=== PATIENT | female | born 1940 | race Caucasian/White ===

== ENCOUNTER → 2018-04-21 10:39 | Outpatient (CLI) | payer MEDICARE, SELFPAY | PROVIDERS: Family Provider Family Medicine; PCP Family Medicine; Visit Provider Family Medicine | DX: R00.0 Tachycardia, unspecified (principal); R42 Dizziness and giddiness | CPT/HCPCS: 93225; 93226 ==

== ENCOUNTER → 2020-01-16 06:46 | Outpatient (CLI) | payer MEDICARE, SELFPAY ==
--- NOTE | 2020-01-16 10:58 | STRESSREP ---
Stress Test Report Pharmacologic myocardial perfusion stress test. 79-year-old lady with a history of near syncope. Medications: Atorvastatin lisinopril hydrochlorothiazide. Stress protocol: Resting EKG demonstrates normal sinus rhythm with a rate of 65 bpm normal intervals are noted. Resting blood pressure is 162/80 mmHg. 0.4 mg of regadenoson was infused per usual protocol followed Intravenous saline flush injection continuous EKG monitoring was performed. The maximum heart rate attained was 90 bpm which was 63% of maximum predicted heart rate the maximum workload was 1 metabolic equivalent. At rest there were no ST or T wave changes noted to suggest ischemia at peak infusion nonspecific ST-T wave changes were noted. Occasional premature ventricular complexes present. The resting blood pressure 162/80 with a final blood pressure 130/78. Myocardial perfusion protocol. 15.0 mCi of technetium 99m sestamibi was injected at rest. 0.4 mg of regadenoson was infused per usual protocol. At peak infusion 45.0 mCi of technetium 99m sestamibi was injected stress images were obtained stress and rest images are reconstructed and compared in the short axis vertical long horizontal long axis. Gated images were also obtained per Perfusion SPECT analysis: Review of the stress images demonstrate normal uptake of tracer noted in all areas of the myocardium. The resting images similarly demonstrate normal uptake of tracer noted in all areas of the myocardium. No reversibility is noted to suggest ischemia no previous infarct is noted. Gated SPECT analysis: The gated ejection fraction is 66%. Conclusion: Normal pharmacologic myocardial perfusion stress test. Preserved ejection fraction.
== END ==
PROVIDERS: PCP Family Medicine; Referring Provider Family Medicine; Visit Provider Family Medicine
DX: R42 Dizziness and giddiness (principal); R55 Syncope and collapse; R07.89 Other chest pain
CPT/HCPCS: 78452; 93017; 93225; 93226; A9500; A4216; J2785

== ENCOUNTER → 2020-02-09 10:39 | Outpatient (CLI) | payer MEDICARE, SELFPAY ==
[2020-01-24 13:36] VITALS: BMI 40.6
--- NOTE | 2020-02-09 10:41 | ECHOD_ITS ---
Reason For Study: Chest tightness Procedure This was a 2D Doppler, Color Flow transthoracic echocardiogram. Exam performed in department. Left Ventricle Normal LV size. The estimated ejection fraction is 60 %. Stage 2 diastolic dysfunction. No regional wall motion abnormalities noted. Right Ventricle Normal RV size. Normal systolic function. Atria The left atrium is moderately enlarged. Normal right atrium. No doppler evidence for ASD. Mitral Valve There is no mitral valve stenosis. Mild (1+) mitral valve insufficiency. Tricuspid Valve There is no tricuspid stenosis. Trivial tricuspid valve insufficiency. Pulmonary artery systolic pressure is 35 mmHg. Aortic Valve Moderate diffuse aortic valve thickening. There is no aortic stenosis. No aortic valve insufficiency. Pulmonic Valve There is no pulmonic valvular stenosis. Mild (1+) pulmonic valve insufficiency. Great Vessels Normal aortic root. Pericardium/Pleural No pericardial effusion. MMode/2D Measurements & Calculations LVIDd: 4.7 cm IVSd: 1.4 cm LVOT diam: 2.1 cm LVIDs: 3.1 cm LVPWd: 0.94 cm LVOT area: 3.4 cm2 RVDd: 3.5 cm FS: 33.2 % Ao root diam: 3.8 cm LAV(MOD-bp): 76.0 ml LVAd ap4: 29.0 cm2 LAV(MOD-bp) Indexed: 36.8 ml/m2 EDV(MOD-sp4): 88.0 ml LAV(MOD-sp2): 66.5 ml EDV(sp4-el): 91.6 ml LAV(MOD-sp4): 84.1 ml LVAs ap4: 18.3 cm2 ESV(MOD-sp4): 42.9 ml ESV(sp4-el): 41.9 ml EF(MOD-sp4): 51.3 % EF(sp4-el): 54.2 % SV(MOD-sp4): 45.1 ml SV(sp4-el): 49.7 ml LA A4 area: 25.1 cm2 LA dimension(2D): 4.3 cm RA A4 area: 20.3 cm2 Doppler Measurements & Calculations MV E max candido: 88.9 cm/sec Lat Peak E' Candido: 5.5 cm/sec Med Peak E' Candido: 6.9 cm/sec MV A max candido: 91.5 cm/sec E/E' lat: 16.2 E/E' med: 13.0 MV E/A: 0.97 Ao V2 max: 167.4 cm/sec LV V1 max: 97.1 cm/sec PA V2 max: 75.8 cm/sec Ao max P.2 mmHg LV V1 max P.8 mmHg KAYY(V,D): 2.0 cm2 TR max candido: 255.5 cm/sec TR max P.1 mmHg Interpretation Summary The estimated ejection fraction is 60 %. Stage 2 diastolic dysfunction. Mild (1+) mitral valve insufficiency. Moderate diffuse aortic valve thickening. Ordering Physician: Michelle Luque Referring Physician: Norm Shankar Performed By: Valerie Mcfadden, WILIAM
== END ==
PROVIDERS: PCP Family Medicine; Referring Provider Specialist; Visit Provider Specialist
DX: R94.31 Abnormal electrocardiogram [ECG] [EKG] (principal); R07.9 Chest pain, unspecified; R42 Dizziness and giddiness
CPT/HCPCS: 93306

== ENCOUNTER → 2020-07-12 09:16 | Outpatient (CLI) | payer MEDICARE, SELFPAY ==
[2020-07-04 14:18] VITALS: BMI 42.3
--- NOTE | 2020-07-13 11:26 | PFT ---
INTRODUCTION: The patient is a 79-year-old female that presents for pulmonary function studies secondary to a diagnosis of shortness of breath. Respiratory therapy reports good patient effort. Bronchodilators were used during testing. INTERPRETATION: Forced expiration spirometry demonstrates no evidence of a large airways obstructive ventilatory defect. There was no significant response to aerosolized bronchodilators, based upon strict ATS criteria. There was, however, a rather robust mid flow bronchodilator response. Spirograms are of good quality and plateau normally. Body plethysmography was performed and revealed a trend towards hyperinflation. Diffusing capacity by single breath CO is within normal limits. IMPRESSION: Subtle stigmata of possible small airways disease. Clinical correlation is recommended.
== END ==
PROVIDERS: PCP Family Medicine; Referring Provider Specialist; Visit Provider Specialist
DX: R06.02 Shortness of breath (principal)
CPT/HCPCS: 94060; 94726; 94729

== ENCOUNTER → 2020-12-28 09:46 | Outpatient (CLI) | payer MEDICARE, SELFPAY ==
[2020-08-15 14:44] VITALS: BMI 42.7
--- NOTE | 2020-12-28 09:53 | RAD_ITS ---
PROCEDURE: Fluoroscopic guided left Hip Injection DATE: 12/28/2020. INDICATION: Female, 80 years old. Chronic left hip pain. PHYSICIAN: David Davey M.D. MEDICATIONS: 80 mg of KENALOG and 3 cc of 1% LIDOCAINE. 2% lidocaine administered subcutaneously for local anesthesia. ACCESS SITE: Left hip. NEEDLE: 22-gauge spinal needle. FLUOROSCOPY TIME (if supplied): (0:38) minutes/seconds. One image was obtained. FINDINGS: The risks, benefits, and alternatives to the procedure were explained to the patient. The specific risks of bleeding, infection, and neurovascular injury were detailed and accepted. Witnessed informed consent was obtained. A 22-gauge spinal needle was positioned under radiographic fluoroscopic localization. Approximately 2 cc of ISOVUE 300 instilled for localization purposes. Medication was then injected. The patient tolerated the procedure well without any immediate complications. RAD/Inj/Asp Kt Jt Should/Hip/Knee IMPRESSION: 1. Successful fluoroscopic guided hip injection. Electronically Signed: David Davey MD at 12:08 EDT , Service support ,
== END ==
PROVIDERS: PCP Family Medicine
DX: M16.12 Unilateral primary osteoarthritis, left hip (principal)
CPT/HCPCS: 20610; 77002; Q9967

== ENCOUNTER 2021-01-07 17:07 | Emergency (ER) | payer MEDICARE, SELFPAY ==
[2020-08-15 14:44] VITALS: BMI 42.7
[2021-01-07 17:08] VITALS: BP 164/78; PULSE 69; RESP 19; TEMP 36.2; O2SAT 97; BMI 42.5
--- NOTE | 2021-01-07 19:42 | CT_ITS ---
EXAM: CT HEAD WITHOUT INTRAVENOUS CONTRAST : 1940 CLINICAL INDICATION: fall/injury TECHNIQUE: Multiple axial images were obtained of the head without intravenous contrast. This CT exam was performed using one or more of the following dose reduction techniques: automated exposure control, adjustment of the mA and/or kV according to patient size, and/or use of iterative reconstruction technique. This report was created using [employer] report generation technology. COMPARISON: None. FINDINGS: BRAIN AND EXTRA-AXIAL SPACES: There is a 1.2 x 1.2 cm hypoechoic structure in the left basal ganglia may represent a remote lacunar infarct. No intra- or extra-axial hemorrhage. No intracranial mass or mass effect. Posterior fossa structures are unremarkable. Ventricles are appropriate for age. No hydrocephalus. Basal cisterns are patent. BONES/JOINTS: Unremarkable. No discrete lytic or blastic abnormalities. SINUSES: Unremarkable as visualized. Clear. MASTOID AIR CELLS: Unremarkable. Clear. ORBITS: Visualized globes, extraocular muscles, optic nerves and retrobulbar fat appear unremarkable. CT/Brain/Head without Contrast IMPRESSION: 1. No acute intracranial abnormality. 2. Remote left sided lacunar infarct. Individualized dose optimization techniques were used for this CT. at 2011 Reported and signed by: Francis Martinez MD Electronically Signed: Francis Martinez MD at 20:10 EDT Tel , Service support ,
--- NOTE | 2021-01-07 19:43 | EDS_ITS ---
HPI HPI - Fall History of Present Illness Chief Complaint: Fall Informant: patient Occured/Mechanism Occurred: Days (2) Mechanism/Context: Yes Same level fall and Yes trip Pain/Injury Pain Location: head and face Current Severity: Mild Maximum Severity: Mild Associated Symptoms Associated Symptoms: Negative for Parasthesias, Weakness, Loss of function, Inability to ambulate, Loss of consciousness and Amnesia Narrative Narrative: Patient states she had an injection in her left hip recently, it has been giving her some numbness in her left daley and ankle, as result he has been twisting at times, and it did so 2 days ago when she was walking on the sidewalk, this caused her to fall and hit her forehead and face on the concrete. She did not think anything of it because it was not bothering her too much, she has chronic headaches and has a headache but states she does not feel that the injury gave her 1. She had routine appointment at the eye doctor today, her vision and eyes were fine but with the periorbital ecchymosis around her right eye that is present now, it was recommended that she have a head scan. She denies any other injury. [facility] Medical History (Updated 01/07/21 @ 20:[address] Kapil Sy MD) Ankle fracture, bimalleolar, closed CKD (chronic kidney disease) stage 3, GFR 30-59 ml/min Essential hypertension Generalized osteoarthrosis, unspecified site History of solitary pulmonary nodule Holter monitor, abnormal Hyperlipidemia Home Medications multivitamin 1 tab PO QAM 01/20/20 [History Last Taken Unknown] biotin 5,000 mcg sublingual tablet 5,000 mcg SUBLINGUAL DAILY 05/01/20 [History Last Taken Unknown] aspirin 81 mg tablet,delayed release 81 mg PO DAILY 06/06/20 [History Last Taken Unknown] calcium carbonate 200 mg calcium (500 mg) chewable tablet 200 mg PO BID PRN 05/10 [History Last Taken Unknown] simethicone 125 mg chewable tablet 125 mg PO QD-BID PRN 06/06/20 [History Last Taken Unknown] coenzyme Q10 100 mg tablet 100 mg PO DAILY 07/04/20 [History Last Taken Unknown] hydrochlorothiazide 25 mg tablet mg PO 07/04/20 [History Last Taken Unknown] red yeast rice 600 mg capsule 600 mg PO BID 07/04/20 [History Last Taken Unknown] metoprolol succinate 100 mg tablet,extended release 24 hr 100 mg PO DAILY #90 tab 08/27/20 [Rx Last Taken Unknown] Allergy/AdvReac Type Severity Reaction Status Date / Time diltiazem AdvReac Intermediate Flushed, Verified 01/07/21 17:10 dizzy, h/a, sob, irreg HR Dgfbjni-Fix-Iso Reductase AdvReac Other Verified 01/07/21 17:11 Inhibitor Family History Mother Heart disease Hypertension Father Hypertension Kidney disease Surgical History History of arthroscopy of right knee History of carpal tunnel surgery of right wrist Social History (Updated 08/15/20 @ 16:[address] Michelle Luque MD) Smoking Status: Never smoker how long ago did patient quit smokin years ago alcohol intake: never substance use type: does not use caffeine: Yes Type: coffee Number of servings: 2 ROS ROS ED Constitutional Constitutional ED: Denies chills or fever(s) Eyes Eyes: Denies change in vision or diplopia ENT ENT ED: Denies rhinorrhea or sore throat Cardiovascular Cardiovascular: Denies chest pain or palpitations Respiratory/Chest Respiratory/Chest: Denies cough or dyspnea Gastrointestinal Gastrointestinal: Denies abdominal pain, diarrhea, nausea or vomiting Genitourinary Genitourinary ED: Denies dysuria or hematuria Musculoskeletal Musculoskeletal: Reports neck pain; Denies back pain Integumentary Reports Abrasions and other Details: contusion R forehead ; Denies abscess or rash Neurologic Neurologic: Denies paresthesias or weakness Psychiatric Psychiatric: Denies anxiety or suicidal thoughts EXAM Physical Exam Const Vital Signs: 01/07/21 17:08 01/07/21 19:59 Temperature 97.2 F L Temperature Source Temporal Pulse Rate 69 Respiratory Rate 19 H Respiratory Effort Normal Blood Pressure 164/78 H Blood Pressure Mean 106 Pulse Ox 97 Oxygen Delivery Method Room Air Positive well nourished and well developed General Appearance ED: well developed and NAD HEENT Reports moist mucous membranes HEENT Narrative: Mild tenderness right forehead without crepitance or depression. Right periorbital ecchymosis. Abrasion right chin. Full range of motion of the jaw without difficulty. normocephalic and trauma Eyes PERRL and EOMs intact bilaterally Neck full ROM and supple Neck Narrative: Mildly tender left paraspinal musculature base of neck, no midline tenderness General: tenderness Resp normal respiratory effort and clear to auscultation bilaterally Cardio regular rate, regular rhythm and no murmurs GI non-tender and non-distended Auscultation: normoactive bowel sounds Palpation: soft Back/Spine no CVA tenderness General Back: other FROM Extremity normal to inspection General Extremety ED: Negative for edema, pulses abnormal or tenderness General Extremity: Negative for edema or pulses abnormal Neuro oriented x3, CN's II-XII intact bilaterally and no sensory deficits noted Sensorium / Orientation: awake and alert Motor Exam: strength 5/5 throughout Skin no rashes or lesions noted MDM MDM MDM Narrative Medical decision making narrative: Patient is walking well without any leg weakness. I discussed the lacunar infarct seen on her CT scan, she has never had any clinical symptoms of a stroke, but she is having the numbness in the left lower extremity that we discussed, however she states this started just after hip joint cortisone injection 2 weeks ago and is probably related. I am comfortable letting her go home and follow-up. She is already on a full aspirin a day which I would continue. She was reassured with regards to her relatively minor injury, I suspect the contusion/hematoma on her forehead settled with gravity looking like a periorbital ecchymosis, but there is no evidence of an intracranial injury. We discussed reasons to return and follow-up and she is comfortable with that plan. We also discussed using an Francisco wrap or an ankle brace to give her more stability for her ankle. She does not have a foot drop. Radiography Diagnostic Testing: Radiology Impression Brain CT 01/07/21 19:42 IMPRESSION: 1. No acute intracranial abnormality. 2. Remote left sided lacunar infarct. Individualized dose optimization techniques were used for this CT. at 2011 Reported and signed by: Francis Martinez MD Electronically Signed: Francis Martinez MD at 20:10 EDT Tel , Service support , Discharge Plan Triage Chief Complaint: Fall ED Provider: Kapil Sy Dx/Rx/DC Orders Clinical Impression: Closed head injury without loss of consciousness, Accidental fall, Abrasion of face, Lacunar infarction Instructions: ED Head Injury (Adult) Prescriptions: No Action multivitamin Tablet 1 tab PO QAM RF: 0 biotin 5,000 mcg tablet, sublingual 5,000 mcg SUBLINGUAL DAILY RF: 0 aspirin [Adult Low Dose Aspirin] 81 mg tablet,delayed release (DR/EC) 81 mg PO DAILY RF: 0 simethicone [Gas-X Extra Strength] 125 mg tablet,chewable 125 mg PO QD-BID PRNRF: 0 calcium carbonate [Tums] 200 mg calcium (500 mg) tablet,chewable 200 mg PO BID PRNRF: 0 hydrochlorothiazide 25 mg tablet PO RF: 0 coenzyme Q10 100 mg tablet 100 mg tablet 100 mg PO DAILY RF: 0 red yeast rice 600 mg capsule 600 mg PO BID RF: 0 metoprolol succinate 100 mg tablet extended release 24 hr 100 mg PO DAILY Qty: 90 RF: 3 Primary Care Provider: Norm Shankar Referrals: Norm Shankar MD [Primary Care Provider] - As Needed Disposition Disposition: Home, self care
[2021-01-07 20:42] VITALS: RESP 18
== END 2021-01-07 20:42 | disposition home or self-care (01) ==
PROVIDERS: Emergency Provider Emergency Medicine; PCP Family Medicine
DX: S00.81XA Abrasion of other part of head, initial encounter (principal); W01.198A Fall on same level from slipping, tripping and stumbling with subsequent striking against other object, initial encounter; Y93.01 Activity, walking, marching and hiking; Y92.480 Sidewalk as the place of occurrence of the external cause; Y99.9 Unspecified external cause status; Z79.82 Long term (current) use of aspirin; Z86.73 Personal history of transient ischemic attack (TIA), and cerebral infarction without residual deficits; Z87.891 Personal history of nicotine dependence; I63.81 Other cerebral infarction due to occlusion or stenosis of small artery; I12.9 Hypertensive chronic kidney disease with stage 1 through stage 4 chronic kidney disease, or unspecified chronic kidney disease; N18.30 Chronic kidney disease, stage 3 unspecified; E78.5 Hyperlipidemia, unspecified
CPT/HCPCS: 70450; 99282

== ENCOUNTER 2022-04-18 11:50 | Inpatient (IN) | payer MEDICARE, SELFPAY ==
[2022-04-18] VITALS (28 sets, daily range): BP systolic 106–172; BP diastolic 44–121; PULSE 53–152; RESP 12–23; TEMP 36.1–36.8; O2SAT 92–98; BMI 40.3; BMI 40.6
--- NOTE | 2022-04-18 12:02 | EKG12_ITS ---
Test Reason : CP/PALPS Blood Pressure : / mmHG Vent. Rate : 134 BPM Atrial Rate : 000 BPM P-R Int : 000 ms QRS Dur : 086 ms QT Int : 300 ms P-R-T Axes : 000 025 052 degrees QTc Int : 448 ms Atrial fibrillation with rapid ventricular response Nonspecific ST and T wave abnormality Abnormal ECG Confirmed by MANUELA BERNSTEIN, FRANCK ([id number]), deputy editor in chief CLARISSE JOHNSON ([id number]) on 04/21/2022 10:08:23 AM Referred By: BETTY Confirmed By:FRANCK ROY MD
--- NOTE | 2022-04-18 12:07 | EDS_ITS ---
HPI History of Present Illness Chief Complaint: Chest Pain Informant: patient Narrative Narrative: Patient presents via EMS. She noticed a couple hours ago that she had some slight discomfort in her left upper chest that went to count of her shoulder base of the neck and back of the shoulder area. She checked her blood pressure and it was about 152/122. However, the monitor stated that her heart rate was very quick and very variable with its rate. She did not feel the palpitations. She did not feel short of breath. She did not feel nauseated or sweaty. She did feel slightly lightheaded but has had problems with feeling lightheaded for couple years. She was placed on metoprolol couple years ago and that did help but she has been having more intermittent episodes with this nonspecific lightheadedness recently. It is not normally associated with chest pressure. She does not know a bit pain associated with heart rhythm problems. She denies any history of heart rhythm abnormalities. However, her problem list has a listing of nonsustained V. tach and atrial tachycardia. She does have history of chronic kidney disease. There have been no recent medication changes. Nothing really makes her symptoms better or worse although her symptoms are gone now. She is still tachycardic but does not feel this. [facility] Medical History CKD (chronic kidney disease) stage 3, GFR 30-59 ml/min Essential hypertension Generalized osteoarthrosis, unspecified site History of solitary pulmonary nodule Hyperlipidemia Home Medications multivitamin 1 tab PO DAILY 01/20/20 [History Last Taken 04/17/22] aspirin 81 mg tablet,delayed release (Adult Low Dose Aspirin) 81 mg PO DAILY 06/06/20 [History Last Taken 04/17/22] hydrochlorothiazide 25 mg tablet 25 mg PO DAILY 07/04/20 [History Last Taken 04/18/22] ezetimibe 10 mg tablet (Zetia) 10 mg PO DAILY CHOLESTEROL 04/18/22 [History Last Taken 04/18/22] lisinopril 40 mg tablet 40 mg PO DAILY PRN BP 04/18/22 [History Last Taken 04/18/22] metoprolol succinate 100 mg tablet,extended release 24 hr 100 mg PO DAILY HEART 04/18/22 [History Last Taken 04/18/22] Allergy/AdvReac Type Severity Reaction Status Date / Time amlodipine [From [facility]] AdvReac Intermediate swelling Verified 04/18/22 12:54 diltiazem AdvReac Intermediate Flushed, Verified 04/18/22 12:54 dizzy, h/a, sob, irreg HR Ldfuyui-TMS-MvD Reductase AdvReac Other Verified 04/18/22 12:54 Inhibitor [Vsehfqk-Ouz-Iaz Reductase Inhibitor] Family History Mother Heart disease Hypertension Father Hypertension Kidney disease Surgical History History of arthroscopy of right knee History of carpal tunnel surgery of right wrist Social History Smoking Status: Never smoker how long ago did patient quit smokin years ago alcohol intake: never substance use type: does not use caffeine: Yes Type: coffee Number of servings: 2 ROS ROS ED Constitutional Constitutional ED: Denies chills or fever(s) Eyes Eyes: Denies change in vision ENT ENT ED: Denies sore throat Cardiovascular Cardiovascular: Reports chest pain; Denies palpitations or racing heartbeat Respiratory/Chest Respiratory/Chest: Denies cough or dyspnea Gastrointestinal Gastrointestinal: Denies nausea or vomiting Musculoskeletal Musculoskeletal: Reports neck pain; Denies arthralgias or back pain Integumentary Denies Abrasions or rash Neurologic Neurologic: Denies headache(s), paresthesias or weakness Endocrine Endocrinology: Denies polydipsia or polyuria Hematologic/Lymphatic Hematologic/Lymphatic: Denies easy bleeding, easy bruising or lymphadenopathy Allergic/Immunologic Allergic/Immunologic ED: Denies urticaria EXAM Physical Exam Const Vital Signs: 04/18/22 11:51 04/18/22 12:03 04/18/22 12:25 Temperature 96.9 F L Temperature Source Temporal Pulse Rate 140 H 150 H 144 H Respiratory Rate 13 20 H Blood Pressure 172/121 H 146/103 H Blood Pressure Mean 138 117 Blood Pressure Source Blood Pressure Position Blood Pressure Location Pulse Ox 96 92 Oxygen Delivery Method Room Air Room Air 04/18/22 12:25 04/18/22 12:28 04/18/22 12:32 Temperature Temperature Source Pulse Rate 133 H 138 H Respiratory Rate Blood Pressure Blood Pressure Mean Blood Pressure Source Blood Pressure Position Blood Pressure Location Pulse Ox 95 Oxygen Delivery Method Room Air 04/18/22 12:33 04/18/22 12:35 04/18/22 12:38 Temperature Temperature Source Pulse Rate 152 H 127 H 145 H Respiratory Rate 17 Blood Pressure 128/97 H Blood Pressure Mean 107 Blood Pressure Source Blood Pressure Position Blood Pressure Location Pulse Ox 94 Oxygen Delivery Method Room Air 04/18/22 12:41 04/18/22 12:44 04/18/22 12:45 Temperature Temperature Source Pulse Rate 133 H 126 H 143 H Respiratory Rate 19 H Blood Pressure 136/105 H Blood Pressure Mean 115 Blood Pressure Source Blood Pressure Position Blood Pressure Location Pulse Ox 93 Oxygen Delivery Method Room Air 04/18/22 14:23 04/18/22 14:30 Temperature 97.4 F L 97.4 F L Temperature Source Temporal Temporal Pulse Rate 145 H 132 H Respiratory Rate 23 H 21 H Blood Pressure 146/111 H 146/111 H Blood Pressure Mean 122 122 Blood Pressure Source Monitor Blood Pressure Position Semi-Fowlers Blood Pressure Location Right Arm Pulse Ox 95 98 Oxygen Delivery Method Room Air Room Air Positive well nourished General Appearance ED: NAD HEENT Reports moist mucous membranes Eyes General Eye ED: Negative for scleral icterus Neck supple and no JVD Chest Wall inspection of chest normal Resp normal respiratory effort Auscultation: Negative for rales, rhonchi or wheezes Cardio Negative for regular rate or regular rhythm Rate: tachycardic Rhythm: abnormal rhythm GI normal to inspection, nondistended, normoactive bowel sounds, soft to palpation and non-tender Back/Spine no CVA tenderness Extremity normal to inspection General Extremety ED: Negative for edema or pulses abnormal General Extremity: Negative for edema or pulses abnormal Neuro Sensorium / Orientation: awake and alert Psych mental status grossly normal Skin no rashes or lesions noted MDM MDM MDM Narrative Medical decision making narrative: Patient CBC is overall normal. Electrolytes are generally unremarkable. TSH troponin magnesium are good. Chest x-ray shows some poor inspiration and mild atelectasis. I give the patient 3 doses of metoprolol for a total of 15 mg. Her heart rate came down about 125. Her symptoms were gone. But the heart rate went back up to the 140s and she got a little of the chest tightness again. We did repeat that EKG. It showed fibrillation still but did not show any acute ST or T wave changes. I discussed the case with Dr. Mccarthy. My concern is that this patient is having progressive tachycardia unrelieved with metoprolol and an allergy to diltiazem. It was recommended we start amnio as a bolus and drip. This was done. I am talking with hospitalist about admission. Lab Data Attestation: I reviewed the patient's lab results. Labs: Laboratory Results - last 24 hr 04/18/22 04/18/22 12:03 12:03 WBC 8.6 RBC 4.29 Hgb 12.9 Hct 39.2 MCV 91.4 MCH 30.1 MCHC 32.9 RDW Std Deviation 40.9 RDW Coeff of Robyn 12.4 Plt Count 319 MPV 11.1 Immature Gran % (Auto) 0.200 Neut % (Auto) 67.7 Lymph % (Auto) 18.6 L [place] % (Auto) 11.8 H Eos % (Auto) 1.6 Baso % (Auto) 0.1 Absolute Neuts (auto) 5.8 Absolute Lymphs (auto) 1.60 Nucleated RBC % 0 Sodium 141 Potassium 4.2 Chloride 108 H Carbon Dioxide 28.0 Anion Gap 5 BUN 20 H Creatinine 0.86 Estim Creat Clear Calc 43.16 Est GFR (MDRD) Af Amer 81 Est GFR (MDRD) Non-Af 67 BUN/Creatinine Ratio 23.1 H Glucose 102 Calcium 9.3 Magnesium 2.3 Troponin I High Sens 13 TSH 3.50 Radiography Diagnostic Testing: Clinical Impression(s) from Imaging Studies Chest X-Ray 04/18/22 12:10 IMPRESSION: Poor inspiration with some bibasilar atelectasis. Electronically Signed: Deven Barton MD at 12:31 EDT , EKG Initial EKG: Comments: EKG done for rapid heart rate read by me shows atrial fibrillation with overall rate of 134 at this time. No ventricular ectopy is noted. No acute ST elevation or depression is noted. QRS duration and QTc are normal. This is a change from her EKG of 02 Feb 2015 where she was in a normal sinus rhythm. Discharge Plan Triage Chief Complaint: Chest Pain ED Provider: Minh Joe Dx/Rx/DC Orders Clinical Impression: New onset atrial fibrillation, Atrial fibrillation with rapid ventricular response, Chest pain Prescriptions: No Action multivitamin Tablet 1 tab PO DAILY aspirin [Adult Low Dose Aspirin] 81 mg tablet,delayed release (DR/EC) 81 mg PO DAILY hydrochlorothiazide 25 mg tablet 25 mg PO DAILY lisinopril 40 mg tablet 40 mg PO DAILY PRN (Reason: BP) ezetimibe [Zetia] 10 mg tablet 10 mg PO DAILY metoprolol succinate 100 mg tablet extended release 24 hr 100 mg PO DAILY Rx Instructions: TAKE 1 TABLET EVERY DAY Primary Care Provider: Norm Shankar Referrals: Norm Shankar MD [Primary Care Provider] - Disposition Disposition: Acute Care Hospital [facility]
--- NOTE | 2022-04-18 12:10 | RAD_ITS ---
STUDY: X-RAY CHEST REASON FOR EXAM: Female, 81 years old. chest pain TECHNIQUE: Single AP portable view of the chest. COMPARISON: 02/01/2015 FINDINGS: Poor inspiration with some bibasilar atelectasis. There is no demonstrated pleural abnormality. Normal size heart. Normal mediastinum and benito. Normal visualized pulmonary arteries. Normal visualized aortic arch and descending thoracic aorta. Normal visualized thoracic spine. Normal visualized ribs, clavicles, and shoulders. There is no demonstrated abnormality of the visualized soft tissue structures of the upper abdomen. RAD/Chest 1 View (Portable) IMPRESSION: Poor inspiration with some bibasilar atelectasis. Electronically Signed: Deven Barton MD at 12:31 EDT ,
[2022-04-18] MEDS: Metoprolol Tartrate 5 MG/5 ML Vial IV ×3 (12:24→12:38)
[2022-04-18 12:43] LABS: Absolute Neutrophil Count 5.8 X10^3/uL (2.0-7.7); Basophil# 0.01 X10^3/uL; Basophil% 0.1 % (0-1); Eosinophil# 0.14 X10^3/uL; Eosinophils% 1.6 % (0-5); Hematocrit 39.2 % (37-47); Hemoglobin 12.9 g/dL (12.0-15.0); Lymphocyte % 18.6 % (19-41); Mean Corp Hgb Conc 32.9 g/dL (32-36); Mean Corpuscular Hgb 30.1 pg (27.0-32.0); Mean Corpuscular Volume 91.4 fL (81-99); Mean Platelet Vol. 11.1 fl (6.2-12.0); Monocyte# 1.01 X10^3/uL; Monocyte% 11.8 % (0-10); NRBC Flagged by Analyzer 0 % (0-5); Neutrophil % 67.7 % (47-70); Platelet Count 319 K/mm3 (150-450); RBC Distribution Width CV 12.4 % (11.6-14.6); RBC Distribution Width SD 40.9 fl (35.1-43.9); Red Blood Count 4.29 M/mm3 (4.2-5.4); White Blood Count 8.6 K/mm3 (4.4-11.0)
[2022-04-18 12:47] LABS: Anion Gap 5 (5-15); BUN 20 mg/dL (7-18); BUN/Creat Ratio 23.1 RATIO (10-20); Calcium,Total 9.3 mg/dL (8.5-10.1); Chloride 108 mmol/L (98-107); Creatinine, Serum 0.86 mg/dL (0.55-1.02); EST Glomerular Filtration Rate 67 mL/min (>60); Est Glom Filt Rate - Afr Amer 81 mL/min (>60); Estimated Creatinine Clearance 43.16 ml/min; Glucose 102 mg/dL (74-106); Magnesium 2.3 mg/dL (1.6-2.6); Potassium 4.2 mmol/L (3.5-5.1); Sodium Level 141 mmol/L (136-145); Troponin-I HS (w/2H Reflex) 13 pg/mL (3.0-54.0)
--- NOTE | 2022-04-18 13:30 | EKG12_ITS ---
Test Reason : REPEAT-CHEST PAIN Blood Pressure : / mmHG Vent. Rate : 135 BPM Atrial Rate : 000 BPM P-R Int : 000 ms QRS Dur : 084 ms QT Int : 312 ms P-R-T Axes : 000 015 059 degrees QTc Int : 468 ms Atrial fibrillation with rapid ventricular response Abnormal ECG Confirmed by MANUELA BERNSTEIN, FRANCK ([id number]), editor sound CLARISSE JOHNSON ([id number]) on 04/21/2022 10:08:41 AM Referred By: BETTY Confirmed By:FRANCK ROY MD
[2022-04-18 14:16] LABS: Reflex Troponin-HS? (from REC) Y
--- NOTE | 2022-04-18 14:25 | NURSING ---
DR ROY IN ROOM
--- NOTE | 2022-04-18 14:30 | HP.PCM.HOS_ITS ---
HPI - General General Date of Admission: 04/18/22 Date of Service: 04/18/22 Chief Complaint: Chest pain HPI Narrative The patient is an 81 y/o F w/ PMHx: Former tobacco use, CT prior evidence CVA, HTN, HLD, Morbid Obesity, CKD stage III unclear subtype, Hx NSVT/Atrial tachycardia who presents to the [facility] ED on 04/18/22 with history of onset left upper chest discomfort described as a pressure, 3-5 out of 10 in severity with its onset that radiated into the base of her neck and her shoulder area with blood pressure assessment at home noted to be 150s over 120s with a heart rate noted to be very quick and variable although she did not significantly feel this heart rate increase nor any palpitations associated and no specific dyspnea, na usea, emesis or diaphoresis but did have associated mild lightheadedness although this is difficult to see she has had this on and off with intermittent episodes for couple years but she is never had chest discomfort specifically pressure associated prompting ED evaluation. Upon ED arrival she notes that her symptoms have improved despite her ongoing heart rate elevation. She denies any chest discomfort or pressure at this time or any lightheadedness or dizziness. 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 Work-up in the ED included T96.9, initially heart rate 140, BP initially 172/121, respiratory rate 13, 96% on room air with most recent vitals heart rate 132, BP 146/111, respiratory rate 21, 98% on room air, CBC with WC 8.6, hemoglobin 12.9, platelet 319 without marked shift, BMP with chloride 108, BUN/creat 20/0.86 otherwise unremarkable, magnesium 2.3, troponin 13, TSH 3.50, chest x-ray with poor inspiration with some bibasilar atelectasis, EKG with atrial fibrillation with RVR. In the ED patient administered amiodarone bolus and initiated on amiodarone drip. Heparin drip with bolus also initiated in the ED. [facility] Medical History (Updated 04/18/22 @ 15:[address] Trinidad Hernandez MD) CKD (chronic kidney disease) stage 3, GFR 30-59 ml/min Essential hypertension Former tobacco use Generalized osteoarthrosis, unspecified site History of solitary pulmonary nodule Hyperlipidemia Lacunar infarction Nonsustained ventricular tachycardia PAF (paroxysmal atrial fibrillation) Home Medications multivitamin 1 tab PO DAILY 01/20/20 [History Last Taken 04/17/22] aspirin 81 mg tablet,delayed release (Adult Low Dose Aspirin) 81 mg PO DAILY 06/06/20 [History Last Taken 04/17/22] hydrochlorothiazide 25 mg tablet 25 mg PO DAILY 07/04/20 [History Last Taken 04/18/22] ezetimibe 10 mg tablet (Zetia) 10 mg PO DAILY CHOLESTEROL 04/18/22 [History Last Taken 04/18/22] lisinopril 40 mg tablet 40 mg PO DAILY PRN BP 04/18/22 [History Last Taken 04/18/22] metoprolol succinate 100 mg tablet,extended release 24 hr 100 mg PO DAILY HEART 04/18/22 [History Last Taken 04/18/22] Allergy/AdvReac Type Severity Reaction Status Date / Time amlodipine [From [facility]] AdvReac Intermediate swelling Verified 04/18/22 12:54 diltiazem AdvReac Intermediate Flushed, Verified 04/18/22 12:54 dizzy, h/a, sob, irreg HR Kqcvxsh-EQD-JqH Reductase AdvReac Other Verified 04/18/22 12:54 Inhibitor [Qzinrxt-Euk-Gpo Reductase Inhibitor] Family History Mother Heart disease Hypertension Father Hypertension Kidney disease Surgical History (Updated 04/18/22 @ 15:[address] Trinidad Hernandez MD) History of ankle surgery History of arthroscopy of right knee History of carpal tunnel surgery of right wrist Social History (Updated 04/18/22 @ 15:[address] Trinidad Hernandez MD) household members: none Smoking Status: Former smoker how long ago did patient quit smokin years ago alcohol intake: never substance use type: does not use caffeine: Yes Type: coffee Number of servings: 2 ROS ROS Narrative Admission Review of Systems: CONSTITUTIONAL: No weight loss, fever, chills, + weakness or fatigue. HEENT: Eyes: No visual loss, blurred vision, double vision or yellow sclerae. Ears, Nose, Throat: No hearing loss, sneezing, congestion, runny nose or sore throat. SKIN: No rash or itching, lesions, wounds. CARDIOVASCULAR: + Chest pressure, lightheadedness/dizziness, No palpitations, edema, orthopnea, syncopal events. RESPIRATORY: No shortness of breath, cough or sputum, wheezing, hemoptysis. GASTROINTESTINAL: No anorexia, nausea, vomiting or diarrhea, abdominal pain, melena, BRBPR. GENITOURINARY: No dysuria, frequency, urgency or retention. NEUROLOGICAL: + LH/Dizziness. No headache, syncope, paralysis, ataxia, numbness or tingling in the extremities, focal weakness, change in bowel or bladder control, seizure. MUSCULOSKELETAL: + muscle, back pain, joint pain or stiffness. HEMATOLOGIC: + anemia, bleeding or bruising. LYMPHATICS: No enlarged nodes. No history of splenectomy. PSYCHIATRIC: No history of depression or anxiety. ENDOCRINOLOGIC: No reports of sweating, cold or heat intolerance. No polyuria or polydipsia. ALLERGIES: No history of asthma, hives, eczema or rhinitis. Vital Signs Vital Signs Vital Signs: 04/18/22 11:51 04/18/22 12:03 04/18/22 12:25 Temperature 96.9 F L Temperature Source Temporal Pulse Rate 140 H 150 H 144 H Respiratory Rate 13 20 H Blood Pressure 172/121 H 146/103 H Blood Pressure Mean 138 117 Blood Pressure Source Blood Pressure Position Blood Pressure Location Pulse Ox 96 92 Oxygen Delivery Method Room Air Room Air 04/18/22 12:25 04/18/22 12:28 04/18/22 12:32 Temperature Temperature Source Pulse Rate 133 H 138 H Respiratory Rate Blood Pressure Blood Pressure Mean Blood Pressure Source Blood Pressure Position Blood Pressure Location Pulse Ox 95 Oxygen Delivery Method Room Air 04/18/22 12:33 04/18/22 12:35 04/18/22 12:38 Temperature Temperature Source Pulse Rate 152 H 127 H 145 H Respiratory Rate 17 Blood Pressure 128/97 H Blood Pressure Mean 107 Blood Pressure Source Blood Pressure Position Blood Pressure Location Pulse Ox 94 Oxygen Delivery Method Room Air 04/18/22 12:41 04/18/22 12:44 04/18/22 12:45 Temperature Temperature Source Pulse Rate 133 H 126 H 143 H Respiratory Rate 19 H Blood Pressure 136/105 H Blood Pressure Mean 115 Blood Pressure Source Blood Pressure Position Blood Pressure Location Pulse Ox 93 Oxygen Delivery Method Room Air 04/18/22 14:23 Temperature 97.4 F L Temperature Source Temporal Pulse Rate 145 H Respiratory Rate 23 H Blood Pressure 146/111 H Blood Pressure Mean 122 Blood Pressure Source Monitor Blood Pressure Position Semi-Fowlers Blood Pressure Location Right Arm Pulse Ox 95 Oxygen Delivery Method Room Air Weight Weight: 227 lb 11.8 oz Body Mass Index (BMI) 40.3 Physical Exam Narrative Physical Examination: General: Awake, alert, oriented x 3 and cooperative, seated upright in the ED bed, no acute distress, notes symptoms of since resolved even though still A. fib RVR. Skin: Normal color, normal turgor, no icterus, no cyanosis. HEENT: AT/NC, EOMI, PERRLA, MMM, no carotid bruits or JVD noted. Lungs: Mildly diminished, greater bases, appropriate effort,, no rales, ronchi or wheezing. Heart: Irregular irregular; no gallop, rub audible. Abdomen: Soft, morbidly obese, NTTP, ND, distant normal BS, no HSM. Extremities: No cyanosis, clubbing, or edema. Neurological: Patient awake, alert, oriented as noted, cognitive function intact; pupils equally reactive to light and accommodation, cranial nerves II- XII grossly normal, moving all 4 extremities, no focal deficits, strength mildly to moderately globally Emma secondary to acute presentation, improving. Psychiatric: Affect appears mildly fatigued otherwise normal, no acute evidence of depressive or anxiety feelings. Results Lab / Micro Data Result Diagrams: 04/18/22 12:03 04/18/22 12:03 Labs: Laboratory Results - last 24 hr 04/18/22 12:03: WBC 8.6, RBC 4.29, Hgb 12.9, Hct 39.2, MCV 91.4, MCH 30.1, MCHC 32.9, RDW Std Deviation 40.9, RDW Coeff of Robyn 12.4, Plt Count 319, MPV 11.1, Immature Gran % (Auto) 0.200, Neut % (Auto) 67.7, Lymph % (Auto) 18.6 L, [place] % (Auto) 11.8 H, Eos % (Auto) 1.6, Baso % (Auto) 0.1, Absolute Neuts (auto) 5.8, Absolute Lymphs (auto) 1.60, Nucleated RBC % 0 04/18/22 12:03: Sodium 141, Potassium 4.2, Chloride 108 H, Carbon Dioxide 28.0, Anion Gap 5, BUN 20 H, Creatinine 0.86, Estim Creat Clear Calc 43.16, Est GFR (MDRD) Af Amer 81, Est GFR (MDRD) Non-Af 67, BUN/Creatinine Ratio 23.1 H, Glucose 102, Calcium 9.3, Magnesium 2.3, Troponin I High Sens 13, TSH 3.50 Radiology Impression Chest X-Ray 04/18/22 12:10 IMPRESSION: Poor inspiration with some bibasilar atelectasis. Electronically Signed: Deven Barton MD at 12:31 EDT , Assessment & Plan Assessment/Plan (1) New onset atrial fibrillation: PLAN: Plan The patient is an 81 y/o F w/ PMHx: Former tobacco use, CT prior evidence CVA, HTN, HLD, Morbid Obesity, CKD stage III unclear subtype, Hx NSVT/Atrial tachyc ardia who presents to the [facility] ED on 04/18/22 with history of onset left upper chest discomfort described as a pressure, 3-5 out of 10 in severity with its onset that radiated into the base of her neck and her shoulder area with blood pressure assessment at home noted to be 150s over 120s with a heart rate noted to be very quick and variable although she did not significantly feel this heart rate increase nor any palpitations associated and no specific dyspnea, nausea, emesis or diaphoresis but did have associated mild lightheadedness although this is difficult to see she has had this on and off with intermittent episodes for couple years. #1. New onset, Paroxsymal atrial fibrillation with associated Chest pain: EKG in ED w/ atrial fibrillation w/ RVR. Patient administered amiodarone bolus and transition to drip in ED. Will admit to PCU, maintain on telemetry, obtain cardiac enzyme serial set, magnesium level and TSH levels normal per ED, will obtain ECHO as last noted 02/09/20 with EF 60%, stage 2 diastolic dysfunction, mild MVI, moderate diffuse AV thickening. CHADs scoring appropriate for anticoagulation start with heparin drip per Cardiology preference. Will continue on amiodarone drip with continued cardiology consultation. Records from [facility] including most recent cardiac catheterization and carotid ultrasound requested per cardiology request. Will maintain n.p.o. after midnight with judicious IV fluids for possible cardioversion attempt. #2. Chronic Kidney Disease Stage III, unclear subtype: Admission BUN/Cr 20/0.86, baseline renal function similar noted to be 0.8-0.9 primarily, repeat BMP in AM. #3. Prior CT Evidence CVA: 01/2021 CT head w/ noted remote left sided lacunar infarct, given history potentially having PAF with RVR episodes, will maintain on eliquis as noted, continue HTN regimen with alterations pending RVR improvement with amiodarone as noted, statin intolerant, on zetia, no DM history. #4. Hypertension: Continue home regimen including hydrochlorothiazide, lisinopril, currently on IV amiodarone as noted therefore will hold metoprolol but defer resumption or alteration to cardiology service, PRN hydralazine. #5. Hyperlipidemia: We will continue patient home Zetia regimen, FLP in AM. Noted statin intolerance. #6. Morbid Obesity: Weight loss and lifestyle changes encouraged, nutrition consulted. #7. Former tobacco use: Encourage continued tobacco cessation. #8. DVT Prophylaxis: SCDs, heparin drip per cardiology preference as noted. #9. CODE status: Patient ERMELINDA is her daughter. She does not have a living will in place but this was discussed and encouraged her to discuss with case management/social work to assist in setting up. Discussed CODE status at length including difference between FULL code, DNR-CCA and DNR-CC status. Following discussions about the differences in these status, requested Full Code status. Advanced Care Planning Face to Face Time: 18 minutes. Charges/Coding Visit Charges Inpatient E&M: 07322 Init Hosp L3 Procedures Hospitalists Procedures: 25736 Advncd Care Plan 30 Min
--- NOTE | 2022-04-18 14:35 | NURSING ---
DR ROCHE FOR DR HERNÁNDEZ
--- NOTE | 2022-04-18 14:40 | NURSING ---
PCU WHITE AFIB RVR, CHEST PAIN
--- NOTE | 2022-04-18 14:54 | CON.PCM.CA_ITS ---
Assessment & Plan Assessment/Plan (1) Atrial fibrillation with rapid ventricular response: PLAN: The patient has been found to have atrial fibrillation with rapid ventricular response. This may be secondary to a combination of her age and history of hypertension. It is unclear at this time whether this is the reason that she has episodes of dizziness or lightheadedness. At the moment she is continuing to be monitored. Her initial cardiac enzymes are negative. Her initial ECG and repeat ECG demonstrated atrial fibrillation with RVR with no acute electrocardiographic changes. Her previous [facility] noninvasive studies were reviewed. At the moment she will continue rate control therapy with her beta-bety. An attempt will be made to use IV amiodarone to assist with her rate control and potentially regain sinus rhythm. She will be started on anticoagulant therapy with IV heparin. She may need to be considered for an attempt at synchronized biphasic DC cardioversion. She will also be asked to have follow-up evaluation of her atrial size and her ventricular size, wall motion, and systolic function with a transthoracic echocardiogram. Her [facility] medical records will be requested for continuity of care. (2) Hyperlipidemia: PLAN: The patient has a history of hyperlipidemia. She apparently is intolerant to statins. She has been on medical therapy with Zetia. (3) Essential hypertension: PLAN: The patient has a history of hypertension. It is noted her blood pressure was reported as elevated at home as well as in the emergency department. This may be a contributing factor to her atrial fibrillation. She will need to have her blood pressure monitored. Her medications may need to be adjusted to help bring her pressure under better control. (4) Chest pain: PLAN: The patient did describe chest discomfort. This may be secondary to her rapid ventricular response. Based upon the patient's report she has been evaluated less than a year ago with a diagnostic cardiac catheterization at [facility] which was reportedly unremarkable for any significant CAD. The patient's initial cardiac enzymes are negative. Her initial ECG is without acute ECG changes. She will continue to be followed. An attempt will be made to receive her [facility] records for continuity of care. Addt'l Comments The patient case has been discussed and reviewed with the patient as well as with Dr. Bacon of the [facility] emergency department staff and Dr. Hernandez of the [facility] hospital staff. This note was generated using a voice recognition system and there may be incorrect words, spelling or punctuation that were not noted when reviewing the office note prior to saving. HPI Consult Data Date of Consult: 04/18/22 HPI Narrative HPI Narrative: DAYANARA CH, is a 81 year old white female who presents for [facility] emergency department cardiovascular consultation for concerns of atrial fibrillation with rapid ventricular response superimposed upon a history of underlying PACs, possible ectopic atrial tachycardia, PVCs, and an episode of a nonsustained wide-complex tachycardia (5 beats-previous Holter monitor on 01-17-2020), hyperlipidemia, and hypertension previously evaluated by Dr. Rebel GOMEZ, and currently following with Dr. Vj Mullins of [facility] cardiology. She states that since her last outpatient cardiovascular visit with PATRICIA on 02-20-2021 she has been following with Dr. Mullins of [facility] cardiology. She states this is been for her episodes of dizziness and lightheadedness. She has undergone evaluation which she states included another outpatient ambulatory event monitor, carotid artery duplex study, and a diagnostic cardiac catheterization-all performed through the [facility] system. To the best of her knowledge these findings were unremarkable. She states that today she noted the onset of chest discomfort with radiation to her left upper extremity and her back. She did not become nauseated, short of breath, or diaphoretic. She did not sense palpitations or rapid heart rates. She states she did feel somewhat lightheaded. She did not lose consciousness. She presented to the EMS system and subsequently to the [facility] emergency department for further evaluation. She was found to be in atrial fibrillation with a rapid ventricular response. She has already been on medical management with metoprolol. She received additional IV metoprolol 5 mg x 3 in the emergency department with no significant improvement in her ventricular rate. She reports a concern of an allergy or side effect to diltiazem therapy (flushing, shortness of breath, dizziness, and irregular heart rate). Thus she is now starting additional medical therapy with IV amiodarone and attempt to slow her rate and/or regain sinus rhythm. She has undergone previous noninvasive valuation at [facility]. This is included a Holter monitor, a transthoracic echocardiogram, and an exercise tolerance test/nuclear imaging study. Those studies are noted below. Her [facility] studies are unavailable at this time for review. She has not been complaining of any obvious orthopnea or PND. She states she always has an element of peripheral pitting edema in the right ankle. She attributes this to a previous right ankle fracture and ORIF procedure. She also states that in July 2020 she had left hip replacement therapy. She states approximately 3 months ago she had her right knee replaced. She notes both surgeries went without apparent cardiovascular concerns. [facility] Medical History (Updated 04/18/22 @ 15:[address] Trinidad Hernandez MD) CKD (chronic kidney disease) stage 3, GFR 30-59 ml/min Essential hypertension Former tobacco use Generalized osteoarthrosis, unspecified site History of solitary pulmonary nodule Hyperlipidemia Lacunar infarction Nonsustained ventricular tachycardia PAF (paroxysmal atrial fibrillation) Home Medications multivitamin 1 tab PO DAILY 01/20/20 [History Last Taken 04/17/22] aspirin 81 mg tablet,delayed release (Adult Low Dose Aspirin) 81 mg PO DAILY 06/06/20 [History Last Taken 04/17/22] hydrochlorothiazide 25 mg tablet 25 mg PO DAILY 07/04/20 [History Last Taken 04/18/22] ezetimibe 10 mg tablet (Zetia) 10 mg PO DAILY CHOLESTEROL 04/18/22 [History Last Taken 04/18/22] lisinopril 40 mg tablet 40 mg PO DAILY PRN BP 04/18/22 [History Last Taken 04/18/22] metoprolol succinate 100 mg tablet,extended release 24 hr 100 mg PO DAILY HEART 04/18/22 [History Last Taken 04/18/22] Allergy/AdvReac Type Severity Reaction Status Date / Time amlodipine [From [facility]] AdvReac Intermediate swelling Verified 04/18/22 12:54 diltiazem AdvReac Intermediate Flushed, Verified 04/18/22 12:54 dizzy, h/a, sob, irreg HR Qtskvye-SYW-AfT Reductase AdvReac Other Verified 04/18/22 12:54 Inhibitor [Edqtruj-Fnm-Hds Reductase Inhibitor] Family History Mother Heart disease Hypertension Father Hypertension Kidney disease Surgical History (Updated 04/18/22 @ 15:[address] Trinidad Hernandez MD) History of ankle surgery History of arthroscopy of right knee History of carpal tunnel surgery of right wrist Social History (Updated 04/18/22 @ 15:[address] Trinidad Hernandez MD) household members: none Smoking Status: Former smoker how long ago did patient quit smokin years ago alcohol intake: never substance use type: does not use caffeine: Yes Type: coffee Number of servings: 2 ROS Constitutional Constitutional: Reports as per HPI Eyes Eyes: Reports as per HPI ENT HEENT: Reports as per HPI Cardiovascular Cardiovascular: Reports chest pain and lightheadedness Respiratory/Chest Respiratory/Chest: Reports as per HPI Gastrointestinal Gastrointestinal: Reports as per HPI Genitourinary Genitourinary: Reports as per HPI Musculoskeletal Musculoskeletal: Reports as per HPI Integumentary Integumentary: Reports as per HPI Neurologic Neurologic: Reports as per HPI Physical Exam Const alert, oriented x3, no apparent distress and healthy appearing Orientation / Consciousness: awake HEENT normocephalic, head/scalp atraumatic and hearing grossly normal bilaterally Eyes PERRL, EOMs intact bilaterally, conjunctivae normal and no scleral icterus Neck full ROM, supple and no JVD Carotids: normal carotid upstroke Resp normal respiratory effort and clear to auscultation bilaterally Cardio S1 normal heart sound and S2 normal heart sound Rate: tachycardic Rhythm: abnormal rhythm irregularly irregular GI normal to inspection, nondistended, normoactive bowel sounds Extremity General Extremity: edema bilateral lower extremity (Right greater than left) Details: mild Skin no rashes or lesions noted Psych mental status grossly normal Risk Stratification Risk Stratification Applicable: Yes Age >/= 65: Yes >/= 3 CAD Risk Factors (HTN, HLD, DM, family hx of CAD, or current smoker): Yes Aspirin Use in the Past 7 Days: Yes Severe Angina (>/= episodes in 24 hours): Yes EKG ST Changes >/= 0.5mm: No Positive Cardiac Marker: No HUDSON Risk Stratification Score: 4 HUDSON % Risk: 20% Risk Objective Data Vital Signs: Vital Signs Temp Pulse Resp BP Pulse Ox O2 Del Method 97.4 F L 132 H 21 H 146/111 H 98 Room Air 04/18/22 14:30 04/18/22 14:30 04/18/22 14:30 04/18/22 14:30 04/18/22 14:30 04/18/22 14:30 Oxygen Delivery Method Room Air Weight: 227 lb 11.8 oz Body Mass Index (BMI) 40.3 Lab / Micro Data Result Diagrams: 04/18/22 12:03 04/18/22 12:03 Labs: Laboratory Results - last 24 hr 04/18/22 12:03: WBC 8.6, RBC 4.29, Hgb 12.9, Hct 39.2, MCV 91.4, MCH 30.1, MCHC 32.9, RDW Std Deviation 40.9, RDW Coeff of Robyn 12.4, Plt Count 319, MPV 11.1, Immature Gran % (Auto) 0.200, Neut % (Auto) 67.7, Lymph % (Auto) 18.6 L, Rutherford % (Auto) 11.8 H, Eos % (Auto) 1.6, Baso % (Auto) 0.1, Absolute Neuts (auto) 5.8, Absolute Lymphs (auto) 1.60, Nucleated RBC % 0 04/18/22 12:03: Sodium 141, Potassium 4.2, Chloride 108 H, Carbon Dioxide 28.0, Anion Gap 5, BUN 20 H, Creatinine 0.86, Estim Creat Clear Calc 43.16, Est GFR (MDRD) Af Amer 81, Est GFR (MDRD) Non-Af 67, BUN/Creatinine Ratio 23.1 H, Glucose 102, Calcium 9.3, Magnesium 2.3, Troponin I High Sens 13, TSH 3.50 Cardiology Labs/Tests 04/18/22 12:03: WBC 8.6, RBC 4.29, Hgb 12.9, Hct 39.2, MCV 91.4, MCH 30.1, MCHC 32.9, Plt Count 319, MPV 11.1, Immature Gran % (Auto) 0.200, Neut % (Auto) 67.7, Lymph % (Auto) 18.6 L, Rutherford % (Auto) 11.8 H, Eos % (Auto) 1.6, Baso % (Auto) 0.1, Absolute Neuts (auto) 5.8, Nucleated RBC % 0 04/18/22 12:03: Sodium 141, Potassium 4.2, Chloride 108 H, Carbon Dioxide 28.0, Anion Gap 5, BUN 20 H, Creatinine 0.86, Est GFR (MDRD) Af Amer 81, Est GFR (MDRD) Non-Af 67, BUN/Creatinine Ratio 23.1 H, Glucose 102, Calcium 9.3, Magnesium 2.3 Rhythm: Atrial fibrillation EKG: Atrial fibrillation; nonspecific ST segment abnormality ECHO: 02-09-2020 Interpretation Summary The estimated ejection fraction is 60 %. Stage 2 diastolic dysfunction. Mild (1+) mitral valve insufficiency. Moderate diffuse aortic valve thickening. Stress Test: 01-16-2020 Stress Test Report Pharmacologic myocardial perfusion stress test. 79-year-old lady with a history of near syncope. Medications: Atorvastatin lisinopril hydrochlorothiazide. Stress protocol: Resting EKG demonstrates normal sinus rhythm with a rate of 65 bpm normal intervals are noted.? Resting blood pressure is 162/80 mmHg.? 0.4 mg of re gadenoson was infused per usual protocol followed Intravenous saline flush injection continuous EKG monitoring was performed.? The maximum heart rate attained was 90 bpm which was 63% of maximum predicted heart rate the maximum workload was 1 metabolic equivalent.? At rest there were no ST or T wave changes noted to suggest ischemia at peak infusion nonspecific ST-T wave changes were noted.? Occasional premature ventricular complexes present.? The resting blood pressure 162/80 with a final blood pressure 130/78. Myocardial perfusion protocol. 15.0 mCi of technetium 99m sestamibi was injected at rest.? 0.4 mg of regadenoson was infused per usual protocol.? At peak infusion 45.0 mCi of techn etium 99m sestamibi was injected stress images were obtained stress and rest images are reconstructed and compared in the short axis vertical long horizontal long axis.? Gated images were also obtained per Perfusion SPECT analysis: Review of the stress images demonstrate normal uptake of tracer noted in all areas of the myocardium.? The resting images similarly demonstrate normal uptake of tracer noted in all areas of the myocardium.? No reversibility is noted to suggest ischemia no previous infarct is noted. Gated SPECT analysis: The gated ejection fraction is 66%. Conclusion: Normal pharmacologic myocardial perfusion stress test. Preserved ejection fraction. Holter monitor: 01-16-2020 Sinus rhythm PACs/PVCs Ectopic atrial rhythm/tachycardia Nonsustained wide-complex tachycardia Radiography Diagnostic Testing: Radiology Impression Chest X-Ray 04/18/22 12:10 IMPRESSION: Poor inspiration with some bibasilar atelectasis. Electronically Signed: eDven Barton MD at 12:31 EDT ,
--- NOTE | 2022-04-18 15:21 | ED.RN ---
THIS RN AT BEDSIDE TO HANG AMIODARONE MAINTENANCE DRIP. PT CARDIAC RHYTHM OBSERVED, PT NOW IN SINUS RHYTHM WITH HEART RATE 59. RN CALLED FOR EKG. DR. HERNÁNDEZ AND DR. ROCHE INFORMED. PER BETTY HOLD AMIODARONE MAINTENANCE DRIP AT THIS TIME. SEE MAR. PER DR. HERNÁNDEZ VERBAL ORDER CONTINUE HEPARIN GTT AND BOLUS.
[2022-04-18] MEDS: Heparin Injection (Vial) 5,000 UNIT/ML VIAL 8000 UNIT IV (15:24)
[2022-04-18] MEDS: HEPARIN/D5w 25,000 UNITS 25,000 UNITS/250 ML IV.SOLN. 15 UNITS CONT INF (15:24)
--- NOTE | 2022-04-18 15:30 | EKG12_ITS ---
Test Reason : REPEAT-RHYTHM CHANGE Blood Pressure : / mmHG Vent. Rate : 057 BPM Atrial Rate : 057 BPM P-R Int : 176 ms QRS Dur : 084 ms QT Int : 426 ms P-R-T Axes : 067 023 046 degrees QTc Int : 414 ms Sinus bradycardia with marked sinus arrhythmia Otherwise normal ECG Confirmed by MANUELA BERNSTEIN, FRANCK ([id number]), book editor CLARISSE JOHNSON ([id number]) on 04/21/2022 10:13:30 AM Referred By: BETTY Confirmed By:FRANCK ROY MD
[2022-04-18 15:31] LABS: Prothrombin Time (Protime)PT. 12.8 SECONDS (11.7-14.9)
[2022-04-18 15:32] LABS: Partial Thromboplast Time 28.9 Seconds (24.1-36.2)
[2022-04-18 15:34] LABS: Troponin-I HS 29 pg/mL (3.0-54.0)
[2022-04-18] MEDS: Amiodarone 360 MG in Dextrose 5% Viaflo Bag 192.8 ML 16.7 MG CONT INF (15:39)
--- NOTE | 2022-04-18 16:29 | ECHOD_ITS ---
Reason For Study: PAF Procedure This was a 2D Doppler, Color Flow transthoracic echocardiogram. The exam was of adequate technical quality. Exam performed portable in patient room. Left Ventricle Normal LV size. Apical false tendon noted. Left ventricular systolic function is normal. The estimated ejection fraction is 65 %. Stage 2 diastolic dysfunction. No regional wall motion abnormalities noted. Right Ventricle Normal RV size. Normal systolic function. Atria The left atrium is mildly enlarged. The right atrium is mildly enlarged. No doppler evidence for ASD. Mitral Valve There is mild mitral annular calcification. Normal mitral valve. Mild-Moderate (1-2+) mitral valve insufficiency. Tricuspid Valve Normal tricuspid valve. Mild to moderate (1-2+) tricuspid valve insufficiency. Right ventricular systolic pressure estimated to be 37 mmHg. Aortic Valve Trisinus/trileaflet aortic valve. Mild diffuse aortic valve thickening. Mild focal aortic valve calcification. Aortic valve sclerosis/mild aortic valve stenosis. Pulmonic Valve The pulmonic valve is not well visualized. Mild (1+) pulmonic valve insufficiency. Great Vessels Normal sized aortic root. Pericardium/Pleural No pericardial effusion. MMode/2D Measurements & Calculations LVIDd: 4.9 cm IVSd: 1.2 cm LVOT diam: 2.1 cm LVIDs: 3.7 cm LVPWd: 1.2 cm LVOT area: 3.3 cm2 RVDd: 2.4 cm FS: 23.4 % Ao root diam: 3.5 cm LAV(MOD-bp): 82.0 ml LVAd ap4: 27.0 cm2 LAV(MOD-bp) Indexed: 39.9 ml/m2 LVLd ap4: 7.9 cm LAV(MOD-sp2): 84.7 ml EDV(MOD-sp4): 76.6 ml LAV(MOD-sp4): 67.6 ml EDV(sp4-el): 78.2 ml LVAs ap4: 14.5 cm2 LVLs ap4: 6.4 cm ESV(MOD-sp4): 29.2 ml ESV(sp4-el): 27.9 ml EF(MOD-sp4): 61.9 % EF(sp4-el): 64.3 % SV(MOD-sp4): 47.5 ml SV(sp4-el): 50.3 ml LA A4 area: 22.9 cm2 LA dimension(2D): 4.6 cm RA A4 area: 20.3 cm2 Time Measurements MV dec time: 0.17 sec Doppler Measurements & Calculations MV E max candido: 102.6 cm/sec Lat Peak E' Candido: 9.5 cm/sec Med Peak E' Candido: 6.9 cm/sec MV A max candido: 86.0 cm/sec E/E' lat: 10.8 E/E' med: 14.9 MV E/A: 1.2 MV V2 max: 101.4 cm/sec Ao V2 max: 175.3 cm/sec MV max P.1 mmHg MV dec slope: 591.5 cm/sec2 Ao max P.3 mmHg MV V2 mean: 58.3 cm/sec Ao V2 mean: 117.4 cm/sec MV mean P.6 mmHg Ao mean P.3 mmHg MV V2 VTI: 37.3 cm Ao V2 VTI: 43.8 cm MVA(VTI): 2.5 cm2 KAYY(I,D): 2.1 cm2 KAYY(V,D): 1.9 cm2 LV V1 max: 98.2 cm/sec SV(LVOT): 94.1 ml PA V2 max: 66.8 cm/sec LV V1 max P.9 mmHg LV V1 mean P.2 mmHg LV V1 mean: 69.8 cm/sec LV V1 VTI: 28.2 cm PI dec slope: 181.2 cm/sec2 TR max candido: 289.5 cm/sec TR max P.5 mmHg ECHO/Echo Complete Interpretation Summary Left ventricular systolic function is normal. The estimated ejection fraction is 65 %. Apical false tendon noted. The left atrium is mildly enlarged. The right atrium is mildly enlarged. Mild-Moderate (1-2+) mitral valve insufficiency. Mild to moderate (1-2+) tricuspid valve insufficiency. Aortic valve sclerosis/mild aortic valve stenosis. Mild (1+) pulmonic valve insufficiency. Right ventricular systolic pressure estimated to be 37 mmHg. Stage 2 diastolic dysfunction. Ordering Physician: Trinidad Hernandez Referring Physician: LAGO. MAHAN Performed By: Sharron San RCS
[2022-04-18] MEDS: 0.9% Normal Saline 1,000 ML 75 ML IV (17:25)
[2022-04-18 19:11] LABS: Troponin-I HS 99 pg/mL (3.0-54.0)
--- NOTE | 2022-04-18 19:13 | ED.RN ---
AT 1410, CORDARONE MAINTENANCE DOSE GIVEN PER DR. ROY VERBAL ORDER. MANUELA AWARE OF VS AND HEART RHYTHM AT TIME OF ADMINISTRATION.
[2022-04-18 22:02] LABS: Partial Thromboplast Time 244.3 Seconds (24.1-36.2)
[2022-04-19] VITALS (18 sets, daily range): BP systolic 104–167; BP diastolic 57–106; PULSE 50–65; RESP 13–20; TEMP 36.4–36.7; O2SAT 94–97
[2022-04-19] MEDS: Amiodarone 360 MG in Dextrose 5% Viaflo Bag 192.8 ML 16.7 MG CONT INF (02:08)
[2022-04-19] MEDS: 0.9% Normal Saline 1,000 ML 75 ML IV ×2 (05:01→18:12)
--- NOTE | 2022-04-19 06:39 | PN.HOSP_ITS ---
Subjective Subjective Patient overnight with conversion to sinus rhythm however given patient presentation per cardiology request amiodarone drip was run through to completion with 04/19/2022 transition to oral taper regimen. Patient denies any further anterior chest discomfort but still notes some discomfort to her bilateral shoulder blades ongoing unchanged, potentially worsened by certain movement and positional changes. She denies any palpitations, lightheadedness, dizziness. Discussed elevating records from [facility] for cardiology review to assure no further potential catheterization needs. Patient denies fevers, chills, nausea, emesis, abdominal pain, dyspnea. Objective Data Objective Data Vital Signs: Vital Signs Temp Pulse Resp BP Pulse Ox O2 Del Method 97.6 F L 50 L 18 149/94 H 96 Room Air 04/19/22 03:00 04/19/22 06:00 04/19/22 03:00 04/19/22 06:00 04/19/22 03:00 04/19/22 03:00 Oxygen Delivery Method Room Air Weight: 230 lb 2.601 oz Body Mass Index (BMI) 40.6 Intake & Output: Intake and Output for Last 24 Hours 04/17/22 04/18/22 04/19/22 23:59 23:59 23:59 Intake Total 564.75 / 581.45 986.90 / 986.90 Balance 564.75 / 581.45 986.90 / 986.90 Lab / Micro Data Result Diagrams: 04/19/22 06:20 04/19/22 06:20 Labs: Laboratory Results - last 24 hr 04/18/22 12:03: WBC 8.6, RBC 4.29, Hgb 12.9, Hct 39.2, MCV 91.4, MCH 30.1, MCHC 32.9, RDW Std Deviation 40.9, RDW Coeff of Robyn 12.4, Plt Count 319, MPV 11.1, Immature Gran % (Auto) 0.200, Neut % (Auto) 67.7, Lymph % (Auto) 18.6 L, [place] % (Auto) 11.8 H, Eos % (Auto) 1.6, Baso % (Auto) 0.1, Absolute Neuts (auto) 5.8, Absolute Lymphs (auto) 1.60, Nucleated RBC % 0 04/18/22 12:03: Sodium 141, Potassium 4.2, Chloride 108 H, Carbon Dioxide 28.0, Anion Gap 5, BUN 20 H, Creatinine 0.86, Estim Creat Clear Calc 43.16, Est GFR (MDRD) Af Amer 81, Est GFR (MDRD) Non-Af 67, BUN/Creatinine Ratio 23.1 H, Glucose 102, Calcium 9.3, Magnesium 2.3, Troponin I High Sens 13, TSH 3.50 04/18/22 15:05: Troponin I High Sens 29 04/18/22 15:05: PT 12.8, INR 1.0, APTT 28.9 04/18/22 18:30: Troponin I High Sens 99 H 04/18/22 21:30: APTT 244.3 H* Radiography Diagnostic Testing: Radiology Impression Chest X-Ray 04/18/22 12:10 IMPRESSION: Poor inspiration with some bibasilar atelectasis. Electronically Signed: Deven Barton MD at 12:31 EDT Reading Location ID and State: [facility] / [place] Tel , Service support , Physical Exam Narrative Physical Examination: General: Awake, alert, oriented x 3 and cooperative, seated upright in the PCU bed, no acute distress, remains in sinus rhythm Skin: Normal color, normal turgor, no icterus, no cyanosis. HEENT: AT/NC, EOMI, PERRLA, MMM. Lungs: Mildly diminished, greater bases, appropriate effort, no rales, ronchi or wheezing. Heart: Mildly bradycardic with regular rhythm; no gallop, rub audible. Abdomen: Soft, morbidly obese, NTTP, ND, mildly hyperactive BS. Extremities: No cyanosis, clubbing, or edema. Neurological: Patient awake, alert, oriented x 3, cognitive function intact; pupils equally reactive to light and accommodation, cranial nerves II-XII grossly normal, moving all 4 extremities, no focal deficits, strength improving, mildly global decrease. Psychiatric: Affect appears mildly fatigued otherwise normal, no acute evidence of depressive or anxiety feelings. Assessment & Plan Assessment/Plan (1) Atrial fibrillation with rapid ventricular response: PLAN: Plan The patient is an 81 y/o F w/ PMHx: Former tobacco use, CT prior evidence CVA, HTN, HLD, Morbid Obesity, CKD stage III unclear subtype, Hx NSVT/Atrial tachycardia who presents to the [facility] ED on 04/18/22 with history of onset left upper chest discomfort described as a pressure, 3-5 out of 10 in severity with its onset that radiated into the base of her neck and her shoulder area with blood pressure assessment at home noted to be 150s over 120s with a heart rate noted to be very quick and variable although she did not significantly feel this heart rate increase nor any palpitations associated and no specific dyspnea, nausea, emesis or diaphoresis but did have associated mild lightheadedness although this is difficult to see she has had this on and off with intermittent episodes for couple years. #1.? New onset, Paroxsymal atrial fibrillation with associated Chest pain with associated mild indeterminate troponin rise: EKG in ED w/ atrial fibrillation w/ RVR. Patient administered amiodarone bolus and transition to drip in ED. while in the ED patient did fortunately convert however per cardiology discretion continued to completion of amiodarone drip. Patient was transitioned to PCU, maintain on telemetry, serial cardiac enzymes initial 13 -> 29 -> 99 -> most recent 56, TSH 3.50, mag 2.3. 04/19/2022 following completion of IV amiodarone drip transitioned per cardiology to oral amiodarone with likely plan to taper per review of current list. Transition off heparin drip to Eliquis therapy. Had been awaiting records from [facility] but given the were not available as of yet was able to at least clean his sink search and discussed with cardiology noted brief catheterization op note 02/14/2022 by database reporting consultant Dr. Mullins with noted normal left main, large-caliber vessel left anterior descending with proximal vessel mild diffuse less than 30% luminal narrowing, circumflex large caliber nondominant vessel with large obtuse marginal branch which extends to the apical lateral wall with mild diffuse disease, right coronary artery large-caliber dominant vessel with mild diffuse disease with no collaterals with no interventions and recommended medical therapy at that time. Also most recent carotid ultrasound noted 04/16/2022 with right and left-sided 20 to 39% stenosis with patent and antegrade flow bilaterally with a left-sided subclavian artery plaque visualized but no evidence of hemodynamically significant stenosis. Unable to find any Holter monitor records thus [facility] records are still pending on this front. We will continue to monitor and likely discharge 04/20/2022 if oral amiodarone transition tolerated. #2. Normocytic anemia: Admission hemoglobin 12.9, baseline prior to this was also 12, repeat 04/19/2022 hemoglobin 10.6 MCV 93.8, will repeat hemoglobin in a.m. and if drops further we will obtain guaiac especially given new anticoagulation plan but was certainly hydrated since presentation. #2.? Chronic Kidney Disease Stage III, unclear subtype: Admission BUN/Cr 20/0.86, baseline renal function similar noted to be 0.8-0.9 primarily, 04/19/2022 BUN/creatinine 22/0.91. #4.? Prior CT Evidence CVA: 01/2021 CT head w/ noted remote left sided lacunar i nfarct, given history potentially having PAF with RVR episodes, transition back from heparin to Eliquis, maintain on hypertensive regimen with amiodarone as noted, noted statin intolerance and continued on Zetia. #5.? Hypertension: Continue home regimen including hydrochlorothiazide, lisinopril, transitioning off IV amiodarone to oral taper as noted. #6.? Hyperlipidemia: We will continue patient home Zetia regimen, FLP obtained.? Noted statin intolerance. #7.? Morbid Obesity: Weight loss and lifestyle changes encouraged. #8.? Former tobacco use: Encourage continued tobacco cessation. #9.? DVT Prophylaxis: SCDs, heparin drip per cardiology preference initially, transition 04/19/2022 to oral Eliquis #10.? CODE status: Full Code status. Charges/Coding Visit Charges Inpatient E&M: 69185 Subs Hosp L2
[2022-04-19 06:42] LABS: Absolute Lymphocyte Count 1.52 X10^3/uL (0.83-4.51); Absolute Neutrophil Count 3.6 X10^3/uL (2.0-7.7); Basophil# 0.03 X10^3/uL; Basophil% 0.5 % (0-1); Eosinophils% 3.3 % (0-5); Hematocrit 33.3 % (37-47); Hemoglobin 10.6 g/dL (12.0-15.0); Lymphocyte # 1.52 X10^3/ul (0.83-4.51); Lymphocyte % 24.8 % (19-41); Mean Corp Hgb Conc 31.8 g/dL (32-36); Mean Corpuscular Hgb 29.9 pg (27.0-32.0); Mean Corpuscular Volume 93.8 fL (81-99); Mean Platelet Vol. 10.7 fl (6.2-12.0); Monocyte# 0.77 X10^3/uL; Monocyte% 12.6 % (0-10); NRBC Flagged by Analyzer 0 % (0-5); Neutrophil % 58.6 % (47-70); Platelet Count 250 K/mm3 (150-450); RBC Distribution Width CV 12.5 % (11.6-14.6); RBC Distribution Width SD 43.4 fl (35.1-43.9); Red Blood Count 3.55 M/mm3 (4.2-5.4); White Blood Count 6.1 K/mm3 (4.4-11.0)
[2022-04-19 06:58] LABS: Partial Thromboplast Time 125.5 Seconds (24.1-36.2)
[2022-04-19 07:16] LABS: ALB/GLOB Ratio 0.9 RATIO (0.9-2.4); AST(SGOT) 20 U/L (15-37); Alanine Aminotransfer ALT/SGPT 17 U/L (13-56); Albumin, Serum 3.1 g/dL (3.2-5.0); Alkaline Phosphatase 50 U/L (45-117); Anion Gap 4 (5-15); BUN 22 mg/dL (7-18); BUN/Creat Ratio 24.1 RATIO (10-20); Calcium,Total 8.5 mg/dL (8.5-10.1); Chloride 110 mmol/L (98-107); Cholesterol 190 mg/dL (200); Creatinine, Serum 0.91 mg/dL (0.55-1.02); EST Glomerular Filtration Rate 63 mL/min (>60); Est Glom Filt Rate - Afr Amer 76 mL/min (>60); Estimated Creatinine Clearance 40.79 ml/min; Globulin 3.4 g/dL (2.2-4.2); Glucose 98 mg/dL (74-106); High Density Lipoprotein 58 mg/dL; Potassium 3.8 mmol/L (3.5-5.1); Protein, Total 6.5 g/dL (6.4-8.2); Sodium Level 141 mmol/L (136-145); Triglycerides 121 mg/dL; Very Low Density Lipoprotein 24 mg/dL (5-40)
[2022-04-19] MEDS: 0.9% Saline Lock 10 ML Syringe IV (10:41)
[2022-04-19] MEDS: Lisinopril 40 MG Tablet PO (10:42)
[2022-04-19] MEDS: Aspirin E.C. 81 MG Tablet PO (10:43)
[2022-04-19] MEDS: Ezetimibe 10 MG Tablet PO (10:43)
[2022-04-19] MEDS: hydroCHLOROthiazide 25 MG Tablet PO (10:43)
--- NOTE | 2022-04-19 10:43 | PCM.PN.CARD ---
Subjective Subjective The patient states she feels better overall. She is not complaining of any acute symptoms at this time. Objective Data Vital Signs: Vital Signs Temp Pulse Resp BP Pulse Ox O2 Del Method 97.8 F 52 L 16 148/57 H 95 Room Air 04/19/22 09:00 04/19/22 09:00 04/19/22 09:00 04/19/22 09:00 04/19/22 09:00 04/19/22 09:00 Oxygen Delivery Method Room Air Weight: 230 lb 2.601 oz Body Mass Index (BMI) 40.6 Intake & Output: Intake and Output for Last 24 Hours 04/17/22 04/18/22 04/19/22 23:59 23:59 23:59 Intake Total 564.75 / 581.45 1121.00 / 1121.00 Balance 564.75 / 581.45 1121.00 / 1121.00 Lab / Micro Data Result Diagrams: 04/19/22 06:20 04/19/22 06:20 Labs: Laboratory Results - last 24 hr 04/18/22 12:03: WBC 8.6, RBC 4.29, Hgb 12.9, Hct 39.2, MCV 91.4, MCH 30.1, MCHC 32.9, RDW Std Deviation 40.9, RDW Coeff of Robyn 12.4, Plt Count 319, MPV 11.1, Immature Gran % (Auto) 0.200, Neut % (Auto) 67.7, Lymph % (Auto) 18.6 L, [place] % (Auto) 11.8 H, Eos % (Auto) 1.6, Baso % (Auto) 0.1, Absolute Neuts (auto) 5.8, Absolute Lymphs (auto) 1.60, Nucleated RBC % 0 04/18/22 12:03: Sodium 141, Potassium 4.2, Chloride 108 H, Carbon Dioxide 28.0, Anion Gap 5, BUN 20 H, Creatinine 0.86, Estim Creat Clear Calc 43.16, Est GFR (MDRD) Af Amer 81, Est GFR (MDRD) Non-Af 67, BUN/Creatinine Ratio 23.1 H, Glucose 102, Calcium 9.3, Magnesium 2.3, Troponin I High Sens 13, TSH 3.50 04/18/22 15:05: Troponin I High Sens 29 04/18/22 15:05: PT 12.8, INR 1.0, APTT 28.9 04/18/22 18:30: Troponin I High Sens 99 H 04/18/22 21:30: APTT 244.3 H* 04/19/22 06:20: WBC 6.1, RBC 3.55 L, Hgb 10.6 L, Hct 33.3 L, MCV 93.8, MCH 29.9, MCHC 31.8 L, RDW Std Deviation 43.4, RDW Coeff of Robyn 12.5, Plt Count 250, MPV 10.7, Immature Gran % (Auto) 0.200, Neut % (Auto) 58.6, Lymph % (Auto) 24.8, [place] % (Auto) 12.6 H, Eos % (Auto) 3.3, Baso % (Auto) 0.5, Absolute Neuts (auto) 3.6, Absolute Lymphs (auto) 1.52, Nucleated RBC % 0 04/19/22 06:20: Sodium 141, Potassium 3.8, Chloride 110 H, Carbon Dioxide 27.0, Anion Gap 4 L, BUN 22 H, Creatinine 0.91, Estim Creat Clear Calc 40.79, Est GFR (MDRD) Af Amer 76, Est GFR (MDRD) Non-Af 63, BUN/Creatinine Ratio 24.1 H, Glucose 98, Calcium 8.5, Total Bilirubin 0.40, AST 20, ALT 17, Alkaline Phosphatase 50, Total Protein 6.5, Albumin 3.1 L, Globulin 3.4, Albumin/Globulin Ratio 0.9, Triglycerides 121, Cholesterol 190, LDL Cholesterol 108, VLDL Cholesterol 24, HDL Cholesterol 58 04/19/22 06:20: APTT 125.5 H* Cardiology Labs/Tests 04/18/22 12:03: WBC 8.6, RBC 4.29, Hgb 12.9, Hct 39.2, MCV 91.4, MCH 30.1, MCHC 32.9, Plt Count 319, MPV 11.1, Immature Gran % (Auto) 0.200, Neut % (Auto) 67.7, Lymph % (Auto) 18.6 L, [place] % (Auto) 11.8 H, Eos % (Auto) 1.6, Baso % (Auto) 0.1, Absolute Neuts (auto) 5.8, Nucleated RBC % 0 04/18/22 12:03: Sodium 141, Potassium 4.2, Chloride 108 H, Carbon Dioxide 28.0, Anion Gap 5, BUN 20 H, Creatinine 0.86, Est GFR (MDRD) Af Amer 81, Est GFR (MDRD) Non-Af 67, BUN/Creatinine Ratio 23.1 H, Glucose 102, Calcium 9.3, Magnesium 2.3 04/18/22 15:05: PT 12.8, INR 1.0, APTT 28.9 04/18/22 21:30: APTT 244.3 H* 04/19/22 06:20: WBC 6.1, RBC 3.55 L, Hgb 10.6 L, Hct 33.3 L, MCV 93.8, MCH 29.9, MCHC 31.8 L, Plt Count 250, MPV 10.7, Immature Gran % (Auto) 0.200, Neut % (Auto) 58.6, Lymph % (Auto) 24.8, [place] % (Auto) 12.6 H, Eos % (Auto) 3.3, Baso % (Auto) 0.5, Absolute Neuts (auto) 3.6, Nucleated RBC % 0 04/19/22 06:20: Sodium 141, Potassium 3.8, Chloride 110 H, Carbon Dioxide 27.0, Anion Gap 4 L, BUN 22 H, Creatinine 0.91, Est GFR (MDRD) Af Amer 76, Est GFR (MDRD) Non-Af 63, BUN/Creatinine Ratio 24.1 H, Glucose 98, Calcium 8.5, Total Bilirubin 0.40, Triglycerides 121, Cholesterol 190, LDL Cholesterol 108, VLDL Cholesterol 24, HDL Cholesterol 58 04/19/22 06:20: APTT 125.5 H* Rhythm: Sinus rhythm EKG: Sinus rhythm; no acute ECG changes ECHO: Pending Radiography Diagnostic Testing: Radiology Impression Chest X-Ray 04/18/22 12:10 IMPRESSION: Poor inspiration with some bibasilar atelectasis. Electronically Signed: Deven Barton MD at 12:31 EDT , Physical Exam Const alert, oriented x3, no apparent distress and healthy appearing Orientation / Consciousness: awake HEENT normocephalic, head/scalp atraumatic and hearing grossly normal bilaterally Eyes PERRL, EOMs intact bilaterally, conjunctivae normal and no scleral icterus Neck full ROM, supple and no JVD Carotids: normal carotid upstroke Resp normal respiratory effort and clear to auscultation bilaterally Cardio regular rate, regular rhythm, S1 normal heart sound and S2 normal heart sound GI normal to inspection, nondistended, normoactive bowel sounds Extremity General Extremity: edema bilateral lower extremity (Right greater than left) Details: mild Skin no rashes or lesions noted Psych mental status grossly normal Assessment & Plan Assessment/Plan (1) Atrial fibrillation with rapid ventricular response: PLAN: The patient has been found to have atrial fibrillation with rapid ventricular response. She has now converted to sinus rhythm. This may be secondary to a combination of her age and history of hypertension. It is unclear at this time whether this is the reason that she has episodes of dizziness or lightheadedness. At the moment she is continuing to be monitored. Her cardiac enzymes have demonstrated an increase. Her troponin I level will be reassessed. Her initial ECG and repeat ECG demonstrated atrial fibrillation with RVR with no acute electrocardiographic changes. Her follow-up ECG demonstrates sinus rhythm with no acute ECG changes. Her previous [facility] noninvasive studies were reviewed. At the moment she will continue rate control therapy with her beta-bety. Her IV amiodarone will be altered to oral amiodarone therapy. Her IV heparin will be altered to oral anticoagulant therapy. An echocardiogram is pending to reassess her atrial size and ventricular size, wall motion, and systolic function. A request has been made to retrieve her [facility] medical records for continuity of care. (2) Abnormal cardiac enzyme level: PLAN: The patient's third high-sensitivity troponin I level did increase. This will be rechecked. Her ECG in sinus rhythm demonstrates no acute ECG changes. This may be a type II finding secondary to her atrial fibrillation with RVR especially noting her report that her relatively recent cardiac catheterization performed at [facility] was unremarkable for any obvious CAD. (3) Chest pain: PLAN: The patient did describe chest discomfort. This may be secondary to her rapid ventricular response. Based upon the patient's report she has been evaluated less than a year ago with a diagnostic cardiac catheterization at [facility] which was reportedly unremarkable for any significant CAD. The patient's cardiac enzymes did increase. They will be checked. This may be secondary to her atrial fibrillation with RVR as opposed to a primary type I acute coronary syndrome event specially by her report that her previous cardiac catheterization was unremarkable with respect to any findings of CAD. She will continue to be followed. An attempt will be made to receive her [facility] records for continuity of care. (4) Hyperlipidemia: PLAN: The patient has a history of hyperlipidemia. She apparently is intolerant to statins. She has been on medical therapy with Zetia. (5) Essential hypertension: PLAN: The patient has a history of hypertension. It is noted her blood pressure was reported as elevated at home as well as in the emergency department. This may be a contributing factor to her atrial fibrillation. She will need to have her blood pressure monitored. Her medications may need to be adjusted to help bring her pressure under better control. Addt'l Comments Overall, at the present time, the patient will be monitored. An attempt will be made to alter her IV medications to oral medications. An echocardiogram is pending. A request has been made to retrieve her [facility] records for continuity of care. Hopefully, if the patient remains symptomatically and hemodynamically stable and tolerating her medications and if there does not appear to be a definitive reason to proceed with additional noninvasive or invasive cardiovascular studies then she will be able to be released home in the near future to continue to follow with her F director of product development-Dr. Mullins. This note was generated using a voice recognition system and there may be incorrect words, spelling or punctuation that were not noted when reviewing the office note prior to saving. Procedure Criteria Type of Procedure Procedure Type: Elective Elective Risks - COVID COVID Risk Discussion: The surgeon/proceduralist and patient have discussed in detail the risk of exposure to and/or potential harm posed by the COVID-19 virus with having a surgery/procedure at this time versus the risk of delaying the surgery/procedure. It is not possible to know either the risk of delaying the surgery or procedure or chance of getting an infection with perfect accuracy, but a joint decision was made between the patient and the surgeon/proceduralist to proceed at this time with the scheduled surgery/procedure as indicated on the consent form.
[2022-04-19 11:11] LABS: Troponin-I HS 56 pg/mL (3.0-54.0)
[2022-04-19] MEDS: Amiodarone 200 MG Tablet PO ×2 (11:16→21:02)
--- NOTE | 2022-04-19 19:08 | CASEMGMT ---
Face to Face with patient for initial transition planning/care coordination assessment. KYLEE KRUGER introduced self and role at [facility], voices understanding. Pt alert and agreeable to discussion with pt's daughter at bedside. Care providers, pharmacy, and demographics verified. PCP: Raad Specialists: Harpreet (cardiology), Fran (orthopedics), Pablito Arciniega (dermatology/skin CA) Preferred Pharmacy: [facility] Insurance: [employer] [facility] Prescription Benefit: Yes LNOK: DaughterKaitlynn Living Arrangements: Pt lives daughter, son-in-law and grandchildren in a two story home. Pt stays on the first floor. There are two steps to enter. Pt reports to be independent with ADLs and household tasks but family able to assist as needed. Transportation: Pt drives and still works for a local [employer]. DME: [employer], raised toilet seat, cane, lift chair, hand held shower, walker, rollator (doesn't use), and has a Cpap on order but has not received yet. SNF/HH: pt has had a previous stay at [facility] after her hip surgery and has not used Home health skilled services. Plan: Pt plans to return home with the support of her family. Discussed possible anticoagulation at discharge. Pt states she wants to be on the cheapest one. Discount card will be provided for Eliquis as this is what is currently ordered. Will continue to follow and assist needs are identified. Sarah Porras RN CM
--- NOTE | 2022-04-19 19:58 | CASEMGMT ---
Attempted to provide pt with Eliquis free 30 day trial card. Pt states that medication is too expensive and she does not want to start on one and have to change. Encouraged pt to discuss medication choice with Dr. Mccarthy. Free card placed on the front of pt's chart in case this is needed. Sarah Porras RN CM
[2022-04-19] MEDS: APIXABAN 5 MG TABLET PO (21:02)
[2022-04-20] VITALS (7 sets, daily range): BP systolic 122–160; BP diastolic 53–75; PULSE 54–68; RESP 18; TEMP 35.6–36.4; O2SAT 94–98
[2022-04-20] MEDS: Amiodarone 200 MG Tablet PO (05:15)
[2022-04-20] MEDS: 0.9% Normal Saline 1,000 ML 75 ML IV (05:15)
--- NOTE | 2022-04-20 06:27 | PN.HOSP_ITS ---
Objective Data Objective Data Vital Signs: Vital Signs Temp Pulse Resp BP Pulse Ox O2 Del Method 96.0 F L 64 18 160/75 H 94 Room Air 04/20/22 03:00 04/20/22 03:09 04/20/22 03:00 04/20/22 03:00 04/20/22 03:00 04/20/22 03:00 Oxygen Delivery Method Room Air Weight: 230 lb 2.601 oz Body Mass Index (BMI) 40.6 Intake & Output: Intake and Output for Last 24 Hours 04/18/22 04/19/22 04/20/22 23:59 23:59 23:59 Intake Total 564.75 / 581.45 2878.58 / 2878.58 1068.75 / 1068.75 Balance 564.75 / 581.45 2878.58 / 2878.58 1068.75 / 1068.75 Lab / Micro Data Result Diagrams: 04/19/22 06:20 04/19/22 06:20 Labs: Laboratory Results - last 24 hr 04/19/22 06:20: WBC 6.1, RBC 3.55 L, Hgb 10.6 L, Hct 33.3 L, MCV 93.8, MCH 29.9, MCHC 31.8 L, RDW Std Deviation 43.4, RDW Coeff of Robyn 12.5, Plt Count 250, MPV 10.7, Immature Gran % (Auto) 0.200, Neut % (Auto) 58.6, Lymph % (Auto) 24.8, [place] % (Auto) 12.6 H, Eos % (Auto) 3.3, Baso % (Auto) 0.5, Absolute Neuts (auto) 3.6, Absolute Lymphs (auto) 1.52, Nucleated RBC % 0 04/19/22 06:20: Sodium 141, Potassium 3.8, Chloride 110 H, Carbon Dioxide 27.0, Anion Gap 4 L, BUN 22 H, Creatinine 0.91, Estim Creat Clear Calc 40.79, Est GFR (MDRD) Af Amer 76, Est GFR (MDRD) Non-Af 63, BUN/Creatinine Ratio 24.1 H, Glucose 98, Calcium 8.5, Total Bilirubin 0.40, AST 20, ALT 17, Alkaline Phosphatase 50, Total Protein 6.5, Albumin 3.1 L, Globulin 3.4, Albumin/Globulin Ratio 0.9, Triglycerides 121, Cholesterol 190, LDL Cholesterol 108, VLDL Myrna sterol 24, HDL Cholesterol 58 04/19/22 06:20: APTT 125.5 H* 04/19/22 06:20: Troponin I High Sens 56 H Radiography Diagnostic Testing: Radiology Impression Echocardiogram 04/18/22 16:29 Interpretation Summary Left ventricular systolic function is normal. The estimated ejection fraction is 65 %. Apical false tendon noted. The left atrium is mildly enlarged. The right atrium is mildly enlarged. Mild-Moderate (1-2+) mitral valve insufficiency. Mild to moderate (1-2+) tricuspid valve insufficiency. Aortic valve sclerosis/mild aortic valve stenosis. Mild (1+) pulmonic valve insufficiency. Right ventricular systolic pressure estimated to be 37 mmHg. Stage 2 diastolic dysfunction. Ordering Physician: Trinidad Hernandez Referring Physician: LAGO. MAHAN Performed By: Sharron San RCS
[2022-04-20 06:51] LABS: Absolute Lymphocyte Count 1.54 X10^3/uL (0.83-4.51); Absolute Neutrophil Count 4.1 X10^3/uL (2.0-7.7); Basophil# 0.04 X10^3/uL; Basophil% 0.6 % (0-1); Eosinophil# 0.14 X10^3/uL; Eosinophils% 2.1 % (0-5); Hematocrit 35.8 % (37-47); Hemoglobin 11.4 g/dL (12.0-15.0); Lymphocyte # 1.54 X10^3/ul (0.83-4.51); Lymphocyte % 23.3 % (19-41); Mean Corp Hgb Conc 31.8 g/dL (32-36); Mean Corpuscular Hgb 29.8 pg (27.0-32.0); Mean Corpuscular Volume 93.5 fL (81-99); Mean Platelet Vol. 10.9 fl (6.2-12.0); Monocyte# 0.78 X10^3/uL; Monocyte% 11.8 % (0-10); NRBC Flagged by Analyzer 0 % (0-5); Neutrophil % 61.9 % (47-70); Platelet Count 244 K/mm3 (150-450); RBC Distribution Width CV 12.4 % (11.6-14.6); RBC Distribution Width SD 42.5 fl (35.1-43.9); Red Blood Count 3.83 M/mm3 (4.2-5.4); White Blood Count 6.6 K/mm3 (4.4-11.0)
[2022-04-20 07:14] LABS: ALB/GLOB Ratio 0.9 RATIO (0.9-2.4); AST(SGOT) 18 U/L (15-37); Alanine Aminotransfer ALT/SGPT 14 U/L (13-56); Albumin, Serum 3.2 g/dL (3.2-5.0); Alkaline Phosphatase 52 U/L (45-117); Anion Gap 5 (5-15); BUN 15 mg/dL (7-18); Calcium,Total 8.5 mg/dL (8.5-10.1); Chloride 110 mmol/L (98-107); Creatinine, Serum 0.84 mg/dL (0.55-1.02); EST Glomerular Filtration Rate 70 mL/min (>60); Est Glom Filt Rate - Afr Amer 84 mL/min (>60); Estimated Creatinine Clearance 44.19 ml/min; Globulin 3.4 g/dL (2.2-4.2); Glucose 94 mg/dL (74-106); Potassium 3.9 mmol/L (3.5-5.1); Protein, Total 6.6 g/dL (6.4-8.2); Sodium Level 141 mmol/L (136-145)
[2022-04-20] MEDS: Ezetimibe 10 MG Tablet PO (09:51)
[2022-04-20] MEDS: Aspirin E.C. 81 MG Tablet PO (09:51)
[2022-04-20] MEDS: APIXABAN 5 MG TABLET PO (09:51)
[2022-04-20] MEDS: hydroCHLOROthiazide 25 MG Tablet PO (09:52)
--- NOTE | 2022-04-20 10:26 | PCM.DC ---
Discharge Instructions Diet Discharge Diet: Low fat / Low cholesterol Activity Discharge Activity: Return to Normal Activity May resume sexual activity in: No Restrictions Dressing / Incision Call your doctor if you observe: Fever of 101 or Higher, Numbness or Tingling, Shortness of breath, Dizziness, Chest pain, Increased palpitations (irregular heartbeat) and Uncontrolled pain Follow Up Care Test Results: Test results from this visit will be discussed in further detail at your follow-up appointment, if applicable. Discharge Plan Admission Admit Date/Time: 04/18/22 14:36 Primary Reason for Your Visit: PAF with RVR Attending Provider: Trinidad Hernandez Primary Care Provider: Norm Shankar Consulting Providers: Lenny Mccarthy Instructions Patient Instructions: What Is Atrial Flutter/Atrial Fibrillation?, ED AFIB, AFib Preventing Stroke Discharge Orders/Prescriptions Prescriptions: New Eliquis 5 mg Tablet 5 mg PO BID 30 Days Qty: 60 0RF amiodarone 200 mg Tablet 200 mg PO DAILY 30 Days Qty: 30 0RF Rx Instructions: Complete 04/20/22 TID regimen->transition 04/21/22 to BID x 1 week then transition to daily. amiodarone 200 mg Tablet 200 mg PO BID 7 Days Qty: 14 0RF Rx Instructions: Once 04/20/22 TID regimen complete transition to BID x 1 week then daily. amiodarone 200 mg Tablet 200 mg PO TID 1 Days Qty: 3 0RF Rx Instructions: Complete 04/20/22 TID regimen then transition to BID x 1 week then daily. Continued multivitamin Tablet 1 tab PO DAILY aspirin [Adult Low Dose Aspirin] 81 mg tablet,delayed release (DR/EC) 81 mg PO DAILY hydrochlorothiazide 25 mg tablet 25 mg PO DAILY lisinopril 40 mg tablet 40 mg PO DAILY PRN (Reason: BP) ezetimibe [Zetia] 10 mg tablet 10 mg PO DAILY Discontinued metoprolol succinate 100 mg tablet extended release 24 hr 100 mg PO DAILY Rx Instructions: TAKE 1 TABLET EVERY DAY Referrals / Follow Up: Vj Mullins MD [Non-Staff] - (Please contact your primary wetlands technician Thursday and review recent admission and plan follow-up visit at their recommendation if you prefer.) Lenny Mccarthy MD [Med Staff - Active Staff] - (Follow-up as discussed with Dr. Moodispaw in the office.) Norm Shankar MD [Primary Care Provider] - (Follow-up with your PCP to review admission in 3-5 days.) Disposition Disposition (needs filled in before D/C Order can be placed): Home, Self Care
--- NOTE | 2022-04-20 11:36 | PCM.PN.CARD ---
Subjective Subjective The patient states she feels well at this time. Objective Data Vital Signs: Vital Signs Temp Pulse Resp BP Pulse Ox O2 Del Method 97.5 F L 62 18 122/53 H 98 Room Air 04/20/22 10:49 04/20/22 11:00 04/20/22 10:49 04/20/22 10:49 04/20/22 10:49 04/20/22 10:49 Oxygen Delivery Method Room Air Weight: 230 lb 6.129 oz Body Mass Index (BMI) 40.6 Intake & Output: Intake and Output for Last 24 Hours 04/18/22 04/19/22 04/20/22 23:59 23:59 23:59 Intake Total 564.75 / 581.45 2878.58 / 2878.58 1068.75 / 1068.75 Balance 564.75 / 581.45 2878.58 / 2878.58 1068.75 / 1068.75 Lab / Micro Data Result Diagrams: 04/20/22 05:35 04/20/22 05:35 Labs: Laboratory Results - last 24 hr 04/20/22 05:35: WBC 6.6, RBC 3.83 L, Hgb 11.4 L, Hct 35.8 L, MCV 93.5, MCH 29.8, MCHC 31.8 L, RDW Std Deviation 42.5, RDW Coeff of Robyn 12.4, Plt Count 244, MPV 10.9, Immature Gran % (Auto) 0.300, Neut % (Auto) 61.9, Lymph % (Auto) 23.3, Ralls % (Auto) 11.8 H, Eos % (Auto) 2.1, Baso % (Auto) 0.6, Absolute Neuts (auto) 4.1, Absolute Lymphs (auto) 1.54, Nucleated RBC % 0 04/20/22 05:35: Sodium 141, Potassium 3.9, Chloride 110 H, Carbon Dioxide 26.0, Anion Gap 5, BUN 15, Creatinine 0.84, Estim Creat Clear Calc 44.19, Est GFR (MDRD) Af Amer 84, Est GFR (MDRD) Non-Af 70, BUN/Creatinine Ratio 18.0, Glucose 94, Calcium 8.5, Total Bilirubin 0.40, AST 18, ALT 14, Alkaline Phosphatase 52, Total Protein 6.6, Albumin 3.2, Globulin 3.4, Albumin/Globulin Ratio 0.9 Cardiology Labs/Tests 04/20/22 05:35: WBC 6.6, RBC 3.83 L, Hgb 11.4 L, Hct 35.8 L, MCV 93.5, MCH 29.8, MCHC 31.8 L, Plt Count 244, MPV 10.9, Immature Gran % (Auto) 0.300, Neut % (Auto) 61.9, Lymph % (Auto) 23.3, Ralls % (Auto) 11.8 H, Eos % (Auto) 2.1, Baso % (Auto) 0.6, Absolute Neuts (auto) 4.1, Nucleated RBC % 0 04/20/22 05:35: Sodium 141, Potassium 3.9, Chloride 110 H, Carbon Dioxide 26.0, Anion Gap 5, BUN 15, Creatinine 0.84, Est GFR (MDRD) Af Amer 84, Est GFR (MDRD) Non-Af 70, BUN/Creatinine Ratio 18.0, Glucose 94, Calcium 8.5, Total Bilirubin 0.40 Rhythm: Sinus rhythm Cardiac catheterization: 02-14-2022: [facility]: Coronary artery disease isolated; right coronary dominant system; normal left ventricular end-diastolic pressure; recommendation for continued medical therapy and risk factor modification Radiography Diagnostic Testing: Radiology Impression Echocardiogram 04/18/22 16:29 Interpretation Summary Left ventricular systolic function is normal. The estimated ejection fraction is 65 %. Apical false tendon noted. The left atrium is mildly enlarged. The right atrium is mildly enlarged. Mild-Moderate (1-2+) mitral valve insufficiency. Mild to moderate (1-2+) tricuspid valve insufficiency. Aortic valve sclerosis/mild aortic valve stenosis. Mild (1+) pulmonic valve insufficiency. Right ventricular systolic pressure estimated to be 37 mmHg. Stage 2 diastolic dysfunction. Ordering Physician: Trinidad Hernandez Referring Physician: LAGO. MAHAN Performed By: Sharron San RCS Physical Exam Const alert, oriented x3, no apparent distress and healthy appearing Orientation / Consciousness: awake HEENT normocephalic, head/scalp atraumatic and hearing grossly normal bilaterally Eyes PERRL, EOMs intact bilaterally, conjunctivae normal and no scleral icterus Neck full ROM, supple and no JVD Carotids: normal carotid upstroke Resp normal respiratory effort and clear to auscultation bilaterally Cardio regular rate, regular rhythm, S1 normal heart sound and S2 normal heart sound GI normal to inspection, nondistended, normoactive bowel sounds Extremity General Extremity: edema bilateral lower extremity (Right greater than left) Details: mild Skin no rashes or lesions noted Psych mental status grossly normal Assessment & Plan Assessment/Plan (1) Atrial fibrillation with rapid ventricular response: PLAN: The patient has been found to have atrial fibrillation with rapid ventricular response. She has now converted to sinus rhythm. This may be secondary to a combination of her age and history of hypertension. It is unclear at this time whether this is the reason that she has episodes of dizziness or lightheadedness. At the moment she is continuing to be monitored. Her cardiac enzymes have demonstrated an increase. Her troponin I level subsequently decreased. Her initial ECG and repeat ECG demonstrated atrial fibrillation with RVR with no acute electrocardiographic changes. Her follow-up ECG demonstrates sinus rhythm with no acute ECG changes. Her previous [facility] noninvasive studies were reviewed. Her repeat transthoracic echocardiogram was reviewed. Her recent [facility] cardiac catheterization report was reviewed. At the moment she will continue rate control therapy with her beta-bety. She has been converted to oral amiodarone therapy. She has been converted to oral anticoagulant therapy. (2) Abnormal cardiac enzyme level: PLAN: The patient's third high-sensitivity troponin I level did increase and then decrease. Her ECG in sinus rhythm demonstrates no acute ECG changes. Based upon review of her clinical course and objective studies this appears to be secondary to a type II event related to her atrial fibrillation with RVR. (3) Chest pain: PLAN: The patient did describe chest discomfort. This may be secondary to her rapid ventricular response. Based upon review of her recent [facility] cardiac catheterization it appears her symptoms may be related to her atrial fibrillation with rapid ventricular response as she does not have any angiographically significant appearing CAD. She does appear to be symptomatically improved as she returned to sinus rhythm. She will continue medical therapy. (4) Hyperlipidemia: PLAN: The patient has a history of hyperlipidemia. She apparently is intolerant to statins. She has been on medical therapy with Zetia. (5) Essential hypertension: PLAN: The patient has a history of hypertension. It is noted her blood pressure was reported as elevated at home as well as in the emergency department. This may be a contributing factor to her atrial fibrillation. She will need to have her blood pressure monitored. Her medications may need to be adjusted to help bring her pressure under better control. Addt'l Comments At the present time she will continue medical management. She is going to continue her outpatient follow-up with Dr. Mullins from [facility] cardiology. The patient's case was discussed and reviewed with patient and Dr. Hernandez. This note was generated using a voice recognition system and there may be incorrect words, spelling or punctuation that were not noted when reviewing the office note prior to saving.
--- NOTE | 2022-04-20 13:23 | PCM.DC.SUM ---
Providers Date of Admission: 04/18/22 Date of Discharge: 04/20/22 Primary Care Physician: Dr. Norm Shankar MD Consultations 04/18/22 16:29 Consult: Cardiology Routine Consulting Provider: Lenny Mccarthy Reason for Consult: PAF with RVR EMERGENT Consult: No MD Notified: Yes Date Notified: 04/18/22 Time Notified: 14:40 Method of Notification: ED Physician Initiated Reason For Visit: PAF WITH RVR Diagnosis Discharge Diagnosis (1) Atrial fibrillation with rapid ventricular response: Status: Acute Code(s): I48.91 - Unspecified atrial fibrillation (2) Abnormal cardiac enzyme level: Status: Acute Code(s): R74.8 - Abnormal levels of other serum enzymes (3) Chest pain: Status: Acute Code(s): R07.9 - Chest pain, unspecified (4) Hyperlipidemia: Status: Chronic Code(s): E78.5 - Hyperlipidemia, unspecified (5) Essential hypertension: Status: Chronic Code(s): I10 - Essential (primary) hypertension Medications at Discharge Home Medications multivitamin 1 tab PO DAILY 01/20/20 aspirin 81 mg tablet,delayed release (Adult Low Dose Aspirin) 81 mg PO DAILY 06/06/20 hydrochlorothiazide 25 mg tablet 25 mg PO DAILY 07/04/20 ezetimibe 10 mg tablet (Zetia) 10 mg PO DAILY CHOLESTEROL 04/18/22 lisinopril 40 mg tablet 40 mg PO DAILY PRN BP 04/18/22 amiodarone 200 mg tablet 200 mg PO BID 7 days #14 tabs 04/20/22 amiodarone 200 mg tablet 200 mg PO DAILY 30 days #30 tabs 04/20/22 amiodarone 200 mg tablet 200 mg PO TID 1 day #3 tabs 04/20/22 apixaban 5 mg tablet (Eliquis) 5 mg PO BID 30 days #60 tabs 04/20/22 Hospital Course Operations None Procedures 2-D Echocardiogram and EKG Summary of Care Provided Minutes Spent on Discharge: 45 Hospital Course: ATTENDING PHYSICIAN DISCHARGE NOTE: Discharge Diagnoses: #1.? New onset, Paroxsymal atrial fibrillation with associated Chest pain with associated mild indeterminate troponin rise #2.? Normocytic anemia #2.? Chronic Kidney Disease Stage III, unclear subtype (baseline renal function similar noted to be 0.8-0.9 primarily) #4.? Prior CT Evidence CVA #5.? Hypertension #6.? Hyperlipidemia #7.? Morbid Obesity #8.? Former tobacco use #9.? CODE status: Full Code status Discharge Summary: The patient is an 81 y/o F w/ PMHx: Former tobacco use, CT prior evidence CVA, HTN, HLD, Morbid Obesity, CKD stage III unclear subtype, Hx NSVT/Atrial tachycardia who presented to the [facility] ED on 04/18/22 with history of onset left upper chest discomfort described as a pressure, 3-5 out of 10 in severity with its onset that radiated into the base of her neck and her shoulder area with blood pressure assessment at home noted to be 150s over 120s with a heart rate noted to be very quick and variable although she did not significantly feel this heart rate increase nor any palpitations associated and no specific dyspnea, nausea, emesis or diaphoresis but did have associated mild lightheadedness although this is difficult to see she has had this on and off with intermittent episodes for couple years. EKG in ED w/ atrial fibrillation w/ RVR. Patient administered amiodarone bolus and transition to drip in ED. while in the ED patient did fortunately convert however per cardiology discretion continued to completion of amiodarone drip.? Patient was transitioned to PCU, maintain on telemetry, serial cardiac enzymes initial 13 -> 29 -> 99 -> most recent 56, TSH 3.50, mag 2.3.? 04/19/2022 following completion of IV amiodarone drip transitioned per cardiology to oral amiodarone with likely plan to taper per review of current list.? Transition off heparin drip to Eliquis therapy.? Had been awaiting records from [facility] but given the were not available as of yet was able to at least clean his sink search and discussed with cardiology noted brief catheterization op note 02/14/[address] youth services specialist Dr. Mullins with noted normal left main, large-caliber vessel left anterior descending with proximal vessel mild diffuse less than 30% luminal narrowing, circumflex large caliber nondominant vessel with large obtuse marginal branch which extends to the apical lateral wall with mild diffuse disease, right coronary artery large-caliber dominant vessel with mild diffuse disease with no collaterals with no interventions and recommended medical therapy at that time.? Also most recent carotid ultrasound noted 04/16/2022 with right and left-sided 20 to 39% stenosis with patent and antegrade flow bilaterally with a left-sided subclavian artery plaque visualized but no evidence of hemodynamically significant stenosis.? Patient tolerated amiodarone transition without significant bradycardia therefore metoprolol discontinued and amiodarone taper transition ordered per cardiology and sent to patient's pharmacy. Additionally investigated cost for Eliquis therapy which was discussed at length with patient and she was amenable to the cost of approximately $40 per month at this time. Additionally had been some concern over patient's normocytic anemia with admission hemoglobin 12.9 with baseline prior approximately 12 however repeat 04/20/2020 211.4, stable, encourage continued outpatient follow-up with her PCP as well as her rectifying operator to assure labs remained stable. Dr. Mccarthy offered patient to follow-up with him however she prefers to continue with the [facility] and will call her rectifying operator first thing Thursday. During admission did discuss prior CT evidence 01/2020 one of the remote left-sided lacunar infarct at that time and noted that if patient has been unfortunately going in and out of this rhythm that has likely led to this increase stroke risk and recommended strongly she continue the anticoagulant therapy. Patient clinically improved, range in sinus rhythm therefore discharged home 04/20/2022. Discharge Time: > 35 Minutes DAY OF DISCHARGE PROGRESS NOTE: Subjective: Patient without acute event overnight per self and nursing report. Patient remained in sinus rhythm without events overnight. She denies any further episodes of chest discomfort. Patient denies fever, chills, nausea, emesis, abdominal pain or dyspnea. Patient agreeable to discharge to home with new medications including amiodarone with taper as well as Eliquis with discontinuation of metoprolol. Patient will be discharged with follow-up with primary care physician in addition to recommended call first thing Thursday to her rectifying operator to relay events and have appointment set up. Objective: T97.5, heart rate 68, BP 09/28/1951, respiratory rate 18, 98% on room air. Physical Examination: General: awake, alert, oriented x 3 and cooperative, seated upright in the PCU bed, denies any further chest discomfort Skin: normal color, turgor, no icterus, cyanosis. HEENT: AT/NC, EOMI, PERRLA, MMM. Lungs: Mild diminished, greater bases, poor effort, no rales, ronchi or wheezing; Heart: Remains in sinus rhythm, regular rate and rhythm; no gallop, rub audible. Abdomen: soft, morbidly obese, NTTP, ND, distant normal BS. Extremities: no cyanosis, clubbing, or edema. Neurological: patient awake, alert, oriented x 3; cognitive function appears intact upon questioning,; pupils equally reactive to light and accomodation; cranial nerves II-XII grossly normal, moving all 4 extremities, strength improved, appropriate. Psychiatric: affect appears normal, no acute evidence of depressive or anxiety feelings. Assessment and Plan: Please see hospital summary above. Weight / BMI Weight Weight: 230 lb 6.129 oz Body Mass Index (BMI) 40.6 ABG / Lab / Microbiology Data Result Diagrams: 04/20/22 05:35 04/20/22 05:35 Laboratory: Laboratory Results - last 24 hr 04/20/22 05:35: WBC 6.6, RBC 3.83 L, Hgb 11.4 L, Hct 35.8 L, MCV 93.5, MCH 29.8, MCHC 31.8 L, RDW Std Deviation 42.5, RDW Coeff of Robyn 12.4, Plt Count 244, MPV 10.9, Immature Gran % (Auto) 0.300, Neut % (Auto) 61.9, Lymph % (Auto) 23.3, [place] % (Auto) 11.8 H, Eos % (Auto) 2.1, Baso % (Auto) 0.6, Absolute Neuts (auto) 4.1, Absolute Lymphs (auto) 1.54, Nucleated RBC % 0 04/20/22 05:35: Sodium 141, Potassium 3.9, Chloride 110 H, Carbon Dioxide 26.0, Anion Gap 5, BUN 15, Creatinine 0.84, Estim Creat Clear Calc 44.19, Est GFR (MDRD) Af Amer 84, Est GFR (MDRD) Non-Af 70, BUN/Creatinine Ratio 18.0, Glucose 94, Calcium 8.5, Total Bilirubin 0.40, AST 18, ALT 14, Alkaline Phosphatase 52, Total Protein 6.6, Albumin 3.2, Globulin 3.4, Albumin/Globulin Ratio 0.9 D/C Instructions Discharge Diet: Low fat / Low cholesterol May resume sexual activity in: No Restrictions Call your doctor if you observe: Fever of 101 or Higher, Numbness or Tingling, Shortness of breath, Dizziness, Chest pain, Increased palpitations (irregular heartbeat) and Uncontrolled pain Meaningful Use Info Meaningful Use Diagnoses (Choose all that apply): None applicable Discharge Plan Admission Admit Date/Time: 04/18/22 14:36 Primary Reason for Your Visit: PAF with RVR Attending Provider: Trinidad Hernandez Primary Care Provider: Norm Shankar Consulting Providers: Lenny Mccarthy Instructions Patient Instructions: What Is Atrial Flutter/Atrial Fibrillation?, AFib Preventing Stroke, ED AFIB Discharge Orders/Prescriptions Prescriptions: New Eliquis 5 mg Tablet 5 mg PO BID 30 Days Qty: 60 0RF amiodarone 200 mg Tablet 200 mg PO DAILY 30 Days Qty: 30 0RF Rx Instructions: Complete 04/20/22 TID regimen->transition 04/21/22 to BID x 1 week then transition to daily. amiodarone 200 mg Tablet 200 mg PO BID 7 Days Qty: 14 0RF Rx Instructions: Once 04/20/22 TID regimen complete transition to BID x 1 week then daily. amiodarone 200 mg Tablet 200 mg PO TID 1 Days Qty: 3 0RF Rx Instructions: Complete 04/20/22 TID regimen then transition to BID x 1 week then daily. Continued multivitamin Tablet 1 tab PO DAILY aspirin [Adult Low Dose Aspirin] 81 mg tablet,delayed release (DR/EC) 81 mg PO DAILY hydrochlorothiazide 25 mg tablet 25 mg PO DAILY lisinopril 40 mg tablet 40 mg PO DAILY PRN (Reason: BP) ezetimibe [Zetia] 10 mg tablet 10 mg PO DAILY Discontinued metoprolol succinate 100 mg tablet extended release 24 hr 100 mg PO DAILY Rx Instructions: TAKE 1 TABLET EVERY DAY Referrals / Follow Up: Vj Mullins MD [Non-Staff] - (Please contact your primary rectifying operator Thursday and review recent admission and plan follow-up visit at their recommendation if you prefer.) Lenny Mccarthy MD [Med Staff - Active Staff] - (Follow-up as discussed with Dr. Mccarthy in the office.) Norm Shankar MD [Primary Care Provider] - (Follow-up with your PCP to review admission in 3-5 days.) Disposition Disposition (needs filled in before D/C Order can be placed): Home, Self Care Charges/Coding Visit Charges Inpatient E&M: 81976 Disch Hosp
== END 2022-04-20 12:53 | disposition home or self-care (01) | DRG 309 ==
LOC: ED 14:51 → PCU 14:53
PROVIDERS: Internal Medicine Cardiovascular Disease; Admitting Provider Family Medicine; Emergency Provider Emergency Medicine; PCP Family Medicine; Visit Provider Family Medicine
DX: I48.0 Paroxysmal atrial fibrillation (principal); Z68.41 Body mass index [BMI] 40.0-44.9, adult; E11.22 Type 2 diabetes mellitus with diabetic chronic kidney disease; E66.01 Morbid (severe) obesity due to excess calories; D64.9 Anemia, unspecified; E78.5 Hyperlipidemia, unspecified; N18.30 Chronic kidney disease, stage 3 unspecified; I12.9 Hypertensive chronic kidney disease with stage 1 through stage 4 chronic kidney disease, or unspecified chronic kidney disease; R77.8 Other specified abnormalities of plasma proteins; Z87.891 Personal history of nicotine dependence; Z79.01 Long term (current) use of anticoagulants; Z79.82 Long term (current) use of aspirin; R07.9 Chest pain, unspecified; Z86.73 Personal history of transient ischemic attack (TIA), and cerebral infarction without residual deficits
CPT/HCPCS: 36415; 71045; 80048; 80053; 80061; 83735; 84443; 84484; 85025; 85610; 85730; 93005; 93306; 99251; 99285; J7030; Q9957; A4216; G0463

== ENCOUNTER 2022-09-05 10:29 | Emergency (ER) | payer MEDICARE, SELFPAY ==
[2022-09-05 10:30] VITALS: BP 184/90; PULSE 70; RESP 18; TEMP 36.6; O2SAT 100; BMI 40.9
[2022-09-05 11:00] VITALS: BP 158/78; PULSE 63
--- NOTE | 2022-09-05 11:50 | CT_ITS ---
STUDY: CT ABDOMEN AND PELVIS WITH CONTRAST REASON FOR EXAM: Female, 82 years old. Bloody diarrhea, peritoneal findings -- Concern for C. difficile RADIATION DOSAGE (If Supplied By Facility): CTDIvol = ( 24.89 ) mGy, DLP = ( 1645.04 ) mGycm TECHNIQUE: CT images were obtained from the dome of the diaphragm to the symphysis pubis. IV 100mL Isovue-370 was administered. Sagittal and coronal images were reconstructed. Post-processing of the angiographic images was performed, with multiplanar reformation and 3D reconstruction including MIPS in 3 planes on a standalone workstation for the angiographic portion of the exam. Individualized dose optimization techniques were used for this CT. COMPARISON: None. FINDINGS: There is left basal atelectasis. There are no pleural effusions. Normal liver. Normal gallbladder and extrahepatic biliary system. Normal spleen. Normal pancreas. Normal bilateral adrenal glands. Normal right kidney. Normal left kidney. There is a simple exophytic left upper pole cyst. This does not require follow-up imaging. There is thickening of the descending and sigmoid with diverticulosis. There is no perforation or abscess. Aorta is normal caliber . There is no retroperitoneal lymphadenopathy. Normal urinary bladder. Normal abdominal wall. Normal osseous structures. There is left hip replacement. CT/Abdomen/Pelvis W IV Cont ONLY IMPRESSION: 1. Descending and sigmoid colitis, possibly C. difficile. Electronically Signed: Varsha Cano MD at 14:09 EST ,
--- NOTE | 2022-09-05 11:50 | EKG12_ITS ---
Test Reason : Blood Pressure : / mmHG Vent. Rate : 062 BPM Atrial Rate : 000 BPM P-R Int : 000 ms QRS Dur : 090 ms QT Int : 452 ms P-R-T Axes : 000 001 028 degrees QTc Int : 458 ms Junctional rhythm Nonspecific T wave abnormality Abnormal ECG Confirmed by MANUELA BERNSTEIN, FRANCK ([id number]), makeup editor CLARISSE JOHNSON ([id number]) on 09/10/2022 10:01:50 AM Referred By: MADONNA Confirmed By:FRANCK ROY MD
[2022-09-05] MEDS: 0.9% Normal Saline 1,000 ML 250 ML IV (12:04)
[2022-09-05] MEDS: Ondansetron 4 MG/2 ML Vial IV (12:05)
[2022-09-05 12:10] VITALS: BP 164/88; PULSE 71
[2022-09-05 12:23] LABS: Absolute Lymphocyte Count 1.58 X10^3/uL (0.83-4.51); Absolute Neutrophil Count 6.6 X10^3/uL (2.0-7.7); Basophil# 0.03 X10^3/uL; Basophil% 0.3 % (0-1); Eosinophil# 0.25 X10^3/uL; Eosinophils% 2.7 % (0-5); Hematocrit 33.1 % (37-47); Hemoglobin 10.7 g/dL (12.0-15.0); Lymphocyte # 1.58 X10^3/ul (0.83-4.51); Mean Corp Hgb Conc 32.3 g/dL (32-36); Mean Corpuscular Hgb 29.6 pg (27.0-32.0); Mean Corpuscular Volume 91.4 fL (81-99); Mean Platelet Vol. 10.9 fl (6.2-12.0); Monocyte# 0.82 X10^3/uL; Monocyte% 8.8 % (0-10); NRBC Flagged by Analyzer 0 % (0-5); Neutrophil # 6.58 X10^3/uL (2.7-7.7); Neutrophil % 70.6 % (47-70); Platelet Count 261 K/mm3 (150-450); RBC Distribution Width CV 13.2 % (11.6-14.6); RBC Distribution Width SD 43.6 fl (35.1-43.9); Red Blood Count 3.62 M/mm3 (4.2-5.4); White Blood Count 9.3 K/mm3 (4.4-11.0)
[2022-09-05 12:24] LABS: International Normalized Ratio 1.4; Prothrombin Time (Protime)PT. 16.6 SECONDS (11.7-14.9)
[2022-09-05 12:31] LABS: ALB/GLOB Ratio 0.9 RATIO (0.9-2.4); AST(SGOT) 29 U/L (15-37); Alanine Aminotransfer ALT/SGPT 23 U/L (13-56); Albumin, Serum 3.4 g/dL (3.2-5.0); Alkaline Phosphatase 60 U/L (45-117); Anion Gap 4 (5-15); BUN 31 mg/dL (7-18); BUN/Creat Ratio 25.4 RATIO (10-20); Calcium,Total 8.7 mg/dL (8.5-10.1); Chloride 107 mmol/L (98-107); Creatinine, Serum 1.22 mg/dL (0.55-1.02); EST Glomerular Filtration Rate 45 mL/min (>60); Est Glom Filt Rate - Afr Amer 54 mL/min (>60); Estimated Creatinine Clearance 31.23 ml/min; Globulin 3.7 g/dL (2.2-4.2); Glucose 88 mg/dL (74-106); Potassium 3.1 mmol/L (3.5-5.1); Protein, Total 7.1 g/dL (6.4-8.2); Sodium Level 141 mmol/L (136-145)
[2022-09-05 12:35] LABS: Lactic Acid 0.6 mmol/L (0.4-1.9)
--- NOTE | 2022-09-05 12:47 | ED.VIS.GI ---
HPI HPI - GI History of Present Illness Chief Complaint: GI Bleed Detail of Chief Complaint: Bloody stool/diarrhea Informant: patient Abdominal Pain/Flank Pain Onset: Today Context: Sudden Onset Timing: Continuous Quality: Aching (Bilateral lower quadrants) Location: RLQ and LLQ Current Severity: Mild Maximum Severity: Moderate Worsened by: Nothing Relieved by: Nothing Nausea/Vomiting/Emesis GI Symptom: Positive for Nausea; Negative for Vomiting Onset: Yesterday Diarrhea/Melena/Hematochezia GI Symptom: Positive for Diarrhea (For loose stools) and Hematochezia; Negative for Melena Onset: Yesterday Stool Quality: Positive for Loose and Watery Severity: Moderate Associated Symptoms Associated Symptoms: Negative for Dysuria, Frequency, Hematuria or Urgency Narrative Narrative: Patient is a 82-year-old woman with history of tension, on anticoagulant as well as aspirin who was recently placed on antibiotic because of elevated white count. Source of infection is unknown. She also was recently started on levothyroxine for hypothyroidism. Patient denies fever, chills night sweats. She denies headache, visual, ocular auditory symptoms. She denies cardiac respiratory symptoms. She does complain of an achy crampy bilateral lower quadrant abdominal pain. Diarrhea started yesterday. Blood was noted today. She does report odor to the stool. She is presently on doxycycline. She denies prior history of pseudomembranous enterocolitis. She denies dysuria, frequency, urgency or hematuria. She denies change in the color of her urine. She does bruise easily due to anticoagulant. She denies bleeding of her gums or blood in her urine. Prior similar symptoms: No Recent Illness/Hospitalization: Yes [facility] Medical History Abnormal cardiac enzyme level Atrial fibrillation with rapid ventricular response CKD (chronic kidney disease) stage 3, GFR 30-59 ml/min Essential hypertension Former tobacco use Generalized osteoarthrosis, unspecified site History of solitary pulmonary nodule Hyperlipidemia Lacunar infarction New onset atrial fibrillation Nonsustained ventricular tachycardia PAF (paroxysmal atrial fibrillation) Home Medications multivitamin 1 tab PO DAILY 01/20/20 [History Last Taken 04/17/22] aspirin 81 mg tablet,delayed release (Adult Low Dose Aspirin) 81 mg PO DAILY 06/06/20 [History Last Taken 04/17/22] hydrochlorothiazide 25 mg tablet 25 mg PO DAILY 07/04/20 [History Last Taken 04/18/22] ezetimibe 10 mg tablet (Zetia) 10 mg PO DAILY CHOLESTEROL 04/18/22 [History Last Taken 04/18/22] lisinopril 40 mg tablet 40 mg PO DAILY PRN BP 04/18/22 [History Last Taken 04/18/22] amiodarone 200 mg tablet 200 mg PO BID 7 days #14 tabs 04/20/22 [Rx Last Taken Unknown] amiodarone 200 mg tablet 200 mg PO DAILY 30 days #30 tabs 04/20/22 [Rx Last Taken Unknown] amiodarone 200 mg tablet 200 mg PO TID 1 day #3 tabs 04/20/22 [Rx Last Taken Unknown] apixaban 5 mg tablet (Eliquis) 5 mg PO BID 30 days #60 tabs 04/20/22 [Rx Last Taken Unknown] doxycycline monohydrate 100 mg tablet 100 mg PO DAILY 09/05/22 [History Last Taken Unknown] levothyroxine 50 mcg tablet 50 mcg PO DAILY 09/05/22 [History Last Taken Unknown] vancomycin 125 mg capsule 125 mg PO Q6H 10 days #40 caps 09/05/22 [Rx Last Taken Unknown] Allergy/AdvReac Type Severity Reaction Status Date / Time amlodipine [From [facility]] AdvReac Intermediate swelling Verified 04/18/22 12:54 diltiazem AdvReac Intermediate Flushed, Verified 04/18/22 12:54 dizzy, h/a, sob, irreg HR [id number] Reductase AdvReac Other Verified 04/18/22 12:54 Inhibitor [Cawdxei-Tte-Alq Reductase Inhibitor] Family History Mother Heart disease Hypertension Father Hypertension Kidney disease Surgical History History of ankle surgery History of arthroscopy of right knee History of carpal tunnel surgery of right wrist Social History household members: none Smoking Status: Former smoker how long ago did patient quit smokin years ago alcohol intake: never substance use type: does not use caffeine: Yes Type: coffee Number of servings: 2 ROS ROS ED Constitutional Constitutional ED: Reports chills; Denies fever(s), subjective, sweats or weight loss ENT ENT ED: Denies ear pain, rhinorrhea or sore throat Cardiovascular Cardiovascular: Denies chest pain, palpitations or racing heartbeat Respiratory/Chest Respiratory/Chest: Denies cough, dyspnea or dyspnea on exertion Gastrointestinal Gastrointestinal: Reports abdominal pain, diarrhea and nausea; Denies constipation, melena or vomiting Genitourinary Genitourinary ED: Denies dysuria, hematuria or urinary frequency Musculoskeletal Musculoskeletal: Denies arthralgias, back pain, myalgias or neck pain Integumentary Denies abscess or rash Neurologic Neurologic: Denies headache(s), paresthesias or weakness Psychiatric Psychiatric: Denies anxiety or depression Endocrine Endocrinology: Denies polydipsia, polyphagia or polyuria Hematologic/Lymphatic Hematologic/Lymphatic: Reports easy bruising; Denies easy bleeding Allergic/Immunologic Allergic/Immunologic ED: Denies mouth swelling or tongue swelling EXAM Physical Exam Const Vital Signs: 09/05/22 10:30 09/05/22 11:00 09/05/22 12:10 Temperature 98 F Temperature Source Temporal Pulse Rate 70 63 71 Respiratory Rate 18 Blood Pressure 184/90 H 158/78 H 164/88 H Blood Pressure Mean 121 104 113 Pulse Ox 100 Oxygen Delivery Method Room Air 09/05/22 13:00 Temperature Temperature Source Pulse Rate 86 Respiratory Rate Blood Pressure 162/82 H Blood Pressure Mean 108 Pulse Ox Oxygen Delivery Method Positive well nourished, well developed and obese; Negative for cachectic, contractures or unkempt General Appearance ED: well developed, NAD and pallor; Negative for unkempt, cachectic or contractures Nutritional Appearance: obese; Negative for cachectic HEENT Reports TM's clear and moist mucous membranes normocephalic and atraumatic Tympanic Membrane ED: Yes TM's clear Eyes PERRL and EOMs intact bilaterally General Eye ED: Yes pale conjunctiva and scleral icterus Neck no lymphadenopathy, supple and no JVD Resp normal respiratory effort and clear to auscultation bilaterally Cardio regular rate, regular rhythm, S1 normal heart sound, S2 normal heart sound and no murmurs GI no masses; Negative for non-tender or non-distended Inspection: abdominal distention Auscultation: hyperactive bowel sounds Palpation: tender LLQ and RLQ and guarding LLQ; Negative for rigid, hepatomegaly, splenomegaly, hernia, mass or pulsatile mass Back/Spine no CVA tenderness Cervical Spine: Negative for cervical spine tenderness Thoracic Spine / Upper Back: Negative for thoracic spinal tenderness Extremity full ROM General Extremety ED: Negative for edema or tenderness General Extremity: Negative for edema Neuro CN's II-XII intact bilaterally, moves all extremities and no sensory deficits noted Sensorium / Orientation: alert Psych Appearance: Negative for unkempt Skin no wounds General Skin Exam: pallor; Negative for jaundice Lesions: no lesions Rashes: no rashes Trauma: abrasion MDM MDM MDM Narrative Medical decision making narrative: On rectal exam there is no obvious fissures, fistulas or hemorrhoids noted. There is mucousy bloody material noted. Patient had minimal discomfort on rectal exam. Will perform anoscopy. Based on anoscopy findings need to evaluate for infectious diarrhea and specifically Pseudomonas enterocolitis also need to consider ischemic colitis. Bleeding may be worse because patient is on anticoagulant apixaban. Because patient has mild peritoneal findings CT was obtained. Patient was reexamined at 09/11/2000. She no longer has percussion tenderness or guarding. She does have mild tenderness predominantly in the left lower quadrant. Since she has a normal white count, and no peritoneal findings she was discharged to home with prescription for vancomycin. She was instructed to discontinue the doxycycline and do not take the new antibiotic she was prescribed. Patient was encouraged to drink more fluids since her creatinine is up slightly from baseline. Lab Data Attestation: I reviewed the patient's lab results. Lab results narrative: White count is normal. Differential reveals mild shift with no anemia. There is mild and EMEA and did. Coags indicates slight elevation of PT comprehensive metabolic panel reveals a creatinine of 1.22 with a GFR of 45. BUN/creatinine ratio is elevated 25-1. AK-Yang is normal. Labs: Laboratory Results - last 24 hr 09/05/22 09/05/22 09/05/22 11:05 11:05 11:05 WBC 9.3 RBC 3.62 L Hgb 10.7 L Hct 33.1 L MCV 91.4 MCH 29.6 MCHC 32.3 RDW Std Deviation 43.6 RDW Coeff of Robyn 13.2 Plt Count 261 MPV 10.9 Immature Gran % (Auto) 0.600 Neut % (Auto) 70.6 H Lymph % (Auto) 17.0 L Archer % (Auto) 8.8 Eos % (Auto) 2.7 Baso % (Auto) 0.3 Absolute Neuts (auto) 6.6 Absolute Lymphs (auto) 1.58 Nucleated RBC % 0 PT 16.6 H INR 1.4 APTT 36.0 Sodium 141 Potassium 3.1 L Chloride 107 Carbon Dioxide 30.0 Anion Gap 4 L BUN 31 H Creatinine 1.22 H Estim Creat Clear Calc 31.23 Est GFR (MDRD) Af Amer 54 L Est GFR (MDRD) Non-Af 45 L BUN/Creatinine Ratio 25.4 H Glucose 88 Lactic Acid Calcium 8.7 Total Bilirubin 0.40 AST 29 ALT 23 Alkaline Phosphatase 60 Total Protein 7.1 Albumin 3.4 Globulin 3.7 Albumin/Globulin Ratio 0.9 09/05/22 11:05 WBC RBC Hgb Hct MCV MCH MCHC RDW Std Deviation RDW Coeff of Robyn Plt Count MPV Immature Gran % (Auto) Neut % (Auto) Lymph % (Auto) Archer % (Auto) Eos % (Auto) Baso % (Auto) Absolute Neuts (auto) Absolute Lymphs (auto) Nucleated RBC % PT INR APTT Sodium Potassium Chloride Carbon Dioxide Anion Gap BUN Creatinine Estim Creat Clear Calc Est GFR (MDRD) Af Amer Est GFR (MDRD) Non-Af BUN/Creatinine Ratio Glucose Lactic Acid 0.6 Calcium Total Bilirubin AST ALT Alkaline Phosphatase Total Protein Albumin Globulin Albumin/Globulin Ratio Radiography Diagnostic Testing: Clinical Impression(s) from Imaging Studies Abdomen/Pelvis CT 09/05/22 11:50 IMPRESSION: 1. Descending and sigmoid colitis, possibly C. difficile. Electronically Signed: Varsha Cano MD at 14:09 EST , EKG Initial EKG: Attestation: I personally reviewed and interpreted this EKG as follows: Interpretation: Sinus Rhythm (Ventricular rate is 62. This is not junctional as interpreted by computer. IA interval is normal. QRS duration is 90 ms. QT duration is 452. [place] is normal. The EKG is normal) Procedures Other Procedures Procedure(s): Anoscopy was performed. There is no evidence of hemorrhoids or active bleeding. Patient does have bloody mucoid brownish material noted. There appears to be pseudomembranes. Discharge Plan Triage Chief Complaint: GI Bleed ED Provider: Milton Nguyen Dx/Rx/DC Orders Clinical Impression: Pseudomembranous enterocolitis, Intestinal infection due to bacteria causing bloody diarrhea, Anticoagulant long-term use, Acute kidney insufficiency Instructions: Clostridium Difficile Infection, ED Renal Insufficiency Prescriptions: New vancomycin 125 mg capsule 125 mg PO Q6H 10 Days Qty: 40 0RF No Action multivitamin Tablet 1 tab PO DAILY aspirin [Adult Low Dose Aspirin] 81 mg tablet,delayed release (DR/EC) 81 mg PO DAILY hydrochlorothiazide 25 mg tablet 25 mg PO DAILY lisinopril 40 mg tablet 40 mg PO DAILY PRN (Reason: BP) ezetimibe [Zetia] 10 mg tablet 10 mg PO DAILY Eliquis 5 mg Tablet 5 mg PO BID 30 Days Qty: 60 0RF amiodarone 200 mg Tablet 200 mg PO DAILY 30 Days Qty: 30 0RF Rx Instructions: Complete 04/20/22 TID regimen->transition 04/21/22 to BID x 1 week then transition to daily. amiodarone 200 mg Tablet 200 mg PO BID 7 Days Qty: 14 0RF Rx Instructions: Once 04/20/22 TID regimen complete transition to BID x 1 week then daily. amiodarone 200 mg Tablet 200 mg PO TID 1 Days Qty: 3 0RF Rx Instructions: Complete 04/20/22 TID regimen then transition to BID x 1 week then daily. doxycycline monohydrate 100 mg tablet 100 mg PO DAILY levothyroxine 50 mcg tablet 50 mcg PO DAILY Label Comments: TAKE 1 TABLET BY MOUTH ONCE DAILY ON AN EMPTY STOMACH FOR THYROID Primary Care Provider: Norm Shankar Referrals: Norm Shankar MD [Primary Care Provider] - 3-5 Days if not improving Activity Restrictions/Additional Instructions: Do not take Eliquis for the next 3 days Discontinue taking the doxycycline Do not take any of the new antibiotics her doctor prescribed you Take the vancomycin as prescribed, 4 times a day for 10 days Disposition Disposition: Home, Self Care
[2022-09-05 13:00] VITALS: BP 162/82; PULSE 86
[2022-09-05] MEDS: Vancomycin 125 MG/5 ML Susp PO.SYRINGE PO (15:14)
--- NOTE | 2022-09-05 19:05 | CM.ED ---
SW was advised that patient needs PA for vancomycin. SW [facility] to [facility] and the cost of her meds was $70.52. SW called [facility] and it was confirmed that the cost of meds was $70.52.BIANCA called patient and she said that she has no copay and only pays $133 for eliquis for 3 months. She requested PA for her meds. SW called cover my meds and spoke to [facility]. [facility] gave authorization for medication. Authorization [id number]. BIANCA received fax regarding authorization. BIANCA called [facility] and was advised that copay was $90.50. SW updated patient that there was a PA approved and the copay cost. Patient said that she got a text that her vancomycin at [facility] was $70.52 (through [facility]) and thus would use that. updated. Arleth KARIMI
== END 2022-09-05 15:33 | disposition home or self-care (01) ==
PROVIDERS: Emergency Provider Emergency Medicine; PCP Family Medicine; Visit Provider Emergency Medicine
DX: A04.72 Enterocolitis due to Clostridium difficile, not specified as recurrent (principal); N18.30 Chronic kidney disease, stage 3 unspecified; R10.32 Left lower quadrant pain; R10.31 Right lower quadrant pain; R10.814 Left lower quadrant abdominal tenderness; I12.9 Hypertensive chronic kidney disease with stage 1 through stage 4 chronic kidney disease, or unspecified chronic kidney disease; E78.5 Hyperlipidemia, unspecified; R19.7 Diarrhea, unspecified; Z79.01 Long term (current) use of anticoagulants; Z79.82 Long term (current) use of aspirin; Z87.891 Personal history of nicotine dependence; E66.9 Obesity, unspecified
CPT/HCPCS: 74177; 80053; 83605; 85025; 85610; 85730; 93005; 99283; J7030; Q9967; A4216; J2405

== ENCOUNTER 2022-11-12 19:41 | Emergency (ER) | payer MEDICARE, SELFPAY ==
[2022-11-12 19:42] VITALS: BP 196/80; PULSE 63; RESP 16; TEMP 36.2; O2SAT 100; BMI 43.4
--- NOTE | 2022-11-12 20:54 | ED.VIS.LOWEX ---
HPI History of Present Illness Chief Complaint: Lower Extremity Injury Narrative Narrative: 2-year-old female presenting with bilateral foot pain. This is not a new issue. Its on the dorsum of her bilateral feet worse on the left than the right. She states she has burning pain in these places. It also thompson in the distal tibial region. She denies any trauma. She states that her feet are sometimes more purple/red than usual on the heels. She notes a little bit of edema in the left ankle which is also not new. She was seen by her primary care physician who did ABIs today and told her that her blood flow was good. She is also on Eliquis 5 mg p.o. twice daily. She does deny chest pain, shortness of breath, orthopnea, dyspnea on exertion. [facility] Medical History Abnormal cardiac enzyme level Atrial fibrillation with rapid ventricular response CKD (chronic kidney disease) stage 3, GFR 30-59 ml/min Essential hypertension Former tobacco use Generalized osteoarthrosis, unspecified site History of solitary pulmonary nodule Hyperlipidemia Lacunar infarction New onset atrial fibrillation Nonsustained ventricular tachycardia PAF (paroxysmal atrial fibrillation) Home Medications multivitamin 1 tab PO DAILY 01/20/20 [History Last Taken 04/17/22] aspirin 81 mg tablet,delayed release (Adult Low Dose Aspirin) 81 mg PO DAILY 06/06/20 [History Last Taken 04/17/22] hydrochlorothiazide 25 mg tablet 25 mg PO DAILY 07/04/20 [History Last Taken 04/18/22] ezetimibe 10 mg tablet (Zetia) 10 mg PO DAILY CHOLESTEROL 04/18/22 [History Last Taken 04/18/22] lisinopril 40 mg tablet 40 mg PO DAILY PRN BP 04/18/22 [History Last Taken 04/18/22] amiodarone 200 mg tablet 200 mg PO BID 7 days #14 tabs 04/20/22 [Rx Last Taken Unknown] amiodarone 200 mg tablet 200 mg PO DAILY 30 days #30 tabs 04/20/22 [Rx Last Taken Unknown] amiodarone 200 mg tablet 200 mg PO TID 1 day #3 tabs 04/20/22 [Rx Last Taken Unknown] apixaban 5 mg tablet (Eliquis) 5 mg PO BID 30 days #60 tabs 04/20/22 [Rx Last Taken Unknown] doxycycline monohydrate 100 mg tablet 100 mg PO DAILY 09/05/22 [History Last Taken Unknown] levothyroxine 50 mcg tablet 50 mcg PO DAILY 09/05/22 [History Last Taken Unknown] vancomycin 125 mg capsule 125 mg PO Q6H 10 days #40 caps 09/05/22 [Rx Last Taken Unknown] Allergy/AdvReac Type Severity Reaction Status Date / Time amlodipine [From [facility]] AdvReac Intermediate swelling Verified 11/12/22 19:45 diltiazem AdvReac Intermediate Flushed, Verified 11/12/22 19:45 dizzy, h/a, sob, irreg HR [id number] Reductase AdvReac Other Verified 11/12/22 19:45 Inhibitor [Ypciyoh-Dxs-Qgn Reductase Inhibitor] Family History Mother Heart disease Hypertension Father Hypertension Kidney disease Surgical History History of ankle surgery History of arthroscopy of right knee History of carpal tunnel surgery of right wrist Social History household members: none Smoking Status: Former smoker how long ago did patient quit smokin years ago alcohol intake: never substance use type: does not use caffeine: Yes Type: coffee Number of servings: 2 ROS ROS ED Constitutional Constitutional ED: Denies chills, fever(s) or sweats Eyes Eyes: Denies blurry vision or change in vision ENT ENT ED: Denies ear pain or sore throat Cardiovascular Cardiovascular: Denies chest pain, palpitations or racing heartbeat Respiratory/Chest Respiratory/Chest: Denies cough, dyspnea or sputum Gastrointestinal Gastrointestinal: Denies abdominal pain, constipation, diarrhea, nausea or vomiting Genitourinary Genitourinary ED: Denies dysuria, hematuria or urinary frequency Musculoskeletal Musculoskeletal: Denies arthralgias, myalgias or neck pain Integumentary Denies abscess, Abrasions or rash Neurologic Neurologic: Denies headache(s), paresthesias or weakness Psychiatric Psychiatric: Denies anxiety, depression, suicidal ideation or suicidal thoughts Endocrine Endocrinology: Denies polydipsia or polyuria EXAM Physical Exam Const Vital Signs: 11/12/22 19:42 11/12/22 20:10 Temperature 97.2 F L Temperature Source Temporal Pulse Rate 63 Respiratory Rate 16 Blood Pressure 196/80 H Blood Pressure Mean 118 Pulse Ox 100 Oxygen Delivery Method Room Air Room Air Positive well nourished General Appearance ED: NAD HEENT Reports moist mucous membranes Resp normal respiratory effort and no retractions Cardio regular rate and regular rhythm Extremity Right Lower Extremity: lower leg other (Compartments of the calf are soft. No cords palpated.) and foot and digits Positive for other (Neurovascular intact brisk cap refill to all 5 toes. DP/PT +2/4 and symmetric bilaterally) Left Lower Extremity: lower leg other (Compartments of the calf are soft. No cords palpated.) and foot and digits Positive for inspection, palpation, ROM and other (Neurovascular intact brisk cap refill to all 5 toes. DP/PT +2/4 and symmetric bilaterally) Neuro oriented x3 Sensorium / Orientation: alert Motor Exam: strength 5/5 throughout MDM MDM MDM Narrative Medical decision making narrative: Patient presenting at the request of her primary care physician. She reported to them that her feet were purple and red. She was referred to the emergency room. She had ABIs done earlier today. I spoke with Dr. Yanes who is on-call for Dr. Shankar who stated that per his notes he just wanted to make sure she had good pulses and neurologic exam of her feet. Her physical exam is relatively unremarkable with exception of a little bit of discoloration to the heels/calcaneus bilaterally. This is not new per the patient. I suspect she might have a peripheral neuropathy. This was discussed with Dr. Yanes I do not believe she needs any blood work or imaging. She was amenable to this. She is to follow-up with her primary care doctor tomorrow. Impression: 1. Peripheral neuropathy Discharge Plan Triage Chief Complaint: Lower Extremity Injury ED Provider: Vaibhav Nielson Dx/Rx/DC Orders Prescriptions: No Action multivitamin Tablet 1 tab PO DAILY aspirin [Adult Low Dose Aspirin] 81 mg tablet,delayed release (DR/EC) 81 mg PO DAILY hydrochlorothiazide 25 mg tablet 25 mg PO DAILY lisinopril 40 mg tablet 40 mg PO DAILY PRN (Reason: BP) ezetimibe [Zetia] 10 mg tablet 10 mg PO DAILY Eliquis 5 mg Tablet 5 mg PO BID 30 Days Qty: 60 0RF amiodarone 200 mg Tablet 200 mg PO DAILY 30 Days Qty: 30 0RF Rx Instructions: Complete 04/20/22 TID regimen->transition 04/21/22 to BID x 1 week then transition to daily. amiodarone 200 mg Tablet 200 mg PO BID 7 Days Qty: 14 0RF Rx Instructions: Once 04/20/22 TID regimen complete transition to BID x 1 week then daily. amiodarone 200 mg Tablet 200 mg PO TID 1 Days Qty: 3 0RF Rx Instructions: Complete 04/20/22 TID regimen then transition to BID x 1 week then daily. doxycycline monohydrate 100 mg tablet 100 mg PO DAILY levothyroxine 50 mcg tablet 50 mcg PO DAILY Label Comments: TAKE 1 TABLET BY MOUTH ONCE DAILY ON AN EMPTY STOMACH FOR THYROID vancomycin 125 mg capsule 125 mg PO Q6H 10 Days Qty: 40 0RF Primary Care Provider: Norm Shankar Referrals: Norm Shankar MD [Primary Care Provider] -
== END 2022-11-12 21:41 | disposition home or self-care (01) ==
PROVIDERS: Emergency Provider Student in an Organized Health Care Education/Training Program; PCP Family Medicine; Visit Provider Student in an Organized Health Care Education/Training Program
DX: G62.9 Polyneuropathy, unspecified (principal); I48.0 Paroxysmal atrial fibrillation; N18.30 Chronic kidney disease, stage 3 unspecified; Z87.891 Personal history of nicotine dependence; E78.5 Hyperlipidemia, unspecified; M79.671 Pain in right foot; M79.672 Pain in left foot; I12.9 Hypertensive chronic kidney disease with stage 1 through stage 4 chronic kidney disease, or unspecified chronic kidney disease; Z79.82 Long term (current) use of aspirin
CPT/HCPCS: 99282

== ENCOUNTER → 2023-11-06 | Outpatient (CLI) | payer MEDICARE, SELFPAY ==
[2023-11-06 17:45] LABS: Absolute Lymphocyte Count 1.31 X10^3/uL (0.83-4.51); Basophil# 0.02 X10^3/uL; Basophil% 0.3 % (0-1); Eosinophil# 0.29 X10^3/uL; Eosinophils% 4.6 % (0-5); Hematocrit 36.3 % (37-47); Hemoglobin 11.5 g/dL (12.0-15.0); Lymphocyte # 1.31 X10^3/ul (0.83-4.51); Lymphocyte % 20.7 % (19-41); Mean Corp Hgb Conc 31.7 g/dL (32-36); Mean Corpuscular Hgb 29.1 pg (27.0-32.0); Mean Corpuscular Volume 91.9 fL (81-99); Mean Platelet Vol. 10.5 fl (6.2-12.0); Monocyte# 0.71 X10^3/uL; Monocyte% 11.2 % (0-10); NRBC Flagged by Analyzer 0 % (0-5); Neutrophil # 3.98 X10^3/uL (2.7-7.7); Neutrophil % 62.9 % (47-70); Platelet Count 294 K/mm3 (150-450); RBC Distribution Width CV 12.8 % (11.6-14.6); RBC Distribution Width SD 43.1 fl (35.1-43.9); Red Blood Count 3.95 M/mm3 (4.2-5.4); White Blood Count 6.3 K/mm3 (4.4-11.0)
--- OUTSIDE RECORDS SUMMARY | 2023-11-06 17:59 | XMS RPT_ITS | CCD ---
Author Name Unknown Address [address] [place] [address] Organization [facility] Care Team Providers Care Welfare Case Worker Name Role Phone Norm Sharif MD Primary Care Provider Deshawn Tang Unavailable Unavailable LACEY, DR RAFA Juarez Admitting Unavailable KOLE, NORM BERNSTEIN Referring Unavailable KOLE, NORM BERNSTEIN Consulting Unavailable LACEY, DR RAFA Juarez Attending Unavailable LACEY, DR RAFA Juarez Primary Care Unavailable PROVIDER, UNKNOWN Consulting Unavailable Cristobal RN, Radha Unavailable [phone] Norm Sharif MD Primary Care Provider Cristobal RN, Radha Unavailable Norm Sharif MD Primary Care Provider Cristobal RN, Radha Unavailable [phone] Norm Sharif MD Primary Care Provider Cristobal RN, Radha Unavailable Jamaal RN, Darlene Juarez Unavailable Unavailable Jamaal PICHARDO, Darlene Juarez Unavailable Unavailable NORM SHARIF Primary Care Unavailable NORM SHARIF Referring Unavailable NORM SHARIF Attending Unavailable NORM SHARIF Primary Care Unavailable NORM SHARIF Primary Care Unavailable NORM SHARIF Referring Unavailable NORM SHARIF Primary Care Unavailable REJI PRAKASH Attending Unavailable NORM SHARIF Referring Unavailable NORM SHARIF Primary Care Unavailable MARY TAYLOR Attending Unavailable NORM SHARIF Primary Care Unavailable MARY TAYLOR Referring Unavailable NORM SHARIF Primary Care Unavailable NORM SHARIF Primary Care Unavailable KAPIL YADAV Referring Unavailable NORM SHARIF Primary Care Unavailable Julio KERNS Referring Unavailable NORM SHARIF Primary Care Unavailable REJI PRAKASH Referring Unavailable NORM SHARIF Primary Care Unavailable NORM SHARIF Referring Unavailable REJI BARKSDALE Attending Unavailable NORM SHARIF Primary Care Unavailable KOLENORM Referring Unavailable KOLENORM Ortega Attending Unavailable NORM SHARIF Primary Care Unavailable KOLE, NORM Henson Primary Care Unavailable KOLE, NORM Henson Primary Care Unavailable Julio KERNS Referring Unavailable REJI PRAKASH Attending Unavailable NORM SHARIF Referring Unavailable NORM SHARIF Primary Care Unavailable KOLE, NORM Henson Referring Unavailable KOLE, NORM Henson Primary Care Unavailable KOLE, NORM Henson Primary Care Unavailable Julio KERNS Attending Unavailable KOLE, NORM Henson Primary Care Unavailable KAPIL YADAV Referring Unavailable KAPIL YADAV Attending Unavailable KOLENORM Referring Unavailable KOLE, NORM Henson Primary Care Unavailable KOLE, NORM Henson Primary Care Unavailable KOLE, NORM Henson Attending Unavailable KOLE, NORM Henson Referring Unavailable KOLE, NORM Henson Primary Care Unavailable KOLE, NORM Henson Primary Care Unavailable Julio KERNS Referring Unavailable KOLENORM Primary Care Unavailable KOLENORM Attending Unavailable KOLENORM Attending Unavailable KOLE, NORM Henson Primary Care Unavailable Allergies Allergy Classification Reported Allergen(s) Allergy Type Date of Onset Reaction(s) Facility (15 sources) HMG-CoA reductase inhibitor; Translations: [[id number] REDUCTASE INHIBITORS] Drug Intolerance 0 Myalgia [facility] Work Phone: (15 sources) Non-steroidal anti-inflammato ry agent; Translations: [NSAIDS (NON-STEROIDAL ANTI-INFLAMMATO RY DRUG)] Propensity to adverse reactions to drug 2 Other: See Comments [facility] Work Phone: (20 sources) HMG-CoA reductase inhibitor Drug Intolerance 0 Myalgia [facility] Work Phone: (20 sources) Non-steroidal anti-inflammato ry agent Propensity to adverse reactions to drug 2 Other: See Comments [facility] Work Phone: Medications Current Medications Medication Drug Class(es) Dates Sig (Normalized) Sig (Original) apixaban 5 mg oral tablet (20 sources) Factor Xa Inhibitor Start: 04-20-2022 End: 10-04-2024 take 1 tablet by mouth twice daily apixaban (ELIQUIS) 5 mg tab(s) Take 1 tablet by mouth two times a day. 180 tablet 3 10/05/2023 10/04/2024 Active Completed/Discontinued Medications Medication Drug Class(es) Dates Sig (Normalized) Sig (Original) acetaminophen 500 mg oral tablet (20 sources) Start: 12-26-2021 take 2 tablets by mouth every eight hours as needed acetaminophen (TYLENOL) 500 mg tablet Take 2 tablets by mouth every 8 hours as needed for pain. 90 tablet 0 12/26/2021 Active Problems Active Problems Problem Classification Problem Date Documented Da te Episodic/Chronic Cardiac dysrhythmias (20 sources) Atrial tachycardia; Translations: [Supraventricular tachycardia] Onset: 11-05-2020 Chronic Chronic kidney disease (20 sources) Chronic kidney disease stage 3; Translations: [Stage 3 chronic kidney disease, unspecified whether stage 3a or 3b CKD (HCC)] Onset: 11-23-2018 Chronic Chronic kidney disease (1 source) Chronic kidney disease; Translations: [Stage 3 chronic kidney disease, unspecified whether stage 3a or 3b CKD (HCC)] Onset: 11-23-2018 Chronic obstructive pulmonary disease and bronchiectasis (1 source) Bronchitis; Translations: [Bronchitis, not specified as acute or chronic] Episodic Coronary atherosclerosis and other heart disease (20 sources) Coronary atherosclerosis; Translations: [Atherosclerotic heart disease of [place] coronary artery without angina pectoris] Onset: 02-20-2022 Chronic Deficiency and other anemia (1 source) Anemia; Translations: [Anemia, unspecified] Episodic Disorders of lipid metabolism (20 sources) Mixed hyperlipidemia; Translations: [Mixed hyperlipidemia] Onset: 07-19-2008 Chronic Essential hypertension (20 sources) Benign essential hypertension; Translations: [Essential (primary) hypertension] Onset: 08-03-2012 Chronic Gastrointestinal hemorrhage (3 sources) Rectal hemorrhage; Translations: [Hemorrhage of anus and rectum] Episodic Genitourinary symptoms and ill-defined conditions (1 source) Urinary incontinence; Translations: [Unspecified urinary incontinence] Chronic Noninfectious gastroenteritis (2 sources) Colitis; Translations: [Noninfective gastroenteritis and colitis, unspecified] Episodic Occlusion or stenosis of precerebral arteries (20 sources) Bilateral stenosis of carotid arteries; Translations: [Occlusion and stenosis of bilateral carotid arteries] Onset: 02-04-2023 Chronic Osteoarthritis (20 sources) Osteoarthritis of right knee joint; Translations: [Unilateral primary osteoarthritis, right knee] Onset: 03-31-2011 Chronic Other bone disease and musculoskeletal deformities (1 source) Disorder of bone; Translations: [Disorder of bone, unspecified] 06-23-2023 Episodic Other circulatory disease (1 source) Ecchymosis; Translations: [Hemorrhage, not elsewhere classified] 10-26-2023 Episodic Other connective tissue disease (20 sources) History of total replacement of left hip joint; Translations: [Presence of left artificial hip joint] Onset: 07-17-2021 Chronic Other connective tissue disease (5 sources) History of total knee arthroplasty; Translations: [Presence of right artificial knee joint] Chronic Other connective tissue disease (3 sources) History of right total knee replacement; Translations: [Presence of right artificial knee joint] Chronic Other connective tissue disease (1 source) History of repair of hip joint; Translations: [Presence of left artificial hip joint] Chronic Other connective tissue disease (1 source) Presence of left artificial hip joint; Translations: [History of left hip replacement] Onset: 08-04-2023 Chronic Other connective tissue disease (1 source) Presence of right artificial knee joint; Translations: [History of total right knee replacement] Onset: 03-02-2023 Chronic Other connective tissue disease (1 source) Pain in bilateral legs; Translations: [Pain in right leg] 06-22-2023 Episodic Other gastrointestinal disorders (1 source) Acute constipation; Translations: [Constipation, unspecified] Episodic Other gastrointestinal disorders (2 sources) Diarrhea; Translations: [Diarrhea, unspecified] Episodic Other hematologic conditions (1 source) ESR raised; Translations: [Elevated erythrocyte sedimentation rate] 07-24-2023 Episodic Other hematologic conditions (1 source) Elevated erythrocyte sedimentation rate; Translations: [Elevated sed rate] Onset: 09-01-2023 Episodic Other inflammatory condition of skin (1 source) Itching ; Translations: [Pruritus, unspecified] 06-22-2023 Episodic Other non-traumatic joint disorders (3 sources) Multiple joint pain; Translations: [Pain in unspecified joint] 06-23-2023 Episodic Other non-traumatic joint disorders (1 source) Pain in unspecified joint; Translations: [Polyarthralgia] Onset: 09-01-2023 Episodic Other non-traumatic joint disorders (1 source) Pain in left hip; Translations: [Pain of left hip] Onset: 08-04-2023 Episodic Other nutritional; endocrine; and metabolic disorders (20 sources) Morbid obesity; Translations: [Morbid (severe) obesity due to excess calories] Onset: 06-06-2016 Chronic Other nutritional; endocrine; and metabolic disorders (20 sources) Body mass index 40+ - severely obese; Translations: [Morbid (severe) obesity due to excess calories] Onset: 01-27-2022 01-27-2022 Chronic Other nutritional; endocrine; and metabolic disorders (1 source) Hypermagnesemia; Translations: [Hypermagnesemia] 06-23-2023 Chronic Other nutritional; endocrine; and metabolic disorders (1 source) Hypermagnesemia; Translations: [Hypermagnesemia] Onset: 07-06-2023 Chronic Other screening for suspected conditions (not mental disorders or infectious disease) (1 source) Decreased thyroid stimulating hormone level; Translations: [Other specified abnormal findings of blood chemistry] Episodic Other skin disorders (1 source) Eruption; Translations: [Rash and other nonspecific skin eruption] Episodic Residual codes; unclassified (3 sources) Obstructive sleep apnea syndrome; Translations: [Obstructive sleep apnea (adult) (pediatric)] Chronic Residual codes; unclassified (1 source) Procedure not done; Translations: [Procedure and treatment not carried out, unspecified reason] Episodic Residual codes; unclassified (1 source) Bilateral lower limb edema; Translations: [Localized edema] Episodic Residual codes; unclassified (1 source) Family history of arthritis; Translations: [Family history of rheumatoid arthritis] Onset: 09-01-2023 Episodic Spondylosis; intervertebral disc disorders; other back problems (3 sources) Degeneration of cervical intervertebral disc; Translations: [Other cervical disc degeneration, unspecified cervical region] 06-24-2023 Chronic Spondylosis; intervertebral disc disorders; other back problems (20 sources) Chronic low back pain; Translations: [Lumbago with sciatica, right side] Onset: 11-16-2020 Episodic Thyroid disorders (20 sources) Acquired hypothyroidism; Translations: [Hypothyroidism, unspecified] Onset: 09-03-2022 Chronic Unclassified (1 source) Ventricular tachycardia, nonsustained (HCC); Translations: [Ventricular tachycardia, nonsustained (HCC)] Onset: 02-14-2022 Past or Other Problems Problem Classification Problem Date Documented Da te Episodic/Chronic Cardiac dysrhythmias (20 sources) Palpitations; Translations: [Palpitations] Onset: 12-16-2021 Episodic Conditions associated with dizziness or vertigo (20 sources) Lightheadedness; Translations: [Dizziness and giddiness] Onset: 01-05-2020 01-05-2020 Episodic Immunizations and screening for infectious disease (2 sources) Patient encounter status; Translations: [Encounter for immunization] Onset: 06-22-2023 06-22-2023 Episodic Other and unspecified benign neoplasm (20 sources) Glomus tumor; 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] Onset: 06-27-2010 Episodic Other bone disease and musculoskeletal deformities (1 source) Disorder of bone, unspecified; Translations: [Disorder of bone] Onset: 07-06-2023 Episodic Other connective tissue disease (1 source) Pain in right leg; Translations: [Pain in both lower extremities] Onset: 06-22-2023 Episodic Other connective tissue disease (1 source) Pain in left leg; Translations: [Pain in both lower extremities] Onset: 06-22-2023 Episodic Other inflammatory condition of skin (1 source) Pruritus, unspecified; Translations: [Itching] Onset: 06-22-2023 Episodic Other lower respiratory disease (20 sources) Nodule of lung; Translations: [Solitary pulmonary nodule] Onset: 06-09-2016 Episodic Other lower respiratory disease (20 sources) Dyspnea on exertion; Translations: [Dyspnea, unspecified] Onset: 02-14-2022 Episodic Other skin disorders (20 sources) Pyogenic granuloma; Translations: [Pyogenic granuloma] Onset: 06-27-2010 06-27-2010 Episodic Other skin disorders (1 source) Disorder of pigmentation, unspecified; Translations: [Discoloration of skin of foot] Onset: 11-03-2022 Episodic Other upper respiratory infections (2 sources) Posterior rhinorrhea; Translations: [Postnasal drip] Onset: 06-22-2023 06-22-2023 Episodic Residual codes; unclassified (20 sources) Other specified health status; Translations: [Other drug allergy] Onset: 06-02-2022 Episodic Screening and history of mental health and substance abuse codes (20 sources) Ex-smoker; Translations: [Personal history of nicotine dependence] Onset: 07-10-2021 Episodic Syncope (20 sources) Syncope; Translations: [Syncope and collapse] Onset: 12-16-2021 Episodic Results Test Name Value Interpretation Reference Range Facil ity Vital Signs Date Time Vital Sign Value Performing Clinician Taiwo melara 10-26-2023 11:34-0500 Diastolic blood pressure 86 mm[Hg] Norm Sharif MD Work Phone: [facility] 10-26-2023 11:34-0500 Systolic blood pressure 134 mm[Hg] Norm Sharif MD Work Phone: [facility] 10-26-2023 11:03-0500 Body weight 108.41 kg Norm Sharif MD Work Phone: [facility] 10-26-2023 11:03-0500 Heart rate 66 /min Norm Sharif MD Work Phone: [facility] 10-26-2023 11:03-0500 SaO2% (BldA) [Mass fraction] 96 % Norm Sharif MD Work Phone: [facility] 10-23-2023 09:12-0500 Body height 161.3 cm Reji ROSENTHAL-C Work Phone: [facility] 10-23-2023 09:12-0500 Body weight 108 kg Reji ROSENTHAL-C Work Phone: [facility] 10-23-2023 09:12-0500 Diastolic blood pressure 61 mm[Hg] Reji ROSENTHAL-C Work Phone: [facility] 10-23-2023 09:12-0500 Heart rate 65 /min Reji ROSENTHAL-C Work Phone: [facility] 10-23-2023 09:12-0500 SaO2% (BldA) [Mass fraction] 97 % Reji NAVASC Work Phone: [facility] 10-23-2023 09:12-0500 Systolic blood pressure 147 mm[Hg] Reji ROSENTHAL-C Work Phone: [facility] 07-27-2023 16:10-0500 Body weight 107.96 kg Reji Prakash MD Work Phone: [facility] 07-27-2023 16:10-0500 Diastolic blood pressure 77 mm[Hg] Reji Prakash MD Work Phone: [facility] 07-27-2023 16:10-0500 Heart rate 72 /min Reji Prakash MD Work Phone: [facility] 07-27-2023 16:10-0500 SaO2% (BldA) [Mass fraction] 98 % Reji Prakash MD Work Phone: [facility] 07-27-2023 16:10-0500 Systolic blood pressure 146 mm[Hg] Reji Prakash MD Work Phone: [facility] 07-24-2023 13:52-0500 Body weight 107.5 kg NA Kerns PA-C Work Phone: [facility] 07-24-2023 13:52-0500 Diastolic blood pressure 76 mm[Hg] NA Kerns PA-C Work Phone: [facility] 07-24-2023 13:52-0500 Heart rate 68 /min NA Kerns PA-C Work Phone: [facility] 07-24-2023 13:52-0500 Respiratory rate 16 /min NA Kerns PA-C Work Phone: [facility] 07-24-2023 13:52-0500 SaO2% (BldA) [Mass fraction] 97 % NA Kerns PA-C Work Phone: [facility] 07-24-2023 13:52-0500 Systolic blood pressure 128 mm[Hg] NA Kerns PA-C Work Phone: [facility] 06-22-2023 10:48-0400 Diastolic blood pressure 86 mm[Hg] Norm Sharif MD Work Phone: [facility] 06-22-2023 10:48-0400 Systolic blood pressure 138 mm[Hg] Norm Sharif MD Work Phone: [facility] 06-22-2023 10:29-0400 Body weight 107.5 kg Norm Sharif MD Work Phone: [facility] 06-22-2023 10:29-0400 Heart rate 67 /min Norm Sharif MD Work Phone: [facility] 06-22-2023 10:29-0400 SaO2% (BldA) [Mass fraction] 97 % Nomr Sharif MD Work Phone: [facility] 02-09-2023 08:57-0400 Body weight 107.05 kg Reji Prakash MD Work Phone: [facility] 02-09-2023 08:57-0400 Diastolic blood pressure 84 mm[Hg] Reji Prakash MD Work Phone: [facility] 02-09-2023 08:57-0400 Heart rate 58 /min Reji Prakash MD Work Phone: [facility] 02-09-2023 08:57-0400 SaO2% (BldA) [Mass fraction] 98 % Reji Prakash MD Work Phone: [facility] 02-09-2023 08:57-0400 Systolic blood pressure 132 mm[Hg] Reji Prakash MD Work Phone: [facility] 12-31-2022 11:13-0400 Body temperature 97.2 [degF] Iza Madyson SALES ORDER ADMINISTRATOR.RN SURGERY Work Phone: [facility] 12-31-2022 11:13-0400 Body weight 110.68 kg Iza Madyson SALES ORDER ADMINISTRATOR.RN SURGERY Work Phone: [facility] 12-31-2022 11:13-0400 Diastolic blood pressure 80 mm[Hg] Iza Madyson SALES ORDER ADMINISTRATOR.RN SURGERY Work Phone: [facility] 12-31-2022 11:13-0400 Heart rate 82 /min Iza Madyson SALES ORDER ADMINISTRATOR.RN SURGERY Work Phone: [facility] 12-31-2022 11:13-0400 Respiratory rate 18 /min Iza Madyson SALES ORDER ADMINISTRATOR.RN SURGERY Work Phone: [facility] 12-31-2022 11:13-0400 SaO2% (BldA) [Mass fraction] 95 % Iza Madyson SALES ORDER ADMINISTRATOR.RN SURGERY Work Phone: [facility] 12-31-2022 11:13-0400 Systolic blood pressure 130 mm[Hg] Iza Coughlin APRN.RN SURGERY Work Phone: [facility] 12-17-2022 10:58-0400 Diastolic blood pressure 82 mm[Hg] Norm Sharif MD Work Phone: [facility] 12-17-2022 10:58-0400 Systolic blood pressure 138 mm[Hg] Norm Sharif MD Work Phone: [facility] 12-17-2022 10:32-0400 Body weight 107.05 kg Norm Sharif MD Work Phone: [facility] 12-17-2022 10:32-0400 Heart rate 58 /min Norm Sharif MD Work Phone: [facility] 12-17-2022 10:32-0400 Respiratory rate 18 /min Norm Sharif MD Work Phone: [facility] 12-17-2022 10:32-0400 SaO2% (BldA) [Mass fraction] 98 % Norm Sharif MD Work Phone: [facility] 10-20-2022 15:56-0500 Diastolic blood pressure 75 mm[Hg] Mi Nurse Work Phone: [facility] 10-20-2022 15:56-0500 Heart rate 57 /min Mi Nurse Work Phone: [facility] 10-20-2022 15:56-0500 Systolic blood pressure 150 mm[Hg] Mi Nurse Work Phone: [facility] 10-06-2022 13:15-0500 Body height 160 cm Reji Prakash MD Work Phone: [facility] 10-06-2022 13:15-0500 Body weight 107.96 kg Reji Prakash MD Work Phone: [facility] 10-06-2022 13:15-0500 Diastolic blood pressure 76 mm[Hg] Reji Prakash MD Work Phone: [facility] 10-06-2022 13:15-0500 Heart rate 78 /min Reji Prakash MD Work Phone: [facility] 10-06-2022 13:15-0500 Respiratory rate 20 /min Reji Prakash MD Work Phone: [facility] 10-06-2022 13:15-0500 SaO2% (BldA) [Mass fraction] 97 % Reji Prakash MD Work Phone: [facility] 10-06-2022 13:15-0500 Systolic blood pressure 152 mm[Hg] Reji Prakash MD Work Phone: [facility] 10-02-2022 12:45-0500 Body height 160 cm Deven Chavez MD Work Phone: [facility] 10-02-2022 12:45-0500 Body temperature 97.39 [degF] Deven Chavez MD Work Phone: [facility] 10-02-2022 12:45-0500 Body weight 107.78 kg Deven Chavez MD Work Phone: [facility] 10-02-2022 12:45-0500 Diastolic blood pressure 82 mm[Hg] Deven Chavez MD Work Phone: [facility] 10-02-2022 12:45-0500 Heart rate 77 /min Deven Chavez MD Work Phone: [facility] 10-02-2022 12:45-0500 SaO2% (BldA) [Mass fraction] 97 % Deven Chavez MD Work Phone: [facility] 10-02-2022 12:45-0500 Systolic blood pressure 130 mm[Hg] Deven Chavez MD Work Phone: [facility] 09-17-2022 11:12-0500 Body weight 107.5 kg Norm Sharif MD Work Phone: [facility] 09-17-2022 11:12-0500 Diastolic blood pressure 92 mm[Hg] Norm Sharif MD Work Phone: [facility] 09-17-2022 11:12-0500 Heart rate 72 /min Norm Sharif MD Work Phone: [facility] 09-17-2022 11:12-0500 SaO2% (BldA) [Mass fraction] 100 % Norm Sharif MD Work Phone: [facility] 09-17-2022 11:12-0500 Systolic blood pressure 162 mm[Hg] Norm Sharif MD Work Phone: [facility] 09-10-2022 14:53-0500 Body weight 107.96 kg Norm Sharif MD Work Phone: [facility] 09-10-2022 14:53-0500 Diastolic blood pressure 82 mm[Hg] Norm Sharif MD Work Phone: [facility] 09-10-2022 14:53-0500 Heart rate 72 /min Norm Sharif MD Work Phone: [facility] 09-10-2022 14:53-0500 SaO2% (BldA) [Mass fraction] 99 % Norm Sharif MD Work Phone: [facility] 09-10-2022 14:53-0500 Systolic blood pressure 142 mm[Hg] Norm Sharif MD Work Phone: [facility] 08-27-2022 10:58-0500 Body height 160 cm Norm Sharif MD Work Phone: [facility] 08-27-2022 10:58-0500 Body temperature 99.39 [degF] Norm Sharif MD Work Phone: [facility] 08-27-2022 10:58-0500 Body weight 107.96 kg Norm Sharif MD Work Phone: [facility] 08-27-2022 10:58-0500 Diastolic blood pressure 78 mm[Hg] Norm Sharif MD Work Phone: [facility] 08-27-2022 10:58-0500 Heart rate 79 /min Norm Sharif MD Work Phone: [facility] 08-27-2022 10:58-0500 SaO2% (BldA) [Mass fraction] 96 % Norm Sharif MD Work Phone: [facility] 08-27-2022 10:58-0500 Systolic blood pressure 158 mm[Hg] Norm Sharif MD Work Phone: [facility] 06-02-2022 11:28-0400 Body weight 105.69 kg Reji Prakash MD Work Phone: [facility] 06-02-2022 11:28-0400 Diastolic blood pressure 76 mm[Hg] Reji Prakash MD Work Phone: [facility] 06-02-2022 11:28-0400 Heart rate 72 /min Reji Prakash MD Work Phone: [facility] 06-02-2022 11:28-0400 SaO2% (BldA) [Mass fraction] 98 % Reji Prakash MD Work Phone: [facility] 06-02-2022 11:28-0400 Systolic blood pressure 150 mm[Hg] Reji Prakash MD Work Phone: [facility] 03-31-2022 15:28-0400 Body weight 104.78 kg Kori Palm SALES ORDER ADMINISTRATOR.RN SURGERY Work Phone: [facility] 03-31-2022 15:28-0400 Diastolic blood pressure 80 mm[Hg] Kori Palm SALES ORDER ADMINISTRATOR.RN SURGERY Work Phone: [facility] 03-31-2022 15:28-0400 Heart rate 60 /min Kori Palm SALES ORDER ADMINISTRATOR.RN SURGERY Work Phone: [facility] 03-31-2022 15:28-0400 Systolic blood pressure 130 mm[Hg] Kori Palm SALES ORDER ADMINISTRATOR.RN SURGERY Work Phone: [facility] 03-02-2022 12:42-0400 Body temperature 97.39 [degF] Charles Glez SALES ORDER ADMINISTRATOR.RN SURGERY Work Phone: [facility] 03-02-2022 12:42-0400 Body weight 105.87 kg Charles Pendlebury SALES ORDER ADMINISTRATOR.RN SURGERY Work Phone: [facility] 03-02-2022 12:42-0400 Diastolic blood pressure 72 mm[Hg] Charles Chulabury SALES ORDER ADMINISTRATOR.RN SURGERY Work Phone: [facility] 03-02-2022 12:42-0400 Heart rate 67 /min Charles Glez SALES ORDER ADMINISTRATOR.RN SURGERY Work Phone: [facility] 03-02-2022 12:42-0400 Respiratory rate 18 /min [facility] SALES ORDER ADMINISTRATOR.RN SURGERY Work Phone: [facility] 03-02-2022 12:42-0400 SaO2% (BldA) [Mass fraction] 97 % Charles Glez SALES ORDER ADMINISTRATOR.RN SURGERY Work Phone: [facility] 03-02-2022 12:42-0400 Systolic blood pressure 128 mm[Hg] Charles Glez SALES ORDER ADMINISTRATOR.RN SURGERY Work Phone: [facility] 02-20-2022 10:37-0400 Body weight 104.33 kg Norm Sharif MD Work Phone: [facility] 02-20-2022 10:37-0400 Diastolic blood pressure 82 mm[Hg] Norm Sharif MD Work Phone: [facility] 02-20-2022 10:37-0400 Heart rate 64 /min Norm Sharif MD Work Phone: [facility] 02-20-2022 10:37-0400 Systolic blood pressure 122 mm[Hg] Norm Sharif MD Work Phone: [facility] 12-16-2021 14:06-0400 Body height 161.3 cm Reji Prakash MD Work Phone: [facility] 12-16-2021 14:06-0400 Body weight 106.59 kg Reji Prakash MD Work Phone: [facility] 12-16-2021 14:06-0400 Diastolic blood pressure 72 mm[Hg] Reji Prakash MD Work Phone: [facility] 12-16-2021 14:06-0400 Heart rate 63 /min Reji Prakash MD Work Phone: [facility] 12-16-2021 14:06-0400 SaO2% (BldA) [Mass fraction] 97 % Reji Prakash MD Work Phone: [facility] 12-16-2021 14:06-0400 Systolic blood pressure 126 mm[Hg] Reji Prakash MD Work Phone: [facility] 12-09-2021 14:21-0400 Body height 162.6 cm Pacc 1 Work Phone: [facility] 12-09-2021 14:21-0400 Body temperature 97.7 [degF] Pacc 1 Work Phone: [facility] 12-09-2021 14:21-0400 Body weight 106.14 kg Pacc 1 Work Phone: [facility] 12-09-2021 14:21-0400 Diastolic blood pressure 58 mm[Hg] Pacc 1 Work Phone: [facility] 12-09-2021 14:21-0400 Heart rate 71 /min Pacc 1 Work Phone: [facility] 12-09-2021 14:21-0400 Respiratory rate 20 /min Pacc 1 Work Phone: [facility] 12-09-2021 14:21-0400 SaO2% (BldA) [Mass fraction] 97 % Pacc 1 Work Phone: [facility] 12-09-2021 14:21-0400 Systolic blood pressure 122 mm[Hg] Pacc 1 Work Phone: [facility] Encounters Encounter Date Encounter Type Care Provider Facility Start: 10-26-2023 End: 10-26-2023 ambulatory NORM SHARIF Facility:[facility] Start: 10-26-2023 End: 10-26-2023 Patient encounter procedure Norm Sharif MD Work Phone: [facility] Procedures Date Procedure Procedure Detail Performing Clinician Start: 06-22-2023 INFLUENZA VACCINE, P RSV FREE, AGE 65+ YR, HIGH DOSE, QUADRIVALENT (FLUZONE HIGH-DOSE) Norm Sharif MD Work Phone: Start: 03-02-2023 Radiologic exam knee complete 4/more views Kapil Yadav MD Work Phone: Start: 09-11-2022 Inf agent det nuclei c acid clostridium amp probe Norm Sharif MD Work Phone: Start: 04-16-2022 Duplex scan extracra nial art compl bi study Kori Gill Arpita SALES ORDER ADMINISTRATOR.RN SURGERY Work Phone: Start: 03-07-2022 Radiologic exam knee complete 4/more views Micheline Vepeggyvibecka PA-C Work Phone: Start: 02-20-2022 Adult depression scr eening assessment Norm Sharif MD Work Phone: Start: 01-06-2022 Radiologic exam knee complete 4/more views Micheline Vetovitz PA-C Work Phone: Start: 07-10-2021 Antibody screen Plan of Treatment Date Care Activity Detail Author Start: 07-06-2026 [facility]: 06-08-2026 [facility] Start: 09-10-2025 DIABETES SCREEN DIABETES SCREEN [facility] Start: 09-10-2025 Diabetes Scre[address] Diabetes Screenin [facility] Start: 08-27-2025 DIABETES SCREEN DIABETES SCREEN [facility] Start: 08-22-2025 DIABETES SCREEN DIABETES SCREEN [facility] Start: 05-07-2025 DIABETES SCREEN DIABETES SCREEN [facility] Start: 04-28-2025 DIABETES SCREEN DIABETES SCREEN [facility] Start: 02-04-2025 DIABETES SCREEN DIABETES SCREEN [facility] Start: 12-25-2024 DIABETES SCREEN DIABETES SCREEN [facility] Start: 12-09-2024 DIABETES SCREEN DIABETES SCREEN [facility] Start: 09-01-2024 Covid-19 Vaccine () Covid-19 Vaccine () [facility] Immunizations Immunization Date Immunization Notes Care Provider Dagmar breen 06-22-2023 influenza (HD-IIV4) vaccine, age 65+ yr, high dose, quadrivalent, PF (FLUZONE HIGH-DOSE) Norm Sharif MD Work Phone: [facility] 04-19-2021 COVID-19 vaccine, ag e 12+ yr (PFIZER-BIONTECH - PURPLE TOP) Pacc 1 Work Phone: [facility] 03-26-2021 COVID-19 vaccine, ag e 12+ yr (PFIZER-BIONTECH - PURPLE TOP) Pacc 1 Work Phone: [facility] 05-26-2019 influenza, high dose seasonal, preservative-free Pacc 1 Work Phone: [facility] 05-26-2019 influenza virus vacc ine, unspecified formulation Phuong Chowdary RN Work Phone: [facility] 05-25-2018 influenza, high dose seasonal, preservative-free Pacc 1 Work Phone: [facility] 07-28-2017 influenza, high dose seasonal, preservative-free Pacc 1 Work Phone: [facility] 05-26-2016 influenza, high dose seasonal, preservative-free Pacc 1 Work Phone: [facility] 10-29-2015 pneumococcal conjuga te vaccine, 13 valent Pacc 1 Work Phone: [facility] 06-02-2014 influenza, seasonal, injectable Pacc 1 Work Phone: [facility] 06-21-2013 influenza virus vacc ine, unspecified formulation Pacc 1 Work Phone: [facility] 05-14-2012 influenza virus vacc ine, unspecified formulation Pacc 1 Work Phone: [facility] Work Phone: 07-19-2008 pneumococcal polysaccharide vaccine, 23 valent Pacc 1 Work Phone: [facility] Work Phone: Payers Date Payer Category Payer Medicare [employer] MEDICARE HU[employer] MEDICARE PPO [id number] 2021-Present [phone] [address] [address] [place] [address] PPO [id number] 2018 Medicare [id number] 2018 Medicare [id number] 1940 Unknown [id number] Social History Date Type Detail Facility Start: 11-08-2020 End: 04-22-2022 Tobacco smoking status NHIS Ex-smoker [facility] Work Phone: End: 11-08-2000 History of tobacco use Current smoker [facility] End: 11-08-2000 History of tobacco use Cigarette Smoker [facility] Start: 12-09-2021 End: 10-26-2023 Alcohol intake Current non-drinker of alcohol (finding) [facility] Start: 05-28-2020 End: 11-01-2020 History SDOH Alcohol Frequency 1 [facility] Start: 01-25-2020 End: 05-28-2020 History SDOH Alcohol Std Drinks 98 [facility] Start: 01-25-2020 End: 11-01-2020 History SDOH Social Connections Phone 2 [facility] Start: 01-03-2020 End: 01-25-2020 History SDOH Social Connections Sabianism 3 [facility] Start: 01-03-2020 End: 01-25-2020 History SDOH Social Connections Living 4 [facility] Start: 01-03-2020 Education 12 [facility] Start: 12-31-2006 End: 04-22-2022 Tobacco Comment 2004 quit [facility] Start: 1940 Sex Assigned At Female [facility] Start: 11-29-2021 End: 07-14-2022 Exposure to SARS-CoV-2 (event) Not sure [facility] Start: 11-08-2020 End: 02-09-2023 Cigarettes smoked current (pack per day) - Reported 0.5 [facility] Work Phone: Start: 11-08-2020 End: 04-22-2022 Tobacco use and exposure Smokeless tobacco non-user [facility] Work Phone: Start: 02-09-2023 End: 03-02-2023 Tobacco use panel [facility] Work Phone: Adult Depression Screening Assessment 0 [facility] Work Phone: Start: 05-08-2021 Gender identity Identifies as female gender (finding) [facility] Do you belong to any clubs or organizations such as religion groups, [employer], [employer]ingp[employer]on or athletic groups, or school groups? Yes [facility] Are you now , , , , never or living with a partner? [facility] How often to you hav e a drink containing alcohol? Never [facility] Work Phone: How hard is it for y ou to pay for the very basics like food, housing, medical care, and heating Not very hard [facility] Do you feel stress - tense, restless, nervous, or anxious, or unable to sleep at night because your mind is troubled all the time - these days [OSQ] To some extent [facility] (I/We) worried wherobby er (my/our) food would run out before (I/we) got money to buy more. Never true [facility] In the past 12 month s, was there a time when you were not able to pay the mortgage or rent on time? No [facility] Medical Equipment Procedure Code Equipment Code Equipment Origin al Text Equipment Identifier Dates Liner Mdm 42mm E Cocr Acetabular 2 Mobility Modular Hip - [id number] Start: 07-17-2021 Head V40 28mm 0m m Offset Taper Biolox Delta Femoral Hip - [id number] Start: 07-17-2021 Insert Adm Mobil e Bearing Hip Islam 48mm 28mm 0d X3 6.9mm Acetabular - [id number] Start: 07-17-2021 Shell Trident Ii 52mm E Tritanium Acetabular 5 Screw Hole Cluster Sterile - [id number] Start: 07-17-2021 Stem Accolade Ii 3 132d Femoral - [id number] Start: 07-17-2021 Screw Trident Ii 6.5mm 25mm Bone Low Profile Hexagonal Sterile - [id number] Start: 07-17-2021 Cement Simplex B one High Viscosity - [id number] Start: 12-25-2021 Component Triath selene 5 Femoral Cruciate Retain Cemented Knee Right - [id number] Start: 12-25-2021 Insert Triathlon 4 11mm Tibial Bearing Condylar Stabilize Sterile Knee [id number] Start: 12-25-2021 Component Triath selene 35mm 10mm Patellar Asymmetric Knee - [id number] Start: 12-25-2021 Baseplate Triath selene 4 [place] Cocr Tibial Total Stabilize Cemented Knee - [id number] Start: 12-25-2021 Goals Date Patient Goal Desired Activity /State Personal health goal Clinical Notes 09-30-2013 to 10-26-2023 Norm Sharif MD - 10/26/2023 11:05 AM Reji Toscano PA-C - 10/23/2023 8:57 AM Darlene Alonso RN - 10/14/2023 11:27 AM Darlene Alonso RN - 08/19/2023 10:49 AM EST Note Date & Type Note Facility 10-26-2023 Note HNO ID: [id number] Author: NORM SHARIF MD Service: ? Author Type: Physician Type: Progress Notes Filed: 10/26/2023 11:38 Note Text: Patient presents with: Follow Up HPI: Patient presents today for office visit for follow up. Saw spine for back. Since not having pain not much to do. Her complaint is weakness. Sees [facility] coming up soon. Will be seein Dr Martin. Again offered neurologist or neurosurgeon. She would prefer to wait until she sees rheumatology. She would like to resume therapy. No falls. No new chest pain. She feels more winded when she exerts herself. She thinks it is related to doing as much. She wants to wait to work it up. Red flags for re-assessment reviewed with patient in detail. Sees cardiology in the next month. Does bruise easily is on eliquis. Does not recall an injury. No new headache. No focal numbness other than some finger tingling that the left hand. The last few weeks. Worse when raises hand. If she changes position goes away. Has had on and off in the past. Has had carpal tunnel in the past She thinks it is arthritic. See te: Hip xray was negative. 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 We had been following her elevated inflammatory markers. Her polyarthralgia we had seen her before for had improved with stopping her zetia. Stopping the zetia in hind sight believes did not help her. She feels her polyarthralgia is worse again. Has issues tolerating steroids. Has issues with hand pain. Some shoulder pain as well. Has dry eyes. No issues with dry eyes. Her mother had RA. Wants to hold on further meds for now. Has widespread muscle pain. Currently: still using the cane. Has not been back to physical therapy. Feels it is irritating her muscles. Still has pain in both thighs. Does get pain down the left leg now. At times can be numb in the legs. No new issues with bowel or bladder. Still with back pain. Some mild achiness of her arms. No neck pain. No numbness or weakness. See previous hpi: HPI: Patient presents today for office visit for left hip pain that started on Thursday07/29/23. Pain is from hip to groin. Woke up that morning fine. Pain started in afternoon. No fall or injury. No lifting, pushing or pulling of any heavy objects. Pain is persistent and has gotten worse. Now to the point where she can't hardly lift her leg. Hurts to walk and put pressure on it. Ambulating with cane. Prior to , she felt much better. Stopping the zetia seems to have helped with her myalgias. The therapy had been helping as well. Overall only her legs were bothering her and had improved. Saw PT yesterday and was advised to see PCP. Was not able to participate in much of PT exercises except use of recumbent bike. No falls. Feels similar to hip issues she had prior to replacement a few years ago. Can bear weight. No numbness or weakness. Is mostly in the groin. No swelling in the leg. No issues controlling bowel or bladder. Has to find a certain position to get better. Took tylenol once this week before bed but didn't notice relief. Has not tried any other OTC meds. MEDICATIONS: Current Outpatient Medications Medication Sig apixaban (ELIQUIS) 5 mg tab(s) Take 1 tablet by mouth two times a day. metoprolol succinate ER (TOPROL XL) 25 mg 24 hr tablet Take 1 tablet by mouth once daily. ezetimibe (ZETIA) 10 mg tablet Take 1 tablet by mouth once daily. HOLD 07/24/2023 hydroCHLOROthiazide 25 mg tablet Take 1 tablet by mouth once daily. levothyroxine (LEVOXYL) 112 mcg tablet Take 1 tablet by mouth once daily. Take on empty stomach. For thyroid. lisinopril (ZESTRIL) 40 mg tablet Take 1 tablet by mouth once daily. CPAP Initiate Auto PAP @ 5-20 cm of water with humidification. Mask (per patient preference) optional chin strap (if indicated) , filters, tubing, humidifier and lifetime supplies. aspirin, enteric coated (ECOTRIN LOW STRENGTH) 81 mg EC tablet Take 1 tablet by mouth twice daily. (Patient taking differently: Take 81 mg by mouth two times a day. Once daily) fluticasone (FLONASE) 50 mcg/actuation nasal spray Use 2 Sprays in each nostril once daily. Rinse mouth after use. acetaminophen (TYLENOL) 500 mg tablet Take 2 tablets by mouth every 8 hours as needed for pain. multivitamin tablet Take 1 tablet by mouth once daily. (Patient not taking: Reported on 10/23/2023) No current facility-administered medications for this visit. ALLERGIES: ALLERGIES Allergen Reactions Nsaids (Non-Steroid* Other: See Comments Pt. states has cautioned her not to use due to kidney disease Qkyjcnz-Xob-Yqi Red* Myalgia PAST MEDICAL HISTORY Diagnosis Date Diarrhea Generalized osteoarthrosis, unspecified site HTN (hypertension) Lung nodule repeat ct in spring, benign Other and unspecified hyperlipidemia Rectal bleeding PAST SURGICAL HISTORY Procedure Laterality Date COLON (more content not included)... [facility] 10-26-2023 History of Present illness Narrative Patient presents with: Follow Up HPI: Patient presents today for office visit for follow up. Saw spine for back. Since not having pain not much to do. Her complaint is weakness. Sees [facility] coming up soon. Will be seein Dr Martin. Again offered neurologist or neurosurgeon. She would prefer to wait until she sees rheumatology. She would like to resume therapy. No falls. No new chest pain. She feels more winded when she exerts herself. She thinks it is related to doing as much. She wants to wait to work it up. Red flags for re-assessment reviewed with patient in detail. Sees cardiology in the next month. Does bruise easily is on eliquis. Does not recall an injury. No new headache. No focal numbness other than some finger tingling that the left hand. The last few weeks. Worse when raises hand. If she changes position goes away. Has had on and off in the past. Has had carpal tunnel in the past She thinks it is arthritic. See te: Hip xray was negative. 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 We had been following her elevated inflammatory markers. Her polyarthralgia we had seen her before for had improved with stopping her zetia. Stopping the zetia in hind sight believes did not help her. She feels her polyarthralgia is worse again. Has issues tolerating steroids. Has issues with hand pain. Some shoulder pain as well. Has dry eyes. No issues with dry eyes. Her mother had RA. Wants to hold on further meds for now. Has widespread muscle pain. Currently: still using the cane. Has not been back to physical therapy. Feels it is irritating her muscles. Still has pain in both thighs. Does get pain down the left leg now. At times can be numb in the legs. No new issues with bowel or bladder. Still with back pain. Some mild achiness of her arms. No neck pain. No numbness or weakness. See previous hpi: HPI: Patient presents today for office visit for left hip pain that started on Thursday07/29/23. Pain is from hip to groin. Woke up that morning fine. Pain started in afternoon. No fall or injury. No lifting, pushing or pulling of any heavy objects. Pain is persistent and has gotten worse. Now to the point where she can't hardly lift her leg. Hurts to walk and put pressure on it. Ambulating with cane. Prior to Thanksgiving, she felt much better. Stopping the zetia seems to have helped with her myalgias. The therapy had been helping as well. Overall only her legs were bothering her and had improved. Saw PT yesterday and was advised to see PCP. Was not able to participate in much of PT exercises except use of recumbent bike. No falls. Feels similar to hip issues she had prior to replacement a few years ago. Can bear weight. No numbness or weakness. Is mostly in the groin. No swelling in the leg. No issues controlling bowel or bladder. Has to find a certain position to get better. Took tylenol once this week before bed but didn't notice relief. Has not tried any other OTC meds. MEDICATIONS: Current Outpatient Medications Medication Sig apixaban (ELIQUIS) 5 mg tab(s) Take 1 tablet by mouth two times a day. metoprolol succinate ER (TOPROL XL) 25 mg 24 hr tablet Take 1 tablet by mouth once daily. ezetimibe (ZETIA) 10 mg tablet Take 1 tablet by mouth once daily. HOLD 07/24/2023 hydroCHLOROthiazide 25 mg tablet Take 1 tablet by mouth once daily. levothyroxine (LEVOXYL) 112 mcg tablet Take 1 tablet by mouth once daily. Take on empty stomach. For thyroid. lisinopril (ZESTRIL) 40 mg tablet Take 1 tablet by mouth once daily. CPAP Initiate Auto PAP @ 5-20 cm of water with humidification. Mask (per patient preference) optional chin strap (if indicated) , filters, tubing, humidifier and lifetime supplies. aspirin, enteric coated (ECOTRIN LOW STRENGTH) 81 mg EC tablet Take 1 tablet by mouth twice daily. (Patient taking differently: Take 81 mg by mouth two times a day. Once daily) fluticasone (FLONASE) 50 mcg/actuation nasal spray Use 2 Sprays in each nostril once daily. Rinse mouth after use. acetaminophen (TYLENOL) 500 mg tablet Take 2 tablets by mouth every 8 hours as needed for pain. multivitamin tablet Take 1 tablet by mouth once daily. (Patient not taking: Reported on 10/23/2023) No current facility-administered medications for this visit. ALLERGIES: ALLERGIES Allergen Reactions Nsaids (Non-Steroid* Other: See Comments Pt. states has cautioned her not to use due to kidney disease Rlezsql-Cka-Dzd Red* Myalgia PAST MEDICAL HISTORY Diagnosis Date Diarrhea Generalized osteoarthrosis, unspecified site HTN (hypertension) Lung nodule repeat ct in spring, benign Other and unspecified hyperlipidemia Rectal bleeding PAST SURGICAL HISTORY Procedure Laterality Date COLONOSCOPY 08/26/2005 [facility] - scattered tic EGD 08/26/2005 [facility] - normal PAST SURGICAL HISTORY OF Right carpal tunnel on the right hand PAST SURGICAL HISTORY OF Right arthoscopy on the right knee PAST SURGICAL HISTORY OF Right 01/2016 ORIF right ankle, 2 small screws remain by Dr. Bedoya PAST SURGICAL HISTORY OF N/A 01/2023 Dental work. Extracted all teeth, dentures now in place. TOTAL HIP REPLACEMENT Left 07/17/2021 Left total hip arthroplasty TOTAL KNEE REPLACEMENT Right 12/25/2021 Right total knee replacement UNSPECIFIED ORAL SURGERY PROCEDURE, BY REPORT wisdom teeth removed. FAMILY HISTORY Problem Relation Age of Onset Heart Mother Hypertension Mother Hypertension Father Renal Disease Father Asthma No Family History COPD No Family History Social History Tobacco Use Smoking status: Former Packs/day: 0.50 Years: 20.00 Additional pack years: 0.00 Total pack years: 10.00 Types: Cigarettes Quit date: 11/08/2000 Years since quittin.9 Smokeless tobacco: Never Tobacco comments: 2003 quit Vaping Use Vaping Use: Never used Substance Use Topics Alcohol use: No Drug use: No Reviewed current medications, allergies, past medical history, surgical history, family history and social history today. REVIEW OF SYSTEMS All other reviewed and negative other than HPI. HEALTH MAINTENANCE: Reviewed health maintenance issues today and recommended the following in detail. Advance Directive Discussion -daughter is dpoa. Depression Assessment due on 09/07/2023 VITALS: BP 134/86 Pulse 66 Wt 108.4 kg (239 lb) SpO2 96% BMI 41.67 kg/m Last 4 Encounter Wt Readings: Date: Wt: 10/23/2023 108 kg (238 lb 1.6 oz) 09/01/2023 107.3 kg (236 lb 9.6 oz) 08/04/2023 107.8 kg (237 lb 9.6 oz) 07/27/2023 108 kg (238 lb) PHYSICAL EXAMINATION: General appearance: Well appearing, alert, in no acute distress, well-hydrated, well nourished. Skin: Skin color, texture, turgor normal, no suspicious rashes or lesions Lungs: Lungs clear to auscultation. No wheezing, rhonchi, rales Heart: RRR without murmur, gallop, or rubs. No ectopy Abdomen: Normal abdominal exam, Abdomen soft, non-tender. Bowel sounds normal. No masses, organomegaly Extremities: No deformities, edema, skin discoloration, clubbing or cyanosis. Good capillary refill. , bruising on left hand. Peripheral pulses: Normal Neuro: Negative. ASSESSMENT/PLAN: 1. Polyarthralgia - ICD9: 719.49, ICD10: M25.50 (primary diagnosis) - can resume physical therapy when interested. Wants to see rheum first. 2. Spinal stenosis of lumbar region, unspecified whether neurogenic claudication present - ICD9: 724.02, ICD10: M48.061 - offered neuro or neurosurgery. Will onsider. 3. Ecchymosis - ICD9: 459.89, ICD10: R58 - heat. Red flags for re-assessment reviewed with patient in detail. - Call if symptoms worsen at all or if not better in one to two weeks Norm Sharif MD documented in this encounter [facility] 10-23-2023 Note HNO ID: [id number] Author: REJI BARKSDALE PA-C Service: ? Author Type: Physician Electronic Resources Librarian Type: Progress Notes Filed: 10/23/2023 10:16 Note Text: Reji Barksdale PA-C [facility] [address] [place] [address] [place] [address] 10/23/2023 ASSESSMENT AND PLAN: Assessment : Encounter Diagnosis ICD-10-CM 1. Spinal stenosis of lumbar region, unspecified whether neurogenic claudication present M48.061 2. Morbid obesity due to excess calories (HCC) E66.01 Discussion: Ms. Gonzalez is a very pleasant 83-year-old female brought in to the office today by her son. The patient is here for evaluation of bilateral gradual lower extremity weakness noted over a number of years gradually worsening. She tried physical therapy a couple months ago and tried to work very hard in it but seem to not get any better and felt that maybe she even became slightly weaker as a result. She uses a cane in her right hand to help her get around. She does have some separate LEFT groin area pain and anterior left thigh pain. She comes in with a new MRI scan and recent lumbar plain radiographs. She underwent LEFT RACHEL about 2 and half years ago and recently saw her orthopedist who indicated that the hip replacement does look very good. EXAM Highlights: She is quite slow to mobilize from sitting to standing posture and she tends to lean slightly forward as she walks. She leans on her cane in the right hand fairly heavily and take short steps slightly favoring the left Low back motion is not fully tested during today's visit because she is unstable/unsteady on her feet. She does not have any point tenderness to the low back or bony prominences of the pelvis I cannot detect focal weakness in lower extremities She is hyporeflexic throughout bilateral lower extremities and there is no positivity to Babinski's. Clonus is normal. IMAGING: We spent a lengthy time reviewing her MRI study and x-rays. She has very severe degenerative findings throughout the lumbar region at every level. She has severe stenosis at L to 3, L3-4, L4-5 and to a little lesser extent at L5-S1. At L2-3 on the left, there appears to be a facet cyst but it is not specifically noted by the radiologist. This may be the one thing that correlates most closely with her left groin and anterior thigh radiating symptoms SUMMARY/PLAN: We also had a lengthy discussion regarding the fact that her pain and overall symptoms are MUCH less than expected based on the findings of the x-rays and MRI study. I offered consideration of LEFT L2-3 TFESI to try to address the left groin pain and anterior thigh pain I offered consideration of gabapentin I offered neurosurgical consultation In the end, decision was made to hold off on all of the above. Somehow, she is just not symptomatic enough to want to do anything about these treatment options right now. We discussed the importance of weight loss in context of overall spine health She will let me know if she would like to consider any of the above options that we discussed. It seems that her main thing that drives her decision will end up being her day-to-day functioning level and strength rather than her pain. Plan : ACTIVITY RECOMMENDATIONS: -The patient is encouraged to avoid bed rest and maintain normal activity. NUTRITION RECOMMENDATIONS: -The patient is carrying a significant amount of weight above an ideal BMI. We discussed how this impacts overall health and back pain. FOLLOW-UP: -The patient is instructed to return as needed. This document has been created with the use of voice recognition technology. It may contain inaccuracies: (e.g. misspellings, inaccurate syntax or word sense) that have escaped review. Time spent: 45 minutes today with this patient visit. This includes uhrh-ep-[id number] time, review of chart records regarding conservative care history, spine-pertinent imaging, and communication/care coordination with referring provider, problem-specific history-taking and counseling/education regarding treatment options. cc: Norm Sharif [id number] [facility] [id number] Results of consultation to be transmitted via electronic medical record for those providers who practice within [facility] or with access to [facility] via [facility], or via letter. ____ ################################## ################################## #### CHIEF COMPLAINT: Patient is here for both legs pain but left is worse. Has this pain for years and it is getting worse. Pain starts in the left groin and goes down to the leg. When she is walking, or do something she will have weakness in the both legs. Also if she's moves wrong, or do something sudden then she will be in pain. And pain in the both knees. No pain at this moment. (more content not included)... [facility] 10-23-2023 History of Present illness Narrative Images from the original note were not included. Reji Barksdale PA-C [facility] [address] [facility] [address] [place] [address] 10/23/2023 ASSESSMENT AND PLAN: Assessment : Encounter Diagnosis ICD-10-CM 1. Spinal stenosis of lumbar region, unspecified whether neurogenic claudication present M48.061 2. Morbid obesity due to excess calories (HCC) E66.01 Discussion: Ms. Gonzalez is a very pleasant 83-year-old female brought in to the office today by her son. The patient is here for evaluation of bilateral gradual lower extremity weakness noted over a number of years gradually worsening. She tried physical therapy a couple months ago and tried to work very hard in it but seem to not get any better and felt that maybe she even became slightly weaker as a result. She uses a cane in her right hand to help her get around. She does have some separate LEFT groin area pain and anterior left thigh pain. She comes in with a new MRI scan and recent lumbar plain radiographs. She underwent LEFT RACHEL about 2 and half years ago and recently saw her orthopedist who indicated that the hip replacement does look very good. EXAM Highlights: She is quite slow to mobilize from sitting to standing posture and she tends to lean slightly forward as she walks. She leans on her cane in the right hand fairly heavily and take short steps slightly favoring the left Low back motion is not fully tested during today's visit because she is unstable/unsteady on her feet. She does not have any point tenderness to the low back or bony prominences of the pelvis I cannot detect focal weakness in lower extremities She is hyporeflexic throughout bilateral lower extremities and there is no positivity to Babinski's. Clonus is normal. IMAGING: We spent a lengthy time reviewing her MRI study and x-rays. She has very severe degenerative findings throughout the lumbar region at every level. She has severe stenosis at L to 3, L3-4, L4-5 and to a little lesser extent at L5-S1. At L2-3 on the left, there appears to be a facet cyst but it is not specifically noted by the radiologist. This may be the one thing that correlates most closely with her left groin and anterior thigh radiating symptoms SUMMARY/PLAN: We also had a lengthy discussion regarding the fact that her pain and overall symptoms are MUCH less than expected based on the findings of the x-rays and MRI study. I offered consideration of LEFT L2-3 TFESI to try to address the left groin pain and anterior thigh pain I offered consideration of gabapentin I offered neurosurgical consultation In the end, decision was made to hold off on all of the above. Somehow, she is just not symptomatic enough to want to do anything about these treatment options right now. We discussed the importance of weight loss in context of overall spine health She will let me know if she would like to consider any of the above options that we discussed. It seems that her main thing that drives her decision will end up being her day-to-day functioning level and strength rather than her pain. Plan : ACTIVITY RECOMMENDATIONS: -The patient is encouraged to avoid bed rest and maintain normal activity. NUTRITION RECOMMENDATIONS: -The patient is carrying a significant amount of weight above an ideal BMI. We discussed how this impacts overall health and back pain. FOLLOW-UP: -The patient is instructed to return as needed. This document has been created with the use of voice recognition technology. It may contain inaccuracies: (e.g. misspellings, inaccurate syntax or word sense) that have escaped review. Time spent: 45 minutes today with this patient visit. This includes ryed-wz-[id number] time, review of chart records regarding conservative care history, spine-pertinent imaging, and communication/care coordination with referring provider, problem-specific history-taking and counseling/education regarding treatment options. cc: Norm Sharif [id number] [facility] [id number] Results of consultation to be transmitted via electronic medical record for those providers who practice within [facility] or with access to [facility] via [facility], or via letter. ____ ################################## ################################## #### CHIEF COMPLAINT: Patient is here for both legs pain but left is worse. Has this pain for years and it is getting worse. Pain starts in the left groin and goes down to the leg. When she is walking, or do something she will have weakness in the both legs. Also if she's moves wrong, or do something sudden then she will be in pain. And pain in the both knees. No pain at this moment. HPI: see Discussion above History of bowel or bladder dysfunction (not IBS or constipation): No History of previous spinal surgery: No History of spinal fracture: No Work Status: retired NON-OPERATIVE CARE: Medication(s): She has tried the following for relief of her symptoms: OTC Tylenol Physical Therapy: She has had physical therapy for her current symptoms. This was completed 2 months ago. The therapy did not provide any significant relief. Was making pain worse. Spinal Injections: She has not gotten prior spinal injections. Other: None Current Outpatient Medications Medication Sig Dispense Refill apixaban (ELIQUIS) 5 mg tab(s) Take 1 tablet by mouth two times a day. 180 tablet 3 metoprolol succinate ER (TOPROL XL) 25 mg 24 hr tablet Take 1 tablet by mouth once daily. 90 tablet 3 ezetimibe (ZETIA) 10 mg tablet Take 1 tablet by mouth once daily. HOLD 07/24/2023 90 tablet 3 hydroCHLOROthiazide 25 mg tablet Take 1 tablet by mouth once daily. 90 tablet 1 levothyroxine (LEVOXYL) 112 mcg tablet Take 1 tablet by mouth once daily. Take on empty stomach. For thyroid. 90 tablet 1 lisinopril (ZESTRIL) 40 mg tablet Take 1 tablet by mouth once daily. 90 tablet 3 fluticasone (FLONASE) 50 mcg/actuation nasal spray Use 2 Sprays in each nostril once daily. Rinse mouth after use. 1 Each 2 CPAP Initiate Auto PAP @ 5-20 cm of water with humidification. Mask (per patient preference) optional chin strap (if indicated) , filters, tubing, humidifier and lifetime supplies. 1 Each 0 acetaminophen (TYLENOL) 500 mg tablet Take 2 tablets by mouth every 8 hours as needed for pain. 90 tablet 0 aspirin, enteric coated (ECOTRIN LOW STRENGTH) 81 mg EC tablet Take 1 tablet by mouth twice daily. (Patient taking differently: Take 81 mg by mouth two times a day. Once daily) 60 tablet 0 multivitamin tablet Take 1 tablet by mouth once daily. (Patient not taking: Reported on 10/23/2023) No current facility-administered medications for this visit. Allergies: Nsaids (Non-Steroidal Anti-Inflammatory Drug) and Eqnzclk-Qjx-Jmd Reductase Inhibitors PAST MEDICAL HISTORY Diagnosis Date Diarrhea Generalized osteoarthrosis, unspecified site HTN (hypertension) Lung nodule repeat ct in spring, benign Other and unspecified hyperlipidemia Rectal bleeding PAST SURGICAL HISTORY Procedure Laterality Date COLONOSCOPY 08/26/2005 VJ - scattered tic EGD 08/26/2005 VJ - normal PAST SURGICAL HISTORY OF Right carpal tunnel on the right hand PAST SURGICAL HISTORY OF Right arthoscopy on the right knee PAST SURGICAL HISTORY OF Right 01/2016 ORIF right ankle, 2 small screws remain by Dr. Bedoya PAST SURGICAL HISTORY OF N/A 01/2023 Dental work. Extracted all teeth, dentures now in place. TOTAL HIP REPLACEMENT Left 07/17/2021 Left total hip arthroplasty TOTAL KNEE REPLACEMENT Right 12/25/2021 Right total knee replacement UNSPECIFIED ORAL SURGERY PROCEDURE, BY REPORT wisdom teeth removed. Social History Tobacco Use Smoking status: Former Packs/day: 0.50 Years: 20.00 Additional pack years: 0.00 Total pack years: 10.00 Types: Cigarettes Quit date: 11/08/2000 Years since quittin.9 Smokeless tobacco: Never Tobacco comments: 2003 quit Vaping Use Vaping Use: Never used Substance Use Topics Alcohol use: No Drug use: No FAMILY HISTORY Problem Relation Age of Onset Heart Mother Hypertension Mother Hypertension Father Renal Disease Father Asthma No Family History COPD No Family History REVIEW OF SYSTEMS: Constitutional: (-) Fever/Chills (-) Night Sweats (-) Weight Gain (-) Weight Loss Gastrointestinal: (-) Abdominal Pain (-) Diarrhea (+) Constipation (-) Heart Burn Cardiovascular: (-) Chest Pain (-) Palpitations (+) Lightheadedness (-) Hx Heart Surgery/Stent Respiratory: (+) Short of Breath (+) Cough (-) Snoring Neurologic: (-) Headache (-) Blurry Vision (-) Fainting Skin: (-) Rashes (+) Itching (+) Other Lesions skin cancer removed on couple spot Psychiatric: (-) Depression (-) Anxiety (-) Suicidal Thoughts Genitourinary: (+) Frequency (+) Urgency Endocrine: (+) Thyroid Disorder (-) Diabetes Hematologic: (-) Prolonged Bleeding (+) Easy Bruising ################################## ################################## ################################## ########################### PHYSICAL EXAM: Blood pressure 147/61, pulse 65, height 161.3 cm (5' 3.5 ), weight 108 kg (238 lb 1.6 oz), SpO2 97%. Body mass index is 41.52 kg/m . General: Patient is a(n) average historian. The patient appears approximately the recorded age and is sitting comfortably in the examining room. The patient is average height in stature and is obese in appearance. This individual has difficulty arising from a sitting position and does have difficulty acquiring a full, upright position when standing. Station and Gait: flexed posture and antalgic gait leaning forward, favoring the left lower extremity, flexed posture and gait using a cane, short strides, and slow pace The patient is unable to walk in a tandem gait. MENTAL STATUS EXAMINATION: The patient was well groomed and casually attired. The patient had excellent eye contact and rapport was easy to establish. The patient appeared to be alert and oriented in all spheres. The patient's overall medical judgment appeared to be good.The patient's motivation for treatment was judged based on today's encounter to be fair. SPINE: Lumbar Lordosis: Decreased/flattened Thoracic Kyphosis: Increased PALPATION TENDERNESS: No tenderness to palpation throughout axial spine and posterior pelvic bony prominences Hyperesthesia present: No Regional symptoms present: No Increased pain with axial loading: No Distraction: Normal Pain responses: appropriate NEUROLOGIC EXAM: MOTOR: Requires verbal cues to minimize cog-wheel or give-way resistance: No Hip Flexor R: 5/5 L: 5/5 Hip Abductor R: 5/5 L: 5/5 Hip Adductor R: 5/5 L: 5/5 Knee Extension R: 5/5 L: 5/5 Foot Dorsiflexion R: 5/5 L: 5/5 Foot Plantar Flexion R: 5/5 L: 5/5 Ext Hallicus Longus R: 5/5 L: 5/5 Toe Extensors R: 5/5 L: 5/5 SENSATION to Light Touch: Lumbar: L2-S1 symmetrically normal. REFLEXES: Lower Extremity: Patella tendon: R: 1+ L: 1+ Achilles tendon: R: 1+ L: 1+ Clonus: R: 0 beats/Normal L: 0 beats/Normal Babinski Sign: Negative bilaterally. VASCULAR: Skin appearance: Right: Warm/pink Left: Warm/pink Capillary refill: Right: brisk Left: brisk ADDITIONAL MUSCULOSKELETAL EXAM: HIP/PELVIS EXAM: Tenderness over the PSIS: Right: No Left: No Greater Trochanteric pain: Right: No Left: No Motion restriction: Right: No Left: Yes Pain: Right: No Left: No SPECIAL TESTS: Straight Leg Raise: negative bilaterally Contralateral Straight Leg Raise: negative bilaterally IMAGING STUDIES: See discussion above documented in this encounter [facility] 10-15-2023 Note Patient Outreach ([facility]) DAYANARA GONZALEZ ([id number]) 1940 F FNS Date Time Provider Department 10/15/23 DARLENE TATE During your visit today, we recorded the following information about you: Darlene Tate, RN 10/15/2023 11:16 AM Signed CD Telephonic Outreach Provider Action/FYI Social Determinants updated Transportation Needs and Food Insecurity. Contacted for: Routine Telephonic Outreach Contact made with patient: Yes Patient identified by name and date of . Discussed care with patient Are you experiencing any new or worsening symptoms you need to talk about today? No Disease Specific Do you check your blood pressure at home? Yes, Enter readings: has not checked lately. Do you have new or worsening shortness of breath with activity? No Do you feel like you are dehydrated for any reason, including not being able to eat or drink normally, or having less urine/much darker urine than normal for you? Yes Do you check your daily weight at home? 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 Routed to: No Action Needed MICHELLE Education Provided this Outreach: No Darlene Tate RN October 15, 2023 11:12 AM Allergies As of Date: 10/15/2023 Noted Allergy Reaction NSAIDS (NON-STEROIDAL ANTI-INFLAM*11/07/2021 14 - Other: See Comments Comments: Pt. states has cautioned her not to use due to kidney disease [id number] REDUCTASE INHIBIT*07/05/2020 17 - Myalgia Date Reviewed: 09/01/2023 Reviewed by: Lexis Barone LPN - Fully Assessed Reason for Visit: CDM [Other] Cmt: Telephonic Outreach Prescriptions as of 10/15/2023 - apixaban (ELIQUIS) 5 mg tab(s) Take 1 tablet by mouth two times a day. - metoprolol succinate ER (TOPROL XL) 25 mg 24 hr tablet Take 1 tablet by mouth once daily. - ezetimibe (ZETIA) 10 mg tablet Take 1 tablet by mouth once daily. HOLD 07/24/2023 - hydroCHLOROthiazide 25 mg tablet Take 1 tablet by mouth once daily. - levothyroxine (LEVOXYL) 112 mcg tablet Take 1 tablet by mouth once daily. Take on empty stomach. For thyroid. - lisinopril (ZESTRIL) 40 mg tablet Take 1 tablet by mouth once daily. - fluticasone (FLONASE) 50 mcg/actuation nasal spray Use 2 Sprays in each nostril once daily. Rinse mouth after use. - CPAP Initiate Auto PAP @ 5-20 cm of water with humidification. Mask (per patient preference) optional chin strap (if indicated) , filters, tubing, humidifier and lifetime supplies. - acetaminophen (TYLENOL) 500 mg tablet Take 2 tablets by mouth every 8 hours as needed for pain. - aspirin, enteric coated (ECOTRIN LOW STRENGTH) 81 mg EC tablet Take 1 tablet by mouth twice daily. - multivitamin tablet Take 1 tablet by mouth once daily. 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 Neoplasm of uncertain behavior of skin [D48.5] 06/27/2010 01/29/2012 Disturbance of Skin Sensation: tenderness//pain*06/27/2010 01/29/2012 Osteoarthritis [M19.90] 03/31/2011 Essential hypertension, benign [I10] 08/03/2012 Dizziness and giddiness [R42] 09/30/2013 05/26/2016 Morbid obesity due to excess calories (HCC) [E6*06/06/2016 Lung nodule [R91.1] 06/09/2016 CKD (chronic kidney disease) stage 3, GFR 30-59*11/23/2018 Lightheaded [R42] 01/05/2020 12/17/2022 Atrial tachycardia (HCC) [I47.19] 11/05/2020 Ventricular tachycardia, nonsustained (HCC) [I4*11/05/2020 Chronic right-sided low back pain with right-si*11/16/2020 Primary osteoarthritis of right knee [M17.11] 07/10/2021 Former smoker [Z87.891] 07/10/2021 History of total hip arthroplasty, left [Z96.64*07/17/2021 Syncope, cardiogenic [R55] 12/16/2021 Palpitations [R00.2] 12/16/2021 Obesity, Class III, BMI >= 40 [E66.01] 01/27/2022 Atrial fibrillation, persistent (HCC) [I48.19] 01/27/2022 01/27/2022 Dyspnea on exertion [R06.09] 02/14/2022 12/17/2022 Coronary artery disease involving [place] dubose*02/20/2022 Statin intolerance [Z78.9] 06/02/2022 Paroxysmal atrial fibrillation (HCC) [I48.0] 06/02/2022 Hypothyroidism, acquired [E03.9] 09/03/2022 Bilateral carotid artery stenosis [I65.23] 02/04/2023 Encounter Status:Closed by DARLENE TATE on 10/15/23 [facility] 10-15-2023 Note HNO ID: [id number] Author: DARLENE TATE RN Service: ? Author Type: Registered Nurse Type: Progress Notes Filed: 10/15/2023 11:16 Note Text: CDM Telephonic Outreach Provider Action/FYI Social Determinants updated Transportation Needs and Food Insecurity. Contacted for: Routine Telephonic Outreach Contact made with patient: Yes Patient identified by name and date of . Discussed care with patient Are you experiencing any new or worsening symptoms you need to talk about today? No Disease Specific Do you check your blood pressure at home? Yes, Enter readings: has not checked lately. Do you have new or worsening shortness of breath with activity? No Do you feel like you are dehydrated for any reason, including not being able to eat or drink normally, or having less urine/much darker urine than normal for you? Yes Do you check your daily weight at home? 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 Routed to: No Action Needed MICHELLE Education Provided this Outreach: No Darlene Tate RN October 15, 2023 11:[address] [facility] 10-14-2023 Note Patient Outreach (AM [facility]) DAYANARA GONZALEZ ([id number]) 1940 F FNS Date Time Provider Department 10/14/[address] [facility] [place] your visit today, we recorded the following information about you: Darlene Tate RN 10/14/2023 11:30 AM Signed [facility] Telephonic Outreach Provider Action/FYI Contact made with patient. Not a good time to talk. Requesting a call back tomorrow. Contacted for: Routine Telephonic Outreach Contact made with patient: Yes, see FYI. Darlene Tate RN October 14, 2023 11:30 AM Allergies As of Date: 10/14/2023 Noted Allergy Reaction NSAIDS (NON-STEROIDAL ANTI-INFLAM*11/07/2021 14 - Other: See Comments Comments: Pt. states has cautioned her not to use due to kidney disease [id number] REDUCTASE INHIBIT*07/05/2020 17 - Myalgia Date Reviewed: 09/01/2023 Reviewed by: Lexis Barone LPN - Fully Assessed Reason for Visit: CDM [Other] Cmt: Telephonic Outreach Prescriptions as of 10/14/2023 - apixaban (ELIQUIS) 5 mg tab(s) Take 1 tablet by mouth two times a day. - metoprolol succinate ER (TOPROL XL) 25 mg 24 hr tablet Take 1 tablet by mouth once daily. - ezetimibe (ZETIA) 10 mg tablet Take 1 tablet by mouth once daily. HOLD 07/24/2023 - hydroCHLOROthiazide 25 mg tablet Take 1 tablet by mouth once daily. - levothyroxine (LEVOXYL) 112 mcg tablet Take 1 tablet by mouth once daily. Take on empty stomach. For thyroid. - lisinopril (ZESTRIL) 40 mg tablet Take 1 tablet by mouth once daily. - fluticasone (FLONASE) 50 mcg/actuation nasal spray Use 2 Sprays in each nostril once daily. Rinse mouth after use. - CPAP Initiate Auto PAP @ 5-20 cm of water with humidification. Mask (per patient preference) optional chin strap (if indicated) , filters, tubing, humidifier and lifetime supplies. - acetaminophen (TYLENOL) 500 mg tablet Take 2 tablets by mouth every 8 hours as needed for pain. - aspirin, enteric coated (ECOTRIN LOW STRENGTH) 81 mg EC tablet Take 1 tablet by mouth twice daily. - multivitamin tablet Take 1 tablet by mouth once daily. 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 Neoplasm of uncertain behavior of skin [D48.5] 06/27/2010 01/29/2012 Disturbance of Skin Sensation: tenderness//pain*06/27/2010 01/29/2012 Osteoarthritis [M19.90] 03/31/2011 Essential hypertension, benign [I10] 08/03/2012 Dizziness and giddiness [R42] 09/30/2013 05/26/2016 Morbid obesity due to excess calories (HCC) [E6*06/06/2016 Lung nodule [R91.1] 06/09/2016 CKD (chronic kidney disease) stage 3, GFR 30-59*11/23/2018 Lightheaded [R42] 01/05/2020 12/17/2022 Atrial tachycardia (HCC) [I47.19] 11/05/2020 Ventricular tachycardia, nonsustained (HCC) [I4*11/05/2020 Chronic right-sided low back pain with right-si*11/16/2020 Primary osteoarthritis of right knee [M17.11] 07/10/2021 Former smoker [Z87.891] 07/10/2021 History of total hip arthroplasty, left [Z96.64*07/17/2021 Syncope, cardiogenic [R55] 12/16/2021 Palpitations [R00.2] 12/16/2021 Obesity, Class III, BMI >= 40 [E66.01] 01/27/2022 Atrial fibrillation, persistent (HCC) [I48.19] 01/27/2022 01/27/2022 Dyspnea on exertion [R06.09] 02/14/2022 12/17/2022 Coronary artery disease involving [place]ose*02/20/2022 Statin intolerance [Z78.9] 06/02/2022 Paroxysmal atrial fibrillation (HCC) [I48.0] 06/02/2022 Hypothyroidism, acquired [E03.9] 09/03/2022 Bilateral carotid artery stenosis [I65.23] 02/04/2023 Encounter Status:Closed by DARLENE TATE on 10/14/23 [facility] 10-14-2023 Note HNO ID: [id number] Author: DARLENE TATE RN Service: ? Author Type: Registered Nurse Type: Progress Notes Filed: 10/14/2023 11:30 Note Text: CDM Telephonic Outreach Provider Action/FYI Contact made with patient. Not a good time to talk. Requesting a call back tomorrow. Contacted for: Routine Telephonic Outreach Contact made with patient: Yes, see FYI. Darlene Tate RN October 14, 2023 11:[address] [facility] 10-14-2023 History of Present illness Narrative CDM Telephonic Outreach Provider Action/FYI Contact made with patient. Not a good time to talk. Requesting a call back tomorrow. Contacted for: Routine Telephonic Outreach Contact made with patient: Yes, see FYI. Darlene Tate RN October 14, 2023 11:30 AM documented in this encounter [facility] 10-05-2023 Note HNO ID: [id number] Author: SHIRA RAY RT(R) Service: ? Author Type: Technologist Type: Progress Notes Filed: 10/05/2023 14:19 Note Text: Radiology Service Progress Note PATIENT NAME: Dayanara Gonzalez DATE OF SERVICE: October 05, 2023 TIME: 2:19 PM PATIENT IDENTITY VERIFICATION COMPLETED USING TWO (2) IDENTIFIERS: Name and Date of confirmed by patient verbally. FALL SCREENING: Has the patient had 2 falls in the last year or 1 fall with injury or currently using an Ambulatory Assistive Device (Walker, Cane, Wheelchair, Crutches, etc.)? Yes, Patient High Risk for Falls What interventions were put in place to prevent falls during this visit? Instructed Patient to Call for Help if Needed, Offered Assistance with Transfers/Clothing, Instructed Patient to Remain Seated (Not on Exam Table) Until Exam, and Increased Observations by Caregivers PATIENT GENDER DATA: Female. status: : No status: NO. PATIENT RELEVANT IMPLANT DATA REVIEWED: Yes PATIENT PRESENTS WITH AN IMPLANTABLE OR ATTACHED GOLF COURSE ASSISTANT: No RADIOLOGY DEPARTMENT: MR; Exam(s) Completed: Spine: Lumbar spine PERIPHERAL IV DATA: Not applicable SIGNED BY: RT Reagan(R) October 05, 2023 2:[address] [facility] 09-17-2023 Note Patient Outreach (AM [facility] [place]) JINGDAYANARA Julio ([id number]) 1940 F FNS Date Time Provider Department 09/17/[address] [facility] [place] your visit today, we recorded the following information about you: Darlene Tate RN 09/17/2023 9:33 AM Signed CDM Telephonic Outreach Provider Action/FYI #2 attempt to contact patient. Contacted for: Routine Telephonic Outreach Contact made with patient: No, left message. Darlene Tate RN September 17, 2023 9:33 AM Allergies As of Date: 09/17/2023 Noted Allergy Reaction NSAIDS (NON-STEROIDAL ANTI-INFLAM*11/07/2021 14 - Other: See Comments Comments: Pt. states has cautioned her not to use due to kidney disease VROXCBL-HEY-HUN REDUCTASE INHIBIT*07/05/2020 17 - Myalgia Date Reviewed: 09/01/2023 Reviewed by: Lexis Barone LPN - Fully Assessed Reason for Visit: CDM [Other] Cmt: Telephonic Outreach Prescriptions as of 09/17/2023 - nystatin (MYCOSTATIN) powder Apply 1 application to affected area two times a day. - ezetimibe (ZETIA) 10 mg tablet Take 1 tablet by mouth once daily. HOLD 07/24/2023 - hydroCHLOROthiazide 25 mg tablet Take 1 tablet by mouth once daily. - levothyroxine (LEVOXYL) 112 mcg tablet Take 1 tablet by mouth once daily. Take on empty stomach. For thyroid. - lisinopril (ZESTRIL) 40 mg tablet Take 1 tablet by mouth once daily. - fluticasone (FLONASE) 50 mcg/actuation nasal spray Use 2 Sprays in each nostril once daily. Rinse mouth after use. - apixaban (ELIQUIS) 5 mg tab(s) Take 1 tablet by mouth two times a day. - metoprolol succinate ER (TOPROL XL) 25 mg 24 hr tablet Take 1 tablet by mouth once daily. - CPAP Initiate Auto PAP @ 5-20 cm of water with humidification. Mask (per patient preference) optional chin strap (if indicated) , filters, tubing, humidifier and lifetime supplies. - acetaminophen (TYLENOL) 500 mg tablet Take 2 tablets by mouth every 8 hours as needed for pain. - aspirin, enteric coated (ECOTRIN LOW STRENGTH) 81 mg EC tablet Take 1 tablet by mouth twice daily. - multivitamin tablet Take 1 tablet by mouth once daily. 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 Neoplasm of uncertain behavior of skin [D48.5] 06/27/2010 01/29/2012 Disturbance of Skin Sensation: tenderness//pain*06/27/2010 01/29/2012 Osteoarthritis [M19.90] 03/31/2011 Essential hypertension, benign [I10] 08/03/2012 Dizziness and giddiness [R42] 09/30/2013 05/26/2016 Morbid obesity due to excess calories (HCC) [E6*06/06/2016 Lung nodule [R91.1] 06/09/2016 CKD (chronic kidney disease) stage 3, GFR 30-59*11/23/2018 Lightheaded [R42] 01/05/2020 12/17/2022 Atrial tachycardia (HCC) [I47.19] 11/05/2020 Ventricular tachycardia, nonsustained (HCC) [I4*11/05/2020 Chronic right-sided low back pain with right-si*11/16/2020 Primary osteoarthritis of right knee [M17.11] 07/10/2021 Former smoker [Z87.891] 07/10/2021 History of total hip arthroplasty, left [Z96.64*07/17/2021 Syncope, cardiogenic [R55] 12/16/2021 Palpitations [R00.2] 12/16/2021 Obesity, Class III, BMI >= 40 [E66.01] 01/27/2022 Atrial fibrillation, persistent (HCC) [I48.19] 01/27/2022 01/27/2022 Dyspnea on exertion [R06.09] 02/14/2022 12/17/2022 Coronary artery disease involving [place] dubose*02/20/2022 Statin intolerance [Z78.9] 06/02/2022 Paroxysmal atrial fibrillation (HCC) [I48.0] 06/02/2022 Hypothyroidism, acquired [E03.9] 09/03/2022 Bilateral carotid artery stenosis [I65.23] 02/04/2023 Encounter Status:Closed by DARLENE TATE on 09/17/23 [facility] 09-17-2023 Note HNO ID: [id number] Author: DARLENE TATE RN Service: ? Author Type: Registered Nurse Type: Progress Notes Filed: 09/17/2023 09:33 Note Text: CDM Telephonic Outreach Provider Action/FYI #2 attempt to contact patient. Contacted for: Routine Telephonic Outreach Contact made with patient: No, left message. Darlene Tate RN September 17, 2023 9:[address] [facility] 09-16-2023 Note HNO ID: [id number] Author: DARLENE TATE RN Service: ? Author Type: Registered Nurse Type: Progress Notes Filed: 09/16/2023 13:56 Note Text: CDM Telephonic Outreach Provider Action/FYI #1 attempt to contact patient. Contacted for: Routine Telephonic Outreach Contact made with patient: No, unable to leave message. Busy signal received. Will reattempt call Darlene Tate RN September 16, 2023 1:54 PM and Goals/Falls/ADL Update Contact made with patient: No, unable to leave message. Busy signal received. Will reattempt call Darlene Tate RN September 16, 2023 1:[address] [facility] 09-16-2023 Note Patient Outreach (AM [facility]) DAYANARA GONZALEZ ([id number]) 1940 F FNS Date Time Provider Department 09/16/23 DARLENE TATE [facility] During your visit today, we recorded the following information about you: Darlene Tate RN 09/16/2023 1:56 PM Signed [facility] Telephonic Outreach Provider Action/FYI #1 attempt to contact patient. Contacted for: Routine Telephonic Outreach Contact made with patient: No, unable to leave message. Busy signal received. Will reattempt call Darlene Tate RN September 16, 2023 1:54 PM and Goals/Falls/ADL Update Contact made with patient: No, unable to leave message. Busy signal received. Will reattempt call Darlene Tate RN September 16, 2023 1:54 PM Allergies As of Date: 09/16/2023 Noted Allergy Reaction NSAIDS (NON-STEROIDAL ANTI-INFLAM*11/07/2021 14 - Other: See Comments Comments: Pt. states has cautioned her not to use due to kidney disease [id number]-LDM-[id number] REDUCTASE INHIBIT*07/05/2020 17 - Myalgia Date Reviewed: 09/01/2023 Reviewed by: Lexis Barone LPN - Fully Assessed Reason for Visit: CDM [Other] Cmt: Telephonic Outreach Prescriptions as of 09/16/2023 - nystatin (MYCOSTATIN) powder Apply 1 application to affected area two times a day. - ezetimibe (ZETIA) 10 mg tablet Take 1 tablet by mouth once daily. HOLD 07/24/2023 - hydroCHLOROthiazide 25 mg tablet Take 1 tablet by mouth once daily. - levothyroxine (LEVOXYL) 112 mcg tablet Take 1 tablet by mouth once daily. Take on empty stomach. For thyroid. - lisinopril (ZESTRIL) 40 mg tablet Take 1 tablet by mouth once daily. - fluticasone (FLONASE) 50 mcg/actuation nasal spray Use 2 Sprays in each nostril once daily. Rinse mouth after use. - apixaban (ELIQUIS) 5 mg tab(s) Take 1 tablet by mouth two times a day. - metoprolol succinate ER (TOPROL XL) 25 mg 24 hr tablet Take 1 tablet by mouth once daily. - CPAP Initiate Auto PAP @ 5-20 cm of water with humidification. Mask (per patient preference) optional chin strap (if indicated) , filters, tubing, humidifier and lifetime supplies. - acetaminophen (TYLENOL) 500 mg tablet Take 2 tablets by mouth every 8 hours as needed for pain. - aspirin, enteric coated (ECOTRIN LOW STRENGTH) 81 mg EC tablet Take 1 tablet by mouth twice daily. - multivitamin tablet Take 1 tablet by mouth once daily. 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 Neoplasm of uncertain behavior of skin [D48.5] 06/27/2010 01/29/2012 Disturbance of Skin Sensation: tenderness//pain*06/27/2010 01/29/2012 Osteoarthritis [M19.90] 03/31/2011 Essential hypertension, benign [I10] 08/03/2012 Dizziness and giddiness [R42] 09/30/2013 05/26/2016 Morbid obesity due to excess calories (HCC) [E6*06/06/2016 Lung nodule [R91.1] 06/09/2016 CKD (chronic kidney disease) stage 3, GFR 30-59*11/23/2018 Lightheaded [R42] 01/05/2020 12/17/2022 Atrial tachycardia (HCC) [I47.19] 11/05/2020 Ventricular tachycardia, nonsustained (HCC) [I4*11/05/2020 Chronic right-sided low back pain with right-si*11/16/2020 Primary osteoarthritis of right knee [M17.11] 07/10/2021 Former smoker [Z87.891] 07/10/2021 History of total hip arthroplasty, left [Z96.64*07/17/2021 Syncope, cardiogenic [R55] 12/16/2021 Palpitations [R00.2] 12/16/2021 Obesity, Class III, BMI >= 40 [E66.01] 01/27/2022 Atrial fibrillation, persistent (HCC) [I48.19] 01/27/2022 01/27/2022 Dyspnea on exertion [R06.09] 02/14/2022 12/17/2022 Coronary artery disease involving [place]ose*02/20/2022 Statin intolerance [Z78.9] 06/02/2022 Paroxysmal atrial fibrillation (HCC) [I48.0] 06/02/2022 Hypothyroidism, acquired [E03.9] 09/03/2022 Bilateral carotid artery stenosis [I65.23] 02/04/2023 Encounter Status:Closed by DARLENE TATE on 09/16/23 [facility] 09-01-2023 Note HNO ID: [id number] Author: Norm Sharif MD Service: ? Author Type: Physician Type: Progress Notes Filed: 09/01/2023 2:04 PM Note Text: Patient presents with: Follow Up: For L hip pain HPI: Patient presents today for office visit for follow up. Hip xray was negative. 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 We had been following her elevated inflammatory markers. Her polyarthralgia we had seen her before for had improved with stopping her zetia. Stopping the zetia in hind sight believes did not help her. She feels her polyarthralgia is worse again. Has issues tolerating steroids. Has issues with hand pain. Some shoulder pain as well. Has dry eyes. No issues with dry eyes. Her mother had RA. Wants to hold on further meds for now. Has widespread muscle pain. Currently: still using the cane. Has not been back to physical therapy. Feels it is irritating her muscles. Still has pain in both thighs. Does get pain down the left leg now. At times can be numb in the legs. No new issues with bowel or bladder. Still with back pain. Some mild achiness of her arms. No neck pain. No numbness or weakness. See previous hpi: HPI: Patient presents today for office visit for left hip pain that started on Thursday07/29/23. Pain is from hip to groin. Woke up that morning fine. Pain started in afternoon. No fall or injury. No lifting, pushing or pulling of any heavy objects. Pain is persistent and has gotten worse. Now to the point where she can't hardly lift her leg. Hurts to walk and put pressure on it. Ambulating with cane. Prior to Thanksgiving, she felt much better. Stopping the zetia seems to have helped with her myalgias. The therapy had been helping as well. Overall only her legs were bothering her and had improved. Saw PT yesterday and was advised to see PCP. Was not able to participate in much of PT exercises except use of recumbent bike. No falls. Feels similar to hip issues she had prior to replacement a few years ago. Can bear weight. No numbness or weakness. Is mostly in the groin. No swelling in the leg. No issues controlling bowel or bladder. Has to find a certain position to get better. Took tylenol once this week before bed but didn't notice relief. Has not tried any other OTC meds. MEDICATIONS: Current Outpatient Medications Medication Sig hydroCHLOROthiazide 25 mg tablet Take 1 tablet by mouth once daily. levothyroxine (LEVOXYL) 112 mcg tablet Take 1 tablet by mouth once daily. Take on empty stomach. For thyroid. lisinopril (ZESTRIL) 40 mg tablet Take 1 tablet by mouth once daily. fluticasone (FLONASE) 50 mcg/actuation nasal spray Use 2 Sprays in each nostril once daily. Rinse mouth after use. apixaban (ELIQUIS) 5 mg tab(s) Take 1 tablet by mouth two times a day. metoprolol succinate ER (TOPROL XL) 25 mg 24 hr tablet Take 1 tablet by mouth once daily. CPAP Initiate Auto PAP @ 5-20 cm of water with humidification. Mask (per patient preference) optional chin strap (if indicated) , filters, tubing, humidifier and lifetime supplies. acetaminophen (TYLENOL) 500 mg tablet Take 2 tablets by mouth every 8 hours as needed for pain. multivitamin tablet Take 1 tablet by mouth once daily. aspirin, enteric coated (ECOTRIN LOW STRENGTH) 81 mg EC tablet Take 1 tablet by mouth twice daily. (Patient taking differently: Take 81 mg by mouth two times a day. Once daily) No current facility-administered medications for this visit. ALLERGIES: ALLERGIES Allergen Reactions Nsaids (Non-Steroid* Other: See Comments Pt. states Dr. has cautioned her not to use due to kidney disease Bueufgn-Bgm-Gfg Red* Myalgia PAST MEDICAL HISTORY Diagnosis Date Diarrhea Generalized osteoarthrosis, unspecified site HTN (hypertension) Lung nodule repeat ct in spring, benign Other and unspecified hyperlipidemia Rectal bleeding PAST SURGICAL HISTORY Procedure Laterality Date COLONOSCOPY 08/26/2005 VJ - scattered tic EGD 08/26/2005 VJ - normal PAST SURGICAL HISTORY OF Right carpal tunnel on the right hand PAST SURGICAL HISTORY OF Right arthoscopy on the right knee PAST SURGICAL HISTORY OF Right 01/2016 ORIF right ankle, 2 small screws remain by Dr. Bedoya PAST SURGICAL HISTORY OF N/A 01/2023 Dental work. Extracted all teeth, dentures now in place. TOTAL HIP REPLACEMENT Left 07/17/2021 Left total hip arthroplasty TOTAL KNEE REPLACEMENT Right 12/25/2021 Right total knee replacement UNSPECIFIED ORAL SURGERY PROCEDURE, BY REPORT wisdom teeth removed. FAMILY HISTORY Problem Relation Age of Onset Heart Mother Hypertension Mother Hypertension Father Renal Disease Father Asthma No Family History COPD No Family History Social History Tobacco Use Smoking status: Former Packs/day: 0.50 Years: 20.00 Additional pack years: 0.00 Total pack years: 10.00 Types: Cigarettes Quit date: 11/08/2000 Years since nain (more content not included)... [facility] 08-24-2023 Miscellaneous Notes Letter on desk to sign and mail to patient. Printed. Pt called and requesting a letter to get out of Jury Duty. She has Arthritis issues, bladder issues and has a hearing problem. Asking to have the letter mailed to her today. She lives an hour away can can't pick it up. Please advise pt if there is a problem. Mary Xiao LPN documented in this encounter [facility] 08-20-2023 Note Patient Outreach (AM [facility] [place]) DAYANARA GONZALEZ ([id number]) 1940 F FNS Date Time Provider Department 08/20/23 DARLENE TATE [facility] During your visit today, we recorded the following information about you: Darlene Tate, RN 08/20/2023 10:36 AM Signed [facility]M Telephonic Outreach Provider Action/FYI Falls and ADLs updated. Contacted for: Routine Telephonic Outreach Contact made with patient: Yes Patient identified by name and date of . Discussed care with patient Are you experiencing any new or worsening symptoms you need to talk about today? No Disease Specific Do you check your blood pressure at home? Yes, Enter readings: Been good per patient. Do you have new or worsening shortness of breath with activity? No Do you feel like you are dehydrated for any reason, including not being able to eat or drink normally, or having less urine/much darker urine than normal for you? No Do you check your daily weight at home? 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 Routed to: No Action Needed MICHELLE Education Provided this Outreach: No Darlene Tate RN August 20, 2023 10:35 AM Allergies As of Date: 08/20/2023 Noted Allergy Reaction NSAIDS (NON-STEROIDAL ANTI-INFLAM*11/07/2021 14 - Other: See Comments Comments: Pt. states has cautioned her not to use due to kidney disease [id number]-[id number] REDUCTASE INHIBIT*07/05/2020 17 - Myalgia Date Reviewed: 08/04/2023 Reviewed by: Azul Garner - Fully Assessed Reason for Visit: CDM [Other] Cmt: Telephonic Outreach Prescriptions as of 08/20/2023 - hydroCHLOROthiazide 25 mg tablet Take 1 tablet by mouth once daily. - levothyroxine (LEVOXYL) 112 mcg tablet Take 1 tablet by mouth once daily. Take on empty stomach. For thyroid. - lisinopril (ZESTRIL) 40 mg tablet Take 1 tablet by mouth once daily. - fluticasone (FLONASE) 50 mcg/actuation nasal spray Use 2 Sprays in each nostril once daily. Rinse mouth after use. - apixaban (ELIQUIS) 5 mg tab(s) Take 1 tablet by mouth two times a day. - metoprolol succinate ER (TOPROL XL) 25 mg 24 hr tablet Take 1 tablet by mouth once daily. - CPAP Initiate Auto PAP @ 5-20 cm of water with humidification. Mask (per patient preference) optional chin strap (if indicated) , filters, tubing, humidifier and lifetime supplies. - acetaminophen (TYLENOL) 500 mg tablet Take 2 tablets by mouth every 8 hours as needed for pain. - aspirin, enteric coated (ECOTRIN LOW STRENGTH) 81 mg EC tablet Take 1 tablet by mouth twice daily. - multivitamin tablet Take 1 tablet by mouth once daily. 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 Neoplasm of uncertain behavior of skin [D48.5] 06/27/2010 01/29/2012 Disturbance of Skin Sensation: tenderness//pain*06/27/2010 01/29/2012 Osteoarthritis [M19.90] 03/31/2011 Essential hypertension, benign [I10] 08/03/2012 Dizziness and giddiness [R42] 09/30/2013 05/26/2016 Morbid obesity due to excess calories (HCC) [E6*06/06/2016 Lung nodule [R91.1] 06/09/2016 CKD (chronic kidney disease) stage 3, GFR 30-59*11/23/2018 Lightheaded [R42] 01/05/2020 12/17/2022 Atrial tachycardia (HCC) [I47.19] 11/05/2020 Ventricular tachycardia, nonsustained (HCC) [I4*11/05/2020 Chronic right-sided low back pain with right-si*11/16/2020 Primary osteoarthritis of right knee [M17.11] 07/10/2021 Former smoker [Z87.891] 07/10/2021 History of total hip arthroplasty, left [Z96.64*07/17/2021 Syncope, cardiogenic [R55] 12/16/2021 Palpitations [R00.2] 12/16/2021 Obesity, Class III, BMI >= 40 [E66.01] 01/27/2022 Atrial fibrillation, persistent (HCC) [I48.19] 01/27/2022 01/27/2022 Dyspnea on exertion [R06.09] 02/14/2022 12/17/2022 Coronary artery disease involving [place]*02/20/2022 Statin intolerance [Z78.9] 06/02/2022 Paroxysmal atrial fibrillation (HCC) [I48.0] 06/02/2022 Hypothyroidism, acquired [E03.9] 09/03/2022 Bilateral carotid artery stenosis [I65.23] 02/04/2023 Encounter Status:Closed by DARLENE TATE on 08/20/23 [facility] 08-20-2023 Note HNO ID: [id number] Author: Darlene Tate, RN Service: ? Author Type: Registered Nurse Type: Progress Notes Filed: 08/20/2023 10:36 AM Note Text: CDM Telephonic Outreach Provider Action/FYI Falls and ADLs updated. Contacted for: Routine Telephonic Outreach Contact made with patient: Yes Patient identified by name and date of . Discussed care with patient Are you experiencing any new or worsening symptoms you need to talk about today? No Disease Specific Do you check your blood pressure at home? Yes, Enter readings: Been good per patient. Do you have new or worsening shortness of breath with activity? No Do you feel like you are dehydrated for any reason, including not being able to eat or drink normally, or having less urine/much darker urine than normal for you? No Do you check your daily weight at home? 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 Routed to: No Action Needed MICHELLE Education Provided this Outreach: No Darlene Tate RN August 20, 2023 10:[address] [facility] 08-19-2023 Note Patient Outreach (AM [facility]) DAYANARA GONZALEZ ([id number]) 1940 F FNS Date Time Provider Department 08/19/23 DARLENE TATE [facility] During your visit today, we recorded the following information about you: Darlene Tate RN 08/19/2023 11:08 AM Signed [facility] Telephonic Outreach Provider Action/FYI Contact made with patient. She is busy right now and requesting a call back tomorrow. Contacted for: Routine Telephonic Outreach Contact made with patient: Yes, see FYI. Darlene Tate RN August 19, 2023 11:07 AM and Goals/Falls/ADL Update Contact made with patient: Yes, see FYI. Darlene Tate RN August 19, 2023 11:07 AM Allergies As of Date: 08/19/2023 Noted Allergy Reaction NSAIDS (NON-STEROIDAL ANTI-INFLAM*11/07/2021 14 - Other: See Comments Comments: Pt. states has cautioned her not to use due to kidney disease ILNIONG-WVD-HBT REDUCTASE INHIBIT*07/05/2020 17 - Myalgia Date Reviewed: 08/04/2023 Reviewed by: Azul Garner - Fully Assessed Reason for Visit: CDM [Other] Cmt: Telephonic Outreach Prescriptions as of 08/19/2023 - hydroCHLOROthiazide 25 mg tablet Take 1 tablet by mouth once daily. - levothyroxine (LEVOXYL) 112 mcg tablet Take 1 tablet by mouth once daily. Take on empty stomach. For thyroid. - lisinopril (ZESTRIL) 40 mg tablet Take 1 tablet by mouth once daily. - fluticasone (FLONASE) 50 mcg/actuation nasal spray Use 2 Sprays in each nostril once daily. Rinse mouth after use. - apixaban (ELIQUIS) 5 mg tab(s) Take 1 tablet by mouth two times a day. - metoprolol succinate ER (TOPROL XL) 25 mg 24 hr tablet Take 1 tablet by mouth once daily. - CPAP Initiate Auto PAP @ 5-20 cm of water with humidification. Mask (per patient preference) optional chin strap (if indicated) , filters, tubing, humidifier and lifetime supplies. - acetaminophen (TYLENOL) 500 mg tablet Take 2 tablets by mouth every 8 hours as needed for pain. - aspirin, enteric coated (ECOTRIN LOW STRENGTH) 81 mg EC tablet Take 1 tablet by mouth twice daily. - multivitamin tablet Take 1 tablet by mouth once daily. 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 Neoplasm of uncertain behavior of skin [D48.5] 06/27/2010 01/29/2012 Disturbance of Skin Sensation: tenderness//pain*06/27/2010 01/29/2012 Osteoarthritis [M19.90] 03/31/2011 Essential hypertension, benign [I10] 08/03/2012 Dizziness and giddiness [R42] 09/30/2013 05/26/2016 Morbid obesity due to excess calories (HCC) [E6*06/06/2016 Lung nodule [R91.1] 06/09/2016 CKD (chronic kidney disease) stage 3, GFR 30-59*11/23/2018 Lightheaded [R42] 01/05/2020 12/17/2022 Atrial tachycardia (HCC) [I47.19] 11/05/2020 Ventricular tachycardia, nonsustained (HCC) [I4*11/05/2020 Chronic right-sided low back pain with right-si*11/16/2020 Primary osteoarthritis of right knee [M17.11] 07/10/2021 Former smoker [Z87.891] 07/10/2021 History of total hip arthroplasty, left [Z96.64*07/17/2021 Syncope, cardiogenic [R55] 12/16/2021 Palpitations [R00.2] 12/16/2021 Obesity, Class III, BMI >= 40 [E66.01] 01/27/2022 Atrial fibrillation, persistent (HCC) [I48.19] 01/27/2022 01/27/2022 Dyspnea on exertion [R06.09] 02/14/2022 12/17/2022 Coronary artery disease involving [place] [place]*02/20/2022 Statin intolerance [Z78.9] 06/02/2022 Paroxysmal atrial fibrillation (HCC) [I48.0] 06/02/2022 Hypothyroidism, acquired [E03.9] 09/03/2022 Bilateral carotid artery stenosis [I65.23] 02/04/2023 Encounter Status:Closed by DARLENE TATE on 08/19/23 [facility] 08-19-2023 Note HNO ID: [id number] Author: Darlene Tate RN Service: ? Author Type: Registered Nurse Type: Progress Notes Filed: 08/19/2023 11:08 AM Note Text: CDM Telephonic Outreach Provider Action/FYI Contact made with patient. She is busy right now and requesting a call back tomorrow. Contacted for: Routine Telephonic Outreach Contact made with patient: Yes, see FYI. Darlene Tate RN August 19, 2023 11:07 AM and Goals/Falls/ADL Update Contact made with patient: Yes, see FYI. Darlene Tate RN August 19, 2023 11:[address] [facility] 08-19-2023 History of Present illness Narrative CDM Telephonic Outreach Provider Action/FYI Contact made with patient. She is busy right now and requesting a call back tomorrow. Contacted for: Routine Telephonic Outreach Contact made with patient: Yes, see FYI. Darlene Tate RN August 19, 2023 11:07 AM and Goals/Falls/ADL Update Contact made with patient: Yes, see FYI. Darlene Tate RN August 19, 2023 11:07 AM documented in this encounter [facility] 08-18-2023 Miscellaneous Notes Pt. notified. Voices understanding. Alison Sanchez RN ----- Message from Reji Prakash MD sent at 08/18/2023 11:55 AM EST ----- Please call the patient to let her know the Monitor results are ok Jeffry Prakash documented in this encounter [facility] 08-18-2023 Note Patient Outreach (AM [facility]) DAYANARA GONAZLEZ ([id number]) 1940 F FNS Date Time Provider Department 08/18/23 DARLENE TATEG During your visit today, we recorded the following information about you: Darlene Tate RN 08/18/2023 11:43 AM Signed CDM Telephonic Outreach Provider Action/FYI #1 attempt to contact patient. Contacted for: Routine Telephonic Outreach Contact made with patient: No, left message. Darlene Tate RN August 18, 2023 11:42 AM and Goals/Falls/ADL Update Contact made with patient: No, left message. Darlene Tate RN August 18, 2023 11:42 AM Allergies As of Date: 08/18/2023 Noted Allergy Reaction NSAIDS (NON-STEROIDAL ANTI-INFLAM*11/07/2021 14 - Other: See Comments Comments: Pt. states has cautioned her not to use due to kidney disease [id number] REDUCTASE INHIBIT*07/05/2020 17 - Myalgia Date Reviewed: 08/04/2023 Reviewed by: Azul Garner - Fully Assessed Reason for Visit: CDM [Other] Cmt: Telephonic Outreach Prescriptions as of 08/18/2023 - fluticasone (FLONASE) 50 mcg/actuation nasal spray Use 2 Sprays in each nostril once daily. Rinse mouth after use. - apixaban (ELIQUIS) 5 mg tab(s) Take 1 tablet by mouth two times a day. - hydroCHLOROthiazide 25 mg tablet Take 1 tablet by mouth once daily. - levothyroxine (LEVOXYL) 112 mcg tablet Take 1 tablet by mouth once daily. Take on empty stomach. For thyroid. - metoprolol succinate ER (TOPROL XL) 25 mg 24 hr tablet Take 1 tablet by mouth once daily. - lisinopril (ZESTRIL, PRINIVIL) 40 mg tablet Take 1 tablet by mouth once daily. - CPAP Initiate Auto PAP @ 5-20 cm of water with humidification. Mask (per patient preference) optional chin strap (if indicated) , filters, tubing, humidifier and lifetime supplies. - acetaminophen (TYLENOL) 500 mg tablet Take 2 tablets by mouth every 8 hours as needed for pain. - aspirin, enteric coated (ECOTRIN LOW STRENGTH) 81 mg EC tablet Take 1 tablet by mouth twice daily. - multivitamin tablet Take 1 tablet by mouth once daily. 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 Neoplasm of uncertain behavior of skin [D48.5] 06/27/2010 01/29/2012 Disturbance of Skin Sensation: tenderness//pain*06/27/2010 01/29/2012 Osteoarthritis [M19.90] 03/31/2011 Essential hypertension, benign [I10] 08/03/2012 Dizziness and giddiness [R42] 09/30/2013 05/26/2016 Morbid obesity due to excess calories (HCC) [E6*06/06/2016 Lung nodule [R91.1] 06/09/2016 CKD (chronic kidney disease) stage 3, GFR 30-59*11/23/2018 Lightheaded [R42] 01/05/2020 12/17/2022 Atrial tachycardia (HCC) [I47.19] 11/05/2020 Ventricular tachycardia, nonsustained (HCC) [I4*11/05/2020 Chronic right-sided low back pain with right-si*11/16/2020 Primary osteoarthritis of right knee [M17.11] 07/10/2021 Former smoker [Z87.891] 07/10/2021 History of total hip arthroplasty, left [Z96.64*07/17/2021 Syncope, cardiogenic [R55] 12/16/2021 Palpitations [R00.2] 12/16/2021 Obesity, Class III, BMI >= 40 [E66.01] 01/27/2022 Atrial fibrillation, persistent (HCC) [I48.19] 01/27/2022 01/27/2022 Dyspnea on exertion [R06.09] 02/14/2022 12/17/2022 Coronary artery disease involving [place]*02/20/2022 Statin intolerance [Z78.9] 06/02/2022 Paroxysmal atrial fibrillation (HCC) [I48.0] 06/02/2022 Hypothyroidism, acquired [E03.9] 09/03/2022 Bilateral carotid artery stenosis [I65.23] 02/04/2023 Encounter Status:Closed by DARLENE TATE on 08/18/23 [facility] 08-18-2023 Note HNO ID: [id number] Author: Darlene Tate RN Service: ? Author Type: Registered Nurse Type: Progress Notes Filed: 08/18/2023 11:43 AM Note Text: [facility] Telephonic Outreach Provider Action/FYI #1 attempt to contact patient. Contacted for: Routine Telephonic Outreach Contact made with patient: No, left message. Darlene Tate RN August 18, 2023 11:42 AM and Goals/Falls/ADL Update Contact made with patient: No, left message. Darlene Tate RN August 18, 2023 11:[address] [facility] 08-18-2023 History of Present illness Narrative [facility] Telephonic Outreach Provider Action/FYI #1 attempt to contact patient. Contacted for: Routine Telephonic Outreach Contact made with patient: No, left message. Darlene Tate RN August 18, 2023 11:42 AM and Goals/Falls/ADL Update Contact made with patient: No, left message. Darlene Tate RN August 18, 2023 11:42 AM documented in this encounter [facility] documented in this encounter [facility]12-11-2023 Miscellaneous Notes* Telephone Encounter - Bradley Loo - 08/17/2023 1:39 PM EST ART 08/04/23 NOV 09/01/23 * Telephone Encounter - Norma Izaguirre - 08/17/2023 10:33 AM EST Patient has been identified by name and date of : Yes Requested Prescriptions Pending Prescriptions Disp Refills hydroCHLOROthiazide 25 mg tablet 90 tablet 1 Sig: Take 1 tablet by mouth once daily. levothyroxine (LEVOXYL) 112 mcg tablet 90 tablet 1 Sig: Take 1 tablet by mouth once daily. Take on empty stomach. For thyroid. lisinopril (ZESTRIL) 40 mg tablet 90 tablet 3 Sig: Take 1 tablet by mouth once daily. RX INSTRUCTIONS: Patient aware RX escripted to mail away pharmacy. No need to notify patient. [facility]a [facility]errano [facility] Miscellaneous Notes* Telephone Encounter - Bradley Loo - 08/07/2023 10:33 AM EST Pt notified. She verbalized understanding. rBadley Loo * Telephone Encounter - Norm Sharif MD - 08/07/2023 9:26 AM EST Agree, use ice alternating with heat and tylenol * Telephone Encounter - Cinthia Russell RN - 08/07/2023 9:19 AM EST Patient calls to let provider know that she took one Zanaflex for left hip pain on Thursday and about a 1/2 hour after she took it she started to feel dizzy. She then started to have trouble with vision (blurry and seeing black spots), with difficulty standing. She said the symptoms lasted about 4-5 hours and she felt like she was going to pass out. she felt groggy . Today, patient feels fine. Back to her normal self. She reports that she isn't going to take any more of the Zanaflex. Cinthia Russell RN [facility] NoteHNO ID: [id number] Author: Nicole Langley RT(R) Service: Radiology Author Type: Technologist Type: Progress Notes Filed: 08/04/2023 2:51 PM Note Text: Radiology Service Progress Note PATIENT NAME: Dayanara Gonzalez DATE OF SERVICE: August 04, 2023 TIME: 2:36 PM PATIENT IDENTITY VERIFICATION COMPLETED USING TWO (2) IDENTIFIERS: Name and Date of confirmed by patient verbally. FALL SCREENING: Has the patient had 2 falls in the last year or 1 fall with injury or currently using an Ambulatory Assistive Device (Walker, Cane, Wheelchair, Crutches, etc.)? Yes, Patient High Risk for Falls What interventions were put in place to prevent falls during this visit? Offered Assistance with Transfers/Clothing and Instructed Patient to Remain Seated (Not on Exam Table) Until Exam PATIENT GENDER DATA: Female. status: : No status: NO. PATIENT RELEVANT IMPLANT DATA REVIEWED: Not Applicable RADIOLOGY DEPARTMENT: General X-ray: Exam(s) Completed: Pelvis X-Ray: Pelvis with Hip Left PERIPHERAL IV DATA: Not applicable SIGNED BY: RT Shabbir(Mary) August 04, 2023 2:36 [facility]11-28-2023 NoteHNO ID: [id number] Author: Norm Sharif MD Service: ? Author Type: Physician Type: Progress Notes Filed: 08/04/2023 2:23 PM Note Text: Patient presents with: Hip Pain HPI: Patient presents today for office visit for left hip pain that started on Thursday07/29/23. Pain is from hip to groin. Woke up that morning fine. Pain started in afternoon. No fall or injury. No lifting, pushing or pulling of any heavy objects. Pain is persistent and has gotten worse. Now to the point where she can't hardly lift her leg. Hurts to walk and put pressure on it. Ambulating with cane. Prior to Thanksgiving, she felt much better. Stopping the zetia seems to have helped with her myalgias. The therapy had been helping as well. Overall only her legs were bothering her and had improved. Saw PT yesterday and was advised to see PCP. Was not able to participate in much of PT exercises except use of recumbent bike. No falls. Feels similar to hip issues she had prior to replacement a few years ago. Can bear weight. No numbness or weakness. Is mostly in the groin. No swelling in the leg. No issues controlling bowel or bladder. Has to find a certain position to get better. Took tylenol once this week before bed but didn't notice relief. Has not tried any other OTC meds. MEDICATIONS: Current Outpatient Medications Medication Sig fluticasone (FLONASE) 50 mcg/actuation nasal spray Use 2 Sprays in each nostril once daily. Rinse mouth after use. apixaban (ELIQUIS) 5 mg tab(s) Take 1 tablet by mouth two times a day. hydroCHLOROthiazide 25 mg tablet Take 1 tablet by mouth once daily. levothyroxine (LEVOXYL) 112 mcg tablet Take 1 tablet by mouth once daily. Take on empty stomach. For thyroid. metoprolol succinate ER (TOPROL XL) 25 mg 24 hr tablet Take 1 tablet by mouth once daily. lisinopril (ZESTRIL, PRINIVIL) 40 mg tablet Take 1 tablet by mouth once daily. CPAP Initiate Auto PAP @ 5-20 cm of water with humidification. Mask (per patient preference) optional chin strap (if indicated) , filters, tubing, humidifier and lifetime supplies. acetaminophen (TYLENOL) 500 mg tablet Take 2 tablets by mouth every 8 hours as needed for pain. aspirin, enteric coated (ECOTRIN LOW STRENGTH) 81 mg EC tablet Take 1 tablet by mouth twice daily. (Patient taking differently: Take 81 mg by mouth two times a day. Once daily) multivitamin tablet Take 1 tablet by mouth once daily. No current facility-administered medications for this visit. ALLERGIES: ALLERGIES Allergen Reactions Nsaids (Non-Steroid* Other: See Comments Pt. states has cautioned her not to use due to kidney disease Rplpouh-Tlj-Giw Red* Myalgia PAST MEDICAL HISTORY Diagnosis Date Diarrhea Generalized osteoarthrosis, unspecified site HTN (hypertension) Lung nodule repeat ct in spring, benign Other and unspecified hyperlipidemia Rectal bleeding PAST SURGICAL HISTORY Procedure Laterality Date COLONOSCOPY 08/26/2005 VJ - scattered tic EGD 08/26/2005 VJ - normal PAST SURGICAL HISTORY OF Right carpal tunnel on the right hand PAST SURGICAL HISTORY OF Right arthoscopy on the right knee PAST SURGICAL HISTORY OF Right 01/2016 ORIF right ankle, 2 small screws remain by Dr. Bedoya PAST SURGICAL HISTORY OF N/A 01/2023 Dental work. Extracted all teeth, dentures now in place. TOTAL HIP REPLACEMENT Left 07/17/2021 Left total hip arthroplasty TOTAL KNEE REPLACEMENT Right 12/25/2021 Right total knee replacement UNSPECIFIED ORAL SURGERY PROCEDURE, BY REPORT wisdom teeth removed. FAMILY HISTORY Problem Relation Age of Onset Heart Mother Hypertension Mother Hypertension Father Renal Disease Father Asthma No Family History COPD No Family History Social History Tobacco Use Smoking status: Former Packs/day: 0.50 Years: 20.00 Additional pack years: 0.00 Total pack years: 10.00 Types: Cigarettes Quit date: 11/08/2000 Years since quittin.7 Smokeless tobacco: Never Tobacco comments: 2003 quit Vaping Use Vaping Use: Never used Substance Use Topics Alcohol use: No Drug use: No Reviewed current medications, allergies, past medical history, surgical history, family history and social history today. REVIEW OF SYSTEMS All other reviewed and negative other than HPI. VITALS: BP 122/76 Pulse 71 Ht 160 cm (5' 3 ) Wt 107.8 kg (237 lb 9.6 oz) BMI 42.09 kg/m? Last 4 Encounter Wt Readings: Date: Wt: 07/27/2023 108 kg (238 lb) 07/24/2023 107.5 kg (237 lb) 06/22/2023 107.5 kg (237 lb) 02/09/2023 107 kg (236 lb) PHYSICAL EXAMINATION: General appearance: Well appearing, alert, in no acute distress, well-hydrated, well nourished. Skin: Skin color, texture, turgor normal, no suspicious rashes or lesions Head: Normocephalic, no masses, lesions, tenderness or abnormalities Back negative. Normal dtrs Extremities: No deformities, edema, skin discoloration, clubbing or cya (more content not included)...[facility]11-20-2023 NoteHNO ID: [id number] Author: Alison Sanchez RN Service: ? Author Type: Registered Nurse Type: Progress Notes Filed: 07/27/2023 5:05 PM Note Text: EVENT MONITOR DISPOSABLE PATCH INSTRUCTIONS Patient Name: Dayanara Gonzalez [facility] Number: [id number] Skin prepped and cleansed with alcohol Patch secured to prepped area Monitor Activated Serial #: [id number] Patient Instructed: Prescribed order timeframe Bathing guidelines Usage of event button and diary documentation Return of monitor at the end of prescribed order Call with problems [phone] or [phone] ext. [phone] Patient expresses a good understanding of instructions Alison [facility] NoteHNO ID: [id number] Author: Reji Prakash MD Service: ? Author Type: Physician Type: Progress Notes Filed: 07/27/2023 5:05 PM Note Text: [facility] [address] [facility] [id number] OUTPATIENT VISIT DATE 07/27/2023 PRIMARY CARE PHYSICIAN: Norm Sharif [address] [place] [address] HISTORY OF PRESENT ILLNESS: Ms. Gonzalez is a 82 year old woman who underwent catheterization in February 2022 after she was found to have ventricular tachycardia on outpatient monitoring. She had mild coronary artery disease. She had new onset atrial fibrillation in April 2022. She is also treated for hypertension and dyslipidemia. She presents the office for routine follow-up. She reports occasional episodes of sudden onset heart racing associated with lightheadedness. Is happening 2 or 3 times a week. It is becoming a little more frequent since her last visit. She has not had sustained symptoms. She tells me the symptoms will usually last for about 30 seconds to a minute. She denies symptoms concerning for CHF including PND, orthopnea, or lower extremity edema. PAST MEDICAL HISTORY Diagnosis Date Diarrhea Generalized osteoarthrosis, unspecified site HTN (hypertension) Lung nodule repeat ct in spring, benign Other and unspecified hyperlipidemia Rectal bleeding PAST SURGICAL HISTORY Procedure Laterality Date COLONOSCOPY 08/26/2005 VJ - scattered tic EGD 08/26/2005 VJ - normal PAST SURGICAL HISTORY OF Right carpal tunnel on the right hand PAST SURGICAL HISTORY OF Right arthoscopy on the right knee PAST SURGICAL HISTORY OF Right 01/2016 ORIF right ankle, 2 small screws remain by Dr. Bedoya PAST SURGICAL HISTORY OF N/A 01/2023 Dental work. Extracted all teeth, dentures now in place. TOTAL HIP REPLACEMENT Left 07/17/2021 Left total hip arthroplasty TOTAL KNEE REPLACEMENT Right 12/25/2021 Right total knee replacement UNSPECIFIED ORAL SURGERY PROCEDURE, BY REPORT wisdom teeth removed. SOCIAL HISTORY Social History Tobacco Use Smoking status: Former Packs/day: 0.50 Years: 20.00 Additional pack years: 0.00 Total pack years: 10.00 Types: Cigarettes Quit date: 11/08/2000 Years since quittin.7 Smokeless tobacco: Never Tobacco comments: 2003 quit Vaping Use Vaping Use: Never used Substance Use Topics Alcohol use: No Drug use: No FAMILY HISTORY Problem Relation Age of Onset Heart Mother Hypertension Mother Hypertension Father Renal Disease Father Asthma No Family History COPD No Family History ALLERGIES: ALLERGIES Allergen Reactions Nsaids (Non-Steroid* Other: See Comments Pt. states has cautioned her not to use due to kidney disease Lxlnbxi-Bpj-Xam Red* Myalgia MEDICATIONS: gabapentin (NEURONTIN) 300 mg capsule Take 1 capsule by mouth three times a day for 90 days. fluticasone (FLONASE) 50 mcg/actuation nasal spray Use 2 Sprays in each nostril once daily. Rinse mouth after use. apixaban (ELIQUIS) 5 mg tab(s) Take 1 tablet by mouth two times a day. hydroCHLOROthiazide 25 mg tablet Take 1 tablet by mouth once daily. levothyroxine (LEVOXYL) 112 mcg tablet Take 1 tablet by mouth once daily. Take on empty stomach. For thyroid. famotidine (PEPCID) 20 mg tablet Take 1 tablet by mouth at bedtime as needed. metoprolol succinate ER (TOPROL XL) 25 mg 24 hr tablet Take 1 tablet by mouth once daily. lisinopril (ZESTRIL, PRINIVIL) 40 mg tablet Take 1 tablet by mouth once daily. CPAP Initiate Auto PAP @ 5-20 cm of water with humidification. Mask (per patient preference) optional chin strap (if indicated) , filters, tubing, humidifier and lifetime supplies. acetaminophen (TYLENOL) 500 mg tablet Take 2 tablets by mouth every 8 hours as needed for pain. multivitamin tablet Take 1 tablet by mouth once daily. ezetimibe (ZETIA) 10 mg tablet Take 1 tablet by mouth once daily. HOLD 07/24/2023 clotrimazole (LOTRIMIN AF, CLOTRIMAZOLE,) 1 % cream Apply to affected area twice daily. (Patient not taking: No sig reported) triamcinolone acetonide (KENALOG) 0.1 % cream Apply 1 application to affected area three times daily. Apply sparingly to area for rash/itching. (Patient not taking: No sig reported) cetirizine (ZYRTEC) 10 mg tablet Take 1 tablet by mouth once daily. (Patient not taking: No sig reported) benzonatate (TESSALON PERLES) 100 mg capsule Take 1 capsule by mouth three times daily as needed for cough. (Patient not taking: No sig reported) aspirin, enteric coated (ECOTRIN LOW STRENGTH) 81 mg EC tablet Take 1 tablet by mouth twice daily. (Patient taking differently: Take 81 mg by mouth two times a day. Once daily) REVIEW OF SYSTEMS: Review of Systems Constitutional: Negative for chills, fever, malaise/fatigue and weight loss. HENT: Negative (more content not included)...[facility] 07-27-2023 History of Present illness Narrative* Alison Sanchez RN - 07/27/2023 4:57 PM EST EVENT MONITOR DISPOSABLE PATCH INSTRUCTIONS Patient Name: Dayanara Gonzalez [facility] Number: [id number] Skin prepped and cleansed with alcohol Patch secured to prepped area Monitor Activated Serial #: [id number] Patient Instructed: Prescribed order timeframe Bathing guidelines Usage of event button and diary documentation Return of monitor at the end of prescribed order Call with problems [phone] or [phone]. [phone] Patient expresses a good understanding of instructions Alison Sanchez RN * Reji Prakash MD - 07/27/2023 4:20 PM EST Images from the original note were not included. [facility] Cardiology ([facility]) [address] [facility] [id number] OUTPATIENT VISIT DATE 07/27/2023 PRIMARY CARE PHYSICIAN: Norm Sharif [address] [place] [address] HISTORY OF PRESENT ILLNESS: Ms. Gonzalez is a 82 year old woman who underwent catheterization in February 2022 after she was found tohave ventricular tachycardia on outpatient monitoring. She had mild coronary artery disease. She had new onset atrial fibrillation in April 2022. She is also treated for hypertension and dyslipidemia. She presents the office for routine follow-up. She reports occasional episodes of sudden onset heart racing associated with lightheadedness. Is happening 2 or 3 times a week. It is becoming a little more frequent since her last visit. She has not had sustained symptoms. She tells me the symptoms will usually last for about 30 seconds to a minute. She denies symptoms concerning for CHF includingPND, orthopnea, or lower extremity edema. PAST MEDICAL HISTORY Diagnosis Date Diarrhea Generalized osteoarthrosis, unspecified site HTN (hypertension) Lung nodule repeat ct in spring, benign Other and unspecified hyperlipidemia Rectal bleeding PAST SURGICAL HISTORY Procedure Laterality Date COLONOSCOPY 08/26/2005 VJ - scattered tic EGD 08/26/2005 VJ - normal PAST SURGICAL HISTORY OF Right carpal tunnel on the right hand PAST SURGICAL HISTORY OF Right arthoscopy on the right knee PAST SURGICAL HISTORY OF Right 01/2016 ORIF right ankle, 2 small screws remain by Dr. Bedoya PAST SURGICAL HISTORY OF N/A 01/2023 Dental work. Extracted all teeth, dentures now in place. TOTAL HIP REPLACEMENT Left 07/17/2021 Left total hip arthroplasty TOTAL KNEE REPLACEMENT Right 12/25/2021 Right total knee replacement UNSPECIFIED ORAL SURGERY PROCEDURE, BY REPORT wisdom teeth removed. SOCIAL HISTORY Social History Tobacco Use Smoking status: Former Packs/day: 0.50 Years: 20.00 Additional pack years: 0.00 Total pack years: 10.00 Types: Cigarettes Quit date: 11/08/2000 Years since quittin.7 Smokeless tobacco: Never Tobacco comments: 2003 quit Vaping Use Vaping Use: Never used Substance Use Topics Alcohol use: No Drug use: No FAMILY HISTORY Problem Relation Age of Onset Heart Mother Hypertension Mother Hypertension Father Renal Disease Father Asthma No Family History COPD No Family History ALLERGIES: ALLERGIES Allergen Reactions Nsaids (Non-Steroid* Other: See Comments Pt. states has cautioned her not to use due to kidney disease Xmuhnoc-Qab-Nqz Red* Myalgia MEDICATIONS: gabapentin (NEURONTIN) 300 mg capsule Take 1 capsule by mouth three times a day for 90 days. fluticasone (FLONASE) 50 mcg/actuation nasal spray Use 2 Sprays in each nostril once daily. Rinse mouth after use. apixaban (ELIQUIS) 5 mg tab(s) Take 1 tablet by mouth two times a day. hydroCHLOROthiazide 25 mg tablet Take 1 tablet by mouth once daily. levothyroxine (LEVOXYL) 112 mcg tablet Take 1 tablet by mouth once daily. Take on empty stomach. For thyroid. famotidine (PEPCID) 20 mg tablet Take 1 tablet by mouth at bedtime as needed. metoprolol succinate ER (TOPROL XL) 25 mg 24 hr tablet Take 1 tablet by mouth once daily. lisinopril (ZESTRIL, PRINIVIL) 40 mg tablet Take 1 tablet by mouth once daily. CPAP Initiate Auto PAP @ 5-20 cm of water with humidification. Mask (per patient preference) optional chin strap (if indicated) , filters, tubing, humidifier and lifetime supplies. acetaminophen (TYLENOL) 500 mg tablet Take 2 tablets by mouth every 8 hours as needed for pain. multivitamin tablet Take 1 tablet by mouth once daily. ezetimibe (ZETIA) 10 mg tablet Take 1 tablet by mouth once daily. HOLD 07/24/2023 clotrimazole (LOTRIMIN AF, CLOTRIMAZOLE,) 1 % cream Apply to affected area twice daily. (Patient not taking: No sig reported) triamcinolone acetonide (KENALOG) 0.1 % cream Apply 1 application to affected area three times daily. Apply sparingly to area for rash/itching. (Patient not taking: No sig reported) cetirizine (ZYRTEC) 10 mg tablet Take 1 tablet by mouth once daily. (Patient not taking: No sig reported) benzonatate (TESSALON PERLES) 100 mg capsule Take 1 capsule by mouth three times daily as needed for cough. (Patient not taking: No sig reported) aspirin, enteric coated (ECOTRIN LOW STRENGTH) 81 mg EC tablet Take 1 tablet by mouth twice daily. (Patient taking differently: Take 81 mg by mouth two times a day. Once daily) REVIEW OF SYSTEMS: Review of Systems Constitutional: Negative for chills, fever, malaise/fatigue and weight loss. HENT: Negative for hearing loss and sore throat. Eyes: Negative for blurred vision and double vision. Respiratory: Positive for shortness of breath. Cardiovascular: Positive for palpitations. Gastrointestinal: Negative. Genitourinary: Negative for dysuria, frequency, hematuria and urgency. Musculoskeletal: Negative. Skin: Negative. Neurological: Negative for dizziness, seizures, loss of consciousness, weakness and headaches. Endo/Heme/Allergies: Negative for environmental allergies. Does not bruise/bleed easily. Psychiatric/Behavioral: Negative for depression. PHYSICAL EXAMINATION: BP 146/77 Pulse 72 Wt 238 lb (108.0kg) SpO2 98% Repeat blood pressure right arm: 132/82 mmHg General: Pleasant woman sitting appears comfortable no apparent distress. She is alert and orientedx3 HEENT: Carotid upstrokes are brisk without bruits no JVD appreciated. Pulmonary: Lungs are clear no rales, wheezes, rhonchi Cardiovascular: Normal S1, S2 with regular rate and rhythm. No murmurs, rubs, or gallops Extremities: Warm, well-perfused, no lower extremity edema. Distal pulses are 2- 3+ and symmetric. CARDIOVASCULAR MEDICINE TESTING: ECG in the office 02/09/2023: Sinus bradycardia with normal axis and intervals. No significant ST or wave changes Cardiac Catheterization 02/14/2022: Hemodynamics: LVEDP: 13 mmHg LV - AORTA: No gradient. Coronary Angiography: Left Main: Normal Left Anterior Descending: Large caliber vessel. The proximal vessel has mild diffuse <30% luminal narrowing. Circumflex: Large-caliber nondominant vessel with a large obtuse marginal branch which extends to the apical lateral wall. There is mild diffuse disease Right Coronary Artery: Large-caliber dominant vessel with mild diffuse disease Echocardiogram 04/18/2022 Left Ventricle Normal LV size. Apical false tendon noted. Left ventricular systolic function is normal. The estimated ejection fraction is 65 %. Stage 2 diastolic dysfunction. No regional wallmotion abnormalities noted. Right Ventricle Normal RV size. Normal systolic function. Atria The left atrium is mildly enlarged. The right atrium is mildly enlarged. No doppler evidence forASD. Mitral Valve There is mild mitral annular calcification. Normal mitral valve. Mild-Moderate (1-2+) mitral valveinsufficiency. Tricuspid Valve Normal tricuspid valve. Mild to moderate (1-2+) tricuspid valve insufficiency. Right ventricularsystolic pressure estimated to be 37 mmHg. Aortic Valve Trisinus/trileaflet aortic valve. Mild diffuse aortic valve thickening. Mild focal aortic valve calcification. Aortic valve sclerosis/mild aortic valve stenosis. Pulmonic Valve The pulmonic valve is not well visualized. Mild (1+) pulmonic valve insufficiency. Great Vessels Normal sized aortic root. Pericardium/Pleural No pericardial effusion. Echocardiogram 01/23/2022: - Technically difficult exam due to body habitus. - Exam indication: Palpitations - The left ventricle is normal in size. There is mild concentric left ventricular hypertrophy. Left ventricular systolic function is normal. EF = 65 5% (2D biplane) Indeterminate left ventricular diastolic dysfunction due to inconsistent or technically suboptimal data. - The right ventricle is normal in size. Right ventricular systolic function is normal. - The visualized aorta is borderline dilated with a maximal dimension of 3.8 cm. - Exam was compared with the prior CC echocardiographic exam performed on 04/16/2018, no significant change. Echocardiogram 04/16/2018 CONCLUSIONS: - Technically difficult exam due to body habitus. - Exam indication: Tachycardia - The left ventricle is normal in size. There is mild concentric left ventricular hypertrophy. Leftventricular systolic function is normal. EF = 62 5% (2D 4-ch.) Definity contrast used for endocardial border detection. Normal left ventricular diastolic function. - The right ventricle is normal in size. Right ventricular systolic function is normal. - There are no significant valvular abnormalities. - The patient has not had a prior [facility] echocardiographic exam for comparison. Carotid Ultrasound 04/16/2022: IMPRESSION RIGHT SIDE Internal carotid artery: 20-39% stenosis. Vertebral artery: Patent and antegrade flow noted. Innominate artery: Unable to visualize. LEFT SIDE Internal carotid artery: 20-39% stenosis. Vertebral artery: Patent and antegrade flow noted. Subclavian artery: Plaque visualized without evidence of hemodynamically significant stenosis. Zio Monitor 01/06-01/20/22: Patient had a min HR of 52 bpm, max HR of 218 bpm, and avg HR of 70 bpm. Predominant underlying rhythm was Sinus Rhythm. 2 Ventricular Tachycardia runs occurred, the run with the fastest interval lasting 9 beats with a max rate of 218 bpm, the longest lasting 10 beats with an avg rate of 184 bpm. 88 Supraventricular Tachycardia runsoccurred, the run with the fastest interval lasting 9 beats with a max rate of 200 bpm, the longestlasting 15.8 secs with an avg rate of 115 bpm. Isolated SVEs were rare (<1.0%), SVE Couplets were rare (<1.0%), and SVE Triplets were rare (<1.0%). Isolated VEs were rare (<1.0%), VE Couplets were rare (<1.0%), and no VE Triplets were present. IMPRESSION: Ms. Gonzalez is a 82 year old woman with mild coronary artery disease on catheterization February 2022, paroxysmal atrial fibrillation, hypertension, and dyslipidemia with severe statin intolerance who presents the office for follow-up. PLAN AND RECOMMENDATIONS: 1. Coronary artery disease involving [place] coronary artery of [place] heart without angina pectoris- ICD9: 414.01, ICD10: I25.10 (primary diagnosis) Mild disease on catheterization 2021. Continue current medical therapy and risk factor modification 2. Paroxysmal atrial fibrillation (HCC) - ICD9: 427.31, ICD10: I48.0 We will repeat extended Holter monitor. If she has increasing frequency of atrial fibrillation may need to consider addition of antiarrhythmic or referred to electrophysiology - OUTSIDE VENDOR CARDIAC OUTPATIENT EXTENDED RHYTHM RECORDING (WITHOUT TELEMETRY) 3. Ventricular tachycardia, nonsustained (HCC) - ICD9: 427.1, ICD10: I47.29 4. Essential hypertension, benign - ICD9: 401.1, ICD10: I10 Has been well controlled on current regimen. 5. Mixed hyperlipidemia - ICD9: 272.2, ICD10: E78.2 Patient with severe statin intolerance. Fasting blood work from June 2023 was reviewed. LDL cholesterol 144 mg/dL. 6. Bilateral carotid artery stenosis - ICD9: 433.10, 433.30, ICD10: I65.23 Mild disease on carotid ultrasound April 2022. Reji Prakash MD documented [facility] Instructions* Patient Instructions* Reji Prakash MD - 07/27/2023 4:39 PM EST We are fitting you with a monitor today documented in this encounterWay[facility]11-17-2023 NoteHNO ID: [id number] Author: Julio Kerns PA-C Service: ? Author Type: Physician Electronic Resources Librarian Type: Progress Notes Filed: 07/24/2023 5:50 PM Note Text: 82 year old female essentially new to me with c/o from 06/22/2023 visit. Pain persistent, especially getting up at night No always achy, only since arthritis got worse, maybe 20 years ago. Retired 4th time last year from [employer]. Has been using Tylenol Having leg and hand cramps. If does therapy and goes out to shop has to take Tylenol. Can walk a couple hundred feet and has tos top r/t back pain. Has to sit down. Can shop leaning on cart. Able to sleep, wakes to urinate, stiff. Took prednisone as directed by Dr. Sharif, noted some improvement by the fourth the fifth day. Dr. Jean Carlos Renteria had her on prednisone in past: was intolerant with flushing and rapid heart rate. Notes she is on ezetimibe, intolerant to statins 06/22/[address] Sharif notes: Muscle pain in bilateral thighs. Has exercises that she does daily. About the past 6-8 month gets a burning in her muscles in thighs when trying to do them. No new back pain. Not on statins. Is intolerant of statins. Left arm pain. Whole arm hurts and has a tingling in her hand. Does admit to some pain in her neck also. Has been there for three or four months. No trauma. No weakness. Phone notes 07/07/2023 Pt called and is notified of providers results and questions. Pt voices understanding. She states she hasn't been having any headaches. She says her joint pain, leg, and muscle pain are all about the same. They are rough on a normal day she rates it a 6/10, but after therapy it's a 10/10 burning/aching. She says that when she isn't moving she isn't too bad, but moving and therapy make it worse. Pt denies trying ice or heat, and states she hasn't tried using the cream the provider ordered her. Pt also reports that last time she talked with the nurse she forgot to tell them she had quit taking her probiotic. She was taking this to help her have regular bowel movements. She said after she stopped this her Magnesium came back down to normal. Pt is asking what she can take to help her have normal Bms. Amanda Cummins, RN Response Dr. Sharif: Add a stool softener a day. Add prednisone 20 mg a day for 5 days and then follow up in two weeks. Check labs in one week. Component Latest Ref Rng AND Units 06/08/2023 06/22/2023 07/06/2023 07/20/2023 WBC 3.70 - 11.00 k/uL 8.54 RBC 3.90 - 5.20 m/uL 4.12 Hemoglobin 11.5 - 15.5 g/dL 12.2 Hematocrit 36.0 - 46.0 % 37.2 MCV 80.0 - 100.0 fL 90.3 MCH 26.0 - 34.0 pg 29.6 MCHC 30.5 - 36.0 g/dL 32.8 RDW-CV 11.5 - 15.0 % 12.9 Platelet Count 150 - 400 k/uL 279 MPV 9.0 - 12.7 fL 10.4 Neut% % 66.7 Abs Neut (ANC) 1.45 - 7.50 k/uL 5.70 Lymph% % 18.4 Abs Lymph 1.00 - 4.00 k/uL 1.57 [place]% % 10.7 Abs [place] <0.87 k/uL 0.91 (H) Eosin% % 3.5 Abs Eosin <0.46 k/uL 0.30 Baso% % 0.6 Abs Baso <0.11 k/uL 0.05 Immature Gran % % 0.1 IMMATURE GRANS (ABS) <0.10 k/uL <0.03 NRBC /100 WBC 0.0 Absolute nRBC <0.01 k/uL <0.01 DTYPE Auto Protein, Total 6.3 - 8.0 g/dL 7.1 Albumin 3.9 - 4.9 g/dL 4.1 Calcium 8.5 - 10.2 mg/dL 8.8 8.8 Bilirubin, Total 0.2 - 1.3 mg/dL 0.3 Alkaline Phosphatase 34 - 123 U/L 59 AST 13 - 35 U/L 18 ALT 7 - 38 U/L 9 Glucose 74 - 99 mg/dL 84 88 BUN 7 - 21 mg/dL 25 (H) 17 Creatinine 0.58 - 0.96 mg/dL 0.95 0.89 Sodium 136 - 144 mmol/L 140 138 Potassium 3.7 - 5.1 mmol/L 4.2 4.4 Chloride 97 - 105 mmol/L 102 103 CO2 22 - 30 mmol/L 23 26 Anion Gap 9 - 18 mmol/L 15 9 eGFR >=60 mL/min/1.73mA? 60 65 Cholesterol, Total <200 mg/dL 229 (H) Triglyceride <150 mg/dL 104 HDL Cholesterol >39 mg/dL 64 Non HDL Cholesterol <130 mg/dL 165 (H) Fasting Time hrs 12 VLDL Cholesterol <30 mg/dL 21 TC:HDL Ratio <5.10 3.58 LDL Cholesterol <100 mg/dL 144 (H) LDL:HDL Ratio <2.54 2.25 Normalized Calcium 1.08 - 1.30 mmol/L 1.22 Ionized Calcium 1.08 - 1.30 mmol/L 1.29 Magnesium 1.7 - 2.3 mg/dL 2.7 (H) 2.0 WSR 0 - 20 mm/hr 49 (H) 55 (H) 47 (H) CRP <0.9 mg/dL 1.8 (H) 2.1 (H) 3.3 (H) TSH 0.270 - 4.200 mIU/L 1.870 Rheumatoid Factor <16 IU/mL <10 STEPH Scr Qual Negative Negative Vitamin D 25 Hydroxy 31.0 - 80.0 ng/mL 33.7 PTH, Intact 15 - 65 pg/mL 35 06/22/2023 XR lumbar 3 view/AP RESULT: 5 nonrib-bearing lumbar type vertebrae. For numbering purposes, L4-5 is at the level of the iliac crest. Moderate spondylosis and osteophytosis throughout. Multilevel moderate to severe disc space narrowing. Degenerative change involving the posterior elements from L3 through S1. Mild posterior position of L2 on L3 and L3 on L4. Mild anterior position of L4 on L5. Dextroscoliosis of 16 degrees as measured from inferior L1 to inferior L4. 06/22/2023 x-ray cervical spine 4 view: Moderate to severe disc space narrowing and osteophytosis is seen at C3-4, C4-5, C5-6 and C6-7. Normal alignment. No fracture or pre (more content not included)...[facility]11-17-[facility] Instructions* Patient Instructions* Julio Kerns PA-C - 07/24/2023 2:28 PM EST Hold ezetimibe for 4 weeks and let me know if and when pain goes away. If it doesn't go away, start gabapentin as discussed starting with 300mg at bedtime and then if okay, morning, and then afternoon if tolerates. Gabapentin (Patient Education - Adult Medication) You must carefully read the Consumer Information Use and Disclaimer below in order to understand and correctly use this information Pronunciation (GA ba pen tin) Brand Names: USGralise; Gralise Starter; Neurontin Brand Names: [place]ACT Gabapentin [DSC]; AG-Gabapentin; APO-Gabapentin; Auro- Gabapentin; BCI Gabapentin [DSC]; BIO-Gabapentin; DOM-Gabapentin; GD-Gabapentin; GLN-Gabapentin; JAMP-Gabapentin; Mar-Gabapentin; MYLAN-Gabapentin [DSC]; Neurontin; PHL-Gabapentin [DSC]; PMS-Gabapentin; Priva-Gabapentin; PRO- Gabapentin; RAN-Gabapentin; MARY-Gabapentin; TARO-Gabapentin; TEVA-Gabapentin; VAN-Gabapentin [DSC] What is this drug used for? It is used to treat seizures. It is used to treat painful nerve diseases. It may be given to you for other reasons. Talk with the doctor. What do I need to tell my doctor BEFORE I take this drug? If you have an allergy to gabapentin or any other part of this drug. If you are allergic to any drugs like this one, any other drugs, foods, or other substances. Tell your doctor about the allergy and what signs you had, like rash; hives; itching; shortness of breath;wheezing; cough; swelling of face, lips, tongue, or throat; or any other signs. If you have kidney disease or are on dialysis. This is not a list of all drugs or health problems that interact with this drug. Tell your doctor and pharmacist about all of your drugs (prescription or OTC, natural products, vitamins) and health problems. You must check to make sure that it is safe for you to take this drug with all of your drugs and health problems. Do not start, stop, or change the dose of any drug withoutchecking with your doctor. What are some things I need to know or do while I take this drug? Tell all of your health care providers that you take this drug. This includes your doctors, nurses,pharmacists, and dentists. Avoid driving and doing other tasks or actions that call for you to be alert until you see how thisdrug affects you. This drug may affect certain lab tests. Tell all of your health care providers and lab workers thatyou take this drug. Have blood work checked as you have been told by the doctor. Talk with the doctor. Talk with your doctor before you drink alcohol or use other drugs and natural products that slow your actions. This drug is not the same as gabapentin enacarbil (Horizant ). Do not use in its place. Talk with the doctor. A severe and sometimes deadly reaction has happened. Most of the time, this reaction has signs likefever, rash, or swollen glands with problems in body organs like the liver, kidney, blood, heart, muscles and joints, or lungs. If you have questions, talk with the doctor. Do not stop taking this drug all of a sudden without calling your doctor. You may have a greater risk of side effects. If you need to stop this drug, you will want to slowly stop it as ordered by your doctor. If you are 65 or older, use this drug with care. You could have more side effects. Use with care in children. Talk with the doctor. Tell your doctor if you are or plan on getting . You will need to talk about the benefits and risks of using this drug while you are . Tell your doctor if you are breast-feeding. You will need to talk about any risks to your baby. What are some side effects that I need to call my doctor about right away? WARNING/CAUTION: Even though it may be rare, some people may have very bad and sometimes deadly side effects when taking a drug. Tell your doctor or get medical help right away if you have any of thefollowing signs or symptoms that may be related to a very bad side effect: Signs of an allergic reaction, like rash; hives; itching; red, swollen, blistered, or peeling skin with or without fever; wheezing; tightness in the chest or throat; trouble breathing, swallowing, ortalking; unusual hoarseness; or swelling of the mouth, face, lips, tongue, or throat. Signs of liver problems like dark urine, feeling tired, not hungry, upset stomach or stomach pain, light-colored stools, throwing up, or yellow skin or eyes. Signs of kidney problems like unable to pass urine, change in how much urine is passed, blood in the urine, or a big weight gain. Trouble controlling body movements, twitching, change in balance, trouble swallowing or speaking. Memory problems or loss. Change in eyesight. Feeling confused. Shakiness. Shortness of breath, a big weight gain, or swelling in the arms or legs. Feeling very tired or weak. Not able to control eye movements. If seizures are worse or not the same after starting this drug. Any unexplained bruising or bleeding. Swollen gland. Fever or chills. Sore throat. Muscle pain or weakness. Not able to focus. Very bad dizziness or passing out. Patients who take this drug may be at a greater risk of having thoughts or actions of suicide. The risk may be greater in people who have had these thoughts or actions in the past. Call the doctor right away if signs like low mood (depression), nervousness, restlessness, grouchiness, panic attacks,or changes in mood or actions are new or worse. Call the doctor right away if any thoughts or actions of suicide occur. What are some other side effects of this drug? All drugs may cause side effects. However, many people have no side effects or only have minor sideeffects. Call your doctor or get medical help if any of these side effects or any other side effects bother you or do not go away: Dizziness. Feeling sleepy. Upset stomach or throwing up. Diarrhea. Dry mouth. Feeling tired or weak. These are not all of the side effects that may occur. If you have questions about side effects, call your doctor. Call your doctor for medical advice about side effects. You may report side effects to your national health agency. How is this drug best taken? Use this drug as ordered by your doctor. Read all information given to you. Follow all instructionsclosely. All products: Keep taking this drug as you have been told by your doctor or other health care provider, even if you feel well. To gain the most benefit, do not miss doses. If you are taking an antacid that has aluminum or magnesium in it, take this drug at least 2 hours after taking the antacid. Gralise: Take with the evening meal. Swallow whole. Do not chew, break, or crush. All other products: Take with or without food. Take with food if it causes an upset stomach. Capsules: Swallow whole with a full glass of water. Tablets: You may break the tablet in half. Do not chew or crush. If you break the tablet in half, use the other half of the tablet for the next dose, as told by thedoctor. Throw away half-tablets not used within 28 days. Liquid (solution): Measure liquid doses carefully. Use the measuring device that comes with this drug. If there is none, ask the pharmacist for a device to measure this drug. What do I do if I miss a dose? Take a missed dose as soon as you think about it. If it is close to the time for your next dose, skip the missed dose and go back to your normal time. Do not take 2 doses at the same time or extra doses. How do I store and/or throw out this drug? Liquid (solution): Store in a refrigerator. Do not freeze. All other products: Store at room temperature. Store in a dry place. Do not store in a bathroom. All dose forms: Keep all drugs in a safe place. Keep all drugs out of the reach of children and pets. Throw away unused or drugs. Do not flush down a toilet or pour down a drain unless you are told to do so. Check with your pharmacist if you have questions about the best way to throw out drugs. There may be drug take-back programs in your area. General drug facts If your symptoms or health problems do not get better or if they become worse, call your doctor. Do not share your drugs with others and do not take anyone else's drugs. Keep a list of all your drugs (prescription, natural products, vitamins, OTC) with you. Give this list to your doctor. Talk with the doctor before starting any new drug, including prescription or OTC, natural products,or vitamins. Some drugs may have another patient information leaflet. If you have any questions about this drug,please talk with your doctor, nurse, pharmacist, or other health care provider. If you think there has been an overdose, call your poison control center or get medical care right away. Be ready to tell or show what was taken, how much, and when it happened. Last Reviewed Date 2017-12-11 documented [facility] History of Present illness Narrative* Julio Kerns PA-C - 07/24/2023 2:00 PM EST 82 year old female essentially new to me with c/o from 06/22/2023 visit. Pain persistent, especially getting up at night No always achy, only since arthritis got worse, maybe 20 years ago. Retired 4th time last year from [employer]. Has been using Tylenol Having leg and hand cramps. If does therapy and goes out to shop has to take Tylenol. Can walk a couple hundred feet and has tos top r/t back pain. Has to sit down. Can shop leaning on cart. Able to sleep, wakes to urinate, stiff. Took prednisone as directed by Dr. Sharif, noted some improvement by the fourth the fifth day. Dr. Jean Carlos Renteria had her on prednisone in past: was intolerant with flushing and rapid heart rate. Notes she is on ezetimibe, intolerant to statins 06/22/[address] Sharif notes: Muscle pain in bilateral thighs. Has exercises that she does daily. About the past 6-8 month gets a burning in her muscles in thighswhen trying to do them. No new back pain. Not on statins. Is intolerant of statins. Left arm pain. Whole arm hurts and has a tingling in her hand. Does admit to some pain in her neck also. Has been there for three or four months. No trauma. No weakness. Phone notes 07/07/2023 Pt called and is notified of providers results and questions. Pt voices understanding. She states she hasn't been having any headaches. She says her joint pain, leg, and muscle pain are all about the same. They are rough on a normal day she rates it a 6/10, but after therapy it's a 10/10 burning/aching. She says that when she isn't moving she isn't too bad, but moving and therapy make it worse. Pt denies trying ice or heat, and states she hasn't tried using the cream the provider ordered her. Pt also reports that last time she talked with the nurse she forgot to tell them she had quit taking her probiotic. She was taking this to help her have regular bowel movements. She said after she stopped this her Magnesium came back down to normal. Pt is asking what she can take to help her have normal Bms. Amanda Cummins, RN Response Dr. Sharif: Add a stool softener a day. Add prednisone 20 mg a day for 5 days and then follow up in two weeks. Check labs in one week. Component Latest Ref Rng & Units 06/08/2023 06/22/2023 07/06/2023 07/20/2023 WBC 3.70 - 11.00 k/uL 8.54 RBC 3.90 - 5.20 m/uL 4.12 Hemoglobin 11.5 - 15.5 g/dL 12.2 Hematocrit 36.0 - 46.0 % 37.2 MCV 80.0 - 100.0 fL 90.3 MCH 26.0 - 34.0 pg 29.6 MCHC 30.5 - 36.0 g/dL 32.8 RDW-CV 11.5 - 15.0 % 12.9 Platelet Count 150 - 400 k/uL 279 MPV 9.0 - 12.7 fL 10.4 Neut% % 66.7 Abs Neut (ANC) 1.45 - 7.50 k/uL 5.70 Lymph% % 18.4 Abs Lymph 1.00 - 4.00 k/uL 1.57 [place]% % 10.7 Abs [place] <0.87 k/uL 0.91 (H) Eosin% % 3.5 Abs Eosin <0.46 k/uL 0.30 Baso% % 0.6 Abs Baso <0.11 k/uL 0.05 Immature Gran % % 0.1 IMMATURE GRANS (ABS) <0.10 k/uL <0.03 NRBC /100 WBC 0.0 Absolute nRBC <0.01 k/uL <0.01 DTYPE Auto Protein, Total 6.3 - 8.0 g/dL 7.1 Albumin 3.9 - 4.9 g/dL 4.1 Calcium 8.5 - 10.2 mg/dL 8.8 8.8 Bilirubin, Total 0.2 - 1.3 mg/dL 0.3 Alkaline Phosphatase 34 - 123 U/L 59 AST 13 - 35 U/L 18 ALT 7 - 38 U/L 9 Glucose 74 - 99 mg/dL 84 88 BUN 7 - 21 mg/dL 25 (H) 17 Creatinine 0.58 - 0.96 mg/dL 0.95 0.89 Sodium 136 - 144 mmol/L 140 138 Potassium 3.7 - 5.1 mmol/L 4.2 4.4 Chloride 97 - 105 mmol/L 102 103 CO2 22 - 30 mmol/L 23 26 Anion Gap 9 - 18 mmol/L 15 9 eGFR >=60 mL/min/1.73m 60 65 Cholesterol, Total <200 mg/dL 229 (H) Triglyceride <150 mg/dL 104 HDL Cholesterol >39 mg/dL 64 Non HDL Cholesterol <130 mg/dL 165 (H) Fasting Time hrs 12 VLDL Cholesterol <30 mg/dL 21 TC:HDL Ratio <5.10 3.58 LDL Cholesterol <100 mg/dL 144 (H) LDL:HDL Ratio <2.54 2.25 Normalized Calcium 1.08 - 1.30 mmol/L 1.22 Ionized Calcium 1.08 - 1.30 mmol/L 1.29 Magnesium 1.7 - 2.3 mg/dL 2.7 (H) 2.0 WSR 0 - 20 mm/hr 49 (H) 55 (H) 47 (H) CRP <0.9 mg/dL 1.8 (H) 2.1 (H) 3.3 (H) TSH 0.270 - 4.200 mIU/L 1.870 Rheumatoid Factor <16 IU/mL <10 STEPH Scr Qual Negative Negative Vitamin D 25 Hydroxy 31.0 - 80.0 ng/mL 33.7 PTH, Intact 15 - 65 pg/mL 35 06/22/2023 XR lumbar 3 view/AP RESULT: 5 nonrib-bearing lumbar type vertebrae. For numbering purposes, L4-5 is at the level of the iliac crest. Moderate spondylosis and osteophytosis throughout. Multilevel moderate to severe disc space narrowing. Degenerative change involving the posterior elements from L3 through S1. Mild posterior position of L2 on L3 and L3 on L4. Mild anterior position of L4 on L5. Dextroscoliosis of 16 degrees as measured from inferior L1 to inferior L4. 06/22/2023 x-ray cervical spine 4 view: Moderate to severe disc space narrowing and osteophytosis is seen at C3-4, C4-5, C5-6 and C6-7. Normal alignment. No fracture or prevertebral swelling. Multilevel moderate foraminal encroachment from C3-3-4 through C6-7 bilaterally. HISTORIES FAMILY HISTORY Problem Relation Age of Onset Heart Mother Hypertension Mother Hypertension Father Renal Disease Father Asthma No Family History COPD No Family History PAST MEDICAL HISTORY Diagnosis Date Diarrhea Generalized osteoarthrosis, unspecified site HTN (hypertension) Lung nodule repeat ct in spring, benign Other and unspecified hyperlipidemia Rectal bleeding PAST SURGICAL HISTORY Procedure Laterality Date COLONOSCOPY 08/26/2005 VJ - scattered tic EGD 08/26/2005 VJ - normal PAST SURGICAL HISTORY OF Right carpal tunnel on the right hand PAST SURGICAL HISTORY OF Right arthoscopy on the right knee PAST SURGICAL HISTORY OF Right 01/2016 ORIF right ankle, 2 small screws remain by Dr. Bedoya PAST SURGICAL HISTORY OF N/A 01/2023 Dental work. Extracted all teeth, dentures now in place. TOTAL HIP REPLACEMENT Left 07/17/2021 Left total hip arthroplasty TOTAL KNEE REPLACEMENT Right 12/25/2021 Right total knee replacement UNSPECIFIED ORAL SURGERY PROCEDURE, BY REPORT wisdom teeth removed. Social History Tobacco Use Smoking status: Former Packs/day: 0.50 Years: 20.00 Additional pack years: 0.00 Total pack years: 10.00 Types: Cigarettes Quit date: 11/08/2000 Years since quittin.7 Smokeless tobacco: Never Tobacco comments: 2003 quit Vaping Use Vaping Use: Never used Substance Use Topics Alcohol use: No Drug use: No ACTIVE PROBLEM LIST Mixed Hyperlipidemia Pyogenic Granuloma Glomus Tumor Osteoarthritis Essential Hypertension, Benign Morbid Obesity Due to Excess Calories (Hcc) Lung Nodule Ckd (Chronic Kidney Disease) Stage 3, Gfr 30-59 Ml/Min (Hcc) Atrial Tachycardia Ventricular Tachycardia, Nonsustained (Hcc) Chronic Right-Sided Low Back Pain With Right-Sided Sciatica Primary Osteoarthritis of Right Knee Former Smoker History of Total Hip Arthroplasty, Left Syncope, Cardiogenic Palpitations Obesity, Class III, BMI >= 40 Coronary Artery Disease Involving [place] Coronary Artery of [place] Heart Without Angina Pectoris Statin Intolerance Paroxysmal Atrial Fibrillation (Hcc) Hypothyroidism, Acquired Bilateral Carotid Artery Stenosis Current Outpatient Medications Medication Sig Dispense Refill fluticasone (FLONASE) 50 mcg/actuation nasal spray Use 2 Sprays in each nostril once daily. Rinse mouth after use. 1 Each 2 apixaban (ELIQUIS) 5 mg tab(s) Take 1 tablet by mouth two times a day. 180 tablet 3 hydroCHLOROthiazide 25 mg tablet Take 1 tablet by mouth once daily. 90 tablet 1 levothyroxine (LEVOXYL) 112 mcg tablet Take 1 tablet by mouth once daily. Take on empty stomach. For thyroid. 90 tablet 1 clotrimazole (LOTRIMIN AF, CLOTRIMAZOLE,) 1 % cream Apply to affected area twice daily. (Patient not taking: No sig reported) 45 g 0 triamcinolone acetonide (KENALOG) 0.1 % cream Apply 1 application to affected area three times daily. Apply sparingly to area for rash/itching. (Patient not taking: No sig reported) 80 g 0 famotidine (PEPCID) 20 mg tablet Take 1 tablet by mouth at bedtime as needed. 28 tablet 0 cetirizine (ZYRTEC) 10 mg tablet Take 1 tablet by mouth once daily. (Patient not taking: No sig reported) 30 tablet 0 metoprolol succinate ER (TOPROL XL) 25 mg 24 hr tablet Take 1 tablet by mouth once daily. 90 tablet3 ezetimibe (ZETIA) 10 mg tablet Take 1 tablet by mouth once daily. 90 tablet 3 benzonatate (TESSALON PERLES) 100 mg capsule Take 1 capsule by mouth three times daily as needed for cough. (Patient not taking: No sig reported) 30 capsule 0 lisinopril (ZESTRIL, PRINIVIL) 40 mg tablet Take 1 tablet by mouth once daily. 90 tablet 3 CPAP Initiate Auto PAP @ 5-20 cm of water with humidification. Mask (per patient preference) optional chin strap (if indicated) , filters, tubing, humidifier and lifetime supplies. 1 Each 0 acetaminophen (TYLENOL) 500 mg tablet Take 2 tablets by mouth every 8 hours as needed for pain. 90 tablet 0 aspirin, enteric coated (ECOTRIN LOW STRENGTH) 81 mg EC tablet Take 1 tablet by mouth twice daily. (Patient taking differently: Take 81 mg by mouth two times a day. Once daily) 60 tablet 0 multivitamin tablet Take 1 tablet by mouth once daily. No current facility-administered medications for this visit. RSV Vaccine(1 - 1-dose 60+ series) Never done Covid-19 Vaccine(2022- season) due on 05/08/2023 EXAM: BP 128/76 Pulse 68 Resp 16 Wt 107.5 kg (237 lb) SpO2 97% BMI 41.98 kg/m Pleasant older woman, overweight, in no acute distress. Alert and oriented all spheres. Normal affect and cognition. Speech normal. No deficits to learning or comprehension. Skin warm, dry, pink to lips and nailbeds. Normal turgor. Respirations regular and unlabored. Speaking in full sentences. HEENT: NCAT. No scleral icterus or conjunctival injection. 1/4+ TM's clear. Nose and oropharynx free from injection or lesion. Oral membranes moist and pink. No cervical lymph nodes. Thyroid non-tender, no masses, or enlargement. Carotids pulses 2+/4+ without bruits. No JVD with HOB at 30 degrees. Chest is normal shape. Lungs are clear to all shah with good air exchange through out. HRRR without murmur or gallop. No lifts, heaves, or rubs. Extrem: no clubbing or cyanosis. Edema: 0-1/4+. Extremities are warm and pink with prompt capillaryrefill. Positive muscle tender trigger points multiple areas including neck, left shoulder, upper back, upper arms, forearms, low back, bilateral thighs, calves. ASSESSMENT/PLAN: 1. Polyarthralgia - ICD9: 719.49, ICD10: M25.50 (primary diagnosis) Patient has age-related degenerative arthritis multiple areas 2. Mixed hyperlipidemia - ICD9: 272.2, ICD10: E78.[address]zetimibe on hold as this may also cause muscle aching. - EZETIMIBE 10 MG TABLET 3. Lumbar stenosis with neurogenic claudication - ICD9: 724.03, ICD10: M48.062 4. DDD (degenerative disc disease), cervical - ICD9: 722.4, ICD10: M50.30 5. Elevated sed rate - ICD9: 790.1, ICD10: R70.0 Sed rate is in mild to moderate elevation range Going to have her hold ezetimibe, if her aches and pains improved significantly over 2 to 4 weeks we will hold off on gabapentin. If she fails to improve, we will proceed with gabapentin trial 300 mg starting at at bedtime, progressing to AM and then midday as tolerated. Patient's renal function is normal. I feel patient's symptoms correspond more likely to spinal stenosis, cervical stenosis, generalizedarthritis. Patient will follow-up with notifications on progress with above regimen. We will schedule III month for follow-up as a touch point otherwise. Julio Kerns PA-C documented in this encounterWay[facility]23 NotePatient Outreach ([facility]) DAYANARA GONZALEZ ([id number]) 1940 F FNS Date Time Provider Department 07/08/23 DARLENE TATE [facility] During your visit today, we recorded the following information about you: Darlene Tate RN 07/08/2023 10:06 AM Signed CDM Telephonic Outreach Provider Action/FYI #2 attempt to contact patient. Contacted for: Routine Telephonic Outreach Contact made with patient: No, left message. Darlene Tate RN July 08, 2023 10:06 AM and Goals/Falls/ADL Update Contact made with patient: No, left message. Darlene Tate RN July 08, 2023 10:06 AM Allergies As of Date: 07/08/2023 Noted Allergy Reaction NSAIDS (NON-STEROIDAL ANTI-INFLAM*11/07/2021 14 - Other: See Comments Comments: Pt. states has cautioned her not to use due to kidney disease [id number] REDUCTASE INHIBIT*07/05/2020 17 - Myalgia Date Reviewed: 06/22/2023 Reviewed by: Nona Webb LPN - Fully Assessed Reason for Visit: CDM [Other] Cmt: Telephonic Outreach Prescriptions as of 07/08/2023 - predniSONE (DELTASONE) 20 mg tablet Take 1 tablet by mouth once daily for 5 days. Take daily with food. - fluticasone (FLONASE) 50 mcg/actuation nasal spray Use 2 Sprays in each nostril once daily. Rinse mouth after use. - apixaban (ELIQUIS) 5 mg tab(s) Take 1 tablet by mouth two times a day. - hydroCHLOROthiazide 25 mg tablet Take 1 tablet by mouth once daily. - levothyroxine (LEVOXYL) 112 mcg tablet Take 1 tablet by mouth once daily. Take on empty stomach. For thyroid. - clotrimazole (LOTRIMIN AF, CLOTRIMAZOLE,) 1 % cream Apply to affected area twice daily. - triamcinolone acetonide (KENALOG) 0.1 % cream Apply 1 application to affected area three times daily. Apply sparingly to area for rash/itching. - famotidine (PEPCID) 20 mg tablet Take 1 tablet by mouth at bedtime as needed. - cetirizine (ZYRTEC) 10 mg tablet Take 1 tablet by mouth once daily. - metoprolol succinate ER (TOPROL XL) 25 mg 24 hr tablet Take 1 tablet by mouth once daily. - ezetimibe (ZETIA) 10 mg tablet Take 1 tablet by mouth once daily. - benzonatate (TESSALON PERLES) 100 mg capsule Take 1 capsule by mouth three times daily as needed for cough. - lisinopril (ZESTRIL, PRINIVIL) 40 mg tablet Take 1 tablet by mouth once daily. - CPAP Initiate Auto PAP @ 5-20 cm of water with humidification. Mask (per patient preference) optional chin strap (if indicated) , filters, tubing, humidifier and lifetime supplies. - acetaminophen (TYLENOL) 500 mg tablet Take 2 tablets by mouth every 8 hours as needed for pain. - aspirin, enteric coated (ECOTRIN LOW STRENGTH) 81 mg EC tablet Take 1 tablet by mouth twice daily. - multivitamin tablet Take 1 tablet by mouth once daily. 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 Neoplasm of uncertain behavior of skin [D48.5] 06/27/2010 01/29/2012 Disturbance of Skin Sensation: tenderness//pain*06/27/2010 01/29/2012 Osteoarthritis [M19.90] 03/31/2011 Essential hypertension, benign [I10] 08/03/2012 Dizziness and giddiness [R42] 09/30/2013 05/26/2016 Morbid obesity due to excess calories (HCC) [E6*06/06/2016 Lung nodule [R91.1] 06/09/2016 CKD (chronic kidney disease) stage 3, GFR 30-59*11/23/2018 Lightheaded [R42] 01/05/2020 12/17/2022 Atrial tachycardia (HCC) [I47.19] 11/05/2020 Ventricular tachycardia, nonsustained (HCC) [I4*11/05/2020 Chronic right-sided low back pain with right-si*11/16/2020 Primary osteoarthritis of right knee [M17.11] 07/10/2021 Former smoker [Z87.891] 07/10/2021 History of total hip arthroplasty, left [Z96.64*07/17/2021 Syncope, cardiogenic [R55] 12/16/2021 Palpitations [R00.2] 12/16/2021 Obesity, Class III, BMI >= 40 [E66.01] 01/27/2022 Atrial fibrillation, persistent (HCC) [I48.19] 01/27/2022 01/27/2022 Dyspnea on exertion [R06.09] 02/14/2022 12/17/2022 Coronary artery disease involving [place] dubose*02/20/2022 Statin intolerance [Z78.9] 06/02/2022 Paroxysmal atrial fibrillation (HCC) [I48.0] 06/02/2022 Hypothyroidism, acquired [E03.9] 09/03/2022 Bilateral carotid artery stenosis [I65.23] 02/04/2023 Encounter Status:Closed by DARLENE TATE on 07/08/23[facility]11-01-2023 NoteHNO ID: [id number] Author: Darlene Tate, RN Service: ? Author Type: Registered Nurse Type: Progress Notes Filed: 07/08/2023 10:06 AM Note Text: [facility] Telephonic Outreach Provider Action/FYI #2 attempt to contact patient. Contacted for: Routine Telephonic Outreach Contact made with patient: No, left message. Darlene Tate RN July 08, 2023 10:06 AM and Goals/Falls/ADL Update Contact made with patient: No, left message. Darlene Tate RN July 08, 2023 10:[address] [facility]11-01-2023 History of Present illness Narrative* Darlene Tate RN - 07/08/2023 10:05 AM EDT [facility] Telephonic Outreach Provider Action/FYI #2 attempt to contact patient. Contacted for: Routine Telephonic Outreach Contact made with patient: No, left message. Darlene Tate RN July 08, 2023 10:06 AM and Goals/Falls/ADL Update Contact made with patient: No, left message. Darlene Tate RN July 08, 2023 10:06 AM documented in this encounterWayne [facility]10-31-2023 NotePatient Outreach ([facility]) DAYANARA GONZALEZ ([id number]) 1940 F FNS Date Time Provider Department 07/07/23 DARLENE TATEG During your visit today, we recorded the following information about you: Darlene Tate RN 07/07/2023 9:46 AM Signed CDM Telephonic Outreach Provider Action/FYI #1 attempt to contact patient. Contacted for: Routine Telephonic Outreach Contact made with patient: No, left message. Darlene Tate RN July 07, 2023 9:45 AM and Goals/Falls/ADL Update Contact made with patient: No, left message. Darlene Tate RN July 07, 2023 9:45 AM Allergies As of Date: 07/07/2023 Noted Allergy Reaction NSAIDS (NON-STEROIDAL ANTI-INFLAM*11/07/2021 14 - Other: See Comments Comments: Pt. states has cautioned her not to use due to kidney disease [id number] REDUCTASE INHIBIT*07/05/2020 17 - Myalgia Date Reviewed: 06/22/2023 Reviewed by: Nona Webb LPN - Fully Assessed Reason for Visit: CDM [Other] Cmt: Telephonic Outreach Prescriptions as of 07/07/2023 - fluticasone (FLONASE) 50 mcg/actuation nasal spray Use 2 Sprays in each nostril once daily. Rinse mouth after use. - apixaban (ELIQUIS) 5 mg tab(s) Take 1 tablet by mouth two times a day. - hydroCHLOROthiazide 25 mg tablet Take 1 tablet by mouth once daily. - levothyroxine (LEVOXYL) 112 mcg tablet Take 1 tablet by mouth once daily. Take on empty stomach. For thyroid. - clotrimazole (LOTRIMIN AF, CLOTRIMAZOLE,) 1 % cream Apply to affected area twice daily. - triamcinolone acetonide (KENALOG) 0.1 % cream Apply 1 application to affected area three times daily. Apply sparingly to area for rash/itching. - famotidine (PEPCID) 20 mg tablet Take 1 tablet by mouth at bedtime as needed. - cetirizine (ZYRTEC) 10 mg tablet Take 1 tablet by mouth once daily. - metoprolol succinate ER (TOPROL XL) 25 mg 24 hr tablet Take 1 tablet by mouth once daily. - ezetimibe (ZETIA) 10 mg tablet Take 1 tablet by mouth once daily. - benzonatate (TESSALON PERLES) 100 mg capsule Take 1 capsule by mouth three times daily as needed for cough. - lisinopril (ZESTRIL, PRINIVIL) 40 mg tablet Take 1 tablet by mouth once daily. - CPAP Initiate Auto PAP @ 5-20 cm of water with humidification. Mask (per patient preference) optional chin strap (if indicated) , filters, tubing, humidifier and lifetime supplies. - acetaminophen (TYLENOL) 500 mg tablet Take 2 tablets by mouth every 8 hours as needed for pain. - aspirin, enteric coated (ECOTRIN LOW STRENGTH) 81 mg EC tablet Take 1 tablet by mouth twice daily. - multivitamin tablet Take 1 tablet by mouth once daily. 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 Neoplasm of uncertain behavior of skin [D48.5] 06/27/2010 01/29/2012 Disturbance of Skin Sensation: tenderness//pain*06/27/2010 01/29/2012 Osteoarthritis [M19.90] 03/31/2011 Essential hypertension, benign [I10] 08/03/2012 Dizziness and giddiness [R42] 09/30/2013 05/26/2016 Morbid obesity due to excess calories (HCC) [E6*06/06/2016 Lung nodule [R91.1] 06/09/2016 CKD (chronic kidney disease) stage 3, GFR 30-59*11/23/2018 Lightheaded [R42] 01/05/2020 12/17/2022 Atrial tachycardia (HCC) [I47.19] 11/05/2020 Ventricular tachycardia, nonsustained (HCC) [I4*11/05/2020 Chronic right-sided low back pain with right-si*11/16/2020 Primary osteoarthritis of right knee [M17.11] 07/10/2021 Former smoker [Z87.891] 07/10/2021 History of total hip arthroplasty, left [Z96.64*07/17/2021 Syncope, cardiogenic [R55] 12/16/2021 Palpitations [R00.2] 12/16/2021 Obesity, Class III, BMI >= 40 [E66.01] 01/27/2022 Atrial fibrillation, persistent (HCC) [I48.19] 01/27/2022 01/27/2022 Dyspnea on exertion [R06.09] 02/14/2022 12/17/2022 Coronary artery disease involving [place]*02/20/2022 Statin intolerance [Z78.9] 06/02/2022 Paroxysmal atrial fibrillation (HCC) [I48.0] 06/02/2022 Hypothyroidism, acquired [E03.9] 09/03/2022 Bilateral carotid artery stenosis [I65.23] 02/04/2023 Encounter Status:Closed by DARLENE TATE on 07/07/23[facility]10-31-2023 NoteHNO ID: [id number] Author: Darlene Tate RN Service: ? Author Type: Registered Nurse Type: Progress Notes Filed: 07/07/2023 9:46 AM Note Text: [facility] Telephonic Outreach Provider Action/FYI #1 attempt to contact patient. Contacted for: Routine Telephonic Outreach Contact made with patient: No, left message. Darlene Tate RN July 07, 2023 9:45 AM and Goals/Falls/ADL Update Contact made with patient: No, left message. Darlene Tate RN July 07, 2023 9:[address] [facility]10-31-2023 History of Present illness Narrative* Darlene Tate RN - 07/07/2023 9:19 AM EDT [facility] Telephonic Outreach Provider Action/FYI #1 attempt to contact patient. Contacted for: Routine Telephonic Outreach Contact made with patient: No, left message. Darlene Tate RN July 07, 2023 9:45 AM and Goals/Falls/ADL Update Contact made with patient: No, left message. Darlene Tate RN July 07, 2023 9:45 AM documented in this encounterWay[facility]10-20-2023 Miscellaneous Notes* Telephone Encounter - Nona Webb LPN - 06/26/2023 10:54 AM EDT Faxed as requested. * Telephone Encounter - Norm Sharif MD - 06/26/2023 9:13 AM EDT Printed. * Telephone Encounter - Bradley Loo LPN - 06/24/2023 11:14 AM EDT Pt notified. She states she is ok to wait until provider returns on Thursday. Bradley Loo LPN * Telephone Encounter - Norm Sharif MD - 06/24/2023 11:03 AM EDT I can place order but cannot print until Thursday * Telephone Encounter - Maral Carroll RN - 06/24/2023 9:37 AM EDT Patient calls and states that she needs CPAP supplies. Patient asking if provider can place an order for these? Patient states that she uses [facility] Fax number [phone]. Please review and advise, Maral Carroll RN documented in this encounterWayne [facility]10-18-2023 NoteHNO ID: [id number] Author: Darlene Tate RN Service: ? Author Type: Registered Nurse Type: Progress Notes Filed: 06/24/2023 4:28 PM Note Text: Care Coordination Deferred Outreach Provider Action / FYI: Patient had appointment with PCP Norm Sharif MD on 06-22-23. Deferred outreach to patient at this time due to: Chart Review Only and recent provider visit. Next Outreach date: 07-06-23 Darlene Tate RN June 24, 2023 4:27 [facility]10-18-2023 History of Present illness Narrative* Darlene Tate RN - 06/24/2023 4:27 PM EDT Care Coordination Deferred Outreach Provider Action / FYI: Patient had appointment with PCP Norm Sharif MD on 06-22-23. Deferred outreach to patient at this time due to: Chart Review Only and recent provider visit. Next Outreach date: 07-06-23 Darlene Tate RN June 24, 2023 4:27 PM documented in this encounterWay[facility]10-18-2023 NotePatient Outreach ([facility]) DAYANARA GONZALEZ ([id number]) 1940 F FNS Date Time Provider Department 06/24/23 DARLENE TATE [facility] During your visit today, we recorded the following information about you: Darlene Tate RN 06/24/2023 4:28 PM Signed Care Coordination Deferred Outreach Provider Action / FYI: Patient had appointment with PCP Norm Sharif MD on 06-22-23. Deferred outreach to patient at this time due to: Chart Review Only and recent provider visit. Next Outreach date: 07-06-23 Darlene Tate RN June 24, 2023 4:27 PM Allergies As of Date: 06/24/2023 Noted Allergy Reaction NSAIDS (NON-STEROIDAL ANTI-INFLAM*11/07/2021 14 - Other: See Comments Comments: Pt. states has cautioned her not to use due to kidney disease [id number]-[id number]-EHH REDUCTASE INHIBIT*07/05/2020 17 - Myalgia Date Reviewed: 06/22/2023 Reviewed by: Nona Webb LPN - Fully Assessed Reason for Visit: CDM [Other] Cmt: Telephonic Outreach Prescriptions as of 06/24/2023 - fluticasone (FLONASE) 50 mcg/actuation nasal spray Use 2 Sprays in each nostril once daily. Rinse mouth after use. - apixaban (ELIQUIS) 5 mg tab(s) Take 1 tablet by mouth two times a day. - hydroCHLOROthiazide 25 mg tablet Take 1 tablet by mouth once daily. - levothyroxine (LEVOXYL) 112 mcg tablet Take 1 tablet by mouth once daily. Take on empty stomach. For thyroid. - clotrimazole (LOTRIMIN AF, CLOTRIMAZOLE,) 1 % cream Apply to affected area twice daily. - triamcinolone acetonide (KENALOG) 0.1 % cream Apply 1 application to affected area three times daily. Apply sparingly to area for rash/itching. - famotidine (PEPCID) 20 mg tablet Take 1 tablet by mouth at bedtime as needed. - cetirizine (ZYRTEC) 10 mg tablet Take 1 tablet by mouth once daily. - metoprolol succinate ER (TOPROL XL) 25 mg 24 hr tablet Take 1 tablet by mouth once daily. - ezetimibe (ZETIA) 10 mg tablet Take 1 tablet by mouth once daily. - benzonatate (TESSALON PERLES) 100 mg capsule Take 1 capsule by mouth three times daily as needed for cough. - lisinopril (ZESTRIL, PRINIVIL) 40 mg tablet Take 1 tablet by mouth once daily. - CPAP Initiate Auto PAP @ 5-20 cm of water with humidification. Mask (per patient preference) optional chin strap (if indicated) , filters, tubing, humidifier and lifetime supplies. - acetaminophen (TYLENOL) 500 mg tablet Take 2 tablets by mouth every 8 hours as needed for pain. - aspirin, enteric coated (ECOTRIN LOW STRENGTH) 81 mg EC tablet Take 1 tablet by mouth twice daily. - multivitamin tablet Take 1 tablet by mouth once daily. 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 Neoplasm of uncertain behavior of skin [D48.5] 06/27/2010 01/29/2012 Disturbance of Skin Sensation: tenderness//pain*06/27/2010 01/29/2012 Osteoarthritis [M19.90] 03/31/2011 Essential hypertension, benign [I10] 08/03/2012 Dizziness and giddiness [R42] 09/30/2013 05/26/2016 Morbid obesity due to excess calories (HCC) [E6*06/06/2016 Lung nodule [R91.1] 06/09/2016 CKD (chronic kidney disease) stage 3, GFR 30-59*11/23/2018 Lightheaded [R42] 01/05/2020 12/17/2022 Atrial tachycardia (HCC) [I47.19] 11/05/2020 Ventricular tachycardia, nonsustained (HCC) [I4*11/05/2020 Chronic right-sided low back pain with right-si*11/16/2020 Primary osteoarthritis of right knee [M17.11] 07/10/2021 Former smoker [Z87.891] 07/10/2021 History of total hip arthroplasty, left [Z96.64*07/17/2021 Syncope, cardiogenic [R55] 12/16/2021 Palpitations [R00.2] 12/16/2021 Obesity, Class III, BMI >= 40 [E66.01] 01/27/2022 Atrial fibrillation, persistent (HCC) [I48.19] 01/27/2022 01/27/2022 Dyspnea on exertion [R06.09] 02/14/2022 12/17/2022 Coronary artery disease involving [place]*02/20/2022 Statin intolerance [Z78.9] 06/02/2022 Paroxysmal atrial fibrillation (HCC) [I48.0] 06/02/2022 Hypothyroidism, acquired [E03.9] 09/03/2022 Bilateral carotid artery stenosis [I65.23] 02/04/2023 Encounter Status:Closed by DARLENE TATE on 06/24/23[facility]10-18-2023 Miscellaneous Notes* Telephone Encounter - Bradley Loo LPN - 06/24/2023 11:14 AM EDT Order faxed to [facility] ([phone]). Bradley Loo LPN * Telephone Encounter - Norm Sharif MD - 06/24/2023 11:02 AM EDT Order placed. * Telephone Encounter - Azul Garner - 06/24/2023 9:09 AM EDT Spoke with patient and informed of results. She's willing to try PT. Would like order faxed to [facility] in [place]. Azul Garner * Telephone Encounter - Norm Sharif MD - 06/23/2023 5:22 PM EDT Xrays show degenerative changes. Let me know if interested in trying physical therapy. [facility] in [facility]23 Miscellaneous Notes* Telephone Encounter - Florinda Null LPN - 06/23/2023 10:43 AM EDT Pt notified of same. Verbalizes understanding. Florinda Null LPN * Telephone Encounter - Norm Sharif MD - 06/23/2023 10:31 AM EDT Sometimes it can be due to issues like hydration or calcium etc. Recheck additional labs for that but push fluids. * Telephone Encounter - Dayan Espinal LPN - 06/23/2023 9:41 AM EDT Pt notified of results and provider message. Pt reports she does not take any otc magnesium or multivitamins. Dayan Espinal LPN * Telephone Encounter - Florinda Null LPN - 06/23/2023 8:31 AM EDT Left message for pt to contact office. Florinda Null PATTERN ASSEMBLER * Telephone Encounter - Norm Sharif MD - 06/23/2023 8:18 AM EDT Her thyroid is good. Her inflammatory markers are mildly up Recheck labs in two weeks. Call if any signs of infection etc. Her magnesium is up. Is she taking any otc mag or vitamins that include magnesium. documented in this encounterWay[facility]10-16-2023 NoteHNO ID: [id number] Author: Nicole Langley RT(R) Service: Radiology Author Type: Technologist Type: Progress Notes Filed: 06/22/2023 11:53 AM Note Text: Radiology Service Progress Note PATIENT NAME: Dayanara Gonzalez DATE OF SERVICE: June 22, 2023 TIME: 11:31 AM PATIENT IDENTITY VERIFICATION COMPLETED USING TWO (2) IDENTIFIERS: Name and Date of confirmed by patient verbally. FALL SCREENING: Has the patient had 2 falls in the last year or 1 fall with injury or currently using an Ambulatory Assistive Device (Walker, Cane, Wheelchair, Crutches, etc.)? Yes, Patient High Risk for Falls What interventions were put in place to prevent falls during this visit? Offered Assistance with Transfers/Clothing and Instructed Patient to Remain Seated (Not on Exam Table) Until Exam PATIENT GENDER DATA: Female. status: : No status: NO. PATIENT RELEVANT IMPLANT DATA REVIEWED: Not Applicable RADIOLOGY DEPARTMENT: General X-ray: Exam(s) Completed: Spine X-Ray(s): Cervical AP / LAT / OBL and Lumbar AP / LAT / L5-S1 PERIPHERAL IV DATA: Not applicable SIGNED BY: Nicole Langley RT(R) June 22, 2023 11:[address] [facility]10-16-2023 NoteHNO ID: [id number] Author: Norm Sharif MD Service: ? Author Type: Physician Type: Progress Notes Filed: 06/22/2023 11:11 AM Note Text: Patient presents with: 6 Month Exam HPI: Patient presents today for office visit for follow up. Muscle pain in bilateral thighs. Has exercises that she does daily. About the past 6-8 month gets a burning in her muscles in thighs when trying to do them. No new back pain. Not on statins. Is intolerant of statins. Left arm pain. Whole arm hurts and has a tingling in her hand. Does admit to some pain in her neck also. Has been there for three or four months. No trauma. No weakness. HTN: Patient is compliant with meds Yes Monitors bp at home: brings reading to office. Home bp has been good. Denies side effects: yes. Chest pain: No. Dyspnea: No. Edema: stable. Palpitations: No. Syncope: No. Headache: yes. Dizziness: No. Has a dry cough. Tickle that will get so bad causing her to dry heave. Is on lio. Has been at least a month. No gerd started with a runny nose. CATHERINE: uses CPAP regularly. Not right now. Trouble with [employer] ordered supplies in February. Going to speak with insurance about changing. Has generalized itching for three to four months. Can get welts if she scratches. No jaundice. No heartburn. Has a trigger finger on her right index. Declines ortho. Component Latest Ref Rng AND Units 06/08/2023 WBC 3.70 - 11.00 k/uL 8.54 RBC 3.90 - 5.20 m/uL 4.12 Hemoglobin 11.5 - 15.5 g/dL 12.2 Hematocrit 36.0 - 46.0 % 37.2 MCV 80.0 - 100.0 fL 90.3 MCH 26.0 - 34.0 pg 29.6 MCHC 30.5 - 36.0 g/dL 32.8 RDW-CV 11.5 - 15.0 % 12.9 Platelet Count 150 - 400 k/uL 279 MPV 9.0 - 12.7 fL 10.4 Neut% % 66.7 Abs Neut (ANC) 1.45 - 7.50 k/uL 5.70 Lymph% % 18.4 Abs Lymph 1.00 - 4.00 k/uL 1.57 [place]% % 10.7 Abs [place] <0.87 k/uL 0.91 (H) Eosin% % 3.5 Abs Eosin <0.46 k/uL 0.30 Baso% % 0.6 Abs Baso <0.11 k/uL 0.05 Immature Gran % % 0.1 IMMATURE GRANS (ABS) <0.10 k/uL <0.03 NRBC /100 WBC 0.0 Absolute nRBC <0.01 k/uL <0.01 DTYPE Auto Protein, Total 6.3 - 8.0 g/dL 7.1 Albumin 3.9 - 4.9 g/dL 4.1 Calcium 8.5 - 10.2 mg/dL 8.8 Bilirubin, Total 0.2 - 1.3 mg/dL 0.3 Alkaline Phosphatase 34 - 123 U/L 59 AST 13 - 35 U/L 18 ALT 7 - 38 U/L 9 Glucose 74 - 99 mg/dL 84 BUN 7 - 21 mg/dL 25 (H) Creatinine 0.58 - 0.96 mg/dL 0.95 Sodium 136 - 144 mmol/L 140 Potassium 3.7 - 5.1 mmol/L 4.2 Chloride 97 - 105 mmol/L 102 CO2 22 - 30 mmol/L 23 Anion Gap 9 - 18 mmol/L 15 eGFR >=60 mL/min/1.73mA? 60 Cholesterol, Total <200 mg/dL 229 (H) Triglyceride <150 mg/dL 104 HDL Cholesterol >39 mg/dL 64 Non HDL Cholesterol <130 mg/dL 165 (H) Fasting Time hrs 12 VLDL Cholesterol <30 mg/dL 21 TC:HDL Ratio <5.10 3.58 LDL Cholesterol <100 mg/dL 144 (H) LDL:HDL Ratio <2.54 2.25 MEDICATIONS: Current Outpatient Medications Medication Sig acetaminophen (TYLENOL) 500 mg tablet Take 2 tablets by mouth every 8 hours as needed for pain. apixaban (ELIQUIS) 5 mg tab(s) Take 1 tablet by mouth two times a day. aspirin, enteric coated (ECOTRIN LOW STRENGTH) 81 mg EC tablet Take 1 tablet by mouth twice daily. (Patient taking differently: Take 81 mg by mouth twice daily. Once daily) benzonatate (TESSALON PERLES) 100 mg capsule Take 1 capsule by mouth three times daily as needed for cough. (Patient not taking: No sig reported) cetirizine (ZYRTEC) 10 mg tablet Take 1 tablet by mouth once daily. (Patient not taking: No sig reported) clotrimazole (LOTRIMIN AF, CLOTRIMAZOLE,) 1 % cream Apply to affected area twice daily. (Patient not taking: No sig reported) CPAP Initiate Auto PAP @ 5-20 cm of water with humidification. Mask (per patient preference) optional chin strap (if indicated) , filters, tubing, humidifier and lifetime supplies. ezetimibe (ZETIA) 10 mg tablet Take 1 tablet by mouth once daily. famotidine (PEPCID) 20 mg tablet Take 1 tablet by mouth at bedtime as needed. (Patient not taking: No sig reported) hydroCHLOROthiazide 25 mg tablet Take 1 tablet by mouth once daily. levothyroxine (LEVOXYL) 112 mcg tablet Take 1 tablet by mouth once daily. Take on empty stomach. For thyroid. lisinopril (ZESTRIL, PRINIVIL) 40 mg tablet Take 1 tablet by mouth once daily. metoprolol succinate ER (TOPROL XL) 25 mg 24 hr tablet Take 1 tablet by mouth once daily. multivitamin tablet Take 1 tablet by mouth once daily. (Patient not taking: No sig reported) triamcinolone acetonide (KENALOG) 0.1 % cream Apply 1 application to affected area three times daily. Apply sparingly to area for rash/itching. (Patient not taking: No sig reported) No current facility-administered medications for this visit. ALLERGIES: ALLERGIES Allergen Reactions Nsaids (Non-Steroid* Other: See Comments Pt. states has cautioned her not to use due to kidney disease Uumqaud-Ptb-Ico Red* Myalgia PAST MEDICAL HISTORY Diagnosis Date Diarrhea Generaliz (more content not included)...[facility]10-16-2023 History of Present illness Narrative* Norm Sharif MD - 06/22/2023 10:18 AM EDT Patient presents with: 6 Month Exam HPI: Patient presents today for office visit for follow up. Muscle pain in bilateral thighs. Has exercises that she does daily. About the past 6-8 month gets aburning in her muscles in thighs when trying to do them. No new back pain. Not on statins. Is intolerant of statins. Left arm pain. Whole arm hurts and has a tingling in her hand. Does admit to some pain in her neck also. Has been there for three or four months. No trauma. No weakness. HTN: Patient is compliant with meds Yes Monitors bp at home: brings reading to office. Home bp has been good. Denies side effects: yes. Chest pain: No. Dyspnea: No. Edema: stable. Palpitations: No. Syncope: No. Headache: yes. Dizziness: No. Has a dry cough. Tickle that will get so bad causing her to dry heave. Is on lio. Has been at leasta month. No gerd started with a runny nose. CATHERINE: uses CPAP regularly. Not right now. Trouble with [employer] ordered supplies in February. Going to speak with insurance about changing. Has generalized itching for three to four months. Can get welts if she scratches. No jaundice. No heartburn. Has a trigger finger on her right index. Declines ortho. Component Latest Ref Rng & Units 06/08/2023 WBC 3.70 - 11.00 k/uL 8.54 RBC 3.90 - 5.20 m/uL 4.12 Hemoglobin 11.5 - 15.5 g/dL 12.2 Hematocrit 36.0 - 46.0 % 37.2 MCV 80.0 - 100.0 fL 90.3 MCH 26.0 - 34.0 pg 29.6 MCHC 30.5 - 36.0 g/dL 32.8 RDW-CV 11.5 - 15.0 % 12.9 Platelet Count 150 - 400 k/uL 279 MPV 9.0 - 12.7 fL 10.4 Neut% % 66.7 Abs Neut (ANC) 1.45 - 7.50 k/uL 5.70 Lymph% % 18.4 Abs Lymph 1.00 - 4.00 k/uL 1.57 [place]% % 10.7 Abs [place] <0.87 k/uL 0.91 (H) Eosin% % 3.5 Abs Eosin <0.46 k/uL 0.30 Baso% % 0.6 Abs Baso <0.11 k/uL 0.05 Immature Gran % % 0.1 IMMATURE GRANS (ABS) <0.10 k/uL <0.03 NRBC /100 WBC 0.0 Absolute nRBC <0.01 k/uL <0.01 DTYPE Auto Protein, Total 6.3 - 8.0 g/dL 7.1 Albumin 3.9 - 4.9 g/dL 4.1 Calcium 8.5 - 10.2 mg/dL 8.8 Bilirubin, Total 0.2 - 1.3 mg/dL 0.3 Alkaline Phosphatase 34 - 123 U/L 59 AST 13 - 35 U/L 18 ALT 7 - 38 U/L 9 Glucose 74 - 99 mg/dL 84 BUN 7 - 21 mg/dL 25 (H) Creatinine 0.58 - 0.96 mg/dL 0.95 Sodium 136 - 144 mmol/L 140 Potassium 3.7 - 5.1 mmol/L 4.2 Chloride 97 - 105 mmol/L 102 CO2 22 - 30 mmol/L 23 Anion Gap 9 - 18 mmol/L 15 eGFR >=60 mL/min/1.73m 60 Cholesterol, Total <200 mg/dL 229 (H) Triglyceride <150 mg/dL 104 HDL Cholesterol >39 mg/dL 64 Non HDL Cholesterol <130 mg/dL 165 (H) Fasting Time hrs 12 VLDL Cholesterol <30 mg/dL 21 TC:HDL Ratio <5.10 3.58 LDL Cholesterol <100 mg/dL 144 (H) LDL:HDL Ratio <2.54 2.25 MEDICATIONS: Current Outpatient Medications Medication Sig acetaminophen (TYLENOL) 500 mg tablet Take 2 tablets by mouth every 8 hours as needed for pain. apixaban (ELIQUIS) 5 mg tab(s) Take 1 tablet by mouth two times a day. aspirin, enteric coated (ECOTRIN LOW STRENGTH) 81 mg EC tablet Take 1 tablet by mouth twice daily. (Patient taking differently: Take 81 mg by mouth twice daily. Once daily) benzonatate (TESSALON PERLES) 100 mg capsule Take 1 capsule by mouth three times daily as needed for cough. (Patient not taking: No sig reported) cetirizine (ZYRTEC) 10 mg tablet Take 1 tablet by mouth once daily. (Patient not taking: No sig reported) clotrimazole (LOTRIMIN AF, CLOTRIMAZOLE,) 1 % cream Apply to affected area twice daily. (Patient not taking: No sig reported) CPAP Initiate Auto PAP @ 5-20 cm of water with humidification. Mask (per patient preference) optional chin strap (if indicated) , filters, tubing, humidifier and lifetime supplies. ezetimibe (ZETIA) 10 mg tablet Take 1 tablet by mouth once daily. famotidine (PEPCID) 20 mg tablet Take 1 tablet by mouth at bedtime as needed. (Patient not taking: No sig reported) hydroCHLOROthiazide 25 mg tablet Take 1 tablet by mouth once daily. levothyroxine (LEVOXYL) 112 mcg tablet Take 1 tablet by mouth once daily. Take on empty stomach. For thyroid. lisinopril (ZESTRIL, PRINIVIL) 40 mg tablet Take 1 tablet by mouth once daily. metoprolol succinate ER (TOPROL XL) 25 mg 24 hr tablet Take 1 tablet by mouth once daily. multivitamin tablet Take 1 tablet by mouth once daily. (Patient not taking: No sig reported) triamcinolone acetonide (KENALOG) 0.1 % cream Apply 1 application to affected area three times daily. Apply sparingly to area for rash/itching. (Patient not taking: No sig reported) No current facility-administered medications for this visit. ALLERGIES: ALLERGIES Allergen Reactions Nsaids (Non-Steroid* Other: See Comments Pt. states has cautioned her not to use due to kidney disease Fvmxslc-Ptn-Sqi Red* Myalgia PAST MEDICAL HISTORY Diagnosis Date Diarrhea Generalized osteoarthrosis, unspecified site HTN (hypertension) Lung nodule repeat ct in spring, benign Other and unspecified hyperlipidemia Rectal bleeding PAST SURGICAL HISTORY Procedure Laterality Date COLONOSCOPY 08/26/2005 VJ - scattered tic EGD 08/26/2005 VJ - normal PAST SURGICAL HISTORY OF Right carpal tunnel on the right hand PAST SURGICAL HISTORY OF Right arthoscopy on the right knee PAST SURGICAL HISTORY OF Right 01/2016 ORIF right ankle, 2 small screws remain by Dr. Bedoya PAST SURGICAL HISTORY OF N/A 01/2023 Dental work. Extracted all teeth, dentures now in place. TOTAL HIP REPLACEMENT Left 07/17/2021 Left total hip arthroplasty TOTAL KNEE REPLACEMENT Right 12/25/2021 Right total knee replacement UNSPECIFIED ORAL SURGERY PROCEDURE, BY REPORT wisdom teeth removed. FAMILY HISTORY Problem Relation Age of Onset Heart Mother Hypertension Mother Hypertension Father Renal Disease Father Asthma No Family History COPD No Family History Social History Tobacco Use Smoking status: Former Packs/day: 0.50 Years: 20.00 Additional pack years: 0.00 Total pack years: 10.00 Types: Cigarettes Quit date: 11/08/2000 Years since quittin.6 Smokeless tobacco: Never Tobacco comments: 2003 quit Vaping Use Vaping Use: Never used Substance Use Topics Alcohol use: No Drug use: No Reviewed current medications, allergies, past medical history, surgical history, family history andsocial history today. REVIEW OF SYSTEMS All other reviewed and negative other than HPI. HEALTH MAINTENANCE: Reviewed health maintenance issues today and recommended the following in detail. Influenza Vaccine(1) due on 05/08/2023 Covid-19 Vaccine(2022- season) due on 05/08/2023 VITALS: BP 138/86 Pulse 67 Wt 107.5 kg (237 lb) SpO2 97% BMI 41.98 kg/m Last 4 Encounter Wt Readings: Date: Wt: 02/09/2023 107 kg (236 lb) 12/31/2022 110.7 kg (244 lb) 12/17/2022 107 kg (236 lb) 10/06/2022 108 kg (238 lb) PHYSICAL EXAMINATION: General appearance: Well appearing, alert, in no acute distress, well-hydrated, well nourished. Skin: Skin color, texture, turgor normal, no suspicious rashes or lesions. No dermatographism. Use lotion to help with dry skin. Head: Normocephalic, no masses, lesions, tenderness or abnormalities Back: Normal exam Lungs: Lungs clear to auscultation. No wheezing, rhonchi, rales Heart: RRR without murmur, gallop, or rubs. No ectopy Abdomen: Normal abdominal exam, Abdomen soft, non-tender. Bowel sounds normal. No masses, organomegaly ASSESSMENT/PLAN: 1. Itching - ICD9: 698.9, ICD10: L29.9 (primary diagnosis) - can use claritin prn. Cbc and liver are ok. Consider derm Call if symptoms worsen at all or if not better in one to two weeks - Red flags for re-assessment reviewed with patient in detail. - SED RATE WESTERGREN - C-REACTIVE PROTEIN (CRP) 2. Encounter for immunization - ICD9: V03.89, ICD10: Z23 - INFLUENZA VACCINE, PRSV FREE, AGE 65+ YR, HIGH DOSE, QUADRIVALENT (FLUZONE HIGH-DOSE) 3. Neck pain - ICD9: 723.1, ICD10: M54.2 - consider therapy - XR CERV OTHER 4V AP/LAT/OBL 4. Pain in both lower extremities - ICD9: 729.5, ICD10: M79.604, M79.605 -consider therapy. - XR LUMBAR GENERAL 3V AP/LAT/L5-S1 5. Postnasal drip - ICD9: 784.91, ICD10: R09.82 - Discussed risks and benefits of new medication with the patient. Advised them to call if any sideeffects or questions. Red flags for re-assessment reviewed with patient in detail. Call if symptoms worsen at all or if not better in one to two weeks Reviewed diagnosis and treatment options in detail. Questions were answered. Patient expressed understanding of treatment plan. - consider chest xray and switching bp meds. - FLUTICASONE PROPIONATE 50 MCG/ACTUATION NASAL SPRAY,SUSPENSION 6. Mixed hyperlipidemia - ICD9: 272.2, ICD10: E78.2 - MAGNESIUM BLD 7. Essential hypertension, benign - ICD9: 401.1, ICD10: I10 - check labs 8. Coronary artery disease involving [place] coronary artery of [place] heart without angina pectoris- ICD9: 414.01, ICD10: I25.10 - per cardiology 9. Paroxysmal atrial fibrillation (HCC) - ICD9: 427.31, ICD10: I48.0 - per cardiology 10. Hypothyroidism, acquired - ICD9: 244.9, ICD10: E03.9 - check labs. - TSH BLD 11. Stage 3 chronic kidney disease, unspecified whether stage 3a or 3b CKD (HCC) - ICD9: 585.3, ICD10: N18.30 - stable. Norm Sharif MD documented in this encounterWay[facility]09-21-2023 NoteHNO ID: [id number] Author: Phuong Chowdary RN Service: ? Author Type: Registered Nurse Type: Progress Notes Filed: 05/28/2023 12:11 PM Note Text: CDM Telephonic Outreach Provider Action/FYI CKD outreach Doing very well, no needs or concerns today Contacted for: Routine Telephonic Outreach Contact made with patient: Yes Patient identified by name and date of . Discussed care with patient Are you experiencing any new or worsening symptoms you need to talk about today? No Disease Specific Do you check your blood pressure at home? Yes, Enter readings: WNL Do you have new or worsening shortness of breath with activity? No Do you feel like you are dehydrated for any reason, including not being able to eat or drink normally, or having less urine/much darker urine than normal for you? No Do you check your daily weight at home? Yes, Have you noticed a sudden gain in weight greater than three pounds in a day or three pounds in a week? 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 Routed to: No Action Needed MICHELLE Education Provided this Outreach: No Phuong Chowdary RN May 28, 2023 12:10 [facility]09-21-2023 NotePatient Outreach ([facility]) DAYANARA GONZALEZ ([id number]) 1940 F FNS Date Time Provider Department 05/28/23 PHUONG CHOWDARY During your visit today, we recorded the following information about you: Phuong Chowdary RN 05/28/2023 12:11 PM Signed [facility] Telephonic Outreach Provider Action/FYI CKD outreach Doing very well, no needs or concerns today Contacted for: Routine Telephonic Outreach Contact made with patient: Yes Patient identified by name and date of . Discussed care with patient Are you experiencing any new or worsening symptoms you need to talk about today? No Disease Specific Do you check your blood pressure at home? Yes, Enter readings: WNL Do you have new or worsening shortness of breath with activity? No Do you feel like you are dehydrated for any reason, including not being able to eat or drink normally, or having less urine/much darker urine than normal for you? No Do you check your daily weight at home? Yes, Have you noticed a sudden gain in weight greater than three pounds in a day or three pounds in a week? 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 Routed to: No Action Needed MICHELLE Education Provided this Outreach: No Phuong Chowdary RN May 28, 2023 12:10 PM Allergies As of Date: 05/28/2023 Noted Allergy Reaction NSAIDS (NON-STEROIDAL ANTI-INFLAM*11/07/2021 14 - Other: See Comments Comments: Pt. states has cautioned her not to use due to kidney disease [id number]-[id number]-HCH REDUCTASE INHIBIT*07/05/2020 17 - Myalgia Date Reviewed: 03/02/2023 Reviewed by: Kapil Yadav MD - Fully Assessed Reason for Visit: community monitoring outreach [Other] Cmt: CDM outreach Prescriptions as of 05/28/2023 - hydroCHLOROthiazide 25 mg tablet Take 1 tablet by mouth once daily. - levothyroxine (LEVOXYL) 112 mcg tablet Take 1 tablet by mouth once daily. Take on empty stomach. For thyroid. - clotrimazole (LOTRIMIN AF, CLOTRIMAZOLE,) 1 % cream Apply to affected area twice daily. - triamcinolone acetonide (KENALOG) 0.1 % cream Apply 1 application to affected area three times daily. Apply sparingly to area for rash/itching. - famotidine (PEPCID) 20 mg tablet Take 1 tablet by mouth at bedtime as needed. - cetirizine (ZYRTEC) 10 mg tablet Take 1 tablet by mouth once daily. - metoprolol succinate ER (TOPROL XL) 25 mg 24 hr tablet Take 1 tablet by mouth once daily. - ezetimibe (ZETIA) 10 mg tablet Take 1 tablet by mouth once daily. - benzonatate (TESSALON PERLES) 100 mg capsule Take 1 capsule by mouth three times daily as needed for cough. - lisinopril (ZESTRIL, PRINIVIL) 40 mg tablet Take 1 tablet by mouth once daily. - CPAP Initiate Auto PAP @ 5-20 cm of water with humidification. Mask (per patient preference) optional chin strap (if indicated) , filters, tubing, humidifier and lifetime supplies. - acetaminophen (TYLENOL) 500 mg tablet Take 2 tablets by mouth every 8 hours as needed for pain. - aspirin, enteric coated (ECOTRIN LOW STRENGTH) 81 mg EC tablet Take 1 tablet by mouth twice daily. - multivitamin tablet Take 1 tablet by mouth once daily. 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 Neoplasm of uncertain behavior of skin [D48.5] 06/27/2010 01/29/2012 Disturbance of Skin Sensation: tenderness//pain*06/27/2010 01/29/2012 Osteoarthritis [M19.90] 03/31/2011 Essential hypertension, benign [I10] 08/03/2012 Dizziness and giddiness [R42] 09/30/2013 05/26/2016 Morbid obesity due to excess calories (HCC) [E6*06/06/2016 Lung nodule [R91.1] 06/09/2016 CKD (chronic kidney disease) stage 3, GFR 30-59*11/23/2018 Lightheaded [R42] 01/05/2020 12/17/2022 Atrial tachycardia (HCC) [I47.1] 11/05/2020 Ventricular tachycardia, nonsustained (HCC) [I4*11/05/2020 Chronic right-sided low back pain with right-si*11/16/2020 Primary osteoarthritis of right knee [M17.11] 07/10/2021 Former smoker [Z87.891] 07/10/2021 History of total hip arthroplasty, left [Z96.64*07/17/2021 Syncope, cardiogenic [R55] 12/16/2021 Palpitations [R00.2] 12/16/2021 Obesity, Class III, BMI >= 40 [E66.01] 01/27/2022 Atrial fibrillation, persistent (HCC) [I48.19] 01/27/2022 01/27/2022 Dyspnea on exertion [R06.09] 02/14/2022 12/17/2022 Coronary artery disease involving [place] dubose*02/20/2022 Statin intolerance [Z78.9] 06/02/2022 Paroxysmal atrial fibrillation (HCC) [I48.0] 06/02/2022 Hypothyroidism, acquired [E03.9] 09/03/2022 Bilateral carotid artery stenosis [I65.23] 02/04/2023 Encounter Status:Closed by PHUONG CHOWDARY on 05/28/23[facility] 05-28-2023 History of Present illness Narrative* Phuong Chowdary RN - 05/28/2023 12:07 PM EDT CDM Telephonic Outreach Provider Action/FYI CKD outreach Doing very well, no needs or concerns today Contacted for: Routine Telephonic Outreach Contact made with patient: Yes Patient identified by name and date of . Discussed care with patient Are you experiencing any new or worsening symptoms you need to talk about today? No Disease Specific Do you check your blood pressure at home? Yes, Enter readings: WNL Do you have new or worsening shortness of breath with activity? No Do you feel like you are dehydrated for any reason, including not being able to eat or drink normally, or having less urine/much darker urine than normal for you? No Do you check your daily weight at home? Yes, Have you noticed a sudden gain in weight greater than three pounds in a day or three pounds in a week? 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 Routed to: No Action Needed MICHELLE Education Provided this Outreach: No Phuong Chowdary RN May 28, 2023 12:10 PM documented in this encounterWayne [facility]08-22-2023 NoteHNO ID: [id number] Author: Darlene Tate RN Service: ? Author Type: Registered Nurse Type: Progress Notes Filed: 04/28/2023 3:52 PM Note Text: CDM Telephonic Outreach Provider Action/FYI No new concerns or complaints related to chronic disease management. Patient does report muscle pain to above her knees. Patient has history of knee replacement surgery and does still do home exercises. If persists she plans to reach out to knee replacement surgeon for recommendations. Contacted for: Routine Telephonic Outreach Contact made with patient: Yes Patient identified by name and date of . Discussed care with patient Are you experiencing any new or worsening symptoms you need to talk about today? No Disease Specific Do you check your blood pressure at home? Yes, Enter readings: 04-23-23 8 am 149/88 In the evening 136/83 in the evening pulse 76. Do you have new or worsening shortness of breath with activity? No Do you feel like you are dehydrated for any reason, including not being able to eat or drink normally, or having less urine/much darker urine than normal for you? No Do you check your daily weight at home? 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 Routed to: No Action Needed MICHELLE Education Provided this Outreach: No Darlene Tate RN April 28, 2023 3:48 [facility]08-22-2023 NotePatient Outreach ([facility]) DAYANARA GONZALEZ ([id number]) 1940 F S Date Time Provider Department 04/28/23 DARLENE TATE [facility] During your visit today, we recorded the following information about you: Darlene Tate RN 04/28/2023 3:52 PM Signed [facility] Telephonic Outreach Provider Action/FYI No new concerns or complaints related to chronic disease management. Patient does report muscle pain to above her knees. Patient has history of knee replacement surgery and does still do home exercises. If persists she plans to reach out to knee replacement surgeon for recommendations. Contacted for: Routine Telephonic Outreach Contact made with patient: Yes Patient identified by name and date of . Discussed care with patient Are you experiencing any new or worsening symptoms you need to talk about today? No Disease Specific Do you check your blood pressure at home? Yes, Enter readings: 04-23-23 8 am 149/88 In the evening 136/83 in the evening pulse 76. Do you have new or worsening shortness of breath with activity? No Do you feel like you are dehydrated for any reason, including not being able to eat or drink normally, or having less urine/much darker urine than normal for you? No Do you check your daily weight at home? 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 Routed to: No Action Needed MICHELLE Education Provided this Outreach: No Darlene Tate RN April 28, 2023 3:48 PM Allergies As of Date: 04/28/2023 Noted Allergy Reaction NSAIDS (NON-STEROIDAL ANTI-INFLAM*11/07/2021 14 - Other: See Comments Comments: Pt. states has cautioned her not to use due to kidney disease [id number] REDUCTASE INHIBIT*07/05/2020 17 - Myalgia Date Reviewed: 03/02/2023 Reviewed by: Kapil Yadav MD - Fully Assessed Reason for Visit: CDM [Other] Cmt: Telephonic Outreach Prescriptions as of 04/28/2023 - hydroCHLOROthiazide 25 mg tablet Take 1 tablet by mouth once daily. - levothyroxine (LEVOXYL) 112 mcg tablet Take 1 tablet by mouth once daily. Take on empty stomach. For thyroid. - clotrimazole (LOTRIMIN AF, CLOTRIMAZOLE,) 1 % cream Apply to affected area twice daily. - triamcinolone acetonide (KENALOG) 0.1 % cream Apply 1 application to affected area three times daily. Apply sparingly to area for rash/itching. - famotidine (PEPCID) 20 mg tablet Take 1 tablet by mouth at bedtime as needed. - cetirizine (ZYRTEC) 10 mg tablet Take 1 tablet by mouth once daily. - metoprolol succinate ER (TOPROL XL) 25 mg 24 hr tablet Take 1 tablet by mouth once daily. - ezetimibe (ZETIA) 10 mg tablet Take 1 tablet by mouth once daily. - benzonatate (TESSALON PERLES) 100 mg capsule Take 1 capsule by mouth three times daily as needed for cough. - lisinopril (ZESTRIL, PRINIVIL) 40 mg tablet Take 1 tablet by mouth once daily. - apixaban (ELIQUIS) 5 mg tab(s) Take 1 tablet by mouth twice daily. - CPAP Initiate Auto PAP @ 5-20 cm of water with humidification. Mask (per patient preference) optional chin strap (if indicated) , filters, tubing, humidifier and lifetime supplies. - acetaminophen (TYLENOL) 500 mg tablet Take 2 tablets by mouth every 8 hours as needed for pain. - aspirin, enteric coated (ECOTRIN LOW STRENGTH) 81 mg EC tablet Take 1 tablet by mouth twice daily. - multivitamin tablet Take 1 tablet by mouth once daily. 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 Neoplasm of uncertain behavior of skin [D48.5] 06/27/2010 01/29/2012 Disturbance of Skin Sensation: tenderness//pain*06/27/2010 01/29/2012 Osteoarthritis [M19.90] 03/31/2011 Essential hypertension, benign [I10] 08/03/2012 Dizziness and giddiness [R42] 09/30/2013 05/26/2016 Morbid obesity due to excess calories (HCC) [E6*06/06/2016 Lung nodule [R91.1] 06/09/2016 CKD (chronic kidney disease) stage 3, GFR 30-59*11/23/2018 Lightheaded [R42] 01/05/2020 12/17/2022 Atrial tachycardia (HCC) [I47.1] 11/05/2020 Ventricular tachycardia, nonsustained (HCC) [I4*11/05/2020 Chronic right-sided low back pain with right-si*11/16/2020 Primary osteoarthritis of right knee [M17.11] 07/10/2021 Former smoker [Z87.891] 07/10/2021 History of total hip arthroplasty, left [Z96.64*07/17/2021 Syncope, cardiogenic [R55] 12/16/2021 Palpitations [R00.2] 12/16/2021 Obesity, Class III, BMI >= 40 [E66.01] 01/27/2022 Atrial fibrillation, persistent (HCC) [I48.19] 01/27/2022 01/27/2022 Dyspnea on exertion [R06.09] 02/14/2022 12/17/2022 Coronary artery disease involving [place]*02/20/2022 Statin intolerance [Z78.9] 06/02/2022 Paroxysmal atrial fibrillation (HCC) [I48.0] 06/02/2022 Hypothyroidism, acquire (more content not included)...[facility] 04-02-2023 NotePatient Outreach ([facility]) DAYANARA GONZALEZ ([id number]) 1940 F FNS Date Time Provider Department 04/02/[address] [facility] [place] your visit today, we recorded the following information about you: Darlene Tate RN 04/02/2023 10:24 AM Signed [facility] Telephonic Outreach Provider Action/FYI #2 attempt to contact patient. Contacted for: Routine Telephonic Outreach Contact made with patient: No, left message. Darlene Tate RN April 02, 2023 10:23 AM Allergies As of Date: 04/02/2023 Noted Allergy Reaction NSAIDS (NON-STEROIDAL ANTI-INFLAM*11/07/2021 14 - Other: See Comments Comments: Pt. states has cautioned her not to use due to kidney disease [id number] REDUCTASE INHIBIT*07/05/2020 17 - Myalgia Date Reviewed: 03/02/2023 Reviewed by: Kapil Yadav MD - Fully Assessed Reason for Visit: CDM [Other] Cmt: Telephonic Outreach Prescriptions as of 04/02/2023 - hydroCHLOROthiazide 25 mg tablet Take 1 tablet by mouth once daily. - levothyroxine (LEVOXYL) 112 mcg tablet Take 1 tablet by mouth once daily. Take on empty stomach. For thyroid. - clotrimazole (LOTRIMIN AF, CLOTRIMAZOLE,) 1 % cream Apply to affected area twice daily. - triamcinolone acetonide (KENALOG) 0.1 % cream Apply 1 application to affected area three times daily. Apply sparingly to area for rash/itching. - famotidine (PEPCID) 20 mg tablet Take 1 tablet by mouth at bedtime as needed. - cetirizine (ZYRTEC) 10 mg tablet Take 1 tablet by mouth once daily. - metoprolol succinate ER (TOPROL XL) 25 mg 24 hr tablet Take 1 tablet by mouth once daily. - ezetimibe (ZETIA) 10 mg tablet Take 1 tablet by mouth once daily. - benzonatate (TESSALON PERLES) 100 mg capsule Take 1 capsule by mouth three times daily as needed for cough. - lisinopril (ZESTRIL, PRINIVIL) 40 mg tablet Take 1 tablet by mouth once daily. - apixaban (ELIQUIS) 5 mg tab(s) Take 1 tablet by mouth twice daily. - CPAP Initiate Auto PAP @ 5-20 cm of water with humidification. Mask (per patient preference) optional chin strap (if indicated) , filters, tubing, humidifier and lifetime supplies. - acetaminophen (TYLENOL) 500 mg tablet Take 2 tablets by mouth every 8 hours as needed for pain. - aspirin, enteric coated (ECOTRIN LOW STRENGTH) 81 mg EC tablet Take 1 tablet by mouth twice daily. - multivitamin tablet Take 1 tablet by mouth once daily. 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 Neoplasm of uncertain behavior of skin [D48.5] 06/27/2010 01/29/2012 Disturbance of Skin Sensation: tenderness//pain*06/27/2010 01/29/2012 Osteoarthritis [M19.90] 03/31/2011 Essential hypertension, benign [I10] 08/03/2012 Dizziness and giddiness [R42] 09/30/2013 05/26/2016 Morbid obesity due to excess calories (HCC) [E6*06/06/2016 Lung nodule [R91.1] 06/09/2016 CKD (chronic kidney disease) stage 3, GFR 30-59*11/23/2018 Lightheaded [R42] 01/05/2020 12/17/2022 Atrial tachycardia (HCC) [I47.1] 11/05/2020 Ventricular tachycardia, nonsustained (HCC) [I4*11/05/2020 Chronic right-sided low back pain with right-si*11/16/2020 Primary osteoarthritis of right knee [M17.11] 07/10/2021 Former smoker [Z87.891] 07/10/2021 History of total hip arthroplasty, left [Z96.64*07/17/2021 Syncope, cardiogenic [R55] 12/16/2021 Palpitations [R00.2] 12/16/2021 Obesity, Class III, BMI >= 40 [E66.01] 01/27/2022 Atrial fibrillation, persistent (HCC) [I48.19] 01/27/2022 01/27/2022 Dyspnea on exertion [R06.09] 02/14/2022 12/17/2022 Coronary artery disease involving [place]*02/20/2022 Statin intolerance [Z78.9] 06/02/2022 Paroxysmal atrial fibrillation (HCC) [I48.0] 06/02/2022 Hypothyroidism, acquired [E03.9] 09/03/2022 Bilateral carotid artery stenosis [I65.23] 02/04/2023 Encounter Status:Closed by DARLENE TATE on 04/02/23[facility]07-27-2023 NoteHNO ID: [id number] Author: Darlene Tate RN Service: ? Author Type: Registered Nurse Type: Progress Notes Filed: 04/02/2023 10:24 AM Note Text: [facility] Telephonic Outreach Provider Action/FYI #2 attempt to contact patient. Contacted for: Routine Telephonic Outreach Contact made with patient: No, left message. Darlene Tate RN April 02, 2023 10:[address] [facility]07-27-2023 History of Present illness Narrative* Darlene Tate RN - 04/02/2023 10:22 AM EDT [facility] Telephonic Outreach Provider Action/FYI #2 attempt to contact patient. Contacted for: Routine Telephonic Outreach Contact made with patient: No, left message. Darlene Tate RN April 02, 2023 10:23 AM [facility] NoteHNO ID: [id number] Author: Darlene Tate RN Service: ? Author Type: Registered Nurse Type: Progress Notes Filed: 04/01/2023 3:10 PM Note Text: [facility] Telephonic Outreach Provider Action/FYI #1 attempt to contact patient. Contacted for: Routine Telephonic Outreach Contact made with patient: No, left message. Darlene Tate RN April 01, 2023 3:10 [facility]07-26-2023 History of Present illness Narrative* Darlene Tate RN - 04/01/2023 2:47 PM EDT [facility] Telephonic Outreach Provider Action/FYI #1 attempt to contact patient. Contacted for: Routine Telephonic Outreach Contact made with patient: No, left message. Darlene Tate RN April 01, 2023 3:10 PM [facility] NotePatient Outreach ([facility]) DAYANARA GONZALEZ ([id number]) 1940 F FNS Date Time Provider Department 04/01/23 DARLENE TATE [facility] During your visit today, we recorded the following information about you: Darlene Tate RN 04/01/2023 3:10 PM Signed [facility] Telephonic Outreach Provider Action/FYI #1 attempt to contact patient. Contacted for: Routine Telephonic Outreach Contact made with patient: No, left message. Darlene Tate RN April 01, 2023 3:10 PM Allergies As of Date: 04/01/2023 Noted Allergy Reaction NSAIDS (NON-STEROIDAL ANTI-INFLAM*11/07/2021 14 - Other: See Comments Comments: Pt. states has cautioned her not to use due to kidney disease [id number] REDUCTASE INHIBIT*07/05/2020 17 - Myalgia Date Reviewed: 03/02/2023 Reviewed by: Kapil Yadav MD - Fully Assessed Reason for Visit: CDM [Other] Cmt: Telephonic Outreach Prescriptions as of 04/01/2023 - hydroCHLOROthiazide 25 mg tablet Take 1 tablet by mouth once daily. - levothyroxine (LEVOXYL) 112 mcg tablet Take 1 tablet by mouth once daily. Take on empty stomach. For thyroid. - clotrimazole (LOTRIMIN AF, CLOTRIMAZOLE,) 1 % cream Apply to affected area twice daily. - triamcinolone acetonide (KENALOG) 0.1 % cream Apply 1 application to affected area three times daily. Apply sparingly to area for rash/itching. - famotidine (PEPCID) 20 mg tablet Take 1 tablet by mouth at bedtime as needed. - cetirizine (ZYRTEC) 10 mg tablet Take 1 tablet by mouth once daily. - metoprolol succinate ER (TOPROL XL) 25 mg 24 hr tablet Take 1 tablet by mouth once daily. - ezetimibe (ZETIA) 10 mg tablet Take 1 tablet by mouth once daily. - benzonatate (TESSALON PERLES) 100 mg capsule Take 1 capsule by mouth three times daily as needed for cough. - lisinopril (ZESTRIL, PRINIVIL) 40 mg tablet Take 1 tablet by mouth once daily. - apixaban (ELIQUIS) 5 mg tab(s) Take 1 tablet by mouth twice daily. - CPAP Initiate Auto PAP @ 5-20 cm of water with humidification. Mask (per patient preference) optional chin strap (if indicated) , filters, tubing, humidifier and lifetime supplies. - acetaminophen (TYLENOL) 500 mg tablet Take 2 tablets by mouth every 8 hours as needed for pain. - aspirin, enteric coated (ECOTRIN LOW STRENGTH) 81 mg EC tablet Take 1 tablet by mouth twice daily. - multivitamin tablet Take 1 tablet by mouth once daily. 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 Neoplasm of uncertain behavior of skin [D48.5] 06/27/2010 01/29/2012 Disturbance of Skin Sensation: tenderness//pain*06/27/2010 01/29/2012 Osteoarthritis [M19.90] 03/31/2011 Essential hypertension, benign [I10] 08/03/2012 Dizziness and giddiness [R42] 09/30/2013 05/26/2016 Morbid obesity due to excess calories (HCC) [E6*06/06/2016 Lung nodule [R91.1] 06/09/2016 CKD (chronic kidney disease) stage 3, GFR 30-59*11/23/2018 Lightheaded [R42] 01/05/2020 12/17/2022 Atrial tachycardia (HCC) [I47.1] 11/05/2020 Ventricular tachycardia, nonsustained (HCC) [I4*11/05/2020 Chronic right-sided low back pain with right-si*11/16/2020 Primary osteoarthritis of right knee [M17.11] 07/10/2021 Former smoker [Z87.891] 07/10/2021 History of total hip arthroplasty, left [Z96.64*07/17/2021 Syncope, cardiogenic [R55] 12/16/2021 Palpitations [R00.2] 12/16/2021 Obesity, Class III, BMI >= 40 [E66.01] 01/27/2022 Atrial fibrillation, persistent (HCC) [I48.19] 01/27/2022 01/27/2022 Dyspnea on exertion [R06.09] 02/14/2022 12/17/2022 Coronary artery disease involving [place]*02/20/2022 Statin intolerance [Z78.9] 06/02/2022 Paroxysmal atrial fibrillation (HCC) [I48.0] 06/02/2022 Hypothyroidism, acquired [E03.9] 09/03/2022 Bilateral carotid artery stenosis [I65.23] 02/04/2023 Encounter Status:Closed by DARLENE TATE on 04/01/23[facility]06-28-2023 Miscellaneous Notes* Telephone Encounter - Nona Webb LPN - 03/04/2023 11:34 AM EDT Patient notified. * Telephone Encounter - Norm Sharif MD - 03/04/2023 10:39 AM EDT Sent. Once stable, we check them once a year. * Telephone Encounter - Maral Carroll RN - 03/04/2023 9:11 AM EDT Patient calls and states that she knows that TSH is in [place] per message from provider. Patient asking if she should remain on synthroid 112 mcg? Patient states that if she is going to continueon this dosage, patient needs prescription sent to [facility]. Patient also asking when should TSH be checked again? Order pended for [facility] pharmacy if patient is to continue 112 mcg. Patient has enough medication for 1 week. Please review and advise, Maral Carroll RN documented in this encounterWay[facility]06-28-2023 Miscellaneous Notes* Telephone Encounter - Alicia Serrano - 03/04/2023 9:05 AM EDT Patient has been identified by name and date of : Yes Last office visit in this department: 12/17/2022 RX INSTRUCTIONS: Patient aware RX will be sent to pharmacy. No need to notify patient. Patient phones requesting refills as follows: Requested Prescriptions Pending Prescriptions Disp Refills hydroCHLOROthiazide 25 mg tablet 90 tablet 1 Sig: Take 1 tablet by mouth once daily. Please review and advise. Alicia Yadav Pss documented in this encounterWay[facility]06-27-2023 NotePatient Outreach ([facility]) DAYANARA GONZALEZ ([id number]) 1940 F FNS Date Time Provider Department 03/03/23 DARLENE TATE [facility] During your visit today, we recorded the following information about you: Darlene Tate RN 03/03/2023 10:08 AM Signed [facility] Telephonic Outreach Provider Action/FYI No new concerns or complaints related to chronic disease management. Contacted for: Routine Telephonic Outreach Contact made with patient: Yes Patient identified by name and date of . Discussed care with patient Are you experiencing any new or worsening symptoms you need to talk about today? No Disease Specific Do you check your blood pressure at home? Yes, Enter readings: Checking BP at home and has no concerns. Do you have new or worsening shortness of breath with activity? No Do you feel like you are dehydrated for any reason, including not being able to eat or drink normally, or having less urine/much darker urine than normal for you? No Do you check your daily weight at home? 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 Routed to: No Action Needed MICHELLE Education Provided this Outreach: No Darlene Tate RN March 03, 2023 10:03 AM Allergies As of Date: 03/03/2023 Noted Allergy Reaction NSAIDS (NON-STEROIDAL ANTI-INFLAM*11/07/2021 14 - Other: See Comments Comments: Pt. states has cautioned her not to use due to kidney disease [id number] REDUCTASE INHIBIT*07/05/2020 17 - Myalgia Date Reviewed: 03/02/2023 Reviewed by: Kapil Yadav MD - Fully Assessed Reason for Visit: CDM [Other] Cmt: Telephonic Outreach Prescriptions as of 03/03/2023 - clotrimazole (LOTRIMIN AF, CLOTRIMAZOLE,) 1 % cream Apply to affected area twice daily. - triamcinolone acetonide (KENALOG) 0.1 % cream Apply 1 application to affected area three times daily. Apply sparingly to area for rash/itching. - famotidine (PEPCID) 20 mg tablet Take 1 tablet by mouth at bedtime as needed. - cetirizine (ZYRTEC) 10 mg tablet Take 1 tablet by mouth once daily. - levothyroxine (LEVOXYL) 112 mcg tablet Take 1 tablet by mouth once daily. Take on empty stomach. For thyroid. - metoprolol succinate ER (TOPROL XL) 25 mg 24 hr tablet Take 1 tablet by mouth once daily. - ezetimibe (ZETIA) 10 mg tablet Take 1 tablet by mouth once daily. - hydroCHLOROthiazide (HYDRODIURIL, ESIDRIX) 25 mg tablet Take 1 tablet by mouth once daily. - benzonatate (TESSALON PERLES) 100 mg capsule Take 1 capsule by mouth three times daily as needed for cough. - lisinopril (ZESTRIL, PRINIVIL) 40 mg tablet Take 1 tablet by mouth once daily. - apixaban (ELIQUIS) 5 mg tab(s) Take 1 tablet by mouth twice daily. - CPAP Initiate Auto PAP @ 5-20 cm of water with humidification. Mask (per patient preference) optional chin strap (if indicated) , filters, tubing, humidifier and lifetime supplies. - acetaminophen (TYLENOL) 500 mg tablet Take 2 tablets by mouth every 8 hours as needed for pain. - aspirin, enteric coated (ECOTRIN LOW STRENGTH) 81 mg EC tablet Take 1 tablet by mouth twice daily. - multivitamin tablet Take 1 tablet by mouth once daily. 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 Neoplasm of uncertain behavior of skin [D48.5] 06/27/2010 01/29/2012 Disturbance of Skin Sensation: tenderness//pain*06/27/2010 01/29/2012 Osteoarthritis [M19.90] 03/31/2011 Essential hypertension, benign [I10] 08/03/2012 Dizziness and giddiness [R42] 09/30/2013 05/26/2016 Morbid obesity due to excess calories (HCC) [E6*06/06/2016 Lung nodule [R91.1] 06/09/2016 CKD (chronic kidney disease) stage 3, GFR 30-59*11/23/2018 Lightheaded [R42] 01/05/2020 12/17/2022 Atrial tachycardia (HCC) [I47.1] 11/05/2020 Ventricular tachycardia, nonsustained (HCC) [I4*11/05/2020 Chronic right-sided low back pain with right-si*11/16/2020 Primary osteoarthritis of right knee [M17.11] 07/10/2021 Former smoker [Z87.891] 07/10/2021 History of total hip arthroplasty, left [Z96.64*07/17/2021 Syncope, cardiogenic [R55] 12/16/2021 Palpitations [R00.2] 12/16/2021 Obesity, Class III, BMI >= 40 [E66.01] 01/27/2022 Atrial fibrillation, persistent (HCC) [I48.19] 01/27/2022 01/27/2022 Dyspnea on exertion [R06.09] 02/14/2022 12/17/2022 Coronary artery disease involving [place]*02/20/2022 Statin intolerance [Z78.9] 06/02/2022 Paroxysmal atrial fibrillation (HCC) [I48.0] 06/02/2022 Hypothyroidism, acquired [E03.9] 09/03/2022 Bilateral caroti (more content not included)...[facility] 03-03-2023 NoteHNO ID: [id number] Author: Darlene Tate RN Service: ? Author Type: Registered Nurse Type: Progress Notes Filed: 03/03/2023 10:08 AM Note Text: [facility] Telephonic Outreach Provider Action/FYI No new concerns or complaints related to chronic disease management. Contacted for: Routine Telephonic Outreach Contact made with patient: Yes Patient identified by name and date of . Discussed care with patient Are you experiencing any new or worsening symptoms you need to talk about today? No Disease Specific Do you check your blood pressure at home? Yes, Enter readings: Checking BP at home and has no concerns. Do you have new or worsening shortness of breath with activity? No Do you feel like you are dehydrated for any reason, including not being able to eat or drink normally, or having less urine/much darker urine than normal for you? No Do you check your daily weight at home? 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 Routed to: No Action Needed MICHELLE Education Provided this Outreach: No Darlene Tate RN March 03, 2023 10:[address] [facility]06-26-2023 NotePatient Outreach ([facility]) DAYANARA GONZALEZ ([id number]) 1940 F FNS Date Time Provider Department 03/02/23 DARLENE TATE [facility] During your visit today, we recorded the following information about you: Darlene Tate RN 03/02/2023 11:10 AM Signed Care Coordination Deferred Outreach Provider Action / FYI: Patient had appointment with Orthopedics today. Deferred outreach to patient at this time due to: Visit with provider today Next Outreach date: 03-03-23 Darlene Tate RN March 02, 2023 11:09 AM Allergies As of Date: 03/02/2023 Noted Allergy Reaction NSAIDS (NON-STEROIDAL ANTI-INFLAM*11/07/2021 14 - Other: See Comments Comments: Pt. states has cautioned her not to use due to kidney disease [id number] REDUCTASE INHIBIT*07/05/2020 17 - Myalgia Date Reviewed: 02/09/2023 Reviewed by: Reji Prakash MD - Fully Assessed Reason for Visit: CDM [Other] Cmt: Telephonic Outreach Prescriptions as of 03/02/2023 - clotrimazole (LOTRIMIN AF, CLOTRIMAZOLE,) 1 % cream Apply to affected area twice daily. - triamcinolone acetonide (KENALOG) 0.1 % cream Apply 1 application to affected area three times daily. Apply sparingly to area for rash/itching. - famotidine (PEPCID) 20 mg tablet Take 1 tablet by mouth at bedtime as needed. - cetirizine (ZYRTEC) 10 mg tablet Take 1 tablet by mouth once daily. - levothyroxine (LEVOXYL) 112 mcg tablet Take 1 tablet by mouth once daily. Take on empty stomach. For thyroid. - metoprolol succinate ER (TOPROL XL) 25 mg 24 hr tablet Take 1 tablet by mouth once daily. - ezetimibe (ZETIA) 10 mg tablet Take 1 tablet by mouth once daily. - hydroCHLOROthiazide (HYDRODIURIL, ESIDRIX) 25 mg tablet Take 1 tablet by mouth once daily. - benzonatate (TESSALON PERLES) 100 mg capsule Take 1 capsule by mouth three times daily as needed for cough. - lisinopril (ZESTRIL, PRINIVIL) 40 mg tablet Take 1 tablet by mouth once daily. - apixaban (ELIQUIS) 5 mg tab(s) Take 1 tablet by mouth twice daily. - CPAP Initiate Auto PAP @ 5-20 cm of water with humidification. Mask (per patient preference) optional chin strap (if indicated) , filters, tubing, humidifier and lifetime supplies. - acetaminophen (TYLENOL) 500 mg tablet Take 2 tablets by mouth every 8 hours as needed for pain. - aspirin, enteric coated (ECOTRIN LOW STRENGTH) 81 mg EC tablet Take 1 tablet by mouth twice daily. - multivitamin tablet Take 1 tablet by mouth once daily. 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 Neoplasm of uncertain behavior of skin [D48.5] 06/27/2010 01/29/2012 Disturbance of Skin Sensation: tenderness//pain*06/27/2010 01/29/2012 Osteoarthritis [M19.90] 03/31/2011 Essential hypertension, benign [I10] 08/03/2012 Dizziness and giddiness [R42] 09/30/2013 05/26/2016 Morbid obesity due to excess calories (HCC) [E6*06/06/2016 Lung nodule [R91.1] 06/09/2016 CKD (chronic kidney disease) stage 3, GFR 30-59*11/23/2018 Lightheaded [R42] 01/05/2020 12/17/2022 Atrial tachycardia (HCC) [I47.1] 11/05/2020 Ventricular tachycardia, nonsustained (HCC) [I4*11/05/2020 Chronic right-sided low back pain with right-si*11/16/2020 Primary osteoarthritis of right knee [M17.11] 07/10/2021 Former smoker [Z87.891] 07/10/2021 History of total hip arthroplasty, left [Z96.64*07/17/2021 Syncope, cardiogenic [R55] 12/16/2021 Palpitations [R00.2] 12/16/2021 Obesity, Class III, BMI >= 40 [E66.01] 01/27/2022 Atrial fibrillation, persistent (HCC) [I48.19] 01/27/2022 01/27/2022 Dyspnea on exertion [R06.09] 02/14/2022 12/17/2022 Coronary artery disease involving [place]ose*02/20/2022 Statin intolerance [Z78.9] 06/02/2022 Paroxysmal atrial fibrillation (HCC) [I48.0] 06/02/2022 Hypothyroidism, acquired [E03.9] 09/03/2022 Bilateral carotid artery stenosis [I65.23] 02/04/2023 Encounter Status:Closed by DARLENE TATE on 03/02/23[facility]06-26-2023 NoteHNO ID: [id number] Author: Kapil Yadav MD Service: ? Author Type: Physician Type: Progress Notes Filed: 03/26/2023 8:00 AM Note Text: Kapil Yadav MD Department of Orthopaedics Orthopaedics [address] [facility] [address] Dept: [phone] Dept March 02, 2023 CHIEF COMPLAINT: Established Patient and Post Op of the Right Knee HPI Pt presents for one year follow up s/p right TKA. Pt states pain is the worst in the morning when waking up, but gets better through the day beginning as a sharp pain on the front of the knee with a more dull pain to the back of the knee. At rest, pain is 3/10. Pt states it also hurts to touch the knee. This has been ongoing for about 6 months. Pt c/o of a snap when doing squats and other exercises. Patient presents with: Right Knee - Established Patient, Post Op AMB ROOMING INTAKE FLOWSHEET DATA Pain Pain Level: 3 Pain Location: Knee-Right Description: Sharp Duration Amount of Time: 6 Duration Units: Months Frequency: Continuous Intervention/Comfort measure: Exercise ASSESSMENT: Z96.651 Status post total knee replacement, right (primary encounter diagnosis) PLAN: Exam and plain films look excellent. I recommended just a bit of strengthening. Otherwise, some normal mechanical symptoms that she is feeling at times. She can follow-up both for the hip and knee 3 to 5-year intervals. OBJECTIVE: Ms. Dayanara Gonzalez is a pleasant 82 year old in no apparent distress. Gen:There were no vitals taken for this visit. nl development, obese, no deformities ENT: Normocephalic, normal hearing, moist mucosa CV: Pulses:DP/PT= 2+ and symmetric, capillary refill < 2 secs, no peripheral edema/varicosities Skin: no rash, bruising or lesions. Good turgor. Psych: cooperative and appropriate, alert and oriented x 3, good mood and affect. Musculoskeletal: Walking without any troubles. Healed incision. No effusion. A few degrees lacking full extension and flexion of 120 Imaging: IMPRESSION: RIGHT TOTAL KNEE REPLACEMENT UNCHANGED COMPARED TO THE PREVIOUS EXAM. Youth Development Professional: PSCB Transcribe Date/Time: Mar 04 2023 6:12P Dictated by : CHARU VALLE MD This examination was interpreted and the report reviewed and electronically signed by: CHARU VALLE MD on Mar 04 2023 6:14PM EST Results-Findings * * *Final Report* * * DATE OF EXAM: Mar 02 2023 11:07AM WRX [id number] - XR KNEE 4V AP/PA BOTH+LAT/ROBERTO RT / PROCEDURE REASON: multiple diagnoses * * * * Physician Interpretation * * * * EXAM: RIGHT KNEE: 4 VIEWS HISTORY: 82-year-old female with right knee replacement TECHNIQUE: AP, lateral , merchant, standing tunnel COMPARISON: 03/07/2022 RESULT: Status post right total knee arthroplasty embedded in methacrylate with patella resurfacing in near anatomic alignment. No evidence of loosening, fracture or dislocation. Small joint effusion. No change compared to the previous exam. Degenerative changes of left knee. Supporting Subjective Information Below: Past Surgical History: PAST SURGICAL HISTORY Procedure Laterality Date COLONOSCOPY 08/26/2005 VJ - scattered tic EGD 08/26/2005 VJ - normal PAST SURGICAL HISTORY OF Right carpal tunnel on the right hand PAST SURGICAL HISTORY OF Right arthoscopy on the right knee PAST SURGICAL HISTORY OF Right 01/2016 ORIF right ankle, 2 small screws remain by Dr. Bedoya PAST SURGICAL HISTORY OF N/A 01/2023 Dental work. Extracted all teeth, dentures now in place. TOTAL HIP REPLACEMENT Left 07/17/2021 Left total hip arthroplasty TOTAL KNEE REPLACEMENT Right 12/25/2021 Right total knee replacement UNSPECIFIED ORAL SURGERY PROCEDURE, BY REPORT wisdom teeth removed. Medications: Current Outpatient Medications Medication Sig levothyroxine (LEVOXYL) 112 mcg tablet Take 1 tablet by mouth once daily. Take on empty stomach. For thyroid. metoprolol succinate ER (TOPROL XL) 25 mg 24 hr tablet Take 1 tablet by mouth once daily. ezetimibe (ZETIA) 10 mg tablet Take 1 tablet by mouth once daily. hydroCHLOROthiazide (HYDRODIURIL, ESIDRIX) 25 mg tablet Take 1 tablet by mouth once daily. lisinopril (ZESTRIL, PRINIVIL) 40 mg tablet Take 1 tablet by mouth once daily. apixaban (ELIQUIS) 5 mg tab(s) Take 1 tablet by mouth twice daily. CPAP Initiate Auto PAP @ 5-20 cm of water with humidification. Mask (per patient preference) optional chin strap (if indicated) , filters, tubing, humidifier and lifetime supplies. acetaminophen (TYLENOL) 500 mg tablet Take 2 tablets by mouth every 8 hours as needed for pain. aspirin, enteric coated (ECOTRIN LOW STRENGTH) 81 mg EC tablet Take 1 tablet by mouth twice daily. (Patient taking differently: Take 81 mg by mouth twice daily. Once daily) clotrimazole (LOTRIMIN AF, CLOTRIMAZOLE,) 1 % cream Apply to affected area twice daily. (Patient not taking: No sig reported) triamcino (more content not included)...[facility]06-26-2023 NoteHNO ID: [id number] Author: Darlene Tate RN Service: ? Author Type: Registered Nurse Type: Progress Notes Filed: 03/02/2023 11:10 AM Note Text: Care Coordination Deferred Outreach Provider Action / FYI: Patient had appointment with Orthopedics today. Deferred outreach to patient at this time due to: Visit with provider today Next Outreach date: 03-03-23 Darlene Tate RN March 02, 2023 11:[address] [facility]06-26-2023 NoteHNO ID: [id number] Author: Dejon Pastor, RT(R) Service: ? Author Type: Technologist Type: Progress Notes Filed: 03/02/2023 11:14 AM Note Text: Radiology Service Progress Note PATIENT NAME: Dayanara Gonzalez DATE OF SERVICE: March 02, 2023 TIME: 11:14 AM PATIENT IDENTITY VERIFICATION COMPLETED USING TWO (2) IDENTIFIERS: Name and Date of confirmed by patient verbally. FALL SCREENING: Has the patient had 2 falls in the last year or 1 fall with injury or currently using an Ambulatory Assistive Device (Walker, Cane, Wheelchair, Crutches, etc.)? No PATIENT GENDER DATA: Female. status: : No status: NO. PATIENT RELEVANT IMPLANT DATA REVIEWED: Not Applicable RADIOLOGY DEPARTMENT: General X-ray: Exam(s) Completed: Lower Extremity X-Ray(s): Knee, AP / Lat / Tunne / Merchant Right and Wt. Bearing PERIPHERAL IV DATA: Not applicable SIGNED BY: RT Noel(R) March 02, 2023 11:[address] [facility]06-26-2023 History of Present illness Narrative* Kapil Yadav MD - 03/02/2023 11:21 AM EDT Kapil Yadav MD Department of Orthopaedics Orthopaedics [address] [facility] [address] Dept: [phone] Dept March 02, 2023 CHIEF COMPLAINT: Established Patient and Post Op of the Right Knee HPI Pt presents for one year follow up s/p right TKA. Pt states pain is the worst in the morning when waking up, but gets better through the day beginning as a sharp pain on the front of the knee with a more dull pain to the back of the knee. At rest, pain is 3/10. Pt states it also hurts to touch the knee. This has been ongoing for about 6 months. Pt c/o of a snap when doing squats and other exercises. Patient presents with: Right Knee - Established Patient, Post Op AMB ROOMING INTAKE FLOWSHEET DATA Pain Pain Level: 3 Pain Location: Knee-Right Description: Sharp Duration Amount of Time: 6 Duration Units: Months Frequency: Continuous Intervention/Comfort measure: Exercise ASSESSMENT: Z96.651 Status post total knee replacement, right (primary encounter diagnosis) PLAN: Exam and plain films look excellent. I recommended just a bit of strengthening. Otherwise, some normal mechanical symptoms that she is feeling at times. She can follow-up both for the hip and knee 3 to 5-year intervals. OBJECTIVE: Ms. Dayanara Gonzalez is a pleasant 82 year old in no apparent distress. Gen:There were no vitals taken for this visit. nl development, obese, no deformities ENT: Normocephalic, normal hearing, moist mucosa CV: Pulses:DP/PT= 2+ and symmetric, capillary refill < 2 secs, no peripheral edema/varicosities Skin: no rash, bruising or lesions. Good turgor. Psych: cooperative and appropriate, alert and oriented x 3, good mood and affect. Musculoskeletal: Walking without any troubles. Healed incision. No effusion. A few degrees lacking full extension and flexion of 120 Imaging: IMPRESSION: RIGHT TOTAL KNEE REPLACEMENT UNCHANGED COMPARED TO THE PREVIOUS EXAM. Youth Development Professional: PSCB Transcribe Date/Time: Mar 04 2023 6:12P Dictated by : CHARU VALLE MD This examination was interpreted and the report reviewed and electronically signed by: CHARU VALLE MD on Mar 04 2023 6:14PM EST Results-Findings * * *Final Report* * * DATE OF EXAM: Mar 02 2023 11:07AM WRX [id number] - XR KNEE 4V AP/PA BOTH+LAT/ROBERTO RT / PROCEDURE REASON: multiple diagnoses * * * * Physician Interpretation * * * * EXAM: RIGHT KNEE: 4 VIEWS HISTORY: 82-year-old female with right knee replacement TECHNIQUE: AP, lateral , merchant, standing tunnel COMPARISON: 03/07/2022 RESULT: Status post right total knee arthroplasty embedded in methacrylate with patella resurfacing in near anatomic alignment. No evidence of loosening, fracture or dislocation. Small joint effusion. No change compared to the previous exam. Degenerative changes of left knee. Supporting Subjective Information Below: Past Surgical History: PAST SURGICAL HISTORY Procedure Laterality Date COLONOSCOPY 08/26/2005 VJ - scattered tic EGD 08/26/2005 VJ - normal PAST SURGICAL HISTORY OF Right carpal tunnel on the right hand PAST SURGICAL HISTORY OF Right arthoscopy on the right knee PAST SURGICAL HISTORY OF Right 01/2016 ORIF right ankle, 2 small screws remain by Dr. Bedoya PAST SURGICAL HISTORY OF N/A 01/2023 Dental work. Extracted all teeth, dentures now in place. TOTAL HIP REPLACEMENT Left 07/17/2021 Left total hip arthroplasty TOTAL KNEE REPLACEMENT Right 12/25/2021 Right total knee replacement UNSPECIFIED ORAL SURGERY PROCEDURE, BY REPORT wisdom teeth removed. Medications: Current Outpatient Medications Medication Sig levothyroxine (LEVOXYL) 112 mcg tablet Take 1 tablet by mouth once daily. Take on empty stomach. For thyroid. metoprolol succinate ER (TOPROL XL) 25 mg 24 hr tablet Take 1 tablet by mouth once daily. ezetimibe (ZETIA) 10 mg tablet Take 1 tablet by mouth once daily. hydroCHLOROthiazide (HYDRODIURIL, ESIDRIX) 25 mg tablet Take 1 tablet by mouth once daily. lisinopril (ZESTRIL, PRINIVIL) 40 mg tablet Take 1 tablet by mouth once daily. apixaban (ELIQUIS) 5 mg tab(s) Take 1 tablet by mouth twice daily. CPAP Initiate Auto PAP @ 5-20 cm of water with humidification. Mask (per patient preference) optional chin strap (if indicated) , filters, tubing, humidifier and lifetime supplies. acetaminophen (TYLENOL) 500 mg tablet Take 2 tablets by mouth every 8 hours as needed for pain. aspirin, enteric coated (ECOTRIN LOW STRENGTH) 81 mg EC tablet Take 1 tablet by mouth twice daily. (Patient taking differently: Take 81 mg by mouth twice daily. Once daily) clotrimazole (LOTRIMIN AF, CLOTRIMAZOLE,) 1 % cream Apply to affected area twice daily. (Patient not taking: No sig reported) triamcinolone acetonide (KENALOG) 0.1 % cream Apply 1 application to affected area three times daily. Apply sparingly to area for rash/itching. (Patient not taking: No sig reported) famotidine (PEPCID) 20 mg tablet Take 1 tablet by mouth at bedtime as needed. (Patient not taking: No sig reported) cetirizine (ZYRTEC) 10 mg tablet Take 1 tablet by mouth once daily. (Patient not taking: No sig reported) benzonatate (TESSALON PERLES) 100 mg capsule Take 1 capsule by mouth three times daily as needed for cough. (Patient not taking: No sig reported) multivitamin tablet Take 1 tablet by mouth once daily. (Patient not taking: No sig reported) Current Facility-Administered Medications Medication Dose Route Frequency perflutren lipid microspheres 1.3 mL in NaCl (PF) 0.9% 10 mL injection (DEFINITY) INTRAVENOUS DIRECTED PRN sodium chloride 0.9 % (flush) 10 mL (BD POSIFLUSH) 10 mL INTRAVENOUS DIRECTED PRN Allergies: Nsaids (Non-Steroidal Anti-Inflammatory Drug) and Qmfylve-Jtt-Udt Reductase Inhibitors ROS: General (negative for fatigue, malaise, weight loss/gain) HEENT (negative for headache, earache, recent vision changes, sinus pain, sore throat) Respiratory (no recent shortness of breath, hemoptysis) CV (negative for chest tightness, palpitations) Musculoskeletal (see HPI) Psych (no depression, anxiety) Kapil Yadav MD [facility] of Present illness Narrative* Dalrene Tate RN - 03/02/2023 11:09 AM EDT Care Coordination Deferred Outreach Provider Action / FYI: Patient had appointment with Orthopedics today. Deferred outreach to patient at this time due to: Visit with provider today Next Outreach date: 03-03-23 Darlene Tate RN March 02, 2023 11:09 AM documented in [facility] encounterWay[facility] History of Present illness Narrative* Dejon Pastor RT(R) - 03/02/2023 10:50 AM EDT Radiology Service Progress Note PATIENT NAME: Dayanara Gonzalez DATE OF SERVICE: March 02, 2023 TIME: 11:14 AM PATIENT IDENTITY VERIFICATION COMPLETED USING TWO (2) IDENTIFIERS: Name and Date of confirmedby patient verbally. FALL SCREENING: Has the patient had 2 falls in the last year or 1 fall with injury or currently using an Ambulatory Assistive Device (Walker, Cane, Wheelchair, Crutches, etc.)? No PATIENT GENDER DATA: Female. status: : No status: NO. PATIENT RELEVANT IMPLANT DATA REVIEWED: Not Applicable RADIOLOGY DEPARTMENT: General X-ray: Exam(s) Completed: Lower Extremity X- Ray(s): Knee, AP / Lat / Tunne / Merchant Right and Wt. Bearing PERIPHERAL IV DATA: Not applicable SIGNED BY: RT Noel(R) March 02, 2023 11:14 AM documented in this encounterWay[facility]-2023 NotePatient Outreach ([facility]) DAYANARA GONZALEZ ([id number]) 1940 F FNS Date Time Provider Department 02/10/23 DARLENE TATE During your visit today, we recorded the following information about you: Darlene Tate RN 02/19/2023 9:05 AM Addendum Care Coordination Deferred Outreach Provider Action / FYI: Patient had office visit with Dr. Prakash Cardiology yesterday 02-09-23. Deferred outreach to patient at this time due to: Visit with provider yesterday. Next Outreach date: 02-24-23 Darlene Tate RN February 10, 2023 10:20 AM Allergies As of Date: 02/10/2023 Noted Allergy Reaction NSAIDS (NON-STEROIDAL ANTI-INFLAM*11/07/2021 14 - Other: See Comments Comments: Pt. states has cautioned her not to use due to kidney disease [id number] REDUCTASE INHIBIT*07/05/2020 17 - Myalgia Date Reviewed: 02/09/2023 Reviewed by: Reji Prakash MD - Fully Assessed Reason for Visit: CDM [Other] Cmt: Telephonic Outreach Prescriptions as of 02/19/2023 - clotrimazole (LOTRIMIN AF, CLOTRIMAZOLE,) 1 % cream Apply to affected area twice daily. - triamcinolone acetonide (KENALOG) 0.1 % cream Apply 1 application to affected area three times daily. Apply sparingly to area for rash/itching. - famotidine (PEPCID) 20 mg tablet Take 1 tablet by mouth at bedtime as needed. - cetirizine (ZYRTEC) 10 mg tablet Take 1 tablet by mouth once daily. - levothyroxine (LEVOXYL) 112 mcg tablet Take 1 tablet by mouth once daily. Take on empty stomach. For thyroid. - metoprolol succinate ER (TOPROL XL) 25 mg 24 hr tablet Take 1 tablet by mouth once daily. - ezetimibe (ZETIA) 10 mg tablet Take 1 tablet by mouth once daily. - hydroCHLOROthiazide (HYDRODIURIL, ESIDRIX) 25 mg tablet Take 1 tablet by mouth once daily. - benzonatate (TESSALON PERLES) 100 mg capsule Take 1 capsule by mouth three times daily as needed for cough. - lisinopril (ZESTRIL, PRINIVIL) 40 mg tablet Take 1 tablet by mouth once daily. - apixaban (ELIQUIS) 5 mg tab(s) Take 1 tablet by mouth twice daily. - CPAP Initiate Auto PAP @ 5-20 cm of water with humidification. Mask (per patient preference) optional chin strap (if indicated) , filters, tubing, humidifier and lifetime supplies. - acetaminophen (TYLENOL) 500 mg tablet Take 2 tablets by mouth every 8 hours as needed for pain. - aspirin, enteric coated (ECOTRIN LOW STRENGTH) 81 mg EC tablet Take 1 tablet by mouth twice daily. - multivitamin tablet Take 1 tablet by mouth once daily. 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 Neoplasm of uncertain behavior of skin [D48.5] 06/27/2010 01/29/2012 Disturbance of Skin Sensation: tenderness//pain*06/27/2010 01/29/2012 Osteoarthritis [M19.90] 03/31/2011 Essential hypertension, benign [I10] 08/03/2012 Dizziness and giddiness [R42] 09/30/2013 05/26/2016 Morbid obesity due to excess calories (HCC) [E6*06/06/2016 Lung nodule [R91.1] 06/09/2016 CKD (chronic kidney disease) stage 3, GFR 30-59*11/23/2018 Lightheaded [R42] 01/05/2020 12/17/2022 Atrial tachycardia (HCC) [I47.1] 11/05/2020 Ventricular tachycardia, nonsustained (HCC) [I4*11/05/2020 Chronic right-sided low back pain with right-si*11/16/2020 Primary osteoarthritis of right knee [M17.11] 07/10/2021 Former smoker [Z87.891] 07/10/2021 History of total hip arthroplasty, left [Z96.64*07/17/2021 Syncope, cardiogenic [R55] 12/16/2021 Palpitations [R00.2] 12/16/2021 Obesity, Class III, BMI >= 40 [E66.01] 01/27/2022 Atrial fibrillation, persistent (HCC) [I48.19] 01/27/2022 01/27/2022 Dyspnea on exertion [R06.09] 02/14/2022 12/17/2022 Coronary artery disease involving [place]ose*02/20/2022 Statin intolerance [Z78.9] 06/02/2022 Paroxysmal atrial fibrillation (HCC) [I48.0] 06/02/2022 Hypothyroidism, acquired [E03.9] 09/03/2022 Bilateral carotid artery stenosis [I65.23] 02/04/2023 Encounter Status:Closed by DARLENE TATE on 02/10/23[facility] 02-10-2023 NoteHNO ID: [id number] Author: Darlene Tate RN Service: ? Author Type: Registered Nurse Type: Progress Notes Filed: 02/19/2023 9:05 AM Note Text: Care Coordination Deferred Outreach Provider Action / FYI: Patient had office visit with Dr. Prakash Cardiology yesterday 02-09-23. Deferred outreach to patient at this time due to: Visit with provider yesterday. Next Outreach date: 02-24-23 Darlene Tate RN February 10, 2023 10:[address] [facility]06-06-2023 History of Present illness Narrative* Darlene Tate RN - 02/10/2023 10:20 AM EDT Care Coordination Deferred Outreach Provider Action / FYI: Patient had office visit with Dr. Prakash Cardiology yesterday 02-09-23. Deferred outreach to patient at this time due to: Visit with provider yesterday. Next Outreach date: 02-16-23 Darlene Tate RN February 10, 2023 10:20 AM documented in this encounterWay[facility]06[facility]23 NoteHNO ID: [id number] Author: Reji Prakash MD Service: ? Author Type: Physician Type: Progress Notes Filed: 02/09/2023 10:00 AM Note Text: [facility] Cardiology ([address]) [address] [place] [facility] [id number] OUTPATIENT VISIT DATE 02/09/2023 PRIMARY CARE PHYSICIAN: Norm Sharif [address] [place] [address] HISTORY OF PRESENT ILLNESS: Ms. Gonzalez is a 82 year old woman who underwent catheterization in February 2022 after she was found to have ventricular tachycardia on outpatient monitoring. She had mild coronary artery disease. She had new onset atrial fibrillation in April 2022. She is also treated for hypertension and dyslipidemia. She presents the office for routine follow-up. She has been feeling a little bit better as her thyroid is becoming less of an issue. She has been placed on Synthroid with marked improvement. She was taken off amiodarone due to thyroid dysfunction. She has occasional episodes of palpitations but they are very rare. She usually develops a funny feeling in her chest associated with lightheadedness. Her symptoms are occurring less than once per month and are usually not sustained. She has not had symptoms concerning for CHF including PND, orthopnea, or lower extremity edema. PAST MEDICAL HISTORY Diagnosis Date Diarrhea Generalized osteoarthrosis, unspecified site HTN (hypertension) Lung nodule repeat ct in spring, benign Other and unspecified hyperlipidemia Rectal bleeding PAST SURGICAL HISTORY Procedure Laterality Date COLONOSCOPY 08/26/2005 VJ - scattered tic EGD 08/26/2005 VJ - normal PAST SURGICAL HISTORY OF Right carpal tunnel on the right hand PAST SURGICAL HISTORY OF Right arthoscopy on the right knee PAST SURGICAL HISTORY OF Right 01/2016 ORIF right ankle, 2 small screws remain by Dr. Bedoya TOTAL HIP REPLACEMENT Left 07/17/2021 Left total hip arthroplasty TOTAL KNEE REPLACEMENT Right 12/25/2021 Right total knee replacement UNSPECIFIED ORAL SURGERY PROCEDURE, BY REPORT wisdom teeth removed. SOCIAL HISTORY Social History Tobacco Use Smoking status: Former Packs/day: 0.50 Years: 20.00 Pack years: 10.00 Types: Cigarettes Quit date: 11/08/2000 Years since quittin.2 Smokeless tobacco: Never Tobacco comments: 2003 quit Vaping Use Vaping Use: Never used Substance Use Topics Alcohol use: No Drug use: No FAMILY HISTORY Problem Relation Age of Onset Heart Mother Hypertension Mother Hypertension Father Renal Disease Father Asthma No Family History COPD No Family History ALLERGIES: ALLERGIES Allergen Reactions Nsaids (Non-Steroid* Other: See Comments Pt. states has cautioned her not to use due to kidney disease Zgdejgl-Bta-Yjg Red* Myalgia MEDICATIONS: levothyroxine (LEVOXYL) 112 mcg tabletTake 1 tablet by mouth once daily. Take on empty stomach. For thyroid.Disp: 30 tabletRfl: 2 metoprolol succinate ER (TOPROL XL) 25 mg 24 hr tabletTake 1 tablet by mouth once daily.Disp: 90 tabletRfl: 3 ezetimibe (ZETIA) 10 mg tabletTake 1 tablet by mouth once daily.Disp: 90 tabletRfl: 3 hydroCHLOROthiazide (HYDRODIURIL, ESIDRIX) 25 mg tabletTake 1 tablet by mouth once daily.Disp: 90 tabletRfl: 1 lisinopril (ZESTRIL, PRINIVIL) 40 mg tabletTake 1 tablet by mouth once daily.Disp: 90 tabletRfl: 3 apixaban (ELIQUIS) 5 mg tab(s)Take 1 tablet by mouth twice daily.Disp: 180 tabletRfl: 3 CPAPInitiate Auto PAP @ 5-20 cm of water with humidification. Mask (per patient preference) optional chin strap (if indicated) , filters, tubing, humidifier and lifetime supplies.Disp: 1 EachRfl: 0 acetaminophen (TYLENOL) 500 mg tabletTake 2 tablets by mouth every 8 hours as needed for pain.Disp: 90 tabletRfl: 0 aspirin, enteric coated (ECOTRIN LOW STRENGTH) 81 mg EC tabletTake 1 tablet by mouth twice daily.Disp: 60 tabletRfl: 0 (Patient taking differently: Take 81 mg by mouth twice daily. Once daily) clotrimazole (LOTRIMIN AF, CLOTRIMAZOLE,) 1 % creamApply to affected area twice daily.Disp: 45 gRfl: 0 (Patient not taking: Reported on 02/09/2023) triamcinolone acetonide (KENALOG) 0.1 % creamApply 1 application to affected area three times daily. Apply sparingly to area for rash/itching.Disp: 80 gRfl: 0 (Patient not taking: Reported on 02/09/2023) famotidine (PEPCID) 20 mg tabletTake 1 tablet by mouth at bedtime as needed.Disp: 28 tabletRfl: 0 (Patient not taking: Reported on 02/09/2023) cetirizine (ZYRTEC) 10 mg tabletTake 1 tablet by mouth once daily.Disp: 30 tabletRfl: 0 (Patient not taking: Reported on 02/09/2023) benzonatate (TESSALON PERLES) 100 mg capsuleTake 1 capsule by mouth three times daily as needed for cough.Disp: 30 capsuleRfl: 0 (Patient not taking: No sig reported) multivitamin tabletTake 1 tablet by mouth once daily.Disp: Rfl: (Patie (more content not included)...[facility]06-05-2023 History of Present illness Narrative* Reji Prakash MD - 02/09/2023 9:00 AM EDT Images from the original note were not included. [facility] SE[facility]ARDIOLOGY [facility] [address] [facility] [id number] OUTPATIENT VISIT DATE 02/09/2023 PRIMARY CARE PHYSICIAN: Norm Sharif [address] [place] [address] HISTORY OF PRESENT ILLNESS: Ms. Gonzalez is a 82 year old woman who underwent catheterization in February 2022 after she was found tohave ventricular tachycardia on outpatient monitoring. She had mild coronary artery disease. She had new onset atrial fibrillation in April 2022. She is also treated for hypertension and dyslipidemia. She presents the office for routine follow-up. She has been feeling a little bit better as her thyroid is becoming less of an issue. She has been placed on Synthroid with marked improvement. She was taken off amiodarone due to thyroid dysfunction. She has occasional episodes of palpitations but they are very rare. She usually develops a funny feeling in her chest associated with lightheadedness. Her symptoms are occurring less than once per month and are usually not sustained. She has not hadsymptoms concerning for CHF including PND, orthopnea, or lower extremity edema. PAST MEDICAL HISTORY Diagnosis Date Diarrhea Generalized osteoarthrosis, unspecified site HTN (hypertension) Lung nodule repeat ct in spring, benign Other and unspecified hyperlipidemia Rectal bleeding PAST SURGICAL HISTORY Procedure Laterality Date COLONOSCOPY 08/26/2005 VJ - scattered tic EGD 08/26/2005 VJ - normal PAST SURGICAL HISTORY OF Right carpal tunnel on the right hand PAST SURGICAL HISTORY OF Right arthoscopy on the right knee PAST SURGICAL HISTORY OF Right 01/2016 ORIF right ankle, 2 small screws remain by Dr. Bedoya TOTAL HIP REPLACEMENT Left 07/17/2021 Left total hip arthroplasty TOTAL KNEE REPLACEMENT Right 12/25/2021 Right total knee replacement UNSPECIFIED ORAL SURGERY PROCEDURE, BY REPORT wisdom teeth removed. SOCIAL HISTORY Social History Tobacco Use Smoking status: Former Packs/day: 0.50 Years: 20.00 Pack years: 10.00 Types: Cigarettes Quit date: 11/08/2000 Years since quittin.2 Smokeless tobacco: Never Tobacco comments: 2003 quit Vaping Use Vaping Use: Never used Substance Use Topics Alcohol use: No Drug use: No FAMILY HISTORY Problem Relation Age of Onset Heart Mother Hypertension Mother Hypertension Father Renal Disease Father Asthma No Family History COPD No Family History ALLERGIES: ALLERGIES Allergen Reactions Nsaids (Non-Steroid* Other: See Comments Pt. states has cautioned her not to use due to kidney disease Qdomfxc-Lwk-Bkm Red* Myalgia MEDICATIONS: levothyroxine (LEVOXYL) 112 mcg tablet^Take 1 tablet by mouth once daily. Take on empty stomach. For thyroid.^Disp: 30 tablet^Rfl: 2 metoprolol succinate ER (TOPROL XL) 25 mg 24 hr tablet^Take 1 tablet by mouth once daily.^Disp: 90 tablet^Rfl: 3 ezetimibe (ZETIA) 10 mg tablet^Take 1 tablet by mouth once daily.^Disp: 90 tablet^Rfl: 3 hydroCHLOROthiazide (HYDRODIURIL, ESIDRIX) 25 mg tablet^Take 1 tablet by mouth once daily.^Disp: 90tablet^Rfl: 1 lisinopril (ZESTRIL, PRINIVIL) 40 mg tablet^Take 1 tablet by mouth once daily.^Disp: 90 tablet^Rfl:3 apixaban (ELIQUIS) 5 mg tab(s)^Take 1 tablet by mouth twice daily.^Disp: 180 tablet^Rfl: 3 CPAP^Initiate Auto PAP @ 5-20 cm of water with humidification. Mask (per patient preference) optional chin strap (if indicated) , filters, tubing, humidifier and lifetime supplies.^Disp: 1 Each^Rfl: 0 acetaminophen (TYLENOL) 500 mg tablet^Take 2 tablets by mouth every 8 hours as needed for pain.^Disp: 90 tablet^Rfl: 0 aspirin, enteric coated (ECOTRIN LOW STRENGTH) 81 mg EC tablet^Take 1 tablet by mouth twice daily.^Disp: 60 tablet^Rfl: 0 (Patient taking differently: Take 81 mg by mouth twice daily. Once daily) clotrimazole (LOTRIMIN AF, CLOTRIMAZOLE,) 1 % cream^Apply to affected area twice daily.^Disp: 45 g^Rfl: 0 (Patient not taking: Reported on 02/09/2023) triamcinolone acetonide (KENALOG) 0.1 % cream^Apply 1 application to affected area three times daily. Apply sparingly to area for rash/itching.^Disp: 80 g^Rfl: 0 (Patient not taking: Reported on 02/09/2023) famotidine (PEPCID) 20 mg tablet^Take 1 tablet by mouth at bedtime as needed.^Disp: 28 tablet^Rfl: 0 (Patient not taking: Reported on 02/09/2023) cetirizine (ZYRTEC) 10 mg tablet^Take 1 tablet by mouth once daily.^Disp: 30 tablet^Rfl: 0 (Patientnot taking: Reported on 02/09/2023) benzonatate (TESSALON PERLES) 100 mg capsule^Take 1 capsule by mouth three times daily as needed for cough.^Disp: 30 capsule^Rfl: 0 (Patient not taking: No sig reported) multivitamin tablet^Take 1 tablet by mouth once daily.^Disp: ^Rfl: (Patient not taking: Reported on02/09/2023) REVIEW OF SYSTEMS: Review of Systems Constitutional: Negative for chills, fever, malaise/fatigue and weight loss. HENT: Negative for hearing loss and sore throat. Eyes: Negative for blurred vision and double vision. Respiratory: Positive for shortness of breath. Cardiovascular: Positive for palpitations. Gastrointestinal: Negative. Genitourinary: Negative for dysuria, frequency, hematuria and urgency. Musculoskeletal: Negative. Skin: Negative. Neurological: Negative for dizziness, seizures, loss of consciousness, weakness and headaches. Endo/Heme/Allergies: Negative for environmental allergies. Does not bruise/bleed easily. Psychiatric/Behavioral: Negative for depression. PHYSICAL EXAMINATION: BP 132/84 Pulse 58 Wt 236 lb (107.0kg) SpO2 98% Repeat blood pressure right arm: 132/82 mmHg General: Pleasant woman sitting appears comfortable no apparent distress. She is alert and orientedx3 HEENT: Carotid upstrokes are brisk without bruits no JVD appreciated. Pulmonary: Lungs are clear no rales, wheezes, rhonchi Cardiovascular: Normal S1, S2 with regular rate and rhythm. No murmurs, rubs, or gallops Extremities: Warm, well-perfused, no lower extremity edema. Distal pulses are 2- 3+ and symmetric. CARDIOVASCULAR MEDICINE TESTING: ECG in the office 02/09/2023: Sinus bradycardia with normal axis and intervals. No significant ST or wave changes Cardiac Catheterization 02/14/2022: Hemodynamics: LVEDP: 13 mmHg LV - AORTA: No gradient. Coronary Angiography: Left Main: Normal Left Anterior Descending: Large caliber vessel. The proximal vessel has mild diffuse <30% luminal narrowing. Circumflex: Large-caliber nondominant vessel with a large obtuse marginal branch which extends to the apical lateral wall. There is mild diffuse disease Right Coronary Artery: Large-caliber dominant vessel with mild diffuse disease Echocardiogram 04/18/2022 Left Ventricle Normal LV size. Apical false tendon noted. Left ventricular systolic function is normal. The estimated ejection fraction is 65 %. Stage 2 diastolic dysfunction. No regional wallmotion abnormalities noted. Right Ventricle Normal RV size. Normal systolic function. Atria The left atrium is mildly enlarged. The right atrium is mildly enlarged. No doppler evidence forASD. Mitral Valve There is mild mitral annular calcification. Normal mitral valve. Mild-Moderate (1-2+) mitral valveinsufficiency. Tricuspid Valve Normal tricuspid valve. Mild to moderate (1-2+) tricuspid valve insufficiency. Right ventricularsystolic pressure estimated to be 37 mmHg. Aortic Valve Trisinus/trileaflet aortic valve. Mild diffuse aortic valve thickening. Mild focal aortic valve calcification. Aortic valve sclerosis/mild aortic valve stenosis. Pulmonic Valve The pulmonic valve is not well visualized. Mild (1+) pulmonic valve insufficiency. Great Vessels Normal sized aortic root. Pericardium/Pleural No pericardial effusion. Echocardiogram 01/23/2022: - Technically difficult exam due to body habitus. - Exam indication: Palpitations - The left ventricle is normal in size. There is mild concentric left ventricular hypertrophy. Left ventricular systolic function is normal. EF = 65 5% (2D biplane) Indeterminate left ventricular diastolic dysfunction due to inconsistent or technically suboptimal data. - The right ventricle is normal in size. Right ventricular systolic function is normal. - The visualized aorta is borderline dilated with a maximal dimension of 3.8 cm. - Exam was compared with the prior CC echocardiographic exam performed on 04/16/2018, no significant change. Echocardiogram 04/16/2018 CONCLUSIONS: - Technically difficult exam due to body habitus. - Exam indication: Tachycardia - The left ventricle is normal in size. There is mild concentric left ventricular hypertrophy. Leftventricular systolic function is normal. EF = 62 5% (2D 4-ch.) Definity contrast used for endocardial border detection. Normal left ventricular diastolic function. - The right ventricle is normal in size. Right ventricular systolic function is normal. - There are no significant valvular abnormalities. - The patient has not had a prior CC echocardiographic exam for comparison. Carotid Ultrasound 04/16/2022: IMPRESSION RIGHT SIDE Internal carotid artery: 20-39% stenosis. Vertebral artery: Patent and antegrade flow noted. Innominate artery: Unable to visualize. LEFT SIDE Internal carotid artery: 20-39% stenosis. Vertebral artery: Patent and antegrade flow noted. Subclavian artery: Plaque visualized without evidence of hemodynamically significant stenosis. Zio Monitor 01/06-01/20/22: Patient had a min HR of 52 bpm, max HR of 218 bpm, and avg HR of 70 bpm. Predominant underlying rhythm was Sinus Rhythm. 2 Ventricular Tachycardia runs occurred, the run with the fastest interval lasting 9 beats with a max rate of 218 bpm, the longest lasting 10 beats with an avg rate of 184 bpm. 88 Supraventricular Tachycardia runsoccurred, the run with the fastest interval lasting 9 beats with a max rate of 200 bpm, the longestlasting 15.8 secs with an avg rate of 115 bpm. Isolated SVEs were rare (<1.0%), SVE Couplets were rare (<1.0%), and SVE Triplets were rare (<1.0%). Isolated VEs were rare (<1.0%), VE Couplets were rare (<1.0%), and no VE Triplets were present. IMPRESSION: Ms. Gonzalez is a 82 year old woman with mild coronary artery disease on catheterization February 2022, paroxysmal atrial fibrillation, hypertension, and dyslipidemia with severe statin intolerance who presents the office for follow-up. PLAN AND RECOMMENDATIONS: 1. Coronary artery disease involving [place] coronary artery of [place] heart without angina pectoris- ICD9: 414.01, ICD10: I25.10 (primary diagnosis) She is doing well without symptoms concerning for angina. Continue current medical therapy and riskfactor modification - ECG COMPLETE 2. 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 She is now 6 months since her last doseof amnio. She has persistent atrial fibrillation symptoms may need to consider addition of flecainide. At present she is doing well on Toprol. Continue Eliquis for stroke risk reduction 3. Palpitations - ICD9: 785.1, ICD10: R00.2 4. Ventricular tachycardia, nonsustained (HCC) - ICD9: 427.1, ICD10: I47.29 5. Essential hypertension, benign - ICD9: 401.1, ICD10: I10 Well-controlled on current regimen. 6. Mixed hyperlipidemia - ICD9: 272.2, ICD10: E78.2 Difficult to control due to statin intolerance. 7. Statin intolerance - ICD9: 995.27, ICD10: Z78.9 8. Bilateral carotid artery stenosis - ICD9: 433.10, 433.30, ICD10: I65.23 Mild bilateral disease on most recent carotid ultrasound April 2022. No symptoms concerning for TIA or CVA. Reji Prakash MD documented in [facility] encounter[facility] Miscellaneous Notes* Telephone Encounter - Bradley Loo LPN - 01/27/2023 10:28 AM EDT Pt read result note through . Bradley Loo LPN * Telephone Encounter - Julio Kerns PA-C - 01/26/2023 8:38 PM EDT Recheck TSH in 4 weeks- too soon for thyroid to be stabilized. Telephone on 01/26/23 TSH BLD Thanks, Martir Kerns PA-C documented in this encounterWayne [facility]05-08-2023 NoteHNO ID: [id number] Author: Radha Martines RN Service: ? Author Type: Registered Nurse Type: Progress Notes Filed: 01/12/2023 1:24 PM Note Text: [facility] Telephonic Outreach Provider Action/FYI Contacted for: Routine Telephonic Outreach Contact made with patient: Yes Patient identified by name and date of . Discussed care with patient Are you experiencing any new or worsening symptoms you need to talk about today? No Disease Specific Do you check your blood pressure at home? Yes, Enter readings: good normal range Do you have new or worsening shortness of breath with activity? Yes Has had more SOB but is outside more and trying to do things. Has OV with [facility] on 02-09-23 and will discuss it with him Do you feel like you are dehydrated for any reason, including not being able to eat or drink normally, or having less urine/much darker urine than normal for you? No Do you check your daily weight at home? 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 Routed to: No Action Needed MICHELLE Education Provided this Outreach: No Radha Martines RN January 12, 2023 1:04 [facility]05-08-2023 NotePatient Outreach ([facility]) DAYANARA GONZALEZ ([id number]) 1940 F FNS Date Time Provider Department 01/12/23 RADHA MARTINES During your visit today, we recorded the following information about you: Radha Martines RN 01/12/2023 1:24 PM Signed [facility] Telephonic Outreach Provider Action/FYI Contacted for: Routine Telephonic Outreach Contact made with patient: Yes Patient identified by name and date of . Discussed care with patient Are you experiencing any new or worsening symptoms you need to talk about today? No Disease Specific Do you check your blood pressure at home? Yes, Enter readings: good normal range Do you have new or worsening shortness of breath with activity? Yes Has had more SOB but is outside more and trying to do things. Has OV with [facility] on 02-09-23 and will discuss it with him Do you feel like you are dehydrated for any reason, including not being able to eat or drink normally, or having less urine/much darker urine than normal for you? No Do you check your daily weight at home? 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 Routed to: No Action Needed MICHELLE Education Provided this Outreach: No Radha Martines, KYLEE January 12, 2023 1:04 PM Allergies As of Date: 01/12/2023 Noted Allergy Reaction NSAIDS (NON-STEROIDAL ANTI-INFLAM*11/07/2021 14 - Other: See Comments Comments: Pt. states has cautioned her not to use due to kidney disease CLDNEFE-FSQ-MBS REDUCTASE INHIBIT*07/05/2020 17 - Myalgia Date Reviewed: 12/31/2022 Reviewed by: Roma Gutierrez - Fully Assessed Reason for Visit: Community Monitoring Outreach [Other] Cmt: [facility] Telephonic Outreach - Routine Prescriptions as of 01/12/2023 - clotrimazole (LOTRIMIN AF, CLOTRIMAZOLE,) 1 % cream Apply to affected area twice daily. - triamcinolone acetonide (KENALOG) 0.1 % cream Apply 1 application to affected area three times daily. Apply sparingly to area for rash/itching. - famotidine (PEPCID) 20 mg tablet Take 1 tablet by mouth at bedtime as needed. - cetirizine (ZYRTEC) 10 mg tablet Take 1 tablet by mouth once daily. - levothyroxine (LEVOXYL) 112 mcg tablet Take 1 tablet by mouth once daily. Take on empty stomach. For thyroid. - metoprolol succinate ER (TOPROL XL) 25 mg 24 hr tablet Take 1 tablet by mouth once daily. - ezetimibe (ZETIA) 10 mg tablet Take 1 tablet by mouth once daily. - hydroCHLOROthiazide (HYDRODIURIL, ESIDRIX) 25 mg tablet Take 1 tablet by mouth once daily. - benzonatate (TESSALON PERLES) 100 mg capsule Take 1 capsule by mouth three times daily as needed for cough. - lisinopril (ZESTRIL, PRINIVIL) 40 mg tablet Take 1 tablet by mouth once daily. - apixaban (ELIQUIS) 5 mg tab(s) Take 1 tablet by mouth twice daily. - CPAP Initiate Auto PAP @ 5-20 cm of water with humidification. Mask (per patient preference) optional chin strap (if indicated) , filters, tubing, humidifier and lifetime supplies. - acetaminophen (TYLENOL) 500 mg tablet Take 2 tablets by mouth every 8 hours as needed for pain. - aspirin, enteric coated (ECOTRIN LOW STRENGTH) 81 mg EC tablet Take 1 tablet by mouth twice daily. - multivitamin tablet Take 1 tablet by mouth once daily. 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 Neoplasm of uncertain behavior of skin [D48.5] 06/27/2010 01/29/2012 Disturbance of Skin Sensation: tenderness//pain*06/27/2010 01/29/2012 Osteoarthritis [M19.90] 03/31/2011 Essential hypertension, benign [I10] 08/03/2012 Dizziness and giddiness [R42] 09/30/2013 05/26/2016 Morbid obesity due to excess calories (HCC) [E6*06/06/2016 Lung nodule [R91.1] 06/09/2016 CKD (chronic kidney disease) stage 3, GFR 30-59*11/23/2018 Lightheaded [R42] 01/05/2020 12/17/2022 Atrial tachycardia (HCC) [I47.1] 11/05/2020 Ventricular tachycardia, nonsustained (HCC) [I4*11/05/2020 Chronic right-sided low back pain with right-si*11/16/2020 Primary osteoarthritis of right knee [M17.11] 07/10/2021 Former smoker [Z87.891] 07/10/2021 History of total hip arthroplasty, left [Z96.64*07/17/2021 Syncope, cardiogenic [R55] 12/16/2021 Palpitations [R00.2] 12/16/2021 Obesity, Class III, BMI >= 40 [E66.01] 01/27/2022 Atrial fibrillation, persistent (HCC) [I48.19] 01/27/2022 01/27/2022 Dyspnea on exertion [R06.09] 02/14/2022 12/17/2022 Coronary artery disease involving [place]*02/20/2022 Statin intolerance [Z78.9] 06/02/2022 Paroxysmal atrial fibrillation (HCC) [I48.0] 06/02/2022 Hypothyroidism (more content not included)...[facility] 01-12-2023 History of Present illness Narrative* Radha Martines, KYLEE - 01/12/2023 12:59 PM EDT [facility] Telephonic Outreach Provider Action/FYI Contacted for: Routine Telephonic Outreach Contact made with patient: Yes Patient identified by name and date of . Discussed care with patient Are you experiencing any new or worsening symptoms you need to talk about today? No Disease Specific Do you check your blood pressure at home? Yes, Enter readings: good normal range Do you have new or worsening shortness of breath with activity? Yes Has had more SOB but is outsidemore and trying to do things. Has OV with [facility] on 6-5-23 and will discuss it with him Do you feel like you are dehydrated for any reason, including not being able to eat or drink normally, or having less urine/much darker urine than normal for you? No Do you check your daily weight at home? 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 Routed to: No Action Needed MICHELLE Education Provided this Outreach: No Radha Martines RN January 12, 2023 1:04 PM documented in this encounterWay[facility]-2023 NoteHNO ID: [id number] Author: Radha Martines RN Service: ? Author Type: Registered Nurse Type: Progress Notes Filed: 01/09/2023 4:09 PM Note Text: [facility] Telephonic Outreach Provider Action/FYI Contacted for: Routine Telephonic Outreach Contact made with patient: No, left message. Radha Martines RN January 09, 2023 4:08 [facility]05-05-2023 History of Present illness Narrative* Radha Martines RN - 01/09/2023 4:06 PM EDT [facility] Telephonic Outreach Provider Action/FYI Contacted for: Routine Telephonic Outreach Contact made with patient: No, left message. Radha Martines RN January 09, 2023 4:08 PM documented in this encounterWay[facility]-2023 NotePatient Outreach ([facility]) DAYANARA GONZALEZ ([id number]) 1940 F FNS Date Time Provider Department 01/09/23 RADHA MARTINES During your visit today, we recorded the following information about you: Radha Martines RN 01/09/2023 4:09 PM Signed [facility] Telephonic Outreach Provider Action/FYI Contacted for: Routine Telephonic Outreach Contact made with patient: No, left message. Radha Martines RN January 09, 2023 4:08 PM Allergies As of Date: 01/09/2023 Noted Allergy Reaction NSAIDS (NON-STEROIDAL ANTI-INFLAM*11/07/2021 14 - Other: See Comments Comments: Pt. states has cautioned her not to use due to kidney disease CIAVKDA-DFS-WKO REDUCTASE INHIBIT*07/05/2020 17 - Myalgia Date Reviewed: 12/31/2022 Reviewed by: Roma Gutierrez - Fully Assessed Reason for Visit: Community Monitoring Outreach [Other] Cmt: [facility] Telephonic Outreach - Routine Prescriptions as of 01/09/2023 - clotrimazole (LOTRIMIN AF, CLOTRIMAZOLE,) 1 % cream Apply to affected area twice daily. - triamcinolone acetonide (KENALOG) 0.1 % cream Apply 1 application to affected area three times daily. Apply sparingly to area for rash/itching. - famotidine (PEPCID) 20 mg tablet Take 1 tablet by mouth at bedtime as needed. - cetirizine (ZYRTEC) 10 mg tablet Take 1 tablet by mouth once daily. - levothyroxine (LEVOXYL) 112 mcg tablet Take 1 tablet by mouth once daily. Take on empty stomach. For thyroid. - metoprolol succinate ER (TOPROL XL) 25 mg 24 hr tablet Take 1 tablet by mouth once daily. - ezetimibe (ZETIA) 10 mg tablet Take 1 tablet by mouth once daily. - hydroCHLOROthiazide (HYDRODIURIL, ESIDRIX) 25 mg tablet Take 1 tablet by mouth once daily. - benzonatate (TESSALON PERLES) 100 mg capsule Take 1 capsule by mouth three times daily as needed for cough. - lisinopril (ZESTRIL, PRINIVIL) 40 mg tablet Take 1 tablet by mouth once daily. - apixaban (ELIQUIS) 5 mg tab(s) Take 1 tablet by mouth twice daily. - CPAP Initiate Auto PAP @ 5-20 cm of water with humidification. Mask (per patient preference) optional chin strap (if indicated) , filters, tubing, humidifier and lifetime supplies. - acetaminophen (TYLENOL) 500 mg tablet Take 2 tablets by mouth every 8 hours as needed for pain. - aspirin, enteric coated (ECOTRIN LOW STRENGTH) 81 mg EC tablet Take 1 tablet by mouth twice daily. - multivitamin tablet Take 1 tablet by mouth once daily. 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 Neoplasm of uncertain behavior of skin [D48.5] 06/27/2010 01/29/2012 Disturbance of Skin Sensation: tenderness//pain*06/27/2010 01/29/2012 Osteoarthritis [M19.90] 03/31/2011 Essential hypertension, benign [I10] 08/03/2012 Dizziness and giddiness [R42] 09/30/2013 05/26/2016 Morbid obesity due to excess calories (HCC) [E6*06/06/2016 Lung nodule [R91.1] 06/09/2016 CKD (chronic kidney disease) stage 3, GFR 30-59*11/23/2018 Lightheaded [R42] 01/05/2020 12/17/2022 Atrial tachycardia (HCC) [I47.1] 11/05/2020 Ventricular tachycardia, nonsustained (HCC) [I4*11/05/2020 Chronic right-sided low back pain with right-si*11/16/2020 Primary osteoarthritis of right knee [M17.11] 07/10/2021 Former smoker [Z87.891] 07/10/2021 History of total hip arthroplasty, left [Z96.64*07/17/2021 Syncope, cardiogenic [R55] 12/16/2021 Palpitations [R00.2] 12/16/2021 Obesity, Class III, BMI >= 40 [E66.01] 01/27/2022 Atrial fibrillation, persistent (HCC) [I48.19] 01/27/2022 01/27/2022 Dyspnea on exertion [R06.09] 02/14/2022 12/17/2022 Coronary artery disease involving [place]ose*02/20/2022 Statin intolerance [Z78.9] 06/02/2022 Paroxysmal atrial fibrillation (HCC) [I48.0] 06/02/2022 Hypothyroidism, acquired [E03.9] 09/03/2022 Encounter Status:Closed by RADHA MARTINES on 01/09/23[facility] 12-31-2022 NoteHNO ID: [id number] Author: Iza Coughlin APRN.RN SURGERY Service: ? Author Type: Nurse Practitioner Type: Progress Notes Filed: 12/31/2022 11:45 AM Note Text: Subjective The history is provided by the patient. No sign language instructor was used. HPI Dayanara Gonzalez is a 82 year old female who presents today for CC of itchy rash on neck, and underarms for 3 weeks and not going away The patients reports no new exposures, no recent contact with unusual or new material, no recent change in detergents, soap, or shampoo, and no other family members with the same rash. The rash is discribed as Erythema, raised, itchy Past treatments No Does the patient have a personal history of: Seasonal allergies: yes: Recent travel: no Recent infections: no Beginning a new medication: no Symptoms are triggered by: nothing Other symtoms include: none of the following - appetite change, weight change, fever, chills, malaise, and fatigue BP 130/80 Pulse 82 Temp 36.2 ?C (97.2 ?F) Resp 18 Wt 110.7 kg (244 lb) SpO2 95% BMI 43.22 kg/m? Social History Tobacco Use Smoking status: Former Packs/day: 0.50 Years: 20.00 Pack years: 10.00 Types: Cigarettes Quit date: 11/08/2000 Years since quittin.1 Smokeless tobacco: Never Tobacco comments: 2003 quit Vaping Use Vaping Use: Never used Substance Use Topics Alcohol use: No Drug use: No PAST MEDICAL HISTORY Diagnosis Date Diarrhea Generalized osteoarthrosis, unspecified site HTN (hypertension) Lung nodule repeat ct in spring, benign Other and unspecified hyperlipidemia Rectal bleeding I have confirmed and edited as necessary, the [facility] Review of Systems Constitutional: Negative for chills and fever. HENT: Negative for congestion, ear pain, sinus pain and sore throat. Respiratory: Negative for cough, sputum production, shortness of breath and wheezing. Cardiovascular: Negative for chest pain. Musculoskeletal: Negative for myalgias. Skin: Positive for rash. Neurological: Negative for headaches. Objective Physical Exam Vitals and nursing note reviewed. Cardiovascular: Rate and Rhythm: Normal rate and regular rhythm. Pulmonary: Effort: Pulmonary effort is normal. Breath sounds: Normal breath sounds. Skin: General: Skin is warm and dry. Findings: Erythema and rash present. Rash is macular and papular. Neurological: Mental Status: She is alert and oriented to person, place, and time. Psychiatric: Mood and Affect: Affect normal. ASSESSMENT/PLAN: 1. Rash - ICD9: 782.1, ICD10: R21 Differential DX - dermatitis, irritant, contact, possible yeast underarms Pepcid/zyrtec as needed for itching Triamcinolone cream Lotrimin for underarms No improvement follow up with dermatology. Diagnosis and treatment plan were discussed and questions were answered to the patient's satisfaction. Pt acknowledged understanding of concepts and follow up plan. Specific signs and symptoms that would indicate the need for higher level of care were discussed in detail warranting prompt ER evaluation. [facility]oughlin [facility]N.[facility] History of Present illness Narrative* zIa Coughlin APRN.[facility] - 12/31/2022 11:36 AM EDT Images from the original note were not included. Subjective The history is provided by the patient. No sign language instructor was used. HPI Dayanara Gonzalez is a 82 year old female who presents today for CC of itchy rash on neck, and underarms for 3 weeks and not going away The patients reports no new exposures, no recent contact with unusual or new material, no recent change in detergents, soap, or shampoo, and no other family members with the same rash. The rash is discribed as Erythema, raised, itchy Past treatments No Does the patient have a personal history of: Seasonal allergies: yes: Recent travel: no Recent infections: no Beginning a new medication: no Symptoms are triggered by: nothing Other symtoms include: none of the following - appetite change, weight change, fever, chills, malaise, and fatigue BP 130/80 Pulse 82 Temp 36.2 C (97.2 F) Resp 18 Wt 110.7 kg (244 lb) SpO2 95% BMI 43.22kg/m Social History Tobacco Use Smoking status: Former Packs/day: 0.50 Years: 20.00 Pack years: 10.00 Types: Cigarettes Quit date: 11/08/2000 Years since quittin.1 Smokeless tobacco: Never Tobacco comments: 2003 quit Vaping Use Vaping Use: Never used Substance Use Topics Alcohol use: No Drug use: No PAST MEDICAL HISTORY Diagnosis Date Diarrhea Generalized osteoarthrosis, unspecified site HTN (hypertension) Lung nodule repeat ct in spring, benign Other and unspecified hyperlipidemia Rectal bleeding I have confirmed and edited as necessary, the [facility] Review of Systems Constitutional: Negative for chills and fever. HENT: Negative for congestion, ear pain, sinus pain and sore throat. Respiratory: Negative for cough, sputum production, shortness of breath and wheezing. Cardiovascular: Negative for chest pain. Musculoskeletal: Negative for myalgias. Skin: Positive for rash. Neurological: Negative for headaches. Objective Physical Exam Vitals and nursing note reviewed. Cardiovascular: Rate and Rhythm: Normal rate and regular rhythm. Pulmonary: Effort: Pulmonary effort is normal. Breath sounds: Normal breath sounds. Skin: General: Skin is warm and dry. Findings: Erythema and rash present. Rash is macular and papular. Neurological: Mental Status: She is alert and oriented to person, place, and time. Psychiatric: Mood and Affect: Affect normal. ASSESSMENT/PLAN: 1. Rash - ICD9: 782.1, ICD10: R21 Differential DX - dermatitis, irritant, contact, possible yeast underarms Pepcid/zyrtec as needed for itching Triamcinolone cream Lotrimin for underarms No improvement follow up with dermatology. Diagnosis and treatment plan were discussed and questions were answered to the patient's satisfaction. Pt acknowledged understanding of concepts and follow up plan. Specific signs and symptoms that would indicate the need for higher level of care were discussed indetail warranting prompt ER evaluation. Iza Coughlin APRN.RN SURGERY documented in this [facility]04-26-2023 Instructions* Patient Instructions* Iza Coughlin APRN.CNP - 12/31/2022 11:34 AM EDT Zyrtec 10 mg By mouth daily at bedtime Pepcid 20 mg twice a day Use lotrimin (clotrimazole) cream underarms, if no improvement or worsens change to triamcinolone cream Triamcinolone cream to neck area. [facility] NoteHNO ID: [id number] Author: Radha Martines RN Service: ? Author Type: Registered Nurse Type: Progress Notes Filed: 12/26/2022 2:32 PM Note Text: [facility] Telephonic Outreach Provider Action/FYI Contacted for: Routine Telephonic Outreach Contact made with patient: No, left message. Radha Martines RN December 26, 2022 2:31 [facility]04-21-2023 History of Present illness Narrative* Radha Martines RN - 12/26/2022 2:28 PM EDT [facility] Telephonic Outreach Provider Action/FYI Contacted for: Routine Telephonic Outreach Contact made with patient: No, left message. Radha Martines RN December 26, 2022 2:31 PM documented in this [facility]04-21-2023 NotePatient Outreach [place] [place] DAYANARA GONZALEZ ([id number]) 1940 F FNS Date Time Provider Department 12/26/22 RADHA MARTINESG During your visit today, we recorded the following information about you: Radha Martines RN 12/26/2022 2:32 PM Signed [facility] Telephonic Outreach Provider Action/FYI Contacted for: Routine Telephonic Outreach Contact made with patient: No, left message. Radha Martines RN December 26, 2022 2:31 PM Allergies As of Date: 12/26/2022 Noted Allergy Reaction NSAIDS (NON-STEROIDAL ANTI-INFLAM*11/07/2021 14 - Other: See Comments Comments: Pt. states has cautioned her not to use due to kidney disease SURAOQO-RAQ-VMO REDUCTASE INHIBIT*07/05/2020 17 - Myalgia Date Reviewed: 12/17/2022 Reviewed by: Lulu Powell LPN - Fully Assessed Reason for Visit: Community Monitoring Outreach [Other] Cmt: [facility] Telephonic Outreach - Routine Prescriptions as of 12/26/2022 - levothyroxine (LEVOXYL) 112 mcg tablet Take 1 tablet by mouth once daily. Take on empty stomach. For thyroid. - metoprolol succinate ER (TOPROL XL) 25 mg 24 hr tablet Take 1 tablet by mouth once daily. - ezetimibe (ZETIA) 10 mg tablet Take 1 tablet by mouth once daily. - hydroCHLOROthiazide (HYDRODIURIL, ESIDRIX) 25 mg tablet Take 1 tablet by mouth once daily. - benzonatate (TESSALON PERLES) 100 mg capsule Take 1 capsule by mouth three times daily as needed for cough. - lisinopril (ZESTRIL, PRINIVIL) 40 mg tablet Take 1 tablet by mouth once daily. - apixaban (ELIQUIS) 5 mg tab(s) Take 1 tablet by mouth twice daily. - CPAP Initiate Auto PAP @ 5-20 cm of water with humidification. Mask (per patient preference) optional chin strap (if indicated) , filters, tubing, humidifier and lifetime supplies. - acetaminophen (TYLENOL) 500 mg tablet Take 2 tablets by mouth every 8 hours as needed for pain. - aspirin, enteric coated (ECOTRIN LOW STRENGTH) 81 mg EC tablet Take 1 tablet by mouth twice daily. - multivitamin tablet Take 1 tablet by mouth once daily. 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 Neoplasm of uncertain behavior of skin [D48.5] 06/27/2010 01/29/2012 Disturbance of Skin Sensation: tenderness//pain*06/27/2010 01/29/2012 Osteoarthritis [M19.90] 03/31/2011 Essential hypertension, benign [I10] 08/03/2012 Dizziness and giddiness [R42] 09/30/2013 05/26/2016 Morbid obesity due to excess calories (HCC) [E6*06/06/2016 Lung nodule [R91.1] 06/09/2016 CKD (chronic kidney disease) stage 3, GFR 30-59*11/23/2018 Lightheaded [R42] 01/05/2020 12/17/2022 Atrial tachycardia (HCC) [I47.1] 11/05/2020 Ventricular tachycardia, nonsustained (HCC) [I4*11/05/2020 Chronic right-sided low back pain with right-si*11/16/2020 Primary osteoarthritis of right knee [M17.11] 07/10/2021 Former smoker [Z87.891] 07/10/2021 History of total hip arthroplasty, left [Z96.64*07/17/2021 Syncope, cardiogenic [R55] 12/16/2021 Palpitations [R00.2] 12/16/2021 Obesity, Class III, BMI >= 40 [E66.01] 01/27/2022 Atrial fibrillation, persistent (HCC) [I48.19] 01/27/2022 01/27/2022 Dyspnea on exertion [R06.09] 02/14/2022 12/17/2022 Coronary artery disease involving [place]*02/20/2022 Statin intolerance [Z78.9] 06/02/2022 Paroxysmal atrial fibrillation (HCC) [I48.0] 06/02/2022 Hypothyroidism, acquired [E03.9] 09/03/2022 Encounter Status:Closed by RADHA MARTINES on 12/26/22[facility] 12-25-2022 NoteHNO ID: [id number] Author: Radha Martines RN Service: ? Author Type: Registered Nurse Type: Progress Notes Filed: 12/25/2022 1:25 PM Note Text: CD Telephonic Outreach Provider Action/FYI Contacted for: Routine Telephonic Outreach Contact made with patient: No, left message. Radha Martines RN December 25, 2022 1:24 [facility] NotePatient Outreach [place] [place] DAYANARA GONZALEZ ([id number]) 1940 F FNS Date Time Provider Department 12/25/22 RADHA MARTINES During your visit today, we recorded the following information about you: Radha Martines RN 12/25/2022 1:25 PM Signed CD Telephonic Outreach Provider Action/FYI Contacted for: Routine Telephonic Outreach Contact made with patient: No, left message. Radha Martines RN December 25, 2022 1:24 PM Allergies As of Date: 12/25/2022 Noted Allergy Reaction NSAIDS (NON-STEROIDAL ANTI-INFLAM*11/07/2021 14 - Other: See Comments Comments: Pt. states has cautioned her not to use due to kidney disease JEBVNUY-YWV-ODY REDUCTASE INHIBIT*07/05/2020 17 - Myalgia Date Reviewed: 12/17/2022 Reviewed by: Lulu Powell LPN - Fully Assessed Reason for Visit: Community Monitoring Outreach [Other] Cmt: [facility] Telephonic Outreach - Routine Prescriptions as of 12/25/2022 - levothyroxine (LEVOXYL) 112 mcg tablet Take 1 tablet by mouth once daily. Take on empty stomach. For thyroid. - metoprolol succinate ER (TOPROL XL) 25 mg 24 hr tablet Take 1 tablet by mouth once daily. - ezetimibe (ZETIA) 10 mg tablet Take 1 tablet by mouth once daily. - hydroCHLOROthiazide (HYDRODIURIL, ESIDRIX) 25 mg tablet Take 1 tablet by mouth once daily. - benzonatate (TESSALON PERLES) 100 mg capsule Take 1 capsule by mouth three times daily as needed for cough. - lisinopril (ZESTRIL, PRINIVIL) 40 mg tablet Take 1 tablet by mouth once daily. - apixaban (ELIQUIS) 5 mg tab(s) Take 1 tablet by mouth twice daily. - CPAP Initiate Auto PAP @ 5-20 cm of water with humidification. Mask (per patient preference) optional chin strap (if indicated) , filters, tubing, humidifier and lifetime supplies. - acetaminophen (TYLENOL) 500 mg tablet Take 2 tablets by mouth every 8 hours as needed for pain. - aspirin, enteric coated (ECOTRIN LOW STRENGTH) 81 mg EC tablet Take 1 tablet by mouth twice daily. - multivitamin tablet Take 1 tablet by mouth once daily. 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 Neoplasm of uncertain behavior of skin [D48.5] 06/27/2010 01/29/2012 Disturbance of Skin Sensation: tenderness//pain*06/27/2010 01/29/2012 Osteoarthritis [M19.90] 03/31/2011 Essential hypertension, benign [I10] 08/03/2012 Dizziness and giddiness [R42] 09/30/2013 05/26/2016 Morbid obesity due to excess calories (HCC) [E6*06/06/2016 Lung nodule [R91.1] 06/09/2016 CKD (chronic kidney disease) stage 3, GFR 30-59*11/23/2018 Lightheaded [R42] 01/05/2020 12/17/2022 Atrial tachycardia (HCC) [I47.1] 11/05/2020 Ventricular tachycardia, nonsustained (HCC) [I4*11/05/2020 Chronic right-sided low back pain with right-si*11/16/2020 Primary osteoarthritis of right knee [M17.11] 07/10/2021 Former smoker [Z87.891] 07/10/2021 History of total hip arthroplasty, left [Z96.64*07/17/2021 Syncope, cardiogenic [R55] 12/16/2021 Palpitations [R00.2] 12/16/2021 Obesity, Class III, BMI >= 40 [E66.01] 01/27/2022 Atrial fibrillation, persistent (HCC) [I48.19] 01/27/2022 01/27/2022 Dyspnea on exertion [R06.09] 02/14/2022 12/17/2022 Coronary artery disease involving [place]*02/20/2022 Statin intolerance [Z78.9] 06/02/2022 Paroxysmal atrial fibrillation (HCC) [I48.0] 06/02/2022 Hypothyroidism, acquired [E03.9] 09/03/2022 Encounter Status:Closed by RADHA MARTINES on 12/25/22[facility] 12-17-2022 NoteHNO ID: [id number] Author: Norm Sharif MD Service: ? Author Type: Physician Type: Progress Notes Filed: 12/17/2022 11:00 AM Note Text: Patient presents with: Recheck: 3 month HPI: Patient presents today for office visit for follow up. Hypothyroid: Meds were adjusted. Tsh is improving. Component Latest Ref Rng AND Units 10/20/2022 12/10/2022 TSH 0.270 - 4.200 mIU/L 42.900 (H) 7.260 (H) Free T4 0.9 - 1.7 ng/dL 1.4 CARDIO: changed her from amiodarone to metoprolol. No chest pain or shortness of breath. Mild lightheadedness. See them again soon. No palpitations. CATHERINE:still using her cpap when she can. Is benefiting from it. Having allergy issues. Suggested flonase otc which she has. No issues with zetia. No bleeding or bruising issues that are new. MEDICATIONS: Current Outpatient Medications Medication Sig levothyroxine (LEVOXYL) 112 mcg tablet Take 1 tablet by mouth once daily. Take on empty stomach. For thyroid. metoprolol succinate ER (TOPROL XL) 25 mg 24 hr tablet Take 1 tablet by mouth once daily. ezetimibe (ZETIA) 10 mg tablet Take 1 tablet by mouth once daily. hydroCHLOROthiazide (HYDRODIURIL, ESIDRIX) 25 mg tablet Take 1 tablet by mouth once daily. benzonatate (TESSALON PERLES) 100 mg capsule Take 1 capsule by mouth three times daily as needed for cough. lisinopril (ZESTRIL, PRINIVIL) 40 mg tablet Take 1 tablet by mouth once daily. apixaban (ELIQUIS) 5 mg tab(s) Take 1 tablet by mouth twice daily. CPAP Initiate Auto PAP @ 5-20 cm of water with humidification. Mask (per patient preference) optional chin strap (if indicated) , filters, tubing, humidifier and lifetime supplies. acetaminophen (TYLENOL) 500 mg tablet Take 2 tablets by mouth every 8 hours as needed for pain. aspirin, enteric coated (ECOTRIN LOW STRENGTH) 81 mg EC tablet Take 1 tablet by mouth twice daily. (Patient taking differently: Take 81 mg by mouth twice daily. Once daily) multivitamin tablet Take 1 tablet by mouth once daily. Current Facility-Administered Medications Medication Dose Route Frequency perflutren lipid microspheres 1.3 mL in NaCl (PF) 0.9% 10 mL injection (DEFINITY) INTRAVENOUS DIRECTED PRN sodium chloride 0.9 % (flush) 10 mL (BD POSIFLUSH) 10 mL INTRAVENOUS DIRECTED PRN ALLERGIES: ALLERGIES Allergen Reactions Nsaids (Non-Steroid* Other: See Comments Pt. states has cautioned her not to use due to kidney disease Tdmstgb-Vsy-Yls Red* Myalgia PAST MEDICAL HISTORY Diagnosis Date Diarrhea Generalized osteoarthrosis, unspecified site HTN (hypertension) Lung nodule repeat ct in spring, benign Other and unspecified hyperlipidemia Rectal bleeding PAST SURGICAL HISTORY Procedure Laterality Date COLONOSCOPY 08/26/2005 VJ - scattered tic EGD 08/26/2005 VJ - normal PAST SURGICAL HISTORY OF Right carpal tunnel on the right hand PAST SURGICAL HISTORY OF Right arthoscopy on the right knee PAST SURGICAL HISTORY OF Right 01/2016 ORIF right ankle, 2 small screws remain by Dr. Bedoya TOTAL HIP REPLACEMENT Left 07/17/2021 Left total hip arthroplasty TOTAL KNEE REPLACEMENT Right 12/25/2021 Right total knee replacement UNSPECIFIED ORAL SURGERY PROCEDURE, BY REPORT wisdom teeth removed. FAMILY HISTORY Problem Relation Age of Onset Heart Mother Hypertension Mother Hypertension Father Renal Disease Father Asthma No Family History COPD No Family History Social History Tobacco Use Smoking status: Former Packs/day: 0.50 Years: 20.00 Pack years: 10.00 Types: Cigarettes Quit date: 11/08/2000 Years since quittin.1 Smokeless tobacco: Never Tobacco comments: 2003 quit Vaping Use Vaping Use: Never used Substance Use Topics Alcohol use: No Drug use: No Reviewed current medications, allergies, past medical history, surgical history, family history and social history today. REVIEW OF SYSTEMS All other reviewed and negative other than HPI. HEALTH MAINTENANCE: Reviewed health maintenance issues today and recommended the following in detail. DTAP,TDAP,TD(1 - Tdap) Never done SHINGRIX VACCINE(1 of 2) Never done ADVANCE DIRECTIVE DISCUSSION- has a dpoa, daughter and son have them. DEPRESSION ASSESSMENT Never done VITALS: BP 138/82 Pulse (!) 58 Resp 18 Wt 107 kg (236 lb) SpO2 98% BMI 41.81 kg/m? Last 4 Encounter Wt Readings: Date: Wt: 12/17/2022 107 kg (236 lb) 10/06/2022 108 kg (238 lb) 10/02/2022 107.8 kg (237 lb 9.6 oz) 09/17/2022 107.5 kg (237 lb) PHYSICAL EXAMINATION: General appearance: Well appearing, alert, in no acute distress, well-hydrated, well nourished. Skin: Skin color, texture, turgor normal, no suspicious rashes or lesions Head: Normocephalic, no masses, lesions, tenderness or abnormalities Lungs: Lungs clear to auscultation. No wheezing, rhonchi, rales Heart: RRR without murmur, gallop, or rubs. No ectopy Abdomen: Normal abdominal exam, Abdomen soft, (more content not included)... [facility]04-12-[facility] History of Present illness Narrative* Norm Sharif MD - 12/17/2022 10:47 AM EDT Patient presents with: Recheck: 3 month HPI: Patient presents today for office visit for follow up. Hypothyroid: Meds were adjusted. Tsh is improving. Component Latest Ref Rng & Units 10/20/2022 12/10/2022 TSH 0.270 - 4.200 mIU/L 42.900 (H) 7.260 (H) Free T4 0.9 - 1.7 ng/dL 1.4 CARDIO: changed her from amiodarone to metoprolol. No chest pain or shortness of breath. Mild lightheadedness. See them again soon. No palpitations. CATHERINE:still using her cpap when she can. Is benefiting from it. Having allergy issues. Suggested flonase otc which she has. No issues with zetia. No bleeding or bruising issues that are new. MEDICATIONS: Current Outpatient Medications Medication Sig levothyroxine (LEVOXYL) 112 mcg tablet Take 1 tablet by mouth once daily. Take on empty stomach. For thyroid. metoprolol succinate ER (TOPROL XL) 25 mg 24 hr tablet Take 1 tablet by mouth once daily. ezetimibe (ZETIA) 10 mg tablet Take 1 tablet by mouth once daily. hydroCHLOROthiazide (HYDRODIURIL, ESIDRIX) 25 mg tablet Take 1 tablet by mouth once daily. benzonatate (TESSALON PERLES) 100 mg capsule Take 1 capsule by mouth three times daily as needed for cough. lisinopril (ZESTRIL, PRINIVIL) 40 mg tablet Take 1 tablet by mouth once daily. apixaban (ELIQUIS) 5 mg tab(s) Take 1 tablet by mouth twice daily. CPAP Initiate Auto PAP @ 5-20 cm of water with humidification. Mask (per patient preference) optional chin strap (if indicated) , filters, tubing, humidifier and lifetime supplies. acetaminophen (TYLENOL) 500 mg tablet Take 2 tablets by mouth every 8 hours as needed for pain. aspirin, enteric coated (ECOTRIN LOW STRENGTH) 81 mg EC tablet Take 1 tablet by mouth twice daily. (Patient taking differently: Take 81 mg by mouth twice daily. Once daily) multivitamin tablet Take 1 tablet by mouth once daily. Current Facility-Administered Medications Medication Dose Route Frequency perflutren lipid microspheres 1.3 mL in NaCl (PF) 0.9% 10 mL injection (DEFINITY) INTRAVENOUS DIRECTED PRN sodium chloride 0.9 % (flush) 10 mL (BD POSIFLUSH) 10 mL INTRAVENOUS DIRECTED PRN ALLERGIES: ALLERGIES Allergen Reactions Nsaids (Non-Steroid* Other: See Comments Pt. states has cautioned her not to use due to kidney disease Orwkgqt-Fhx-Gbj Red* Myalgia PAST MEDICAL HISTORY Diagnosis Date Diarrhea Generalized osteoarthrosis, unspecified site HTN (hypertension) Lung nodule repeat ct in spring, benign Other and unspecified hyperlipidemia Rectal bleeding PAST SURGICAL HISTORY Procedure Laterality Date COLONOSCOPY 08/26/2005 [facility]J - scattered tic EGD 08/26/2005 VJ - normal PAST SURGICAL HISTORY OF Right carpal tunnel on the right hand PAST SURGICAL HISTORY OF Right arthoscopy on the right knee PAST SURGICAL HISTORY OF Right 01/2016 ORIF right ankle, 2 small screws remain by Dr. Bedoya TOTAL HIP REPLACEMENT Left 07/17/2021 Left total hip arthroplasty TOTAL KNEE REPLACEMENT Right 12/25/2021 Right total knee replacement UNSPECIFIED ORAL SURGERY PROCEDURE, BY REPORT wisdom teeth removed. FAMILY HISTORY Problem Relation Age of Onset Heart Mother Hypertension Mother Hypertension Father Renal Disease Father Asthma No Family History COPD No Family History Social History Tobacco Use Smoking status: Former Packs/day: 0.50 Years: 20.00 Pack years: 10.00 Types: Cigarettes Quit date: 11/08/2000 Years since quittin.1 Smokeless tobacco: Never Tobacco comments: 2003 quit Vaping Use Vaping Use: Never used Substance Use Topics Alcohol use: No Drug use: No Reviewed current medications, allergies, past medical history, surgical history, family history andsocial history today. REVIEW OF SYSTEMS All other reviewed and negative other than HPI. HEALTH MAINTENANCE: Reviewed health maintenance issues today and recommended the following in detail. DTAP,TDAP,TD(1 - Tdap) Never done SHINGRIX VACCINE(1 of 2) Never done ADVANCE DIRECTIVE DISCUSSION- has a dpoa, daughter and son have them. DEPRESSION ASSESSMENT Never done VITALS: BP 138/82 Pulse (!) 58 Resp 18 Wt 107 kg (236 lb) SpO2 98% BMI 41.81 kg/m Last 4 Encounter Wt Readings: Date: Wt: 12/17/2022 107 kg (236 lb) 10/06/2022 108 kg (238 lb) 10/02/2022 107.8 kg (237 lb 9.6 oz) 09/17/2022 107.5 kg (237 lb) PHYSICAL EXAMINATION: General appearance: Well appearing, alert, in no acute distress, well-hydrated, well nourished. Skin: Skin color, texture, turgor normal, no suspicious rashes or lesions Head: Normocephalic, no masses, lesions, tenderness or abnormalities Lungs: Lungs clear to auscultation. No wheezing, rhonchi, rales Heart: RRR without murmur, gallop, or rubs. No ectopy Abdomen: Normal abdominal exam, Abdomen soft, non-tender. Bowel sounds normal. No masses, organomegaly Extremities: No deformities, edema, skin discoloration, clubbing or cyanosis. Good capillary refill. Musculoskeletal: No joint swelling, deformity, or tenderness ASSESSMENT/PLAN: 1. Atrial tachycardia (HCC) - ICD9: 427.89, ICD10: I47.1 (primary diagnosis) - stable. 2. Ventricular tachycardia, nonsustained (HCC) - ICD9: 427.1, ICD10: I47.29 - doing well. 3. Coronary artery disease involving [place] coronary artery of [place] heart without angina pectoris- ICD9: 414.01, ICD10: I25.10 - per cardiology. 4. Paroxysmal atrial fibrillation (HCC) - ICD9: 427.31, ICD10: I48.0 - continue meds. 5. Essential hypertension, benign - ICD9: 401.1, ICD10: I10 - good control - Continue current medication(s) - Goal of BP <130/80 6. Mixed hyperlipidemia - ICD9: 272.2, ICD10: E78.2 - good control - Continue current medication. - LIPID PANEL BASIC 7. Stage 3 chronic kidney disease, unspecified whether stage 3a or 3b CKD (HCC) - ICD9: 585.3, ICD10: N18.30 - follow labs. - CBC + DIFF - COMP METABOLIC PANEL 8. Hypothyroidism, acquired - ICD9: 244.9, ICD10: E03.9 - improving. Recheck labs in six weeks 9. Morbid obesity due to excess calories (HCC) - ICD9: 278.01, ICD10: E66.01 - stable. Norm Sharif MD documented [facility] NoteHNO ID: [id number] Author: Radha Martines RN Service: ? Author Type: Registered Nurse Type: Progress Notes Filed: 11/28/2022 3:27 PM Note Text: [facility]IGHT [facility] TELEPHONIC OUTREACH Provider Action/FYI: Contact made with patient: Yes Patient identified by name and . Discussed care with patient It?s nice talking to you again. As a reminder, this is our bi-weekly check-in where I will be asking you questions about your health. This will only take a few minutes of your time. Is this a good time? Yes Symptoms What Chronic Disease(s) does the patient have: CKD Do you check your blood pressures at home? Yes, Enter readings: 134/76 Do you have new or worse shortness of breath with activity? Yes a little bit more than usual for the past few weeks. Some days are worse than others. Wants to discuss with PCP at NOV. Does not want to discuss with PCP sooner or want a sooner OV with PCP Do you feel like you are dehydrated for any reason, including not being able to eat or drink normally, or having less urine/much darker urine than normal for you? No Do you check your daily weight at home? No Are you having any other symptoms that your PCP needs to know about? No Symptoms: Symptom Escalation MICHELLE Education Ordered -: No The patient required an escalation for symptom(s)? No Medications Do you have any questions about taking your medication or which medications you should be on? No Do you need any medication refills at this time, including any of the medications you might take only when needed? No Social We would like to make sure you have what you need so that your basic needs are met- including your personal safety, food, housing, transportation and medications? Would you like to speak with a social work team foreman to help give you support for any of these needs? No It can be normal to feel anxious or down during a time like this. Would you like to talk to a mental health professional about how you have been feeling? No Closing Thank you for taking the time to talk with me today. We want to work with you to ensure that we are keeping your medical condition(s) well-controlled and to keep you healthy and out of the doctor's office or hospital. It?s also not too late for me to sign you up for automated weekly questionnaires through [employer]. This is an easy way for us to stay connected each week. Are you interested? No, I understand. We can always sign you up in the future if you change your mind. Just as a reminder, will continue to call you every other week to check in on your health. Our calls should take 10-15 minutes or less. Remember, if you have concerns in between our calls, please call your PCP's office right away. Thank you. Enter next patient outreach date for two weeks on the same day of the week as today in the Track Pt Outreach and End outreach.[facility] 11-28-2022 History of Present illness Narrative* Radha Martines RN - 11/28/2022 3:06 PM EDT INSIGHT CDM TELEPHONIC OUTREACH Provider Action/FYI: Contact made with patient: Yes Patient identified by name and . Discussed care with patient It s nice talking to you again. As a reminder, this is our bi-weekly check-in where I will be asking you questions about your health. This will only take a few minutes of your time. Is this a good time? Yes Symptoms What Chronic Disease(s) does the patient have: CKD Do you check your blood pressures at home? Yes, Enter readings: 134/76 Do you have new or worse shortness of breath with activity? Yes a little bit more than usual for the past few weeks. Some days are worse than others. Wants to discuss with PCP at NOV. Does not want to discuss with PCP sooner or want a sooner OV with PCP Do you feel like you are dehydrated for any reason, including not being able to eat or drink normally, or having less urine/much darker urine than normal for you? No Do you check your daily weight at home? No Are you having any other symptoms that your PCP needs to know about? No Symptoms: Symptom Escalation MICHELLE Education Ordered -: No The patient required an escalation for symptom(s)? No Medications Do you have any questions about taking your medication or which medications you should be on? No Do you need any medication refills at this time, including any of the medications you might take only when needed? No Social We would like to make sure you have what you need so that your basic needs are met- including your personal safety, food, housing, transportation and medications? Would you like to speak with a social work team foreman to help give you support for any of these needs? No It can be normal to feel anxious or down during a time like this. Would you like to talk to a mental health professional about how you have been feeling? No Closing Thank you for taking the time to talk with me today. We want to work with you to ensure that we arekeeping your medical condition(s) well-controlled and to keep you healthy and out of the doctor's office or hospital. It s also not too late for me to sign you up for automated weekly questionnaires through [employer]. This is an easy way for us to stay connected each week. Are you interested? No, I understand. We can always sign you up in the future if you change your mind. Just as a reminder, will continue to call you every other week to check in on your health. Our calls should take 10-15 minutes or less. Remember, if you have concerns in between our calls, please call your PCP's office right away. Thank you. Enter next patient outreach date for two weeks on the same day of the week as today in the Track PtOutreach and End outreach. documented in this encounterWay[facility]03-24-2023 NotePatient Outreach (ROMIEG) DAYANARA GONZALEZ ([id number]) 1940 F FNS Date Time Provider Department 11/28/22 RADHA MARTINES During your visit today, we recorded the following information about you: Radha Martines RN 11/28/2022 3:27 PM Signed [facility]IGHT [facility] TELEPHONIC OUTREACH Provider Action/FYI: Contact made with patient: Yes Patient identified by name and . Discussed care with patient It?s nice talking to you again. As a reminder, this is our bi-weekly check-in where I will be asking you questions about your health. This will only take a few minutes of your time. Is this a good time? Yes Symptoms What Chronic Disease(s) does the patient have: CKD Do you check your blood pressures at home? Yes, Enter readings: 134/76 Do you have new or worse shortness of breath with activity? Yes a little bit more than usual for the past few weeks. Some days are worse than others. Wants to discuss with PCP at NOV. Does not want to discuss with PCP sooner or want a sooner OV with PCP Do you feel like you are dehydrated for any reason, including not being able to eat or drink normally, or having less urine/much darker urine than normal for you? No Do you check your daily weight at home? No Are you having any other symptoms that your PCP needs to know about? No Symptoms: Symptom Escalation MICHELLE Education Ordered -: No The patient required an escalation for symptom(s)? No Medications Do you have any questions about taking your medication or which medications you should be on? No Do you need any medication refills at this time, including any of the medications you might take only when needed? No Social We would like to make sure you have what you need so that your basic needs are met- including your personal safety, food, housing, transportation and medications? Would you like to speak with a social work team foreman to help give you support for any of these needs? No It can be normal to feel anxious or down during a time like this. Would you like to talk to a mental health professional about how you have been feeling? No Closing Thank you for taking the time to talk with me today. We want to work with you to ensure that we are keeping your medical condition(s) well-controlled and to keep you healthy and out of the doctor's office or hospital. It?s also not too late for me to sign you up for automated weekly questionnaires through [employer]. This is an easy way for us to stay connected each week. Are you interested? No, I understand. We can always sign you up in the future if you change your mind. Just as a reminder, will continue to call you every other week to check in on your health. Our calls should take 10-15 minutes or less. Remember, if you have concerns in between our calls, please call your PCP's office right away. Thank you. Enter next patient outreach date for two weeks on the same day of the week as today in the Track Pt Outreach and End outreach. Allergies As of Date: 11/28/2022 Noted Allergy Reaction NSAIDS (NON-STEROIDAL ANTI-INFLAM*11/07/2021 14 - Other: See Comments Comments: Pt. states has cautioned her not to use due to kidney disease [id number] REDUCTASE INHIBIT*07/05/2020 17 - Myalgia Date Reviewed: 11/03/2022 Reviewed by: Bradley Loo LPN - Fully Assessed Reason for Visit: Community Monitoring Outreach [Other] Cmt: CDM telephonic outreach Prescriptions as of 11/28/2022 - levothyroxine (LEVOXYL) 100 mcg tablet Take 1 tablet by mouth once daily. Take on empty stomach. For Thyroid. - metoprolol succinate ER (TOPROL XL) 25 mg 24 hr tablet Take 1 tablet by mouth once daily. - ezetimibe (ZETIA) 10 mg tablet Take 1 tablet by mouth once daily. - hydroCHLOROthiazide (HYDRODIURIL, ESIDRIX) 25 mg tablet Take 1 tablet by mouth once daily. - benzonatate (TESSALON PERLES) 100 mg capsule Take 1 capsule by mouth three times daily as needed for cough. - lisinopril (ZESTRIL, PRINIVIL) 40 mg tablet Take 1 tablet by mouth once daily. - apixaban (ELIQUIS) 5 mg tab(s) Take 1 tablet by mouth twice daily. - CPAP Initiate Auto PAP @ 5-20 cm of water with humidification. Mask (per patient preference) optional chin strap (if indicated) , filters, tubing, humidifier and lifetime supplies. - acetaminophen (TYLENOL) 500 mg tablet Take 2 tablets by mouth every 8 hours as needed for pain. - aspirin, enteric coated (ECOTRIN LOW STRENGTH) 81 mg EC tablet Take 1 tablet by mouth twice daily. - multivitamin tablet Take 1 tablet by mouth once daily. Facility-Administered Medications as of 11/28/2022 - perflutren lipid microspheres 1.3 mL in NaCl (PF) 0.9% 10 mL injection (DEFINITY) - sodium chloride 0.9 % (flush) 10 mL (BD POSIFLUSH) Problem List As Of Date 11/28/2022 Noted Resolved MIXED HYPERLIPIDEMIA [E78.2] 07/19/2008 Urticaria [L50.9] 12/12/2009 05/ (more content not included)...[facility]03-23-2023 NoteHNO ID: [id number] Author: Radha Martines RN Service: ? Author Type: Registered Nurse Type: Progress Notes Filed: 11/27/2022 3:00 PM Note Text: [facility] TELEPHONIC OUTREACH Provider Action/FYI: Contact made with patient: No - Left message Hyun my name is Radha Martines RN your Field Operations Manager [facility] the [facility] I am calling today for your bi-weekly check in. I am sorry I missed your call. I will reach out to you again tomorrow. (if the third call I will reach out to you again next week) Enter next patient outreach date for the following business day using the Track Pt Outreach. End outreach.[facility]03-23-2023 History of Present illness Narrative* Radha Martines RN - 11/27/2022 2:57 PM EDT [facility] TELEPHONIC OUTREACH Provider Action/FYI: Contact made with patient: No - Left message Hyun my name is Radha Martines RN your Field Operations Manager from the [facility] I am calling today for your bi-weekly check in. I am sorry I missed your call. I will reach out to you again tomorrow. (if the third call I will reach out to you again next week) Enter next patient outreach date forthe following using the Track Pt Outreach. End outreach. documented in this encounterWay[facility]-2023 NotePatient Outreach ([facility]) GONZALEZDAYANARA ([id number]) 1940 F S Date Time Provider Department 11/27/22 RADHA MARTINES During your visit today, we recorded the following information about you: Radha Martines RN 11/27/2022 3:00 PM Signed [facility]IGHT [facility] TELEPHONIC OUTREACH Provider Action/FYI: Contact made with patient: No - Left message Hello my name is Radha Martines RN your Field Operations Manager from the [facility] I am calling today for your bi-weekly check in. I am sorry I missed your call. I will reach out to you again tomorrow. (if the third call I will reach out to you again next week) Enter next patient outreach date for the following using the Track Pt Outreach. End outreach. Allergies As of Date: 11/27/2022 Noted Allergy Reaction NSAIDS (NON-STEROIDAL ANTI-INFLAM*11/07/2021 14 - Other: See Comments Comments: Pt. states has cautioned her not to use due to kidney disease [id number] REDUCTASE INHIBIT*07/05/2020 17 - Myalgia Date Reviewed: 11/03/2022 Reviewed by: Bradley Loo LPN - Fully Assessed Reason for Visit: Community Monitoring Outreach [Other] Cmt: [facility] telephonic outreach Prescriptions as of 11/27/2022 - levothyroxine (LEVOXYL) 100 mcg tablet Take 1 tablet by mouth once daily. Take on empty stomach. For Thyroid. - metoprolol succinate ER (TOPROL XL) 25 mg 24 hr tablet Take 1 tablet by mouth once daily. - ezetimibe (ZETIA) 10 mg tablet Take 1 tablet by mouth once daily. - hydroCHLOROthiazide (HYDRODIURIL, ESIDRIX) 25 mg tablet Take 1 tablet by mouth once daily. - benzonatate (TESSALON PERLES) 100 mg capsule Take 1 capsule by mouth three times daily as needed for cough. - lisinopril (ZESTRIL, PRINIVIL) 40 mg tablet Take 1 tablet by mouth once daily. - apixaban (ELIQUIS) 5 mg tab(s) Take 1 tablet by mouth twice daily. - CPAP Initiate Auto PAP @ 5-20 cm of water with humidification. Mask (per patient preference) optional chin strap (if indicated) , filters, tubing, humidifier and lifetime supplies. - acetaminophen (TYLENOL) 500 mg tablet Take 2 tablets by mouth every 8 hours as needed for pain. - aspirin, enteric coated (ECOTRIN LOW STRENGTH) 81 mg EC tablet Take 1 tablet by mouth twice daily. - multivitamin tablet Take 1 tablet by mouth once daily. 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 Neoplasm of uncertain behavior of skin [D48.5] 06/27/2010 01/29/2012 Disturbance of Skin Sensation: tenderness//pain*06/27/2010 01/29/2012 Osteoarthritis [M19.90] 03/31/2011 Essential hypertension, benign [I10] 08/03/2012 Dizziness and giddiness [R42] 09/30/2013 05/26/2016 Morbid obesity due to excess calories (HCC) [E6*06/06/2016 Lung nodule [R91.1] 06/09/2016 CKD (chronic kidney disease) stage 3, GFR 30-59*11/23/2018 Lightheaded [R42] 01/05/2020 Atrial tachycardia (HCC) [I47.1] 11/05/2020 Ventricular tachycardia, nonsustained (HCC) [I4*11/05/2020 Chronic right-sided low back pain with right-si*11/16/2020 Primary osteoarthritis of right knee [M17.11] 07/10/2021 Former smoker [Z87.891] 07/10/2021 History of total hip arthroplasty, left [Z96.64*07/17/2021 Syncope, cardiogenic [R55] 12/16/2021 Palpitations [R00.2] 12/16/2021 Obesity, Class III, BMI >= 40 [E66.01] 01/27/2022 Atrial fibrillation, persistent (HCC) [I48.19] 01/27/2022 01/27/2022 Dyspnea on exertion [R06.09] 02/14/2022 Coronary artery disease involving [place] dubose*02/20/2022 Statin intolerance [Z78.9] 06/02/2022 Paroxysmal atrial fibrillation (HCC) [I48.0] 06/02/2022 Hypothyroidism, acquired [E03.9] 09/03/2022 Encounter Status:Closed by RADHA MARTINES on 11/27/22[facility] 11-14-2022 Miscellaneous Notes* Telephone Encounter - Jessica Piedra RN - 11/14/2022 2:06 PM EST Patient reports she went to [facility] ER on 11/12 as advised for left foot/leg swelling, tenderness and stiffness as well as pain in feet when walking. Patient would like Dr. Sharif to know that she was evaluated and discharged and was told she had peripheral neuropathy. No new medications were prescribed. Pt has appt with Dr. Sharif in December and states she will follow up then, unless condition worsens/changes. Jessica Piedra RN documented in this encounterWay[facility]03-[facility]-2023 NotePatient Outreach (BOAZ) DAYANARA GONZALEZ ([id number]) 1940 F F[place] Date Time Provider Department 11/13/22 RADHA MARTINES During your visit today, we recorded the following information about you: Radha Martines RN 11/13/2022 9:48 AM Signed [facility]IGHT [facility] TELEPHONIC OUTREACH Provider Action/FYI: Contact made with patient: No - Left message Hyun my name is Radha Martines, RN your Field Operations Manager from the [facility] I am calling today for your bi-weekly check in. I am sorry I missed your call. I will reach out to you again tomorrow. (if the third call I will reach out to you again next week) Enter next patient outreach date for the following day using the Track Pt Outreach. End outreach. Allergies As of Date: 11/13/2022 Noted Allergy Reaction NSAIDS (NON-STEROIDAL ANTI-INFLAM*11/07/2021 14 - Other: See Comments Comments: Pt. states has cautioned her not to use due to kidney disease [id number]-OHF-[id number] REDUCTASE INHIBIT*07/05/2020 17 - Myalgia Date Reviewed: 11/03/2022 Reviewed by: Bradley Loo LPN - Fully Assessed Reason for Visit: Community Monitoring Outreach [Other] Cmt: [facility] telephonic outreach Prescriptions as of 11/13/2022 - levothyroxine (LEVOXYL) 100 mcg tablet Take 1 tablet by mouth once daily. Take on empty stomach. For Thyroid. - metoprolol succinate ER (TOPROL XL) 25 mg 24 hr tablet Take 1 tablet by mouth once daily. - ezetimibe (ZETIA) 10 mg tablet Take 1 tablet by mouth once daily. - hydroCHLOROthiazide (HYDRODIURIL, ESIDRIX) 25 mg tablet Take 1 tablet by mouth once daily. - benzonatate (TESSALON PERLES) 100 mg capsule Take 1 capsule by mouth three times daily as needed for cough. - lisinopril (ZESTRIL, PRINIVIL) 40 mg tablet Take 1 tablet by mouth once daily. - apixaban (ELIQUIS) 5 mg tab(s) Take 1 tablet by mouth twice daily. - CPAP Initiate Auto PAP @ 5-20 cm of water with humidification. Mask (per patient preference) optional chin strap (if indicated) , filters, tubing, humidifier and lifetime supplies. - acetaminophen (TYLENOL) 500 mg tablet Take 2 tablets by mouth every 8 hours as needed for pain. - aspirin, enteric coated (ECOTRIN LOW STRENGTH) 81 mg EC tablet Take 1 tablet by mouth twice daily. - multivitamin tablet Take 1 tablet by mouth once daily. 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 Neoplasm of uncertain behavior of skin [D48.5] 06/27/2010 01/29/2012 Disturbance of Skin Sensation: tenderness//pain*06/27/2010 01/29/2012 Osteoarthritis [M19.90] 03/31/2011 Essential hypertension, benign [I10] 08/03/2012 Dizziness and giddiness [R42] 09/30/2013 05/26/2016 Morbid obesity due to excess calories (HCC) [E6*06/06/2016 Lung nodule [R91.1] 06/09/2016 CKD (chronic kidney disease) stage 3, GFR 30-59*11/23/2018 Lightheaded [R42] 01/05/2020 Atrial tachycardia (HCC) [I47.1] 11/05/2020 Ventricular tachycardia, nonsustained (HCC) [I4*11/05/2020 Chronic right-sided low back pain with right-si*11/16/2020 Primary osteoarthritis of right knee [M17.11] 07/10/2021 Former smoker [Z87.891] 07/10/2021 History of total hip arthroplasty, left [Z96.64*07/17/2021 Syncope, cardiogenic [R55] 12/16/2021 Palpitations [R00.2] 12/16/2021 Obesity, Class III, BMI >= 40 [E66.01] 01/27/2022 Atrial fibrillation, persistent (HCC) [I48.19] 01/27/2022 01/27/2022 Dyspnea on exertion [R06.09] 02/14/2022 Coronary artery disease involving [place] dubose*02/20/2022 Statin intolerance [Z78.9] 06/02/2022 Paroxysmal atrial fibrillation (HCC) [I48.0] 06/02/2022 Hypothyroidism, acquired [E03.9] 09/03/2022 Encounter Status:Closed by RADHA MARTINES on 11/13/22[facility] 11-13-2022 NoteHNO ID: [id number] Author: Radha Martines RN Service: ? Author Type: Registered Nurse Type: Progress Notes Filed: 11/13/2022 9:48 AM Note Text: [facility] TELEPHONIC OUTREACH Provider Action/FYI: Contact made with patient: No - Left message Thelmapaolo my name is Radha Martines RN your Field Operations Manager from the [facility] I am calling today for your bi-weekly check in. I am sorry I missed your call. I will reach out to you again tomorrow. (if the third call I will reach out to you again next week) Enter next patient outreach date for the following business day using the Track Pt Outreach. End outreach.[facility]03-09-2023 History of Present illness Narrative* Radha Martines RN - 11/13/2022 9:46 AM EST [facility] TELEPHONIC OUTREACH Provider Action/FYI: Contact made with patient: No - Left message Hyun my name is Radha Martines RN your Field Operations Manager from the [facility] I am calling today for your bi-weekly check in. I am sorry I missed your call. I will reach out to you again tomorrow. (if the third call I will reach out to you again next week) Enter next patient outreach date forthe following business day using the Track Pt Outreach. End outreach. documented in this encounter[facility]23 Miscellaneous Notes* Telephone Encounter - Bradley Loo LPN - 11/12/2022 4:09 PM EST Pt notified. She is agreeable to going to ER. She states she will likely go to [facility]. Bradley Loo LPN * Telephone Encounter - Norm Sharif MD - 11/12/2022 3:34 PM EST To Er . What was tested was just to check pulses. * Telephone Encounter - Jessica Piedra RN - 11/12/2022 3:23 PM EST Patient returned call and results below were given. Pt would like Dr. Sharif to know that since Tuesday 11/07, her left foot, left toes, left ankle and lower left leg have been swollen. -States when she has had foot swelling in past, it always went down at night. Pt reports this has not went down in left leg/foot. -Reports if she presses on her left lower leg it makes an indent from her finger -Left foot/leg is very tender and stiff . -Reports both of her feet hurt when walking and it is getting harder to walk -Reports right foot with no swelling at this time -continued purplish discoloration of the bilateral toes and heels, but also some redness to sides of left foot and around toes -both feet continue with burning feeling almost all the time -left and right feet and legs same temperature, on the cooler side Please advise patient. Thank you. * Telephone Encounter - Nona Webb LPN - 11/12/2022 1:00 PM EST Left message for patient to call office. * Telephone Encounter - Norm Sharif MD - 11/12/2022 12:47 PM EST Circulation test is overall ok. There is some slight decrease in the right foot toes but that can even be the blood vessels getting smaller due to cold air. documented in this encounterWay[facility]-2023 NotePatient Outreach ([facility]) JINGDAYANARA M ([id number]) 1940 F FNS Date Time Provider Department 11/12/22 RADHA MARTINES During your visit today, we recorded the following information about you: Radha Martines RN 11/12/2022 10:03 AM Signed [facility] TELEPHONIC OUTREACH Provider Action/I: Agrees to call later today or tomorrow Contact made with patient: Yes Patient identified by name and . Discussed care with patient It?s nice talking to you again. As a reminder, this is our bi-weekly check-in where I will be asking you questions about your health. This will only take a few minutes of your time. Is this a good time? No - today is not a good time for the patient. Agree on a call back time and connect with the patient then. If applicable, update the next patient outreach date using the Track Pt Outreach. End outreach Allergies As of Date: 11/12/2022 Noted Allergy Reaction NSAIDS (NON-STEROIDAL ANTI-INFLAM*11/07/2021 14 - Other: See Comments Comments: Pt. states has cautioned her not to use due to kidney disease [id number] REDUCTASE INHIBIT*07/05/2020 17 - Myalgia Date Reviewed: 11/03/2022 Reviewed by: Bradley Loo LPN - Fully Assessed Reason for Visit: Community Monitoring Outreach [Other] Cmt: [facility] telephonic outreach Prescriptions as of 11/12/2022 - levothyroxine (LEVOXYL) 100 mcg tablet Take 1 tablet by mouth once daily. Take on empty stomach. For Thyroid. - metoprolol succinate ER (TOPROL XL) 25 mg 24 hr tablet Take 1 tablet by mouth once daily. - ezetimibe (ZETIA) 10 mg tablet Take 1 tablet by mouth once daily. - hydroCHLOROthiazide (HYDRODIURIL, ESIDRIX) 25 mg tablet Take 1 tablet by mouth once daily. - benzonatate (TESSALON PERLES) 100 mg capsule Take 1 capsule by mouth three times daily as needed for cough. - lisinopril (ZESTRIL, PRINIVIL) 40 mg tablet Take 1 tablet by mouth once daily. - apixaban (ELIQUIS) 5 mg tab(s) Take 1 tablet by mouth twice daily. - CPAP Initiate Auto PAP @ 5-20 cm of water with humidification. Mask (per patient preference) optional chin strap (if indicated) , filters, tubing, humidifier and lifetime supplies. - acetaminophen (TYLENOL) 500 mg tablet Take 2 tablets by mouth every 8 hours as needed for pain. - aspirin, enteric coated (ECOTRIN LOW STRENGTH) 81 mg EC tablet Take 1 tablet by mouth twice daily. - multivitamin tablet Take 1 tablet by mouth once daily. 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 Neoplasm of uncertain behavior of skin [D48.5] 06/27/2010 01/29/2012 Disturbance of Skin Sensation: tenderness//pain*06/27/2010 01/29/2012 Osteoarthritis [M19.90] 03/31/2011 Essential hypertension, benign [I10] 08/03/2012 Dizziness and giddiness [R42] 09/30/2013 05/26/2016 Morbid obesity due to excess calories (HCC) [E6*06/06/2016 Lung nodule [R91.1] 06/09/2016 CKD (chronic kidney disease) stage 3, GFR 30-59*11/23/2018 Lightheaded [R42] 01/05/2020 Atrial tachycardia (HCC) [I47.1] 11/05/2020 Ventricular tachycardia, nonsustained (HCC) [I4*11/05/2020 Chronic right-sided low back pain with right-si*11/16/2020 Primary osteoarthritis of right knee [M17.11] 07/10/2021 Former smoker [Z87.891] 07/10/2021 History of total hip arthroplasty, left [Z96.64*07/17/2021 Syncope, cardiogenic [R55] 12/16/2021 Palpitations [R00.2] 12/16/2021 Obesity, Class III, BMI >= 40 [E66.01] 01/27/2022 Atrial fibrillation, persistent (HCC) [I48.19] 01/27/2022 01/27/2022 Dyspnea on exertion [R06.09] 02/14/2022 Coronary artery disease involving [place] dubose*02/20/2022 Statin intolerance [Z78.9] 06/02/2022 Paroxysmal atrial fibrillation (HCC) [I48.0] 06/02/2022 Hypothyroidism, acquired [E03.9] 09/03/2022 Encounter Status:Closed by RADHA MARTINES on 11/12/22[facility] 11-12-2022 NoteHNO ID: [id number] Author: Radha Martines RN Service: ? Author Type: Registered Nurse Type: Progress Notes Filed: 11/12/2022 10:03 AM Note Text: [facility] TELEPHONIC OUTREACH Provider Action/FYI: Agrees to call later today or tomorrow Contact made with patient: Yes Patient identified by name and . Discussed care with patient It?s nice talking to you again. As a reminder, this is our bi-weekly check-in where I will be asking you questions about your health. This will only take a few minutes of your time. Is this a good time? No - today is not a good time for the patient. Agree on a call back time and connect with the patient then. If applicable, update the next patient outreach date using the Track Pt Outreach. End outreachSt[facility] History of Present illness Narrative* Radha Martines RN - 11/12/2022 10:00 AM EST [facility] TELEPHONIC OUTREACH Provider Action/FYI: Agrees to call later today or tomorrow Contact made with patient: Yes Patient identified by name and . Discussed care with patient It s nice talking to you again. As a reminder, this is our bi-weekly check-in where I will be asking you questions about your health. This will only take a few minutes of your time. Is this a good time? No - today is not a good time for the patient. Agree on a call back time and connect with the patient then. If applicable, update the next patient outreach date using the Track Pt Outreach. End outreach documented in this encounterWay[facility]03-07-2023 NoteHNO ID: [id number] Author: Radha Martines RN Service: ? Author Type: Registered Nurse Type: Progress Notes Filed: 11/11/2022 3:32 PM Note Text: KASHIF [facility] TELEPHONIC OUTREACH Provider Action/FYI: Busy x 3 attempts Contact made with patient: No - Unable to leave message Entered next patient outreach date for the following business day, if third call please enter next outreach date for one week in the Track Pt. Outreach - End [facility]reachSt[facility] History of Present illness Narrative* Radha Martines RN - 11/11/2022 3:28 PM EST [facility] TELEPHONIC OUTREACH Provider Action/FYI: Busy x 3 attempts Contact made with patient: No - Unable to leave message Entered next patient outreach date for the following business day, if third call please enter next outreach date for one week in the Track Pt. Outreach - End Outreach documented in this encounterWayne [facility]03-[facility]-2023 NotePatient Outreach ([facility]) DAYANARA GONZALEZ ([id number]) 1940 F FNS Date Time Provider Department 11/11/22 RADHA MARTINES During your visit today, we recorded the following information about you: Radha Martines RN 11/11/2022 3:32 PM Signed [facility] TELEPHONIC OUTREACH Provider Action/FYI: Busy x 3 attempts Contact made with patient: No - Unable to leave message Entered next patient outreach date for the following day, if third call please enter next outreach date for one week in the Track Pt. Outreach - End Outreach Allergies As of Date: 11/11/2022 Noted Allergy Reaction NSAIDS (NON-STEROIDAL ANTI-INFLAM*11/07/2021 14 - Other: See Comments Comments: Pt. states has cautioned her not to use due to kidney disease [id number]-IET-[id number] REDUCTASE INHIBIT*07/05/2020 17 - Myalgia Date Reviewed: 11/03/2022 Reviewed by: Bradley Loo LPN - Fully Assessed Reason for Visit: Community Monitoring Outreach [Other] Cmt: [facility] telephonic outreach Prescriptions as of 11/11/2022 - levothyroxine (LEVOXYL) 100 mcg tablet Take 1 tablet by mouth once daily. Take on empty stomach. For Thyroid. - metoprolol succinate ER (TOPROL XL) 25 mg 24 hr tablet Take 1 tablet by mouth once daily. - ezetimibe (ZETIA) 10 mg tablet Take 1 tablet by mouth once daily. - hydroCHLOROthiazide (HYDRODIURIL, ESIDRIX) 25 mg tablet Take 1 tablet by mouth once daily. - benzonatate (TESSALON PERLES) 100 mg capsule Take 1 capsule by mouth three times daily as needed for cough. - lisinopril (ZESTRIL, PRINIVIL) 40 mg tablet Take 1 tablet by mouth once daily. - apixaban (ELIQUIS) 5 mg tab(s) Take 1 tablet by mouth twice daily. - CPAP Initiate Auto PAP @ 5-20 cm of water with humidification. Mask (per patient preference) optional chin strap (if indicated) , filters, tubing, humidifier and lifetime supplies. - acetaminophen (TYLENOL) 500 mg tablet Take 2 tablets by mouth every 8 hours as needed for pain. - aspirin, enteric coated (ECOTRIN LOW STRENGTH) 81 mg EC tablet Take 1 tablet by mouth twice daily. - multivitamin tablet Take 1 tablet by mouth once daily. 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 Neoplasm of uncertain behavior of skin [D48.5] 06/27/2010 01/29/2012 Disturbance of Skin Sensation: tenderness//pain*06/27/2010 01/29/2012 Osteoarthritis [M19.90] 03/31/2011 Essential hypertension, benign [I10] 08/03/2012 Dizziness and giddiness [R42] 09/30/2013 05/26/2016 Morbid obesity due to excess calories (HCC) [E6*06/06/2016 Lung nodule [R91.1] 06/09/2016 CKD (chronic kidney disease) stage 3, GFR 30-59*11/23/2018 Lightheaded [R42] 01/05/2020 Atrial tachycardia (HCC) [I47.1] 11/05/2020 Ventricular tachycardia, nonsustained (HCC) [I4*11/05/2020 Chronic right-sided low back pain with right-si*11/16/2020 Primary osteoarthritis of right knee [M17.11] 07/10/2021 Former smoker [Z87.891] 07/10/2021 History of total hip arthroplasty, left [Z96.64*07/17/2021 Syncope, cardiogenic [R55] 12/16/2021 Palpitations [R00.2] 12/16/2021 Obesity, Class III, BMI >= 40 [E66.01] 01/27/2022 Atrial fibrillation, persistent (HCC) [I48.19] 01/27/2022 01/27/2022 Dyspnea on exertion [R06.09] 02/14/2022 Coronary artery disease involving [place]ose*02/20/2022 Statin intolerance [Z78.9] 06/02/2022 Paroxysmal atrial fibrillation (HCC) [I48.0] 06/02/2022 Hypothyroidism, acquired [E03.9] 09/03/2022 Encounter Status:Closed by RADHA MARTINES on 11/11/22[facility] 11-03-2022 NoteHNO ID: [id number] Author: Mary Taylor APRN.RN SURGERY Service: ? Author Type: Nurse Practitioner Type: Progress Notes Filed: 11/03/2022 1:29 PM Note Text: This is a 82 year old female who presents today with: Patient presents with: Recheck: BP check HISTORY OF PRESENT ILLNESS: Dayanara Gonzalez is a 82 year old female. Patient presents with: Recheck: BP check HTN: Patient is compliant with meds Yes Monitors bp at home: Yes. -- refers up and down. Higher in the morning (130-140 in the morning; 110 in the evening). Denies side effects: Yes. Chest pain: No. Dyspnea: chronic. Edema: a little. Palpitations: No. Syncope: No. Headache: No. Dizziness: a little -- anytime -- can be sitting/standing. Trying to drink water. Concerned because she gets some discoloration of her feet and heels. Will get some burning sensation. Worsens when dependent. PAST MEDICAL HISTORY: PAST MEDICAL HISTORY Diagnosis Date Diarrhea Generalized osteoarthrosis, unspecified site HTN (hypertension) Lung nodule repeat ct in spring, benign Other and unspecified hyperlipidemia Rectal bleeding PAST SURGICAL HISTORY Procedure Laterality Date COLONOSCOPY 08/26/2005 VJ - scattered tic EGD 08/26/2005 VJ - normal PAST SURGICAL HISTORY OF Right carpal tunnel on the right hand PAST SURGICAL HISTORY OF Right arthoscopy on the right knee PAST SURGICAL HISTORY OF Right 01/2016 ORIF right ankle, 2 small screws remain by Dr. Bedoya TOTAL HIP REPLACEMENT Left 07/17/2021 Left total hip arthroplasty TOTAL KNEE REPLACEMENT Right 12/25/2021 Right total knee replacement UNSPECIFIED ORAL SURGERY PROCEDURE, BY REPORT wisdom teeth removed. ALLERGIES Nsaids (Non-Steroidal Anti-Inflammatory Drug) and Fgnemyo-Rth-Bys Reductase Inhibitors MEDICATIONS Current Outpatient Medications Medication Sig levothyroxine (LEVOXYL) 100 mcg tablet Take 1 tablet by mouth once daily. Take on empty stomach. For Thyroid. metoprolol succinate ER (TOPROL XL) 25 mg 24 hr tablet Take 1 tablet by mouth once daily. ezetimibe (ZETIA) 10 mg tablet Take 1 tablet by mouth once daily. hydroCHLOROthiazide (HYDRODIURIL, ESIDRIX) 25 mg tablet Take 1 tablet by mouth once daily. benzonatate (TESSALON PERLES) 100 mg capsule Take 1 capsule by mouth three times daily as needed for cough. lisinopril (ZESTRIL, PRINIVIL) 40 mg tablet Take 1 tablet by mouth once daily. apixaban (ELIQUIS) 5 mg tab(s) Take 1 tablet by mouth twice daily. CPAP Initiate Auto PAP @ 5-20 cm of water with humidification. Mask (per patient preference) optional chin strap (if indicated) , filters, tubing, humidifier and lifetime supplies. acetaminophen (TYLENOL) 500 mg tablet Take 2 tablets by mouth every 8 hours as needed for pain. aspirin, enteric coated (ECOTRIN LOW STRENGTH) 81 mg EC tablet Take 1 tablet by mouth twice daily. (Patient taking differently: Take 81 mg by mouth twice daily. Once daily) multivitamin tablet Take 1 tablet by mouth once daily. Current Facility-Administered Medications Medication Dose Route Frequency perflutren lipid microspheres 1.3 mL in NaCl (PF) 0.9% 10 mL injection (DEFINITY) INTRAVENOUS DIRECTED PRN sodium chloride 0.9 % (flush) 10 mL (BD POSIFLUSH) 10 mL INTRAVENOUS DIRECTED PRN FAMILY HISTORY Problem Relation Age of Onset Heart Mother Hypertension Mother Hypertension Father Renal Disease Father Asthma No Family History COPD No Family History Social History Tobacco Use Smoking status: Former Packs/day: 0.50 Years: 20.00 Pack years: 10.00 Types: Cigarettes Quit date: 11/08/2000 Years since quittin.0 Smokeless tobacco: Never Tobacco comments: 2003 quit Vaping Use Vaping Use: Never used Substance Use Topics Alcohol use: No Drug use: No EXAM: BP 140/78 Pulse 60 Resp 18 SpO2 97% 134/78 PHYSICAL EXAM: General Appearance: Well appearing, alert, in no acute distress, well-hydrated, well nourished. Skin: Skin color, texture, turgor normal, no suspicious rashes or lesions. Head: Normocephalic, no masses, lesions, tenderness or abnormalities. Eyes: Anicteric sclera. Extraocular movements are intact. . Lungs: Lungs clear to auscultation. No wheezing, rhonchi, rales.. Heart: RRR without murmur, gallop, or rubs. No ectopy. Extremities: No deformities, edema, clubbing or cyanosis. Good capillary refill. +1 pedal pulses. Some purplish discoloration of the bilateral toes and heels. Heels cool to touch. Neurologic: Gait normal. ASSESSMENT/PLAN: 1. Essential hypertension, benign - ICD9: 401.1, ICD10: I10 (primary diagnosis) Improved control. Parameters of monitoring explained to patient. - Continue current medication(s) - Recommended regular aerobic exercise. - Recommend home blood pressure monitoring, to bring results in on next visit - Goal of BP <130/80 2. Discoloration of skin of foot - ICD9: 709.00, ICD10: L81.9 Will get GEORGINA. (more content not included)...[facility]02-15-[facility] Miscellaneous Notes* Telephone Encounter - Arleth Patel LPN - 10/22/2022 2:02 PM EST Phoned patient and went over results, notes from Martir ROSENTHAL with understanding. Patient aware rx sent to pharmacy. Patient wrote down notes so she could remember what she needs to do. She has appt with CEL[facility] end of Oct and appt with Dr Sharif mid December scheduled already. * Telephone Encounter - Julio Kerns PA-C - 10/22/2022 12:57 PM EST Please advise TSH still remains quite low. 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 Her last TSH was checked a little too early. It generally takes 2 months for thyroid to adjust. Nonetheless her thyroid levels remain significantly low Increase levothyroxine to 100 mcg daily on a 1 hour empty stomach. Recheck overnight fasting lab in 2 months. In the interim if she has any unusual symptoms or does not feel well she should notify us. She should have follow-up at some point in the next 2 to 3 months for recheck on blood pressure and weight. Telephone on 10/22/22 TSH BLD T4 FREE/FREE THYROX The following approved medication requests have been transmitted electronically. Requested Prescriptions Signed Prescriptions Disp Refills levothyroxine (LEVOXYL) 100 mcg tablet 30 tablet 2 Sig: Take 1 tablet by mouth once daily. Take on empty stomach. For Thyroid. Authorizing Provider: Julio KERNS PA-C documented in this encounterWayne [facility]02-13-2023 Miscellaneous Notes* Telephone Encounter - Sasha Walker Ma - 10/20/2022 5:05 PM EST Pt called and notified of message below from [employer] PROFESSION[employer], she verbalized understanding. Scheduled with on11/03/22 for 2 wk bp check. Sasha Walker Ma * Telephone Encounter - Mary Taylor APRN.CNP - 10/20/2022 4:57 PM EST It looks like cardiology just started her on metoprolol 2 weeks ago. Lets have her continue this and have her back for a BP check in 2 weeks. * Telephone Encounter - Christina Gibson LPN - 10/20/2022 3:37 PM EST Manual Readin/87 Pulse: 56 Home Cuff: 172/88 P: 58 BP Matt average: 150/75 P: 57 Repeat BP Check: 158/70 P56 #1 152/79 P55 #2 145/81 P60 #3 141/65 P58 #4 153/76 P56 #5 148/77 P56 #6 Reason for blood pressure check - Last BP elevated Patient is: Taking medication as prescribed Yes Took medication today Yes If no, date medication last taken N/A Experiencing side effects No BP was elevated at last appt 09/17/22. No BP medication changes were made at that time. Taking all medications as prescribed. Home readings have ranged 121-170/78-97. Denies any chest pain, unusual shortness of breath, or dizziness. Has been having daily headaches; not treating with anything. Drinksdecaf. Past personal history of tobacco use; no current exposure. Alert and oriented. Pt has been identified by name and birthdate: Yes Allergies reviewed: Yes Latex allergy: no. Medication - prescribed and OTC reviewed and updated: Yes Do you need any prescription refills prior to your next visit: No Health Maintenance: Reviewed and not up to date and provider notified Patient advised that she would be contacted after review by Dr mutton puncher. Christina Gibson LPN documented in this encounterWayne [facility]02-13-2023 History of Present illness Narrative* Christina Gibson LPN - 10/20/2022 3:35 PM EST Manual Readin/87 Pulse: 56 Home Cuff: 172/88 P: 58 BP Matt average: 150/75 P: 57 Repeat BP Check: 158/70 P56 #1 152/79 P55 #2 145/81 P60 #3 141/65 P58 #4 153/76 P56 #5 148/77 P56 #6 Reason for blood pressure check - Last BP elevated Patient is: Taking medication as prescribed Yes Took medication today Yes If no, date medication last taken N/A Experiencing side effects No BP was elevated at last appt 09/17/22. No BP medication changes were made at that time. Taking all medications as prescribed. Home readings have ranged 121-170/78-97. Denies any chest pain, unusual shortness of breath, or dizziness. Has been having daily headaches; not treating with anything. Drinksdecaf. Past personal history of tobacco use; no current exposure. Alert and oriented. Pt has been identified by name and birthdate: Yes Allergies reviewed: Yes Latex allergy: no. Medication - prescribed and OTC reviewed and updated: Yes Do you need any prescription refills prior to your next visit: No Health Maintenance: Reviewed and not up to date and provider notified Patient advised that she would be contacted after review by Dr mutton puncher. Christina Gibson LPN documented in this encounterWayne [facility]02-08-2023 History of Present illness Narrative* Radha Martines, RN - 10/15/2022 12:17 PM EST [facility] TELEPHONIC OUTREACH Provider Action/FYI: Mrs. Gonzalez states she has noticed a little increase in SOB when she goes from room to room in the past month. Denies coughing or wheezing Denies weight gain Declined assistance making OV with PCP Does not feels she needs to be seen Contact made with patient: Yes Patient identified by name and . Discussed care with patient It s nice talking to you again. As a reminder, this is our bi-weekly check-in where I will be asking you questions about your health. This will only take a few minutes of your time. Is this a good time? Yes Symptoms What Chronic Disease(s) does the patient have: CKD Do you check your blood pressures at home? No purchased one and will start checking Do you have new or worse shortness of breath with activity? Yes Do you feel like you are dehydrated for any reason, including not being able to eat or drink normally, or having less urine/much darker urine than normal for you? No Do you check your daily weight at home? Yes, Have you noticed a sudden gain in weight greater than three pounds in a day or three pounds in a week? No Are you having any other symptoms that your PCP needs to know about? No Symptoms: Symptom Escalation MICHELLE Education Ordered -: Yes The patient required an escalation for symptom(s)? No Medications Do you have any questions about taking your medication or which medications you should be on? No Do you need any medication refills at this time, including any of the medications you might take only when needed? No Social We would like to make sure you have what you need so that your basic needs are met- including your personal safety, food, housing, transportation and medications? Would you like to speak with a social work team foreman to help give you support for any of these needs? No It can be normal to feel anxious or down during a time like this. Would you like to talk to a mental health professional about how you have been feeling? No Closing Thank you for taking the time to talk with me today. We want to work with you to ensure that we arekeeping your medical condition(s) well-controlled and to keep you healthy and out of the doctor's office or hospital. It s also not too late for me to sign you up for automated weekly questionnaires through [employer]. This is an easy way for us to stay connected each week. Are you interested? No, I understand. We can always sign you up in the future if you change your mind. Just as a reminder, will continue to call you every other week to check in on your health. Our calls should take 10-15 minutes or less. Remember, if you have concerns in between our calls, please call your PCP's office right away. Thank you. Enter next patient outreach date for two weeks on the same day of the week as today in the Track PtOutreach and End outreach. [facility] Evaluation [facility]* Diagnosis Stage 3 chronic kidney disease, unspecified whether stage 3a or 3b CKD (HCC)- Primary documented in this encounter [facility] History of Present illness Narrative* Deven Chavez MD - 10/07/2022 7:04 PM EST HISTORY AND PHYSICAL Dayanaradillan Gonzalez 1940 REFERRING PHYSICIAN: Norm Sharif MD CHIEF COMPLAINT: Consult (ER follow up, rectal bleeding, diarrhea and colitis) HPI: The patient is a 82 year old female with a complaint of bloody diarrhea. The patient noted onset of bloody diarrhea and presented to the [facility] department on September 05, 2022 with those complaints. She had recent been placed on oral antibiotics for an elevated white blood cell countwas felt to be due to a an infection of unknown origin. The patient then developed crampy abdominaldiscomfort and bloody diarrhea. In the emergency department she had a CT scan of the abdomen and pelvis which demonstrated left-sided colitis. Her white blood cell count with is in normal range. She was felt to most likely have C. difficile colitis although stool for C. difficile was not obtained. The patient was given vancomycin. She noted resolution of her bloody stools and diarrhea. She was referred to me for some continued loose stools. Her previous colonoscopy was in 2013 was unremarkable. She was noting no colon difficulties before taking antibiotics and starting this bloody diarrhea.. The patient is being seen by me today at the request of Dr. Norm Sharif MD for my opinion and advice regarding recent episode of likely C. difficile colitis. PAST MEDICAL HISTORY Diagnosis Date Diarrhea Generalized osteoarthrosis, unspecified site HTN (hypertension) Lung nodule repeat ct in spring, benign Other and unspecified hyperlipidemia Rectal bleeding PAST SURGICAL HISTORY Procedure Laterality Date COLONOSCOPY 08/26/2005 VJ - scattered tic EGD 08/26/2005 VJ - normal PAST SURGICAL HISTORY OF Right carpal tunnel on the right hand PAST SURGICAL HISTORY OF Right arthoscopy on the right knee PAST SURGICAL HISTORY OF Right 01/2016 ORIF right ankle, 2 small screws remain by Dr. Bedoay TOTAL HIP REPLACEMENT Left 07/17/2021 Left total hip arthroplasty TOTAL KNEE REPLACEMENT Right 12/25/2021 Right total knee replacement UNSPECIFIED ORAL SURGERY PROCEDURE, BY REPORT wisdom teeth removed. Current Outpatient Medications Medication Sig ezetimibe (ZETIA) 10 mg tablet Take 1 tablet by mouth once daily. levothyroxine (SYNTHROID) 50 mcg tablet Take 1 tablet by mouth once daily. Take on empty stomach. For Thyroid. hydroCHLOROthiazide (HYDRODIURIL, ESIDRIX) 25 mg tablet Take 1 tablet by mouth once daily. benzonatate (TESSALON PERLES) 100 mg capsule Take 1 capsule by mouth three times daily as needed for cough. lisinopril (ZESTRIL, PRINIVIL) 40 mg tablet Take 1 tablet by mouth once daily. apixaban (ELIQUIS) 5 mg tab(s) Take 1 tablet by mouth twice daily. CPAP Initiate Auto PAP @ 5-20 cm of water with humidification. Mask (per patient preference) optional chin strap (if indicated) , filters, tubing, humidifier and lifetime supplies. acetaminophen (TYLENOL) 500 mg tablet Take 2 tablets by mouth every 8 hours as needed for pain. multivitamin tablet Take 1 tablet by mouth once daily. metoprolol succinate ER (TOPROL XL) 25 mg 24 hr tablet Take 1 tablet by mouth once daily. aspirin, enteric coated (ECOTRIN LOW STRENGTH) 81 mg EC tablet Take 1 tablet by mouth twice daily. (Patient taking differently: Take 81 mg by mouth twice daily. Once daily) Current Facility-Administered Medications Medication Dose Route Frequency perflutren lipid microspheres 1.3 mL in NaCl (PF) 0.9% 10 mL injection (DEFINITY) INTRAVENOUS DIRECTED PRN sodium chloride 0.9 % (flush) 10 mL (BD POSIFLUSH) 10 mL INTRAVENOUS DIRECTED PRN ALLERGIES: Nsaids (Non-Steroidal Anti-Inflammatory Drug) and Whunbbu-Yko-Yzi Reductase Inhibitors PERSONAL HISTORY: Social History Tobacco Use Smoking status: Former Packs/day: 0.50 Years: 20.00 Pack years: 10.00 Types: Cigarettes Quit date: 11/08/2000 Years since quittin.9 Smokeless tobacco: Never Tobacco comments: 2003 quit Vaping Use Vaping Use: Never used Substance Use Topics Alcohol use: No Drug use: No FAMILY HISTORY: FAMILY HISTORY Problem Relation Age of Onset Heart Mother Hypertension Mother Hypertension Father Renal Disease Father Asthma No Family History COPD No Family History REVIEW OF SYMPTOMS: The review of systems data was entered by the nurse and reviewed by wi Nursing Notes: Radha Velásquez RN 10/02/2022 12:55 PM Signed REVIEW OF SYSTEMS: General: The patient NOTES fatigue, denies weight loss, denies weight gain, denies feeling hot, anddenies feelings of cold. Eyes: The patient denies glaucoma, denies eye injury/surgery, wears glasses or contacts. Ear/Nose/Throat: The patient NOTES allergies, denies hayfever, denies ear infections, and denies bloody noses. Cardiovascular: The patient denies chest pain, denies heart disease, NOTES high blood pressure,denies cardiac stent, denies prior heart attack, denies irregular heart beat, NOTES high cholesterol, denies poor circulation, NOTES heart failure, other cardiac issues, denies claudication, denies cold feet, denies peripheral arterial stent. Respiratory: The patient denies tuberculosis, denies pneumonia, denies frequent cough, denies pulmonary embolism, denies shortness of breath, and denies coughing up blood. Gastrointestinal: The patient denies difficulty swallowing, denies acid reflux, denies ulcers, denies vomiting, denies jaundice/hepatitis, denies gallbladder problems, denies black or tarry stools, denies hemorrhoids, NOTES bleeding from rectum, denies diverticulitis, NOTES constipation, NOTES diarrhea, denies loss of stool control, and denies hernias. Kidney/Bladder: The patient denies kidney stones, denies urine infections, and denies bloody urine. Skin: The patient NOTES a history of skin cancer, denies bleeding/changing moles, and denies a history of skin rash. Neurologic: The patient denies a history of epilepsy/convulsions, denies headaches, denies head/spinal injuries, and denies stroke/TIA. Psychiatric: The patient denies psychiatric medications, denies depression, and denies voices, denies substance abuse. Endocrine: The patient NOTES thyroid disorders, denies diabetes, and denies hormonal problems. Hematologic: The patient NOTES a history of bruising, denies bleeding, and denies anemia, denies blood clots. Infections: The patient denies a history of measles and mumps, denies rheumatic fever, and denies sexually transmitted diseases. Musculoskeletal: The patient NOTES back pain/injury, denies back problems, NOTES sciatica, denies knee/foot trouble, NOTES arthritis, or denies gout. When was patient's last Mammogram screening? 06/01/2019 Last Colonoscopy: Radha Velásquez RN PHYSICAL EXAMINATION: General: The patient is 82 year old female, well nourished, well hydrated in no acute distress. Thepatient is oriented to time, place, and person. VITALS: Blood pressure 130/82, pulse 77, temperature 36.3 C (97.4 F), height 160 cm (5' 3 ), hpgewy820.8 kg (237 lb 9.6 oz), SpO2 97 %. HEENT: Normal cephalic, ataumatic, pupils are equally round, sclera are anicteric, mucous membranesare moist, oropharynx is clear. Neck has no masses, asymmetry or lymphadenopathy. Thyroid is unremarkable. Respiratory: Clear to auscultation and percussion. Normal respiratory excursion and pattern. Cardiac: Examination is regular rate and rhythm. Abdominal exam: Soft, nontender, with no palpable masses. No hepatosplenomegaly. No palpable hernias. Rectal exam: exam deferred Extremities: no clubbing, cyanosis or edema. No adenopathy. Other: LABORATORY VALUES: As Noted RADIOLOGIC STUDIES: As Noted Assessment IMPRESSION: Likely C. difficile colitis. PLAN: I actually asked for the CT scan images to be pushed and to evaluate labs to make sure C. difficile was not obtained. I reviewed the CT scan images on nothing other than the left-sided colitis.Also reviewed that C. difficile was not actually obtained but her history is good for C. difficile colitis. The patient states that she no longer has loose stools and if anything she has smaller pellet-like stools that are harder for her to pass. At this point in time I recommend fiber supplementation probiotics and noncaffeinated beverage to see if her stools returned to normal. If she is still having challenges in the next few weeks then I would ask her to recontact the office and that we would plan for colonoscopy but at this point in time the patient does not wish to undergo colonoscopy. Diagnoses: (K62.5) Rectal bleeding (primary encounter diagnosis) My findings have been communicated to Dr. Norm Sharif MD via shared medical record. This note will be forwarded to Dr. Norm Sharif MD. Return to Clinic: The patient is instructed to follow-up with me as needed. Deven Chavez MD [facility] Instructions* Patient Instructions* Reji Prakash MD - 10/06/2022 1:31 PM EST We are stopping the Amiodarone We are starting Metoprolol Succinate 25 mg once per day If you are getting dental work then hold the Eliquis for 48 hours prior to your procedure documented in [facility] History of Present illness Narrative* Reji Prakash MD - 10/06/2022 1:20 PM EST Images from the original note were not included. [facility] Cardiology ([address]) [address] [facility] [id number] OUTPATIENT VISIT DATE 10/06/2022 PRIMARY CARE PHYSICIAN: Norm Sharif [address] [place] [address] HISTORY OF PRESENT ILLNESS: Ms. Gonzalez is a 82 year old woman who underwent catheterization in February 2022 after she was found tohave ventricular tachycardia on outpatient monitoring. She had mild coronary artery disease. She had new onset atrial fibrillation in April 2022. She is also treated for hypertension and dyslipidemia. She presents the office for routine follow-up. Since her last visit, she tells me she has been doing well. She has occasional flutters in her chest which happen near the end of the day and are usually brief and self-limited. She has not had recurrent episodes of atrial fibrillation. She continuesto work 4 to 5 days a week. She has not had a decline in her functional capacity. She denies symptoms concerning for congestive heart failure including PND, orthopnea, or lower extremity edema. PAST MEDICAL HISTORY Diagnosis Date Diarrhea Generalized osteoarthrosis, unspecified site HTN (hypertension) Lung nodule repeat ct in spring, benign Other and unspecified hyperlipidemia Rectal bleeding PAST SURGICAL HISTORY Procedure Laterality Date COLONOSCOPY 08/26/2005 VJ - scattered tic EGD 08/26/2005 VJ - normal PAST SURGICAL HISTORY OF Right carpal tunnel on the right hand PAST SURGICAL HISTORY OF Right arthoscopy on the right knee PAST SURGICAL HISTORY OF Right 01/2016 ORIF right ankle, 2 small screws remain by Dr. Bedoya TOTAL HIP REPLACEMENT Left 07/17/2021 Left total hip arthroplasty TOTAL KNEE REPLACEMENT Right 12/25/2021 Right total knee replacement UNSPECIFIED ORAL SURGERY PROCEDURE, BY REPORT wisdom teeth removed. SOCIAL HISTORY Social History Tobacco Use Smoking status: Former Packs/day: 0.50 Years: 20.00 Pack years: 10.00 Types: Cigarettes Quit date: 11/08/2000 Years since quittin.9 Smokeless tobacco: Never Tobacco comments: 2003 quit Vaping Use Vaping Use: Never used Substance Use Topics Alcohol use: No Drug use: No FAMILY HISTORY Problem Relation Age of Onset Heart Mother Hypertension Mother Hypertension Father Renal Disease Father Asthma No Family History COPD No Family History ALLERGIES: ALLERGIES Allergen Reactions Nsaids (Non-Steroid* Other: See Comments Pt. states has cautioned her not to use due to kidney disease [id number]-Qmy-Xpv Red* Myalgia MEDICATIONS: ezetimibe (ZETIA) 10 mg tablet^Take 1 tablet by mouth once daily.^Disp: 90 tablet^Rfl: 3 levothyroxine (SYNTHROID) 50 mcg tablet^Take 1 tablet by mouth once daily. Take on empty stomach. For Thyroid.^Disp: 30 tablet^Rfl: 11 hydroCHLOROthiazide (HYDRODIURIL, ESIDRIX) 25 mg tablet^Take 1 tablet by mouth once daily.^Disp: 90tablet^Rfl: 1 benzonatate (TESSALON PERLES) 100 mg capsule^Take 1 capsule by mouth three times daily as needed for cough.^Disp: 30 capsule^Rfl: 0 lisinopril (ZESTRIL, PRINIVIL) 40 mg tablet^Take 1 tablet by mouth once daily.^Disp: 90 tablet^Rfl:3 apixaban (ELIQUIS) 5 mg tab(s)^Take 1 tablet by mouth twice daily.^Disp: 180 tablet^Rfl: 3 CPAP^Initiate Auto PAP @ 5-20 cm of water with humidification. Mask (per patient preference) optional chin strap (if indicated) , filters, tubing, humidifier and lifetime supplies.^Disp: 1 Each^Rfl: 0 acetaminophen (TYLENOL) 500 mg tablet^Take 2 tablets by mouth every 8 hours as needed for pain.^Disp: 90 tablet^Rfl: 0 aspirin, enteric coated (ECOTRIN LOW STRENGTH) 81 mg EC tablet^Take 1 tablet by mouth twice daily.^Disp: 60 tablet^Rfl: 0 (Patient taking differently: Take 81 mg by mouth twice daily. Once daily) multivitamin tablet^Take 1 tablet by mouth once daily.^Disp: ^Rfl: metoprolol succinate ER (TOPROL XL) 25 mg 24 hr tablet^Take 1 tablet by mouth once daily.^Disp: 90 tablet^Rfl: 3 REVIEW OF SYSTEMS: Review of Systems Constitutional: Negative for chills, fever, malaise/fatigue and weight loss. HENT: Negative for hearing loss and sore throat. Eyes: Negative for blurred vision and double vision. Respiratory: Positive for shortness of breath. Cardiovascular: Positive for palpitations. Gastrointestinal: Negative. Genitourinary: Negative for dysuria, frequency, hematuria and urgency. Musculoskeletal: Negative. Skin: Negative. Neurological: Negative for dizziness, seizures, loss of consciousness, weakness and headaches. Endo/Heme/Allergies: Negative for environmental allergies. Does not bruise/bleed easily. Psychiatric/Behavioral: Negative for depression. PHYSICAL EXAMINATION: BP 152/76[Dr. Prakash notified[ Pulse 78 Resp 20 Ht 5' 3 (1.60m) Wt 238 lb (108.0kg) SpO2 97% BMI 42.17 kg/(m^2). Repeat blood pressure right arm: 132/82 mmHg General: Pleasant woman sitting appears comfortable no apparent distress. She is alert and orientedx3 HEENT: Carotid upstrokes are brisk without bruits no JVD appreciated. Pulmonary: Lungs are clear no rales, wheezes, rhonchi Cardiovascular: Normal S1, S2 with regular rate and rhythm. No murmurs, rubs, or gallops Extremities: Warm, well-perfused, no lower extremity edema. Distal pulses are 2- 3+ and symmetric. CARDIOVASCULAR MEDICINE TESTING: Cardiac Catheterization 02/14/2022: Hemodynamics: LVEDP: 13 mmHg LV - AORTA: No gradient. Coronary Angiography: Left Main: Normal Left Anterior Descending: Large caliber vessel. The proximal vessel has mild diffuse <30% luminal narrowing. Circumflex: Large-caliber nondominant vessel with a large obtuse marginal branch which extends to the apical lateral wall. There is mild diffuse disease Right Coronary Artery: Large-caliber dominant vessel with mild diffuse disease Echocardiogram 04/18/2022 Left Ventricle Normal LV size. Apical false tendon noted. Left ventricular systolic function is normal. The estimated ejection fraction is 65 %. Stage 2 diastolic dysfunction. No regional wallmotion abnormalities noted. Right Ventricle Normal RV size. Normal systolic function. Atria The left atrium is mildly enlarged. The right atrium is mildly enlarged. No doppler evidence forASD. Mitral Valve There is mild mitral annular calcification. Normal mitral valve. Mild-Moderate (1-2+) mitral valveinsufficiency. Tricuspid Valve Normal tricuspid valve. Mild to moderate (1-2+) tricuspid valve insufficiency. Right ventricularsystolic pressure estimated to be 37 mmHg. Aortic Valve Trisinus/trileaflet aortic valve. Mild diffuse aortic valve thickening. Mild focal aortic valve calcification. Aortic valve sclerosis/mild aortic valve stenosis. Pulmonic Valve The pulmonic valve is not well visualized. Mild (1+) pulmonic valve insufficiency. Great Vessels Normal sized aortic root. Pericardium/Pleural No pericardial effusion. Echocardiogram 01/23/2022: - Technically difficult exam due to body habitus. - Exam indication: Palpitations - The left ventricle is normal in size. There is mild concentric left ventricular hypertrophy. Left ventricular systolic function is normal. EF = 65 5% (2D biplane) Indeterminate left ventricular diastolic dysfunction due to inconsistent or technically suboptimal data. - The right ventricle is normal in size. Right ventricular systolic function is normal. - The visualized aorta is borderline dilated with a maximal dimension of 3.8 cm. - Exam was compared with the prior CC echocardiographic exam performed on 04/16/2018, no significant change. Echocardiogram 04/16/2018 CONCLUSIONS: - Technically difficult exam due to body habitus. - Exam indication: Tachycardia - The left ventricle is normal in size. There is mild concentric left ventricular hypertrophy. Leftventricular systolic function is normal. EF = 62 5% (2D 4-ch.) Definity contrast used for endocardial border detection. Normal left ventricular diastolic function. - The right ventricle is normal in size. Right ventricular systolic function is normal. - There are no significant valvular abnormalities. - The patient has not had a prior CC echocardiographic exam for comparison. Carotid Ultrasound 04/16/2022: IMPRESSION RIGHT SIDE Internal carotid artery: 20-39% stenosis. Vertebral artery: Patent and antegrade flow noted. Innominate artery: Unable to visualize. LEFT SIDE Internal carotid artery: 20-39% stenosis. Vertebral artery: Patent and antegrade flow noted. Subclavian artery: Plaque visualized without evidence of hemodynamically significant stenosis. Zio Monitor 01/06-01/20/22: Patient had a min HR of 52 bpm, max HR of 218 bpm, and avg HR of 70 bpm. Predominant underlying rhythm was Sinus Rhythm. 2 Ventricular Tachycardia runs occurred, the run with the fastest interval lasting 9 beats with a max rate of 218 bpm, the longest lasting 10 beats with an avg rate of 184 bpm. 88 Supraventricular Tachycardia runsoccurred, the run with the fastest interval lasting 9 beats with a max rate of 200 bpm, the longestlasting 15.8 secs with an avg rate of 115 bpm. Isolated SVEs were rare (<1.0%), SVE Couplets were rare (<1.0%), and SVE Triplets were rare (<1.0%). Isolated VEs were rare (<1.0%), VE Couplets were rare (<1.0%), and no VE Triplets were present. IMPRESSION: Ms. Gonzalez is a 82 year old woman with mild coronary artery disease on catheterization February 2022, paroxysmal atrial fibrillation, hypertension, and dyslipidemia with severe statin intolerance who presents the office for follow-up. PLAN AND RECOMMENDATIONS: 1. Coronary artery disease involving [place] coronary artery of [place] heart without angina pectoris- ICD9: 414.01, ICD10: I25.10 (primary diagnosis) Mild coronary artery disease noted on prior catheterization. Continue current medical therapy and risk factor modification 2. 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 I recommended discontinuation of amiodarone. I have started her on Toprol 25 mg daily. May consider addition of flecainide to her medical regimen once she has undergone appropriate time. For washout of the amiodarone 3. Essential hypertension, benign - ICD9: 401.1, ICD10: I10 Well-controlled on current regimen 4. Dyspnea on exertion - ICD9: 786.09, ICD10: R06.09 5. Mixed hyperlipidemia - ICD9: 272.2, ICD10: E78.2 Difficult to control due to severe statin intolerance. Blood work from August 2022 was reviewed. 6. Statin intolerance - ICD9: 995.27, ICD10: Z78.9 7. Morbid obesity due to excess calories (HCC) - ICD9: 278.01, ICD10: E66.01 Reji Prakash MD documented in this [facility]23 Nurse Note* Radha Velásquez RN - 10/02/2022 12:54 PM EST REVIEW OF SYSTEMS: General: The patient NOTES fatigue, denies weight loss, denies weight gain, denies feeling hot, anddenies feelings of cold. Eyes: The patient denies glaucoma, denies eye injury/surgery, wears glasses or contacts. Ear/Nose/Throat: The patient NOTES allergies, denies hayfever, denies ear infections, and denies bloody noses. Cardiovascular: The patient denies chest pain, denies heart disease, NOTES high blood pressure,denies cardiac stent, denies prior heart attack, denies irregular heart beat, NOTES high cholesterol, denies poor circulation, NOTES heart failure, other cardiac issues, denies claudication, denies cold feet, denies peripheral arterial stent. Respiratory: The patient denies tuberculosis, denies pneumonia, denies frequent cough, denies pulmonary embolism, denies shortness of breath, and denies coughing up blood. Gastrointestinal: The patient denies difficulty swallowing, denies acid reflux, denies ulcers, denies vomiting, denies jaundice/hepatitis, denies gallbladder problems, denies black or tarry stools, denies hemorrhoids, NOTES bleeding from rectum, denies diverticulitis, NOTES constipation, NOTES diarrhea, denies loss of stool control, and denies hernias. Kidney/Bladder: The patient denies kidney stones, denies urine infections, and denies bloody urine. Skin: The patient NOTES a history of skin cancer, denies bleeding/changing moles, and denies a history of skin rash. Neurologic: The patient denies a history of epilepsy/convulsions, denies headaches, denies head/spinal injuries, and denies stroke/TIA. Psychiatric: The patient denies psychiatric medications, denies depression, and denies voices, denies substance abuse. Endocrine: The patient NOTES thyroid disorders, denies diabetes, and denies hormonal problems. Hematologic: The patient NOTES a history of bruising, denies bleeding, and denies anemia, denies blood clots. Infections: The patient denies a history of measles and mumps, denies rheumatic fever, and denies sexually transmitted diseases. Musculoskeletal: The patient NOTES back pain/injury, denies back problems, NOTES sciatica, denies knee/foot trouble, NOTES arthritis, or denies gout. When was patient's last Mammogram screening? 06/01/2019 Last Colonoscopy: Radha Velásquez RN documented in this [facility]23 Miscellaneous Notes* Telephone Encounter - Maame Cleary - 10/02/2022 10:56 AM EST Patient has been identified by name and date of : Yes Requested Prescriptions Pending Prescriptions Disp Refills ezetimibe (ZETIA) 10 mg tablet 90 tablet 3 Sig: Take 1 tablet by mouth once daily. RX INSTRUCTIONS: Patient aware RX will be sent to pharmacy. No need to notify patient. Maame Cleary documented in this encounterWay[facility]01-13-2023 Miscellaneous Notes* Telephone Encounter - Love Naidu MA - 09/19/2022 11:19 AM EST Patient notified of results. Love Naidu MA * Telephone Encounter - Norm Sharif MD - 09/19/2022 10:38 AM EST Repeat anemia labs are ok. Thyroid is improving but was done too early by lab. Please recheck in one month documented in this encounterWay[facility]23 History of Present illness Narrative* Norm Sharif MD - 09/17/2022 11:08 AM EST Patient presents with: Follow Up: 1 week follow up HPI: Patient presents today for office visit for follow up. 1 week follow up. No more diarrhea. Still having frequent BM's. Finished vanco. Had diarrhea and rectal bleeding. Er did an anoscopy and empirically started her on vanco for presumptive c diff without stool studies. Stool studies here were all negative. Ct showed colitis. No further bleeding. Still with frequent loose stools. 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 No abd pain. Drinking well. Occasionally lightheaded. Got follow up labs today. No fever. Just received CPAP on Thursday. Hasn't started using yet needs to get distilled water for it. Lab johanna thyroid a month early. Now on thyroid meds. Component Latest Ref Rng & Units 09/11/2022 Shigella spp./Enteroinvasive E.coli DNA Not Detected Not detected Campylobacter jejuni/coli DNA Not Detected Not detected Shiga toxin-producing gene(s) Not Detected Not detected Salmonella spp. DNA Not Detected Not detected Cryptosporidium Antigen by EIA Negative Negative for Cryptosporidium by EIA. Giardia Antigen by EIA Negative Negative for Giardia lamblia by EIA. Test Results Negative Negative for lactoferrin, which may indicate the absence of fecal white bloodcells Component Latest Ref Rng & Units 09/10/2022 WBC 3.70 - 11.00 k/uL 9.23 RBC 3.90 - 5.20 m/uL 3.77 (L) Hemoglobin 11.5 - 15.5 g/dL 11.4 (L) Hematocrit 36.0 - 46.0 % 35.6 (L) MCV 80.0 - 100.0 fL 94.4 MCH 26.0 - 34.0 pg 30.2 MCHC 30.5 - 36.0 g/dL 32.0 RDW-CV 11.5 - 15.0 % 13.5 Platelet Count 150 - 400 k/uL 209 MPV 9.0 - 12.7 fL 11.9 Neut% % 64.2 Abs Neut (ANC) 1.45 - 7.50 k/uL 5.92 Lymph% % 19.9 Abs Lymph 1.00 - 4.00 k/uL 1.84 [place]% % 11.8 Abs [place] <0.87 k/uL 1.09 (H) Eosin% % 2.9 Abs Eosin <0.46 k/uL 0.27 Baso% % 0.8 Abs Baso <0.11 k/uL 0.07 Immature Gran % % 0.4 IMMATURE GRANS (ABS) <0.10 k/uL 0.04 NRBC /100 WBC 0.0 Absolute nRBC <0.01 k/uL <0.01 DTYPE Auto Glucose 74 - 99 mg/dL 66 (L) BUN 7 - 21 mg/dL 16 Creatinine 0.58 - 0.96 mg/dL 1.09 (H) Sodium 136 - 144 mmol/L 141 Potassium 3.7 - 5.1 mmol/L 4.3 Chloride 97 - 105 mmol/L 103 CO2 22 - 30 mmol/L 24 Anion Gap 9 - 18 mmol/L 14 Calcium 8.5 - 10.2 mg/dL 9.3 eGFR >=60 mL/min/1.73m 51 (L) MEDICATIONS: Current Outpatient Medications Medication Sig levothyroxine (SYNTHROID) 50 mcg tablet Take 1 tablet by mouth once daily. Take on empty stomach. For Thyroid. hydroCHLOROthiazide (HYDRODIURIL, ESIDRIX) 25 mg tablet Take 1 tablet by mouth once daily. benzonatate (TESSALON PERLES) 100 mg capsule Take 1 capsule by mouth three times daily as needed for cough. lisinopril (ZESTRIL, PRINIVIL) 40 mg tablet Take 1 tablet by mouth once daily. apixaban (ELIQUIS) 5 mg tab(s) Take 1 tablet by mouth twice daily. amiodarone (PACERONE) 200 mg tablet Take 1 tablet by mouth once daily. CPAP Initiate Auto PAP @ 5-20 cm of water with humidification. Mask (per patient preference) optional chin strap (if indicated) , filters, tubing, humidifier and lifetime supplies. acetaminophen (TYLENOL) 500 mg tablet Take 2 tablets by mouth every 8 hours as needed for pain. aspirin, enteric coated (ECOTRIN LOW STRENGTH) 81 mg EC tablet Take 1 tablet by mouth twice daily. ezetimibe (ZETIA) 10 mg tablet Take 1 tablet by mouth once daily. multivitamin tablet Take 1 tablet by mouth once daily. Current Facility-Administered Medications Medication Dose Route Frequency perflutren lipid microspheres 1.3 mL in NaCl (PF) 0.9% 10 mL injection (DEFINITY) INTRAVENOUS DIRECTED PRN sodium chloride 0.9 % (flush) 10 mL (BD POSIFLUSH) 10 mL INTRAVENOUS DIRECTED PRN ALLERGIES: ALLERGIES Allergen Reactions Nsaids (Non-Steroid* Other: See Comments Pt. states has cautioned her not to use due to kidney disease Qafcgix-Akg-Wuk Red* Myalgia PAST MEDICAL HISTORY Diagnosis Date Generalized osteoarthrosis, unspecified site HTN (hypertension) Lung nodule repeat ct in spring, benign Other and unspecified hyperlipidemia PAST SURGICAL HISTORY Procedure Laterality Date COLONOSCOPY 08/26/2005 VJ - scattered tic EGD 08/26/2005 VJ - normal PAST SURGICAL HISTORY OF Right carpal tunnel on the right hand PAST SURGICAL HISTORY OF Right arthoscopy on the right knee PAST SURGICAL HISTORY OF Right 01/2016 ORIF right ankle, 2 small screws remain by Dr. Bedoya TOTAL HIP REPLACEMENT Left 07/17/2021 Left total hip arthroplasty TOTAL KNEE REPLACEMENT Right 12/25/2021 Right total knee replacement UNSPECIFIED ORAL SURGERY PROCEDURE, BY REPORT wisdom teeth removed. FAMILY HISTORY Problem Relation Age of Onset Heart Mother Hypertension Mother Hypertension Father Renal Disease Father Asthma No Family History COPD No Family History Social History Tobacco Use Smoking status: Former Packs/day: 0.50 Years: 20.00 Pack years: 10.00 Types: Cigarettes Quit date: 11/08/2000 Years since quittin.8 Smokeless tobacco: Never Tobacco comments: 2003 quit Vaping Use Vaping Use: Never used Substance Use Topics Alcohol use: No Drug use: No Reviewed current medications, allergies, past medical history, surgical history, family history andsocial history today. REVIEW OF SYSTEMS All other reviewed and negative other than HPI. VITALS: BP 162/92 Pulse 72 Wt 107.5 kg (237 lb) SpO2 100% BMI 41.98 kg/m Last 4 Encounter Wt Readings: Date: Wt: 09/10/2022 108 kg (238 lb) 08/27/2022 108 kg (238 lb) 06/02/2022 105.7 kg (233 lb) 03/31/2022 104.8 kg (231 lb) PHYSICAL EXAMINATION: General appearance: Well appearing, alert, in no acute distress, well-hydrated, well nourished. Skin: Skin color, texture, turgor normal, no suspicious rashes or lesions Head: Normocephalic, no masses, lesions, tenderness or abnormalities Lungs: Lungs clear to auscultation. No wheezing, rhonchi, rales Heart: RRR without murmur, gallop, or rubs. No ectopy Abdomen: Normal abdominal exam, Abdomen soft, non-tender. Bowel sounds normal. No masses, organomegaly Extremities: No deformities, edema, skin discoloration, clubbing or cyanosis. Good capillary refill. ASSESSMENT/PLAN: 1. Colitis - ICD9: 558.9, ICD10: K52.9 (primary diagnosis) -? Etiology. See above. Red flags for re-assessment reviewed with patient in detail. - CONSULT TO GENERAL SURGERY 2. Hypothyroidism, acquired - ICD9: 244.9, ICD10: E03.9 - now on meds. Will follow. 3. Stage 3 chronic kidney disease, unspecified whether stage 3a or 3b CKD (HCC) - ICD9: 585.3, ICD10: - await labs. 4. Diarrhea, unspecified type - ICD9: 787.91, ICD10: R19.7 - CONSULT TO GENERAL SURGERY 5. Rectal bleeding - ICD9: 569.3, ICD10: K62.5 - await labs. - CONSULT TO GENERAL SURGERY Norm Sharif BP check in one month. Rto in three months documented in this encounterWay[facility]-2023 Miscellaneous Notes* Telephone Encounter - Nona Webb LPN - 09/11/2022 2:08 PM EST Patient notified. * Telephone Encounter - Norm Sharif MD - 09/11/2022 1:29 PM EST Kidney function is stable. Slightly anemic. Likely from the bleeding. Recheck cbc and other anemia labs in one week. documented in this encounterWay[facility]01-04-2023 History of Present illness Narrative* Norm Sharif MD - 09/10/2022 2:48 PM EST Patient presents with: ER F/U HPI: Patient presents today for office visit for follow up. HOSPITAL/ER FOLLOW UP: Reason for visit: bloody diarrhea, vomiting Which facility: [facility] (report in Epic) Date of visit: 09/05/22 Diagnosis: GI bleed, ? pseudomembranous enterocolitis Testing done: CT abd/pelvis, CBC, CMP, EKG. No stool studies were done by ED. They diagnosed it presumed to be c diff based on ct and exam. Treatment given: vanco, Eliquis stopped for 3 days Current symptoms: feels bloated No more bleeding Was passing bloody mucousy stool. Is moving bowels about three times a day. Is loose but not as much. Still on vanco. Her had c diff but she states it smells different that his did etc. She is wondering if that is truly what it was. No travel hx. Non one else is ill. Last colonoscopy was 2013. MEDICATIONS: Current Outpatient Medications Medication Sig levothyroxine (SYNTHROID) 50 mcg tablet Take 1 tablet by mouth once daily. Take on empty stomach. For Thyroid. hydroCHLOROthiazide (HYDRODIURIL, ESIDRIX) 25 mg tablet Take 1 tablet by mouth once daily. benzonatate (TESSALON PERLES) 100 mg capsule Take 1 capsule by mouth three times daily as needed for cough. lisinopril (ZESTRIL, PRINIVIL) 40 mg tablet Take 1 tablet by mouth once daily. apixaban (ELIQUIS) 5 mg tab(s) Take 1 tablet by mouth twice daily. amiodarone (PACERONE) 200 mg tablet Take 1 tablet by mouth once daily. CPAP Initiate Auto PAP @ 5-20 cm of water with humidification. Mask (per patient preference) optional chin strap (if indicated) , filters, tubing, humidifier and lifetime supplies. acetaminophen (TYLENOL) 500 mg tablet Take 2 tablets by mouth every 8 hours as needed for pain. aspirin, enteric coated (ECOTRIN LOW STRENGTH) 81 mg EC tablet Take 1 tablet by mouth twice daily. ezetimibe (ZETIA) 10 mg tablet Take 1 tablet by mouth once daily. multivitamin tablet Take 1 tablet by mouth once daily. Current Facility-Administered Medications Medication Dose Route Frequency perflutren lipid microspheres 1.3 mL in NaCl (PF) 0.9% 10 mL injection (DEFINITY) INTRAVENOUS DIRECTED PRN sodium chloride 0.9 % (flush) 10 mL (BD POSIFLUSH) 10 mL INTRAVENOUS DIRECTED PRN ALLERGIES: ALLERGIES Allergen Reactions Nsaids (Non-Steroid* Other: See Comments Pt. states has cautioned her not to use due to kidney disease Vochxnc-Ite-Sox Red* Myalgia PAST MEDICAL HISTORY Diagnosis Date Generalized osteoarthrosis, unspecified site HTN (hypertension) Lung nodule repeat ct in spring, benign Other and unspecified hyperlipidemia PAST SURGICAL HISTORY Procedure Laterality Date COLONOSCOPY 08/26/2005 VJ - scattered tic EGD 08/26/2005 VJ - normal PAST SURGICAL HISTORY OF Right carpal tunnel on the right hand PAST SURGICAL HISTORY OF Right arthoscopy on the right knee PAST SURGICAL HISTORY OF Right 01/2016 ORIF right ankle, 2 small screws remain by Dr. Bedoya TOTAL HIP REPLACEMENT Left 07/17/2021 Left total hip arthroplasty TOTAL KNEE REPLACEMENT Right 12/25/2021 Right total knee replacement UNSPECIFIED ORAL SURGERY PROCEDURE, BY REPORT wisdom teeth removed. FAMILY HISTORY Problem Relation Age of Onset Heart Mother Hypertension Mother Hypertension Father Renal Disease Father Asthma No Family History COPD No Family History Social History Tobacco Use Smoking status: Former Packs/day: 0.50 Years: 20.00 Pack years: 10.00 Types: Cigarettes Quit date: 11/08/2000 Years since quittin.8 Smokeless tobacco: Never Tobacco comments: 2003 quit Vaping Use Vaping Use: Never used Substance Use Topics Alcohol use: No Drug use: No Reviewed current medications, allergies, past medical history, surgical history, family history andsocial history today. REVIEW OF SYSTEMS All other reviewed and negative other than HPI. VITALS: BP 142/82 Pulse 72 Wt 108 kg (238 lb) SpO2 99% BMI 42.16 kg/m Last 4 Encounter Wt Readings: Date: Wt: 08/27/2022 108 kg (238 lb) 06/02/2022 105.7 kg (233 lb) 03/31/2022 104.8 kg (231 lb) 03/02/2022 105.9 kg (233 lb 6.4 oz) PHYSICAL EXAMINATION: General appearance: Well appearing, alert, in no acute distress, well-hydrated, well nourished. Skin: Skin color, texture, turgor normal, no suspicious rashes or lesions Head: Normocephalic, no masses, lesions, tenderness or abnormalities Lungs: Lungs clear to auscultation. No wheezing, rhonchi, rales Heart: RRR without murmur, gallop, or rubs. No ectopy Abdomen: Normal abdominal exam, Abdomen soft, mild lower abd tenderness. Bowel sounds normal. No masses, organomegaly Extremities: No deformities, edema, skin discoloration, clubbing or cyanosis. Good capillary refill. ASSESSMENT/PLAN: 1. Diarrhea, unspecified type - ICD9: 787.91, ICD10: R19.7 (primary diagnosis) - treating per Er for possible c diff. Discussed we could at least try stool samples to see if I can confirm. Red flags for re-assessment reviewed with patient in detail. - check labs as well. Continue vanco. Consider repeat colonoscopy. Recheck one week. 2. Morbid obesity with BMI of 40.0-44.9, adult (HCC) - ICD9: 278.01, V85.41, ICD10: E66.01, Z68.41 3. Atrial tachycardia (HCC) - ICD9: 427.89, ICD10: I47.1 4. Chronic kidney disease, stage 3a (HCC) - ICD9: 585.3, ICD10: N18.31 - follow 5. Colitis - ICD9: 558.9, ICD10: K52.9 - C. DIFFICILE PCR - CRYPTOSPORIDIUM AND GIARDIA ANTIGENS BY EIA - ENTERIC BACTERIAL PANEL BY PCR - FECAL LACTOFERRIN/LEUKOCYTES 6. Rectal bleeding - ICD9: 569.3, ICD10: K62.5 - CBC + DIFF - BASIC METABOLIC PNL Norm Sharif MD documented in this encounterWay[facility]12-30-2022 Miscellaneous Notes* Telephone Encounter - Jessica Piedra RN - 09/05/2022 4:40 PM EST Pt contacted and F/U appt made for next week with Dr. Sharif. Jessica Piedra RN * Telephone Encounter - Norm Sharif MD - 09/05/2022 4:31 PM EST Follow up in next week. Call if worsens at all. * Telephone Encounter - Amanda Cummins RN - 09/05/2022 4:25 PM EST Pt called in and reports she went to [facility] ER, and they will send the report to the provider. She states they found out she has C diff and had he stop the antibiotic the provider had put her on and started her on Vancomycin. They had her stop the Eliquis for 3 days due to the bleeding. Pt was just calling to update provider. documented in this encounterWay[facility]12-28-2022 Miscellaneous Notes* Telephone Encounter - Amee Lyle Ma - 09/03/2022 9:01 AM EST Pt notified of results via [employer] [facility]. Amee Lyle Ma * Telephone Encounter - Norm Sharif MD - 09/03/2022 8:07 AM EST Thyroid is definitely underactive. Start synthroid and recheck tsh in six weeks. Follow up with one of us after lab draw documented in this encounterWay[facility]12-22-2022 Miscellaneous Notes* Telephone Encounter - Jessica Piedra RN - 08/28/2022 1:53 PM EST Patient returned call and given provider's message below and patient verbalized understanding. Patricia Piedra RN * Telephone Encounter - Jessica Piedra RN - 08/28/2022 1:44 PM EST VM left for patient to call PCP office for provider's message below. Jessica Piedra RN * Telephone Encounter - Norm Sharif MD - 08/28/2022 12:22 PM EST Waiting on urine culture. Urine could be infected. Rx sent. Thyroid may well be underactive. Recheck labs(is on pacerone which can cause.) documented in this encounterWay[facility]12-21-2022 History of Present illness Narrative* Norm Sharif MD - 08/27/2022 10:58 AM EST Patient presents with: 6 Month Exam HPI: Patient presents today for office visit for follow up. Concerns of severe bronchial cough X 6wks. Coughing fits at night. Causing headaches and chest discomfort. Complaints of nausea X 2wks A lot of drainage. Did not do home covid. Has a lot of sinus pressure. Still has not received CPAP. Machine has been on back order Not sleeping well. HTN: no chest pain Some shortness of breath with above cough. No dizziness Mild edema. Usually resolves at night No palpitations No syncope Urology: Nocturia. Getting up about every two hours to urinate. Urge and stress incontinence X 4-5 mos. Does not see urology. Denies hematuria. Cardiology: Sees Dr. Prakash. Due for appointment in September. 10/06/22. See Mary's last note:04/28 Started recently again with constipation. Discussed using miralax. Has been that way for three months. No bloody or black stools. Admitted to [facility] on 04/18/22. Refers that she was feeling right and had some left sided chest discomfort that radiated to the left arm and back. Daughter called for EMS. Reports EMS told her that her heart was jumping all over the place, so taken into the ER. EKG in the ER revealed A. fib with RVR. She initially was given 3 doses of IV Lopressor for total of 15 mg which did bring her heart rate down to approximately 125; however: Her heart rate went back up to the 140s and she developed chest tightness again. She is a previous history of not tolerating diltiazem. At that time she was started on an amiodarone drip and did convert to sinus rhythm in the emergencyroom. The amiodarone drip was completed. On completion of the amiodarone drip, she was converted to oral amiodarone. During her hospitalization she was treated with a heparin drip, but was transitioned to Eliquis. Metoprolol was discontinued. During her hospitalization she did have an echocardiogram which showed her EF to be 65%. It also showed left atrium and right atrium are mildly enlarged. Mild to moderate mitral valve insufficiency. Mild to moderate tricuspid valve insufficiency. Aortic valve sclerosis/mild aortic valve stenosis. Mild pulmonic valve insufficiency. Right ventricular systolic pressure estimated to be 37 mmHg. StageII diastolic dysfunction. Was discharged on 04/20. Feeling okay, other than a little fuzzy headed and jittery. Eating and drinking okay. Gets a little winded -- thinks related to weather and masks -- really not much different than before . No CP. No palpitations. Urinating and moving bowels. Denies any s/s of bleeding. 04/20/22 labs H/H - 11.4/35.8 BUN/Creat/GFR - 15/0.84/70 Component Latest Ref Rng & Units 08/22/2022 WBC 3.70 - 11.00 k/uL 8.91 RBC 3.90 - 5.20 m/uL 3.89 (L) Hemoglobin 11.5 - 15.5 g/dL 12.0 Hematocrit 36.0 - 46.0 % 36.6 MCV 80.0 - 100.0 fL 94.1 MCH 26.0 - 34.0 pg 30.8 MCHC 30.5 - 36.0 g/dL 32.8 RDW-CV 11.5 - 15.0 % 13.0 Platelet Count 150 - 400 k/uL 352 MPV 9.0 - 12.7 fL 11.0 Neut% % 69.5 Abs Neut (ANC) 1.45 - 7.50 k/uL 6.18 Lymph% % 17.6 Abs Lymph 1.00 - 4.00 k/uL 1.57 [place]% % 10.1 Abs [place] <0.87 k/uL 0.90 (H) Eosin% % 2.1 Abs Eosin <0.46 k/uL 0.19 Baso% % 0.4 Abs Baso <0.11 k/uL 0.04 Immature Gran % % 0.3 IMMATURE GRANS (ABS) <0.10 k/uL 0.03 NRBC /100 WBC 0.0 Absolute nRBC <0.01 k/uL <0.01 DTYPE Auto Protein, Total 6.3 - 8.0 g/dL 7.6 Albumin 3.9 - 4.9 g/dL 4.3 Calcium 8.5 - 10.2 mg/dL 9.3 Bilirubin, Total 0.2 - 1.3 mg/dL 0.3 Alkaline Phosphatase 34 - 123 U/L 73 AST 13 - 35 U/L 28 ALT 7 - 38 U/L 16 Glucose 74 - 99 mg/dL 80 BUN 7 - 21 mg/dL 19 Creatinine 0.58 - 0.96 mg/dL 1.42 (H) Sodium 136 - 144 mmol/L 139 Potassium 3.7 - 5.1 mmol/L 4.2 Chloride 97 - 105 mmol/L 101 CO2 22 - 30 mmol/L 26 Anion Gap 9 - 18 mmol/L 12 eGFR >=60 mL/min/1.73m 37 (L) Cholesterol, Total <200 mg/dL 271 (H) Triglyceride <150 mg/dL 137 HDL Cholesterol >39 mg/dL 76 Non HDL Cholesterol <130 mg/dL 195 (H) Fasting Time hrs 12 VLDL Cholesterol <30 mg/dL 27 TC:HDL Ratio <5.10 3.57 LDL Cholesterol <100 mg/dL 168 (H) LDL:HDL Ratio <2.54 2.21 MEDICATIONS: Current Outpatient Medications Medication Sig lisinopril (ZESTRIL, PRINIVIL) 40 mg tablet Take 1 tablet by mouth once daily. apixaban (ELIQUIS) 5 mg tab(s) Take 1 tablet by mouth twice daily. amiodarone (PACERONE) 200 mg tablet Take 1 tablet by mouth once daily. CPAP Initiate Auto PAP @ 5-20 cm of water with humidification. Mask (per patient preference) optional chin strap (if indicated) , filters, tubing, humidifier and lifetime supplies. acetaminophen (TYLENOL) 500 mg tablet Take 2 tablets by mouth every 8 hours as needed for pain. aspirin, enteric coated (ECOTRIN LOW STRENGTH) 81 mg EC tablet Take 1 tablet by mouth twice daily. ezetimibe (ZETIA) 10 mg tablet Take 1 tablet by mouth once daily. hydroCHLOROthiazide (HYDRODIURIL, ESIDRIX) 25 mg tablet Take 1 tablet by mouth once daily. multivitamin tablet Take 1 tablet by mouth once daily. Current Facility-Administered Medications Medication Dose Route Frequency perflutren lipid microspheres 1.3 mL in NaCl (PF) 0.9% 10 mL injection (DEFINITY) INTRAVENOUS DIRECTED PRN sodium chloride 0.9 % (flush) 10 mL (BD POSIFLUSH) 10 mL INTRAVENOUS DIRECTED PRN ALLERGIES: ALLERGIES Allergen Reactions Nsaids (Non-Steroid* Other: See Comments Pt. states has cautioned her not to use due to kidney disease Ecuvsbs-Ngf-Pot Red* Myalgia PAST MEDICAL HISTORY Diagnosis Date Generalized osteoarthrosis, unspecified site HTN (hypertension) Lung nodule repeat ct in spring, benign Other and unspecified hyperlipidemia PAST SURGICAL HISTORY Procedure Laterality Date COLONOSCOPY 08/26/2005 VJ - scattered tic EGD 08/26/2005 VJ - normal PAST SURGICAL HISTORY OF Right carpal tunnel on the right hand PAST SURGICAL HISTORY OF Right arthoscopy on the right knee PAST SURGICAL HISTORY OF Right 01/2016 ORIF right ankle, 2 small screws remain by Dr. Bedoya TOTAL HIP REPLACEMENT Left 07/17/2021 Left total hip arthroplasty TOTAL KNEE REPLACEMENT Right 12/25/2021 Right total knee replacement UNSPECIFIED ORAL SURGERY PROCEDURE, BY REPORT wisdom teeth removed. FAMILY HISTORY Problem Relation Age of Onset Heart Mother Hypertension Mother Hypertension Father Renal Disease Father Asthma No Family History COPD No Family History Social History Tobacco Use Smoking status: Former Packs/day: 0.50 Years: 20.00 Pack years: 10.00 Types: Cigarettes Quit date: 11/08/2000 Years since quittin.8 Smokeless tobacco: Never Tobacco comments: 2003 quit Vaping Use Vaping Use: Never used Substance Use Topics Alcohol use: No Drug use: No Reviewed current medications, allergies, past medical history, surgical history, family history andsocial history today. REVIEW OF SYSTEMS All other reviewed and negative other than HPI. HEALTH MAINTENANCE: Reviewed health maintenance issues today and recommended the following in detail. COVID-19 VACCINE(3 - Booster for Pfizer series) due on 06/14/2021 INFLUENZA(1) due on 05/08/2022 VITALS: BP 158/78 Pulse 79 Temp 37.4 C (99.4 F) Ht 160 cm (5' 3 ) Wt 108 kg (238 lb) SpO2 96% BMI 42.16 kg/m Last 4 Encounter Wt Readings: Date: Wt: 06/02/2022 105.7 kg (233 lb) 03/31/2022 104.8 kg (231 lb) 03/02/2022 105.9 kg (233 lb 6.4 oz) 02/20/2022 104.3 kg (230 lb) PHYSICAL EXAMINATION: General appearance: Well appearing, alert, in no acute distress, well-hydrated, well nourished. andfrequent cough Skin: Skin color, texture, turgor normal, no suspicious rashes or lesions Heent negative. Neck: Supple, no adenopathy; thyroid symmetric, normal size, no bruits Lungs: Lungs clear to auscultation. No wheezing, rhonchi, rales Heart: RRR without murmur, gallop, or rubs. No ectopy Abdomen: Normal abdominal exam, Abdomen soft, non-tender. Bowel sounds normal. No masses, organomegaly Extremities: No deformities, edema, skin discoloration, clubbing or cyanosis. Good capillary refill. Musculoskeletal: No joint swelling, deformity, or tenderness ASSESSMENT/PLAN: 1. Bronchitis - ICD9: 490, ICD10: J40 (primary diagnosis) - Discussed risks and benefits of new medication with the patient. Advised them to call if any sideeffects or questions. Red flags for re-assessment reviewed with patient in detail. Call if symptoms worsen at all or if not better in one to two weeks Reviewed diagnosis and treatment options in detail. Questions were answered. Patient expressed understanding of treatment plan. - XR CHEST 2V FRONTAL/LAT - tessalon. - DOXYCYCLINE MONOHYDRATE 100 MG TABLET 2. Essential hypertension, benign - ICD9: 401.1, ICD10: I10 - suboptimal control - Continue current medication(s) - recheck next ov - Goal of BP <130/80 - HYDROCHLOROTHIAZIDE 25 MG TABLET 3. Stage 3 chronic kidney disease, unspecified whether stage 3a or 3b CKD (HCC) - ICD9: 585.3, ICD10: N18.30 - check labs. - URINALYSIS, WITH MICROSCOPIC - BASIC METABOLIC PNL 4. Urinary incontinence, unspecified type - ICD9: 788.30, ICD10: R32 - check labs. - URINALYSIS, WITH MICROSCOPIC - URINE CULTURE 5. Paroxysmal atrial fibrillation (HCC) - ICD9: 427.31, ICD10: I48.0 - TSH BLD 6. Mixed hyperlipidemia - ICD9: 272.2, ICD10: E78.2 - good control - Continue current medication. 7. Acute constipation - ICD9: 564.00, ICD10: K59.00 - miralax. Check tsh Consider colonoscopy if continues. - FECAL OCCULT BLOOD TEST Norm Sharif MD documented in this encounterWayne [facility]12-16-2022 History of Present illness Narrative* Radha Martines RN - 08/22/2022 1:41 PM EST INSIGHT CD TELEPHONIC OUTREACH Provider Action/FYI: Contact made with patient: No - Left message Hyun my name is Radha Martines RN your Field Operations Manager [facility] I am calling today for your bi-weekly check in. I am sorry I missed your call. I will reach out to you again tomorrow. (if the third call I will reach out to you again next week) Enter next patient outreach date forthe following business day using the Track Pt Outreach. End outreach. [facility] History of Present illness Narrative* Radha Martines RN - 08/21/2022 11:19 AM EST [facility] TELEPHONIC OUTREACH Provider Action/FYI: Contact made with patient: No - Left message Hello my name is Radha Martines RN your Field Operations Manager from the [facility] I am calling today for your bi-weekly check in. I am sorry I missed your call. I will reach out to you again tomorrow. (if the third call I will reach out to you again next week) Enter next patient outreach date forthe following day using the Track Pt Outreach. End outreach. documented in this [facility]11-30-2022 Miscellaneous Notes* Telephone Encounter - Roma Singh Pss - 08/06/2022 3:31 PM EST Patient has been identified by name and date of : Yes Last office visit in this department: 04/22/2022 Labs-05/07/22 NOV-08/27/22 med filled 08/22/21 RX INSTRUCTIONS: Pharmacy initiated this request. No need to notify patient. Patient phones requesting refills as follows: Requested Prescriptions Pending Prescriptions Disp Refills lisinopril (ZESTRIL, PRINIVIL) 40 mg tablet 90 tablet 3 Sig: Take 1 tablet by mouth once daily. Please review and advise. Roma Singh Pss documented in this encounterWay[facility]11-30-2022 Evaluation note* Diagnosis Essential hypertension, benign Stage 3 chronic kidney disease, unspecified whether stage 3a or 3b CKD (HCC) documented in this encounter [facility] History of Present illness Narrative* Radha Martines RN - 07/25/2022 11:34 AM EST INSIGHT CD TELEPHONIC OUTREACH Provider Action/FYI: Contact made with patient: Yes Patient identified by name and . Discussed care with patient It s nice talking to you again. As a reminder, this is our bi-weekly check-in where I will be asking you questions about your health. This will only take a few minutes of your time. Is this a good time? Yes Symptoms What Chronic Disease(s) does the patient have: CKD Do you check your blood pressures at home? No States she needs to call her insurance company and she can get one for free Do you have new or worse shortness of breath with activity? No Do you feel like you are dehydrated for any reason, including not being able to eat or drink normally, or having less urine/much darker urine than normal for you? No Do you check your daily weight at home? Yes, Have you noticed a sudden gain in weight greater than three pounds in a day or three pounds in a week? No Are you having any other symptoms that your PCP needs to know about? No Symptom Escalation The patient required an escalation for symptom(s)? No Medications Do you have any questions about taking your medication or which medications you should be on? No Do you need any medication refills at this time, including any of the medications you might take only when needed? No Social We would like to make sure you have what you need so that your basic needs are met- including your personal safety, food, housing and medications? Would you like to speak with a social work team foreman to help give you support for any of these needs? No It can be normal to feel anxious or down during a time like this. Would you like to talk to a mental health professional about how you have been feeling? No Closing Thank you for taking the time to talk with me today. We want to work with you to ensure that we arekeeping your medical condition(s) well-controlled and to keep you healthy and out of the doctor's office or hospital. It s also not too late for me to sign you up for automated weekly questionnaires through [employer]. This is an easy way for us to stay connected each week. Are you interested? No, I understand. We can always sign you up in the future if you change your mind. Just as a reminder, will continue to call you every other week to check in on your health. Our calls should take 10-15 minutes or less. Remember, if you have concerns in between our calls, please call your PCP's office right away. Thank you. Enter next patient outreach date for two weeks on the same day of the week as today in the Track PtOutreach and End outreach. documented in this encounter[facility]10[facility]22 History of Present illness Narrative* Radha Martines RN - 06/26/2022 11:57 AM EDT INSIGHT CDM TELEPHONIC OUTREACH Provider Action/FYI: Contact made with patient: Yes Patient identified by name and . Discussed care with patient It s nice talking to you again. As a reminder, this is our bi-weekly check-in where I will be asking you questions about your health. This will only take a few minutes of your time. Is this a good time? Yes Symptoms What Chronic Disease(s) does the patient have: CKD Do you check your blood pressures at home? No Do you have new or worse shortness of breath with activity? No Do you feel like you are dehydrated for any reason, including not being able to eat or drink normally, or having less urine/much darker urine than normal for you? No Do you check your daily weight at home? No Are you having any other symptoms that your PCP needs to know about? No Symptom Escalation The patient required an escalation for symptom(s)? No Medications Do you have any questions about taking your medication or which medications you should be on? No Do you need any medication refills at this time, including any of the medications you might take only when needed? No Social We would like to make sure you have what you need so that your basic needs are met- including your personal safety, food, housing and medications? Would you like to speak with a social work team foreman to help give you support for any of these needs? No It can be normal to feel anxious or down during a time like this. Would you like to talk to a mental health professional about how you have been feeling? No Closing Thank you for taking the time to talk with me today. We want to work with you to ensure that we arekeeping your medical condition(s) well-controlled and to keep you healthy and out of the doctor's office or hospital. It s also not too late for me to sign you up for automated weekly questionnaires through [employer]. This is an easy way for us to stay connected each week. Are you interested? No, I understand. We can always sign you up in the future if you change your mind. Just as a reminder, will continue to call you every other week to check in on your health. Our calls should take 10-15 minutes or less. Remember, if you have concerns in between our calls, please call your PCP's office right away. Thank you. Enter next patient outreach date for two weeks on the same day of the week as today in the Track PtOutreach and End outreach. documented in this encounterWay[facility]09-26-2022 Instructions* Patient Instructions* Reji Prakash MD - 06/02/2022 11:47 AM EDT Repeat blood work documented in this encounterWay[facility]09-26-2022 History of Present illness Narrative* Reji Prakash MD - 06/02/2022 11:20 AM EDT Images from the original note were not included. [facility] SECTION OF REGIONAL CARDIOLOGY Cardiology ([facility]) [address] [facility] [id number] OUTPATIENT VISIT DATE 06/02/2022 PRIMARY CARE PHYSICIAN: Norm Sharif [address] [place] [address] HISTORY OF PRESENT ILLNESS: Ms. Gonzalez is a 81 year old woman who underwent catheterization in February after found to have ventricular tachycardia on outpatient monitoring. She had mild coronary artery disease. She was subsequently admitted to [facility] in April with new onset atrial fibrillation. She was placed on amiodarone and Eliquis. She is complaining of worsening lightheadedness and dizziness since starting the amiodarone. She is not sure if this is a side effect of the medication. She has difficulties making fast movements or turns due to near syncopal episodes. She does not describe room spinning. She does not tend to have symptoms when she is sitting or at rest. She has chronic shortness of breath on exertion which is unchanged from prior. She has not had symptoms concerning for CHF including PND, orthopnea, or lower extremity edema. PAST MEDICAL HISTORY Diagnosis Date Generalized osteoarthrosis, unspecified site HTN (hypertension) Lung nodule repeat ct in spring, benign Other and unspecified hyperlipidemia PAST SURGICAL HISTORY Procedure Laterality Date COLONOSCOPY 08/26/2005 VJ - scattered tic EGD 08/26/2005 VJ - normal PAST SURGICAL HISTORY OF Right carpal tunnel on the right hand PAST SURGICAL HISTORY OF Right arthoscopy on the right knee PAST SURGICAL HISTORY OF Right 01/2016 ORIF right ankle, 2 small screws remain by Dr. Bedoya TOTAL HIP REPLACEMENT Left 07/17/2021 Left total hip arthroplasty TOTAL KNEE REPLACEMENT Right 12/25/2021 Right total knee replacement UNSPECIFIED ORAL SURGERY PROCEDURE, BY REPORT wisdom teeth removed. SOCIAL HISTORY Social History Tobacco Use Smoking status: Former Packs/day: 0.50 Years: 20.00 Pack years: 10.00 Types: Cigarettes Quit date: 11/08/2000 Years since quittin.5 Smokeless tobacco: Never Tobacco comments: 2003 quit Vaping Use Vaping Use: Never used Substance Use Topics Alcohol use: No Drug use: No FAMILY HISTORY Problem Relation Age of Onset Heart Mother Hypertension Mother Hypertension Father Renal Disease Father Asthma No Family History COPD No Family History ALLERGIES: ALLERGIES Allergen Reactions Nsaids (Non-Steroid* Other: See Comments Pt. states has cautioned her not to use due to kidney disease E[facility]cndn-Cao-Bpi Red* Myalgia MEDICATIONS: apixaban (ELIQUIS) 5 mg tab(s)^Take 1 tablet by mouth twice daily.^Disp: 180 tablet^Rfl: 3 amiodarone (PACERONE) 200 mg tablet^Take 1 tablet by mouth once daily.^Disp: 90 tablet^Rfl: 3 acetaminophen (TYLENOL) 500 mg tablet^Take 2 tablets by mouth every 8 hours as needed for pain.^Disp: 90 tablet^Rfl: 0 aspirin, enteric coated (ECOTRIN LOW STRENGTH) 81 mg EC tablet^Take 1 tablet by mouth twice daily.^Disp: 60 tablet^Rfl: 0 ezetimibe (ZETIA) 10 mg tablet^Take 1 tablet by mouth once daily.^Disp: 90 tablet^Rfl: 3 hydroCHLOROthiazide (HYDRODIURIL, ESIDRIX) 25 mg tablet^Take 1 tablet by mouth once daily.^Disp: 90tablet^Rfl: 3 lisinopril (ZESTRIL, PRINIVIL) 40 mg tablet^Take 1 tablet by mouth once daily.^Disp: 90 tablet^Rfl:3 multivitamin tablet^Take 1 tablet by mouth once daily.^Disp: ^Rfl: CPAP^Initiate Auto PAP @ 5-20 cm of water with humidification. Mask (per patient preference) optional chin strap (if indicated) , filters, tubing, humidifier and lifetime supplies.^Disp: 1 Each^Rfl: 0 REVIEW OF SYSTEMS: Review of Systems Constitutional: Negative for chills, fever, malaise/fatigue and weight loss. HENT: Negative for hearing loss and sore throat. Eyes: Negative for blurred vision and double vision. Respiratory: Positive for shortness of breath. Cardiovascular: Positive for palpitations. Gastrointestinal: Negative. Genitourinary: Negative for dysuria, frequency, hematuria and urgency. Musculoskeletal: Negative. Skin: Negative. Neurological: Negative for dizziness, seizures, loss of consciousness, weakness and headaches. Endo/Heme/Allergies: Negative for environmental allergies. Does not bruise/bleed easily. Psychiatric/Behavioral: Negative for depression. PHYSICAL EXAMINATION: BP 150/76 Pulse 72 Wt 233 lb (105.7kg) SpO2 98% General: Pleasant woman sitting appears comfortable no apparent distress. She is alert and orientedx3 HEENT: Carotid upstrokes are brisk without bruits no JVD appreciated. Pulmonary: Lungs are clear no rales, wheezes, rhonchi Cardiovascular: Normal S1, S2 with regular rate and rhythm. No murmurs, rubs, or gallops Extremities: Warm, well-perfused, no lower extremity edema. Distal pulses are 2- 3+ and symmetric. CARDIOVASCULAR MEDICINE TESTING: Cardiac Catheterization 02/14/2022: Hemodynamics: LVEDP: 13 mmHg LV - AORTA: No gradient. Coronary Angiography: Left Main: Normal Left Anterior Descending: Large caliber vessel. The proximal vessel has mild diffuse <30% luminal narrowing. Circumflex: Large-caliber nondominant vessel with a large obtuse marginal branch which extends to the apical lateral wall. There is mild diffuse disease Right Coronary Artery: Large-caliber dominant vessel with mild diffuse disease Echocardiogram 04/18/2022 Left Ventricle Normal LV size. Apical false tendon noted. Left ventricular systolic function is normal. The estimated ejection fraction is 65 %. Stage 2 diastolic dysfunction. No regional wallmotion abnormalities noted. Right Ventricle Normal RV size. Normal systolic function. Atria The left atrium is mildly enlarged. The right atrium is mildly enlarged. No doppler evidence forASD. Mitral Valve There is mild mitral annular calcification. Normal mitral valve. Mild-Moderate (1-2+) mitral valveinsufficiency. Tricuspid Valve Normal tricuspid valve. Mild to moderate (1-2+) tricuspid valve insufficiency. Right ventricularsystolic pressure estimated to be 37 mmHg. Aortic Valve Trisinus/trileaflet aortic valve. Mild diffuse aortic valve thickening. Mild focal aortic valve calcification. Aortic valve sclerosis/mild aortic valve stenosis. Pulmonic Valve The pulmonic valve is not well visualized. Mild (1+) pulmonic valve insufficiency. Great Vessels Normal sized aortic root. Pericardium/Pleural No pericardial effusion. Echocardiogram 01/23/2022: - Technically difficult exam due to body habitus. - Exam indication: Palpitations - The left ventricle is normal in size. There is mild concentric left ventricular hypertrophy. Left ventricular systolic function is normal. EF = 65 5% (2D biplane) Indeterminate left ventricular diastolic dysfunction due to inconsistent or technically suboptimal data. - The right ventricle is normal in size. Right ventricular systolic function is normal. - The visualized aorta is borderline dilated with a maximal dimension of 3.8 cm. - Exam was compared with the prior CC echocardiographic exam performed on 04/16/2018, no significant change. Echocardiogram 04/16/2018 CONCLUSIONS: - Technically difficult exam due to body habitus. - Exam indication: Tachycardia - The left ventricle is normal in size. There is mild concentric left ventricular hypertrophy. Leftventricular systolic function is normal. EF = 62 5% (2D 4-ch.) Definity contrast used for endocardial border detection. Normal left ventricular diastolic function. - The right ventricle is normal in size. Right ventricular systolic function is normal. - There are no significant valvular abnormalities. - The patient has not had a prior CC echocardiographic exam for comparison. Carotid Ultrasound 04/16/2022: IMPRESSION RIGHT SIDE Internal carotid artery: 20-39% stenosis. Vertebral artery: Patent and antegrade flow noted. Innominate artery: Unable to visualize. LEFT SIDE Internal carotid artery: 20-39% stenosis. Vertebral artery: Patent and antegrade flow noted. Subclavian artery: Plaque visualized without evidence of hemodynamically significant stenosis. Zio Monitor 01/06-01/20/22: Patient had a min HR of 52 bpm, max HR of 218 bpm, and avg HR of 70 bpm. Predominant underlying rhythm was Sinus Rhythm. 2 Ventricular Tachycardia runs occurred, the run with the fastest interval lasting 9 beats with a max rate of 218 bpm, the longest lasting 10 beats with an avg rate of 184 bpm. 88 Supraventricular Tachycardia runsoccurred, the run with the fastest interval lasting 9 beats with a max rate of 200 bpm, the longestlasting 15.8 secs with an avg rate of 115 bpm. Isolated SVEs were rare (<1.0%), SVE Couplets were rare (<1.0%), and SVE Triplets were rare (<1.0%). Isolated VEs were rare (<1.0%), VE Couplets were rare (<1.0%), and no VE Triplets were present. IMPRESSION: Ms. Gonzalez is a 81 year old woman with mild coronary artery disease on catheterization February 2022, new onset paroxysmal atrial fibrillation, hypertension, and dyslipidemia with severe statin intolerance who presents the office for follow-up after recent hospital admission. Results of her hospital admission and cardiac catheterization were reviewed with her during the office visit. PLAN AND RECOMMENDATIONS: 1. Coronary artery disease involving [place] coronary artery of [place] heart without angina pectoris- ICD9: 414.01, ICD10: I25.10 (primary diagnosis) Patient has maximum tolerated therapy without symptoms concerning for angina. Continue current riskfactor modification including, but not limited to, dietary modification and increase exercise. - COMP METABOLIC PANEL 2. Paroxysmal atrial fibrillation (HCC) - ICD9: 427.31, ICD10: I48.0 Patient may be having side effects secondary to amiodarone. Has scheduled her for repeat LFTs base metabolic panel and TSH. She is on Eliquis for stroke risk reduction - COMP METABOLIC PANEL - TSH BLD 3. Essential hypertension, benign - ICD9: 401.1, ICD10: I10 Patient is not optimally controlled on current regimen. However, I am reluctant to consider medication adjustments given her persistent lightheadedness and near syncopal episodes. 4. Mixed hyperlipidemia - ICD9: 272.2, ICD10: E78.2 Maintained on Zetia due to severe statin intolerance. - COMP METABOLIC PANEL 5. Statin intolerance - ICD9: 995.27, ICD10: Z78.9 6. Obesity, Class III, BMI >= 40 - ICD9: 278.01, ICD10: E66.01 Reji Prakash MD documented in this encounterWay[facility]09-23-2022 History of Present illness Narrative* Kori Hernandez RN - 05/30/2022 10:59 AM EDT inSight CDM Escalation Follow Up Action/FYI: Contact made with patient: Left Message: My name is Kori Hernandez RN, from the [facility].I am calling regarding your recent visit with our Virtual Provider. Sorry that I am not able to speak with you. If you have a problem that needs to addressed by your Physician, please contact your Primary Care Provider's office. - END OUTREACH documented in this encounterWayne [facility]09-22-2022 History of Present illness Narrative* Houston Choi APRN.DANISH - 05/29/2022 2:53 PM EDT Virtualist Distance Health Note (Community monitoring/[facility] escalations) Adult seen for Monitoring Track: Chronic Disease Management Contacted by phone, Evestra, Google Duo, Zoom, Doximity, other: Phone History of present illness: - Hx of HTN, HLD, nonsustained Vtach, CAD, CKD - Reporting 5lbs weight gain over past 3 weeks, states her weight today was 233lbs - States her legs and feet are swollen at the end of the day but okay in the morning - Takes HCTZ 25mg daily - No redness/warmth to legs, no wounds, no fevers - Recent echo on 04/19 from [facility] with EF of 65% - Pt denies any new/worsening SOB, states she has some mild SOB at baseline but this is no worse than normal - Denies CP, fevers/chills, dizziness/lightheadedness - Denies cough, URI symptoms - Reports difficulty getting up after sitting, she states she feels like after sitting for only 15-20 minutes her legs feel weak - Recently started amiodarone and Eliquis after being dx with Afib - She is scheduled with cardiology on 06/02 - No headaches, palpitations, dizziness/lightheadedness, unilateral weakness or paresthesias - She also complains of feeling hot at night despite only sleeping with a sheet - Denies having had blood work since initiating tx with amiodarone and eliquis Past medical history, past surgical history, family history and social history reviewed and updatedas indicated in EMR. REVIEW OF SYSTEMS: Review of Systems Constitutional: Positive for unexpected weight change. Negative for activity change, appetite change, chills, diaphoresis, fatigue and fever. Respiratory: Negative. Cardiovascular: Positive for leg swelling. Negative for chest pain and palpitations. Gastrointestinal: Negative for abdominal distention, abdominal pain, blood in stool, constipation, diarrhea, nausea and vomiting. Genitourinary: Negative for decreased urine volume, difficulty urinating, dysuria, flank pain, frequency, hematuria, pelvic pain, urgency, vaginal bleeding and vaginal discharge. Musculoskeletal: Negative. Skin: Negative for color change, pallor and wound. Neurological: Positive for weakness (pt reports leg weakness after sitting). Negative for dizziness, syncope, facial asymmetry, speech difficulty, light- headedness, numbness and headaches. Psychiatric/Behavioral: Negative for agitation, behavioral problems and confusion. VITAL SIGNS: (if available) There were no vitals taken for this visit. Physical Exam (if video visit was performed) Physical Exam Assessment/Plan: ASSESSMENT/PLAN: 1. Atrial fibrillation, unspecified type (HCC) - ICD9: 427.31, ICD10: I48.91 (primary diagnosis) 2. Bilateral leg edema - ICD9: 782.3, ICD10: R60.0 - Hx of HTN, HLD, nonsustained Vtach, CAD, CKD - Reporting 5lbs weight gain over past 3 weeks, states her weight today was 233lbs - States her legs and feet are swollen at the end of the day but okay in the morning - Takes HCTZ 25mg daily - No redness/warmth to legs, no wounds, no fevers - Recent echo on 04/19 from [facility] with EF of 65% - Pt denies any new/worsening SOB, states she has some mild SOB at baseline but this is no worse than normal - Denies CP, fevers/chills, dizziness/lightheadedness - Denies cough, URI symptoms - Reports difficulty getting up after sitting, she states she feels like after sitting for only 15-20 minutes her legs feel weak - Recently started amiodarone and Eliquis after being dx with Afib - She is scheduled with cardiology on 06/02 - No headaches, palpitations, dizziness/lightheadedness, unilateral weakness or paresthesias - She also complains of feeling hot at night despite only sleeping with a sheet - Denies having had blood work since initiating tx with amiodarone and eliquis - Pt is able to speak in clear and complete sentences without sounding in any distress, is pleasantto converse with - I recommended she continue current medications as prescribed at this time and she can discuss need for monitoring or dose adjustment of amiodarone and/or eliquis with Dr. Prakash on 06/02 - Do not feel as though patient needs additional diuresis at this time, she will discuss this with Dr. Prakash on Thursday - Recommended compression stocking or lio wrap during the day to help with lower leg edema, elevating legs when at rest - Red flag symptoms and when to seek emergency care discussed, patient verbalized understanding Houston Choi APRN.CNP Disposition: Patient remains at home A total of 10 minutes was spent providing medical care using telemedicine. Remove [facility] association Signed in as Primary Virtualist, Secondary Virtualist, or [facility] Telehealth provider: Primary SIGNATURE: Houston Choi APRN.CNP PATIENT NAME: Dayanara Gonzalez DATE: May 29, 2022 documented in this encounterWayne [facility]09-22-2022 History of Present illness Narrative* Radha Martines RN - 05/29/2022 2:30 PM EDT INSIGHT CD TELEPHONIC OUTREACH Provider Action/FYI: Houston Choi APN, CNP Virtualist, Has gained 5 pounds in the past 3 weeks No change in diet or amount of food she eats Legs and feet are swollen and tight in the evening, go down by morning Weight gain of 3-5 during the day and looses the weight by morning Drinks 8 oz of water or decaf coffee every hour from 8 am to 6 PM Has a hard time getting up after sitting for 15-20 min. Because it hurts, this is new Hands shake now, new Started 2 new medications about a month ago Eliquis and Amiodarone Seeing Occupational Health Professional on Thursday Agrees to Gunnerist phone call at [phone] Routed encounter to and paged gunnerist @ [phone] Contact made with patient: Yes Patient identified by name and . Discussed care with patient It s nice talking to you again. As a reminder, this is our bi-weekly check-in where I will be asking you questions about your health. This will only take a few minutes of your time. Is this a good time? Yes Symptoms What Chronic Disease(s) does the patient have: CKD Do you check your blood pressures at home? No Do you have new or worse shortness of breath with activity? No Do you feel like you are dehydrated for any reason, including not being able to eat or drink normally, or having less urine/much darker urine than normal for you? No Do you check your daily weight at home? Yes, Have you noticed a sudden gain in weight greater than three pounds in a day or three pounds in a week? No Are you having any other symptoms that your PCP needs to know about? No Symptom Escalation The patient required an escalation for symptom(s)? Yes, Virtualist - Inform patient that you will be contacting a provider who will be contacting them - Urgent / SAME DAY visit: Page Virtualist at and indicate 'CDM patient', MRN, Patient Name, Patient Concern, and patient's preferred method of contact (telephone, Evestra, Google AMS VariCodeo), your name, your contact number. Informed patient that you recommend further assessment from a provider to review symptoms. I have sent a page for the provider to contact you today. If you haven't heard from that provider and still have concerns, please contact you PCP's office right away. Indicated CDM patient and symptoms in the FYI box and sent alpha page to Virtualist to to contact the patient. END OUTREACH [facility] Miscellaneous Notes* Telephone Encounter - Amanda Cummins RN - 05/15/2022 10:35 AM EDT Pt called and is notified of providers results from 05/07/22 labs. Pt voices understanding. Amanda Cummins RN documented in this encounterWay[facility]-2022 Miscellaneous Notes* Telephone Encounter - Latisha Lemos RN - 05/13/2022 8:34 AM EDT Requested Prescriptions Pending Prescriptions Disp Refills apixaban (ELIQUIS) 5 mg tab(s) Sig: Take by mouth. amiodarone (PACERONE) 200 mg tablet Sig: Take 1 tablet by mouth. Pt called in requesting above refills. Pt name//pharmacy verified. documented in this encounterWay[facility]30-2022 History of Present illness Narrative* Radha Martines RN - 05/06/2022 10:58 AM EDT PRIMARY CARE COORDINATION QUICK NOTE Provider Action/JUAN Purvis this is Radha Martines RN your nurse Field Operations Manager. I am calling to provide you with a phone number to connect you with [facility] services. This number is available 7 days a week from 8am-8pm and provides you with one call access to nursing, appointments, and other valuable resources. I can also send this information to your Mendor. Please take the time to write this number [phone]. Sent Healthy at Home information via Mendor Patient identified by name and date . documented in this encounterWay[facility]08-29-2022 History of Present illness Narrative* Radha Martines RN - 05/05/2022 11:06 AM EDT INSIGHT CDM TELEPHONIC OUTREACH Provider Action/FYI: Contact made with patient: Yes Patient identified by name and . Discussed care with patient It s nice talking to you again. As a reminder, this is our bi-weekly check-in where I will be asking you questions about your health. This will only take a few minutes of your time. Is this a good time? Yes Symptoms What Chronic Disease(s) does the patient have: CKD Do you check your blood pressures at home? Yes, Enter readings: Up and down Does not have the readings as she is not at home. Checking 2 -3 times a day 116-130/ Seeing Cardiology 06-02-22 and will bring readings to that OV. Do you have new or worse shortness of breath with activity? No Do you feel like you are dehydrated for any reason, including not being able to eat or drink normally, or having less urine/much darker urine than normal for you? No Do you check your daily weight at home? Yes, Have you noticed a sudden gain in weight greater than three pounds in a day or three pounds in a week? No Are you having any other symptoms that your PCP needs to know about? No Symptom Escalation The patient required an escalation for symptom(s)? No Medications Do you have any questions about taking your medication or which medications you should be on? No Do you need any medication refills at this time, including any of the medications you might take only when needed? No Social We would like to make sure you have what you need so that your basic needs are met- including your personal safety, food, housing and medications? Would you like to speak with a social work team foreman to help give you support for any of these needs? No It can be normal to feel anxious or down during a time like this. Would you like to talk to a mental health professional about how you have been feeling? No Closing Thank you for taking the time to talk with me today. We want to work with you to ensure that we arekeeping your medical condition(s) well-controlled and to keep you healthy and out of the doctor's office or hospital. It s also not too late for me to sign you up for automated weekly questionnaires through MyChart. This is an easy way for us to stay connected each week. Are you interested? No, I understand. We can always sign you up in the future if you change your mind. Just as a reminder, will continue to call you every other week to check in on your health. Our calls should take 10-15 minutes or less. Remember, if you have concerns in between our calls, please call your PCP's office right away. Thank you. Enter next patient outreach date for two weeks on the same day of the week as today in the Track PtOutreach and End outreach. documented in this encounterWay[facility]08-24-2022 Miscellaneous Notes* Telephone Encounter - Lakshmi Das Ma - 04/30/2022 9:23 AM EDT Patient was notified Lakshmi Das Ma * Telephone Encounter - Mary Taylor APRN.CNP - 04/29/2022 7:08 PM EDT Can please let patient know that I received her labwork. Her blood count is stable, but her kidney function decreased some. Is she staying well hydrated. Please have patient return in 1-2 weeks to repeat labs well hydrated! Mary Taylor APRN.DANISH documented in this encounterWay[facility]08-24-2022 Evaluation note* Diagnosis Stage 3 chronic kidney disease, unspecified whether stage 3a or 3b CKD (HCC)- Primary documented [facility] encounter [facility] Miscellaneous Notes* Telephone Encounter - Genoveva Bosch - 04/21/2022 2:00 PM EDT Called PT LVM to call back and schedule follow up with cardio. Thanks * Telephone Encounter - Destiny Scott LPN - 04/21/2022 8:09 AM EDT Patient called. Verified name and date of . Patient would like to let Dr. Prakash know she [facility] 1820[facility] for A- Fib. Patient would like follow up appointment. Destiny Scott LPN documented in this encounterWay[facility]08-11-2022 Miscellaneous Notes* Telephone Encounter - Alison Sanchez RN - 04/17/2022 8:10 AM EDT Pt. notified. Voices understanding. States lightheadedness is not near as bad it was before. Pt waiting to get CPAP machine. Alison Sanchez RN * Telephone Encounter - Alison Sanchez RN - 04/17/2022 8:10 AM EDT ----- Message from Kori Palm APRN.CNP sent at 04/16/2022 3:29 PM EDT ----- Please call patient and notify her ultrasound was with mild carotid stenosis and does not explain lightheadedness. Thank you! documented in this encounterWay[facility]08-10-2022 Miscellaneous Notes* Result Encounter Note - Kori Palm APRN.CNP - 04/16/2022 3:29 PM EDT Please call patient and notify her ultrasound was with mild carotid stenosis and does not explain lightheadedness. Thank you! documented in this encounterWay[facility]08-05-2022 History of Present illness Narrative* Radha Martines RN - 04/11/2022 10:52 AM EDT INSIGHT CDM TELEPHONIC OUTREACH Provider Action/FYI: Denies needs or concerns at this time Contact made with patient: Yes Patient identified by name and . Discussed care with patient It s nice talking to you again. As a reminder, this is our bi-weekly check-in where I will be asking you questions about your health. This will only take a few minutes of your time. Is this a good time? Yes Symptoms What Chronic Disease(s) does the patient have: CKD Do you check your blood pressures at home? No Do you have new or worse shortness of breath with activity? No Do you feel like you are dehydrated for any reason, including not being able to eat or drink normally, or having less urine/much darker urine than normal for you? No Do you check your daily weight at home? Yes, Have you noticed a sudden gain in weight greater than three pounds in a day or three pounds in a week? No Are you having any other symptoms that your PCP needs to know about? No Symptom Escalation The patient required an escalation for symptom(s)? No Medications Do you have any questions about taking your medication or which medications you should be on? No Do you need any medication refills at this time, including any of the medications you might take only when needed? No Social We would like to make sure you have what you need so that your basic needs are met- including your personal safety, food, housing and medications? Would you like to speak with a social work team foreman to help give you support for any of these needs? No It can be normal to feel anxious or down during a time like this. Would you like to talk to a mental health professional about how you have been feeling? No Closing Thank you for taking the time to talk with me today. We want to work with you to ensure that we arekeeping your medical condition(s) well-controlled and to keep you healthy and out of the doctor's office or hospital. It s also not too late for me to sign you up for automated weekly questionnaires through Mendor. This is an easy way for us to stay connected each week. Are you interested? No, I understand. We can always sign you up in the future if you change your mind. Just as a reminder, will continue to call you every other week to check in on your health. Our calls should take 10-15 minutes or less. Remember, if you have concerns in between our calls, please call your PCP's office right away. Thank you. Enter next patient outreach date for two weeks on the same day of the week as today in the Track PtOutreach and End outreach. documented in this encounterWay[facility]08-[facility]-2022 History of Present illness Narrative* Radha Martines RN - 04/11/2022 10:41 AM EDT [facility] CDM Enrollment Provider Action/FYI: Agrees to Monthly Telephonic outreach for CDM [facility] ADLs / FALL /goal done Patient referred by: C Sidney Contact made with patient: Yes - Patient identified by name and . Discussed care with patient Hyun this is Radha Martines RN and I am calling from Norm Sharif MD office at the [facility]. I am a RN Field Operations Manager with our [facility] Chronic Disease Management program. Norm Sharif MD wanted me to reach out to help you manage your health at home. Our goal is to keep you well athome. We want to help you manage your chronic disease by providing a safety net of resources aroundyou, getting you the care you need in a timely manner, and hopefully keep you out of the ED and hospital. I will send you a few questions once a week through your Mendor account. It will automatically show up for you to complete. There are simple questions that will help us identify if you have any concerns or symptoms and I will call you to help get what you need. We will be able to connect you, review your symptoms, do an on demand visit, or communicate with Norm Sharif MD if needed. I am going to sign you up for the program now. Enrollment Questions: Let's get you enrolled in the program. Yes, Do you have regular access to a computer/smartphone? Yes. Goal Setting: I would like to take some time today to discuss your personal health goals. Yes, patient has goals. Capture the goal the patient wants to accomplish:have my hip and knee heal completely. Does the goal align with programs offered at the [facility]? No Patient accepts telephonic outreach Thank you for your time today. I am excited to work together in managing your health! I will check back within in two weeks to see how things are going. If questions or concerns arise between phone calls, please reach out to your PCP s office. (Place in active status for [facility] and place name in care team and update next patient outreach data to next business day two weeks from today s date) Most people know what to do to become healthier, yet struggle to put it into action on their own.Itcan be hard to maintain a healthy lifestyle, especially when life is so stressful. Can we connect you with a [facility] Live In Housekeeper Nanny to find a program that could help you meet your goals? No Closing: Patient accepts telephonic outreach Thank you for your time today. I am excited to work together inmanaging your health! I will check back within in two weeks to see how things are going. If questions or concerns arise between phone calls, please reach out to your PCP s office. (Place in active status for [facility] and place name in care team and update next patient outreach data to next d ay two weeks from today s date) documented in this encounterWay[facility]08-02-2022 Evaluation note* Diagnosis Stage 3 chronic kidney disease, unspecified whether stage 3a or 3b CKD (HCC)- Primary [facility] encounter [facility] Instructions* Patient Instructions* Kori Palm APRN.RN SURGERY - 03/31/2022 3:44 PM EDT Images from the original note were not included. CORONARY ARTERY DISEASE View image View image WHAT IS CORONARY ARTERY DISEASE? Coronary artery disease (CAD) is a type of heart disease caused by a problem with the blood vesselsthat bring blood and oxygen to the heart muscle. These arteries are called the coronary arteries. This disease increases your risk for heart attack and sudden . WHAT IS THE CAUSE? Fatty deposits called plaque may build up in blood vessels and make them narrower. The narrowing decreases the amount of blood flow to the heart. Plaque also increases the chance that blood clots mayform and block a blood vessel, which can cause a heart attack or stroke. Your risk for CAD may be higher if you: Have a family history of coronary artery disease at an early age Smoke Have high blood pressure Have diabetes Are very overweight Don t get enough exercise Have high levels of blood fat--for example, high cholesterol WHAT ARE THE SYMPTOMS? Coronary artery disease may not cause any symptoms. When there are symptoms, the most common one ischest pain, called angina. You may feel: A feeling of tightness or heaviness in the chest Squeezing, pressure, or burning in the chest Angina symptoms usually: Last for 5 minutes or less and go away with rest or medicine such as nitroglycerin. Happen when the heart has to work harder, such as after a heavy meal or during physical activity oremotional stress. Angina may also happen when you are resting. Call 911 for emergency help right away if you have symptoms of a heart attack. The most common symptoms include: Chest pain or pressure, squeezing, or fullness in the center of your chest that lasts more than a few minutes, or goes away and comes back (may feel like indigestion or heartburn) Pain or discomfort in one or both arms or shoulders, or in your back, neck, jaw, or stomach Trouble breathing Breaking out in a cold sweat for no known reason If your provider has prescribed nitroglycerin for angina, pain that does not go away after taking your nitroglycerin as directed Along with these symptoms, you may also feel very tired, faint, or be sick to your stomach. HOW IS IT DIAGNOSED? Your healthcare provider will ask about your symptoms and medical history and examine you. Tests may include: Blood tests An ECG (also called an EKG or electrocardiogram), which measures and records your heartbeat. An exercise treadmill test to see how your heart works when you exercise An echocardiogram, which uses sound waves (ultrasound) to see how well your heart is pumping Angiogram, which is a series of X-rays taken after your healthcare provider injects a special dye into your blood vessels to show the mustafa of the arteries and any blockage CT scan, which uses X-rays and a computer to show detailed pictures of the arteries HOW IS IT TREATED? Your treatment depends on many factors, such as your age, heart muscle function, and other health problems. At first, treatment may include diet changes and an exercise program. Your healthcare provider may prescribe medicine. Many people need to take 2 or more medicines to help prevent a heart attack or stroke. It may take several weeks or months to find the best treatment for you. Your provider may also prescribe other types of medicine to lower blood pressure, help stop chest pain, control an irregular heartbeat, help prevent blood clots, or lower blood fat (cholesterol). Your provider may recommend a daily low dose of aspirin. Taking an aspirin every day may lower yourrisk for a heart attack or stroke. Not everyone should take aspirin. Daily use of aspirin can causeproblems, such as stomach irritation, bleeding, and hearing loss. Ask your healthcare provider if you should take aspirin and if so, how much to take. If your coronary arteries are badly blocked, you may need balloon angioplasty or bypass surgery. A balloon angioplasty opens blocked blood vessels and improves blood flow. A metal mesh device called a stent is usually left in the blood vessels to help keep them open. Bypass surgery uses blood vessels from other parts of the body, or manmade material, to make a new path around a blocked area. HOW CAN I TAKE CARE OF MYSELF? CC If you have coronary artery disease, there are things you can do to take care of yourself now and prevent problems in the future. Follow your provider's advice about activity, exercise, medicine, and follow-up visits. Lower the amount of salt, saturated and trans fats, and cholesterol in your diet. Work with your healthcare provider to control diabetes, blood pressure, or other health problems you may have. Try to keep a healthy weight. If you are overweight, talk to your provider about ways to lose weight. If you smoke, try to quit. Talk to your healthcare provider about ways to quit smoking. Ask your healthcare provider: o How and when you will hear your test results o How long it will take to recover o What activities you should avoid and when you can return to your normal activities o How to take care of yourself at home o What symptoms or problems you should watch for and what to do if you have them Make sure you know when you should come back for a checkup. HOW CAN I HELP PREVENT CORONARY ARTERY DISEASE? You can prevent this disease with a heart-healthy lifestyle: Eat a healthy diet and keep a healthy weight. Stay fit with the right kind of exercise for you. Find ways to manage stress. Don t smoke. Limit your use of alcohol. Talk to your healthcare provider about your personal and family medical history and your lifestyle habits. This will help you know what you can do to lower your risk for coronary artery disease. If you have a strong family history of CAD, a healthy lifestyle may slow the start of the disease and maybe even keep you from getting it. However, you must have regular checkups to keep a close watch on the health of your heart. Developed by [employer]. Published by [employer]. Copyright 2014 [employer] and/or one of its subsidiaries. All rights reserved. documented in this encounterWay[facility]07-25-2022 History of Present illness Narrative* Kori Palm APRN.DANISH - 03/31/2022 3:30 PM EDT Chief Complaint Patient presents with: Established Patient History of Present Illness: Dayanara Gonzalez is a 81 year old female who presents for routine follow up. She has a PMhx of HTN,HLD. dizziness/near syncope, CAD (mild on recent left heart cath), palpitations, obesity. She is known to Dr. Prakash last seen in office on 01/27/2022. Underwent left heart cath on 02/14/2022 for further evaluation of nonsustained VT noted on monitor and work-up for near syncopal episodes. She is having less frequent lightheadedness episodes. She explains these are sudden with no associated symptoms, can happen at rest or with activity. Last episode was about 1 month ago. She had a sleep study done which was positive for CATHERINE. She is waiting for CPAP machine. We reviewed cardiac risk factors and modifications. She reports taking medications as prescribed no refills requested at this time. PAST MEDICAL HISTORY Diagnosis Date Generalized osteoarthrosis, unspecified site HTN (hypertension) Lung nodule repeat ct in spring, benign Other and unspecified hyperlipidemia PAST SURGICAL HISTORY Procedure Laterality Date COLONOSCOPY 08/26/2005 VJ - scattered tic EGD 08/26/2005 VJ - normal PAST SURGICAL HISTORY OF Right carpal tunnel on the right hand PAST SURGICAL HISTORY OF Right arthoscopy on the right knee PAST SURGICAL HISTORY OF Right 01/2016 ORIF right ankle, 2 small screws remain by Dr. Bedoya TOTAL HIP REPLACEMENT Left 07/17/2021 Left total hip arthroplasty TOTAL KNEE REPLACEMENT Right 12/25/2021 Right total knee replacement UNSPECIFIED ORAL SURGERY PROCEDURE, BY REPORT wisdom teeth removed. FAMILY HISTORY Problem Relation Age of Onset Heart Mother Hypertension Mother Hypertension Father Renal Disease Father Asthma No Family History COPD No Family History Social History Tobacco Use Smoking status: Former Smoker Packs/day: 0.50 Years: 20.00 Pack years: 10.00 Types: Cigarettes Quit date: 11/08/2000 Years since quittin.4 Smokeless tobacco: Never Used Tobacco comment: 2003 quit Vaping Use Vaping Use: Never used Substance Use Topics Alcohol use: No Drug use: No ALLERGIES Allergen Reactions Nsaids (Non-Steroid* Other: See Comments Pt. states has cautioned her not to use due to kidney disease [id number]-[id number] Red* Myalgia Medications: Current Outpatient Medications Medication Sig Dispense Refill CPAP Initiate Auto PAP @ 5-20 cm of water with humidification. Mask (per patient preference) optional chin strap (if indicated) , filters, tubing, humidifier and lifetime supplies. 1 Each 0 acetaminophen (TYLENOL) 500 mg tablet Take 2 tablets by mouth every 8 hours as needed for pain. 90 tablet 0 aspirin, enteric coated (ECOTRIN LOW STRENGTH) 81 mg EC tablet Take 1 tablet by mouth twice daily. 60 tablet 0 ezetimibe (ZETIA) 10 mg tablet Take 1 tablet by mouth once daily. 90 tablet 3 hydroCHLOROthiazide (HYDRODIURIL, ESIDRIX) 25 mg tablet Take 1 tablet by mouth once daily. 90 tablet 3 lisinopril (ZESTRIL, PRINIVIL) 40 mg tablet Take 1 tablet by mouth once daily. 90 tablet 3 metoprolol succinate ER (TOPROL XL) 100 mg Take 100 mg by mouth once daily. multivitamin tablet Take 1 tablet by mouth once daily. Current Facility-Administered Medications Medication Dose Route Frequency Provider Last Rate Last Admin perflutren lipid microspheres 1.3 mL in NaCl (PF) 0.9% 10 mL injection (DEFINITY) INTRAVENOUS DIRECTED PRN Reji Prakash MD sodium chloride 0.9 % (flush) 10 mL (BD POSIFLUSH) 10 mL INTRAVENOUS DIRECTED PRN Reji Prakash MD Review of Systems Constitutional: Negative for chills, diaphoresis, fever, malaise/fatigue and weight loss. HENT: Negative for congestion, ear pain, nosebleeds, sinus pain and sore throat. Eyes: Negative for pain. Respiratory: Negative for cough, shortness of breath and wheezing. Cardiovascular: Negative for chest pain, palpitations and leg swelling. Gastrointestinal: Negative for abdominal pain, blood in stool and melena. Genitourinary: Negative for hematuria. Musculoskeletal: Negative for falls. Neurological: Positive for dizziness. Negative for tingling, sensory change, speech change, focal weakness, loss of consciousness, weakness and headaches. Endo/Heme/Allergies: Does not bruise/bleed easily. Psychiatric/Behavioral: Negative for depression, memory loss and suicidal ideas. The patient is notnervous/anxious and does not have insomnia. Physical Examination: Vitals:BP 130/80 Pulse 60 Wt 231 lb (104.8kg) Last 2 Encounter Wt Readings: Date: Wt: 03/02/2022 233 lb 6.4 oz (105.9 kg) 02/20/2022 230 lb (104.3 kg) Physical Exam HENT: Head: Normocephalic. Eyes: Pupils: Pupils are equal, round, and reactive to light. Cardiovascular: Rate and Rhythm: Normal rate and regular rhythm. Pulses: Radial pulses are 2+ on the right side and 2+ on the left side. Dorsalis pedis pulses are 2+ on the right side and 2+ on the left side. Heart sounds: Normal heart sounds, S1 normal and S2 normal. Pulmonary: Effort: Pulmonary effort is normal. No accessory muscle usage or respiratory distress. Breath sounds: Normal breath sounds. Abdominal: General: Bowel sounds are normal. Palpations: Abdomen is soft. Musculoskeletal: General: Normal range of motion. Cervical back: Normal range of motion. Skin: General: Skin is warm and dry. Comments: Radial cath site healed Neurological: Mental Status: She is alert and oriented to person, place, and time. Gait: Gait is intact. Psychiatric: Mood and Affect: Affect normal. Cognition and Memory: Memory normal. Judgment: Judgment normal. Most Recent Cardiac Testing [facility] 02/14/2022 FINDINGS: Hemodynamics: LVEDP: 13 mmHg LV - AORTA: No gradient. Coronary Angiography: Left Main: Normal Left Anterior Descending: Large caliber vessel. The proximal vessel has mild diffuse <30% luminal narrowing. Circumflex: Large-caliber nondominant vessel with a large obtuse marginal branch which extends to the apical lateral wall. There is mild diffuse disease Right Coronary Artery: Large-caliber dominant vessel with mild diffuse disease Collaterals: None Echocardiogram 01/23/2022: - Technically difficult exam due to body habitus. - Exam indication: Palpitations - The left ventricle is normal in size. There is mild concentric left ventricular hypertrophy. Left ventricular systolic function is normal. EF = 65 5% (2D biplane) Indeterminate left ventricular diastolic dysfunction due to inconsistent or technically suboptimal data. - The right ventricle is normal in size. Right ventricular systolic function is normal. - The visualized aorta is borderline dilated with a maximal dimension of 3.8 cm. - Exam was compared with the prior CC echocardiographic exam performed on 04/16/2018, no significant change. Echocardiogram 04/16/2018 CONCLUSIONS: - Technically difficult exam due to body habitus. - Exam indication: Tachycardia - The left ventricle is normal in size. There is mild concentric left ventricular hypertrophy. Leftventricular systolic function is normal. EF = 62 5% (2D 4-ch.) Definity contrast used for endocardial border detection. Normal left ventricular diastolic function. - The right ventricle is normal in size. Right ventricular systolic function is normal. - There are no significant valvular abnormalities. - The patient has not had a prior CC echocardiographic exam for comparison. [employer] Monitor 01/06-01/20/22: Patient had a min HR of 52 bpm, max HR of 218 bpm, and avg HR of 70 bpm. Predominant underlying rhythm was Sinus Rhythm. 2 Ventricular Tachycardia runs occurred, the run with the fastest interval lasting 9 beats with a max rate of 218 bpm, the longest lasting 10 beats with an avg rate of 184 bpm. 88 Supraventricular Tachycardia runsoccurred, the run with the fastest interval lasting 9 beats with a max rate of 200 bpm, the longestlasting 15.8 secs with an avg rate of 115 bpm. Isolated SVEs were rare (<1.0%), SVE Couplets were rare (<1.0%), and SVE Triplets were rare (<1.0%). Isolated VEs were rare (<1.0%), VE Couplets were rare (<1.0%), and no VE Triplets were present. Assessment and Plan: CAD -mild non obstructive on [facility] 02/2022 -without symptoms concerning for angina -EF 62% -continue ASA, zetia, metoprolol -encouraged routine activity and heart healthy diet for risk factor modification NSVT -noted on monitor, ischemic evaluation with [facility] without significant CAD, asymptomatic -continue metoprolol Dizziness/near syncope -episodes with no other associated symptoms, last episode about a month ago -has completed echocardiogram, heart cath, monitor for further evaluation. Will also completed carotid US HTN -130/80 -Continue current medication(s) -Encouraged dietary sodium restriction/DASH diet -Recommended regular aerobic exercise. -Recommend home blood pressure monitoring, to bring results in on next visit -Discussed need and benefit for weight loss. -Goal of BP <130/80 HLD -lipid panel 10/2021 LDL 159 -continue zetia, statin allergy Obesity -lifestyle modifications -encouraged a heart healthy diet, routine exercise and weight loss CATHERINE -awaiting cpap mask Follow up with Dr. Prakash in 6 months. Patient to call with any issues or concerns prior to then. Electronically signed by Kori Palm APRN.CNP on March 31, 2022, 12:22 PM documented in this encounterWayne [facility]07-21-2022 Miscellaneous Notes* Telephone Encounter - Lakshmi Das Ma - 03/27/2022 10:30 AM EDT Spoke to patient who says [employer] is in network. Faxed all documents Lakshmi Das Ma * Telephone Encounter - Nona Webb LPN - 03/24/2022 1:39 PM EDT Patient notified will let office know where to send DME order. * Telephone Encounter - Norm Sharif MD - 03/24/2022 11:46 AM EDT Sleep study shows sleep apnea. Get autopap set up and follow up with sleep med after. documented in this encounterWayne Healthcare Main Campus07-14-2022 History of Present illness Narrative* Delfina Mcclure PSS - 03/20/2022 3:45 PM EDT Sleep Study Check-In Documentation Date: March 20, 2022 Name: Dayanara Gonzalez Comments: HST was returned in working order with all sleep questionnaires Delfina Mcclure PSS * Hayley Genoveva - 03/17/2022 9:33 AM EDT [facility]# [id number] Mail out date:03/17/22 [employer] Shipping #:[id number] [employer] Return #:[id number] * Jorge Garduno III, PhD - 03/04/2022 5:32 PM EDT March 04, 2022 Standing PSG Orders signed in the last 90 days None Future PSG Orders signed in the last 90 days Ordered Auth. provider HOME SLEEP APNEA TEST (HSAT) [[id number]] 02/20/22 Norm Sharif MD Assoc. diagnoses: CATHERINE (obstructive sleep apnea) [G47.33] Q: Indications: A: Obstructive sleep apnea Q: STOP-BANG conditions - Select All That Apply: A: BMI > 35 kg/m2 A2: AGE > 50 A3: high blood PRESSURE A4: TIREDNESS, fatigue or sleepiness during the day Q: Current use of supplemental oxygen during sleep period?: A: No All Prior Sleep Studies (past 365 days) Some values may be hidden. Unless noted otherwise, only the newest values recorded on each date aredisplayed. Sleep Studies HOME SLEEP APNEA TEST (HSAT) Future Expected: Expires: 02/20/23 BMI Readings from Last 2 Encounters: 03/02/22 : 41.34 kg/m 02/20/22 : 40.74 kg/m PAST MEDICAL HISTORY Diagnosis Date Generalized osteoarthrosis, unspecified site HTN (hypertension) Lung nodule repeat ct in spring, benign Other and unspecified hyperlipidemia The medical record was reviewed to determine if the proposed sleep study conforms to the [facility] Practice Parameters for the Indications for Polysomnography and Related Procedures, or if the sleep studyis indicated for other reasons. Indications for study: CATHERINE suspected with comorbid medical or sleep disorders: Morbid obesity (BMI>40 kg/m2) Sleep study to be performed: Home Sleep Apnea Test (HSAT) Special instructions: None-follow laboratory protocol Samson Babak RasheedIsaac [facility] Staff Note: I have read the above protocol, edited as needed, and agree to the plan. Jorge Garduno III, PhD 7:48 AM, 03/05/2022 * Amanda Bills - 03/03/2022 8:50 AM EDT March 03, 2022 An order has been received for Home Sleep Apnea Test (HSAT) from Dr. Norm Sharif MD, a B. [facility] Staff. Visit prep complete. Comments :No The sleep study is scheduled for 03/18/2022. Insurance: Payor: [employer] MEDICARE / Plan: [employer] MEDICARE PPO / Product Type: PPO / Payor/Plan Subscr Sex Relation Sub. Ins. ID Effective Group Num 1. [employer] MEDICA* JINGDAYANARA M 1940 Female Self [id number] 05[birth year] [id number] [address] [address] Amanda Bills documented in this encounterWayne Healthcare [facility] Campus07-05-2022 Miscellaneous Notes* Telephone Encounter - Balbina Fuller RN - 03/11/2022 4:13 PM EDT Xrays done 03-07-2022. * Telephone Encounter - Dayanna Hernández Ma - 03/03/2022 10:57 AM EDT Patient notified and will come in to have x-ray done. * Telephone Encounter - Micheline Rodriguez PA-C - 03/03/2022 10:19 AM EDT Yes, xrays of the knee please. Order entered. * Telephone Encounter - Dayanna Hernández Ma - 03/03/2022 8:50 AM EDT Patient calling and states she was seen at [facility] yesterday landing on her right shoulder and right knee. States they did no x-rays on her knee and is concerned since this is her kneeshe had a TKA on 12/25/21. Scheduled appointment for next week on 03/13. Do you want her to have an x-ray done on her knee? She is concerned since this is the 2nd time she has fallen on cement landing on that knee? documented in this encounterWayne Healthcare [facility] Campus07-01-2022 History of Present illness Narrative* Monica Gonzalez, RT(R) - 03/07/2022 9:40 AM EDT Radiology Service Progress Note PATIENT NAME: Dayanara Gonzalez DATE OF SERVICE: March 07, 2022 TIME: 9:49 AM PATIENT IDENTITY VERIFICATION COMPLETED USING TWO (2) IDENTIFIERS: Name and Date of confirmedby patient verbally. FALL SCREENING: Has the patient had 2 falls in the last year or 1 fall with injury or currently using an Ambulatory Assistive Device (Walker, Cane, Wheelchair, Crutches, etc.)? Yes, Patient High Riskfor Falls What interventions were put in place to prevent falls during this visit? Instructed Patient to Callfor Help if Needed, Offered Assistance with Transfers/Clothing, Instructed Patient to Remain Seated(Not on Exam Table) Until Exam, Increased Observations by Caregivers and Patient Refused Interventio ns/Assistance PATIENT GENDER DATA: Female. status: : No status: NO. PATIENT RELEVANT IMPLANT DATA REVIEWED: Not Applicable RADIOLOGY DEPARTMENT: General X-ray: Exam(s) Completed: Lower Extremity X- Ray(s): Knee, AP / Lat / Tunne / Merchant Right and Wt. Bearing PERIPHERAL IV DATA: Not applicable SIGNED BY: RT Toney(R) March 07, 2022 9:49 AM documented in this encounterWayne Healthcare Main Campus06-26-2022 History of Present illness Narrative* Charles Glez APRN.CNP - 03/02/2022 1:18 PM EDT Nontoxic-appearing female presents urgent care accompanied by daughter. Chief complaint fall. Duration of symptoms today. Associated symptoms right knee right hip right elbow and hand pain. Patient states she fell earlier today on concrete. Denies any head neck back pain LOC. States most bothersomesymptom is right hand pain. Patient does have lacerations over the lateral aspect of right hand andfifth digit. Patient has significant swelling and bruising over this area. With the ability of not being able to have imaging today I recommended patient be seen in ED for further evaluation care. Patient verbalized understanding agrees with plan of care. [facility] be [facility]. Charles Glez APRN.DANISH documented in this encounterWayne Healthcare [facility] Campus06-16-2022 History of Present illness Narrative* Norm Sharif MD - 02/20/2022 10:43 AM EDT Patient presents with: 6 Month Exam HPI: Patient presents today for office visit for follow up. Saw podiatry for neuroma. Still with some pain Had knee surgery. Very pleased with results. Doing well. Now seeing Dr. Prakash. Had echo. Had zio that showed two short runs of v tach. They performed heart cath. Results: Impression: Mild diffuse coronary artery disease isolated to the proximal LAD. Right coronary dominant system. Normal left ventricular end-diastolic pressure Recommended Treatment: Medical Therapy. Plan: Medical therapy Possible referral to Pulmonary medicine for evaluation of CATHERINE Overall doing well. bp is well controlled. No chest pain Still with some shortness of breath. Has seen pulmonary in 2020. Did not feel further imaging was needed. pft's were normal. Page it was related to weight and deconditioning. Unsure if snoring. Does not sleep well. Does not feel refreshed on awakening. Feels well on zetia. Component Latest Ref Rng & Units 12/09/2021 WBC 3.70 - 11.00 k/uL 9.73 RBC 3.90 - 5.20 m/uL 4.28 Hemoglobin 11.5 - 15.5 g/dL 12.9 Hematocrit 36.0 - 46.0 % 38.6 MCV 80.0 - 100.0 fL 90.2 MCH 26.0 - 34.0 pg 30.1 MCHC 30.5 - 36.0 g/dL 33.4 RDW-CV 11.5 - 15.0 % 12.7 Platelet Count 150 - 400 k/uL 292 MPV 9.0 - 12.7 fL 10.7 Neut% % 66.9 Abs Neut (ANC) 1.45 - 7.50 k/uL 6.50 Lymph% % 19.9 Abs Lymph 1.00 - 4.00 k/uL 1.94 Yazoo% % 10.9 Abs [place] <0.87 k/uL 1.06 (H) Eosin% % 1.8 Abs Eosin <0.46 k/uL 0.18 Baso% % 0.3 Abs Baso <0.11 k/uL 0.03 Immature Gran % % 0.2 IMMATURE GRANS (ABS) <0.10 k/uL <0.03 NRBC /100 WBC 0.0 Absolute nRBC <0.01 k/uL <0.01 DTYPE Auto Protein, Total 6.3 - 8.0 g/dL 6.9 Albumin 3.9 - 4.9 g/dL 4.3 Calcium 8.5 - 10.2 mg/dL 9.4 Bilirubin, Total 0.2 - 1.3 mg/dL 0.2 Alkaline Phosphatase 34 - 123 U/L 64 AST 13 - 35 U/L 22 ALT 7 - 38 U/L 12 Glucose 74 - 99 mg/dL 73 (L) BUN 7 - 21 mg/dL 20 Creatinine 0.58 - 0.96 mg/dL 0.86 Sodium 136 - 144 mmol/L 139 Potassium 3.7 - 5.1 mmol/L 4.2 Chloride 97 - 105 mmol/L 102 CO2 22 - 30 mmol/L 30 Anion Gap 9 - 18 mmol/L 7 (L) eGFR >=60 mL/min/1.73m 68 Iron 41 - 186 ug/dL 63 TIBC 232 - 386 ug/dL 289 Transferrin Saturation 15 - 57 % 22 Ferritin 14.7 - 205.1 ng/mL 209.0 (H) Component Latest Ref Rng & Units 02/04/2022 WBC 3.70 - 11.00 k/uL 8.45 RBC 3.90 - 5.20 m/uL 3.81 (L) Hemoglobin 11.5 - 15.5 g/dL 11.3 (L) Hematocrit 36.0 - 46.0 % 35.8 (L) MCV 80.0 - 100.0 fL 94.0 MCH 26.0 - 34.0 pg 29.7 MCHC 30.5 - 36.0 g/dL 31.6 RDW-CV 11.5 - 15.0 % 13.3 Platelet Count 150 - 400 k/uL 293 MPV 9.0 - 12.7 fL 10.5 Absolute nRBC <0.01 k/uL <0.01 Glucose 74 - 99 mg/dL 90 BUN 7 - 21 mg/dL 22 (H) Creatinine 0.58 - 0.96 mg/dL 0.97 (H) Sodium 136 - 144 mmol/L 139 Potassium 3.7 - 5.1 mmol/L 4.4 Chloride 97 - 105 mmol/L 102 CO2 22 - 30 mmol/L 24 Anion Gap 9 - 18 mmol/L 13 Calcium 8.5 - 10.2 mg/dL 9.7 eGFR >=60 mL/min/1.73m 59 (L) Last labs are post op MEDICATIONS: Current Outpatient Medications Medication Sig aspirin, enteric coated (ECOTRIN LOW STRENGTH) 81 mg EC tablet Take 1 tablet by mouth twice daily. ezetimibe (ZETIA) 10 mg tablet Take 1 tablet by mouth once daily. hydroCHLOROthiazide (HYDRODIURIL, ESIDRIX) 25 mg tablet Take 1 tablet by mouth once daily. lisinopril (ZESTRIL, PRINIVIL) 40 mg tablet Take 1 tablet by mouth once daily. metoprolol succinate ER (TOPROL XL) 100 mg Take 100 mg by mouth once daily. multivitamin tablet Take 1 tablet by mouth once daily. acetaminophen (TYLENOL) 500 mg tablet Take 2 tablets by mouth every 8 hours as needed for pain. Current Facility-Administered Medications Medication Dose Route Frequency perflutren lipid microspheres 1.3 mL in NaCl (PF) 0.9% 10 mL injection (DEFINITY) INTRAVENOUS DIRECTED PRN sodium chloride 0.9 % (flush) 10 mL (BD POSIFLUSH) 10 mL INTRAVENOUS DIRECTED PRN ALLERGIES: ALLERGIES Allergen Reactions Nsaids (Non-Steroid* Other: See Comments Pt. states has cautioned her not to use due to kidney disease Egkshyf-Xma-Srs Red* Myalgia PAST MEDICAL HISTORY Diagnosis Date Generalized osteoarthrosis, unspecified site HTN (hypertension) Lung nodule repeat ct in spring, benign Other and unspecified hyperlipidemia PAST SURGICAL HISTORY Procedure Laterality Date COLONOSCOPY 08/26/2005 VJ - scattered tic EGD 08/26/2005 VJ - normal PAST SURGICAL HISTORY OF Right carpal tunnel on the right hand PAST SURGICAL HISTORY OF Right arthoscopy on the right knee PAST SURGICAL HISTORY OF Right 01/2016 ORIF right ankle, 2 small screws remain by Dr. Bedoya TOTAL HIP REPLACEMENT Left 07/17/2021 Left total hip arthroplasty TOTAL KNEE REPLACEMENT Right 12/25/2021 Right total knee replacement UNSPECIFIED ORAL SURGERY PROCEDURE, BY REPORT wisdom teeth removed. FAMILY HISTORY Problem Relation Age of Onset Heart Mother Hypertension Mother Hypertension Father Renal Disease Father Asthma No Family History COPD No Family History Social History Tobacco Use Smoking status: Former Smoker Packs/day: 0.50 Years: 20.00 Pack years: 10.00 Types: Cigarettes Quit date: 11/08/2000 Years since quittin.2 Smokeless tobacco: Never Used Tobacco comment: 2003 quit Vaping Use Vaping Use: Never used Substance Use Topics Alcohol use: No Drug use: No Reviewed current medications, allergies, past medical history, surgical history, family history andsocial history today. REVIEW OF SYSTEMS All other reviewed and negative other than HPI. HEALTH MAINTENANCE: Reviewed health maintenance issues today and recommended the following in detail. SHINGRIX VACCINE(1 of 2) Never done ADVANCE DIRECTIVE DISCUSSION -daughter and son are surrogates on dpoa and living well. COVID-19 VACCINE(3 - Booster for Pfizer series) - DEPRESSION SCREENING - Depression Screening 07/28/2017 11/23/2018 11/01/2020 02/20/2022 PHQ-2 Score 0 0 0 0 Depression screening tool completed and reviewed. Based on score and interview, patient is not at risk for depression. Screening tool discussed with patient, and I recommended no further interventionat this time. VITALS: BP 122/82 Pulse 64 Wt 104.3 kg (230 lb) BMI 40.74 kg/m Last 4 Encounter Wt Readings: Date: Wt: 02/20/2022 104.3 kg (230 lb) 01/27/2022 104.7 kg (230 lb 12.8 oz) 01/27/2022 104.3 kg (230 lb) 12/16/2021 106.6 kg (235 lb) PHYSICAL EXAMINATION: General appearance: Well appearing, alert, in no acute distress, well-hydrated, well nourished. Skin: Skin color, texture, turgor normal, no suspicious rashes or lesions Lungs: Lungs clear to auscultation. No wheezing, rhonchi, rales Heart: RRR without murmur, gallop, or rubs. No ectopy Abdomen: Normal abdominal exam, Abdomen soft, non-tender. Bowel sounds normal. No masses, organomegaly Extremities: No deformities, edema, skin discoloration, clubbing or cyanosis. Good capillary refill. Musculoskeletal: No joint swelling, deformity, or tenderness Peripheral pulses: Normal Neuro: Negative. Using a cane ASSESSMENT/PLAN: 1. Atrial tachycardia (HCC) - ICD9: 427.89, ICD10: I47.1 (primary diagnosis) - stable. Continue per cardiology. 2. Ventricular tachycardia, nonsustained (HCC) - ICD9: 427.1, ICD10: I47.2 - doing well. Per cardio 3. Essential hypertension, benign - ICD9: 401.1, ICD10: I10 - good control - Continue current medication(s) - Goal of BP <130/80 - CBC + DIFF 4. Mixed hyperlipidemia - ICD9: 272.2, ICD10: E78.2 - to be determined upon return of lab results - Continue current medication. - Encouraged following a low fat, low cholesterol diet. - COMP METABOLIC PANEL - LIPID PANEL BASIC 5. Dyspnea on exertion - ICD9: 786.09, ICD10: R06.00 - has had negative cardiac and pulmonary work up. Work on exercise and weight. 6. Stage 3 chronic kidney disease, unspecified whether stage 3a or 3b CKD (HCC) - ICD9: 585.3, ICD10: N18.30 - will follow 7. CATHERINE (obstructive sleep apnea) - ICD9: 327.23, ICD10: G47.33 - HOME SLEEP APNEA TEST (HSAT) 8. Mild CAD - ICD9: 414.00, ICD10: I25.10 - continue meds. Norm Sharif RTO in six months and prn. documented in this encounterWayne Healthcare [facility] Campus06-10-2022 History of Past illness Narrative* Problem Noted Date Resolved Date Dyspnea on exertion 02/14/2022 12/17/2022 Atrial fibrillation, persistent 01/27/2022 01/27/2022 Lightheaded 01/05/2020 12/17/2022 Dizziness and giddiness 09/30/2013 05/26/20 16 Neoplasm of uncertain behavior of skin 0 01/29/2012 Disturbance of Skin Sensation: tenderness//pain 06/27/2010 01/29/2012 Urticaria 12/12/2009 01/29/2012 Overview: Spontaneous, episodic, lasting about an hour per episode -- started documented as of this encounter (statuses as of 12/18/2022) [facility] of Past illness Narrative* Problem Noted Date Resolved Date Dyspnea on exertion 02/14/2022 12/17/2022 Atrial fibrillation, persistent 01/27/2022 01/27/2022 Lightheaded 01/05/2020 12/17/2022 Dizziness and giddiness 09/30/2013 05/26/20 16 Neoplasm of uncertain behavior of skin 0 01/29/2012 Disturbance of Skin Sensation: tenderness//pain 06/27/2010 01/29/2012 Urticaria 12/12/2009 01/29/2012 Overview: Spontaneous, episodic, lasting about an hour per episode -- started documented as of this encounter (statuses as of 12/26/2022) [facility] of Past illness Narrative* Problem Noted Date Resolved Date Dyspnea on exertion 02/14/2022 12/17/2022 Atrial fibrillation, persistent 01/27/2022 01/27/2022 Lightheaded 01/05/2020 12/17/2022 Dizziness and giddiness 09/30/2013 05/26/20 16 Neoplasm of uncertain behavior of skin 0 01/29/2012 Disturbance of Skin Sensation: tenderness//pain 06/27/2010 01/29/2012 Urticaria 12/12/2009 01/29/2012 Overview: Spontaneous, episodic, lasting about an hour per episode -- started documented as of this encounter (statuses as of 12/31/2022) [facility] of Past illness Narrative* Problem Noted Date Resolved Date Dyspnea on exertion 02/14/2022 12/17/2022 Atrial fibrillation, persistent 01/27/2022 01/27/2022 Lightheaded 01/05/2020 12/17/2022 Dizziness and giddiness 09/30/2013 05/26/20 16 Neoplasm of uncertain behavior of skin 0 01/29/2012 Disturbance of Skin Sensation: tenderness//pain 06/27/2010 01/29/2012 Urticaria 12/12/2009 01/29/2012 Overview: Spontaneous, episodic, lasting about an hour per episode -- started documented as of this encounter (statuses as of 01/10/2023) [facility] of Past illness Narrative* Problem Noted Date Resolved Date Dyspnea on exertion 02/14/2022 12/17/2022 Atrial fibrillation, persistent 01/27/2022 01/27/2022 Lightheaded 01/05/2020 12/17/2022 Dizziness and giddiness 09/30/2013 05/26/20 16 Neoplasm of uncertain behavior of skin 0 01/29/2012 Disturbance of Skin Sensation: tenderness//pain 06/27/2010 01/29/2012 Urticaria 12/12/2009 01/29/2012 Overview: Spontaneous, episodic, lasting about an hour per episode -- started documented as of this encounter (statuses as of 01/12/2023) [facility] of Past illness Narrative* Problem Noted Date Resolved Date Dyspnea on exertion 02/14/2022 12/17/2022 Atrial fibrillation, persistent 01/27/2022 01/27/2022 Lightheaded 01/05/2020 12/17/2022 Dizziness and giddiness 09/30/2013 05/26/20 16 Neoplasm of uncertain behavior of skin 0 01/29/2012 Disturbance of Skin Sensation: tenderness//pain 06/27/2010 01/29/2012 Urticaria 12/12/2009 01/29/2012 Overview: Spontaneous, episodic, lasting about an hour per episode -- started documented as of this encounter (statuses as of 01/27/2023) [facility] of Past illness Narrative* Problem Noted Date Resolved Date Dyspnea on exertion 02/14/2022 12/17/2022 Atrial fibrillation, persistent 01/27/2022 01/27/2022 Lightheaded 01/05/2020 12/17/2022 Dizziness and giddiness 09/30/2013 05/26/20 16 Neoplasm of uncertain behavior of skin 0 01/29/2012 Disturbance of Skin Sensation: tenderness//pain 06/27/2010 01/29/2012 Urticaria 12/12/2009 01/29/2012 Overview: Spontaneous, episodic, lasting about an hour per episode -- started documented as of this encounter (statuses as of 02/09/2023) [facility] of Past illness Narrative* Problem Noted Date Resolved Date Dyspnea on exertion 02/14/2022 12/17/2022 Atrial fibrillation, persistent 01/27/2022 01/27/2022 Lightheaded 01/05/2020 12/17/2022 Dizziness and giddiness 09/30/2013 05/26/20 16 Neoplasm of uncertain behavior of skin 0 01/29/2012 Disturbance of Skin Sensation: tenderness//pain 06/27/2010 01/29/2012 Urticaria 12/12/2009 01/29/2012 Overview: Spontaneous, episodic, lasting about an hour per episode -- started documented as of this encounter (statuses as of 02/10/2023) [facility] of Past illness Narrative* Problem Noted Date Resolved Date Dyspnea on exertion 02/14/2022 12/17/2022 Atrial fibrillation, persistent 01/27/2022 01/27/2022 Lightheaded 01/05/2020 12/17/2022 Dizziness and giddiness 09/30/2013 05/26/20 16 Neoplasm of uncertain behavior of skin 0 01/29/2012 Disturbance of Skin Sensation: tenderness//pain 06/27/2010 01/29/2012 Urticaria 12/12/2009 01/29/2012 Overview: Spontaneous, episodic, lasting about an hour per episode -- started documented as of this encounter (statuses as of 02/19/2023) [facility] History of Past illness Narrative* Problem Noted Date Resolved Date Dyspnea on exertion 02/14/2022 12/17/2022 Atrial fibrillation, persistent 01/27/2022 01/27/2022 Lightheaded 01/05/2020 12/17/2022 Dizziness and giddiness 09/30/2013 05/26/20 16 Neoplasm of uncertain behavior of skin 0 01/29/2012 Disturbance of Skin Sensation: tenderness//pain 06/27/2010 01/29/2012 Urticaria 12/12/2009 01/29/2012 Overview: Spontaneous, episodic, lasting about an hour per episode -- started documented as of this encounter (statuses as of 03/02/2023) [facility] History of Past illness Narrative* Problem Noted Date Resolved Date Dyspnea on exertion 02/14/2022 12/17/2022 Atrial fibrillation, persistent 01/27/2022 01/27/2022 Lightheaded 01/05/2020 12/17/2022 Dizziness and giddiness 09/30/2013 05/26/20 16 Neoplasm of uncertain behavior of skin 0 01/29/2012 Disturbance of Skin Sensation: tenderness//pain 06/27/2010 01/29/2012 Urticaria 12/12/2009 01/29/2012 Overview: Spontaneous, episodic, lasting about an hour per episode -- started documented as of this encounter (statuses as of 03/04/2023) [facility] History of Past illness Narrative* Problem Noted Date Resolved Date Dyspnea on exertion 02/14/2022 12/17/2022 Atrial fibrillation, persistent 01/27/2022 01/27/2022 Lightheaded 01/05/2020 12/17/2022 Dizziness and giddiness 09/30/2013 05/26/20 16 Neoplasm of uncertain behavior of skin 0 01/29/2012 Disturbance of Skin Sensation: tenderness//pain 06/27/2010 01/29/2012 Urticaria 12/12/2009 01/29/2012 Overview: Spontaneous, episodic, lasting about an hour per episode -- started documented as of this encounter (statuses as of 03/05/2023) [facility] History of Past illness Narrative* Problem Noted Date Diagnosed Date Resolved Date Dyspnea on exertion 02/14/2022 12/18/19 23 Atrial fibrillation, persistent 01/27/2022 01/27/2022 Lightheaded 01/05/2020 12/17/2022 Dizziness and giddiness 09/30/201305/08 Neoplasm of uncertain behavior of skin 06/27/2010 01/29/2012 Disturbance of Skin Sensatio n: tenderness//pain 06/27/2010 01/29/2012 Urticaria 12/12/2009 01/29/2012 Overview: Spontaneous, episodic, lasting about an hour per episode -- started documented as of this encounter (statuses as of 03/26/2023) [facility] History of Past illness Narrative* Problem Noted Date Diagnosed Date Resolved Date Dyspnea on exertion 02/14/2022 12/18/19 23 Atrial fibrillation, persistent 01/27/2022 01/27/2022 Lightheaded 01/05/2020 12/17/2022 Dizziness and giddiness 09/30/201305/08 Neoplasm of uncertain behavior of skin 06/27/2010 01/29/2012 Disturbance of Skin Sensatio n: tenderness//pain 06/27/2010 01/29/2012 Urticaria 12/12/2009 01/29/2012 Overview: Spontaneous, episodic, lasting about an hour per episode -- started documented as of this encounter (statuses as of 04/01/2023) [facility] History of Past illness Narrative* Problem Noted Date Diagnosed Date Resolved Date Dyspnea on exertion 02/14/2022 12/18/19 23 Atrial fibrillation, persistent 01/27/2022 01/27/2022 Lightheaded 01/05/2020 12/17/2022 Dizziness and giddiness 09/30/201305/08 Neoplasm of uncertain behavior of skin 06/27/2010 01/29/2012 Disturbance of Skin Sensatio n: tenderness//pain 06/27/2010 01/29/2012 Urticaria 12/12/2009 01/29/2012 Overview: Spontaneous, episodic, lasting about an hour per episode -- started documented as of this encounter (statuses as of 04/02/2023) [facility] History of Past illness Narrative* Problem Noted Date Diagnosed Date Resolved Date Dyspnea on exertion 02/14/2022 12/18/19 23 Atrial fibrillation, persistent 01/27/2022 01/27/2022 Lightheaded 01/05/2020 12/17/2022 Dizziness and giddiness 09/30/201305/08 Neoplasm of uncertain behavior of skin 06/27/2010 01/29/2012 Disturbance of Skin Sensatio n: tenderness//pain 06/27/2010 01/29/2012 Urticaria 12/12/2009 01/29/2012 Overview: Spontaneous, episodic, lasting about an hour per episode -- started documented as of this encounter (statuses as of 05/29/2023) [facility] History of Past illness Narrative* Problem Noted Date Diagnosed Date Resolved Date Dyspnea on exertion 02/14/2022 12/18/19 23 Atrial fibrillation, persistent 01/27/2022 01/27/2022 Lightheaded 01/05/2020 12/17/2022 Dizziness and giddiness 09/30/201305/08 Neoplasm of uncertain behavior of skin 06/27/2010 01/29/2012 Disturbance of Skin Sensatio n: tenderness//pain 06/27/2010 01/29/2012 Urticaria 12/12/2009 01/29/2012 Overview: Spontaneous, episodic, lasting about an hour per episode -- started documented as of this encounter (statuses as of 06/22/2023) [facility] History of Past illness Narrative* Problem Noted Date Diagnosed Date Resolved Date Dyspnea on exertion 02/14/2022 12/18/19 23 Atrial fibrillation, persistent 01/27/2022 01/27/2022 Lightheaded 01/05/2020 12/17/2022 Dizziness and giddiness 09/30/201305/08 Neoplasm of uncertain behavior of skin 06/27/2010 01/29/2012 Disturbance of Skin Sensatio n: tenderness//pain 06/27/2010 01/29/2012 Urticaria 12/12/2009 01/29/2012 Overview: Spontaneous, episodic, lasting about an hour per episode -- started documented as of this encounter (statuses as of 06/23/2023) [facility] History of Past illness Narrative* Problem Noted Date Diagnosed Date Resolved Date Dyspnea on exertion 02/14/2022 12/18/19 23 Atrial fibrillation, persistent 01/27/2022 01/27/2022 Lightheaded 01/05/2020 12/17/2022 Dizziness and giddiness 09/30/201305/08 Neoplasm of uncertain behavior of skin 06/27/2010 01/29/2012 Disturbance of Skin Sensatio n: tenderness//pain 06/27/2010 01/29/2012 Urticaria 12/12/2009 01/29/2012 Overview: Spontaneous, episodic, lasting about an hour per episode -- started documented as of this encounter (statuses as of 06/24/2023) [facility] History of Past illness Narrative* Problem Noted Date Diagnosed Date Resolved Date Dyspnea on exertion 02/14/2022 12/18/19 23 Atrial fibrillation, persistent 01/27/2022 01/27/2022 Lightheaded 01/05/2020 12/17/2022 Dizziness and giddiness 09/30/201305/08 Neoplasm of uncertain behavior of skin 06/27/2010 01/29/2012 Disturbance of Skin Sensatio n: tenderness//pain 06/27/2010 01/29/2012 Urticaria 12/12/2009 01/29/2012 Overview: Spontaneous, episodic, lasting about an hour per episode -- started documented as of this encounter (statuses as of 06/25/2023) [facility] History of Past illness Narrative* Problem Noted Date Diagnosed Date Resolved Date Dyspnea on exertion 02/14/2022 12/18/19 23 Atrial fibrillation, persistent 01/27/2022 01/27/2022 Lightheaded 01/05/2020 12/17/2022 Dizziness and giddiness 09/30/201305/08 Neoplasm of uncertain behavior of skin 06/27/2010 01/29/2012 Disturbance of Skin Sensatio n: tenderness//pain 06/27/2010 01/29/2012 Urticaria 12/12/2009 01/29/2012 Overview: Spontaneous, episodic, lasting about an hour per episode -- started documented as of this encounter (statuses as of 06/26/2023) [facility] History of Past illness Narrative* Problem Noted Date Diagnosed Date Resolved Date Dyspnea on exertion 02/14/2022 12/18/19 23 Atrial fibrillation, persistent 01/27/2022 01/27/2022 Lightheaded 01/05/2020 12/17/2022 Dizziness and giddiness 09/30/201305/08 Neoplasm of uncertain behavior of skin 06/27/2010 01/29/2012 Disturbance of Skin Sensatio n: tenderness//pain 06/27/2010 01/29/2012 Urticaria 12/12/2009 01/29/2012 Overview: Spontaneous, episodic, lasting about an hour per episode -- started documented as of this encounter (statuses as of 07/07/2023) [facility] History of Past illness Narrative* Problem Noted Date Diagnosed Date Resolved Date Dyspnea on exertion 02/14/2022 12/18/19 23 Atrial fibrillation, persistent 01/27/2022 01/27/2022 Lightheaded 01/05/2020 12/17/2022 Dizziness and giddiness 09/30/201305/08 Neoplasm of uncertain behavior of skin 06/27/2010 01/29/2012 Disturbance of Skin Sensatio n: tenderness//pain 06/27/2010 01/29/2012 Urticaria 12/12/2009 01/29/2012 Overview: Spontaneous, episodic, lasting about an hour per episode -- started documented as of this encounter (statuses as of 07/08/2023) [facility] History of Past illness Narrative* Problem Noted Date Diagnosed Date Resolved Date Dyspnea on exertion 02/14/2022 12/18/19 23 Atrial fibrillation, persistent 01/27/2022 01/27/2022 Lightheaded 01/05/2020 12/17/2022 Dizziness and giddiness 09/30/201305/08 Neoplasm of uncertain behavior of skin 06/27/2010 01/29/2012 Disturbance of Skin Sensatio n: tenderness//pain 06/27/2010 01/29/2012 Urticaria 12/12/2009 01/29/2012 Overview: Spontaneous, episodic, lasting about an hour per episode -- started documented as of this encounter (statuses as of 07/12/2023) [facility] History of Past illness Narrative* Problem Noted Date Diagnosed Date Resolved Date Dyspnea on exertion 02/14/2022 12/18/19 23 Atrial fibrillation, persistent 01/27/2022 01/27/2022 Lightheaded 01/05/2020 12/17/2022 Dizziness and giddiness 09/30/201305/08 Neoplasm of uncertain behavior of skin 06/27/2010 01/29/2012 Disturbance of Skin Sensatio n: tenderness//pain 06/27/2010 01/29/2012 Urticaria 12/12/2009 01/29/2012 Overview: Spontaneous, episodic, lasting about an hour per episode -- started documented as of this encounter (statuses as of 07/25/2023) [facility] History of Past illness Narrative* Problem Noted Date Diagnosed Date Resolved Date Dyspnea on exertion 02/14/2022 12/18/19 23 Atrial fibrillation, persistent 01/27/2022 01/27/2022 Lightheaded 01/05/2020 12/17/2022 Dizziness and giddiness 09/30/201305/08 Neoplasm of uncertain behavior of skin 06/27/2010 01/29/2012 Disturbance of Skin Sensatio n: tenderness//pain 06/27/2010 01/29/2012 Urticaria 12/12/2009 01/29/2012 Overview: Spontaneous, episodic, lasting about an hour per episode -- started documented as of this encounter (statuses as of 07/28/2023) [facility] History of Past illness Narrative* Problem Noted Date Diagnosed Date Resolved Date Dyspnea on exertion 02/14/2022 12/18/19 23 Atrial fibrillation, persistent 01/27/2022 01/27/2022 Lightheaded 01/05/2020 12/17/2022 Dizziness and giddiness 09/30/201305/08 Neoplasm of uncertain behavior of skin 06/27/2010 01/29/2012 Disturbance of Skin Sensatio n: tenderness//pain 06/27/2010 01/29/2012 Urticaria 12/12/2009 01/29/2012 Overview: Spontaneous, episodic, lasting about an hour per episode -- started documented as of this encounter (statuses as of 08/07/2023) [facility] History of Past illness Narrative* Problem Noted Date Diagnosed Date Resolved Date Dyspnea on exertion 02/14/2022 12/18/19 23 Atrial fibrillation, persistent 01/27/2022 01/27/2022 Lightheaded 01/05/2020 12/17/2022 Dizziness and giddiness 09/30/201305/08 Neoplasm of uncertain behavior of skin 06/27/2010 01/29/2012 Disturbance of Skin Sensatio n: tenderness//pain 06/27/2010 01/29/2012 Urticaria 12/12/2009 01/29/2012 Overview: Spontaneous, episodic, lasting about an hour per episode -- started documented as of this encounter (statuses as of 08/18/2023) [facility] History of Past illness Narrative* Problem Noted Date Diagnosed Date Resolved Date Dyspnea on exertion 02/14/2022 12/18/19 23 Atrial fibrillation, persistent 01/27/2022 01/27/2022 Lightheaded 01/05/2020 12/17/2022 Dizziness and giddiness 09/30/201305/08 Neoplasm of uncertain behavior of skin 06/27/2010 01/29/2012 Disturbance of Skin Sensatio n: tenderness//pain 06/27/2010 01/29/2012 Urticaria 12/12/2009 01/29/2012 Overview: Spontaneous, episodic, lasting about an hour per episode -- started documented as of this encounter (statuses as of 08/19/2023) [facility] History of Past illness Narrative* Problem Noted Date Diagnosed Date Resolved Date Dyspnea on exertion 02/14/2022 12/18/19 23 Atrial fibrillation, persistent 01/27/2022 01/27/2022 Lightheaded 01/05/2020 12/17/2022 Dizziness and giddiness 09/30/201305/08 Neoplasm of uncertain behavior of skin 06/27/2010 01/29/2012 Disturbance of Skin Sensatio n: tenderness//pain 06/27/2010 01/29/2012 Urticaria 12/12/2009 01/29/2012 Overview: Spontaneous, episodic, lasting about an hour per episode -- started documented as of this encounter (statuses as of 08/19/2023) [facility] History of Past illness Narrative* Problem Noted Date Diagnosed Date Resolved Date Dyspnea on exertion 02/14/2022 12/18/19 23 Atrial fibrillation, persistent 01/27/2022 01/27/2022 Lightheaded 01/05/2020 12/17/2022 Dizziness and giddiness 09/30/201305/08 Neoplasm of uncertain behavior of skin 06/27/2010 01/29/2012 Disturbance of Skin Sensatio n: tenderness//pain 06/27/2010 01/29/2012 Urticaria 12/12/2009 01/29/2012 Overview: Spontaneous, episodic, lasting about an hour per episode -- started documented as of this encounter (statuses as of 08/20/2023) [facility] History of Past illness Narrative* Problem Noted Date Diagnosed Date Resolved Date Dyspnea on exertion 02/14/2022 12/18/19 23 Atrial fibrillation, persistent 01/27/2022 01/27/2022 Lightheaded 01/05/2020 12/17/2022 Dizziness and giddiness 09/30/201305/08 Neoplasm of uncertain behavior of skin 06/27/2010 01/29/2012 Disturbance of Skin Sensatio n: tenderness//pain 06/27/2010 01/29/2012 Urticaria 12/12/2009 01/29/2012 Overview: Spontaneous, episodic, lasting about an hour per episode -- started documented as of this encounter (statuses as of 08/25/2023) [facility] History of Past illness Narrative* Problem Noted Date Diagnosed Date Resolved Date Dyspnea on exertion 02/14/2022 12/18/19 23 Atrial fibrillation, persistent 01/27/2022 01/27/2022 Lightheaded 01/05/2020 12/17/2022 Dizziness and giddiness 09/30/201305/08 Neoplasm of uncertain behavior of skin 06/27/2010 01/29/2012 Disturbance of Skin Sensatio n: tenderness//pain 06/27/2010 01/29/2012 Urticaria 12/12/2009 01/29/2012 Overview: Spontaneous, episodic, lasting about an hour per episode -- started documented as of this encounter (statuses as of 10/14/2023) [facility] History of Past illness Narrative* Problem Noted Date Diagnosed Date Resolved Date Dyspnea on exertion 02/14/2022 12/18/19 Atrial fibrillation, persistent 01/27/2022 01/27/2022 Lightheaded 01/05/2020 12/17/2022 Dizziness and giddiness 09/30/201305/08 Neoplasm of uncertain behavior of skin 06/27/2010 01/29/2012 Disturbance of Skin Sensatio n: tenderness//pain 06/27/2010 01/29/2012 Urticaria 12/12/2009 01/29/2012 Overview: Spontaneous, episodic, lasting about an hour per episode -- started documented as of this encounter (statuses as of 10/23/2023) [facility] History of Past illness Narrative* Problem Noted Date Diagnosed Date Resolved Date Dyspnea on exertion 02/14/2022 12/18/19 23 Atrial fibrillation, persistent 01/27/2022 01/27/2022 Lightheaded 01/05/2020 12/17/2022 Dizziness and giddiness 09/30/201305/08 Neoplasm of uncertain behavior of skin 06/27/2010 01/29/2012 Disturbance of Skin Sensatio n: tenderness//pain 06/27/2010 01/29/2012 Urticaria 12/12/2009 01/29/2012 Overview: Spontaneous, episodic, lasting about an hour per episode -- started documented as of this encounter (statuses as of 10/26/2023) [facility] History of Present illness Narrative* Kapil Yadav MD - 02/13/2022 10:39 AM EDT Images from the original note were not included. Ortho Knee Follow Up Note Narrative Referring Provider: Kapil Yadav [address] [facility] [id number] PCP: Norm Sharif MD IMPRESSION/PLAN: 81 year old s/p Right Total Knee Replacement completed on 12/25/2021. AMB ROOMING INTAKE FLOWSHEET DATA Risk Screening Do you have concerns about personal safety or safety in the home?: No Pain Pain Level: 3 Pain Location: Knee-Right Description: Sharp Duration Amount of Time: (Post op) Frequency: Continuous Intervention/Comfort measure: Medication Patient states she has been having pain during the night that wakes her up. Has been having some swelling in the evenings. Taking Tylenol for the pain and does not help. Has been using the walker when she goes outside to walk. Continuing physical therapy and home exercises. Orthopaedic Surgeries 12/25/2021 (7w, 1d) ARTHROPLASTY REPLACE JOINT TOTAL KNEE (Right) Kapil Yadav MD - Posted 07/17/2021 (6mo) ARTHROPLASTY REPLACE JOINT TOTAL HIP (Left) Kapil Yadav MD - Posted PAIN EVALUATION 02/13/2022 1041 Pain Level: 3 Pain Location: Knee-Right Description: Sharp Duration Amount of Time: Post op Frequency: Continuous Intervention/Comfort measure: Medication IMPRESSION: Excellent early outcome No complaints or limitations At normal post-operative stage of recovery. PLAN: No new treatment indicated: Continue physical therapy. Patient Reassurance: Normal post-operative course discussed with patient. Progress appears to be with the normal speed of recovery. Patient reassured and supported. All questions answered. 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 Post-operative recovery was complicated by uneventful/none. Readmission(s) since surgery (90 days post)? No ED Visits & Hospitalizations - Last 180 days 12/25/21 Kapil Yadav MD, ME2E S/P total knee arthroplasty, right ..., Admission (Discharged) Patient rates their condition as improving. Does the patient still experience pain? No Post Op discharge patient location: in home. Functional Assessment is as follows: has already started outpatient PT as of this visit. Functional difficulties: None. Pain Medication: None Current Opioids Analgesic Opioid Agonists Start End oxyCODONE IR (ROXICODONE) 5 mg immediate release tablet 12/26/2021 Sig - Route: Take 1-2 tablets by mouth every 6 hours as needed for pain. - ORAL Patient not taking: Reported on 02/13/2022 Earliest Fill Date: 12/26/2021 Currently Ambulating with: a cane Physical Therapy Data 12/11/2020 12/13/2020 12/17/2020 Therapist that will oversee plan of care Sherry Kay, PT Sherry Kay, PT Sherry Kay, PT Prognosis - - - Frequency - - (No Data) Duration - - - Total number of visits - - - Planned treatment interventions - - - Plan for next visit Core stabilization; Functional mobility; Glute/hip musculature strengthening; standing balance; gait training Core stabilization; Functional mobility; Glute/hip musculature strengthening; standing balance; gait training - EXAM: POST OP KNEE Right Post-Operative Knee Ambulates with a limp favoring the right. SKIN: Incision well healed. Range of motion is 0 degrees in extension and 120 degrees of flexion. Extension La degrees Pain with ROM: No There is Slight effusion. Mal-alignment: No Tender to the palpation of None Neurovascular Status: Sensation Intact, Moves foot and ankle up & down and 2+ dorsalis pedis Stability:Anterior/Posterior- Yes, stable and Varus/Valgus- Yes, stable Quad strength: improving Imagin. Implants are well aligned. Implants are well fixed. Provider: Kapil Yadav MD Completed by: Kapil Yadav MD [facility] Miscellaneous Notes* Telephone Encounter - Latisha Lemos RN - 02/05/2022 1:52 PM EDT Could not find any new information in pt chart that provider wanted a new monitor placed. Previous monitor placed and resulted for 01/06/22-01/20/22 and pt had f/u after. Contacted [facility] and spoke with Emma. Monitor was shipped, but if this was a mistake have pt mail monitor back. Call to pt and notified via VM to return monitor unless she spoke directly to or other caregiver and a new monitor was warranted. Office number given to pt for any further questions. * Telephone Encounter - Destiny Scott LPN - 02/05/2022 1:12 PM EDT Verified name and date of . Radha from [employer] called for KYLEE Good to discuss device thatpatient had but a new device has been shipped on January 30, 2022 and they are uncertain if this was intentional. Please call to discuss. Destiny Scott LPN [facility] History of Past illness Narrative* Problem Noted Date Resolved Date Atrial fibrillation, persistent 01/27/2022 01/27/2022 Dizziness and giddiness 09/30/2013 05/26/20 16 Neoplasm of uncertain behavior of skin 0 01/29/2012 Disturbance of Skin Sensation: tenderness//pain 06/27/2010 01/29/2012 Urticaria 12/12/2009 01/29/2012 Overview: Spontaneous, episodic, lasting about an hour per episode -- started [id number] documented as of this encounter (statuses as of 02/13/2022) [facility] History of Past illness Narrative* Problem Noted Date Resolved Date Atrial fibrillation, persistent 01/27/2022 01/27/2022 Dizziness and giddiness 09/30/2013 05/26/20 16 Neoplasm of uncertain behavior of skin 0 01/29/2012 Disturbance of Skin Sensation: tenderness//pain 06/27/2010 01/29/2012 Urticaria 12/12/2009 01/29/2012 Overview: Spontaneous, episodic, lasting about an hour per episode -- started documented as of this encounter (statuses as of 02/13/2022) [facility] of Past illness Narrative* Problem Noted Date Resolved Date Atrial fibrillation, persistent 01/27/2022 01/27/2022 Dizziness and giddiness 09/30/2013 05/26/20 16 Neoplasm of uncertain behavior of skin 0 01/29/2012 Disturbance of Skin Sensation: tenderness//pain 06/27/2010 01/29/2012 Urticaria 12/12/2009 01/29/2012 Overview: Spontaneous, episodic, lasting about an hour per episode -- started documented as of this encounter (statuses as of 02/20/2022) [facility] of Past illness Narrative* Problem Noted Date Resolved Date Atrial fibrillation, persistent 01/27/2022 01/27/2022 Dizziness and giddiness 09/30/2013 05/26/20 16 Neoplasm of uncertain behavior of skin 0 01/29/2012 Disturbance of Skin Sensation: tenderness//pain 06/27/2010 01/29/2012 Urticaria 12/12/2009 01/29/2012 Overview: Spontaneous, episodic, lasting about an hour per episode -- started documented as of this encounter (statuses as of 03/02/2022) [facility] of Past illness Narrative* Problem Noted Date Resolved Date Atrial fibrillation, persistent 01/27/2022 01/27/2022 Dizziness and giddiness 09/30/2013 05/26/20 16 Neoplasm of uncertain behavior of skin 0 01/29/2012 Disturbance of Skin Sensation: tenderness//pain 06/27/2010 01/29/2012 Urticaria 12/12/2009 01/29/2012 Overview: Spontaneous, episodic, lasting about an hour per episode -- started documented as of this encounter (statuses as of 03/08/2022) [facility] of Past illness Narrative* Problem Noted Date Resolved Date Atrial fibrillation, persistent 01/27/2022 01/27/2022 Dizziness and giddiness 09/30/2013 05/26/20 16 Neoplasm of uncertain behavior of skin 0 01/29/2012 Disturbance of Skin Sensation: tenderness//pain 06/27/2010 01/29/2012 Urticaria 12/12/2009 01/29/2012 Overview: Spontaneous, episodic, lasting about an hour per episode -- started documented as of this encounter (statuses as of 03/13/2022) [facility] [facility] of Past illness Narrative* Problem Noted Date Resolved Date Atrial fibrillation, persistent 01/27/2022 01/27/2022 Dizziness and giddiness 09/30/2013 05/26/20 16 Neoplasm of uncertain behavior of skin 0 01/29/2012 Disturbance of Skin Sensation: tenderness//pain 06/27/2010 01/29/2012 Urticaria 12/12/2009 01/29/2012 Overview: Spontaneous, episodic, lasting about an hour per episode -- started documented as of this encounter (statuses as of 03/20/2022) [facility] History of Past illness Narrative* Problem Noted Date Resolved Date Atrial fibrillation, persistent 01/27/2022 01/27/2022 Dizziness and giddiness 09/30/2013 05/26/20 16 Neoplasm of uncertain behavior of skin 0 01/29/2012 Disturbance of Skin Sensation: tenderness//pain 06/27/2010 01/29/2012 Urticaria 12/12/2009 01/29/2012 Overview: Spontaneous, episodic, lasting about an hour per episode -- started documented as of this encounter (statuses as of 03/27/2022) [facility] History of Past illness Narrative* Problem Noted Date Resolved Date Atrial fibrillation, persistent 01/27/2022 01/27/2022 Dizziness and giddiness 09/30/2013 05/26/20 16 Neoplasm of uncertain behavior of skin 0 01/29/2012 Disturbance of Skin Sensation: tenderness//pain 06/27/2010 01/29/2012 Urticaria 12/12/2009 01/29/2012 Overview: Spontaneous, episodic, lasting about an hour per episode -- started documented as of this encounter (statuses as of 04/02/2022) [facility] History of Past illness Narrative* Problem Noted Date Resolved Date Atrial fibrillation, persistent 01/27/2022 01/27/2022 Dizziness and giddiness 09/30/2013 05/26/20 16 Neoplasm of uncertain behavior of skin 0 01/29/2012 Disturbance of Skin Sensation: tenderness//pain 06/27/2010 01/29/2012 Urticaria 12/12/2009 01/29/2012 Overview: Spontaneous, episodic, lasting about an hour per episode -- started documented as of this encounter (statuses as of 04/08/2022) [facility] History of Past illness Narrative* Problem Noted Date Resolved Date Atrial fibrillation, persistent 01/27/2022 01/27/2022 Dizziness and giddiness 09/30/2013 05/26/20 16 Neoplasm of uncertain behavior of skin 0 01/29/2012 Disturbance of Skin Sensation: tenderness//pain 06/27/2010 01/29/2012 Urticaria 12/12/2009 01/29/2012 Overview: Spontaneous, episodic, lasting about an hour per episode -- started documented as of this encounter (statuses as of 04/11/2022) [facility] History of Past illness Narrative* Problem Noted Date Resolved Date Atrial fibrillation, persistent 01/27/2022 01/27/2022 Dizziness and giddiness 09/30/2013 05/26/20 16 Neoplasm of uncertain behavior of skin 0 01/29/2012 Disturbance of Skin Sensation: tenderness//pain 06/27/2010 01/29/2012 Urticaria 12/12/2009 01/29/2012 Overview: Spontaneous, episodic, lasting about an hour per episode -- started documented as of this encounter (statuses as of 04/17/2022) [facility] History of Past illness Narrative* Problem Noted Date Resolved Date Atrial fibrillation, persistent 01/27/2022 01/27/2022 Dizziness and giddiness 09/30/2013 05/26/20 16 Neoplasm of uncertain behavior of skin 0 01/29/2012 Disturbance of Skin Sensation: tenderness//pain 06/27/2010 01/29/2012 Urticaria 12/12/2009 01/29/2012 Overview: Spontaneous, episodic, lasting about an hour per episode -- started documented as of this encounter (statuses as of 04/17/2022) [facility] History of Past illness Narrative* Problem Noted Date Resolved Date Atrial fibrillation, persistent 01/27/2022 01/27/2022 Dizziness and giddiness 09/30/2013 05/26/20 16 Neoplasm of uncertain behavior of skin 0 01/29/2012 Disturbance of Skin Sensation: tenderness//pain 06/27/2010 01/29/2012 Urticaria 12/12/2009 01/29/2012 Overview: Spontaneous, episodic, lasting about an hour per episode -- started documented as of this encounter (statuses as of 04/21/2022) [facility] History of Past illness Narrative* Problem Noted Date Resolved Date Atrial fibrillation, persistent 01/27/2022 01/27/2022 Dizziness and giddiness 09/30/2013 05/26/20 16 Neoplasm of uncertain behavior of skin 0 01/29/2012 Disturbance of Skin Sensation: tenderness//pain 06/27/2010 01/29/2012 Urticaria 12/12/2009 01/29/2012 Overview: Spontaneous, episodic, lasting about an hour per episode -- started documented as of this encounter (statuses as of 04/30/2022) [facility] History of Past illness Narrative* Problem Noted Date Resolved Date Atrial fibrillation, persistent 01/27/2022 01/27/2022 Dizziness and giddiness 09/30/2013 05/26/20 16 Neoplasm of uncertain behavior of skin 0 01/29/2012 Disturbance of Skin Sensation: tenderness//pain 06/27/2010 01/29/2012 Urticaria 12/12/2009 01/29/2012 Overview: Spontaneous, episodic, lasting about an hour per episode -- started documented as of this encounter (statuses as of 05/05/2022) [facility] History of Past illness Narrative* Problem Noted Date Resolved Date Atrial fibrillation, persistent 01/27/2022 01/27/2022 Dizziness and giddiness 09/30/2013 05/26/20 16 Neoplasm of uncertain behavior of skin 0 01/29/2012 Disturbance of Skin Sensation: tenderness//pain 06/27/2010 01/29/2012 Urticaria 12/12/2009 01/29/2012 Overview: Spontaneous, episodic, lasting about an hour per episode -- started documented as of this encounter (statuses as of 05/06/2022) [facility] History of Past illness Narrative* Problem Noted Date Resolved Date Atrial fibrillation, persistent 01/27/2022 01/27/2022 Dizziness and giddiness 09/30/2013 05/26/20 16 Neoplasm of uncertain behavior of skin 0 01/29/2012 Disturbance of Skin Sensation: tenderness//pain 06/27/2010 01/29/2012 Urticaria 12/12/2009 01/29/2012 Overview: Spontaneous, episodic, lasting about an hour per episode -- started documented as of this encounter (statuses as of 05/13/2022) [facility] History of Past illness Narrative* Problem Noted Date Resolved Date Atrial fibrillation, persistent 01/27/2022 01/27/2022 Dizziness and giddiness 09/30/2013 05/26/20 16 Neoplasm of uncertain behavior of skin 0 01/29/2012 Disturbance of Skin Sensation: tenderness//pain 06/27/2010 01/29/2012 Urticaria 12/12/2009 01/29/2012 Overview: Spontaneous, episodic, lasting about an hour per episode -- started documented as of this encounter (statuses as of 05/15/2022) [facility] History of Past illness Narrative* Problem Noted Date Resolved Date Atrial fibrillation, persistent 01/27/2022 01/27/2022 Dizziness and giddiness 09/30/2013 05/26/20 16 Neoplasm of uncertain behavior of skin 0 01/29/2012 Disturbance of Skin Sensation: tenderness//pain 06/27/2010 01/29/2012 Urticaria 12/12/2009 01/29/2012 Overview: Spontaneous, episodic, lasting about an hour per episode -- started documented as of this encounter (statuses as of 05/29/2022) [facility] History of Past illness Narrative* Problem Noted Date Resolved Date Atrial fibrillation, persistent 01/27/2022 01/27/2022 Dizziness and giddiness 09/30/2013 05/26/20 16 Neoplasm of uncertain behavior of skin 0 01/29/2012 Disturbance of Skin Sensation: tenderness//pain 06/27/2010 01/29/2012 Urticaria 12/12/2009 01/29/2012 Overview: Spontaneous, episodic, lasting about an hour per episode -- started documented as of this encounter (statuses as of 05/29/2022) [facility] History of Past illness Narrative* Problem Noted Date Resolved Date Atrial fibrillation, persistent 01/27/2022 01/27/2022 Dizziness and giddiness 09/30/2013 05/26/20 16 Neoplasm of uncertain behavior of skin 0 01/29/2012 Disturbance of Skin Sensation: tenderness//pain 06/27/2010 01/29/2012 Urticaria 12/12/2009 01/29/2012 Overview: Spontaneous, episodic, lasting about an hour per episode -- started documented as of this encounter (statuses as of 05/30/2022) [facility] History of Past illness Narrative* Problem Noted Date Resolved Date Atrial fibrillation, persistent 01/27/2022 01/27/2022 Dizziness and giddiness 09/30/2013 05/26/20 16 Neoplasm of uncertain behavior of skin 0 01/29/2012 Disturbance of Skin Sensation: tenderness//pain 06/27/2010 01/29/2012 Urticaria 12/12/2009 01/29/2012 Overview: Spontaneous, episodic, lasting about an hour per episode -- started documented as of this encounter (statuses as of 06/02/2022) [facility] History of Past illness Narrative* Problem Noted Date Resolved Date Atrial fibrillation, persistent 01/27/2022 01/27/2022 Dizziness and giddiness 09/30/2013 05/26/20 16 Neoplasm of uncertain behavior of skin 0 01/29/2012 Disturbance of Skin Sensation: tenderness//pain 06/27/2010 01/29/2012 Urticaria 12/12/2009 01/29/2012 Overview: Spontaneous, episodic, lasting about an hour per episode -- started documented as of this encounter (statuses as of 06/02/2022) [facility] History of Past illness Narrative* Problem Noted Date Resolved Date Atrial fibrillation, persistent 01/27/2022 01/27/2022 Dizziness and giddiness 09/30/2013 05/26/20 16 Neoplasm of uncertain behavior of skin 0 01/29/2012 Disturbance of Skin Sensation: tenderness//pain 06/27/2010 01/29/2012 Urticaria 12/12/2009 01/29/2012 Overview: Spontaneous, episodic, lasting about an hour per episode -- started documented as of this encounter (statuses as of 06/26/2022) [facility] History of Past illness Narrative* Problem Noted Date Resolved Date Atrial fibrillation, persistent 01/27/2022 01/27/2022 Dizziness and giddiness 09/30/2013 05/26/20 16 Neoplasm of uncertain behavior of skin 0 01/29/2012 Disturbance of Skin Sensation: tenderness//pain 06/27/2010 01/29/2012 Urticaria 12/12/2009 01/29/2012 Overview: Spontaneous, episodic, lasting about an hour per episode -- started documented as of this encounter (statuses as of 07/09/2022) [facility] History of Past illness Narrative* Problem Noted Date Resolved Date Atrial fibrillation, persistent 01/27/2022 01/27/2022 Dizziness and giddiness 09/30/2013 05/26/20 16 Neoplasm of uncertain behavior of skin 0 01/29/2012 Disturbance of Skin Sensation: tenderness//pain 06/27/2010 01/29/2012 Urticaria 12/12/2009 01/29/2012 Overview: Spontaneous, episodic, lasting about an hour per episode -- started documented as of this encounter (statuses as of 07/25/2022) [facility] History of Past illness Narrative* Problem Noted Date Resolved Date Atrial fibrillation, persistent 01/27/2022 01/27/2022 Dizziness and giddiness 09/30/2013 05/26/20 16 Neoplasm of uncertain behavior of skin 0 01/29/2012 Disturbance of Skin Sensation: tenderness//pain 06/27/2010 01/29/2012 Urticaria 12/12/2009 01/29/2012 Overview: Spontaneous, episodic, lasting about an hour per episode -- started documented as of this encounter (statuses as of 08/06/2022) [facility] History of Past illness Narrative* Problem Noted Date Resolved Date Atrial fibrillation, persistent 01/27/2022 01/27/2022 Dizziness and giddiness 09/30/2013 05/26/20 16 Neoplasm of uncertain behavior of skin 0 01/29/2012 Disturbance of Skin Sensation: tenderness//pain 06/27/2010 01/29/2012 Urticaria 12/12/2009 01/29/2012 Overview: Spontaneous, episodic, lasting about an hour per episode -- started documented as of this encounter (statuses as of 08/21/2022) [facility] History of Past illness Narrative* Problem Noted Date Resolved Date Atrial fibrillation, persistent 01/27/2022 01/27/2022 Dizziness and giddiness 09/30/2013 05/26/20 16 Neoplasm of uncertain behavior of skin 0 01/29/2012 Disturbance of Skin Sensation: tenderness//pain 06/27/2010 01/29/2012 Urticaria 12/12/2009 01/29/2012 Overview: Spontaneous, episodic, lasting about an hour per episode -- started documented as of this encounter (statuses as of 08/22/2022) [facility] History of Past illness Narrative* Problem Noted Date Resolved Date Atrial fibrillation, persistent 01/27/2022 01/27/2022 Dizziness and giddiness 09/30/2013 05/26/20 16 Neoplasm of uncertain behavior of skin 0 01/29/2012 Disturbance of Skin Sensation: tenderness//pain 06/27/2010 01/29/2012 Urticaria 12/12/2009 01/29/2012 Overview: Spontaneous, episodic, lasting about an hour per episode -- started documented as of this encounter (statuses as of 08/27/2022) [facility] History of Past illness Narrative* Problem Noted Date Resolved Date Atrial fibrillation, persistent 01/27/2022 01/27/2022 Dizziness and giddiness 09/30/2013 05/26/20 16 Neoplasm of uncertain behavior of skin 0 01/29/2012 Disturbance of Skin Sensation: tenderness//pain 06/27/2010 01/29/2012 Urticaria 12/12/2009 01/29/2012 Overview: Spontaneous, episodic, lasting about an hour per episode -- started documented as of this encounter (statuses as of 08/29/2022) [facility] History of Past illness Narrative* Problem Noted Date Resolved Date Atrial fibrillation, persistent 01/27/2022 01/27/2022 Dizziness and giddiness 09/30/2013 05/26/20 16 Neoplasm of uncertain behavior of skin 0 01/29/2012 Disturbance of Skin Sensation: tenderness//pain 06/27/2010 01/29/2012 Urticaria 12/12/2009 01/29/2012 Overview: Spontaneous, episodic, lasting about an hour per episode -- started documented as of this encounter (statuses as of 09/09/2022) [facility] History of Past illness Narrative* Problem Noted Date Resolved Date Atrial fibrillation, persistent 01/27/2022 01/27/2022 Dizziness and giddiness 09/30/2013 05/26/20 16 Neoplasm of uncertain behavior of skin 0 01/29/2012 Disturbance of Skin Sensation: tenderness//pain 06/27/2010 01/29/2012 Urticaria 12/12/2009 01/29/2012 Overview: Spontaneous, episodic, lasting about an hour per episode -- started documented as of this encounter (statuses as of 09/10/2022) [facility] History of Past illness Narrative* Problem Noted Date Resolved Date Atrial fibrillation, persistent 01/27/2022 01/27/2022 Dizziness and giddiness 09/30/2013 05/26/20 16 Neoplasm of uncertain behavior of skin 0 01/29/2012 Disturbance of Skin Sensation: tenderness//pain 06/27/2010 01/29/2012 Urticaria 12/12/2009 01/29/2012 Overview: Spontaneous, episodic, lasting about an hour per episode -- started documented as of this encounter (statuses as of 09/12/2022) [facility] History of Past illness Narrative* Problem Noted Date Resolved Date Atrial fibrillation, persistent 01/27/2022 01/27/2022 Dizziness and giddiness 09/30/2013 05/26/20 16 Neoplasm of uncertain behavior of skin 0 01/29/2012 Disturbance of Skin Sensation: tenderness//pain 06/27/2010 01/29/2012 Urticaria 12/12/2009 01/29/2012 Overview: Spontaneous, episodic, lasting about an hour per episode -- started documented as of this encounter (statuses as of 09/12/2022) [facility] History of Past illness Narrative* Problem Noted Date Resolved Date Atrial fibrillation, persistent 01/27/2022 01/27/2022 Dizziness and giddiness 09/30/2013 05/26/20 16 Neoplasm of uncertain behavior of skin 0 01/29/2012 Disturbance of Skin Sensation: tenderness//pain 06/27/2010 01/29/2012 Urticaria 12/12/2009 01/29/2012 Overview: Spontaneous, episodic, lasting about an hour per episode -- started documented as of this encounter (statuses as of 09/17/2022) [facility] History of Past illness Narrative* Problem Noted Date Resolved Date Atrial fibrillation, persistent 01/27/2022 01/27/2022 Dizziness and giddiness 09/30/2013 05/26/20 16 Neoplasm of uncertain behavior of skin 0 01/29/2012 Disturbance of Skin Sensation: tenderness//pain 06/27/2010 01/29/2012 Urticaria 12/12/2009 01/29/2012 Overview: Spontaneous, episodic, lasting about an hour per episode -- started documented as of this encounter (statuses as of 09/19/2022) [facility] History of Past illness Narrative* Problem Noted Date Resolved Date Atrial fibrillation, persistent 01/27/2022 01/27/2022 Dizziness and giddiness 09/30/2013 05/26/20 16 Neoplasm of uncertain behavior of skin 0 01/29/2012 Disturbance of Skin Sensation: tenderness//pain 06/27/2010 01/29/2012 Urticaria 12/12/2009 01/29/2012 Overview: Spontaneous, episodic, lasting about an hour per episode -- started documented as of this encounter (statuses as of 10/02/2022) [facility] History of Past illness Narrative* Problem Noted Date Resolved Date Atrial fibrillation, persistent 01/27/2022 01/27/2022 Dizziness and giddiness 09/30/2013 05/26/20 16 Neoplasm of uncertain behavior of skin 0 01/29/2012 Disturbance of Skin Sensation: tenderness//pain 06/27/2010 01/29/2012 Urticaria 12/12/2009 01/29/2012 Overview: Spontaneous, episodic, lasting about an hour per episode -- started documented as of this encounter (statuses as of 10/06/2022) [facility] History of Past illness Narrative* Problem Noted Date Resolved Date Atrial fibrillation, persistent 01/27/2022 01/27/2022 Dizziness and giddiness 09/30/2013 05/26/20 16 Neoplasm of uncertain behavior of skin 0 01/29/2012 Disturbance of Skin Sensation: tenderness//pain 06/27/2010 01/29/2012 Urticaria 12/12/2009 01/29/2012 Overview: Spontaneous, episodic, lasting about an hour per episode -- started documented as of this encounter (statuses as of 10/08/2022) [facility] History of Past illness Narrative* Problem Noted Date Resolved Date Atrial fibrillation, persistent 01/27/2022 01/27/2022 Dizziness and giddiness 09/30/2013 05/26/20 16 Neoplasm of uncertain behavior of skin 0 01/29/2012 Disturbance of Skin Sensation: tenderness//pain 06/27/2010 01/29/2012 Urticaria 12/12/2009 01/29/2012 Overview: Spontaneous, episodic, lasting about an hour per episode -- started documented as of this encounter (statuses as of 10/15/2022) [facility] History of Past illness Narrative* Problem Noted Date Resolved Date Atrial fibrillation, persistent 01/27/2022 01/27/2022 Dizziness and giddiness 09/30/2013 05/26/20 16 Neoplasm of uncertain behavior of skin 0 01/29/2012 Disturbance of Skin Sensation: tenderness//pain 06/27/2010 01/29/2012 Urticaria 12/12/2009 01/29/2012 Overview: Spontaneous, episodic, lasting about an hour per episode -- started documented as of this encounter (statuses as of 10/21/2022) [facility] History of Past illness Narrative* Problem Noted Date Resolved Date Atrial fibrillation, persistent 01/27/2022 01/27/2022 Dizziness and giddiness 09/30/2013 05/26/20 16 Neoplasm of uncertain behavior of skin 0 01/29/2012 Disturbance of Skin Sensation: tenderness//pain 06/27/2010 01/29/2012 Urticaria 12/12/2009 01/29/2012 Overview: Spontaneous, episodic, lasting about an hour per episode -- started documented as of this encounter (statuses as of 10/21/2022) [facility] History of Past illness Narrative* Problem Noted Date Resolved Date Atrial fibrillation, persistent 01/27/2022 01/27/2022 Dizziness and giddiness 09/30/2013 05/26/20 16 Neoplasm of uncertain behavior of skin 0 01/29/2012 Disturbance of Skin Sensation: tenderness//pain 06/27/2010 01/29/2012 Urticaria 12/12/2009 01/29/2012 Overview: Spontaneous, episodic, lasting about an hour per episode -- started documented as of this encounter (statuses as of 10/23/2022) [facility] History of Past illness Narrative* Problem Noted Date Resolved Date Atrial fibrillation, persistent 01/27/2022 01/27/2022 Dizziness and giddiness 09/30/2013 05/26/20 16 Neoplasm of uncertain behavior of skin 0 01/29/2012 Disturbance of Skin Sensation: tenderness//pain 06/27/2010 01/29/2012 Urticaria 12/12/2009 01/29/2012 Overview: Spontaneous, episodic, lasting about an hour per episode -- started documented as of this encounter (statuses as of 11/12/2022) [facility] History of Past illness Narrative* Problem Noted Date Resolved Date Atrial fibrillation, persistent 01/27/2022 01/27/2022 Dizziness and giddiness 09/30/2013 05/26/20 16 Neoplasm of uncertain behavior of skin 0 01/29/2012 Disturbance of Skin Sensation: tenderness//pain 06/27/2010 01/29/2012 Urticaria 12/12/2009 01/29/2012 Overview: Spontaneous, episodic, lasting about an hour per episode -- started documented as of this encounter (statuses as of 11/13/2022) [facility] History of Past illness Narrative* Problem Noted Date Resolved Date Atrial fibrillation, persistent 01/27/2022 01/27/2022 Dizziness and giddiness 09/30/2013 05/26/20 16 Neoplasm of uncertain behavior of skin 0 01/29/2012 Disturbance of Skin Sensation: tenderness//pain 06/27/2010 01/29/2012 Urticaria 12/12/2009 01/29/2012 Overview: Spontaneous, episodic, lasting about an hour per episode -- started documented as of this encounter (statuses as of 11/27/2022) [facility] History of Past illness Narrative* Problem Noted Date Resolved Date Atrial fibrillation, persistent 01/27/2022 01/27/2022 Dizziness and giddiness 09/30/2013 05/26/20 16 Neoplasm of uncertain behavior of skin 0 01/29/2012 Disturbance of Skin Sensation: tenderness//pain 06/27/2010 01/29/2012 Urticaria 12/12/2009 01/29/2012 Overview: Spontaneous, episodic, lasting about an hour per episode -- started documented as of this encounter (statuses as of 11/28/2022) [facility] Miscellaneous Notes* Telephone Encounter - Mary Lomeli - 01/24/2022 8:57 AM EDT Images from the original note were not included. Reji Prakash MD Spoke to the patient she will come into the office on Thursday at 10:00 for an apt Thanks Jeffry prakash Scheduled as instructed. Mary Lomeli * Telephone Encounter - Latisha Lemos RN - 01/23/2022 1:33 PM EDT Caryl from [employer] called to report pt had episode of V-tach for 2.9 sec with HR 184 BPM and can be found in report on strip 5, pg. 11 [facility] Present illness Narrative* Micheline Rodriguez PA-C - 01/06/2022 3:19 PM EDT Images from the original note were not included. Ortho Knee Follow Up Note Narrative Referring Provider: Kapil Yadav [address] [facility] [id number] PCP: Norm Sharif MD IMPRESSION/PLAN: 81 year old s/p Right Total Knee Replacement completed on 12/25/2021. Orthopaedic Surgeries 12/25/2021 (1w, 5d) ARTHROPLASTY REPLACE JOINT TOTAL KNEE (Right) Kapil Yadav MD - Posted 07/17/2021 (5mo) ARTHROPLASTY REPLACE JOINT TOTAL HIP (Left) Kapil Yadav MD - Posted PAIN EVALUATION 01/06/2022 1424 Pain Level: 5 Pain Location: Knee-Right Description: Dull;Aching Duration Amount of Time: post op Frequency: Continuous Intervention/Comfort measure: Medication;Exercise IMPRESSION: No complaints or limitations At normal post-operative stage of recovery. PLAN: Continue current conservative treatment. Patient Reassurance: Progress appears to be with the normal speed of recovery. Patient reassured and supported. All questions answered. Follow up 1 month No X-Rays Needed Dayanara Gonzalez presents today for a a routine 1st post-op visit ACTIVE PROBLEM LIST Mixed Hyperlipidemia Pyogenic Granuloma Glomus Tumor Osteoarthritis Essential Hypertension, Benign Morbid Obesity Due to Excess Calories (Hcc) Lung Nodule Ckd (Chronic Kidney Disease) Stage 3, Gfr 30-59 Ml/Min (Hcc) Lightheaded Atrial Tachycardia (Hcc) Ventricular Tachycardia, Nonsustained (Hcc) Chronic Right-Sided Low Back Pain With Right-Sided Sciatica Primary Osteoarthritis of Right Knee Former Smoker History of Total Hip Arthroplasty, Left Syncope Palpitations Status post op: BMI: There is no height or weight on file to calculate BMI. Post-operative recovery was complicated by uneventful/none. Readmission(s) since surgery (90 days post)? No ED Visits & Hospitalizations - Last 180 days 12/25/21 Kapil Yadav MD, ME2E S/P total knee arthroplasty, right ..., Admission (Discharged) 07/17/21 Kapil Yadav MD, ME2E Admission (Discharged) Patient rates their condition as improving. Does the patient still experience pain? Onset: nighttime. Location: Right knee. Frequency: intermittently. Pain scale: 5. Pain character: ache. Relieving factors: Rest and Pain medication. Aggravating factors: Prolonged standing and Increased activity Post Op discharge patient location: in home. Functional Assessment is as follows: is ready to begin outpatient PT. Functional difficulties: Interferes with sleep. Pain Medication: Narcotic Current Opioids Analgesic Opioid Agonists Start End oxyCODONE IR (ROXICODONE) 5 mg immediate release tablet 12/26/2021 Sig - Route: Take 1-2 tablets by mouth every 6 hours as needed for pain. - ORAL Earliest Fill Date: 12/26/2021 Currently Ambulating with: a walker Physical Therapy Data 12/11/2020 12/13/2020 12/17/2020 Therapist that will oversee plan of care Sherry Kay, PT Sherry Kay, PT Sherry Kay, PT Prognosis - - - Frequency - - (No Data) Duration - - - Total number of visits - - - Planned treatment interventions - - - Plan for next visit Core stabilization; Functional mobility; Glute/hip musculature strengthening; standing balance; gait training Core stabilization; Functional mobility; Glute/hip musculature strengthening; standing balance; gait training - EXAM: POST OP KNEE Right Post-Operative Knee Ambulates with a shuffling gait. SKIN: Appropriate postop appearance, No evidence of erythema, warmth, discharge or drainage and No evidence of warmth or erythema. Range of motion is lacking a few degrees secondary to tight hamstrings degrees in extension and 90 degrees of flexion. Extension La degrees Pain with ROM: No There is None effusion. Mal-alignment: No Tender to the palpation of None Neurovascular Status: Sensation Intact, Moves foot and ankle up & down and 2+ dorsalis pedis Stability:Anterior/Posterior- Yes, stable and Varus/Valgus- Yes, stable Quad strength: normal Imagin. Implants are well aligned. Implants are well fixed. Provider: Micheline Rodriguez PA-C Completed by: Micheline Rodriguez PA-C * Yuki Alvarez Ma - 01/06/2022 2:24 PM EDT AMB ROOMING INTAKE FLOWSHEET DATA Risk Screening Do you have concerns about personal safety or safety in the home?: No Pain Pain Level: 5 Pain Location: Knee-Right Description: Dull, Aching Duration Amount of Time: (post op) Frequency: Continuous Intervention/Comfort measure: Medication, Exercise Patient here today for 1 week 5 days post op right TKA. She has been using oxycodone only at night and taking Tylenol during the day. [facility]. documented in this [facility] History of Present illness Narrative* RT Shabbir(R) - 01/06/2022 12:50 PM EDT Radiology Service Progress Note PATIENT NAME: Dayanara Gonzalez DATE OF SERVICE: January 06, 2022 TIME: 1:07 PM PATIENT IDENTITY VERIFICATION COMPLETED USING TWO (2) IDENTIFIERS: Name and Date of confirmedby patient verbally. FALL SCREENING: Has the patient had 2 falls in the last year or 1 fall with injury or currently using an Ambulatory Assistive Device (Walker, Cane, Wheelchair, Crutches, etc.)? No PATIENT GENDER DATA: Female. status: : No status: NO. PATIENT RELEVANT IMPLANT DATA REVIEWED: Not Applicable RADIOLOGY DEPARTMENT: General X-ray: Exam(s) Completed: Lower Extremity X- Ray(s): Knee, AP / Lat / Tunne / Merchant Right and Wt. Bearing PERIPHERAL IV DATA: Not applicable SIGNED BY: RT Shabbir(R) January 06, 2022 1:07 PM documented in this encounterWay[facility]04-25-2022 Miscellaneous Notes* Telephone Encounter - KAMILA Carrillo - 12/30/2021 9:59 AM EDT Doing well at home. Pain is manageable, denies needs at this time. documented in this encounterWay[facility]04-21-2022 NoteHNO ID: [id number] Author: Alexander Avina MD Service: General Internal Medicine Author Type: Physician Type: Progress Notes Filed: 12/26/2021 8:33 AM Note Text: INPATIENT CONSULT PROGRESS NOTES Patient Name: Dayanara Gonzalez DATE of SERVICE: 12/26/21 TIME of SERVICE: 7:40 CONSULTING SERVICE: Medicine Plan of care discussed with: Provider, RN, Patient. INTERVAL HPI: Uneventful night, pain is fairly controlled. Patient seen and examined: Discussed with RN. Vitals/Meds/Labs/U/O reviewed Alert AND Oriented NO nausea, vomiting NO light headedness, NO shortness of breathe Dry oral mucosa CVS ? RRR Lungs ? Clear to auscultation Abdomen ? soft, NT, + BS LLE ? Ankle No edema RLE ? Ankle No edema MEDICATIONS: Current Facility-Administered Medications Medication Dose Route Frequency - scopolamine - VERIFY patch OTHER q 8 H - scopolamine - REMOVE PATCH OTHER ONCE - lisinopril 40 mg tab(s) (ZESTRIL, PRINIVIL) 40 mg ORAL DAILY - metoprolol succinate ER 100 mg tab(s) (TOPROL XL) 100 mg ORAL DAILY - ezetimibe 10 mg tab(s) (ZETIA) 10 mg ORAL DAILY - hydroCHLOROthiazide 25 mg tab(s) (HYDRODIURIL, ESIDRIX) 25 mg ORAL DAILY - oxyCODONE IR 5-10 mg tab(s) (ROXICODONE) 5-10 mg ORAL q 3 H PRN - morphine 2-6 mg injection 2-6 mg INTRAVENOUS q 2 H PRN - acetaminophen 1,000 mg tab(s) (TYLENOL) 1,000 mg ORAL q 8 H - ondansetron orally disintegrating 4 mg tab(s) (ZOFRAN ODT) 4 mg ORAL q 6 H PRN Or - ondansetron (PF) 4 mg injection (ZOFRAN) 4 mg INTRAVENOUS q 6 H PRN - magnesium hydroxide 400 mg/5 mL 30 mL (MOM) 30 mL ORAL DAILY PRN - [START ON 12/27/2021] bisacodyl EC 10 mg tab(s) (DULCOLAX) 10 mg ORAL DAILY - aluminum-magnesium hydroxide-simethicone 200-200-20 mg/5 mL 30 mL (MAALOX,MYLANTA,MAG-AL PLUS) 30 mL ORAL q 2 H PRN - ascorbic acid (vitamin C) 500 mg tab(s) (VITAMIN C) 500 mg ORAL BID w MEALS - docusate sodium 100 mg cap(s) (COLACE) 100 mg ORAL BID - senna 17.2 mg tab(s) (SENOKOT) 17.2 mg ORAL AT BEDTIME - aspirin, enteric coated 81 mg tab(s) 81 mg ORAL BID - NaCl 0.9% iv flush bag 20 mL INTRAVENOUS PRN - lactated ringers iv infusion 75 mL/hr INTRAVENOUS CONTINUOUS PHYSICAL EXAM: Patient Vitals for the past 24 hrs: BP Temp Temp src Pulse Resp SpO2 Height Weight 12/26/21 0823 (!) 110/45 36.5 ?C (97.7 ?F) Oral (!) 57 20 98 % ? ? 12/26/21 0403 111/55 36.8 ?C (98.2 ?F) Oral (!) 52 16 95 % ? ? 12/26/21 0009 136/63 36.4 ?C (97.5 ?F) Oral 61 16 92 % ? ? 12/25/21 1959 134/62 36.9 ?C (98.4 ?F) ? (!) 58 ? 96 % ? ? 12/25/21 1639 159/64 36.3 ?C (97.3 ?F) Oral (!) 52 16 95 % ? ? 12/25/21 1605 144/68 36.3 ?C (97.3 ?F) Axillary (!) 51 16 96 % ? ? 12/25/21 1541 ? 161.3 cm (5' 3.5 ) 110.9 kg (244 lb 7.8 oz) 12/25/21 1538 141/58 36.3 ?C (97.3 ?F) Oral (!) 51 16 95 % ? ? 12/25/21 1515 135/60 ? ? 60 21 94 % ? ? 12/25/21 1500 151/65 ? ? (!) 50 19 93 % ? ? 12/25/21 1445 165/79 ? ? (!) 50 17 99 % ? ? 12/25/21 1430 133/63 ? ? (!) 56 19 98 % ? ? 12/25/21 1420 110/56 36 ?C (96.8 ?F) Temporal Art 66 (!) 34 94 % ? ? 12/25/21 1125 159/72 ? ? (!) 54 (!) 34 99 % ? ? 12/25/21 1120 159/70 ? ? (!) 53 (!) 33 98 % ? ? 12/25/21 1115 155/72 ? ? (!) 55 (!) 31 99 % ? ? 12/25/21 1110 155/73 ? ? (!) 57 (!) 40 99 % ? ? 12/25/21 1105 156/73 ? ? (!) 54 (!) 33 98 % ? ? 12/25/21 1100 170/77 ? 12/25/21 1029 167/69 36.1 ?C (97 ?F) ? (!) 55 16 97 % 161 cm (5' 3.39 ) 106 kg (233 lb 11 oz) Body mass index is 42.63 kg/m?. DATA: CBC: Recent Labs 12/25/21 1556 WBC 8.65 RBC 4.25 HB 12.8 HCT 39.7 PLT 182 MCV 93.4 MCH 30.1 MPV 11.9 Coags: No results for input(s): PT, INR, APTT in the last 24 hours. CMP: Recent Labs 12/25/21 1556 NA 138 K 4.2 CHLOR 105 CO2 22 BUN 24* CREAT 0.85 GLUC 100* CA 9.2 ANION 11 ASSESSMENT AND PLAN: A. OA S/P - Total Knee Unilateral: right, DVT prophylaxis with ASA Continue PT/OT Hypertension,hold lisinopril today Cardiac arrhythmia continue metoprolol Hyperlipidemia continue Zetia Possible discharge today Meds reviewed SIGNATURE: Alexander Avina, [facility] [id number] NoteHNO ID: [id number] Author: Rubio Luu PA-C Service: Orthopaedic Surgery Author Type: Physician Electronic Resources Librarian Type: Progress Notes Filed: 12/26/2021 7:29 AM Note Text: POSTOP NOTE ORTHOPAEDIC SURGERY SERVICE DATE: 12/26/2021 SERVICE TIME: 7:28 AM IMPRESSION/PLAN: S/P Procedure(s) (LRB): ARTHROPLASTY REPLACE JOINT TOTAL KNEE (Right) on 12/25/2021 Physical Therapy evaluation WBAT RLE DVT prophylaxis: with aspirin, additional anticoagulant is contraindicated due to bleeding risk and Intermittent pneumatic compression device (IPCD) Pain control Case Management for discharge planning Plan of care discussed with: Provider, RN, Patient. Patient Active Hospital Problem List: No active hospital problems. POST OPERATIVE COMPLICATIONS: Complicated by uneventful/none SUBJECTIVE: Patient states that they are comfortable Well Controlled knee pain. Denies incisional pain. OBJECTIVE: VITAL SIGNS: BP 111/55 Pulse (!) 52 Temp 36.8 ?C (98.2 ?F) (Oral) Resp 16 Ht 161.3 cm (5' 3.5 ) Wt 110.9 kg (244 lb 7.8 oz) SpO2 95% BMI 42.63 kg/m? INTAKE AND OUTPUT: Intake/Output Summary (Last 24 hours) at 12/26/2021 0722 Last data filed at 12/26/2021 0613 Gross per 24 hour Intake 2112 ml Output 600 ml Net 1512 ml LABS: Hemoglobin Date Value Ref Range Status 12/25/2021 12.8 11.5 - 15.5 g/dL Final 12/09/2021 12.9 11.5 - 15.5 g/dL Final Hematocrit Date Value Ref Range Status 12/25/2021 39.7 36.0 - 46.0 % Final 12/09/2021 38.6 36.0 - 46.0 % Final Platelet Count Date Value Ref Range Status 12/25/2021 182 150 - 400 k/uL Final 12/09/2021 292 150 - 400 k/uL Final WBC Date Value Ref Range Status 12/25/2021 8.65 3.70 - 11.00 k/uL Final 12/09/2021 9.73 3.70 - 11.00 k/uL Final Creatinine Date Value Ref Range Status 12/25/2021 0.85 0.58 - 0.96 mg/dL Final 12/09/2021 0.86 0.58 - 0.96 mg/dL Final Potassium Date Value Ref Range Status 12/25/2021 4.2 3.7 - 5.1 mmol/L Final 12/09/2021 4.2 3.7 - 5.1 mmol/L Final VTE Prophylaxis: Active VTE Risk Category Order: 12/25/21 1545 VTE RISK CATEGORY: SURGICAL HIGH RISK ([place], [place]) Active VTE Medication Orders: Anticoagulant AND Antiplatelet Medications (From admission, onward) Start Dose Route Frequency Last Action Ordered Stop 12/26/21 0900 aspirin, enteric coated 81 mg tab(s) (Surgical Risk Categories) 81 mg ORAL 2 TIMES DAILY Ordered 12/25/21 1537 -- Active VTE Prophylaxis Orders: 12/25/21 1545 PNEUMATIC COMPRESSION STOCKINGS ([place], [place]) PHYSICAL EXAMINATION: Right Lower Extremity: Dorsalis pedis pulses palpable. Posterior tibial pulses palpable. Dorsi flexion 5/5. Plantar flexion 5/5. Extensor hallucis extension: 5/5. Sensory intact to light touch L1-S1. Dressing clean, dry and intact. Surgical site no drainage and Silverlon intact. Thigh is not swollen, calf is not tender, no signs of DVT or infection Problem Review and Assessment: Skin and Abdominal Wall: Patient monitored, no new events overnight Cardiovascular and Vascular: Patient monitored, no new events overnight Respiratory: Patient monitored, no new events overnight Endocrine and Metabolic: Patient monitored, no new events overnight Gastrointestinal: Patient monitored, no new events overnight Genitourinary and Nephrology: Patient monitored, no new events overnight Behavioral, Cerebrovascular and Nervous: Patient monitored, no new events overnight Infectious: Patient monitored, no new events overnight DATA: Diagnostic tests reviewed for today's visit: Most recent labs and imaging results. SIGNATURE: Rubio Luu PA-C PATIENT NAME: Dayanara Gonzalez DATE: December 26, 2021 TIME: 7:28 AM The patient has undergone major orthopedic surgery and participating in therapy. Pain cannot be managed within an average of 30 MED per day. Patient requiring average of higher than 30 MED per day in order to control pain and allow patient to actively and safely participate in therapy and this is the lowest dose consistent with patient's medical condition. Non-narcotic medication options have been discussed. In addition, the patient has been advised of the benefits and risks of the opioid (including the potential for addiction). Patient demonstrated understanding of risks versus benefits.[facility] [id number] NoteHNO ID: [id number] Author: Wendi Soler APRN.CRNA Service: Anesthesiology Author Type: Nurse Cutter Grinder Type: Anesthesia Procedure Notes Filed: 12/25/2021 12:19 PM Note Text: ANESTHESIOLOGY PROCEDURE NOTE Spinal Block General Information Procedure Start Time/Medication Administration: 12/25/2021 11:58 AM Patient location during procedure: OR Timeout Performed Pre-procedure: timeout performed Consent Obtained: Yes Patient identity confirmed: arm band Reason for Block: primary surgical anesthetic Staffing Performed by: anesthesiologist Preparation Sterility Preparation: hand hygiene performed prior to procedure, sterile gloves, drapes, and procedure tray, surgical cap used, mask used, sterile drape used during line insertion, skin prep agent completely dried prior to procedure Site Prep: Betadine Procedure Details Patient Position: sitting Ultrasound Guided: No Monitoring: Pulse Ox, EKG and NIBP Approach: Midline Location: L3-4 Injection Technique: single-shot Needle Needle Type: cutting Needle Gauge: 22 G Assessment Sensory Level: T10 Events: tolerated well SIGNATURE: Wendi Soler APRN.ELEMENTARY EDUCATION TEACHER PATIENT NAME: Dayanara Gonzalez DATE: December 25, 2021 TIME: 12:18 PM CSN: [id number] NoteHNO ID: [id number] Author: Christopher Torrez MD Service: Anesthesiology Author Type: Anesthesiologist Type: Anesthesia Procedure Notes Filed: 12/25/2021 11:28 AM Note Text: ANESTHESIOLOGY PROCEDURE NOTE Peripheral Nerve Block General Information Procedure Start Time/Medication Administration: 12/25/2021 11:20 AM Procedure End time: 12/25/2021 11:23 AM Patient location during procedure: induction room Timeout Performed Pre-procedure: timeout performed Consent Obtained: Yes Patient identity confirmed: arm band and patient Reason for block: post-op pain management/at surgeon's request Staffing Anesthesiologist: Christopher Torrez MD Performed by: anesthesiologist Preparation Sterility Preparation: hand hygiene performed prior to procedure, sterile gloves, drapes, and procedure tray, surgical cap used, mask used, sterile drape used during line insertion, skin prep agent completely dried prior to procedure Site Prep: Chloraprep Pre-Procedure Neuro Exam Location: RLE Sensory: intact Motor: intact Procedure Details Patient Position: supine Monitoring: Pulse OX, EKG and NIBP Block Type Lower Extremity: distal femoral (adductor canal) Laterality: right Injection Technique: single-shot Ultrasound Guided: Yes Image in Chart: yes Local Infiltration: Yes Needle Needle Gauge: 22 G Needle Length: 83 mm Needle Localization: ultrasound Assessment Injection assessment: negative aspiration, no paresthesia on injection, incremental injection and local visualized surrounding nerve on ultrasound Paresthesia: none Post-Procedure Neuro Exam Expected Regional Anesthesia: Yes Medications Administered Dexamethasone sodium phosphate injection (DECADRON), 10 mg ropivacaine (PF) 5 mg/mL (0.5 %) injection (NAROPIN), 30 mL SIGNATURE: Christopher Torrez MD PATIENT NAME: Dayanara Gonzalez DATE: December 25, 2021 TIME: 11:27 AM CSN: [id number] History of Present illness Narrative* Reji Prakash MD - 12/16/2021 2:00 PM EDT Images from the original note were not included. [facility] [address] [facility] [id number] OUTPATIENT VISIT DATE 12/16/2021 PRIMARY CARE PHYSICIAN: Norm Sharif [address] [place] [address] REFERRING PHYSICIAN: SELF CHIEF COMPLAINT: Palpitations sudden onset lightheadedness HISTORY OF PRESENT ILLNESS: Ms. Gonzalez is a 81 year old with a history of hypertension who came in today for an evaluation of sudden onset feelings of lightheadedness. She tells me she had been seeing another ammonia worker at the [facility]. A few years ago he had done multiple tests including an echocardiogram and a stress test. There were no findings to suggest a cause of her symptoms. They seem to get better after he placed her on metoprolol. She does not started having recurrent symptoms. She describes it as asudden feeling like the room is going dark and she is going to pass out. She has never actually passed out during these episodes. However, they have mostly occurred while she is in a sitting or restin g position. She says the agreement occurred when she has been lying flat. She has no associated feeling of heart racing, diaphoresis, or shortness of breath. She has a longstanding history of shortness of breath on exertion. He had no significant worsening of symptoms. She underwent a hip replacement surgery in July. She is scheduled for right knee replacement next week. She had no problems after her surgery in the fall. She has had no symptoms concerning for CHF including PND, orthopnea, lower extremity edema. PAST MEDICAL HISTORY Diagnosis Date Generalized osteoarthrosis, unspecified site HTN (hypertension) Lung nodule repeat ct in spring, benign Other and unspecified hyperlipidemia PAST SURGICAL HISTORY Procedure Laterality Date COLONOSCOPY 08/26/2005 VJ - scattered tic EGD 08/26/2005 VJ - normal PAST SURGICAL HISTORY OF Right carpal tunnel on the right hand PAST SURGICAL HISTORY OF Right arthoscopy on the right knee PAST SURGICAL HISTORY OF Right 01/2016 ORIF right ankle, 2 small screws remain by Dr. Bedoya TOTAL HIP REPLACEMENT Left 07/17/2021 Left total hip arthroplasty UNSPECIFIED ORAL SURGERY PROCEDURE, BY REPORT wisdom teeth removed. SOCIAL HISTORY Social History Tobacco Use Smoking status: Former Smoker Packs/day: 0.50 Years: 20.00 Pack years: 10.00 Types: Cigarettes Quit date: 11/08/2000 Years since quittin.1 Smokeless tobacco: Never Used Tobacco comment: 2003 quit Vaping Use Vaping Use: Never used Substance Use Topics Alcohol use: No Drug use: No FAMILY HISTORY Problem Relation Age of Onset Heart Mother Hypertension Mother Hypertension Father Renal Disease Father Asthma No Family History COPD No Family History ALLERGIES: ALLERGIES Allergen Reactions Nsaids (Non-Steroid* Other: See Comments Pt. states has cautioned her not to use due to kidney disease Zjhiewj-Hlu-Pyl Red* Myalgia MEDICATIONS: mupirocin (BACTROBAN) 2 % ointment Apply 0.5 inch with cotton swab (Q-tip) to each nostril in the morning and evening for 5 days prior to and including day of surgery. ezetimibe (ZETIA) 10 mg tablet Take 1 tablet by mouth once daily. hydroCHLOROthiazide (HYDRODIURIL, ESIDRIX) 25 mg tablet Take 1 tablet by mouth once daily. lisinopril (ZESTRIL, PRINIVIL) 40 mg tablet Take 1 tablet by mouth once daily. metoprolol succinate ER (TOPROL XL) 100 mg Take 100 mg by mouth once daily. multivitamin tablet Take 1 tablet by mouth once daily. aspirin, enteric coated (ASPIRIN, ENTERIC COATED) 81 mg EC tablet Take 1 tablet by mouth twice daily. REVIEW OF SYSTEMS: Review of Systems Constitutional: Negative for chills, fever, malaise/fatigue and weight loss. HENT: Negative for hearing loss and sore throat. Eyes: Negative for blurred vision and double vision. Respiratory: Positive for shortness of breath. Cardiovascular: Positive for palpitations. Gastrointestinal: Negative. Genitourinary: Negative for dysuria, frequency, hematuria and urgency. Musculoskeletal: Negative. Skin: Negative. Neurological: Negative for dizziness, seizures, loss of consciousness, weakness and headaches. Endo/Heme/Allergies: Negative for environmental allergies. Does not bruise/bleed easily. Psychiatric/Behavioral: Negative for depression. PHYSICAL EXAMINATION: BP 126/72 Pulse 63 Ht 5' 3.5 (1.61m) Wt 235 lb (106.6kg) SpO2 97% BMI 40.97 kg/(m^2). General: Pleasant woman sitting appears comfortable no apparent distress. She is alert and orientedx3 HEENT: Carotid upstrokes are brisk without bruits no JVD appreciated. Pulmonary: Lungs are clear no rales, wheezes, rhonchi Cardiovascular: Normal S1, S2 with regular rate and rhythm. No murmurs, rubs, or gallops Extremities: Warm, well-perfused, no lower extremity edema. Distal pulses are 2- 3+ and symmetric. CARDIOVASCULAR MEDICINE TESTING: Echocardiogram 04/16/2018 CONCLUSIONS: - Technically difficult exam due to body habitus. - Exam indication: Tachycardia - The left ventricle is normal in size. There is mild concentric left ventricular hypertrophy. Leftventricular systolic function is normal. EF = 62 5% (2D 4-ch.) Definity contrast used for endocardial border detection. Normal left ventricular diastolic function. - The right ventricle is normal in size. Right ventricular systolic function is normal. - There are no significant valvular abnormalities. - The patient has not had a prior CC echocardiographic exam for comparison. IMPRESSION: Ms. Gonzalez is a 81 year old woman with a history of hypertension and longstanding history of palpitations and near syncope. Past cardiac work-ups have included echocardiogram, Holter monitor, and pharmacological stress test. There have been no delineation of a cardiac cause for her near syncopal events. PLAN AND RECOMMENDATIONS: 1. Syncope, unspecified syncope type - ICD9: 780.2, ICD10: R55 (primary diagnosis) Symptoms less likely to be vasovagal in nature based on her history. He does have a prior history of atrial arrhythmia which could be contributing to the sporadic nature of her symptoms. However, shehas not had symptoms while exerting herself or standing position. She has a pending surgery on her knee for next week. I have asked her to stop back in the office in the next few weeks for fitting ofa 14-day event monitor. We will also schedule for 2D echocardiogram. - ECHO - PERFLUTREN LIPID MICROSPHERES 1.1 MG/ML INJECTION IN NS 10 ML - SODIUM CHLORIDE 0.9 % (FLUSH) INJECTION SYRINGE - OUTSIDE VENDOR CARDIAC OUTPATIENT EXTENDED RHYTHM RECORDING (WITHOUT TELEMETRY) 2. Palpitations - ICD9: 785.1, ICD10: R00.2 - ECHO - PERFLUTREN LIPID MICROSPHERES 1.1 MG/ML INJECTION IN NS 10 ML - SODIUM CHLORIDE 0.9 % (FLUSH) INJECTION SYRINGE - OUTSIDE VENDOR CARDIAC OUTPATIENT EXTENDED RHYTHM RECORDING (WITHOUT TELEMETRY) 3. Atrial tachycardia (HCC) - ICD9: 427.89, ICD10: I47.1 - ECHO - PERFLUTREN LIPID MICROSPHERES 1.1 MG/ML INJECTION IN NS 10 ML - SODIUM CHLORIDE 0.9 % (FLUSH) INJECTION SYRINGE - OUTSIDE VENDOR CARDIAC OUTPATIENT EXTENDED RHYTHM RECORDING (WITHOUT TELEMETRY) 4. Essential hypertension, benign - ICD9: 401.1, ICD10: I10 Adequately controlled on current regimen. We considered the possibility of orthostatic hypotension or autonomic dysfunction. However, her symptoms almost always have occurred in a sitting or lying position. 5. Mixed hyperlipidemia - ICD9: 272.2, ICD10: E78.2 Reji Prakash MD documented in this encounterWay[facility]04-[facility]22 Instructions* Patient Instructions* Angelica Nelson APRN.RN SURGERY - 12/09/2021 2:30 PM EDT PATIENT PREOPERATIVE INSTRUCTIONS Kapil Yadav MD has scheduled you for your procedure at this surgery center: [facility]: [phone] -- [address] [facility] [address]. Please read below carefully for your personalized instructions. Dietary Restrictions: - No solid food after midnight. - You may have 12 ounces of clear liquids (water, clear juices such as apple juice or gatorade, carbonated beverages, clear tea, black coffee, jello) until 2 hours before scheduled arrival at facility. No red/purple coloring and no creamer/sugar Medications: Unless instructed differently below, stay on all of your medications until your surgery. Approved medications to take the morning of surgery with a sip of water: Zetia, Metoprolol If you start any new medications after today's visit, please contact the surgeon's office. Blood Thinning Medications: - Stop NSAIDS (Ibuprofen, Advil, Aleve, Motrin, Celebrex, Mobic, etc.) 7 days before surgery, as directed by your surgeon. - Stop Aspirin 7 days before surgery, as directed by your surgeon. - Stop Vitamin E, ALL multi-vitamins, herbals and dietary supplements 7 days before surgery. - You may take Tylenol (Acetaminophen) or any of your pain medications that do not contain aspirin or NSAIDS as needed. Important Reminders: - If you use CPAP/BIPAP, bring the machine with you to the surgery center. - If you are prescribed inhalers for breathing, continue using them. - Candy, mints, and tobacco products are NOT permitted the morning of surgery. - Hearing aids, dentures and glasses may be worn the morning of surgery. - NO jewelry, body piercings, makeup, hairpins or contacts are to be worn the day of surgery. If you develop symptoms such as a fever, cold, or flu, or have other changes to your health within TWO DAYS of scheduled surgery or the morning of surgery, please contact the surgery center above. Personal Belongings: -Please have photo ID and insurance cards. -If you do not have a copy of advance directives on file with us, please bring a copy with you on the day of surgery. - Leave ALL valuables and money at home or with family members. For Outpatient Procedures: - YOU MUST HAVE A RESPONSIBLE DEMENTIA PROGRAM DIRECTOR TAKE YOU HOME. A LICENSING REGISTRATION EXAMINER OR INSPECTOR AGRICULTURAL COMMODITIES CANNOT BE MADE A RESPONSIBLE DEMENTIA PROGRAM DIRECTOR. - We recommend that a responsible person stays with you overnight to take care of you. - You cannot stay in a hotel alone after outpatient surgery. You will not be permitted to have yoursurgery, if you do not have someone to take care of you. Arrival Time for Surgery: - The Surgery Center or hospital where you are having surgery will call the afternoon before surgery (or Thursday for Thursday surgery) with a scheduled arrival time. - If you have not heard by 4 pm, please contact the surgery center above. Please be aware that emergency situations arise, which may delay or change your surgical time. If this happens, we will notify you as soon as possible and regret any inconvenience. If you already have an Advance Directive, please fax a copy to [phone] or email to for it to be added to your chart. If you do not have an Advance Directive, you can find the appropriate form and more information at [email or web address]. We recommend that youcomplete the Advance Directive form found on the website and bring it with you the day of your surgery. It can be witnessed and scanned into your chart that day. Angelica Nelson APRN.DANISH documented in this encounterWay[facility]04-04-2022 History and physical note * Angelica Nelson APRN.RN SURGERY - 12/09/2021 2:28 PM EDT HISTORY AND PHYSICAL EXAMINATION SERVICE DATE: 12/09/2021 SERVICE TIME: 2:28 PM PRIMARY CARE PHYSICIAN: Norm Sharif MD REASON FOR VISIT: Dayanara Gonzalez is a 81 year old female who is scheduled for Procedure(s): ARTHROPLASTY REPLACE JOINT TOTAL KNEE (Right) at the request of Dr. Kapil Yadav for consultation. My final recommendation will be communicated back to the requesting physician by way of shared medical record or letter. Subjective The patient has the following: ACTIVE PROBLEM LIST Mixed Hyperlipidemia Pyogenic Granuloma Glomus Tumor Osteoarthritis Essential Hypertension, Benign Morbid Obesity Due to Excess Calories (Hcc) Lung Nodule Ckd (Chronic Kidney Disease) Stage 3, Gfr 30-59 Ml/Min (Hcc) Lightheaded Atrial Tachycardia (Hcc) Ventricular Tachycardia, Nonsustained (Hcc) Chronic Right-Sided Low Back Pain With Right-Sided Sciatica Primary Osteoarthritis of Right Knee Former Smoker History of Total Hip Arthroplasty, Left COVID-19 Immunization Status Overdue - COVID-19 VACCINE (3 - Booster for Pfizer series) Overdue since 09/19/2021 04/19/2021 Imm Admin: COVID-19 vaccine, age 12+ yr (PFIZER-BIONTECH - PURPLE TOP) 03/26/2021 Imm Admin: COVID-19 vaccine, age 12+ yr (PFIZER-BIONTECH - PURPLE TOP) CHIEF COMPLAINT: Pre-op exam HPI: JULIO is a 81 yo seen for PAC due to scheduled above surgery because of OA right knee. 11/07/2021 Dr. Kapil Yadav Dayanara Gonzalez is a 81 year old patient here for evaluation and management of right knee pain. 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 The problem began limiting activities 7-12 months ago. AMB ROOMING INTAKE FLOWSHEET DATA Risk Screening Do you have concerns about personal safety or safety in the home?: No Pain Pain Level: (right knee 0-7 and left knee 0-5) Pain Location: (bilateral knees) Description: Sharp Duration Amount of Time: 3 Duration Units: Years Frequency: Intermittent (only with WB and at HS) Intervention/Comfort measure: Medication Comments: steroid knee injections and Tylenol, no relief from last set of injections Pt. was given 2 steroid knee injections on 07-29-21 by Micheline, but she has no relief from pain thistime. She states prior injections have helped. She describes pain as diffuse and has severe pain inposterior right knee as well. Currently the pain in the joint is rated at 7 out of 10 with minimal activity. The pain is chronic and is located along the outside aspect and in the back. The pain is described as aching, sharp and soreness. Relieving factors include rest. There is no specific incident that brought about this pain. Dayanara Gonzalez also complains of mild discomfort still in her right thigh after hip surgery, in addition to lesser, yet present left knee pain as well. FUNCTIONAL STATUS: Take care of self, that is eating, dressing, bathing, using the toilet (2.75 METs) Walk a block or two on level ground (2.75 METs) Total Joint Arthroplasty: Risk Calculator Dayanara Gonzalez has a 62.47% chance of NOT returning home at discharge for a Primary total Knee replacement. Dayanara's estimated Length of Stay is 3 days. Dayanara's 30 day chance of readmission is 8.46%. Readmission Probability 8.46 % (within 30 days following surgery) Estimated LOS 3 days Discharge Disposition Probability D/C to Home 37.53 % D/C to SNF 62.47 % These calculations are based on the following factors: - 81 years of age - sex is not male - BMI of 40.39 kg/m2 - [facility] score of 0 - 1 hospitalizations in the last 12 months - no history of heart disease - no history of diabetes - history of COPD - no history of anemia - preoperative ambulation: impaired community distances - 2 step(s) to enter home - bed location is on the first floor - bath location is on the first floor - caregiver is occassionally available 2-4 days / week - home is not more than 150 miles away - PROMIS-10 Mental Health T score 41-49 - Marital status: PREVIOUS TREATMENTS: Attempted Weight Loss Medical Treatments: Steroid Injections Left Knee, Steroid Injections Right Knee Physical Therapy: Use of Ambulatory Aid and PT Three Months or Greater 1-2 times per week REVIEW OF SYSTEMS: General: No weight loss, malaise or fevers. Neurological: No history of TIA's, stroke, LENS INSPECTOR tumor, impaired sensorium, hemiplegia, paraplegia orquadraplegia. No neurological symptoms or problems. Respiratory: +former smoker 0.5ppd/10 years +lung nodule. No history of current cough or dyspnea, or pneumonia in the past 6 weeks. No history of respiratory/pulmonary symptoms or problems. Cardiovascular: Positive for: anticoagulation therapy (ASA preventative), arrhythmia (atrial tachycardia, on rx), hyperlipidemia (statin intolerant) and hypertension (on rx) Negative for: atrial fibrillation, CAD, chest pain, CHF, congenital heart defect, DVT/PE, recent IL, murmur/valvular heart disease, open heart surgery and valve surgery. GI: No history of GI symptoms or problems. No history of esophageal varices, recent ascites, or ETOH greater than 2 drinks per day. : Positive for: urinary incontinence (MEI) and renal failure. Patient's renal failure is chronic. Negative for: nephrolithiasis and urinary tract infection. YOUTH DEVELOPMENT PROFESSIONAL: Negative for abnormal vaginal bleeding, abnormal vaginal discharge. Endocrine: No history of diabetes. Has not taken steroids within the past 30 days. No history of endocrinological symptoms or problems. Hematology: Positive for: bruises/bleeds easily and chronic anti-coagulation/platelet meds. Patient is on anti-coagulation/platelet medication(s): Aspirin. Negative for: anemia and transfusion of at least 4 units within 72 hours prior to surgery. 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 Musculoskeletal: +s/p left RACHEL SEE HPI Positive for: back pain and joint pain (shoulders and knees). Skin: Negative for lesions, rash and itching. PAST MEDICAL HISTORY Diagnosis Date Generalized osteoarthrosis, unspecified site HTN (hypertension) Lung nodule repeat ct in spring, benign Other and unspecified hyperlipidemia PAST SURGICAL HISTORY Procedure Laterality Date COLONOSCOPY 08/26/2005 VJ - scattered tic EGD 08/26/2005 VJ - normal PAST SURGICAL HISTORY OF Right carpal tunnel on the right hand PAST SURGICAL HISTORY OF Right arthoscopy on the right knee PAST SURGICAL HISTORY OF Right 01/2016 ORIF right ankle, 2 small screws remain by Dr. Bedoya TOTAL HIP REPLACEMENT Left 07/17/2021 Left total hip arthroplasty UNSPECIFIED ORAL SURGERY PROCEDURE, BY REPORT wisdom teeth removed. FAMILY HISTORY Problem Relation Age of Onset Heart Mother Hypertension Mother Hypertension Father Renal Disease Father Asthma No Family History COPD No Family History Social History Tobacco Use Smoking status: Former Smoker Packs/day: 0.50 Years: 20.00 Pack years: 10.00 Types: Cigarettes Quit date: 11/08/2000 Years since quittin.0 Smokeless tobacco: Never Used Tobacco comment: 2003 quit Vaping Use Vaping Use: Never used Substance Use Topics Alcohol use: No Drug use: No Prior to Admission medications as of 12/09/21 1428 Medication Sig Last Dose Taking ezetimibe (ZETIA) 10 mg tablet Take 1 tablet by mouth once daily. Taking Yes hydroCHLOROthiazide (HYDRODIURIL, ESIDRIX) 25 mg tablet Take 1 tablet by mouth once daily. Taking Yes lisinopril (ZESTRIL, PRINIVIL) 40 mg tablet Take 1 tablet by mouth once daily. Taking Yes metoprolol succinate ER (TOPROL XL) 100 mg Take 100 mg by mouth once daily. Taking Yes multivitamin tablet Take 1 tablet by mouth once daily. Taking Yes aspirin, enteric coated (ASPIRIN, ENTERIC COATED) 81 mg EC tablet Take 1 tablet by mouth twice daily. senna (SENOKOT) 8.6 mg tab Take 2 tablets by mouth daily at bedtime. Patient not taking: Reported on 07/29/2021 RED YEAST RICE ORAL Take by mouth. Patient not taking: Reported on 08/26/2021 coenzyme Q10 (CO Q-10) 100 mg cap capsule Take 100 mg by mouth twice daily. Patient not taking: Reported on 12/09/2021 Not Taking No medication comments found. ALLERGIES Allergen Reactions Nsaids (Non-Steroid* Other: See Comments Pt. states has cautioned her not to use due to kidney disease [id number] Red* Myalgia Objective PHYSICAL EXAM: General: alert and oriented (x3), healthy appearance and morbidly obese. Pertinent negatives noted - not distressed. Skin: normal color, no rash or lesions. HEENT: EOM intact and pupils equal round. Pertinent negatives noted - no carotid bruit. Cardiovascular: regular rate and rhythm, normal S1 and S2, no rub, murmurs, or gallop. Respiratory: normal breath sounds, no wheezes or crackles. No chest wall deformity or tenderness. Abdomen: soft. Pertinent negatives noted - not tender. Extremities: no deformity, no edema or tenderness, no joint swelling or clubbing. Neurological: normal cognition and motor skills. Gait normal. No weakness or sensory deficit. PAIN ASSESSMENT: Pain Pain Level: 7 Pain Location: Knee-Right Description: Dull;Sharp Duration Amount of Time: 3 Duration Units: Years Frequency: Continuous Intervention/Comfort measure: Medication;Exercise VITALS: BP 122/58 Pulse 71 Temp (Src) 97.7 (Temporal) Resp 20 Ht 5' 4 (1.63m) Wt 234 lb (106.1kg) SpO2 97% BMI 40.15 kg/(m^2). Diagnostic tests reviewed for today's visit: Lab Value Units Date High Low HB 11.2 g/dL 08/22/2021 15.5 11.5 HCT 34.8 % 08/22/2021 46.0 36.0 WBC 6.94 k/uL 08/22/2021 11.00 3.70 PLT 291 k/uL 08/22/2021 400 150 NA 141 mmol/L 08/22/2021 144 136 K 4.2 mmol/L 08/22/2021 5.1 3.7 GLUC 92 mg/dL 08/22/2021 99 74 BUN 15 mg/dL 08/22/2021 21 7 CREAT 0.87 mg/dL 08/22/2021 0.96 0.58 PTSEC No results within date range. INR No results within date range. APTT No results within date range. ALT 13 U/L 08/22/2021 38 7 AST 22 U/L 08/22/2021 35 13 TBILI 0.3 mg/dL 08/22/2021 1.3 0.2 TSH 2.260 uU/mL 08/22/2021 4.200 0.270 Lab Value Units Date High Low HCGQT No results within date range. UHCG No results within date range. HCG, BODY* No results within date range. Lab Value Units Date High Low ABORHD O NEGA* no uni* 07/10/2021 ABSCREEN NEG no uni* 07/10/2021 Hemoglobin A1C (%) Date Value 03/22/2021 5.3 11/16/2018 5.3 Recent Results (from the past 8760 hour(s)) ECG COMPLETE Collection Time: 07/10/21 8:59 AM Result Value Ventricular Rate 60 Atrial Rate 60 P-R Interval 144 QRS Duration 84 QT Interval 420 QTC Calculation (Bazett) 420 Calculated P Ren[place] 17 Calculated R Reno 14 Calculated T Reno 54 Impression NORMAL SINUS RHYTHM NORMAL ECG Confirmed by MD REJI, GALA () on 07/11/2021 8:26:54 AM No results found for this or any previous visit (from the past 56170 hour(s)). Assessment Atrial tachycardia (HCC) Assessment: controlled on rx, following [facility], normal stress test 01/2020, EF preserved Chronic right-sided low back pain with right-sided sciatica Assessment: on rx CKD (chronic kidney disease) stage 3, GFR 30-59 ml/min ([facility]) Assessment: Creatinine Date Value Ref Range Status 08/22/2021 0.87 0.58 - 0.96 mg/dL Final 07/18/2021 0.78 0.58 - 0.96 mg/dL Final 07/10/2021 0.82 0.58 - 0.96 mg/dL Final 02/07/2021 0.82 0.58 - 0.96 mg/dL Final Essential hypertension, benign Assessment: controlled on rx Last 14 BP Last 14 Encounter BP Readings: Date: BP: 12/09/2021 122/58 08/22/2021 136/78 07/17/2021 146/71 07/10/2021 166/97 06/10/2021 154/61 05/17/2021 126/82 05/09/2021 168/97 03/22/2021 142/64 03/04/2021 128/72 02/07/2021 172/82 12/21/2020 136/82 11/20/2020 148/81[BP Matt average[ 11/08/2020 122/70 11/05/2020 142/82 Former smoker Assessment: 0.5ppd/10 years, denies asthma or COPD 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 METS: Climb a flight of stairs or walk up a hill (5.50 METs) DASI Score: 5.5; Patient denies any chest pain or undue shortness of breath with the above physicalactivity. Clinical Frailty Scale: 3. Well, with treated comorbid disease ASA Class: 3 ANESTHESIA FINDINGS: Intubation History: No history of difficult intubation Significant Anesthesia Considerations: none Airway History: No history of difficult airway [id number] Score: Age: >=75 Sex: Female CHF history: No Hypertension history: Yes Stroke/TIA/thromboembolism history: No Vascular disease history: No Diabetes history: No Score: 4 I - PHYSICAL EVALUATION AIRWAY Tracheostomy tube not present Mallampati: II. TM distance: >3 FB. Neck ROM: full ROM without neurological symptoms. Mouth opening: adequate. Short neck: no. Thick neck: yes DENTAL Dental findings: teeth intact. II - ANESTHESIA PLAN ASA Score: 3 Anesthetic Plan: other Anesthetic plan additional comments: *PACC - anesthesia choice. Informed Consent Anesthetic risks, benefits, alternatives, personnel and consent discussed: yes. Patient / Responsible Democrat agrees to proceed: yes Patient / Surrogate agrees to blood products: Yes Prepared for Surgery: optimally prepared for surgery, pending (see comment). COVID, labs CONSULTS: Patient does not require consults for optimization at this time The Following Tests/Procedures Have Been Initiated: Orders Placed This Encounter >CBC + AUTO DIFF Standing Status: Future Standing Expiration Date: 02/08/2022 >CMP Standing Status: Future Standing Expiration Date: 02/08/2022 IRON + TIBC Standing Status: Future Standing Expiration Date: 02/08/2022 FERRITIN BLD Standing Status: Future Standing Expiration Date: 02/08/2022 Scheduling Instructions: In preparation for this test, do not take multivitamins or dietary supplements containing biotin (vitamin B7) for at least 12 hours. Biotin is commonly found in hair, skin, and nail supplements and multivitamins. Tell your doctor if you take supplements containing biotin as part of your medication history. Type and Screen, 30 day Standing Status: Future Standing Expiration Date: 02/08/2022 Order Specific Question: Hospital of Planned Surgery or Procedure: Answer: [facility] PRE-PROCEDURE & PRE-OPERATIVE COVID Standing Status: Future Standing ExpirationDate: 12/09/2022 Order Specific Question: List upcoming surgery/procedure: Answer: right TKA Order Specific Question: Symptomatic: Answer: No Order Specific Question: First Test: Answer: No Order Specific Question: Employed in healthcare: Answer: No Order Specific Question: Hospitalized: Answer: No Order Specific Question: Resident in a congregate care setting (nursing homes, psychiatric treatment facilities, group homes, board and care homes, homeless long term, foster care or other setting): Answer: No Order Specific Question: : Answer: No Order Specific Question: Preferred date of testing: Answer: 12/22/2021 Order Specific Question: Date of surgery/procedure: Answer: 12/25/2021 mupirocin (BACTROBAN) 2 % ointment Sig: Apply 0.5 inch with cotton swab (Q-tip) to each nostril in the morning and evening for 5 days prior to and including day of surgery. Dispense: 22 g Refill: 0 Planned Anesthetic: other anesthesia choice Instructions Given to Patient: Instructions located in the after visit summary. Patient given verbal and written preop instructions and voices comprehension and compliance. SIGNATURE: Angelica Nelson APRN.CNP PATIENT NAME: Dayanara Gonzaelz DATE: December 09, 2021 TIME: 2:28 PM PAGER/CONTACT #: documented in this encounterWay[facility]11-14-2021 NoteHNO ID: [id number] Author: Alexander Avina MD Service: General Internal Medicine Author Type: Physician Type: Progress Notes Filed: 07/21/2021 7:56 AM Note Text: INPATIENT CONSULT PROGRESS NOTES Patient Name: Dayanara Gonzalez DATE of SERVICE: 07/21/2021 TIME of SERVICE: 7:55 AM CONSULTING SERVICE: Medicine Plan of care discussed with: Provider, RN, Patient. INTERVAL HPI: pain is well controlled, voiding with out difficulties Patient seen and examined: Blood pressure 152/67, pulse 90, temperature 36.9 ?C (98.4 ?F), temperature source Oral, resp. rate 16, height 160 cm (5' 3 ), weight 109.3 kg (241 lb), SpO2 93 %. Vitals/Meds/Labs/U/O reviewed Alert AND Oriented NO N/V NO light headedness, NO sob CVS ? RRR Lungs ? CTAB Abdomen ? soft, NT, + BS LE ? Ankle No edema, no calf tenderness MEDICATIONS: Current Facility-Administered Medications Medication Dose Route Frequency - gabapentin 100 mg cap(s) (NEURONTIN) 100 mg ORAL TID - lisinopril 40 mg tab(s) (ZESTRIL, PRINIVIL) 40 mg ORAL DAILY - metoprolol succinate ER 100 mg tab(s) (TOPROL XL) 100 mg ORAL DAILY - hydroCHLOROthiazide 25 mg tab(s) (HYDRODIURIL, ESIDRIX) 25 mg ORAL DAILY - sodium chloride 0.9 % (flush) 3-5 mL (BD POSIFLUSH) 3-5 mL INTRAVENOUS q 12 H - NaCl 0.9% iv flush bag 20 mL INTRAVENOUS PRN - ondansetron orally disintegrating 4 mg tab(s) (ZOFRAN ODT) 4 mg ORAL q 6 H PRN Or - ondansetron (PF) 4 mg injection (ZOFRAN) 4 mg INTRAVENOUS q 6 H PRN - magnesium hydroxide 400 mg/5 mL 30 mL (MOM) 30 mL ORAL DAILY PRN - bisacodyl EC 10 mg tab(s) (DULCOLAX) 10 mg ORAL DAILY - aluminum-magnesium hydroxide-simethicone 200-200-20 mg/5 mL 30 mL (MAALOX,MYLANTA,MAG-AL PLUS) 30 mL ORAL q 2 H PRN - ferrous sulfate 325 mg tab(s) 325 mg ORAL DAILY wLUNCH - ascorbic acid (vitamin C) 500 mg tab(s) (VITAMIN C) 500 mg ORAL BID w MEALS - senna 17.2 mg tab(s) (SENOKOT) 17.2 mg ORAL AT BEDTIME - aspirin, enteric coated 81 mg tab(s) 81 mg ORAL BID - oxyCODONE IR 5-10 mg tab(s) (ROXICODONE) 5-10 mg ORAL q 3 H PRN - morphine 4 mg injection 4 mg INTRAVENOUS q 3 H PRN Body mass index is 42.69 kg/m?. DATA: CBC: Recent Labs 07/21/21 0422 HB 9.8* Coags: No results for input(s): PT, INR, APTT in the last 24 hours. CMP: No results for input(s): NA, K, CHLOR, CO2, BUN, CREAT, GLUC, TPROT, CA, MG, ALBUMIN, TBILI, ALKPHOS, ALT, AST, ANION in the last 24 hours. ASSESSMENT AND PLAN: A. 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 Continue PT/OT Hypertension, see parameter for BP med CKD stage III Chronic back pain currently on gabapentin Urinary retension, Discharge to rehab Med reviewed SIGNATURE: Alexander Avina, [facility] [id number] NoteHNO ID: [id number] Author: Danyel Orlando MD Service: Orthopaedic Surgery Author Type: Physician Type: Progress Notes Filed: 07/21/2021 7:01 AM Note Text: POSTOP NOTE ORTHOPEDIC SERVICE DATE: 07/19/2021 SERVICE TIME: 8:13 AM IMPRESSION/PLAN: S/P Procedure(s) (LRB): ARTHROPLASTY REPLACE JOINT TOTAL HIP (Left) on 07/17/2021 OT/Physical Therapy evaluation. Recommending SNF, continue working with PT, may be able to clear for home over the weekend PWB 40-50 lbs LLE, posterior precautions DVT prophylaxis: with aspirin, additional anticoagulant is contraindicated due to bleeding risk and Intermittent pneumatic compression device (IPCD) Pain control Wallace out and voiding Case Management for discharge planning, to rehab today Plan of care discussed with: Provider, RN, Patient. Patient Active Hospital Problem List: History of total hip arthroplasty, left (07/17/2021) POST OPERATIVE COMPLICATIONS: Complicated by uneventful/none SUBJECTIVE: No events PT rec SNF again yesterday Wallace out and voiding Patient pre-cert for [facility], bed available today and patient accepting OBJECTIVE: VITAL SIGNS: BP 152/67 Pulse 90 Temp 36.9 ?C (98.4 ?F) (Oral) Resp 16 Ht 160 cm (5' 3 ) Wt 109.3 kg (241 lb) SpO2 93% BMI 42.69 kg/m? INTAKE AND OUTPUT: Intake/Output Summary (Last 24 hours) at 07/21/2021 0606 Last data filed at 07/20/2021 1213 Gross per 24 hour Intake ? Output 1300 ml Net -1300 ml LABS: Hemoglobin Date Value Ref Range Status 07/20/2021 9.3 (L) 11.5 - 15.5 g/dL Final 07/19/2021 10.3 (L) 11.5 - 15.5 g/dL Final Hematocrit Date Value Ref Range Status 07/10/2021 36.7 36.0 - 46.0 % Final 02/07/2021 37.3 36.0 - 46.0 % Final Platelet Count Date Value Ref Range Status 07/10/2021 294 150 - 400 k/uL Final 02/07/2021 279 150 - 400 k/uL Final WBC Date Value Ref Range Status 07/10/2021 7.16 3.70 - 11.00 k/uL Final 02/07/2021 7.97 3.70 - 11.00 k/uL Final Creatinine Date Value Ref Range Status 07/18/2021 0.78 0.58 - 0.96 mg/dL Final 07/10/2021 0.82 0.58 - 0.96 mg/dL Final Potassium Date Value Ref Range Status 07/18/2021 4.0 3.7 - 5.1 mmol/L Final 07/10/2021 4.0 3.7 - 5.1 mmol/L Final VTE Prophylaxis: Active VTE Risk Category Order: 07/17/211844 VTE RISK CATEGORY: SURGICAL HIGH RISK ([place], [place]) Active VTE Medication Orders: Anticoagulant AND Antiplatelet Medications (From admission, onward) Start Dose Route Frequency Last Action Ordered Stop 07/18/21 0900 aspirin, enteric coated 81 mg tab(s) (Surgical Risk Categories) 81 mg ORAL 2 TIMES DAILY Given, 07/20 204607/17/211839 -- Active VTE Prophylaxis Orders: 07/17/211844 PNEUMATIC COMPRESSION STOCKINGS ([place], [place]) 07/17/211844 ACTIVITY - MOBILIZE PATIENT ([place]) 07/17/211844 ACTIVITY - MOBILIZE PAT[place] ([place] 07/17/211844 ACTIVITY - MOBILIZE PATIENT ([place]) PHYSICAL EXAMINATION: Left Lower Extremity: Dorsalis pedis pulses palpable. Posterior tibial pulses palpable. Dorsi flexion 5/5. Plantar flexion 5/5. Extensor hallucis extension: 5/5. Sensory intact to light touch L5-S1. Dressing clean, dry and intact. Surgical site no drainage and Silverlon intact. DATA: Diagnostic tests reviewed for today's visit: Most recent labs and imaging results. The patient has undergone major orthopedic surgery and participating in therapy. Pain cannot be managed within an average of 30 MED per day. Patient requiring average of higher than 30 MED per day in order to control pain and allow patient to actively and safely participate in therapy and this is the lowest dose consistent with patient's medical condition. Non-narcotic medication options have been discussed. In addition, the patient has been advised of the benefits and risks of the opioid (including the potential for addiction). Patient demonstrated understanding of risks versus benefits.[facility] [id number] NoteHNO ID: [id number] Author: Alexander Avina MD Service: General Internal Medicine Author Type: Physician Type: Progress Notes Filed: 07/20/2021 12:32 PM Note Text: INPATIENT CONSULT PROGRESS NOTES Patient Name: Dayanara Gonzalez DATE of SERVICE: 07/20/2021 TIME of SERVICE: 9:02 CONSULTING SERVICE: Medicine Plan of care discussed with: Provider, RN, Patient. INTERVAL HPI: pain is well controlled Patient seen and examined: Blood pressure 105/66, pulse 95, temperature 36.5 ?C (97.7 ?F), temperature source Oral, resp. rate 16, height 160 cm (5' 3 ), weight 109.3 kg (241 lb), SpO2 92 %. Vitals/Meds/Labs/U/O reviewed Alert Oriented NO N/V NO light headedness, NO sob CVS ? RRR Lungs ? CTAB Abdomen ? soft, NT, + BS LE ? Ankle No edema, no calf tenderness MEDICATIONS: Current Facility-Administered Medications Medication Dose Route Frequency - gabapentin 100 mg cap(s) (NEURONTIN) 100 mg ORAL TID - lisinopril 40 mg tab(s) (ZESTRIL, PRINIVIL) 40 mg ORAL DAILY - metoprolol succinate ER 100 mg tab(s) (TOPROL XL) 100 mg ORAL DAILY - hydroCHLOROthiazide 25 mg tab(s) (HYDRODIURIL, ESIDRIX) 25 mg ORAL DAILY - sodium chloride 0.9 % (flush) 3-5 mL (BD POSIFLUSH) 3-5 mL INTRAVENOUS q 12 H - NaCl 0.9% iv flush bag 20 mL INTRAVENOUS PRN - ondansetron orally disintegrating 4 mg tab(s) (ZOFRAN ODT) 4 mg ORAL q 6 H PRN Or - ondansetron (PF) 4 mg injection (ZOFRAN) 4 mg INTRAVENOUS q 6 H PRN - magnesium hydroxide 400 mg/5 mL 30 mL (MOM) 30 mL ORAL DAILY PRN - bisacodyl EC 10 mg tab(s) (DULCOLAX) 10 mg ORAL DAILY - aluminum-magnesium hydroxide-simethicone 200-200-20 mg/5 mL 30 mL (MAALOX,MYLANTA,MAG-AL PLUS) 30 mL ORAL q 2 H PRN - ferrous sulfate 325 mg tab(s) 325 mg ORAL DAILY wLUNCH - ascorbic acid (vitamin C) 500 mg tab(s) (VITAMIN C) 500 mg ORAL BID w MEALS - senna 17.2 mg tab(s) (SENOKOT) 17.2 mg ORAL AT BEDTIME - aspirin, enteric coated 81 mg tab(s) 81 mg ORAL BID - oxyCODONE IR 5-10 mg tab(s) (ROXICODONE) 5-10 mg ORAL q 3 H PRN - morphine 4 mg injection 4 mg INTRAVENOUS q 3 H PRN Body mass index is 42.69 kg/m?. DATA: CBC: Recent Labs 07/20/21 0440 HB 9.3* Coags: No results for input(s): PT, INR, APTT in the last 24 hours. CMP: No results for input(s): NA, K, CHLOR, CO2, BUN, CREAT, GLUC, TPROT, CA, MG, ALBUMIN, TBILI, ALKPHOS, ALT, AST, ANION in the last 24 hours. ASSESSMENT AND PLAN: A. 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 Continue PT/OT Hypertension, see parameter for BP med CKD stage III Chronic back pain currently on gabapentin Urinary retension, d/c wallace Discussed with PT Home vs rehab SIGNATURE: Alexander Avina, [facility] [id number] NoteHNO ID: [id number] Author: Danyel Orlando MD Service: Orthopaedic Surgery Author Type: Physician Type: Progress Notes Filed: 07/20/2021 7:03 AM Note Text: POSTOP NOTE ORTHOPEDIC SERVICE DATE: 07/19/2021 SERVICE TIME: 8:13 AM IMPRESSION/PLAN: S/P Procedure(s) (LRB): ARTHROPLASTY REPLACE JOINT TOTAL HIP (Left) on 07/17/2021 OT/Physical Therapy evaluation. Recommending SNF, continue working with PT, may be able to clear for home over the weekend PWB 40-50 lbs LLE, posterior precautions DVT prophylaxis: with aspirin, additional anticoagulant is contraindicated due to bleeding risk and Intermittent pneumatic compression device (IPCD) Pain control Wallace to remain x3-4d then voiding trial Case Management for discharge planning Plan of care discussed with: Provider, RN, Patient. Patient Active Hospital Problem List: History of total hip arthroplasty, left (07/17/2021) POST OPERATIVE COMPLICATIONS: Complicated by uneventful/none SUBJECTIVE: No events Pain tolerable and improving PT rec SNF, patient prefers home Wallace placed for retention OBJECTIVE: VITAL SIGNS: BP (!) 113/44 Pulse 82 Temp 37.3 ?C (99.1 ?F) (Oral) Resp 16 Ht 160 cm (5' 3 ) Wt 109.3 kg (241 lb) SpO2 92% BMI 42.69 kg/m? INTAKE AND OUTPUT: Intake/Output Summary (Last 24 hours) at 07/20/2021 0605 Last data filed at 07/19/2021 1000 Gross per 24 hour Intake ? Output 1450 ml Net -1450 ml LABS: Hemoglobin Date Value Ref Range Status 07/20/2021 9.3 (L) 11.5 - 15.5 g/dL Final 07/19/2021 10.3 (L) 11.5 - 15.5 g/dL Final Hematocrit Date Value Ref Range Status 07/10/2021 36.7 36.0 - 46.0 % Final 02/07/2021 37.3 36.0 - 46.0 % Final Platelet Count Date Value Ref Range Status 07/10/2021 294 150 - 400 k/uL Final 02/07/2021 279 150 - 400 k/uL Final WBC Date Value Ref Range Status 07/10/2021 7.16 3.70 - 11.00 k/uL Final 02/07/2021 7.97 3.70 - 11.00 k/uL Final Creatinine Date Value Ref Range Status 07/18/2021 0.78 0.58 - 0.96 mg/dL Final 07/10/2021 0.82 0.58 - 0.96 mg/dL Final Potassium Date Value Ref Range Status 07/18/2021 4.0 3.7 - 5.1 mmol/L Final 07/10/2021 4.0 3.7 - 5.1 mmol/L Final VTE Prophylaxis: Active VTE Risk Category Order: 07/17/211844 VTE RISK CATEGORY: SURGICAL HIGH RISK ([place]) Active VTE Medication Orders: Anticoagulant AND Antiplatelet Medications (From admission, onward) Start Dose Route Frequency Last Action Ordered Stop 07/18/21 0900 aspirin, enteric coated 81 mg tab(s) (Surgical Risk Categories) 81 mg ORAL 2 TIMES DAILY Given, 07/19 205407/17/211839 -- Active VTE Prophylaxis Orders: 07/17/211844 PNEUMATIC COMPRESSION STOCKINGS ([place]) 07/17/211844 ACTIVITY [place] 07/17/211844 ACT[place] 07/17/211844 ACTIVITY - [place] PHYSICAL EXAMINATION: Left Lower Extremity: Dorsalis pedis pulses palpable. Posterior tibial pulses palpable. Dorsi flexion 5/5. Plantar flexion 5/5. Extensor hallucis extension: 5/5. Sensory intact to light touch L5-S1. Dressing clean, dry and intact. Surgical site no drainage and Silverlon intact. DATA: Diagnostic tests reviewed for today's visit: Most recent labs and imaging results. The patient has undergone major orthopedic surgery and participating in therapy. Pain cannot be managed within an average of 30 MED per day. Patient requiring average of higher than 30 MED per day in order to control pain and allow patient to actively and safely participate in therapy and this is the lowest dose consistent with patient's medical condition. Non-narcotic medication options have been discussed. In addition, the patient has been advised of the benefits and risks of the opioid (including the potential for addiction). Patient demonstrated understanding of risks versus benefits.[facility] [id number] NoteHNO ID: [id number] Author: Alexander Avina MD Service: General Internal Medicine Author Type: Physician Type: Progress Notes Filed: 07/19/2021 8:54 AM Note Text: INPATIENT CONSULT PROGRESS NOTES Patient Name: Dayanara Gonzalez DATE of SERVICE: 07/19/2021 TIME of SERVICE: 7:15 CONSULTING SERVICE: Medicine Plan of care discussed with: Provider, RN, Patient. INTERVAL HPI: pain is well controlled.wallace placed for retension Patient seen and examined: Vitals/Meds/Labs/U/O reviewed Alert Oriented NO N/V NO light headedness, NO shortness of breathe CVS ? RRR Lungs ? CTAB Abdomen ? soft, NT, + BS LE ? Ankle No edema, no calf tenderness MEDICATIONS: Current Facility-Administered Medications Medication Dose Route Frequency - gabapentin 100 mg cap(s) (NEURONTIN) 100 mg ORAL TID - lisinopril 40 mg tab(s) (ZESTRIL, PRINIVIL) 40 mg ORAL DAILY - metoprolol succinate ER 100 mg tab(s) (TOPROL XL) 100 mg ORAL DAILY - hydroCHLOROthiazide 25 mg tab(s) (HYDRODIURIL, ESIDRIX) 25 mg ORAL DAILY - sodium chloride 0.9 % (flush) 3-5 mL (BD POSIFLUSH) 3-5 mL INTRAVENOUS q 12 H - NaCl 0.9% iv flush bag 20 mL INTRAVENOUS PRN - ondansetron orally disintegrating 4 mg tab(s) (ZOFRAN ODT) 4 mg ORAL q 6 H PRN Or - ondansetron (PF) 4 mg injection (ZOFRAN) 4 mg INTRAVENOUS q 6 H PRN - magnesium hydroxide 400 mg/5 mL 30 mL (MOM) 30 mL ORAL DAILY PRN - bisacodyl EC 10 mg tab(s) (DULCOLAX) 10 mg ORAL DAILY - aluminum-magnesium hydroxide-simethicone 200-200-20 mg/5 mL 30 mL (MAALOX,MYLANTA,MAG-AL PLUS) 30 mL ORAL q 2 H PRN - ferrous sulfate 325 mg tab(s) 325 mg ORAL DAILY wLUNCH - ascorbic acid (vitamin C) 500 mg tab(s) (VITAMIN C) 500 mg ORAL BID w MEALS - senna 17.2 mg tab(s) (SENOKOT) 17.2 mg ORAL AT BEDTIME - aspirin, enteric coated 81 mg tab(s) 81 mg ORAL BID - oxyCODONE IR 5-10 mg tab(s) (ROXICODONE) 5-10 mg ORAL q 3 H PRN - morphine 4 mg injection 4 mg INTRAVENOUS q 3 H PRN PHYSICAL EXAM: Blood pressure 124/50, pulse 82, temperature 37.5 ?C (99.5 ?F), temperature source Oral, resp. rate 18, height 160 cm (5' 3 ), weight 109.3 kg (241 lb), SpO2 94 %. Body mass index is 42.69 kg/m?. DATA: CBC: Recent Labs 07/19/21 0534 HB 10.3* Coags: No results for input(s): PT, INR, APTT in the last 24 hours. CMP: No results for input(s): NA, K, CHLOR, CO2, BUN, CREAT, GLUC, TPROT, CA, MG, ALBUMIN, TBILI, ALKPHOS, ALT, AST, ANION in the last 24 hours. ASSESSMENT AND PLAN: A. 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 Continue PT/OT Hypertension, controlled continue Prinivil, hydrochlorothiazide and Toprol CKD stage III Chronic back pain currently on gabapentin Urinary retension, voiding trail Possible discharge today SIGNATURE: Alexander Avina, [facility] [id number] NoteHNO ID: [id number] Author: Rubio Luu PA-C Service: Orthopaedic Surgery Author Type: Physician Electronic Resources Librarian Type: Progress Notes Filed: 07/19/2021 8:15 AM Note Text: POSTOP NOTE ORTHOPEDIC SERVICE DATE: 07/19/2021 SERVICE TIME: 8:13 AM IMPRESSION/PLAN: S/P Procedure(s) (LRB): ARTHROPLASTY REPLACE JOINT TOTAL HIP (Left) on 07/17/2021 OT/Physical Therapy evaluation. Recommending SNF PWB 40-50 lbs LLE, posterior precautions DVT prophylaxis: with aspirin, additional anticoagulant is contraindicated due to bleeding risk and Intermittent pneumatic compression device (IPCD) Pain control Case Management for discharge planning Plan of care discussed with: Provider, RN, Patient. Patient Active Hospital Problem List: History of total hip arthroplasty, left (07/17/2021) POST OPERATIVE COMPLICATIONS: Complicated by uneventful/none SUBJECTIVE: Patient states that they are comfortable Well Controlled hip pain. Mild incisional pain. OBJECTIVE: VITAL SIGNS: BP 124/50 Pulse 82 Temp 37.5 ?C (99.5 ?F) (Oral) Resp 18 Ht 160 cm (5' 3 ) Wt 109.3 kg (241 lb) SpO2 94% BMI 42.69 kg/m? INTAKE AND OUTPUT: Intake/Output Summary (Last 24 hours) at 07/19/2021 0813 Last data filed at 07/19/2021 0500 Gross per 24 hour Intake ? Output 2775 ml Net -2775 ml LABS: Hemoglobin Date Value Ref Range Status 07/19/2021 10.3 (L) 11.5 - 15.5 g/dL Final 07/18/2021 10.7 (L) 11.5 - 15.5 g/dL Final Hematocrit Date Value Ref Range Status 07/10/2021 36.7 36.0 - 46.0 % Final 02/07/2021 37.3 36.0 - 46.0 % Final Platelet Count Date Value Ref Range Status 07/10/2021 294 150 - 400 k/uL Final 02/07/2021 279 150 - 400 k/uL Final WBC Date Value Ref Range Status 07/10/2021 7.16 3.70 - 11.00 k/uL Final 02/07/2021 7.97 3.70 - 11.00 k/uL Final Creatinine Date Value Ref Range Status 07/18/2021 0.78 0.58 - 0.96 mg/dL Final 07/10/2021 0.82 0.58 - 0.96 mg/dL Final Potassium Date Value Ref Range Status 07/18/2021 4.0 3.7 - 5.1 mmol/L Final 07/10/2021 4.0 3.7 - 5.1 mmol/L Final VTE Prophylaxis: Active VTE Risk Category Order: 07/17/211844 VTE RISK CATEGORY: SURGICAL HIGH RISK ([place], [place]) Active VTE Medication Orders: Anticoagulant AND Antiplatelet Medications (From admission, onward) Start Dose Route Frequency Last Action Ordered Stop 07/18/21 0900 aspirin, enteric coated 81 mg tab(s) (Surgical Risk Categories) 81 mg ORAL 2 TIMES DAILY Given, 07/18 210807/17/211839 -- Active VTE Prophylaxis Orders: 07/17/211844 PNEUMATIC COMPRESSION STOCKINGS ([place]) 07/17/211844 ACTIVITY - MOBILIZE PATIENT ([place] 07/17/211844 ACTIVITY - MOB[place]IZE [place] 07/17/211844 ACTIVITY - MOBILIZE [place]IENT ([place]) PHYSICAL EXAMINATION: Left Lower Extremity: Dorsalis pedis pulses palpable. Posterior tibial pulses palpable. Dorsi flexion 5/5. Plantar flexion 5/5. Extensor hallucis extension: 5/5. Sensory intact to light touch L1-S1. Dressing clean, dry and intact. Surgical site no drainage and Silverlon intact. Thigh is not swollen, calf is not tender, no signs of DVT or infection Problem Review and Assessment: Skin and Abdominal Wall: Patient monitored, no new events overnight Cardiovascular and Vascular: Patient monitored, no new events overnight Respiratory: Patient monitored, no new events overnight Endocrine and Metabolic: Patient monitored, no new events overnight Gastrointestinal: Patient monitored, no new events overnight Genitourinary and Nephrology: Patient monitored, no new events overnight Behavioral, Cerebrovascular and Nervous: Patient monitored, no new events overnight Infectious: Patient monitored, no new events overnight DATA: Diagnostic tests reviewed for today's visit: Most recent labs and imaging results. SIGNATURE: Rubio Luu PA-C PATIENT NAME: Dayanara Gonzalez DATE: July 19, 2021 TIME: 8:13 AM The patient has undergone major orthopedic surgery and participating in therapy. Pain cannot be managed within an average of 30 MED per day. Patient requiring average of higher than 30 MED per day in order to control pain and allow patient to actively and safely participate in therapy and this is the lowest dose consistent with patient's medical condition. Non-narcotic medication options have been discussed. In addition, the patient has been advised of the benefits and risks of the opioid (including the potential for addiction). Patient demonstrated understanding of risks versus benefits.[facility] [id number] NoteHNO ID: [id number] Author: Alexander Avina MD Service: General Internal Medicine Author Type: Physician Type: Progress Notes Filed: 07/18/2021 8:16 AM Note Text: INPATIENT CONSULT PROGRESS NOTES Patient Name: Dayanara Gonzalez DATE of SERVICE: 07/18/21 TIME of SERVICE: 6:45 CONSULTING SERVICE: Medicine Plan of care discussed with: Provider, RN, Patient. INTERVAL HPI: Uneventful night, pain is well controlled. Patient seen and examined: Vitals/Meds/Labs/U/O reviewed Alert Oriented NO nausea, vomiting NO light headedness, NO shortness of breathe Dry oral mucosa CVS ? RRR Lungs ? Clear to auscultation Abdomen ? soft, NT, + BS LLE ? Ankle No edema RLE ? Ankle No edema MEDICATIONS: Current Facility-Administered Medications Medication Dose Route Frequency - scopolamine - VERIFY patch OTHER q 8 H - scopolamine - REMOVE PATCH OTHER ONCE - gabapentin 100 mg cap(s) (NEURONTIN) 100 mg ORAL TID - lisinopril 40 mg tab(s) (ZESTRIL, PRINIVIL) 40 mg ORAL DAILY - metoprolol succinate ER 100 mg tab(s) (TOPROL XL) 100 mg ORAL DAILY - hydroCHLOROthiazide 25 mg tab(s) (HYDRODIURIL, ESIDRIX) 25 mg ORAL DAILY - sodium chloride 0.9 % (flush) 3-5 mL (BD POSIFLUSH) 3-5 mL INTRAVENOUS q 12 H - NaCl 0.9% iv flush bag 20 mL INTRAVENOUS PRN - ondansetron orally disintegrating 4 mg tab(s) (ZOFRAN ODT) 4 mg ORAL q 6 H PRN Or - ondansetron (PF) 4 mg injection (ZOFRAN) 4 mg INTRAVENOUS q 6 H PRN - magnesium hydroxide 400 mg/5 mL 30 mL (MOM) 30 mL ORAL DAILY PRN - [START ON 07/19/2021] bisacodyl EC 10 mg tab(s) (DULCOLAX) 10 mg ORAL DAILY - aluminum-magnesium hydroxide-simethicone 200-200-20 mg/5 mL 30 mL (MAALOX,MYLANTA,MAG-AL PLUS) 30 mL ORAL q 2 H PRN - ferrous sulfate 325 mg tab(s) 325 mg ORAL DAILY wLUNCH - ascorbic acid (vitamin C) 500 mg tab(s) (VITAMIN C) 500 mg ORAL BID w MEALS - senna 17.2 mg tab(s) (SENOKOT) 17.2 mg ORAL AT BEDTIME - aspirin, enteric coated 81 mg tab(s) 81 mg ORAL BID - oxyCODONE IR 5-10 mg tab(s) (ROXICODONE) 5-10 mg ORAL q 3 H PRN - morphine 4 mg injection 4 mg INTRAVENOUS q 3 H PRN PHYSICAL EXAM: Patient Vitals for the past 24 hrs: BP Temp Temp src Pulse Resp SpO2 Height Weight 07/18/21 0753 (!) 125/48 37.2 ?C (99 ?F) Oral 81 16 93 % ? ? 07/18/21 0418 (!) 103/48 36.6 ?C (97.9 ?F) Oral 82 19 95 % ? ? 07/17/21 2349 120/57 36.9 ?C (98.4 ?F) Oral 77 16 95 % ? ? 07/17/21 1934 (!) 116/42 36.4 ?C (97.5 ?F) Oral 75 18 90 % ? ? 07/17/21 1814 131/56 36.3 ?C (97.3 ?F) Oral 62 18 98 % ? ? 07/17/21 1730 129/61 ? ? 71 16 98 % ? ? 07/17/21 1700 136/63 ? ? 67 16 98 % ? ? 07/17/21 1630 137/65 ? ? 68 16 99 % ? ? 07/17/21 1600 123/59 ? ? 65 16 98 % ? ? 07/17/21 1530 135/60 ? ? 72 16 96 % ? ? 07/17/21 1500 125/55 ? ? 62 16 98 % ? ? 07/17/21 1445 136/67 ? ? 68 16 97 % ? ? 07/17/21 1430 135/62 ? ? 64 16 98 % ? ? 07/17/21 1415 134/62 ? ? 74 16 97 % ? ? 07/17/21 1409 113/57 36.9 ?C (98.4 ?F) ? 79 16 97 % ? ? 07/17/21 0934 169/76 36.4 ?C (97.5 ?F) Temporal Art ? 17 97 % 160 cm (5' 3 ) 109.3 kg (241 lb) Body mass index is 42.69 kg/m?. DATA: CBC: Recent Labs 07/18/21 0609 HB 10.7* Coags: No results for input(s): PT, INR, APTT in the last 24 hours. CMP: Recent Labs 07/18/21 0609 NA 137 K 4.0 CHLOR 101 CO2 26 BUN 15 CREAT 0.78 GLUC 109* CA 8.8 ANION 10 ASSESSMENT AND PLAN: A. 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 Continue PT/OT Hypertension, controlled continue Prinivil, hydrochlorothiazide and Toprol CKD stage III Chronic back pain currently on gabapentin Possible discharge today Meds reviewed. SIGNATURE: Alexander Avina [facility] [id number] NoteHNO ID: [id number] Author: Rubio Luu PA-C Service: Orthopaedic Surgery Author Type: Physician Electronic Resources Librarian Type: Progress Notes Filed: 07/18/2021 7:38 AM Note Text: POSTOP NOTE ORTHOPEDIC SERVICE DATE: 07/18/2021 SERVICE TIME: 7:34 AM IMPRESSION/PLAN: S/P Procedure(s) (LRB): ARTHROPLASTY REPLACE JOINT TOTAL HIP (Left) on 07/17/2021 OT/Physical Therapy evaluation PWB 40-50 lbs LLE, posterior precautions DVT prophylaxis: with aspirin, additional anticoagulant is contraindicated due to bleeding risk and Intermittent pneumatic compression device (IPCD) Pain control Case Management for discharge planning Plan of care discussed with: Provider, RN, Patient. Patient Active Hospital Problem List: History of total hip arthroplasty, left (07/17/2021) POST OPERATIVE COMPLICATIONS: Complicated by uneventful/none SUBJECTIVE: Patient states that they are comfortable Well Controlled hip pain. Denies incisional pain. Patient states she is motivated to work with therapy. OBJECTIVE: VITAL SIGNS: BP (!) 103/48 Pulse 82 Temp 36.6 ?C (97.9 ?F) (Oral) Resp 19 Ht 160 cm (5' 3 ) Wt 109.3 kg (241 lb) SpO2 95% BMI 42.69 kg/m? INTAKE AND OUTPUT: Intake/Output Summary (Last 24 hours) at 07/18/2021 0734 Last data filed at 07/18/2021 0200 Gross per 24 hour Intake 1500 ml Output 850 ml Net 650 ml LABS: Hemoglobin Date Value Ref Range Status 07/18/2021 10.7 (L) 11.5 - 15.5 g/dL Final 07/10/2021 12.2 11.5 - 15.5 g/dL Final Hematocrit Date Value Ref Range Status 07/10/2021 36.7 36.0 - 46.0 % Final 02/07/2021 37.3 36.0 - 46.0 % Final Platelet Count Date Value Ref Range Status 07/10/2021 294 150 - 400 k/uL Final 02/07/2021 279 150 - 400 k/uL Final WBC Date Value Ref Range Status 07/10/2021 7.16 3.70 - 11.00 k/uL Final 02/07/2021 7.97 3.70 - 11.00 k/uL Final Creatinine Date Value Ref Range Status 07/10/2021 0.82 0.58 - 0.96 mg/dL Final 02/07/2021 0.82 0.58 - 0.96 mg/dL Final Potassium Date Value Ref Range Status 07/10/2021 4.0 3.7 - 5.1 mmol/L Final 02/07/2021 3.9 3.7 - 5.1 mmol/L Final VTE Prophylaxis: Active VTE Risk Category Order: 07/17/211844 VTE RISK CATEGORY: SURGICAL HIGH RISK ([place], [place]) Active VTE Medication Orders: Anticoagulant AND Antiplatelet Medications (From admission, onward) Start Dose Route Frequency Last Action Ordered Stop 07/18/21 0900 aspirin, enteric coated 81 mg tab(s) (Surgical Risk Categories) 81 mg ORAL 2 TIMES DAILY Ordered 07/17/211839 -- Active VTE Prophylaxis Orders: 07/17/211844 PNEUMATIC COMPRESSION STOCKINGS ([place]) 07/17/211844 ACTIVITY - MOBILIZE [place] ([place] 07/17/211844 ACTIVITY - [place] 07/17/211844 ACTIVITY - [place]OB[place] PHYSICAL EXAMINATION: Left Lower Extremity: Dorsalis pedis pulses palpable. Posterior tibial pulses palpable. Dorsi flexion 5/5. Plantar flexion 5/5. Extensor hallucis extension: 5/5. Sensory intact to light touch L1-S1. Dressing clean, dry and intact. Surgical site no drainage and Silverlon intact. Thigh is not swollen, calf is not tender, no signs of DVT or infection Problem Review and Assessment: Skin and Abdominal Wall: Patient monitored, no new events overnight Cardiovascular and Vascular: Patient monitored, no new events overnight Respiratory: Patient monitored, no new events overnight Endocrine and Metabolic: Patient monitored, no new events overnight Gastrointestinal: Patient monitored, no new events overnight Genitourinary and Nephrology: Patient monitored, no new events overnight Behavioral, Cerebrovascular and Nervous: Patient monitored, no new events overnight Infectious: Patient monitored, no new events overnight DATA: Diagnostic tests reviewed for today's visit: Most recent labs and imaging results. SIGNATURE: Rubio Luu PA-C PATIENT NAME: Dayanara Gonzalez DATE: July 18, 2021 TIME: 7:34 AM The patient has undergone major orthopedic surgery and participating in therapy. Pain cannot be managed within an average of 30 MED per day. Patient requiring average of higher than 30 MED per day in order to control pain and allow patient to actively and safely participate in therapy and this is the lowest dose consistent with patient's medical condition. Non-narcotic medication options have been discussed. In addition, the patient has been advised of the benefits and risks of the opioid (including the potential for addiction). Patient demonstrated understanding of risks versus benefits.[facility] [id number] NoteHNO ID: [id number] Author: Rubio Luu PA-C Service: Orthopaedic Surgery Author Type: Physician Electronic Resources Librarian Type: Discharge Summary Filed: 07/29/2021 8:00 AM Note Text:[facility] HospitalMuuduqrj65-53-3016 NoteHNO ID: [id number] Author: Barry Hodgson APRN.CRNA Service: ? Author Type: Nurse Cutter Grinder Type: Anesthesia Procedure Notes Filed: 07/17/2021 11:34 AM Note Text: ANESTHESIOLOGY PROCEDURE NOTE Airway General Information Procedure Start Time/Medication Administration: 07/17/2021 11:09 AM Patient location during procedure: OR Timeout Performed Pre-procedure: timeout performed Consent Obtained: Yes Patient identity confirmed: arm band and patient Staffing ELEMENTARY EDUCATION TEACHER: Barry Hodgson APRN.CRNA Other anesthesia staff/rotator: Barry Hodgson APRN.ELEMENTARY EDUCATION TEACHER Performed by: ELEMENTARY EDUCATION TEACHER and anesthesiologist Indications and Patient Condition Preoxygenated: yes Patient position: sniffing Manual In-Line Stabilization: No Difficult Mask: No Indications for airway management: anesthesia and airway protection anesthesia circuit Method: asleep Cricoid Pressure: No Final Airway Details Final airway type: endotracheal airway Final Endotracheal Airway: ETT Cuffed: yes Successful intubation technique: direct laryngoscopy Endotracheal tube insertion site: oral Blade: Axel Blade size: #4 ETT size (mm): 7.0 Measured from: lips Measurement (cm): 22 Placement verified by: chest auscultation and capnometry Cormack-Lehane Classification: grade I - full view of glottis Number of attempts at approach: 1 Failed airway: no Unrecognized esophageal intubation: no Airway not difficult SIGNATURE: Barry Hodgson APRN.ELEMENTARY EDUCATION TEACHER PATIENT NAME: Dayanara Gonzalez DATE: July 17, 2021 TIME: 11:33 AM CSN: [id number] NoteHNO ID: [id number] Author: Morgan Blum III, MD Service: ? Author Type: Physician Type: Progress Notes Filed: 05/23/2021 1:45 PM Note Text: [facility] Name: Dayanara Gonzalez : 1940 Purpose: Follow-Up Evaluation (Telemedicine Encounter) Date: 05/23/2021 - Most recent visit date: 04/18/2021 This is a virtual visit via Zoom, Phone, and/or MyChart. It required patient-provider interaction for the medical decision making as documented below. Patient understands that privacy cannot be guaranteed. Chief Complaint (reason for call): left lower limb pain Interval History: Since last encounter, Dayanara Gonzalez reports that the chronic problem(s) of left lower limb pain are no change. She had Transforaminal Epidural Steroid Injection left L3 and L4 on 05/09/2021, reports no relief of pain - no numbness immediately after the injection. She has had left hip injections in the past, only worked for a few days. Continues taking Neurontin 100mg TID. Compliance: PDMP website checked and validated. All prescriptions have been APPROPRIATELY filled. No suspicious activity was identified. 05/23/2021 by Morgan Blum MD Pain Medications Taken to Date (for the chief complaint): Membrane Stabilizers: Neurontin (Gabapentin) NSAIDS: Motrin (Ibuprofen) Opioids: none Muscle Relaxants: none Topicals: none Other Prescription or OTC Pain Medications: none Non-Pain Meds of Note: None Allergies: Allergies: Ffjzgwn-Wbs-Rho Red* Myalgia Current Medications, Past Medical History, Past Surgical History, Family History AND Social History: Reviewed on today's date (noted in the attribution) Review of Systems: (Obtained personally on today's date, noted in the attribution): - Pertinent Positives: MSK - pain in the region being treated - Neuro: no weakness or numbness in the region being treated - Skin: Negative (No itching) - Eyes: Negative (No blurred or double vision) - Respiratory: Negative (No Cough, Rfpnyupir-if-yjwbsj, Dyspnea on exertion, wheezing) - Cardiovascular: Negative (No Chest Pain, Tightness, Pressure, Palpitations) - Gastrointestinal: Negative (No Abdominal pain, Nausea, Vomiting, Constipation, Diarrhea) - Genitourinary: Negative (No dysuria) - Hematologic: Negative (No bleeding, bruising) - OB: is Denied or Not Applicable - Endocrine: Negative (No hot/cold intolerance) - Psychiatric: Negative (No depression, anxiety or suicidal ideation) Diagnostic Studies: Reviewed Personally on today's date, noted in the attribution MRI Spine Report MRI LUMBAR SPINE WO IVCON Exam End: 01/25/2021 3:36 PM (Final result) Narrative: * * *Final Report* * * DATE OF EXAM: Jan 25 2021 3:36PM WRJulio [id number] - MRI LUMBAR SPINE WO IVCON / PROCEDURE REASON: Spinal stenosis of lumbar region, unspecified whether neurogenic claudication pr * * * * Physician Interpretation * * * * EXAMINATION: MRI LUMBAR SPINE WO IVCON CLINICAL HISTORY: FELL 01/07/21 PAIN LOW BACK RADIATING INTO LT HIP NO SX TECHNIQUE: Routine lumbosacral spine MR protocol without gadolinium. MQ: [id number] COMPARISON: Lumbar radiographs 11/05/2020 RESULT: Counting reference: Lumbosacral junction. For the purposes of this report, L4-5 is considered the level of the iliac crest and assume there are 5 lumbar-type vertebrae. Anatomic variant: None. Localizer images: Superiorly exophytic left renal cyst with additional tiny bilateral renal cysts. Mild hip degenerative changes with small joint effusions. Mild chronic ventral wedging of the T12 and L1 vertebral bodies with mild kyphosis at the L1/2 level. Minimal degenerative retrolisthesis of L2 over L3. Dextrocurvature with the apex at the L3 level. Multilevel degenerative disc disease with loss of disc height and endplate changes. No concerning marrow changes. No acute/subacute posttraumatic changes Bulging disc, loss of disc height, endplate osteophyte formation, facet arthrosis, and some prominence of ligamentum flavum superimposed on congenital short pedicles result in the following degrees of narrowing: T10/11: Mild spinal canal. T11/12: Mild left neural foramen. T12/L1: Mild spinal canal and right subarticular recess. L1/2: Moderate spinal canal and subarticular recesses and mild left neural foramen. L2/3: Severe left subarticular recess, moderate spinal canal and right subarticular recess, moderate to severe left neural foramen, and mild to moderate right neural foramen. L3/4: Severe left subarticular recess, moderate to severe spinal canal and right subarticular recess, moderate to severe left neural foramen, and moderate right neural foramen. L4/5: Severe spinal canal and subarticular recesses eccentric to the left and moderate to severe neural foramina. L5/S1: Moderate to severe subarticular recesses, mild to moderate spinal canal, severe ri (more content not included)...[facility] 05-09-2021 NoteHNO ID: [id number] Author: Brendan Todd Service: ? Author Type: ? Type: Progress Notes Filed: 05/09/2021 2:57 PM Note Text: Dressing dry and intact, no drainage noted. The patient denies numbness, tingling, weakness, shortness of breath, dizziness or headache. Pain level 1/10. Patient given discharge instructions and escorted to transportation via ambulatory method. Patient left in good condition. BRENDAN TODD May 09, 2021 11:31 [facility]09-02-2021 NoteHNO ID: [id number] Author: Brendan Todd Service: ? Author Type: ? Type: Progress Notes Filed: 05/09/2021 2:57 PM Note Text: Subjective HPI ROS PAST MEDICAL HISTORY Diagnosis Date - Generalized osteoarthrosis, unspecified site - HTN (hypertension) - Lung nodule repeat ct in spring, benign - Other and unspecified hyperlipidemia PAST SURGICAL HISTORY Procedure Laterality Date - COLONOSCOPY 08/26/05 VJ - scattered tic - EGD 08/26/05 VJ - normal - PAST SURGICAL HISTORY OF Right carpal tunnel on the right hand - PAST SURGICAL HISTORY OF Right arthoscopy on the right knee - PAST SURGICAL HISTORY OF Right 01/2016 ORIF right ankle, 2 small screws remain by Dr. Bedoya - UNSPECIFIED ORAL SURGERY PROCEDURE, BY REPORT wisdom teeth removed. FAMILY HISTORY Problem Relation Age of Onset - Heart Mother - Hypertension Mother - Hypertension Father - Renal Disease Father - Asthma No Family History - COPD No Family History Social History Tobacco Use - Smoking status: Former Smoker Packs/day: 0.50 Years: 20.00 Pack years: 10.00 Types: Cigarettes Quit date: 11/08/2000 Years since quittin.5 - Smokeless tobacco: Never Used - Tobacco comment: 2003 quit Vaping Use - Vaping Use: Never used Substance Use Topics - Alcohol use: No - Drug use: No Current Meds gabapentin (NEURONTIN) 100 mg capsule Take 2 capsules by mouth three times daily for 60 days. lisinopril (ZESTRIL, PRINIVIL) 5 mg tablet Take 1 tablet by mouth once daily. hydroCHLOROthiazide (HYDRODIURIL, ESIDRIX) 25 mg tablet Take 1 tablet by mouth once daily. metoprolol succinate ER (TOPROL XL) 100 mg Take 100 mg by mouth once daily. RED YEAST RICE ORAL Take by mouth. coenzyme Q10 (CO Q-10) 100 mg cap capsule Take 100 mg by mouth twice daily. Zinc 50 mg tab Take by mouth. biotin 1 mg cap Take 1 mg by mouth once daily. aspirin, enteric coated (ASPIRIN, ENTERIC COATED) 81 mg EC tablet Take 81 mg by mouth once daily. multivitamin tablet Take 1 tablet by mouth once daily. Objective BP 193/82 Pulse 70 [facility] NoteHNO ID: [id number] Author: Josef Gifford MD Service: ? Author Type: Physician Type: Procedures Filed: 05/09/2021 2:57 PM Note Text: PROCEDURE: LEFT L3-L4 and L4-L5 TRANSFORAMINAL EPIDURAL STEROID INJECTION DIAGNOSIS: Radiculopathy, lumbar region (primary encounter diagnosis) DESCRIPTION OF PROCEDURE: The patient was brought to the [facility] procedure room and positioned prone onto the procedure room table. A pillow was placed below the abdomen to decrease lumbar lordosis and a safety strap was placed across the legs. The lumbosacral region was then exposed, prepped, and draped in the usual sterile fashion using 2% Chloroprep scrub. Under fluoroscopic guidance in the AP, oblique, and lateral views, the target foramen was identified. The skin and subcutaneous tissue along the intended needle trajectories were anesthetized with 5 ml of 2% preservative free lidocaine. Once adequate skin anesthesia was obtained, 25-gauge Quincke needle was advanced into the foramen. Once the desired needle tip location was achieved, the needles were aspirated and were negative for heme and CSF. Then a total of 2mL of Omnipaque constrast dye was injected in divided doses under live fluoroscopy and showed appropriate epidural spread without intravascular or intrathecal uptake. After another negative aspiration, 20 mg of Depo-Medrol along with 3 ml of 0.5% preservative free lidocaine was injected at the left L3/4 foramen. The procedure was repeated at the left L4/5 foramen using the same technique and injectate. The needles were removed and bandages were applied. The procedure was completed without complications and was tolerated well. The patient was monitored after the procedure. The patient (or responsible libertarian) was given post-procedure and discharge instructions to follow at home. The patient was discharged in stable condition. A follow up appointment was made. Please see the nursing note for exact times (time out, procedure start, procedure end).[facility]09-02-2021 NoteHNO ID: [id number] Author: Josef Gifford MD Service: ? Author Type: Physician Type: Progress Notes Filed: 05/09/2021 2:57 PM Note Text: [facility] HPI Dayanara Gonzalez is a 80 year old female who presents with pain here for left L3/4 and L4/5 TFESI. Review of Systems Per nursing documentation PAST MEDICAL HISTORY Diagnosis Date - Generalized osteoarthrosis, unspecified site - HTN (hypertension) - Lung nodule repeat ct in spring, benign - Other and unspecified hyperlipidemia PAST SURGICAL HISTORY Procedure Laterality Date - COLONOSCOPY 08/26/05 VJ - scattered tic - EGD 08/26/05 VJ - normal - PAST SURGICAL HISTORY OF Right carpal tunnel on the right hand - PAST SURGICAL HISTORY OF Right arthoscopy on the right knee - PAST SURGICAL HISTORY OF Right 01/2016 ORIF right ankle, 2 small screws remain by Dr. Bedoya - UNSPECIFIED ORAL SURGERY PROCEDURE, BY REPORT wisdom teeth removed. FAMILY HISTORY Problem Relation Age of Onset - Heart Mother - Hypertension Mother - Hypertension Father - Renal Disease Father - Asthma No Family History - COPD No Family History Social History Tobacco Use - Smoking status: Former Smoker Packs/day: 0.50 Years: 20.00 Pack years: 10.00 Types: Cigarettes Quit date: 11/08/2000 Years since quittin.5 - Smokeless tobacco: Never Used - Tobacco comment: 2003 quit Vaping Use - Vaping Use: Never used Substance Use Topics - Alcohol use: No - Drug use: No Current Outpatient Medications on File Prior to Visit Medication Sig - gabapentin (NEURONTIN) 100 mg capsule Take 2 capsules by mouth three times daily for 60 days. - lisinopril (ZESTRIL, PRINIVIL) 5 mg tablet Take 1 tablet by mouth once daily. - hydroCHLOROthiazide (HYDRODIURIL, ESIDRIX) 25 mg tablet Take 1 tablet by mouth once daily. - metoprolol succinate ER (TOPROL XL) 100 mg Take 100 mg by mouth once daily. - RED YEAST RICE ORAL Take by mouth. - coenzyme Q10 (CO Q-10) 100 mg cap capsule Take 100 mg by mouth twice daily. - Zinc 50 mg tab Take by mouth. - biotin 1 mg cap Take 1 mg by mouth once daily. - aspirin, enteric coated (ASPIRIN, ENTERIC COATED) 81 mg EC tablet Take 81 mg by mouth once daily. - multivitamin tablet Take 1 tablet by mouth once daily. No current facility-administered medications on file prior to visit. Attestation Information obtained by others were confirmed and edited as necessary on 05/09/2021 by Josef Gifford MD. Objective Exam: BP 168/97 Pulse 66 Constitutional: normal appearance, AANDO x3 Head: atraumatic, normocephalic Eyes: conjunctiva clear. Cardiovascular: appears well-perfused Pulmonary: non-labored Abdominal: non-distended Skin: no visible rashes or ecchymosis Psychiatric: mood appropriate Neurological: no focal deficits Assessment and Plan: We discussed their current plan and the pathology responsible for the patient's pain. Specific counseling related to the procedure was provided regarding the risks, benefits and alternatives. The patient wishes to proceed with the plan as follows: Encounter Diagnosis ICD-10-CM 1. Radiculopathy, lumbar region M54.16 INJ TRANSFORAMINAL EPID ANES/STER LS SINGL INJ TRANSFRAM EPID ANES/STER LS MULTI methylPREDNISolone acetate 40 mg injection (DEPO-Medrol) lidocaine (PF) 5 mg/mL (0.5 %) 25 mg injection (XYLOCAINE) lidocaine (PF) 20 mg/mL (2 %) 200 mg injection (XYLOCAINE) iohexol 300 mg IV injection (OMNIPAQUE 300) Time out to confirm patient name, date of , procedure site, laterality, and allergies performed by physician. Please see nursing note for exact times (time out, procedure start, procedure end). [place] protocol documentation / Pre-Procedure checklist: ? Unless stated otherwise in the procedure note, the risks include but are not limited to infection, allergic reaction, increased pain, lack of therapeutic benefit, steroid reaction, nerve damage, paralysis, stroke, epidural hematoma, syncope, headache, respiratory or cardiac arrest, pneumothorax, and scar formation ? Time Out was led by the physician in the procedure room, with the patient and all staff present and participating ? The following information was verified: name, date of , procedure site (marked), laterality, anticoagulants and allergies Josef Gifford MD [facility]09-02-2021 Note Procedure (AGSPINE3) DAYANARA GONZALEZ ([id number]) 1940 F Date Time Provider Department 05/09/21 10:50 AM JOSEF GIFFORD AGSPINE3 During your visit today, we recorded the following information about you: Pulse Blood pressure 66/minute 168/97 Anuja Holland 05/09/2021 10:44 AM Signed Procedure being completed: l ltr Health Data Analyst?s Name: mariaa Are you on a blood thinner: no If yes, is a hold required: no Last dose of blood thinner: no INR Result today: no Do you require a Lovenox bridge: no Are you a diabetic: no Are you/or could you be : no Are you taking Xanax for the procedure: no Are you currently on an antibiotic: no Are you currently on a steroid: no RT Makenzie Holland Tech 05/09/2021 2:57 PM Signed Subjective HPI Review of Systems Gastrointestinal: Positive for constipation. PAST MEDICAL HISTORY Diagnosis Date - Generalized osteoarthrosis, unspecified site - HTN (hypertension) - Lung nodule repeat ct in spring, benign - Other and unspecified hyperlipidemia PAST SURGICAL HISTORY Procedure Laterality Date - COLONOSCOPY 08/26/05 VJ - scattered tic - EGD 08/26/05 VJ - normal - PAST SURGICAL HISTORY OF Right carpal tunnel on the right hand - PAST SURGICAL HISTORY OF Right arthoscopy on the right knee - PAST SURGICAL HISTORY OF Right 01/2016 ORIF right ankle, 2 small screws remain by Dr. Bedoya - UNSPECIFIED ORAL SURGERY PROCEDURE, BY REPORT wisdom teeth removed. FAMILY HISTORY Problem Relation Age of Onset - Heart Mother - Hypertension Mother - Hypertension Father - Renal Disease Father - Asthma No Family History - COPD No Family History Social History Tobacco Use - Smoking status: Former Smoker Packs/day: 0.50 Years: 20.00 Pack years: 10.00 Types: Cigarettes Quit date: 11/08/2000 Years since quittin.5 - Smokeless tobacco: Never Used - Tobacco comment: 2003 quit Vaping Use - Vaping Use: Never used Substance Use Topics - Alcohol use: No - Drug use: No Current Meds gabapentin (NEURONTIN) 100 mg capsule Take 2 capsules by mouth three times daily for 60 days. lisinopril (ZESTRIL, PRINIVIL) 5 mg tablet Take 1 tablet by mouth once daily. hydroCHLOROthiazide (HYDRODIURIL, ESIDRIX) 25 mg tablet Take 1 tablet by mouth once daily. metoprolol succinate ER (TOPROL XL) 100 mg Take 100 mg by mouth once daily. RED YEAST RICE ORAL Take by mouth. coenzyme Q10 (CO Q-10) 100 mg cap capsule Take 100 mg by mouth twice daily. Zinc 50 mg tab Take by mouth. biotin 1 mg cap Take 1 mg by mouth once daily. aspirin, enteric coated (ASPIRIN, ENTERIC COATED) 81 mg EC tablet Take 81 mg by mouth once daily. multivitamin tablet Take 1 tablet by mouth once daily. Objective BP 193/82 Pulse 70 Physical Exam Josef Gifford MD 05/09/2021 2:57 PM Signed [facility] HPI Dayanara Gonzalez is a 80 year old female who presents with pain here for left L3/4 and L4/5 TFESI. Review of Systems Per nursing documentation PAST MEDICAL HISTORY Diagnosis Date - Generalized osteoarthrosis, unspecified site - HTN (hypertension) - Lung nodule repeat ct in spring, benign - Other and unspecified hyperlipidemia PAST SURGICAL HISTORY Procedure Laterality Date - COLONOSCOPY 08/26/05 VJ - scattered tic - EGD 08/26/05 VJ - normal - PAST SURGICAL HISTORY OF Right carpal tunnel on the right hand - PAST SURGICAL HISTORY OF Right arthoscopy on the right knee - PAST SURGICAL HISTORY OF Right 01/2016 ORIF right ankle, 2 small screws remain by Dr. Bedoya - UNSPECIFIED ORAL SURGERY PROCEDURE, BY REPORT wisdom teeth removed. FAMILY HISTORY Problem Relation Age of Onset - Heart Mother - Hypertension Mother - Hypertension Father - Renal Disease Father - Asthma No Family History - COPD No Family History Social History Tobacco Use - Smoking status: Former Smoker Packs/day: 0.50 Years: 20.00 Pack years: 10.00 Types: Cigarettes Quit date: 11/08/2000 Years since quittin.5 - Smokeless tobacco: Never Used - Tobacco comment: 2003 quit Vaping Use - Vaping Use: Never used Substance Use Topics - Alcohol use: No - Drug use: No Current Outpatient Medications on File Prior to Visit Medication Sig - gabapentin (NEURONTIN) 100 mg capsule Take 2 capsules by mouth three times daily for 60 days. - lisinopril (ZESTRIL, PRINIVIL) 5 mg tablet Take 1 tablet by mouth once daily. - hydroCHLOROthiazide (HYDRODIURIL, ESIDRIX) 25 mg tablet Take 1 tablet by mouth once daily. - metoprolol succinate ER (TOPROL XL) 100 mg Take 100 mg by mouth once daily. - RED YEAST RICE ORAL Take by mouth. - coenzyme Q10 (CO Q-10) 100 mg cap capsule Take 100 mg by mouth twice daily. - Zinc 50 mg tab Take by mouth. - biotin 1 mg cap Take 1 mg by mouth (more content not included)...[facility]09-02-2021 NoteHNO ID: [id number] Author: Anuja Holland Service: ? Author Type: Intelligence Engineer Type: Progress Notes Filed: 05/09/2021 2:57 PM Note Text: Subjective HPI Review of Systems Gastrointestinal: Positive for constipation. PAST MEDICAL HISTORY Diagnosis Date - Generalized osteoarthrosis, unspecified site - HTN (hypertension) - Lung nodule repeat ct in spring, benign - Other and unspecified hyperlipidemia PAST SURGICAL HISTORY Procedure Laterality Date - COLONOSCOPY 08/26/05 VJ - scattered tic - EGD 08/26/05 VJ - normal - PAST SURGICAL HISTORY OF Right carpal tunnel on the right hand - PAST SURGICAL HISTORY OF Right arthoscopy on the right knee - PAST SURGICAL HISTORY OF Right 01/2016 ORIF right ankle, 2 small screws remain by Dr. Bedoya - UNSPECIFIED ORAL SURGERY PROCEDURE, BY REPORT wisdom teeth removed. FAMILY HISTORY Problem Relation Age of Onset - Heart Mother - Hypertension Mother - Hypertension Father - Renal Disease Father - Asthma No Family History - COPD No Family History Social History Tobacco Use - Smoking status: Former Smoker Packs/day: 0.50 Years: 20.00 Pack years: 10.00 Types: Cigarettes Quit date: 11/08/2000 Years since quittin.5 - Smokeless tobacco: Never Used - Tobacco comment: 2003 quit Vaping Use - Vaping Use: Never used Substance Use Topics - Alcohol use: No - Drug use: No Current Meds gabapentin (NEURONTIN) 100 mg capsule Take 2 capsules by mouth three times daily for 60 days. lisinopril (ZESTRIL, PRINIVIL) 5 mg tablet Take 1 tablet by mouth once daily. hydroCHLOROthiazide (HYDRODIURIL, ESIDRIX) 25 mg tablet Take 1 tablet by mouth once daily. metoprolol succinate ER (TOPROL XL) 100 mg Take 100 mg by mouth once daily. RED YEAST RICE ORAL Take by mouth. coenzyme Q10 (CO Q-10) 100 mg cap capsule Take 100 mg by mouth twice daily. Zinc 50 mg tab Take by mouth. biotin 1 mg cap Take 1 mg by mouth once daily. aspirin, enteric coated (ASPIRIN, ENTERIC COATED) 81 mg EC tablet Take 81 mg by mouth once daily. multivitamin tablet Take 1 tablet by mouth once daily. Objective BP 193/82 Pulse 70 [facility]21 NoteHNO ID: [id number] Author: Chivo Ramirez APRN.[facility] Service: ? Author Type: Nurse Practitioner Type: Progress Notes Filed: 04/18/2021 4:53 PM Note Text: Subjective Dayanara Gonzalez is a 80 year old female who presents With significant left hip and radiating left leg pain into left ankle and lateral aspect of left leg. She also reports intermittent right radiating leg pain into right lateral leg and ankle. This pain is significant she reports 9 out of 10 pain in her hip with ambulation and at rest. She has had a hip injection on the left which provided 5 days of significant relief. She had a fall which precipitated this appointment in which her leg gave out on her. Her MRI of her lumbar spine was done shows significant degeneration and scoliosis. Her orthopedic surgeon recommended a neurosurgery consult, neurosurgery recommended following up with pain management for injection and conservative management follow up for medication refill. Patient had mild relief on lowest dose gabapentin Review of Systems Eyes: Negative for blurred vision and double vision. Respiratory: Negative for shortness of breath. Cardiovascular: Positive for leg swelling. Negative for chest pain. Gastrointestinal: Positive for constipation and diarrhea. Negative for nausea and vomiting. Genitourinary: Negative for dysuria. Skin: Negative for itching. Neurological: Negative for dizziness, tingling, weakness and headaches. Endo/Heme/Allergies: Bruises/bleeds easily. Psychiatric/Behavioral: Negative for depression and suicidal ideas. The patient is not nervous/anxious. PAST MEDICAL HISTORY Diagnosis Date - Generalized osteoarthrosis, unspecified site - HTN (hypertension) - Lung nodule repeat ct in spring, benign - Other and unspecified hyperlipidemia PAST SURGICAL HISTORY Procedure Laterality Date - COLONOSCOPY 08/26/05 VJ - scattered tic - EGD 08/26/05 VJ - normal - PAST SURGICAL HISTORY OF Right carpal tunnel on the right hand - PAST SURGICAL HISTORY OF Right arthoscopy on the right knee - PAST SURGICAL HISTORY OF Right 01/2016 ORIF right ankle, 2 small screws remain by Dr. Bedoya - UNSPECIFIED ORAL SURGERY PROCEDURE, BY REPORT wisdom teeth removed. FAMILY HISTORY Problem Relation Age of Onset - Heart Mother - Hypertension Mother - Hypertension Father - Renal Disease Father - Asthma No Family History - COPD No Family History Social History Tobacco Use - Smoking status: Former Smoker Packs/day: 0.50 Years: 20.00 Pack years: 10.00 Types: Cigarettes Quit date: 11/08/2000 Years since quittin.4 - Smokeless tobacco: Never Used - Tobacco comment: 2003 quit Vaping Use - Vaping Use: Never used Substance Use Topics - Alcohol use: No - Drug use: No Current Meds gabapentin (NEURONTIN) 100 mg capsule Take 1 capsule by mouth three times daily for 31 days. Take 1 pill at bedtime for 5 days; then take 1 pill in the morning and then at night for 5 days, then take 1 in the morning, 1 at mid-day, and 1 at night. lisinopril (ZESTRIL, PRINIVIL) 5 mg tablet Take 1 tablet by mouth once daily. hydroCHLOROthiazide (HYDRODIURIL, ESIDRIX) 25 mg tablet Take 1 tablet by mouth once daily. metoprolol succinate ER (TOPROL XL) 100 mg Take 100 mg by mouth once daily. RED YEAST RICE ORAL Take by mouth. coenzyme Q10 (CO Q-10) 100 mg cap capsule Take 100 mg by mouth twice daily. Zinc 50 mg tab Take by mouth. biotin 1 mg cap Take 1 mg by mouth once daily. aspirin, enteric coated (ASPIRIN, ENTERIC COATED) 81 mg EC tablet Take 81 mg by mouth once daily. multivitamin tablet Take 1 tablet by mouth once daily. Objective Ht 160 cm (5' 3 ) Wt 108.9 kg (240 lb) BMI 42.51 kg/m? Physical Exam INPATIENT TELEPHONE VISIT PROGRESS NOTE SERVICE DATE: 04/18/2021 SERVICE TIME: 4:00 Dayanara Gonzalez has consented to this telephone encounter. Persons Present: patient Chief Complaint/Reason: follow up HPI: see above Data Reviewed: No new labs Assessment and Plan I had a nice discussion with the patient today about their current pain and the pathology that could be causing it. We discussed different treatment options. Our plan will be as follows: --The patient may benefit from increased gabapentin. We discussed the mechanism of action of this medication as well as the side effect profile. I provided the patient with a prescription for 200mg TID to reduce possible SE. --follow up for injection 1. Chronic right-sided low back pain with right-sided sciatica - gabapentin (NEURONTIN) 100 mg capsule; Take 2 capsules by mouth three times daily for 60 days. Dispense: 180 capsule; Refill: 1 I spent 11-20 minutes minutes providing this service. The patient or patient?s admissions representative consented to this telephone encounter. I reviewed all pertinent data. SIGNATURE: Chivo Ramirez APRN.DANISH PATIENT NAME: Dayanara Gonzalez DATE: April 18, 2021 (more content not included)...[facility]07-15-2021 NoteHNO ID: [id number] Author: Chivo Ramirez APRN.DANISH Service: ? Author Type: Nurse Practitioner Type: Progress Notes Filed: 03/21/2021 5:21 PM Note Text: Subjective Dayanara Gonzalez is a 80 year old female who presents With significant left hip and radiating left leg pain into left ankle and lateral aspect of left leg. She also reports intermittent right radiating leg pain into right lateral leg and ankle. This pain is significant she reports 9 out of 10 pain in her hip with ambulation and at rest. She has had a hip injection on the left which provided 5 days of significant relief. She had a fall which precipitated this appointment in which her leg gave out on her. Her MRI of her lumbar spine was done shows significant degeneration and scoliosis. Her orthopedic surgeon recommended a neurosurgery consult, neurosurgery recommended following up with pain management for injection and conservative management Review of Systems Eyes: Negative for blurred vision and double vision. Respiratory: Negative for shortness of breath. Cardiovascular: Positive for leg swelling. Negative for chest pain. Gastrointestinal: Negative for constipation, diarrhea, nausea and vomiting. Genitourinary: Negative for dysuria. Skin: Negative for itching. Neurological: Negative for dizziness, tingling, weakness and headaches. Endo/Heme/Allergies: Bruises/bleeds easily. Psychiatric/Behavioral: Negative for depression and suicidal ideas. The patient is not nervous/anxious. PAST MEDICAL HISTORY Diagnosis Date - Generalized osteoarthrosis, unspecified site - HTN (hypertension) - Lung nodule repeat ct in spring, benign - Other and unspecified hyperlipidemia PAST SURGICAL HISTORY Procedure Laterality Date - COLONOSCOPY 08/26/05 VJ - scattered tic - EGD 08/26/05 VJ - normal - PAST SURGICAL HISTORY OF Right carpal tunnel on the right hand - PAST SURGICAL HISTORY OF Right arthoscopy on the right knee - PAST SURGICAL HISTORY OF Right 01/2016 ORIF right ankle, 2 small screws remain by Dr. Bedoya - UNSPECIFIED ORAL SURGERY PROCEDURE, BY REPORT wisdom teeth removed. FAMILY HISTORY Problem Relation Age of Onset - Heart Mother - Hypertension Mother - Hypertension Father - Renal Disease Father - Asthma No Family History - COPD No Family History Social History Tobacco Use - Smoking status: Former Smoker Packs/day: 0.50 Years: 20.00 Pack years: 10.00 Types: Cigarettes Quit date: 11/08/2000 Years since quittin.3 - Smokeless tobacco: Never Used - Tobacco comment: 2003 quit Vaping Use - Vaping Use: Never used Substance Use Topics - Alcohol use: No - Drug use: No Current Meds lisinopril (ZESTRIL, PRINIVIL) 5 mg tablet Take 1 tablet by mouth once daily. hydroCHLOROthiazide (HYDRODIURIL, ESIDRIX) 25 mg tablet Take 1 tablet by mouth once daily. metoprolol succinate ER (TOPROL XL) 100 mg Take 100 mg by mouth once daily. RED YEAST RICE ORAL Take by mouth. coenzyme Q10 (CO Q-10) 100 mg cap capsule Take 100 mg by mouth twice daily. Zinc 50 mg tab Take by mouth. biotin 1 mg cap Take 1 mg by mouth once daily. aspirin, enteric coated (ASPIRIN, ENTERIC COATED) 81 mg EC tablet Take 81 mg by mouth once daily. multivitamin tablet Take 1 tablet by mouth once daily. Objective Temp 36.6 ?C (97.9 ?F) Ht 160 cm (5' 3 ) Wt 108.9 kg (240 lb) BMI 42.51 kg/m? Physical Exam Constitutional: Appearance: Normal appearance. HENT: Head: Normocephalic and atraumatic. Eyes: Pupils: Pupils are equal, round, and reactive to light. Cardiovascular: Rate and Rhythm: Normal rate. Pulmonary: Effort: Pulmonary effort is normal. Musculoskeletal: Cervical back: Normal range of motion. Lumbar back: Decreased range of motion. Positive left straight leg raise test. Left hip: Tenderness and bony tenderness present. Decreased range of motion. Decreased strength. Skin: General: Skin is dry. Neurological: Mental Status: She is alert and oriented to person, place, and time. GCS: GCS eye subscore is 4. GCS verbal subscore is 5. GCS motor subscore is 6. Sensory: Sensory deficit present. Motor: Weakness present. Gait: Gait abnormal. Deep Tendon Reflexes: Reflex Scores: Patellar reflexes are 1+ on the right side and 1+ on the left side. Achilles reflexes are 1+ on the right side and 1+ on the left side. Comments: Antalgic gait uses crutch as her hip is significantly arthritic --Decreased sensation bilateral lower extremities Psychiatric: Mood and Affect: Mood and affect normal. Cognition and Memory: Memory normal. Judgment: Judgment normal. T10/11: Mild spinal canal. T11/12: Mild left neural foramen. T12/L1: Mild spinal canal and right subarticular recess. L1/2: Moderate spinal canal and subarticular recesses and mild left neural foramen. L2/3: Severe left subarticular recess, moderate spinal canal and right subarticular recess, mod (more content not included)...[facility]01-24-2014 History of Past illness Narrative* Problem Noted Date Resolved Date Dizziness and giddiness 09/30/2013 05/26/20 16 Neoplasm of uncertain behavior of skin 0 01/29/2012 Disturbance of Skin Sensation: tenderness//pain 06/27/2010 01/29/2012 Urticaria 12/12/2009 01/29/2012 Overview: Spontaneous, episodic, lasting about an hour per episode -- started documented as of this encounter (statuses as of 12/09/2021) [facility]01-24-2014 History of Past illness Narrative* Problem Noted Date Resolved Date Dizziness and giddiness 09/30/2013 05/26/20 16 Neoplasm of uncertain behavior of skin 0 01/29/2012 Disturbance of Skin Sensation: tenderness//pain 06/27/2010 01/29/2012 Urticaria 12/12/2009 01/29/2012 Overview: Spontaneous, episodic, lasting about an hour per episode -- started documented as of this encounter (statuses as of 12/16/2021) [facility]01-24-2014 History of Past illness Narrative* Problem Noted Date Resolved Date Dizziness and giddiness 09/30/2013 05/26/20 16 Neoplasm of uncertain behavior of skin 0 01/29/2012 Disturbance of Skin Sensation: tenderness//pain 06/27/2010 01/29/2012 Urticaria 12/12/2009 01/29/2012 Overview: Spontaneous, episodic, lasting about an hour per episode -- started documented as of this encounter (statuses as of 12/30/2021) [facility]01-24-2014 History of Past illness Narrative* Problem Noted Date Resolved Date Dizziness and giddiness 09/30/2013 05/26/20 16 Neoplasm of uncertain behavior of skin 0 01/29/2012 Disturbance of Skin Sensation: tenderness//pain 06/27/2010 01/29/2012 Urticaria 12/12/2009 01/29/2012 Overview: Spontaneous, episodic, lasting about an hour per episode -- started documented as of this encounter (statuses as of 01/01/2022) [facility]01-24-2014 History of Past illness Narrative* Problem Noted Date Resolved Date Dizziness and giddiness 09/30/2013 05/26/20 16 Neoplasm of uncertain behavior of skin 0 01/29/2012 Disturbance of Skin Sensation: tenderness//pain 06/27/2010 01/29/2012 Urticaria 12/12/2009 01/29/2012 Overview: Spontaneous, episodic, lasting about an hour per episode -- started documented as of this encounter (statuses as of 01/06/2022) [facility]01-24-2014 History of Past illness Narrative* Problem Noted Date Resolved Date Dizziness and giddiness 09/30/2013 05/26/20 16 Neoplasm of uncertain behavior of skin 0 01/29/2012 Disturbance of Skin Sensation: tenderness//pain 06/27/2010 01/29/2012 Urticaria 12/12/2009 01/29/2012 Overview: Spontaneous, episodic, lasting about an hour per episode -- started documented as of this encounter (statuses as of 01/07/2022) [facility]01-24-2014 History of Past illness Narrative* Problem Noted Date Resolved Date Dizziness and giddiness 09/30/2013 05/26/20 16 Neoplasm of uncertain behavior of skin 0 01/29/2012 Disturbance of Skin Sensation: tenderness//pain 06/27/2010 01/29/2012 Urticaria 12/12/2009 01/29/2012 Overview: Spontaneous, episodic, lasting about an hour per episode -- started documented as of this encounter (statuses as of 01/14/2022) [facility]01-24-2014 History of Past illness Narrative* Problem Noted Date Resolved Date Dizziness and giddiness 09/30/2013 05/26/20 16 Neoplasm of uncertain behavior of skin 0 01/29/2012 Disturbance of Skin Sensation: tenderness//pain 06/27/2010 01/29/2012 Urticaria 12/12/2009 01/29/2012 Overview: Spontaneous, episodic, lasting about an hour per episode -- started documented as of this encounter (statuses as of 01/14/2022) [facility] History of Past illness Narrative* Problem Noted Date Resolved Date Dizziness and giddiness 09/30/2013 05/26/20 16 Neoplasm of uncertain behavior of skin 0 01/29/2012 Disturbance of Skin Sensation: tenderness//pain 06/27/2010 01/29/2012 Urticaria 12/12/2009 01/29/2012 Overview: Spontaneous, episodic, lasting about an hour per episode -- started [id number] documented as of this encounter (statuses as of 01/24/2022) [facility] Diagnosis Pre-operative examination- Primary Preoperative examination, unspecified Primary osteoarthritis of right knee Primary localized osteoarthrosis, lower leg Essential hypertension, benign Mixed hyperlipidemia Atrial tachycardia (HCC) Other specified cardiac dysrhythmias Ventricular tachycardia, nonsustained (HCC) Paroxysmal ventricular tachycardia Stage 3 chronic kidney disease, unspecified whether stage 3a or 3b CKD (HCC) Lung nodule Solitary pulmonary nodule 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 Former smoker Personal history of tobacco use, presenting hazards to health Morbid obesity due to excess calories (HCC) History of total hip arthroplasty, left Primary osteoarthritis of right knee Primary localized osteoarthrosis, lower leg [facility] Diagnosis Syncope, unspecified syncope type- Primary Palpitations Atrial tachycardia (HCC) Other specified cardiac dysrhythmias Essential hypertension, benign Mixed hyperlipidemia Primary osteoarthritis of right knee Primary localized osteoarthrosis, lower leg [facility] Diagnosis Primary osteoarthritis of right knee- Primary Primary localized osteoarthrosis, lower leg Status post total right knee replacement [facility] Diagnosis Primary osteoarthritis of right knee- Primary Primary localized osteoarthrosis, lower leg [facility] Diagnosis Primary osteoarthritis of right knee Primary localized osteoarthrosis, lower leg Status post total right knee replacement [facility] Diagnosis Palpitations- Primary Syncope, unspecified syncope type Atrial tachycardia (HCC) Other specified cardiac dysrhythmias [facility] Diagnosis Palpitations- Primary Ventricular tachycardia, nonsustained (HCC) Paroxysmal ventricular tachycardia Syncope, unspecified syncope type [facility] Diagnosis History of total right knee replacement- Primary Dyspnea on exertion Other dyspnea and respiratory abnormality [facility] Diagnosis Atrial tachycardia (HCC)- Primary Other specified cardiac dysrhythmias Ventricular tachycardia, nonsustained (HCC) Paroxysmal ventricular tachycardia Essential hypertension, benign Mixed hyperlipidemia Dyspnea on exertion Other dyspnea and respiratory abnormality Stage 3 chronic kidney disease, unspecified whether stage 3a or 3b CKD (HCC) CATHERINE (obstructive sleep apnea) Obstructive sleep apnea (adult) (pediatric) Mild CAD [facility] Procedure not carried out- Primary Procedure not carried out for other reasons [facility] Diagnosis Status post total knee replacement, right [facility] Diagnosis Status post total knee replacement, right- Primary [facility] Diagnosis CATHERINE (obstructive sleep apnea)- Primary Obstructive sleep apnea (adult) (pediatric) [facility]* Diagnosis Dizziness- Primary Dizziness and giddiness Lightheadedness Dizziness and giddiness Essential hypertension, benign Mixed hyperlipidemia Mild CAD Obesity, Class III, BMI 40-49.9 (morbid obesity) (HCC) Morbid obesity Ventricular tachycardia, nonsustained (HCC) Paroxysmal ventricular tachycardia [facility] Diagnosis Dizziness Dizziness and giddiness Lightheadedness Dizziness and giddiness [facility] Diagnosis Atrial fibrillation, unspecified type (HCC)- Primary Bilateral leg edema Edema [facility] Diagnosis Coronary artery disease involving [place] coronary artery of [place] heart without angina pectoris- Primary Paroxysmal atrial fibrillation (HCC) Atrial fibrillation Essential hypertension, benign Mixed hyperlipidemia Statin intolerance Other drug allergy Obesity, Class III, BMI >= 40 Morbid obesity [facility]* Diagnosis Status post left hip replacement- Primary Hip joint replacement by other means Primary osteoarthritis of left hip Primary localized osteoarthrosis, pelvic region and thigh [facility] Diagnosis Bronchitis- Primary Bronchitis, not specified as acute or chronic Essential hypertension, benign Stage 3 chronic kidney disease, unspecified whether stage 3a or 3b CKD (HCC) Urinary incontinence, unspecified type Paroxysmal atrial fibrillation (HCC) Atrial fibrillation Mixed hyperlipidemia Acute constipation Unspecified constipation [facility] Diagnosis Low thyroid stimulating hormone (TSH) level- Primary [facility]* Diagnosis Hypothyroidism, acquired- Primary Unspecified hypothyroidism [facility] Diagnosis Diarrhea, unspecified type- Primary Morbid obesity with BMI of 40.0-44.9, adult (HCC) Morbid obesity Atrial tachycardia (HCC) Other specified cardiac dysrhythmias Chronic kidney disease, stage 3a (HCC) Colitis Other and unspecified noninfectious gastroenteritis and colitis Rectal bleeding Hemorrhage of rectum and anus [facility] Diagnosis Anemia, unspecified type- Primary [facility] Diagnosis Colitis- Primary Other and unspecified noninfectious gastroenteritis and colitis Hypothyroidism, acquired Unspecified hypothyroidism Stage 3 chronic kidney disease, unspecified whether stage 3a or 3b CKD (HCC) Diarrhea, unspecified type Rectal bleeding Hemorrhage of rectum and anus [facility] Diagnosis Hypothyroidism, acquired- Primary Unspecified hypothyroidism [facility] Diagnosis Mixed hyperlipidemia Coronary artery disease involving [place] coronary artery of [place] heart without angina pectoris- Primary Paroxysmal atrial fibrillation (HCC) Atrial fibrillation Essential hypertension, benign Dyspnea on exertion Other dyspnea and respiratory abnormality Mixed hyperlipidemia Statin intolerance Other drug allergy Morbid obesity due to excess calories (HCC) [facility] Diagnosis Coronary artery disease involving [place] coronary artery of [place] heart without angina pectoris- Primary Paroxysmal atrial fibrillation (HCC) Atrial fibrillation Essential hypertension, benign Dyspnea on exertion Other dyspnea and respiratory abnormality Mixed hyperlipidemia Statin intolerance Other drug allergy Morbid obesity due to excess calories (HCC) [facility] Diagnosis Rectal bleeding- Primary Hemorrhage of rectum and anus [facility] Diagnosis Essential hypertension, benign- Primary [facility] Diagnosis Hypothyroidism, acquired- Primary Unspecified hypothyroidism [facility] Diagnosis Atrial tachycardia (HCC)- Primary Other specified cardiac dysrhythmias Ventricular tachycardia, nonsustained (HCC) Paroxysmal ventricular tachycardia Coronary artery disease involving [place] coronary artery of [place] heart without angina pectoris Paroxysmal atrial fibrillation (HCC) Atrial fibrillation Essential hypertension, benign Mixed hyperlipidemia Stage 3 chronic kidney disease, unspecified whether stage 3a or 3b CKD (HCC) Hypothyroidism, acquired Unspecified hypothyroidism Morbid obesity due to excess calories (HCC) [facility] Diagnosis Rash- Primary Rash and other nonspecific skin eruption [facility]* Diagnosis Hypothyroidism, acquired- Primary Unspecified hypothyroidism [facility]* Diagnosis Coronary artery disease involving [place] coronary artery of [place] heart without angina pectoris- Primary Paroxysmal atrial fibrillation (HCC) Atrial fibrillation Palpitations Ventricular tachycardia, nonsustained (HCC) Paroxysmal ventricular tachycardia Essential hypertension, benign Mixed hyperlipidemia Statin intolerance Other drug allergy Bilateral carotid artery stenosis Occlusion and stenosis of carotid artery without mention of cerebral infarction [facility]* Diagnosis Primary osteoarthritis of right knee- Primary Primary localized osteoarthrosis, lower leg History of total right knee replacement [facility] Diagnosis Essential hypertension, benign [facility]* Diagnosis Status post total knee replacement, right- Primary [facility]* Diagnosis Itching- Primary Unspecified pruritic disorder Encounter for immunization Need for other specified prophylactic vaccination against single bacterial disease Neck pain Cervicalgia Pain in both lower extremities Postnasal drip Mixed hyperlipidemia Essential hypertension, benign Coronary artery disease involving [place] coronary artery of [place] heart without angina pectoris Paroxysmal atrial fibrillation (HCC) Atrial fibrillation Hypothyroidism, acquired Unspecified hypothyroidism Stage 3 chronic kidney disease, unspecified whether stage 3a or 3b CKD (HCC) [facility] Diagnosis Polyarthralgia- Primary Pain in joint, multiple sites Hypermagnesemia Disorders of magnesium metabolism Disorder of bone Disorder of bone and cartilage, unspecified [facility] Diagnosis DDD (degenerative disc disease), cervical- Primary Degeneration of cervical intervertebral disc DDD (degenerative disc disease), lumbar Degeneration of lumbar or lumbosacral intervertebral disc [facility]* Diagnosis CATHERINE (obstructive sleep apnea)- Primary Obstructive sleep apnea (adult) (pediatric) [facility] Diagnosis Primary osteoarthritis of right knee Primary localized osteoarthrosis, lower leg History of total right knee replacement [facility]* Diagnosis Polyarthralgia- Primary Pain in joint, multiple sites Mixed hyperlipidemia Lumbar stenosis with neurogenic claudication Spinal stenosis, lumbar region, with neurogenic claudication DDD (degenerative disc disease), cervical Degeneration of cervical intervertebral disc Elevated sed rate Elevated sedimentation rate documented in this encounter [facility] note* Diagnosis Coronary artery disease involving [place] coronary artery of [place] heart without angina pectoris- Primary Paroxysmal atrial fibrillation (HCC) Atrial fibrillation Ventricular tachycardia, nonsustained (HCC) Paroxysmal ventricular tachycardia Essential hypertension, benign Mixed hyperlipidemia Bilateral carotid artery stenosis Occlusion and stenosis of carotid artery without mention of cerebral infarction documented in this encounter [facility] note* Diagnosis Spinal stenosis of lumbar region, unspecified whether neurogenic claudication present Morbid obesity due to excess calories (HCC) documented in this encounter [facility] note* Diagnosis Polyarthralgia- Primary Pain in joint, multiple sites Spinal stenosis of lumbar region, unspecified whether neurogenic claudication present Ecchymosis Other specified circulatory system disorders documented in this encounter [facility] for referral (narrative)* Outpatient Procedure (Routine) - Pending Review Specialty Diagnoses / Procedures Referred By Christin negrete Referred To [facility] Diagnoses Syncope, unspecified syncope type Palpitations Atrial tachycardia (HCC) Procedures ECHO ECHO TTHRC R-T 2D W/WOM-MODE COMPL SPEC&COLR D Reji Prakash MD [address] [place] [id number] [place] [address] Referral ID Status Reason Start Date Expiration Date Visits Requested Visits Authorized [id number] Pending Review Auto-Generat ed Referral 12/16/2021 12/16/2022 1 1 [facility] for referral (narrative)* Diagnostic Procedure Only (Routine) - Pending Review Specialty Diagnoses / Procedures Referred By Christin negrete Referred To Contact XR IMAGING Diagnoses Primary osteoarthritis of right knee Status post total right knee replacement Procedures XR KNEE GENERAL 4V AP BOTH/PA BOTH/LAT/MERC RIGHT RADIOLOGIC EXAM KNEE COMPLETE 4/MORE VIEWS Micheline Rodriguez PA-C [address] [place] [id number] Xr Imaging Referral ID Status Reason Start Date Expiration Date Visits Requested Visits Authorized [id number] Pending Review Auto-Generat ed Referral 01/01/2022 01/31/2023 1 1 [facility] for referral (narrative)* Diagnostic Procedure Only (Routine) - Closed Specialty Diagnoses / Procedures Referred By Contac t Referred To Contact XR IMAGING Diagnoses Primary osteoarthritis of right knee Status post total right knee replacement Procedures XR KNEE GENERAL 4V AP BOTH/PA BOTH/LAT/MERC RIGHT RADIOLOGIC EXAM KNEE COMPLETE 4/MORE VIEWS Micheline Rodriguez PA-C [address] [place] [address] Xr Imaging Referral ID Status Reason Start Date Expiration Date V isits Requested Visits Authorized [id number] Closed Auto-Generate d Referral 01/01/2022 01/31/2023 1 1 [facility] for referral (narrative)* Diagnostic Procedure Only (Routine) - Authorized Specialty Diagnoses / Procedures Referred By Contac t Referred To Contact [facility] Diagnoses CATHERINE (obstructive sleep apnea) Procedures HOME SLEEP APNEA TEST (HSAT) SLEEP STD AIRFLOW HRT RATE&O2 SAT EFFORT Norm Craven MD [address] [place] [address] [facility] [place] [address] [place] [address] Referral ID Status Reason Start Date Expiration Date Visits Requested Visits Authorized [id number] Authorized Auto-Generat ed Referral 02/20/2022 02/20/2023 1 1 [facility] (narrative)* Diagnostic Procedure Only (Routine) - Closed Specialty Diagnoses / Procedures Referred By Contac t Referred To Contact XR IMAGING Diagnoses Status post total knee replacement, right Procedures XR KNEE GENERAL 4V AP BOTH/PA BOTH/LAT/MERC RIGHT RADIOLOGIC EXAM KNEE COMPLETE 4/MORE VIEWS Micheline Rodriguez PA-C [address] [place] [address] Xr Imaging Referral ID Status Reason Start Date Expiration Date V isits Requested Visits Authorized [id number] Closed Auto-Generate d Referral 03/03/2022 04/02/2023 1 1 [facility] for referral (narrative)* Diagnostic Procedure Only (Routine) - Closed Specialty Diagnoses / Procedures Referred By Contac t Referred To Contact XR IMAGING Diagnoses Status post total knee replacement, right Procedures XR KNEE GENERAL 4V AP BOTH/PA BOTH/LAT/MERC RIGHT RADIOLOGIC EXAM KNEE COMPLETE 4/MORE VIEWS Micheline Rodriguez PA-C [address] [place] [address] Xr Imaging Referral ID Status Reason Start Date Expiration Date V isits Requested Visits Authorized [id number] Closed Auto-Generate d Referral 03/03/2022 04/02/2023 1 1 [facility] for referral (narrative)* Outpatient Procedure (Routine) - Authorized Specialty Diagnoses / Procedures Referred By Contac t Referred To Contact [facility] Diagnoses Dizziness Lightheadedness Procedures US CAROTID ARTERIES [facility] LAB DUPLEX SCAN EXTRACRANIAL ART COMPL BI STUDY Kori Palm APRN.CNP [address] [facility] [address] [place] [address] [facility] [place] [address] [place] [address] Referral ID Status Reason Start Date Expiration Date Visits Requested Visits Authorized [id number] Authorized Auto-Generat ed Referral 03/31/2022 03/31/2023 1 1 [facility] for referral (narrative)* Diagnostic Procedure Only (Routine) - Pending Review Specialty Diagnoses / Procedures Referred By Contac t Referred To Contact XR IMAGING Diagnoses Status post left hip replacement Primary osteoarthritis of left hip Procedures XR HIP GENERAL 3V PELV/AP/LAT LEFT RADEX HIP UNILATERAL WITH PELVIS 2-3 VIEWS Kapil Yadav MD [address] [place] [address] Xr Imaging Referral ID Status Reason Start Date Expiration Date Visits Requested Visits Authorized [id number] Pending Review Auto-Generat ed Referral 07/09/2022 08/08/2023 1 1 [facility] for referral (narrative)* Outpatient Procedure (Routine) - Closed Specialty Diagnoses / Procedures Referred By Contac t Referred To Contact [facility] Diagnoses Coronary artery disease involving [place] coronary artery of [place] heart without angina pectoris Procedures ECG COMPLETE ECG ROUTINE ECG W/LEAST 12 LDS W/I&R Reji Prakash MD [address] [place] [address] [facility] [place] [address] [place] [id number] Referral ID Status Reason Start Date Expiration Date V isits Requested Visits Authorized [id number] Closed Auto-Generate d Referral 02/04/2023 02/04/2024 1 1 [facility] for referral (narrative)* Diagnostic Procedure Only (Routine) - Pending Review Specialty Diagnoses / Procedures Referred By Contac t Referred To Contact XR IMAGING Diagnoses Primary osteoarthritis of right knee History of total right knee replacement Procedures XR KNEE GENERAL 4V AP BOTH/PA BOTH/LAT/MERC RIGHT RADIOLOGIC EXAM KNEE COMPLETE 4/MORE VIEWS Kapil Yadav MD [address] [place] [address] Xr Imaging Referral ID Status Reason Start Date Expiration Date Visits Requested Visits Authorized [id number] Pending Review Auto-Generat ed Referral 02/18/2023 03/19/2024 1 1 [facility] for referral (narrative)* Diagnostic Procedure Only (Routine) - Closed Specialty Diagnoses / Procedures Referred By Contac t Referred To Contact XR IMAGING Diagnoses Pain in both lower extremities Procedures XR LUMBAR GENERAL 3V AP/LAT/L5-S1 RADEX SPINE LUMBOSACRAL 2/3 VIEWS Norm Sharif MD [address] [place] [address] [place] [address] Referral ID Status Reason Start Date Expiration Date V isits Requested Visits Authorized [id number] Closed Auto-Generate d Referral 06/22/2023 07/21/2024 1 1 * Diagnostic Procedure Only (Routine) - Closed Specialty Diagnoses / Procedures Referred By Contac t Referred To Contact XR IMAGING Diagnoses Neck pain Procedures XR CERV OTHER 4V AP/LAT/OBL RADEX SPINE CERVICAL 4 OR 5 VIEWS Norm Sharif MD [address] [place] [address] [place] [address] Referral ID Status Reason Start Date Expiration Date V isits Requested Visits Authorized [id number] Closed Auto-Generate d Referral 06/22/2023 07/21/2024 1 1 [facility] for referral (narrative)* Diagnostic Procedure Only (Routine) - Closed Specialty Diagnoses / Procedures Referred By Contac t Referred To Contact XR IMAGING Diagnoses Primary osteoarthritis of right knee History of total right knee replacement Procedures XR KNEE GENERAL 4V AP BOTH/PA BOTH/LAT/MERC RIGHT RADIOLOGIC EXAM KNEE COMPLETE 4/MORE VIEWS Kapil Yadav MD [address] [facility] [place] [address] [place] [address] Referral ID Status Reason Start Date Expiration Date V isits Requested Visits Authorized [id number] Closed Auto-Generate d Referral 02/18/2023 03/19/2024 1 1 [facility] for visit Narrative* Diagnostic Procedure Only (Routine) - Closed Specialty Diagnoses / Procedures Referred By Contac t Referred To Contact XR IMAGING Diagnoses Primary osteoarthritis of right knee Status post total right knee replacement Procedures XR KNEE GENERAL 4V AP BOTH/PA BOTH/LAT/MERC RIGHT RADIOLOGIC EXAM KNEE COMPLETE 4/MORE VIEWS Micheline Rodriguez PA-C [address] [place] [address] Xr Imaging Referral ID Status Reason Start Date Expiration Date V isits Requested Visits Authorized [id number] Closed Auto-Generate d Referral 01/01/2022 01/31/2023 1 1 [facility] for visit Narrative* Diagnostic Procedure Only (Routine) - Closed Specialty Diagnoses / Procedures Referred By Contac t Referred To Contact XR IMAGING Diagnoses Status post total knee replacement, right Procedures XR KNEE GENERAL 4V AP BOTH/PA BOTH/LAT/MERC RIGHT RADIOLOGIC EXAM KNEE COMPLETE 4/MORE VIEWS Micheline Rodriguez PA-C [address] [place] [address] Xr Imaging Referral ID Status Reason Start Date Expiration Date V isits Requested Visits Authorized [id number] Closed Auto-Generate d Referral 03/03/2022 04/02/2023 1 1 [facility] for visit Narrative* Outpatient Procedure (Routine) - Closed Specialty Diagnoses / Procedures Referred By Contac t Referred To Contact [facility] Diagnoses Dizziness Lightheadedness Procedures US CAROTID ARTERIES [facility]AT[facility] LAB DUPLEX SCAN EXTRACRANIAL ART COMPL BI STUDY Kori Palm, SALES ORDER ADMINISTRATOR.RN SURGERY [address] [place] [address] [place] [address] [facility] [place] [address] [place] [address] Referral ID Status Reason Start Date Expiration Date V isits Requested Visits Authorized [id number] Closed Auto-Generate d Referral 03/31/2022 03/31/2023 1 1 [facility] for visit Narrative* Diagnostic Procedure Only (Routine) - Closed Specialty Diagnoses / Procedures Referred By Contac t Referred To Contact XR IMAGING Diagnoses Primary osteoarthritis of right knee History of total right knee replacement Procedures XR KNEE GENERAL 4V AP BOTH/PA BOTH/LAT/MERC RIGHT RADIOLOGIC EXAM KNEE COMPLETE 4/MORE VIEWS Kapil Yadav MD [address] [place] [address] [place] [address] Referral ID Status Reason Start Date Expiration Date V isits Requested Visits Authorized [id number] Closed Auto-Generate d Referral 02/18/2023 03/19/2024 1 1 [facility] Advance Directives No Advanced Directives Records FoundDocuments on File Type Date Recorded 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 Expl 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 Advance Directive(s) 11/27/2021 4:10 PM Advance Directive(s) 07/17/2021 10:00 AM Advance Directive(s) 06/28/2021 1:11 PM Documents on File Type Date Recorded 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 Latcher Expl anation Advance Directive(s) 11/27/2021 4:10 PM Advance Directive(s) 07/17/2021 10:00 AM Advance Directive(s) 06/28/2021 1:11 PM Documents on File Type Date Recorded 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 Latcher Expl anation Advance Directive(s) 02/14/2022 7:19 AM Advance Directive(s) 11/27/2021 4:10 PM Advance Directive(s) 07/17/2021 10:00 AM Advance Directive(s) 06/28/2021 1:11 PM Documents on File Type Date Recorded 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 Latcher Expl anation Advance Directive(s) 02/14/2022 7:19 AM Advance Directive(s) 11/27/2021 4:10 PM Advance Directive(s) 07/17/2021 10:00 AM Advance Directive(s) 06/28/2021 1:11 PM Summary Purpose Family History No Family History Records FoundNo Family History Records FoundNo Family History Records FoundNo Family History Records Found Reason for Referral Specialty Diagnoses / Procedures Referred By Christin negrete Referred To Contact Diagnoses CATHERINE (obstructive sleep apnea) Procedures CONSULT TO SLEEP MEDICINE - ADULT OFFICE/OUTPATIENT [facility] 60-74 MINUTES Norm Sharif MD [address] [place] [address] Referral ID Status Reason Start Date Expiration Date Visits Requested Visits Authorized [id number] Authorized PCP Requested Referral 03/24/2022 03/24/2023 1 1 Specialty Diagnoses / Procedures Referred By Christin t Referred To Contact General Surgery Diagnoses Diarrhea, unspecified type Colitis Rectal bleeding Procedures CONSULT TO GENERAL SURGERY OFFICE/OUTPATIENT [facility] 60-74 MINUTES Norm Sharif MD [address] [place] [address] Referral ID Status Reason Start Date Expiration Date Visits Requested Visits Authorized [id number] Authorized PCP Requested Referral 09/17/2022 09/17/2023 1 1 Specialty Diagnoses / Procedures Referred By Contac t Referred To Contact [facility] Diagnoses DDD (degenerative disc disease), lumbar Procedures CONSULT TO PHYSICAL THERAPY PHYSICAL THERAPY EVALUATION HIGH COMPLEX 45 MINS Norm Sharif MD [address] [place] [address] [facility] [place] [address] [place] [address] Referral ID Status Reason Start Date Expiration Date Visits Requested Visits Authorized [id number] Pending Review Auto-Generat ed Referral 3 06/23/2024 1 1 Additional Source Comments Source Comments (unrecognize d section and content) In the event this informatio n is protected by the Federal Confidentiality of Alcohol and Drug Abuse Patient Records regulations: The Federal rules restrict any use of the information to criminally investigate or prosecute any alcohol or drug abuse patient.[facility] the event this information is protected by the Federal Confidentiality of Alcohol and Drug Abuse Patient Records regulations: The Federal rules restrict any use of the information to criminally investigate or prosecute any alcohol or drug abuse patient.[facility] CampusIn the event this information is protected by the Federal Confidentiality of Alcohol and Drug Abuse Patient Records regulations: The Federal rules restrict any use of the information to criminally investigate or prosecute any alcohol or drug abuse patient.[facility] CampusIn the event this information is protected by the Federal Confidentiality of Alcohol and Drug Abuse Patient Records regulations: The Federal rules restrict any use of the information to criminally investigate or prosecute any alcohol or drug abuse patient.[facility] CampusIn the event this information is protected by the Federal Confidentiality of Alcohol and Drug Abuse Patient Records regulations: The Federal rules restrict any use of the information to criminally investigate or prosecute any alcohol or drug abuse patient.[facility] CampusIn the event this information is protected by the Federal Confidentiality of Alcohol and Drug Abuse Patient Records regulations: The Federal rules restrict any use of the information to criminally investigate or prosecute any alcohol or drug abuse patient.[facility] CampusIn the event this information is protected by the Federal Confidentiality of Alcohol and Drug Abuse Patient Records regulations: The Federal rules restrict any use of the information to criminally investigate or prosecute any alcohol or drug abuse patient.[facility] CampusIn the event this information is protected by the Federal Confidentiality of Alcohol and Drug Abuse Patient Records regulations: The Federal rules restrict any use of the information to criminally investigate or prosecute any alcohol or drug abuse patient.[facility] CampusIn the event this information is protected by the Federal Confidentiality of Alcohol and Drug Abuse Patient Records regulations: The Federal rules restrict any use of the information to criminally investigate or prosecute any alcohol or drug abuse patient.[facility] CampusIn the event this information is protected by the Federal Confidentiality of Alcohol and Drug Abuse Patient Records regulations: The Federal rules restrict any use of the information to criminally investigate or prosecute any alcohol or drug abuse patient.[facility] CampusIn the event this information is protected by the Federal Confidentiality of Alcohol and Drug Abuse Patient Records regulations: The Federal rules restrict any use of the information to criminally investigate or prosecute any alcohol or drug abuse patient.[facility] CampusIn the event this information is protected by the Federal Confidentiality of Alcohol and Drug Abuse Patient Records regulations: The Federal rules restrict any use of the information to criminally investigate or prosecute any alcohol or drug abuse patient.[facility] CampusIn the event this information is protected by the Federal Confidentiality of Alcohol and Drug Abuse Patient Records regulations: The Federal rules restrict any use of the information to criminally investigate or prosecute any alcohol or drug abuse patient.[facility] CampusIn the event this information is protected by the Federal Confidentiality of Alcohol and Drug Abuse Patient Records regulations: The Federal rules restrict any use of the information to criminally investigate or prosecute any alcohol or drug abuse patient.[facility] CampusIn the event this information is protected by the Federal Confidentiality of Alcohol and Drug Abuse Patient Records regulations: The Federal rules restrict any use of the information to criminally investigate or prosecute any alcohol or drug abuse patient.[facility] CampusIn the event this information is protected by the Federal Confidentiality of Alcohol and Drug Abuse Patient Records regulations: The Federal rules restrict any use of the information to criminally investigate or prosecute any alcohol or drug abuse patient.[facility] CampusIn the event this information is protected by the Federal Confidentiality of Alcohol and Drug Abuse Patient Records regulations: The Federal rules restrict any use of the information to criminally investigate or prosecute any alcohol or drug abuse patient.[facility] CampusIn the event this information is protected by the Federal Confidentiality of Alcohol and Drug Abuse Patient Records regulations: The Federal rules restrict any use of the information to criminally investigate or prosecute any alcohol or drug abuse patient.[facility] CampusIn the event this information is protected by the Federal Confidentiality of Alcohol and Drug Abuse Patient Records regulations: The Federal rules restrict any use of the information to criminally investigate or prosecute any alcohol or drug abuse patient.[facility] CampusIn the event this information is protected by the Federal Confidentiality of Alcohol and Drug Abuse Patient Records regulations: The Federal rules restrict any use of the information to criminally investigate or prosecute any alcohol or drug abuse patient.[facility] CampusIn the event this information is protected by the Federal Confidentiality of Alcohol and Drug Abuse Patient Records regulations: The Federal rules restrict any use of the information to criminally investigate or prosecute any alcohol or drug abuse patient.[facility] CampusIn the event this information is protected by the Federal Confidentiality of Alcohol and Drug Abuse Patient Records regulations: The Federal rules restrict any use of the information to criminally investigate or prosecute any alcohol or drug abuse patient.[facility] CampusIn the event this information is protected by the Federal Confidentiality of Alcohol and Drug Abuse Patient Records regulations: The Federal rules restrict any use of the information to criminally investigate or prosecute any alcohol or drug abuse patient.[facility] CampusIn the event this information is protected by the Federal Confidentiality of Alcohol and Drug Abuse Patient Records regulations: The Federal rules restrict any use of the information to criminally investigate or prosecute any alcohol or drug abuse patient.[facility] CampusIn the event this information is protected by the Federal Confidentiality of Alcohol and Drug Abuse Patient Records regulations: The Federal rules restrict any use of the information to criminally investigate or prosecute any alcohol or drug abuse patient.[facility] CampusIn the event this information is protected by the Federal Confidentiality of Alcohol and Drug Abuse Patient Records regulations: The Federal rules restrict any use of the information to criminally investigate or prosecute any alcohol or drug abuse patient.[facility] CampusIn the event this information is protected by the Federal Confidentiality of Alcohol and Drug Abuse Patient Records regulations: The Federal rules restrict any use of the information to criminally investigate or prosecute any alcohol or drug abuse patient.[facility] CampusIn the event this information is protected by the Federal Confidentiality of Alcohol and Drug Abuse Patient Records regulations: The Federal rules restrict any use of the information to criminally investigate or prosecute any alcohol or drug abuse patient.[facility] CampusIn the event this information is protected by the Federal Confidentiality of Alcohol and Drug Abuse Patient Records regulations: The Federal rules restrict any use of the information to criminally investigate or prosecute any alcohol or drug abuse patient.[facility] CampusIn the event this information is protected by the Federal Confidentiality of Alcohol and Drug Abuse Patient Records regulations: The Federal rules restrict any use of the information to criminally investigate or prosecute any alcohol or drug abuse patient.[facility] CampusIn the event this information is protected by the Federal Confidentiality of Alcohol and Drug Abuse Patient Records regulations: The Federal rules restrict any use of the information to criminally investigate or prosecute any alcohol or drug abuse patient.[facility] CampusIn the event this information is protected by the Federal Confidentiality of Alcohol and Drug Abuse Patient Records regulations: The Federal rules restrict any use of the information to criminally investigate or prosecute any alcohol or drug abuse patient.[facility] CampusIn the event this information is protected by the Federal Confidentiality of Alcohol and Drug Abuse Patient Records regulations: The Federal rules restrict any use of the information to criminally investigate or prosecute any alcohol or drug abuse patient.[facility] CampusIn the event this information is protected by the Federal Confidentiality of Alcohol and Drug Abuse Patient Records regulations: The Federal rules restrict any use of the information to criminally investigate or prosecute any alcohol or drug abuse patient.[facility] CampusIn the event this information is protected by the Federal Confidentiality of Alcohol and Drug Abuse Patient Records regulations: The Federal rules restrict any use of the information to criminally investigate or prosecute any alcohol or drug abuse patient.[facility] CampusIn the event this information is protected by the Federal Confidentiality of Alcohol and Drug Abuse Patient Records regulations: The Federal rules restrict any use of the information to criminally investigate or prosecute any alcohol or drug abuse patient.[facility] CampusIn the event this information is protected by the Federal Confidentiality of Alcohol and Drug Abuse Patient Records regulations: The Federal rules restrict any use of the information to criminally investigate or prosecute any alcohol or drug abuse patient.[facility] CampusIn the event this information is protected by the Federal Confidentiality of Alcohol and Drug Abuse Patient Records regulations: The Federal rules restrict any use of the information to criminally investigate or prosecute any alcohol or drug abuse patient.[facility] CampusIn the event this information is protected by the Federal Confidentiality of Alcohol and Drug Abuse Patient Records regulations: The Federal rules restrict any use of the information to criminally investigate or prosecute any alcohol or drug abuse patient.[facility] CampusIn the event this information is protected by the Federal Confidentiality of Alcohol and Drug Abuse Patient Records regulations: The Federal rules restrict any use of the information to criminally investigate or prosecute any alcohol or drug abuse patient.[facility] CampusIn the event this information is protected by the Federal Confidentiality of Alcohol and Drug Abuse Patient Records regulations: The Federal rules restrict any use of the information to criminally investigate or prosecute any alcohol or drug abuse patient.[facility] CampusIn the event this information is protected by the Federal Confidentiality of Alcohol and Drug Abuse Patient Records regulations: The Federal rules restrict any use of the information to criminally investigate or prosecute any alcohol or drug abuse patient.[facility] CampusIn the event this information is protected by the Federal Confidentiality of Alcohol and Drug Abuse Patient Records regulations: The Federal rules restrict any use of the information to criminally investigate or prosecute any alcohol or drug abuse patient.[facility] CampusIn the event this information is protected by the Federal Confidentiality of Alcohol and Drug Abuse Patient Records regulations: The Federal rules restrict any use of the information to criminally investigate or prosecute any alcohol or drug abuse patient.[facility] CampusIn the event this information is protected by the Federal Confidentiality of Alcohol and Drug Abuse Patient Records regulations: The Federal rules restrict any use of the information to criminally investigate or prosecute any alcohol or drug abuse patient.[facility] CampusIn the event this information is protected by the Federal Confidentiality of Alcohol and Drug Abuse Patient Records regulations: The Federal rules restrict any use of the information to criminally investigate or prosecute any alcohol or drug abuse patient.[facility] CampusIn the event this information is protected by the Federal Confidentiality of Alcohol and Drug Abuse Patient Records regulations: The Federal rules restrict any use of the information to criminally investigate or prosecute any alcohol or drug abuse patient.[facility] CampusIn the event this information is protected by the Federal Confidentiality of Alcohol and Drug Abuse Patient Records regulations: The Federal rules restrict any use of the information to criminally investigate or prosecute any alcohol or drug abuse patient.[facility] CampusIn the event this information is protected by the Federal Confidentiality of Alcohol and Drug Abuse Patient Records regulations: The Federal rules restrict any use of the information to criminally investigate or prosecute any alcohol or drug abuse patient.[facility] CampusIn the event this information is protected by the Federal Confidentiality of Alcohol and Drug Abuse Patient Records regulations: The Federal rules restrict any use of the information to criminally investigate or prosecute any alcohol or drug abuse patient.[facility] CampusIn the event this information is protected by the Federal Confidentiality of Alcohol and Drug Abuse Patient Records regulations: The Federal rules restrict any use of the information to criminally investigate or prosecute any alcohol or drug abuse patient.[facility] CampusIn the event this information is protected by the Federal Confidentiality of Alcohol and Drug Abuse Patient Records regulations: The Federal rules restrict any use of the information to criminally investigate or prosecute any alcohol or drug abuse patient.[facility] CampusIn the event this information is protected by the Federal Confidentiality of Alcohol and Drug Abuse Patient Records regulations: The Federal rules restrict any use of the information to criminally investigate or prosecute any alcohol or drug abuse patient.[facility] CampusIn the event this information is protected by the Federal Confidentiality of Alcohol and Drug Abuse Patient Records regulations: The Federal rules restrict any use of the information to criminally investigate or prosecute any alcohol or drug abuse patient.[facility] CampusIn the event this information is protected by the Federal Confidentiality of Alcohol and Drug Abuse Patient Records regulations: The Federal rules restrict any use of the information to criminally investigate or prosecute any alcohol or drug abuse patient.[facility] CampusIn the event this information is protected by the Federal Confidentiality of Alcohol and Drug Abuse Patient Records regulations: The Federal rules restrict any use of the information to criminally investigate or prosecute any alcohol or drug abuse patient.[facility] CampusIn the event this information is protected by the Federal Confidentiality of Alcohol and Drug Abuse Patient Records regulations: The Federal rules restrict any use of the information to criminally investigate or prosecute any alcohol or drug abuse patient.[facility] CampusIn the event this information is protected by the Federal Confidentiality of Alcohol and Drug Abuse Patient Records regulations: The Federal rules restrict any use of the information to criminally investigate or prosecute any alcohol or drug abuse patient.[facility] CampusIn the event this information is protected by the Federal Confidentiality of Alcohol and Drug Abuse Patient Records regulations: The Federal rules restrict any use of the information to criminally investigate or prosecute any alcohol or drug abuse patient.[facility] CampusIn the event this information is protected by the Federal Confidentiality of Alcohol and Drug Abuse Patient Records regulations: The Federal rules restrict any use of the information to criminally investigate or prosecute any alcohol or drug abuse patient.[facility] CampusIn the event this information is protected by the Federal Confidentiality of Alcohol and Drug Abuse Patient Records regulations: The Federal rules restrict any use of the information to criminally investigate or prosecute any alcohol or drug abuse patient.[facility] CampusIn the event this information is protected by the Federal Confidentiality of Alcohol and Drug Abuse Patient Records regulations: The Federal rules restrict any use of the information to criminally investigate or prosecute any alcohol or drug abuse patient.[facility] CampusIn the event this information is protected by the Federal Confidentiality of Alcohol and Drug Abuse Patient Records regulations: The Federal rules restrict any use of the information to criminally investigate or prosecute any alcohol or drug abuse patient.[facility] CampusIn the event this information is protected by the Federal Confidentiality of Alcohol and Drug Abuse Patient Records regulations: The Federal rules restrict any use of the information to criminally investigate or prosecute any alcohol or drug abuse patient.[facility] CampusIn the event this information is protected by the Federal Confidentiality of Alcohol and Drug Abuse Patient Records regulations: The Federal rules restrict any use of the information to criminally investigate or prosecute any alcohol or drug abuse patient.[facility] CampusIn the event this information is protected by the Federal Confidentiality of Alcohol and Drug Abuse Patient Records regulations: The Federal rules restrict any use of the information to criminally investigate or prosecute any alcohol or drug abuse patient.[facility] CampusIn the event this information is protected by the Federal Confidentiality of Alcohol and Drug Abuse Patient Records regulations: The Federal rules restrict any use of the information to criminally investigate or prosecute any alcohol or drug abuse patient.[facility] CampusIn the event this information is protected by the Federal Confidentiality of Alcohol and Drug Abuse Patient Records regulations: The Federal rules restrict any use of the information to criminally investigate or prosecute any alcohol or drug abuse patient.[facility] CampusIn the event this information is protected by the Federal Confidentiality of Alcohol and Drug Abuse Patient Records regulations: The Federal rules restrict any use of the information to criminally investigate or prosecute any alcohol or drug abuse patient.[facility] CampusIn the event this information is protected by the Federal Confidentiality of Alcohol and Drug Abuse Patient Records regulations: The Federal rules restrict any use of the information to criminally investigate or prosecute any alcohol or drug abuse patient.[facility] CampusIn the event this information is protected by the Federal Confidentiality of Alcohol and Drug Abuse Patient Records regulations: The Federal rules restrict any use of the information to criminally investigate or prosecute any alcohol or drug abuse patient.[facility] CampusIn the event this information is protected by the Federal Confidentiality of Alcohol and Drug Abuse Patient Records regulations: The Federal rules restrict any use of the information to criminally investigate or prosecute any alcohol or drug abuse patient.[facility] CampusIn the event this information is protected by the Federal Confidentiality of Alcohol and Drug Abuse Patient Records regulations: The Federal rules restrict any use of the information to criminally investigate or prosecute any alcohol or drug abuse patient.[facility] CampusIn the event this information is protected by the Federal Confidentiality of Alcohol and Drug Abuse Patient Records regulations: The Federal rules restrict any use of the information to criminally investigate or prosecute any alcohol or drug abuse patient.[facility] CampusIn the event this information is protected by the Federal Confidentiality of Alcohol and Drug Abuse Patient Records regulations: The Federal rules restrict any use of the information to criminally investigate or prosecute any alcohol or drug abuse patient.[facility] CampusIn the event this information is protected by the Federal Confidentiality of Alcohol and Drug Abuse Patient Records regulations: The Federal rules restrict any use of the information to criminally investigate or prosecute any alcohol or drug abuse patient.[facility] CampusIn the event this information is protected by the Federal Confidentiality of Alcohol and Drug Abuse Patient Records regulations: The Federal rules restrict any use of the information to criminally investigate or prosecute any alcohol or drug abuse patient.[facility] CampusIn the event this information is protected by the Federal Confidentiality of Alcohol and Drug Abuse Patient Records regulations: The Federal rules restrict any use of the information to criminally investigate or prosecute any alcohol or drug abuse patient.[facility] CampusIn the event this information is protected by the Federal Confidentiality of Alcohol and Drug Abuse Patient Records regulations: The Federal rules restrict any use of the information to criminally investigate or prosecute any alcohol or drug abuse patient.[facility] CampusIn the event this information is protected by the Federal Confidentiality of Alcohol and Drug Abuse Patient Records regulations: The Federal rules restrict any use of the information to criminally investigate or prosecute any alcohol or drug abuse patient.[facility] CampusIn the event this information is protected by the Federal Confidentiality of Alcohol and Drug Abuse Patient Records regulations: The Federal rules restrict any use of the information to criminally investigate or prosecute any alcohol or drug abuse patient.[facility] CampusIn the event this information is protected by the Federal Confidentiality of Alcohol and Drug Abuse Patient Records regulations: The Federal rules restrict any use of the information to criminally investigate or prosecute any alcohol or drug abuse patient.[facility] CampusIn the event this information is protected by the Federal Confidentiality of Alcohol and Drug Abuse Patient Records regulations: The Federal rules restrict any use of the information to criminally investigate or prosecute any alcohol or drug abuse patient.[facility] CampusIn the event this information is protected by the Federal Confidentiality of Alcohol and Drug Abuse Patient Records regulations: The Federal rules restrict any use of the information to criminally investigate or prosecute any alcohol or drug abuse patient.[facility] CampusIn the event this information is protected by the Federal Confidentiality of Alcohol and Drug Abuse Patient Records regulations: The Federal rules restrict any use of the information to criminally investigate or prosecute any alcohol or drug abuse patient.[facility] CampusIn the event this information is protected by the Federal Confidentiality of Alcohol and Drug Abuse Patient Records regulations: The Federal rules restrict any use of the information to criminally investigate or prosecute any alcohol or drug abuse patient.[facility] CampusIn the event this information is protected by the Federal Confidentiality of Alcohol and Drug Abuse Patient Records regulations: The Federal rules restrict any use of the information to criminally investigate or prosecute any alcohol or drug abuse patient.[facility] CampusIn the event this information is protected by the Federal Confidentiality of Alcohol and Drug Abuse Patient Records regulations: The Federal rules restrict any use of the information to criminally investigate or prosecute any alcohol or drug abuse patient.[facility] CampusIn the event this information is protected by the Federal Confidentiality of Alcohol and Drug Abuse Patient Records regulations: The Federal rules restrict any use of the information to criminally investigate or prosecute any alcohol or drug abuse patient.[facility] CampusIn the event this information is protected by the Federal Confidentiality of Alcohol and Drug Abuse Patient Records regulations: The Federal rules restrict any use of the information to criminally investigate or prosecute any alcohol or drug abuse patient.[facility] CampusIn the event this information is protected by the Federal Confidentiality of Alcohol and Drug Abuse Patient Records regulations: The Federal rules restrict any use of the information to criminally investigate or prosecute any alcohol or drug abuse patient.[facility] CampusIn the event this information is protected by the Federal Confidentiality of Alcohol and Drug Abuse Patient Records regulations: The Federal rules restrict any use of the information to criminally investigate or prosecute any alcohol or drug abuse patient.[facility] CampusIn the event this information is protected by the Federal Confidentiality of Alcohol and Drug Abuse Patient Records regulations: The Federal rules restrict any use of the information to criminally investigate or prosecute any alcohol or drug abuse patient.[facility] CampusIn the event this information is protected by the Federal Confidentiality of Alcohol and Drug Abuse Patient Records regulations: The Federal rules restrict any use of the information to criminally investigate or prosecute any alcohol or drug abuse patient.[facility] CampusIn the event this information is protected by the Federal Confidentiality of Alcohol and Drug Abuse Patient Records regulations: The Federal rules restrict any use of the information to criminally investigate or prosecute any alcohol or drug abuse patient.[facility] CampusIn the event this information is protected by the Federal Confidentiality of Alcohol and Drug Abuse Patient Records regulations: The Federal rules restrict any use of the information to criminally investigate or prosecute any alcohol or drug abuse patient.[facility] CampusIn the event this information is protected by the Federal Confidentiality of Alcohol and Drug Abuse Patient Records regulations: The Federal rules restrict any use of the information to criminally investigate or prosecute any alcohol or drug abuse patient.[facility] CampusIn the event this information is protected by the Federal Confidentiality of Alcohol and Drug Abuse Patient Records regulations: The Federal rules restrict any use of the information to criminally investigate or prosecute any alcohol or drug abuse patient.[facility] Reason for Visit (unrecogniz ed section and content) Reason Comments New Patient Dizziness Shortness of Breath 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 Reason Comments Established Patient Post Op Reason Comments Patient Update 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 Reason Comments 6 Month Exam Reason Comments right knee, hand and elbow pain fell thi s am Reason Comments Knee pain after fall yesterday Reason Comments HSAT Check In (Adult) Reason Comments Results - Sleep Study Reason Comments Established Patient Reason Onset Date Comments Community Monitoring Outreach 04/11/2022 in Sight Enrollment Reason Onset Date Comments Community MOnitoring Outreach 04/11/2022 in Sight Reason Comments Results Reason Onset Date Comments Community Monitoring Outreach 05/05/2022 in Sight Reason Onset Date Comments Community Monitoring Outreach 05/06/2022 in Sight Reason Onset Date Comments Refill Request 05/13/2022 Reason Onset Date Comments Community Monitoring Outreach 05/29/2022 In Sight Reason Comments Escalation of Care Reason Onset Date Comments Community Monitoring Outreach 05/30/2022 Es calation follow up Reason Comments Hospital Follow Up Reason Onset Date Comments Opened In Error 06/02/2022 Opened in Error Reason Onset Date Comments Community Monitoring Outreach 06/26/2022 in Sight Reason Onset Date Comments Community Monitoring Outreach 07/25/2022 CD M telephonic outreach Reason Onset Date Comments Refill Request 08/06/2022 Reason Onset Date Comments Community Monitoring Outreach 08/21/2022 CD M telephonic outreach Reason Onset Date Comments Community Monitoring Outreach 08/22/2022 CD M telephonic outreach Reason Comments 6 Month Exam Reason Comments ER F/U Reason Comments Follow Up 1 week follow up Reason Onset Date Comments Refill Request 10/02/2022 Reason Comments Follow Up Reason Comments Consult ER follow up, rectal bleeding, diarrhea and colitis Specialty Diagnoses / Procedures Referred By Contac t Referred To Contact General Surgery Diagnoses Diarrhea, unspecified type Colitis Rectal bleeding Procedures CONSULT TO GENERAL SURGERY OFFICE/OUTPATIENT [facility] MDM 60-74 MINUTES Norm Sharif MD [address] [place] [address] Referral ID Status Reason Start Date Expiration Date V isits Requested Visits Authorized [id number] Closed PCP Requested Referral 09/17/2022 09/17/2023 1 1 Reason Onset Date Comments Community Monitoring Outreach 10/15/2022 CD M telephonic outreach Reason Comments Blood Pressure Check Reason Onset Date Comments Community Monitoring Outreach 11/11/2022 CD M telephonic outreach Reason Onset Date Comments Community Monitoring Outreach 11/12/2022 CD M telephonic outreach Reason Onset Date Comments Community Monitoring Outreach 11/13/2022 CD M telephonic outreach Reason Onset Date Comments Community Monitoring Outreach 11/27/2022 CD M telephonic outreach Reason Onset Date Comments Community Monitoring Outreach 11/28/2022 CD M telephonic outreach Reason Comments Recheck 3 month Reason Onset Date Comments Community Monitoring Outreach 12/26/2022 M Telephonic Outreach - Routine Reason Comments Rash chest, neck and unde rarms x 3 weeks, itching Reason Onset Date Comments Community Monitoring Outreach 01/09/2023 M Telephonic Outreach - Routine Reason Onset Date Comments Community Monitoring Outreach 01/12/2023 M Telephonic Outreach - Routine Reason Comments Orders Reason Comments Follow Up Reason Onset Date Comments [facility] 02/10/2023 Telephonic Outre ach Reason Onset Date Comments [facility] 03/02/2023 Telephonic Outre ach Reason Comments Patient Question Reason Onset Date Comments Refill Request 03/04/2023 Reason Onset Date Comments [facility] 04/01/2023 Telephonic Outre ach Reason Onset Date Comments [facility] 04/02/2023 Telephonic Outre ach Reason Onset Date Comments community monitoring outreach 05/28/2023 M outreach Reason Comments 6 Month Exam Reason Comments Results Reason Onset Date Comments [facility] 06/24/2023 Telephonic Outre ach Reason Comments Orders CPAP Supplies Reason Onset Date Comments [facility] 07/07/2023 Telephonic Outre ach Reason Onset Date Comments [facility] 07/08/2023 Telephonic Outre ach Reason Comments Follow Up Review labs Reason Onset Date Comments [facility] 08/18/2023 Telephonic Outre ach Reason Onset Date Comments Refill Request 08/17/2023 Reason Onset Date Comments [facility] 08/19/2023 Telephonic Outre ach Reason Comments Letter Jury Duty excuse Reason Onset Date Comments [facility] 10/14/2023 Telephonic Outre ach Reason Comments New Patient Leg Pain Both, left is worse Specialty Diagnoses / Procedures Referred By Contjustine t Referred To Contact [facility] [place] Diagnoses Spinal stenosis of lumbar region, unspecified whether neurogenic claudication present Procedures CONSULT TO [facility] OFFICE/OUTPATIENT [facility] 60 MINUTES Norm Sharif MD [address] [place] [address] Referral ID Status Reason Start Date Expiration Date V isits Requested Visits Authorized [id number] Closed PCP Requested Referral 10/06/2023 10/05/2024 1 1 Care Teams (unrecognized sec tion and content) Welfare Case Worker Relationship Specialty Start Date End Date Norm Sharif MD [address] [place] [address] PCP - General Family Practice 11/16/12 Sissen, Deshawn, [facility] [address] [place] [address] Specialty Field Operations Manager Orthopedics 06/10/21 02/03/22 Welfare Case Worker Relationship Specialty Start Date End Date Norm Sharif MD [address] [place] [address] PCP - General Family Practice 11/16/12 Sissen, Deshawn, [facility] [address] [place] [address] Specialty Field Operations Manager Orthopedics 06/10/21 02/03/22 Welfare Case Worker Relationship Specialty Start Date End Date Norm Sharif MD [address] [place] [address] PCP - General Family Practice 11/16/12 Sissen, Deshawn, [facility] [address] [place] [address] Specialty Field Operations Manager Orthopedics 06/10/21 02/03/22 Welfare Case Worker Relationship Specialty Start Date End Date Norm Sharif MD [address] [place] [address] PCP - General Family Practice 11/16/12 Sissen, Deshawn, [facility] [address] [place] [address] Specialty Field Operations Manager Orthopedics 06/10/21 02/03/22 Welfare Case Worker Relationship Specialty Start Date End Date Norm Sharif MD [address] [place] [address] PCP - General Family Practice 11/16/12 Sissen, Deshawn, [facility] [address] [place] [address] Specialty Field Operations Manager Orthopedics 06/10/21 02/03/22 Welfare Case Worker Relationship Specialty Start Date End Date Norm Sharif MD [address] [place] [address] PCP - General Family Practice 11/16/12 Sissen, Deshawn, [facility] [address] [place] [address] Specialty Field Operations Manager Orthopedics 06/10/21 02/03/22 Welfare Case Worker Relationship Specialty Start Date End Date Norm Sharif MD [address] [place] [address] PCP - General Family Practice 11/16/12 Deshawn Momin, [facility] [address] [place] [address] Specialty Field Operations Manager Orthopedics 06/10/21 02/03/22 Welfare Case Worker Relationship Specialty Start Date End Date Norm Sharif MD [address] [place] [address] PCP - General Family Practice 11/16/12 Deshawn Momin, [facility] [address] [place] [address] Specialty Field Operations Manager Orthopedics 06/10/21 02/03/22 Welfare Case Worker Relationship Specialty Start Date End Date Norm Sharif MD [address] [place] [address] PCP - General Family Practice 11/16/12 Welfare Case Worker Relationship Specialty Start Date End Date Norm Sharif MD [address] [place] [address] PCP - General Family Practice 11/16/12 Welfare Case Worker Relationship Specialty Start Date End Date Norm Sharif MD [address] [place] [address] PCP - General Family Practice 11/16/12 Welfare Case Worker Relationship Specialty Start Date End Date Norm Sharif MD [address] [facility] [place] [address] PCP - General Family Practice 11/16/12 Welfare Case Worker Relationship Specialty Start Date End Date Norm Sharif MD [address] [facility] [place] [address] PCP - General Family Practice 11/16/12 Welfare Case Worker Relationship Specialty Start Date End Date Norm Sharif MD [address] [place] [address] PCP - General Family Practice 11/16/12 Welfare Case Worker Relationship Specialty Start Date End Date Norm Sharif MD [address] [place] [address] PCP - General Family Practice 11/16/12 Welfare Case Worker Relationship Specialty Start Date End Date Norm Sharif MD [address] [place] [address] PCP - General Family Practice 11/16/12 Welfare Case Worker Relationship Specialty Start Date End Date Norm Sharif MD [address] [place] [address] PCP - General Family Practice 11/16/12 Radha Martines RN [address] [place] [address] Pack Train Driver Internal Medicine 04/11/22 Welfare Case Worker Relationship Specialty Start Date End Date Norm Sharif MD [address] [facility] [place] [address] PCP - General Family Practice 11/16/12 Radha Martines, KYLEE [address] [place] [address] Pack Train Driver Internal Medicine 04/11/22 Welfare Case Worker Relationship Specialty Start Date End Date Norm Sharif MD [address] [place] [address] PCP - General Family Practice 11/16/12 Radha Martines RN [address] [place] [address] Pack Train Driver Internal Medicine 04/11/22 Welfare Case Worker Relationship Specialty Start Date End Date Norm Sharif MD [address] [place] [address] PCP - General Family Practice 11/16/12 Radha Martines, KYLEE [address] [place] [address] Pack Train Driver Internal Medicine 04/11/22 Welfare Case Worker Relationship Specialty Start Date End Date Norm Sharif MD [address] [place] [address] PCP - General Family Practice 11/16/12 Radha Martines, RN [address] [place] [address] [employer] Internal Medicine 04/11/22 Welfare Case Worker Relationship Specialty Start Date End Date Norm Sharif MD [address] [facility] [address] PCP - General Family Medicine 11/16/12 Radha Martines, RN [address] [place] [address] [employer] Driver Internal Medicine 04/11/22 Welfare Case Worker Relationship Specialty Start Date End Date Norm Sharif MD [address] [place] [address] PCP - General Family Medicine 11/16/12 Radha Martines, RN [address] [place] [address] [employer] Train Driver Internal Medicine 04/11/22 Welfare Case Worker Relationship Specialty Start Date End Date Norm Sharif MD [address] [place] [address] PCP - General Family Medicine 11/16/12 Radha Martines, RN [address] [place] [address] [employer] Train Driver Internal Medicine 04/11/22 Welfare Case Worker Relationship Specialty Start Date End Date Norm Sharif MD [address] [facility] [address] PCP - General Family Medicine 11/16/12 Radha Martines, RN [address] [place] [address] [employer] Driver Internal Medicine 04/11/22 Welfare Case Worker Relationship Specialty Start Date End Date Norm Sharif MD [address] [place] [address] PCP - General Family Medicine 11/16/12 Radha Martines, RN [address] [place] [address] [employer] Train Driver Internal Medicine 04/11/22 Welfare Case Worker Relationship Specialty Start Date End Date Norm Sharif MD [address] [place] [address] PCP - General Family Medicine 11/16/12 Radha Martines, RN [address] [place] [address] [employer] Driver Internal Medicine 04/11/22 Welfare Case Worker Relationship Specialty Start Date End Date Norm Sharif MD [address] [place] [address] PCP - General Family Medicine 11/16/12 Radha Martines, RN [address] [place] [address] [employer] Driver Internal Medicine 04/11/22 Welfare Case Worker Relationship Specialty Start Date End Date Norm Sharif MD [address] [place] [address] PCP - General Family Medicine 11/16/12 Radha Martines, KYLEE [address] [place] [address] [employer] Train Driver Internal Medicine 04/11/22 Welfare Case Worker Relationship Specialty Start Date End Date Norm Sharif MD [address] [facility] [address] PCP - General Family Medicine 11/16/12 Radha Martines, KYLEE [address] [place] [address] [employer] Driver Internal Medicine 04/11/22 Welfare Case Worker Relationship Specialty Start Date End Date Norm Sharif MD [address] [place] [address] PCP - General Family Medicine 11/16/12 Radha Martines, RN [address] [facility] [place] [address] Pack Train Driver Internal Medicine 04/11/22 Welfare Case Worker Relationship Specialty Start Date End Date Norm Sharif MD [address] [place] [address] PCP - General Family Medicine 11/16/12 Radha Martines, RN [address] [facility] [place] [address] Pack Train Driver Internal Medicine 04/11/22 Welfare Case Worker Relationship Specialty Start Date End Date Norm Sharif MD [address] [place] [address] PCP - General Family Medicine 11/16/12 Radha Martines, KYLEE [address] [place] [address] [employer] Train Driver Internal Medicine 04/11/22 Welfare Case Worker Relationship Specialty Start Date End Date Norm Sharif MD [address] [place] [address] PCP - General Family Medicine 11/16/12 Radha Martines, KYLEE [address] [place] [address] Pack Train Driver Internal Medicine 04/11/22 Welfare Case Worker Relationship Specialty Start Date End Date Norm Sharif MD [address] [place] [address] PCP - General Family Medicine 11/16/12 Radha Martines, RN [address] [facility] [place] [place] [address] Pack Train Driver Internal Medicine 04/11/22 Welfare Case Worker Relationship Specialty Start Date End Date Norm Sharif MD [address] [place] [address] PCP - General Family Medicine 11/16/12 Radha Martines, RN [address] [place] [address] [employer] Driver Internal Medicine 04/11/22 Welfare Case Worker Relationship Specialty Start Date End Date Norm Sharif MD [address] [place] [address] PCP - General Family Medicine 11/16/12 Radha Martines, RN [address] [place] [address] [employer] Train Driver Internal Medicine 04/11/22 Welfare Case Worker Relationship Specialty Start Date End Date Norm Sharif MD [address] [place] [address] PCP - General Family Medicine 11/16/12 Radha Martines, RN [address] [place] [address] [employer] Driver Internal Medicine 04/11/22 Welfare Case Worker Relationship Specialty Start Date End Date Norm Sharif MD [address] [place] [address] PCP - General Family Medicine 11/16/12 Radha Martines, KYLEE [address] [place] [address] [employer] Driver Internal Medicine 04/11/22 Welfare Case Worker Relationship Specialty Start Date End Date Norm Sharif MD [address] [place] [address] PCP - General Family Medicine 11/16/12 Radha Martines, RN [address] [place] [address] [employer] Driver Internal Medicine 04/11/22 Welfare Case Worker Relationship Specialty Start Date End Date Norm Sharif MD [address] [place] [address] PCP - General Family Medicine 11/16/12 Radha Martines, RN [address] [place] [address] Pack Train Driver Internal Medicine 04/11/22 Welfare Case Worker Relationship Specialty Start Date End Date [place], Norm J, MD [address] [facility] [address] PCP - General Family Medicine 11/16/12 Darlene Tate, equipment managerPack Train Driver 02/09/23 Welfare Case Worker Relationship Specialty Start Date End Date Norm Sharif MD [address] [place] [address] PCP - General Family Medicine 11/16/12 Darlene Tate, equipment managerPack Train Driver 02/09/23 Welfare Case Worker Relationship Specialty Start Date End Date Norm Sharif MD [address] [place] [address] PCP - General Family Medicine 11/16/12 Darlene Tate, equipment managerPack Train Driver 02/09/23 Welfare Case Worker Relationship Specialty Start Date End Date Norm Sharif MD [address] [place] [address] PCP - General Family Medicine 11/16/12 Darlene Tate, equipment managerPack Train Driver 02/09/23 Welfare Case Worker Relationship Specialty Start Date End Date Norm Sharif MD [address] [place] [address] PCP - General Family Medicine 11/16/12 Darlene Tate, equipment managerPack Train Driver 02/09/23 Welfare Case Worker Relationship Specialty Start Date End Date Norm Sharif MD [address] [place] [address] PCP - General Family Medicine 11/16/12 Darlene Tate, equipment managerPack Train Driver 02/09/23 Welfare Case Worker Relationship Specialty Start Date End Date Norm Sharif MD [address] [place] [address] PCP - General Family Medicine 11/16/12 Darlene Tate, equipment managerPack Train Driver 02/09/23 Welfare Case Worker Relationship Specialty Start Date End Date Norm Sharif MD [address] [place] [address] PCP - General Family Medicine 11/16/12 Darlene Tate, equipment managerPack Train Driver 02/09/23 Welfare Case Worker Relationship Specialty Start Date End Date Norm Sharif MD [address] [place] [address] PCP - General Family Medicine 11/16/12 Darlene Tate, equipment managerPack Train Driver 02/09/23 Welfare Case Worker Relationship Specialty Start Date End Date Norm Sharif MD [address] [place] [address] PCP - General Family Medicine 11/16/12 Darlene Tate, equipment managerPack Train Driver 02/09/23 Welfare Case Worker Relationship Specialty Start Date End Date Norm Sharif MD [address] [place] [address] PCP - General Family Medicine 11/16/12 Darlene Tate, equipment managerPack Train Driver 02/09/23 Welfare Case Worker Relationship Specialty Start Date End Date Norm Sharif MD [address] [place] [address] PCP - General Family Medicine 11/16/12 Darlene Tate, equipment managerPack Train Driver 02/09/23 Welfare Case Worker Relationship Specialty Start Date End Date Norm Sharif MD [address] [place] [address] PCP - General Family Medicine 11/16/12 Darlene Tate, equipment managerPack Train Driver 02/09/23 Welfare Case Worker Relationship Specialty Start Date End Date Norm Sharif MD [address] [place] [address] PCP - General Family Medicine 11/16/12 Darlene Tate, equipment managerPack Train Driver 02/09/23 Welfare Case Worker Relationship Specialty Start Date End Date Norm Sharif MD [address] [place] [address] PCP - General Family Medicine 11/16/12 Darlene Tate, equipment managerPack Train Driver 02/09/23 Welfare Case Worker Relationship Specialty Start Date End Date Norm Sharif MD [address] [place] [address] PCP - General Family Medicine 11/16/12 Darlene Tate, equipment managerPack Train Driver 02/09/23 Welfare Case Worker Relationship Specialty Start Date End Date Norm Sharif MD [address] [place] [address] PCP - General Family Medicine 11/16/12 Darlene Tate, equipment managerPack Train Driver 02/09/23 Welfare Case Worker Relationship Specialty Start Date End Date Norm Sharif MD [address] [place] [address] PCP - General Family Medicine 11/16/12 Darlene Tate, equipment managerPack Train Driver 02/09/23 Welfare Case Worker Relationship Specialty Start Date End Date Norm Sharif MD [address] [place] [address] PCP - General Family Medicine 11/16/12 Darlene Tate, equipment managerPack Train Driver 02/09/23 Welfare Case Worker Relationship Specialty Start Date End Date Norm Sharif MD [address] [place] [address] PCP - General Family Medicine 11/16/12 Darlene Tate, equipment managerPack Train Driver 02/09/23 Welfare Case Worker Relationship Specialty Start Date End Date Norm Sharif MD [address] [place] [address] PCP - General Family Medicine 11/16/12 Darlene Tate, equipment managerPack Train Driver 02/09/23 INFORMATION SOURCE (unrecogn ized section and content) DATE CREATED AUTHOR AUTHOR'S ORGANIZ ATION 02/14/2022 [facility] DATE CREATED AUTHOR AUTHOR'S ORGANIZ ATION 03/09/2022 [facility] DATE CREATED AUTHOR AUTHOR'S ORGANIZ ATION 10/27/2023 [facility] FOR RECORDS PERTAINING TO PATIENTS WHO ARE OR HAVE BEEN ENROLLED IN A CHEMICAL DEPENDENCY/SUBSTANCEABUSE PROGRAM, SOME INFORMATION MAY BE OMITTED. This clinical summary was aggregated from multiple sources. Caution should be exercised in using it in the provision of clinical care. This summary normalizes information from multiple sources, and as a consequence, information in this document may materially change the coding, format and clinical context of patient data. In addition, data may be omitted in some cases. CLINICAL DECISIONS SHOULD BE BASED ON THE PRIMARY CLINICAL RECORDS. [facility] [employer] [facility]. provides no warranty or guarantee of the accuracy or completeness of information in this document.
[2023-11-06 18:07] LABS: Erythrocyte Sedimentation Rate 36 mm/hr (0-30)
[2023-11-06 18:11] LABS: ALB/GLOB Ratio 0.9 RATIO (0.9-2.4); AST(SGOT) 23 U/L (15-37); Alanine Aminotransfer ALT/SGPT 21 U/L (13-56); Albumin, Serum 3.7 g/dL (3.2-5.0); Alkaline Phosphatase 66 U/L (45-117); Anion Gap 6 (5-15); BUN 19 mg/dL (7-18); BUN/Creat Ratio 20.5 RATIO (10-20); Calcium,Total 9.1 mg/dL (8.5-10.1); Chloride 106 mmol/L (98-107); Creatinine, Serum 0.93 mg/dL (0.55-1.02); EST Glomerular Filtration Rate 62 mL/min (>60); Est Glom Filt Rate - Afr Amer 75 mL/min (>60); Globulin 3.9 g/dL (2.2-4.2); Glucose 97 mg/dL (74-106); Potassium 3.9 mmol/L (3.5-5.1); Protein, Total 7.6 g/dL (6.4-8.2); Rheumatoid Factor < 10.0 IU/mL (<15); Sodium Level 139 mmol/L (136-145)
[2023-11-06 18:54] LABS: Hepatitis B Surface Antibody Reactive; Hepatitis C Antibody Non-Reactive (Nonreactive)
[2023-11-09 12:08] LABS: CCP IgG Antibodies 16 units (0-19)
[2023-11-09 13:07] LABS: ANTINUCLEAR ANTIBODIES DIRECT Negative (Negative)
== END | disposition home or self-care (01) ==
LOC: MTLAB 15:00
PROVIDERS: PCP Family Medicine; Referring Provider Internal Medicine Rheumatology; Visit Provider Internal Medicine Rheumatology
DX: L40.59 Other psoriatic arthropathy (principal); M79.7 Fibromyalgia
CPT/HCPCS: 36415; 80053; 85025; 85652; 86038; 86140; 86200; 86431; 86706; 86803

== ENCOUNTER → 2023-12-28 | Outpatient (CLI) | payer MEDICARE, SELFPAY ==
[2023-12-28 10:03] LABS: Absolute Lymphocyte Count 1.22 X10^3/uL (0.83-4.51); Absolute Neutrophil Count 5.6 X10^3/uL (2.0-7.7); Basophil# 0.03 X10^3/uL; Basophil% 0.4 % (0-1); Eosinophil# 0.23 X10^3/uL; Eosinophils% 2.9 % (0-5); Hematocrit 34.9 % (37-47); Hemoglobin 11.2 g/dL (12.0-15.0); Lymphocyte # 1.22 X10^3/ul (0.83-4.51); Lymphocyte % 15.6 % (19-41); Mean Corp Hgb Conc 32.1 g/dL (32-36); Mean Corpuscular Hgb 29.6 pg (27.0-32.0); Mean Corpuscular Volume 92.3 fL (81-99); Mean Platelet Vol. 10.4 fl (6.2-12.0); Monocyte# 0.77 X10^3/uL; Monocyte% 9.8 % (0-10); NRBC Flagged by Analyzer 0 % (0-5); Neutrophil # 5.56 X10^3/uL (2.7-7.7); Platelet Count 293 K/mm3 (150-450); RBC Distribution Width CV 13.2 % (11.6-14.6); RBC Distribution Width SD 44.1 fl (35.1-43.9); Red Blood Count 3.78 M/mm3 (4.2-5.4); White Blood Count 7.8 K/mm3 (4.4-11.0)
[2023-12-28 10:39] LABS: ALB/GLOB Ratio 0.9 RATIO (0.9-2.4); AST(SGOT) 22 U/L (15-37); Alanine Aminotransfer ALT/SGPT 19 U/L (13-56); Albumin, Serum 3.5 g/dL (3.2-5.0); Alkaline Phosphatase 61 U/L (45-117); Anion Gap 2 (5-15); BUN 25 mg/dL (7-18); BUN/Creat Ratio 22.3 RATIO (10-20); Calcium,Total 8.6 mg/dL (8.5-10.1); Chloride 106 mmol/L (98-107); Creatinine, Serum 1.12 mg/dL (0.55-1.02); EST Glomerular Filtration Rate 50 mL/min (>60); Est Glom Filt Rate - Afr Amer 60 mL/min (>60); Globulin 3.9 g/dL (2.2-4.2); Glucose 95 mg/dL (74-106); Potassium 4.3 mmol/L (3.5-5.1); Protein, Total 7.4 g/dL (6.4-8.2); Sodium Level 138 mmol/L (136-145)
== END | disposition home or self-care (01) ==
LOC: MTLAB 09:01
PROVIDERS: PCP Family Medicine; Referring Provider Internal Medicine Rheumatology; Visit Provider Internal Medicine Rheumatology
DX: L40.59 Other psoriatic arthropathy (principal); M79.7 Fibromyalgia; Z79.899 Other long term (current) drug therapy
CPT/HCPCS: 36415; 80053; 85025

== ENCOUNTER → 2024-02-12 | Outpatient (CLI) | payer MEDICARE, SELFPAY ==
[2024-02-12 12:46] LABS: ALB/GLOB Ratio 0.8 RATIO (0.9-2.4); AST(SGOT) 24 U/L (15-37); Alanine Aminotransfer ALT/SGPT 20 U/L (13-56); Albumin, Serum 3.6 g/dL (3.2-5.0); Alkaline Phosphatase 69 U/L (45-117); Anion Gap 9 (5-15); BUN 29 mg/dL (7-18); BUN/Creat Ratio 24.6 RATIO (10-20); Calcium,Total 9.5 mg/dL (8.5-10.1); Chloride 107 mmol/L (98-107); Creatinine, Serum 1.18 mg/dL (0.55-1.02); EST Glomerular Filtration Rate 47 mL/min (>60); Est Glom Filt Rate - Afr Amer 56 mL/min (>60); Globulin 4.4 g/dL (2.2-4.2); Glucose 85 mg/dL (74-106); Potassium 4.1 mmol/L (3.5-5.1); Sodium Level 139 mmol/L (136-145)
== END | disposition home or self-care (01) ==
LOC: MTLAB 10:11
PROVIDERS: PCP Family Medicine; Referring Provider Internal Medicine Rheumatology; Visit Provider Internal Medicine Rheumatology
DX: L40.59 Other psoriatic arthropathy (principal); M79.7 Fibromyalgia; Z79.899 Other long term (current) drug therapy
CPT/HCPCS: 36415; 80053

== ENCOUNTER → 2024-03-16 | Outpatient (CLI) | payer MEDICARE, SELFPAY ==
[2024-03-16 11:29] LABS: ALB/GLOB Ratio 0.9 RATIO (0.9-2.4); AST(SGOT) 20 U/L (15-37); Alanine Aminotransfer ALT/SGPT 20 U/L (13-56); Albumin, Serum 3.5 g/dL (3.2-5.0); Alkaline Phosphatase 70 U/L (45-117); Anion Gap 7 (5-15); BUN 22 mg/dL (7-18); BUN/Creat Ratio 23.8 RATIO (10-20); Calcium,Total 9.3 mg/dL (8.5-10.1); Chloride 108 mmol/L (98-107); Creatinine, Serum 0.92 mg/dL (0.55-1.02); EST Glomerular Filtration Rate 62 mL/min (>60); Est Glom Filt Rate - Afr Amer 75 mL/min (>60); Globulin 4.1 g/dL (2.2-4.2); Glucose 88 mg/dL (74-106); Potassium 4.1 mmol/L (3.5-5.1); Protein, Total 7.6 g/dL (6.4-8.2); Sodium Level 141 mmol/L (136-145)
== END | disposition home or self-care (01) ==
LOC: MTLAB 09:21
PROVIDERS: PCP Family Medicine; Referring Provider Internal Medicine Rheumatology; Visit Provider Internal Medicine Rheumatology
DX: L40.59 Other psoriatic arthropathy (principal); Z79.899 Other long term (current) drug therapy; M79.7 Fibromyalgia
CPT/HCPCS: 36415; 80053

== ENCOUNTER → 2024-05-13 | Outpatient (CLI) | payer MEDICARE, SELFPAY ==
[2024-05-13 10:29] LABS: Absolute Lymphocyte Count 1.13 X10^3/uL (0.83-4.51); Absolute Neutrophil Count 5.1 X10^3/uL (2.0-7.7); Basophil# 0.03 X10^3/uL; Basophil% 0.4 % (0-1); Eosinophil# 0.21 X10^3/uL; Eosinophils% 2.9 % (0-5); Hematocrit 34.5 % (37-47); Hemoglobin 11.1 g/dL (12.0-15.0); Lymphocyte # 1.13 X10^3/ul (0.83-4.51); Lymphocyte % 15.4 % (19-41); Mean Corp Hgb Conc 32.2 g/dL (32-36); Mean Corpuscular Hgb 30.2 pg (27.0-32.0); Mean Corpuscular Volume 93.8 fL (81-99); Mean Platelet Vol. 10.1 fl (6.2-12.0); Monocyte# 0.85 X10^3/uL; Monocyte% 11.6 % (0-10); NRBC Flagged by Analyzer 0 % (0-5); Neutrophil # 5.11 X10^3/uL (2.7-7.7); Neutrophil % 69.4 % (47-70); Platelet Count 299 K/mm3 (150-450); RBC Distribution Width CV 13.2 % (11.6-14.6); RBC Distribution Width SD 45.2 fl (35.1-43.9); Red Blood Count 3.68 M/mm3 (4.2-5.4); White Blood Count 7.4 K/mm3 (4.4-11.0)
[2024-05-13 11:19] LABS: ALB/GLOB Ratio 0.8 RATIO (0.9-2.4); AST(SGOT) 20 U/L (15-37); Alanine Aminotransfer ALT/SGPT 19 U/L (13-56); Albumin, Serum 3.3 g/dL (3.2-5.0); Alkaline Phosphatase 73 U/L (45-117); Anion Gap 5 (5-15); BUN 24 mg/dL (7-18); BUN/Creat Ratio 24.7 RATIO (10-20); Calcium,Total 9.4 mg/dL (8.5-10.1); Chloride 108 mmol/L (98-107); Creatinine, Serum 0.97 mg/dL (0.55-1.02); EST Glomerular Filtration Rate 58 mL/min (>60); Est Glom Filt Rate - Afr Amer 71 mL/min (>60); Globulin 4.1 g/dL (2.2-4.2); Glucose 89 mg/dL (74-106); Potassium 4.3 mmol/L (3.5-5.1); Protein, Total 7.4 g/dL (6.4-8.2); Sodium Level 139 mmol/L (136-145)
== END | disposition home or self-care (01) ==
LOC: MTLAB 09:49
PROVIDERS: PCP Family Medicine; Referring Provider Internal Medicine Rheumatology; Visit Provider Internal Medicine Rheumatology
DX: L40.59 Other psoriatic arthropathy (principal); Z79.899 Other long term (current) drug therapy; M79.7 Fibromyalgia
CPT/HCPCS: 36415; 80053; 85025

== ENCOUNTER → 2024-07-07 | Outpatient (CLI) | payer MEDICARE, SELFPAY ==
[2024-07-07 12:31] LABS: Absolute Lymphocyte Count 1.14 X10^3/uL (0.83-4.51); Absolute Neutrophil Count 5.9 X10^3/uL (2.0-7.7); Basophil# 0.03 X10^3/uL; Basophil% 0.4 % (0-1); Eosinophil# 0.15 X10^3/uL; Eosinophils% 1.8 % (0-5); Hematocrit 34.3 % (37-47); Hemoglobin 10.8 g/dL (12.0-15.0); Lymphocyte # 1.14 X10^3/ul (0.83-4.51); Lymphocyte % 14.1 % (19-41); Mean Corp Hgb Conc 31.5 g/dL (32-36); Mean Corpuscular Hgb 30.2 pg (27.0-32.0); Mean Corpuscular Volume 95.8 fL (81-99); Mean Platelet Vol. 10.6 fl (6.2-12.0); Monocyte# 0.82 X10^3/uL; Monocyte% 10.1 % (0-10); NRBC Flagged by Analyzer 0 % (0-5); Neutrophil # 5.94 X10^3/uL (2.7-7.7); Neutrophil % 73.2 % (47-70); Platelet Count 323 K/mm3 (150-450); RBC Distribution Width CV 13.5 % (11.6-14.6); RBC Distribution Width SD 47.1 fl (35.1-43.9); Red Blood Count 3.58 M/mm3 (4.2-5.4); White Blood Count 8.1 K/mm3 (4.4-11.0)
[2024-07-07 12:48] LABS: ALB/GLOB Ratio 0.8 RATIO (0.9-2.4); AST(SGOT) 16 U/L (15-37); Alanine Aminotransfer ALT/SGPT 14 U/L (13-56); Albumin, Serum 3.3 g/dL (3.2-5.0); Alkaline Phosphatase 72 U/L (45-117); Anion Gap 4 (5-15); BUN 29 mg/dL (7-18); BUN/Creat Ratio 27.9 RATIO (10-20); Calcium,Total 9.1 mg/dL (8.5-10.1); Chloride 108 mmol/L (98-107); Creatinine, Serum 1.04 mg/dL (0.55-1.02); EST Glomerular Filtration Rate 54 mL/min (>60); Est Glom Filt Rate - Afr Amer 65 mL/min (>60); Globulin 4.2 g/dL (2.2-4.2); Glucose 93 mg/dL (74-106); Potassium 4.3 mmol/L (3.5-5.1); Protein, Total 7.5 g/dL (6.4-8.2); Sodium Level 138 mmol/L (136-145)
== END | disposition home or self-care (01) ==
PROVIDERS: PCP Family Medicine; Referring Provider Internal Medicine Rheumatology; Visit Provider Internal Medicine Rheumatology
DX: L40.59 Other psoriatic arthropathy (principal); Z79.899 Other long term (current) drug therapy; M79.7 Fibromyalgia
CPT/HCPCS: 36415; 80053; 85025

== ENCOUNTER → 2024-12-29 | Outpatient (CLI) | payer MEDICARE, SELFPAY ==
[2024-12-29 12:48] LABS: Absolute Lymphocyte Count 1.14 X10^3/uL (0.83-4.51); Absolute Neutrophil Count 3.6 X10^3/uL (2.0-7.7); Basophil# 0.04 X10^3/uL; Basophil% 0.7 % (0-1); Eosinophil# 0.19 X10^3/uL; Eosinophils% 3.3 % (0-5); Hematocrit 35.3 % (37-47); Hemoglobin 11.3 g/dL (12.0-15.0); Lymphocyte # 1.14 X10^3/ul (0.83-4.51); Mean Corpuscular Hgb 29.2 pg (27.0-32.0); Mean Corpuscular Volume 91.2 fL (81-99); Monocyte# 0.71 X10^3/uL; Monocyte% 12.5 % (0-10); NRBC Flagged by Analyzer 0 % (0-5); Neutrophil % 63.1 % (47-70); Platelet Count 316 K/mm3 (150-450); RBC Distribution Width CV 13.2 % (11.6-14.6); RBC Distribution Width SD 44.1 fl (35.1-43.9); Red Blood Count 3.87 M/mm3 (4.2-5.4); White Blood Count 5.7 K/mm3 (4.4-11.0)
[2024-12-29 13:28] LABS: ALB/GLOB Ratio 1.1 RATIO (0.9-2.4); AST(SGOT) 20 U/L (<=31); Alanine Aminotransfer ALT/SGPT 8 U/L (<=34); Albumin, Serum 3.8 g/dL (3.4-4.8); Alkaline Phosphatase 69 U/L (35-104); Anion Gap 10 (5-15); BUN 21 mg/dL (4-19); BUN/Creat Ratio 22.8 RATIO (10-20); Calcium,Total 9.4 mg/dL (7.6-11.0); Carbon Dioxide 25.8 mmol/L (21.0-32.0); Chloride 105 mmol/L (98-108); Creatinine, Serum 0.91 mg/dL (0.70-1.20); EST Glomerular Filtration Rate 63 (>60); Globulin 3.4 g/dL (2.2-4.2); Glucose 93 mg/dL (70-99); Potassium 4.2 mmol/L (3.3-5.1); Protein, Total 7.2 g/dL (5.9-8.4); Sodium Level 141 mmol/L (133-145); Total Bilirubin 0.37 mg/dL (0.00-1.30)
== END | disposition home or self-care (01) ==
LOC: MTLAB 10:07
PROVIDERS: PCP Family Medicine; Referring Provider Internal Medicine Rheumatology; Visit Provider Internal Medicine Rheumatology
DX: L40.59 Other psoriatic arthropathy (principal); M79.7 Fibromyalgia; Z79.899 Other long term (current) drug therapy
CPT/HCPCS: 36415; 80053; 85025

== ENCOUNTER → 2025-03-17 | Outpatient (CLI) | payer MEDICARE, SELFPAY ==
[2025-03-17 12:42] LABS: Hematocrit 33.4 % (37-47); Hemoglobin 10.8 g/dL (12.0-15.0); Immature Granulocytes Count 0.040 X10^3/uL (0.0-0.0); Mean Corp Hgb Conc 32.3 g/dL (32-36); Mean Corpuscular Volume 95.7 fL (81-99); Mean Platelet Vol. 10.7 fl (6.2-12.0); NRBC Flagged by Analyzer 0 % (0-5); Platelet Count 281 K/mm3 (150-450); RBC Distribution Width CV 13.8 % (11.6-14.6); RBC Distribution Width SD 48.0 fl (35.1-43.9); Red Blood Count 3.49 M/mm3 (4.2-5.4); White Blood Count 7.1 K/mm3 (4.4-11.0)
[2025-03-17 13:12] LABS: AST(SGOT) 23 U/L (<=31); Alanine Aminotransfer ALT/SGPT 10 U/L (<=34); Albumin, Serum 3.8 g/dL (3.4-4.8); Alkaline Phosphatase 70 U/L (35-104); Anion Gap 11 (5-15); BUN 25 mg/dL (4-19); BUN/Creat Ratio 26.7 RATIO (10-20); Calcium,Total 9.2 mg/dL (7.6-11.0); Carbon Dioxide 24.4 mmol/L (21.0-32.0); Chloride 107 mmol/L (98-108); Globulin 3.0 g/dL (2.2-4.2); Glucose 90 mg/dL (70-99); Potassium 4.2 mmol/L (3.3-5.1)
== END | disposition home or self-care (01) ==
LOC: MTLAB 11:02
PROVIDERS: PCP Family Medicine; Referring Provider Internal Medicine Rheumatology; Visit Provider Internal Medicine Rheumatology
DX: L40.59 Other psoriatic arthropathy (principal); M79.7 Fibromyalgia; Z79.899 Other long term (current) drug therapy
CPT/HCPCS: 36415; 80053; 85025